=== PATIENT | female | born 1980 | race Caucasian/White ===

== ENCOUNTER 2017-08-18 14:23 | Inpatient (IN) | payer OTHER, MEDICARE ==
[~2017-08-18] VITALS: Ht 170.2 cm; Wt 59.0 kg
[~2017-08-18 14:23] MED LIST: ATEN25TA PO; BROM2.5T3 PO; BUPR300T3 PO; CLON1TAB3 PO; HYDR-2678 PO; LISI-334 PO; OXYC1TAB7 PO; PANT40TA5 PO; PHEN-318 PO
--- NOTE | 2017-08-18 15:09 | PHYS DOC ---
Past Medical History Past Medical History: Abscess, Ovarian Cyst, P.I.D. Additional Past Medical Histor: crohn's Past Surgical History: Oophorectomy Additional Past Surgical Histo: colostomy, left oophorectomy Alcohol Use: Rarely Drug Use: None, Opiates Adult General Chief Complaint Chief Complaint: ABDOMINAL PAIN HPI HPI Patient is a 37 year old female who presents with abdominal pain, nausea vomiting. She states his symptoms started about a month ago and has gotten better but over the last 3 days Has gotten worse. She states whenever she is trying to relate she has to push extremely hard and her stoma comes up and then it comes back again. She states she's been having normal ostomy output. She states her pain is in her suprapubic area. She states she's been having some nausea and vomiting over the last several days. She denies any fevers or chills or chest pain or shortness of breath. She states in November Dr. Holt moves her stoma from the right lower quadrant to the left lower quadrant. She states she feels like the scar tissue from her old stoma is was causing the pain and discomfort. She states her GI doctor is Dr. Richard Loco. Her primary care physician is Dr. Leland Purcell from [facility]. Review of Systems Review of Systems Constitutional: Denies fever or chills [] Eyes: Denies change in visual acuity, redness, or eye pain [] HENT: Denies nasal congestion or sore throat [] Respiratory: Denies cough or shortness of breath [] Cardiovascular: No additional information not addressed in HPI [] GI: Positive for abdominal pain, nausea, vomiting, Deniesbloody stools or diarrhea [] : Denies dysuria or hematuria [] Musculoskeletal: Denies back pain or joint pain [] Integument: Denies rash or skin lesions [] Neurologic: Denies headache, focal weakness or sensory changes [] Endocrine: Denies polyuria or polydipsia [] Current Medications Current Medications Current Medications Medications (Trade) Dose Ordered Sig/Jay Jay Start Time Stop Time Status Last Admin Dose Admin Diphenhydramine HCl (Benadryl) 25 mg 1X ONCE 08/18/17 16:15 08/18/17 16:16 DC 08/18/17 16:07 25 MG Hydromorphone HCl (Dilaudid) 1 mg PRN Q15MIN PRN 08/18/17 16:00 08/19/17 15:59 08/18/17 16:08 1 MG Morphine Sulfate 2 mg PRN Q15MIN PRN 08/18/17 15:30 08/19/17 15:29 08/18/17 15:38 2 MG Ondansetron HCl (Zofran) 4 mg 1X ONCE 08/18/17 16:15 08/18/17 16:16 DC 08/18/17 16:07 4 MG Sodium Chloride 1,000 ml @ 1,000 mls/hr Q1H 08/18/17 15:30 08/18/17 16:29 DC 08/18/17 15:37 1,000 MLS/HR Allergies Allergies Allergies Coded Allergies Type Severity Reaction Last Updated Verified Iodinated Contrast- Oral and IV Dye Allergy Severe Hives 08/20/14 Yes clindamycin Allergy Severe Hives, feeling of thickening of the throat Yes promethazine Allergy Severe ANAPHALAXIS 08/23/14 Yes amoxicillin Allergy Intermediate Cephalosporins OK 10/09/14 No fentanyl Allergy Intermediate 08/04/14 Yes metoclopramide Allergy Intermediate 08/04/14 Yes ondansetron Allergy Intermediate takes zofran odt at home 08/18/17 Yes Physical Exam Physical Exam Constitutional: Well developed, well nourished, no acute distress, non-toxic appearance. [] HENT: Normocephalic, atraumatic, bilateral external ears normal, oropharynx moist, no oral exudates, nose normal. [] Eyes: PERRLA, EOMI, conjunctiva normal, no discharge. [] Neck: Normal range of motion, no tenderness, supple, no stridor. [] Cardiovascular:Heart rate regular rhythm, no murmur [] Lungs & Thorax: Bilateral breath sounds clear to auscultation [] Abdomen: Bowel sounds hypoactive, soft, tender palpation throughout the bilateral lower quadrants, no rebound or guarding, multiple well-healed incisions throughout the abdominal area, no masses, no pulsatile masses. [] Skin: Warm, dry, no erythema, no rash. [] Back: No tenderness, no CVA tenderness. [] Extremities: No tenderness, no cyanosis, no clubbing, ROM intact, no edema. [] Neurologic: Alert and oriented X 3, normal motor function, normal sensory function, no focal deficits noted. [] Psychologic: Affect normal, judgement normal, mood normal. [] Current Patient Data Vital Signs Vital Signs Date Time Temp Pulse Resp B/P (MAP) Pulse Ox O2 Delivery O2 Flow Rate FiO2 08/18/17 16:55 22 Room Air 08/18/17 15:30 103 127/88 (101) 98 08/18/17 14:39 98.0 98.0 Lab Values Laboratory Tests Test 08/18/17 15:25 08/18/17 16:18 08/18/17 16:34 White Blood Count 9.7 x10^3/uL (4.0-11.0) Red Blood Count 4.97 x10^6/uL (3.50-5.40) Hemoglobin 15.2 g/dL (12.0-15.5) Hematocrit 45.7 % (36.0-47.0) Mean Corpuscular Volume 92 fL (79-100) Mean Corpuscular Hemoglobin 31 pg (25-35) Mean Corpuscular Hemoglobin Concent 33 g/dL (31-37) Red Cell Distribution Width 13.0 % (11.5-14.5) Platelet Count 276 x10^3/uL (140-400) Neutrophils (%) (Auto) 63 % (31-73) Lymphocytes (%) (Auto) 27 % (24-48) Monocytes (%) (Auto) 8 % (0-9) Eosinophils (%) (Auto) 1 % (0-3) Basophils (%) (Auto) 1 % (0-3) Neutrophils # (Auto) 6.1 x10^3uL (1.8-7.7) Lymphocytes # (Auto) 2.6 x10^3/uL (1.0-4.8) Monocytes # (Auto) 0.8 x10^3/uL (0.0-1.1) Eosinophils # (Auto) 0.1 x10^3/uL (0.0-0.7) Basophils # (Auto) 0.1 x10^3/uL (0.0-0.2) Sodium Level 137 mmol/L (136-145) Potassium Level 4.4 mmol/L (3.5-5.1) Chloride Level 100 mmol/L (98-107) Carbon Dioxide Level 25 mmol/L (21-32) Anion Gap 12 (6-14) Blood Urea Nitrogen 15 mg/dL (7-20) Creatinine 1.0 mg/dL (0.6-1.0) Estimated GFR (Cockcroft-Gault) 62.4 Glucose Level 103 mg/dL (70-99) H Calcium Level 9.7 mg/dL (8.5-10.1) Total Bilirubin 0.6 mg/dL (0.2-1.0) Direct Bilirubin 0.1 mg/dL (0.0-0.2) Aspartate Amino Transferase (AST) 27 U/L (15-37) Alanine Aminotransferase (ALT) 54 U/L (14-59) Alkaline Phosphatase 106 U/L (46-116) Creatine Kinase 75 U/L (26-192) Creatine Kinase MB (Mass) 0.5 ng/mL (0.0-3.6) Creatine Kinase MB Relative Index 0.7 % (0-4) Total Protein 8.2 g/dL (6.4-8.2) Albumin 4.5 g/dL (3.4-5.0) Lipase 390 U/L (73-393) Prothrombin Time 12.9 SEC (11.7-14.0) Prothrombin Time INR 1.0 (0.8-1.1) PTT 30 SEC (24-38) Urine Collection Type U cath Urine Color Yellow Urine Clarity Clear Urine pH 6.0 Urine Specific [place] 1.025 Urine Protein 100 mg/dL (NEG-TRACE) Urine Glucose (UA) Negative mg/dL (NEG) Urine Ketones (Stick) Negative mg/dL (NEG) Urine Blood Negative (NEG) Urine Nitrite Negative (NEG) Urine Bilirubin Negative (NEG) Urine Urobilinogen Dipstick 0.2 mg/dL (0.2 mg/dL) Urine Leukocyte Esterase Small (NEG) Urine RBC 0 /HPF (0-2) Urine WBC 1-4 /HPF (0-4) Urine Bacteria 0 /HPF (0-FEW) Urine Mucus Mod /LPF Urine Opiates Screen Pos (NEG) Urine Methadone Screen Neg (NEG) Urine Barbiturates Neg (NEG) Urine Phencyclidine Screen Neg (NEG) Urine Amphetamine/Methamphetamine Neg (NEG) Urine Benzodiazepines Screen Pos (NEG) Urine Cocaine Screen Neg (NEG) Urine Cannabinoids Screen Neg (NEG) Urine Ethyl Alcohol Neg (NEG) Laboratory Tests 08/18/17 15:25 Laboratory Tests 08/18/17 15:25 EKG EKG [] Radiology/Procedures Radiology/Procedures [facility] [address] [place], [place] [id number] IMAGING REPORT Signed PATIENT: MATTHEW HOLGUIN ACCOUNT: [id number] : 1980 LOCATION: ER AGE: 37 SEX: F EXAM STATUS: REG ER ORD. PHYSICIAN: VICKIE RIVERA MD REASON: abd pain PROCEDURE: CT ABD PEL W/ORAL CONTRST ONLY CT ABD PEL W/ORAL CONTRST ONLY dated 08/18/2017 5:18 PM Indication: Abdominal pain and cramping Comparison: October 10, 2014 Technique: CT imaging was performed of the[abdomen and pelvis after administration of oral contrast], multiplanar reconstruction images submitted. No intravenous contrast was given due to stated allergy to iodine. One or more of the following individualized dose reduction techniques were utilized for this examination: 1. Automated exposure control 2. Adjustment of the mA and/or kV according to patient size 3. Use of iterative reconstruction technique. Findings: There is no significant abnormality of the limited visualized lung bases. Accurate evaluation of the abdominal visceral organs is limited without intravenous contrast. There is no obvious focal abnormality of the liver, spleen, pancreas. There has been cholecystectomy. There is larger exophytic lesion arising from the superior left kidney up to 1.3 cm versus previously 0.5 cm, density measurements slightly hyperdense compared with adjacent renal parenchyma. There is also more hyperdense lesion of the mid left kidney up to 1.1 cm, density measurements of 99 Hounsfield units versus renal parenchyma 36 Hounsfield units. This is larger as previously 0.8 cm. There is a small hyperdense lesion of the mid to inferior right kidney up to 0.4 cm. There is mild wall thickening of small bowel in the pelvis. There is a left ostomy. There has been colectomy. There is a small quantity of dependent free fluid in the pelvis. No free air is identified. 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 There is lumbar levoscoliosis. IMPRESSION: 1. Wall thickening of small bowel in the pelvis may be due to enteritis. There is a small quantity of nonspecific dependent free fluid in the pelvis. 2. There are foci of abnormal density of the left kidney, one of which is most likely due to a hyperdense hemorrhagic or proteinaceous cyst. Exophytic lesion arising from the superior left kidney is more similar to adjacent renal parenchyma, solid mass not excluded for which nonemergent pre and postcontrast CT or ultrasound advised. Electronically signed by: Marlen Camarillo MD (08/18/2017 5:56 PM) [facility] DICTATED and SIGNED BY: MARLEN CAMARILLO MD DATE: 08/18/17 0643 CC: LELAND PURCELL; VICKIE RIVERA MD ~ Impressions: Abdominal pain Crohn's disease Course & Med Decision Making Course & Med Decision Making Pertinent Labs and Imaging studies reviewed. (See chart for details) She's having severe pain and nausea which she has received Zofran with Benadryl IV fluids. CT with oral contrast and pelvis shows enteritis without any other acute abdomen mildly. Patient is requiring admission for pain control and IV hydration. She is in stable condition this time be admitted to the hospitalist. Her GI doc is Dr. Richard Loco but I do not believe he still is on staff at [place] therefore we will consult GI singer songwriter. Dragon Disclaimer Dragon Disclaimer This electronic medical record was generated, in whole or in part, using a voice recognition dictation system. Departure Departure Impression: Primary Impression: Abdominal pain Disposition: 09 ADMITTED INPATIENT Admitting Physician: Other Condition: STABLE Referrals: LELAND PURCELL (PCP) Problem Qualifiers Primary Impression: Abdominal pain Abdominal location: right lower quadrant Qualified Codes: R10.31 - Right lower quadrant pain VICKIE RIVERA MD Aug 18, 2017 15:09
[2017-08-18] MEDS ORDERED: IV NORMAL SALINE 1000ML BAG 1,000 ML IV SCH (15:30)
[2017-08-18] MEDS ORDERED: MORPHINE SULFATE 2 MG/ML DISP.SYRIN. IV/SQ PRN (15:30)
[2017-08-18] MEDS ORDERED: CLON0.5T3 PO (15:34)
[2017-08-18] MEDS ORDERED: BUSP15TA PO (15:34)
[2017-08-18] MEDS ORDERED: ONDA4TAB10 PO (15:37)
[2017-08-18] MEDS ORDERED: SIME125C65 PO (15:37)
[2017-08-18] MEDS ORDERED: PANT40TA3 PO (15:37)
[2017-08-18] MEDS ORDERED: BIOT10006 PO (15:37)
[2017-08-18 15:39] LABS: BASO # 0.1 x10^3/uL (0.0-0.2); BASO % 1 % (0-3); EOS % 1 % (0-3); HEMATOCRIT 45.7 % (36.0-47.0); HEMOGLOBIN 15.2 g/dL (12.0-15.5); LYMPH # 2.6 x10^3/uL (1.0-4.8); LYMPH % 27 % (24-48); MEAN CORPUSCULAR HEMOGLOBIN 31 pg (25-35); MEAN CORPUSCULAR HGB CONC 33 g/dL (31-37); MEAN CORPUSCULAR VOLUME 92 fL (79-100); MONO % 8 % (0-9); NEUT % 63 % (31-73); PLATELET COUNT 276 x10^3/uL (140-400); RED BLOOD COUNT 4.97 x10^6/uL (3.50-5.40); WHITE BLOOD COUNT 9.7 x10^3/uL (4.0-11.0)
[2017-08-18 16:00] LABS: ALBUMIN 4.5 g/dL (3.4-5.0); CALCIUM 9.7 mg/dL (8.5-10.1); DIRECT BILIRUBIN 0.1 mg/dL (0.0-0.2); GFR 62.4; POTASSIUM 4.4 mmol/L (3.5-5.1); TOTAL BILIRUBIN 0.6 mg/dL (0.2-1.0); TOTAL PROTEIN 8.2 g/dL (6.4-8.2)
[2017-08-18] MEDS ORDERED: HYDROmorphone 2 MG/ML VIAL IV/SQ PRN (16:00)
[2017-08-18 16:07] LABS: CKMB MASS 0.5 ng/mL (0.0-3.6)
[2017-08-18] MEDS ORDERED: ONDANSETRON PF 4 MG/2 ML VIAL. IV ONE ×2 (16:15→18:30)
[2017-08-18] MEDS ORDERED: diphenhydrAMINE 50 MG/ML VIAL IVP ONE ×2 (16:15→18:30)
[2017-08-18 16:36] LABS: PROTHROMBIN TIME PATIENT 12.9 SEC (11.7-14.0)
[2017-08-18 16:43] LABS: BILIRUBIN,URINE NEGATIVE (NEG); GLUCOSE,URINE NEGATIVE (NEG); NITRITE,URINE NEGATIVE (NEG); PROTEIN,URINE 100 mg/dL (NEG-TRACE); UROBILINOGEN,URINE 0.2 mg/dL (0.2 mg/dL)
[2017-08-18 16:51] LABS: BARBITURATES NEG (NEG); BENZODIAZEPINES POS (NEG); CANNABINOIDS NEG (NEG); COCAINE NEG (NEG); METHADONE NEG (NEG); OPIATES POS (NEG); PHENCYCLIDINE NEG (NEG)
[2017-08-18 16:53] LABS: BACTERIA,URINE 0 /HPF (0-FEW); RBC,URINE 0 /HPF (0-2)
--- NOTE | 2017-08-18 17:59 | RAD ---
CT ABD PEL W/ORAL CONTRST ONLY dated 08/18/2017 5:18 PM Indication: Abdominal pain and cramping Comparison: October 10, 2014 Technique: CT imaging was performed of the[abdomen and pelvis after administration of oral contrast], multiplanar reconstruction images submitted. No intravenous contrast was given due to stated allergy to iodine. One or more of the following individualized dose reduction techniques were utilized for this examination: 1. Automated exposure control 2. Adjustment of the mA and/or kV according to patient size 3. Use of iterative reconstruction technique. Findings: There is no significant abnormality of the limited visualized lung bases. Accurate evaluation of the abdominal visceral organs is limited without intravenous contrast. There is no obvious focal abnormality of the liver, spleen, pancreas. There has been cholecystectomy. There is larger exophytic lesion arising from the superior left kidney up to 1.3 cm versus previously 0.5 cm, density measurements slightly hyperdense compared with adjacent renal parenchyma. There is also more hyperdense lesion of the mid left kidney up to 1.1 cm, density measurements of 99 Hounsfield units versus renal parenchyma 36 Hounsfield units. This is larger as previously 0.8 cm. There is a small hyperdense lesion of the mid to inferior right kidney up to 0.4 cm. There is mild wall thickening of small bowel in the pelvis. There is a left ostomy. There has been colectomy. There is a small quantity of dependent free fluid in the pelvis. No free air is identified. 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 There is lumbar levoscoliosis. IMPRESSION: 1. Wall thickening of small bowel in the pelvis may be due to enteritis. There is a small quantity of nonspecific dependent free fluid in the pelvis. 2. There are foci of abnormal density of the left kidney, one of which is most likely due to a hyperdense hemorrhagic or proteinaceous cyst. Exophytic lesion arising from the superior left kidney is more similar to adjacent renal parenchyma, solid mass not excluded for which nonemergent pre and postcontrast CT or ultrasound advised. Electronically signed by: Amilcar Camarillo MD (08/18/2017 5:56 PM) [facility]
[2017-08-18] MEDS ORDERED: HYDROmorphone 2 MG/ML VIAL IV PRN (18:30)
[2017-08-18] MEDS ORDERED: diphenhydrAMINE HCL 25 MG CAPSULE PO PRN (18:30)
[2017-08-18] MEDS ORDERED: hydrALAZINE 20 MG/ML VIAL. IVP PRN (19:00)
[2017-08-18 19:55] VITALS: BP 123/86
[2017-08-18 20:00] VITALS: BP 123/86
[2017-08-18] MEDS ORDERED: DIPH25CA58 PO (20:45)
[2017-08-18 23:00] VITALS: BP 120/86
[2017-08-19] VITALS (12 sets, daily range): BP systolic 113–132; BP diastolic 68–94
[2017-08-19] MEDS: HYDROmorphone 2 MG/ML VIAL IV PRN ×7 (00:15→20:21)
[2017-08-19] MEDS: ONDANSETRON PF 4 MG/2 ML VIAL. IV PRN ×3 (00:29→20:20)
[2017-08-19] MEDS ORDERED: clonazePAM 0.5 MG TABLET PO PRN (00:45)
--- NOTE | 2017-08-19 01:27 | HP ---
ADMIT DATE: 08/18/2017 CHIEF COMPLAINT: Abdominal pain. HISTORY OF PRESENT ILLNESS: The patient is a 37-year-old woman with Crohn disease, status post colectomy with ileostomy as well as revision of ileostomy from right lower quadrant to left about 7 months ago. She presented to the Emergency Room with a 3-day history of severe abdominal pain and distention. Pain actually has been getting worse and worse. She relates that she is having difficulties with urination as well as she cannot relieve herself without pressure. This unfortunately caused pressure on her stoma, which popped out easily causing additional pain. She relates that she actually has a lot of scar tissue from the revision of her previous stoma, which had issues requiring multiple surgeries as well. She has not been able to urinate for at least 24 hours. Her bowel movements, however, remain loose in the ostomy. No blood has been observed. PAST MEDICAL HISTORY: Crohn's with abdominal surgeries as above, ovarian cysts, PID, status post left oophorectomy, status post colectomy with ileostomy secondary to Crohn's. FAMILY HISTORY: Negative for Crohn's. SOCIAL HISTORY: No toxic habits. ALLERGIES: MULTIPLE INCLUDING IODINATED CONTRAST, AMOXICILLIN, CLINDAMYCIN, FENTANYL, METOCLOPRAMIDE, ONDANSETRON AND PROMETHAZINE. MEDICATIONS: MAR reconciled with home meds. REVIEW OF SYSTEMS: Positive as per HPI. Denies any hematochezia, any hematemesis. Denies any shortness of breath or chest pain. Rest of organ system review is negative as well. PHYSICAL EXAMINATION: VITAL SIGNS: From today show a blood pressure of 120/86, heart rate of 95, respiratory rate at 19, she is afebrile. GENERAL: This is a 37-year-old well-nourished woman, awake, in mild distress secondary to abdominal pain. HEENT: Shows no scleral icterus. NECK: Supple. LUNGS: Clear anteriorly. HEART: Regular rate and rhythm. ABDOMEN: Distended, ileostomy in the left lower quadrant with well-healed surgical scar from previous ostomy on the right lower quadrant. She has exquisite tenderness to palpation, especially just above pubic ramus, but in rest of entire abdomen as well. EXTREMITIES: Show no edema. SKIN: Warm, soft and dry. LABORATORY DATA: CBC with a WBC of 9.7, hemoglobin 15.2, platelets of 276. Chemistries with a BUN and creatinine of 15 and 1, normal electrolytes, normal LFTs. Lipase at 390, tox positive for benzos and opiates. UA is negative. IMAGING: Abdomen/pelvis CT shows wall thickening of the small bowel in the pelvis, also foci of abnormal density in the left kidney, which is most likely due to hyperdense hemorrhagic proteinaceous cyst. ASSESSMENT AND PLAN: The patient is a 37-year-old woman who presents with what appears to be Crohn's exacerbation. We will start her on steroids for now. Gastroenterology consult has been requested. For her pain, she states Dilaudid is her preferred medication, but she requests 2 mg. We will get that going for her. She is also nauseous, but allergic to every single antiemetic. She states that she typically takes intravenous Zofran with intravenous Benadryl together to prevent anaphylaxis with throat swelling and hives. Her electrolytes are slightly off. We will replete intravenous for the time being to avoid oral route as much as possible. We will continue all her other home medications as indicated. ASHLEY AMADOR MD DR: JAJA/ismael JOB#: [id number] / [id number] LELAND Waite
[2017-08-19 05:33] LABS: BASO % 1 % (0-3); EOS % 4 % (0-3); HEMATOCRIT 42.1 % (36.0-47.0); LYMPH % 43 % (24-48); MEAN CORPUSCULAR HEMOGLOBIN 30 pg (25-35); MEAN CORPUSCULAR HGB CONC 33 g/dL (31-37); MEAN CORPUSCULAR VOLUME 92 fL (79-100); MONO % 9 % (0-9); NEUT % 44 % (31-73); PLATELET COUNT 222 x10^3/uL (140-400); RED BLOOD COUNT 4.59 x10^6/uL (3.50-5.40)
[2017-08-19 05:56] LABS: CALCIUM 9.2 mg/dL (8.5-10.1); GFR 62.4; POTASSIUM 4.1 mmol/L (3.5-5.1)
[2017-08-19] MEDS ORDERED: diphenhydrAMINE 50 MG/ML VIAL IVP ONE (06:30)
[2017-08-19] MEDS: FAMOTIDINE 20 MG/2 ML VIAL IVP SCH ×3 (06:39→20:21)
[2017-08-19] MEDS ORDERED: PANTOPRAZOLE 40 MG TABLET.DR. PO SCH (07:30)
[2017-08-19] MEDS: busPIRone 5 MG TABLET. PO SCH ×2 (08:58→20:27)
[2017-08-19] MEDS: buPROPion XL 150 MG TAB.ER.24H. PO SCH ×2 (08:59→20:26)
[2017-08-19] MEDS: clonazePAM 1 MG TABLET PO SCH ×3 (08:59→20:26)
[2017-08-19] MEDS: HYDROCORTISONE SOD SUCC/PF 100 MG/2 ML VIAL. IV SCH ×2 (14:07→20:25)
--- NOTE | 2017-08-19 14:20 | PDOC ---
Infectious Disease Note Vital Sign Vital Signs Vital Signs Date Time Temp Pulse Resp B/P (MAP) Pulse Ox O2 Delivery O2 Flow Rate FiO2 08/19/17 11:00 98.5 102 18 121/78 (92) 97 Room Air 98.5 Labs Lab Laboratory Tests Test 08/18/17 15:25 08/18/17 16:18 08/18/17 16:34 08/19/17 05:05 White Blood Count 9.7 x10^3/uL (4.0-11.0) 7.0 x10^3/uL (4.0-11.0) Red Blood Count 4.97 x10^6/uL (3.50-5.40) 4.59 x10^6/uL (3.50-5.40) Hemoglobin 15.2 g/dL (12.0-15.5) 14.0 g/dL (12.0-15.5) Hematocrit 45.7 % (36.0-47.0) 42.1 % (36.0-47.0) Mean Corpuscular Volume 92 fL (79-100) 92 fL (79-100) Mean Corpuscular Hemoglobin 31 pg (25-35) 30 pg (25-35) Mean Corpuscular Hemoglobin Concent 33 g/dL (31-37) 33 g/dL (31-37) Red Cell Distribution Width 13.0 % (11.5-14.5) 13.0 % (11.5-14.5) Platelet Count 276 x10^3/uL (140-400) 222 x10^3/uL (140-400) Neutrophils (%) (Auto) 63 % (31-73) 44 % (31-73) Lymphocytes (%) (Auto) 27 % (24-48) 43 % (24-48) Monocytes (%) (Auto) 8 % (0-9) 9 % (0-9) Eosinophils (%) (Auto) 1 % (0-3) 4 % (0-3) Basophils (%) (Auto) 1 % (0-3) 1 % (0-3) Neutrophils # (Auto) 6.1 x10^3uL (1.8-7.7) 3.1 x10^3uL (1.8-7.7) Lymphocytes # (Auto) 2.6 x10^3/uL (1.0-4.8) 3.0 x10^3/uL (1.0-4.8) Monocytes # (Auto) 0.8 x10^3/uL (0.0-1.1) 0.6 x10^3/uL (0.0-1.1) Eosinophils # (Auto) 0.1 x10^3/uL (0.0-0.7) 0.2 x10^3/uL (0.0-0.7) Basophils # (Auto) 0.1 x10^3/uL (0.0-0.2) 0.0 x10^3/uL (0.0-0.2) Sodium Level 137 mmol/L (136-145) 138 mmol/L (136-145) Potassium Level 4.4 mmol/L (3.5-5.1) 4.1 mmol/L (3.5-5.1) Chloride Level 100 mmol/L (98-107) 102 mmol/L (98-107) Carbon Dioxide Level 25 mmol/L (21-32) 25 mmol/L (21-32) Anion Gap 12 (6-14) 11 (6-14) Blood Urea Nitrogen 15 mg/dL (7-20) 11 mg/dL (7-20) Creatinine 1.0 mg/dL (0.6-1.0) 1.0 mg/dL (0.6-1.0) Estimated GFR (Cockcroft-Gault) 62.4 62.4 Glucose Level 103 mg/dL (70-99) 138 mg/dL (70-99) Calcium Level 9.7 mg/dL (8.5-10.1) 9.2 mg/dL (8.5-10.1) Total Bilirubin 0.6 mg/dL (0.2-1.0) Direct Bilirubin 0.1 mg/dL (0.0-0.2) Aspartate Amino Transf (AST/SGOT) 27 U/L (15-37) Alanine Aminotransferase (ALT/SGPT) 54 U/L (14-59) Alkaline Phosphatase 106 U/L (46-116) Creatine Kinase 75 U/L (26-192) Creatine Kinase MB (Mass) 0.5 ng/mL (0.0-3.6) Creatine Kinase MB Relative Index 0.7 % (0-4) Total Protein 8.2 g/dL (6.4-8.2) Albumin 4.5 g/dL (3.4-5.0) Lipase 390 U/L (73-393) Prothrombin Time 12.9 SEC (11.7-14.0) Prothromb Time International Ratio 1.0 (0.8-1.1) Activated Partial Thromboplast Time 30 SEC (24-38) Urine Collection Type U cath Urine Color Yellow Urine Clarity Clear Urine pH 6.0 Urine Specific [place] 1.025 Urine Protein 100 mg/dL (NEG-TRACE) Urine Glucose (UA) Negative mg/dL (NEG) Urine Ketones (Stick) Negative mg/dL (NEG) Urine Blood Negative (NEG) Urine Nitrite Negative (NEG) Urine Bilirubin Negative (NEG) Urine Urobilinogen Dipstick 0.2 mg/dL (0.2 mg/dL) Urine Leukocyte Esterase Small (NEG) Urine RBC 0 /HPF (0-2) Urine WBC 1-4 /HPF (0-4) Urine Bacteria 0 /HPF (0-FEW) Urine Mucus Mod /LPF Urine Opiates Screen Pos (NEG) Urine Methadone Screen Neg (NEG) Urine Barbiturates Neg (NEG) Urine Phencyclidine Screen Neg (NEG) Urine Amphetamine/Methamphetamine Neg (NEG) Urine Benzodiazepines Screen Pos (NEG) Urine Cocaine Screen Neg (NEG) Urine Cannabinoids Screen Neg (NEG) Urine Ethyl Alcohol Neg (NEG) Objective Assessment Crohn disease Urinary retention s/p Ingram placement w/ 400 ml drained GERD N/V Plan Plan of Care Ok to begin steroids from ID stand point No need for antibiotics Thank you [id number] Attending Co-Sign The patient was seen and interviewed as well as examined at the bedside. The chart was reviewed. The case was discussed. Agree with the plan of care. ? urethral spasm, no evidence for infection ARISTIDES ANGELA APRN Aug 19, 2017 14:20 ALETA CELESTE MD Aug 19, 2017 14:22
[2017-08-19] MEDS ORDERED: ACETAMINOPHEN 325 MG TABLET. PO PRN (14:30)
[2017-08-19] MEDS ORDERED: DOCUSATE SODIUM 100 MG CAPSULE. PO PRN (14:30)
[2017-08-19] MEDS ORDERED: traMADol 50 MG TABLET PO PRN (14:30)
[2017-08-19] MEDS ORDERED: hydrALAZINE 20 MG/ML VIAL. IVP PRN (14:30)
--- NOTE | 2017-08-19 14:35 | PDOC ---
PROGRESS NOTES Chief Complaint Chief Complaint cc: cannot pee urinary retention on matos now possible abnormal urinary tract anatomy with multiple abd sx history multiple abd sx for crohns dz and has ileostomy now h/o ovarian cysts, PID, status post left oophorectomy, status post colectomy with ileostomy secondary to Crohn's known left kidney cyst plan: gi consulted, on steroid now id consult, no abx needed on matos check renal US, told pt may need to transfer to [facility] [place] if no GI intervention done zofran and iv benadryl pain control refused IVF for now clear liquid diet dvt , gi ppx History of Present Illness History of Present Illness ROS: no fever, chills, sob or chest pain c/o lower abd pain, pt has urinary problem for a long time and that is the reason coming here, had a uro appt in Sep. was told to come to [place] or for gi for 2nd opinion, wants to see dr. Burch said ileostomy works ok for her severe nausea, like to take both zofran and benadryl together, saying allergic to zofran ,but ok with benadry together refuse ivf know left kidney cyst only want clear liquid diet for now Vitals Vitals Vital Signs Date Time Temp Pulse Resp B/P (MAP) Pulse Ox O2 Delivery O2 Flow Rate FiO2 08/19/17 11:00 98.5 102 18 121/78 (92) 97 Room Air 98.5 Physical Exam General: Alert, Oriented X3, Cooperative Heart: Regular rate, Normal S1, Normal S2 Lungs: Clear Abdomen: Normal bowel sounds, Soft, Other (lower abd tenderness) Extremities: No clubbing, No cyanosis Skin: No rashes Labs LABS Laboratory Tests Test 08/18/17 15:25 08/18/17 16:18 08/18/17 16:34 08/19/17 05:05 White Blood Count 9.7 x10^3/uL (4.0-11.0) 7.0 x10^3/uL (4.0-11.0) Red Blood Count 4.97 x10^6/uL (3.50-5.40) 4.59 x10^6/uL (3.50-5.40) Hemoglobin 15.2 g/dL (12.0-15.5) 14.0 g/dL (12.0-15.5) Hematocrit 45.7 % (36.0-47.0) 42.1 % (36.0-47.0) Mean Corpuscular Volume 92 fL (79-100) 92 fL (79-100) Mean Corpuscular Hemoglobin 31 pg (25-35) 30 pg (25-35) Mean Corpuscular Hemoglobin Concent 33 g/dL (31-37) 33 g/dL (31-37) Red Cell Distribution Width 13.0 % (11.5-14.5) 13.0 % (11.5-14.5) Platelet Count 276 x10^3/uL (140-400) 222 x10^3/uL (140-400) Neutrophils (%) (Auto) 63 % (31-73) 44 % (31-73) Lymphocytes (%) (Auto) 27 % (24-48) 43 % (24-48) Monocytes (%) (Auto) 8 % (0-9) 9 % (0-9) Eosinophils (%) (Auto) 1 % (0-3) 4 % (0-3) Basophils (%) (Auto) 1 % (0-3) 1 % (0-3) Neutrophils # (Auto) 6.1 x10^3uL (1.8-7.7) 3.1 x10^3uL (1.8-7.7) Lymphocytes # (Auto) 2.6 x10^3/uL (1.0-4.8) 3.0 x10^3/uL (1.0-4.8) Monocytes # (Auto) 0.8 x10^3/uL (0.0-1.1) 0.6 x10^3/uL (0.0-1.1) Eosinophils # (Auto) 0.1 x10^3/uL (0.0-0.7) 0.2 x10^3/uL (0.0-0.7) Basophils # (Auto) 0.1 x10^3/uL (0.0-0.2) 0.0 x10^3/uL (0.0-0.2) Sodium Level 137 mmol/L (136-145) 138 mmol/L (136-145) Potassium Level 4.4 mmol/L (3.5-5.1) 4.1 mmol/L (3.5-5.1) Chloride Level 100 mmol/L (98-107) 102 mmol/L (98-107) Carbon Dioxide Level 25 mmol/L (21-32) 25 mmol/L (21-32) Anion Gap 12 (6-14) 11 (6-14) Blood Urea Nitrogen 15 mg/dL (7-20) 11 mg/dL (7-20) Creatinine 1.0 mg/dL (0.6-1.0) 1.0 mg/dL (0.6-1.0) Estimated GFR (Cockcroft-Gault) 62.4 62.4 Glucose Level 103 mg/dL (70-99) 138 mg/dL (70-99) Calcium Level 9.7 mg/dL (8.5-10.1) 9.2 mg/dL (8.5-10.1) Total Bilirubin 0.6 mg/dL (0.2-1.0) Direct Bilirubin 0.1 mg/dL (0.0-0.2) Aspartate Amino Transf (AST/SGOT) 27 U/L (15-37) Alanine Aminotransferase (ALT/SGPT) 54 U/L (14-59) Alkaline Phosphatase 106 U/L (46-116) Creatine Kinase 75 U/L (26-192) Creatine Kinase MB (Mass) 0.5 ng/mL (0.0-3.6) Creatine Kinase MB Relative Index 0.7 % (0-4) Total Protein 8.2 g/dL (6.4-8.2) Albumin 4.5 g/dL (3.4-5.0) Lipase 390 U/L (73-393) Prothrombin Time 12.9 SEC (11.7-14.0) Prothromb Time International Ratio 1.0 (0.8-1.1) Activated Partial Thromboplast Time 30 SEC (24-38) Urine Collection Type U cath Urine Color Yellow Urine Clarity Clear Urine pH 6.0 Urine Specific Duck 1.025 Urine Protein 100 mg/dL (NEG-TRACE) Urine Glucose (UA) Negative mg/dL (NEG) Urine Ketones (Stick) Negative mg/dL (NEG) Urine Blood Negative (NEG) Urine Nitrite Negative (NEG) Urine Bilirubin Negative (NEG) Urine Urobilinogen Dipstick 0.2 mg/dL (0.2 mg/dL) Urine Leukocyte Esterase Small (NEG) Urine RBC 0 /HPF (0-2) Urine WBC 1-4 /HPF (0-4) Urine Bacteria 0 /HPF (0-FEW) Urine Mucus Mod /LPF Urine Opiates Screen Pos (NEG) Urine Methadone Screen Neg (NEG) Urine Barbiturates Neg (NEG) Urine Phencyclidine Screen Neg (NEG) Urine Amphetamine/Methamphetamine Neg (NEG) Urine Benzodiazepines Screen Pos (NEG) Urine Cocaine Screen Neg (NEG) Urine Cannabinoids Screen Neg (NEG) Urine Ethyl Alcohol Neg (NEG) Assessment and Plan Assessmemt and Plan Problems Medical Problems: (1) Abdominal pain Status: Acute Problems: Comment Review of Relevant I have reviewed the following items kathy (where applicable) has been applied. Labs Laboratory Tests Test 08/18/17 15:25 08/18/17 16:18 08/18/17 16:34 08/19/17 05:05 White Blood Count 9.7 x10^3/uL (4.0-11.0) 7.0 x10^3/uL (4.0-11.0) Red Blood Count 4.97 x10^6/uL (3.50-5.40) 4.59 x10^6/uL (3.50-5.40) Hemoglobin 15.2 g/dL (12.0-15.5) 14.0 g/dL (12.0-15.5) Hematocrit 45.7 % (36.0-47.0) 42.1 % (36.0-47.0) Mean Corpuscular Volume 92 fL (79-100) 92 fL (79-100) Mean Corpuscular Hemoglobin 31 pg (25-35) 30 pg (25-35) Mean Corpuscular Hemoglobin Concent 33 g/dL (31-37) 33 g/dL (31-37) Red Cell Distribution Width 13.0 % (11.5-14.5) 13.0 % (11.5-14.5) Platelet Count 276 x10^3/uL (140-400) 222 x10^3/uL (140-400) Neutrophils (%) (Auto) 63 % (31-73) 44 % (31-73) Lymphocytes (%) (Auto) 27 % (24-48) 43 % (24-48) Monocytes (%) (Auto) 8 % (0-9) 9 % (0-9) Eosinophils (%) (Auto) 1 % (0-3) 4 % (0-3) Basophils (%) (Auto) 1 % (0-3) 1 % (0-3) Neutrophils # (Auto) 6.1 x10^3uL (1.8-7.7) 3.1 x10^3uL (1.8-7.7) Lymphocytes # (Auto) 2.6 x10^3/uL (1.0-4.8) 3.0 x10^3/uL (1.0-4.8) Monocytes # (Auto) 0.8 x10^3/uL (0.0-1.1) 0.6 x10^3/uL (0.0-1.1) Eosinophils # (Auto) 0.1 x10^3/uL (0.0-0.7) 0.2 x10^3/uL (0.0-0.7) Basophils # (Auto) 0.1 x10^3/uL (0.0-0.2) 0.0 x10^3/uL (0.0-0.2) Sodium Level 137 mmol/L (136-145) 138 mmol/L (136-145) Potassium Level 4.4 mmol/L (3.5-5.1) 4.1 mmol/L (3.5-5.1) Chloride Level 100 mmol/L (98-107) 102 mmol/L (98-107) Carbon Dioxide Level 25 mmol/L (21-32) 25 mmol/L (21-32) Anion Gap 12 (6-14) 11 (6-14) Blood Urea Nitrogen 15 mg/dL (7-20) 11 mg/dL (7-20) Creatinine 1.0 mg/dL (0.6-1.0) 1.0 mg/dL (0.6-1.0) Estimated GFR (Cockcroft-Gault) 62.4 62.4 Glucose Level 103 mg/dL (70-99) 138 mg/dL (70-99) Calcium Level 9.7 mg/dL (8.5-10.1) 9.2 mg/dL (8.5-10.1) Total Bilirubin 0.6 mg/dL (0.2-1.0) Direct Bilirubin 0.1 mg/dL (0.0-0.2) Aspartate Amino Transf (AST/SGOT) 27 U/L (15-37) Alanine Aminotransferase (ALT/SGPT) 54 U/L (14-59) Alkaline Phosphatase 106 U/L (46-116) Creatine Kinase 75 U/L (26-192) Creatine Kinase MB (Mass) 0.5 ng/mL (0.0-3.6) Creatine Kinase MB Relative Index 0.7 % (0-4) Total Protein 8.2 g/dL (6.4-8.2) Albumin 4.5 g/dL (3.4-5.0) Lipase 390 U/L (73-393) Prothrombin Time 12.9 SEC (11.7-14.0) Prothromb Time International Ratio 1.0 (0.8-1.1) Activated Partial Thromboplast Time 30 SEC (24-38) Urine Collection Type U cath Urine Color Yellow Urine Clarity Clear Urine pH 6.0 Urine Specific Duck 1.025 Urine Protein 100 mg/dL (NEG-TRACE) Urine Glucose (UA) Negative mg/dL (NEG) Urine Ketones (Stick) Negative mg/dL (NEG) Urine Blood Negative (NEG) Urine Nitrite Negative (NEG) Urine Bilirubin Negative (NEG) Urine Urobilinogen Dipstick 0.2 mg/dL (0.2 mg/dL) Urine Leukocyte Esterase Small (NEG) Urine RBC 0 /HPF (0-2) Urine WBC 1-4 /HPF (0-4) Urine Bacteria 0 /HPF (0-FEW) Urine Mucus Mod /LPF Urine Opiates Screen Pos (NEG) Urine Methadone Screen Neg (NEG) Urine Barbiturates Neg (NEG) Urine Phencyclidine Screen Neg (NEG) Urine Amphetamine/Methamphetamine Neg (NEG) Urine Benzodiazepines Screen Pos (NEG) Urine Cocaine Screen Neg (NEG) Urine Cannabinoids Screen Neg (NEG) Urine Ethyl Alcohol Neg (NEG) Laboratory Tests Test 08/18/17 15:25 08/18/17 16:18 08/18/17 16:34 08/19/17 05:05 White Blood Count 9.7 x10^3/uL (4.0-11.0) 7.0 x10^3/uL (4.0-11.0) Red Blood Count 4.97 x10^6/uL (3.50-5.40) 4.59 x10^6/uL (3.50-5.40) Hemoglobin 15.2 g/dL (12.0-15.5) 14.0 g/dL (12.0-15.5) Hematocrit 45.7 % (36.0-47.0) 42.1 % (36.0-47.0) Mean Corpuscular Volume 92 fL (79-100) 92 fL (79-100) Mean Corpuscular Hemoglobin 31 pg (25-35) 30 pg (25-35) Mean Corpuscular Hemoglobin Concent 33 g/dL (31-37) 33 g/dL (31-37) Red Cell Distribution Width 13.0 % (11.5-14.5) 13.0 % (11.5-14.5) Platelet Count 276 x10^3/uL (140-400) 222 x10^3/uL (140-400) Neutrophils (%) (Auto) 63 % (31-73) 44 % (31-73) Lymphocytes (%) (Auto) 27 % (24-48) 43 % (24-48) Monocytes (%) (Auto) 8 % (0-9) 9 % (0-9) Eosinophils (%) (Auto) 1 % (0-3) 4 % (0-3) Basophils (%) (Auto) 1 % (0-3) 1 % (0-3) Neutrophils # (Auto) 6.1 x10^3uL (1.8-7.7) 3.1 x10^3uL (1.8-7.7) Lymphocytes # (Auto) 2.6 x10^3/uL (1.0-4.8) 3.0 x10^3/uL (1.0-4.8) Monocytes # (Auto) 0.8 x10^3/uL (0.0-1.1) 0.6 x10^3/uL (0.0-1.1) Eosinophils # (Auto) 0.1 x10^3/uL (0.0-0.7) 0.2 x10^3/uL (0.0-0.7) Basophils # (Auto) 0.1 x10^3/uL (0.0-0.2) 0.0 x10^3/uL (0.0-0.2) Sodium Level 137 mmol/L (136-145) 138 mmol/L (136-145) Potassium Level 4.4 mmol/L (3.5-5.1) 4.1 mmol/L (3.5-5.1) Chloride Level 100 mmol/L (98-107) 102 mmol/L (98-107) Carbon Dioxide Level 25 mmol/L (21-32) 25 mmol/L (21-32) Anion Gap 12 (6-14) 11 (6-14) Blood Urea Nitrogen 15 mg/dL (7-20) 11 mg/dL (7-20) Creatinine 1.0 mg/dL (0.6-1.0) 1.0 mg/dL (0.6-1.0) Estimated GFR (Cockcroft-Gault) 62.4 62.4 Glucose Level 103 mg/dL (70-99) 138 mg/dL (70-99) Calcium Level 9.7 mg/dL (8.5-10.1) 9.2 mg/dL (8.5-10.1) Total Bilirubin 0.6 mg/dL (0.2-1.0) Direct Bilirubin 0.1 mg/dL (0.0-0.2) Aspartate Amino Transf (AST/SGOT) 27 U/L (15-37) Alanine Aminotransferase (ALT/SGPT) 54 U/L (14-59) Alkaline Phosphatase 106 U/L (46-116) Creatine Kinase 75 U/L (26-192) Creatine Kinase MB (Mass) 0.5 ng/mL (0.0-3.6) Creatine Kinase MB Relative Index 0.7 % (0-4) Total Protein 8.2 g/dL (6.4-8.2) Albumin 4.5 g/dL (3.4-5.0) Lipase 390 U/L (73-393) Prothrombin Time 12.9 SEC (11.7-14.0) Prothromb Time International Ratio 1.0 (0.8-1.1) Activated Partial Thromboplast Time 30 SEC (24-38) Urine Collection Type U cath Urine Color Yellow Urine Clarity Clear Urine pH 6.0 Urine Specific Duck 1.025 Urine Protein 100 mg/dL (NEG-TRACE) Urine Glucose (UA) Negative mg/dL (NEG) Urine Ketones (Stick) Negative mg/dL (NEG) Urine Blood Negative (NEG) Urine Nitrite Negative (NEG) Urine Bilirubin Negative (NEG) Urine Urobilinogen Dipstick 0.2 mg/dL (0.2 mg/dL) Urine Leukocyte Esterase Small (NEG) Urine RBC 0 /HPF (0-2) Urine WBC 1-4 /HPF (0-4) Urine Bacteria 0 /HPF (0-FEW) Urine Mucus Mod /LPF Urine Opiates Screen Pos (NEG) Urine Methadone Screen Neg (NEG) Urine Barbiturates Neg (NEG) Urine Phencyclidine Screen Neg (NEG) Urine Amphetamine/Methamphetamine Neg (NEG) Urine Benzodiazepines Screen Pos (NEG) Urine Cocaine Screen Neg (NEG) Urine Cannabinoids Screen Neg (NEG) Urine Ethyl Alcohol Neg (NEG) Microbiology 08/18/17 Urine Culture - Preliminary, Resulted 08/18/17 Urine Culture Result 1 (LIONEL) - Preliminary, Resulted Medications Current Medications Morphine Sulfate 2 mg PRN Q15MIN PRN IV/SQ PAIN GREATER THAN 3/10 Last administered on 08/18/17 15:38; Start 08/18/17 at 15:30; Stop 08/19/17 at 00:00 ; Status DC Sodium Chloride 1,000 ml @ 1,000 mls/hr Q1H IV Last administered on 08/18/17 15:37; Start 08/18/17 at 15:30; Stop 08/18/17 at 16:29; Status DC Ondansetron HCl (Zofran) 4 mg 1X ONCE IV Last administered on 08/18/17 16:07 ; Start 08/18/17 at 16:15; Stop 08/18/17 at 16:16; Status DC Diphenhydramine HCl (Benadryl) 25 mg 1X ONCE IVP Last administered on 16:07; Start 08/18/17 at 16:15; Stop 08/18/17 at 16:16; Status DC Hydromorphone HCl (Dilaudid) 1 mg PRN Q15MIN PRN IV/SQ PAIN GREATER THAN 3/10 Last administered on 08/18/17 16:08; Start 08/18/17 at 16:00; Stop 08/19/17 at 00:00; Status DC Diphenhydramine HCl (Benadryl) 25 mg 1X ONCE IVP Last administered on 18:31; Start 08/18/17 at 18:30; Stop 08/18/17 at 18:31; Status DC Ondansetron HCl (Zofran) 4 mg 1X ONCE IV Last administered on 08/18/17 18:31 ; Start 08/18/17 at 18:30; Stop 08/18/17 at 18:31; Status DC Ondansetron HCl (Zofran) 4 mg PRN Q8HRS PRN IV NAUSEA/VOMITING Last administered on 08/19/17 00:29; Start 08/18/17 at 18:30; Stop 08/19/17 at 18:29 Diphenhydramine HCl (Benadryl) 25 mg PRN Q6HRS PRN PO nausea Last administered on 08/19/17 00:49; Start 08/18/17 at 18:30 Hydromorphone HCl (Dilaudid) 0.5 mg PRN Q6HRS PRN IV pain Last administered on 08/18/17 18:34; Start 08/18/17 at 18:30; Stop 08/19/17 at 00:00; Status DC Hydralazine HCl (Apresoline) 10 mg PRN Q4HRS PRN IVP htn; Start 08/18/17 at 19: 00; Status Cancel Hydromorphone HCl (Dilaudid) 2 mg PRN Q3HRS PRN IV PAIN Last administered on 10:14; Start 08/19/17 at 00:00 Clonazepam (KlonoPIN) 0.5 mg PRN BID PRN PO ANXIETY; Start 08/19/17 at 00:45 Clonazepam (KlonoPIN) 1 mg TID PO ; Start 08/19/17 at 09:00 Pantoprazole Sodium (Protonix) 40 mg DAILYAC PO ; Start 08/19/17 at 07:30 Bupropion HCl (Wellbutrin Xl) 300 mg BID PO ; Start 08/19/17 at 09:00 Buspirone HCl (Buspar) 15 mg BID PO ; Start 08/19/17 at 09:00 Famotidine (Pepcid) 20 mg BID IVP Last administered on 08/19/17 06:39; Start 08/19/17 at 06:30 Diphenhydramine HCl (Benadryl) 25 mg 1X ONCE IVP Last administered on 06:39; Start 08/19/17 at 06:30; Stop 08/19/17 at 06:31; Status DC Phenazopyridine HCl (Pyridium) 200 mg PRN TID PRN PO URINARY PAIN; Start at 12:45 Hydrocortisone Sodium Succinate (Solu-CORTEF) 100 mg Q8HRS IV Last administered on 08/19/17 14:07; Start 08/19/17 at 14:00 Diphenhydramine HCl (Benadryl) 25 mg PRN Q6HRS PRN IVP ITCHING; Start 08/19/17 at 14:30; Status UNV Active Scripts Active Reported Benadryl (Diphenhydramine Hcl) 25 Mg Capsule 25 Mg PO PRN Q4-6HRS PRN Zofran Odt (Ondansetron) 4 Mg Tab.rapdis 4 Mg PO BID PRN Biotin 10,000 Mcg Tab.rapdis 10,000 Mcg PO DAILY Simethicone 125 Mg Capsule 125 Mg PO DAILY Protonix (Pantoprazole Sodium) 40 Mg Tablet.dr 40 Mg PO DAILY Clonazepam 0.5 Mg Tablet 1 Tab PO BID PRN Buspirone Hcl 15 Mg Tablet 15 Mg PO BID Pyridium (Phenazopyridine Hcl) 200 Mg Tablet 200 Mg PO TID PRN Pantoprazole Sodium 40 Mg Tablet.dr 40 Mg PO DAILY Wellbutrin Xl (Bupropion Hcl) 300 Mg Tab.er.24h 300 Mg PO BID Clonazepam 1 Mg Tablet 1 Tab PO TID Vitals/I & O Vital Sign - Last 24 Hours 08/18/17 08/18/17 08/18/17 08/18/17 14:39 15:30 15:38 16:00 Temp 98.0 98.0 Pulse 122 103 102 Resp 18 18 22 18 B/P (MAP) 138/93 (108) 127/88 (101) 128/93 (105) Pulse Ox 98 98 97 O2 Delivery Room Air Room Air Room Air Room Air 08/18/17 08/18/17 08/18/17 08/18/17 16:08 16:30 16:55 17:00 Pulse 94 101 Resp 18 18 22 18 B/P (MAP) 153/82 (105) 158/98 (118) Pulse Ox 98 98 O2 Delivery Room Air Room Air Room Air Room Air 08/18/17 08/18/17 08/18/17 08/18/17 17:30 18:00 18:30 18:34 Pulse 98 92 92 Resp 18 18 18 18 B/P (MAP) 126/78 (94) 116/76 (89) 123/79 (94) Pulse Ox 95 95 94 95 O2 Delivery Room Air Room Air Room Air Room Air 08/18/17 08/18/17 08/18/17 08/18/17 19:07 19:55 20:00 20:00 Temp 98.0 98.0 Pulse 80 81 Resp 17 19 B/P (MAP) 117/86 (96) 123/86 (98) Pulse Ox 100 O2 Delivery Room Air Room Air Room Air Room Air 08/18/17 08/18/17 08/19/17 08/19/17 20:00 23:00 00:15 03:00 Temp 98.0 97.9 97.6 98.0 97.9 97.6 Pulse 81 95 79 Resp 19 18 19 B/P (MAP) 123/86 (98) 120/86 (97) 113/79 (90) Pulse Ox 100 98 98 O2 Delivery Room Air Room Air Room Air Room Air 08/19/17 08/19/17 08/19/17 08/19/17 03:17 03:51 06:14 06:51 Resp 18 18 18 Pulse Ox 98 98 98 O2 Delivery Room Air Room Air Room Air 08/19/17 08/19/17 07:00 11:00 Temp 97.9 98.5 97.9 98.5 Pulse 91 102 Resp 16 18 B/P (MAP) 125/94 (104) 121/78 (92) Pulse Ox 96 97 O2 Delivery Room Air Room Air ROMAN QUESADA MD Aug 19, 2017 14:35
[2017-08-19] MEDS: diphenhydrAMINE 50 MG/ML VIAL IVP PRN ×2 (14:58→20:20)
[2017-08-19] MEDS: PHENAZOPYRIDINE 200 MG TABLET. PO PRN (18:09)
[2017-08-19] MEDS ORDERED: FAMOTIDINE 20 MG/2 ML VIAL IVP SCH (21:00)
--- NOTE | 2017-08-19 21:27 | CONS ---
DATE OF CONSULTATION: 08/19/2017 REQUESTING PHYSICIAN: Dr. Keysha Moreno. PRIMARY CARE PHYSICIAN: Dr. Leland Purcell. REASON FOR CONSULTATION: Crohn's. HISTORY OF PRESENT ILLNESS: This is a 37-year-old female with a past medical history significant for Crohn disease status post colectomy and ileostomy. She underwent an ileostomy revision in 11/2016. She reports that since then she has had multiple episodes of what she calls bowel obstruction. These are characterized by episodes of decreased urinary output and lower abdominal pain. Nausea and emesis accompany this. She denies any hematemesis. She was at [facility] weeks ago with similar symptoms. At that time, she was told that she is to be transferred to another hospital. Apparently, her insurance did not cover this so she just went home. She reports that she again has had multiple episodes of bowel obstructions since her ostomy revision in November. These are continuously characterized by episodes of hesitancy and inability to urinate. She then is treated with antibiotics for urinary tract infections and then her symptoms resolve. She had previously been on Humira and apparently Dr. Zeeshan Loco got Entyvio approved for her, but she did not try it due to noncompliance. She states that in general her colorectal surgeon, Dr. Holt and Dr. Zeeshan Loco have asked her to come to the office for followup, but she does not like going to see doctors and she does not follow up. Otherwise, she also has back pain at this time. PAST MEDICAL HISTORY: 1. Crohn disease status post colectomy with ileostomy and ileostomy revision in 11/2016. She has previously been on Humira. She is currently not taking any medications for Crohn's, although Entyvio was approved for her. 2. Oophorectomy. 3. Abscess. 4. Ovarian cyst. 5. Pelvic inflammatory disease. 6. Opiate use. REVIEW OF SYSTEMS: A 13-point review of systems was done. It is positive as per HPI and otherwise negative. ALLERGIES: 1. CONTRAST. 2. CLINDAMYCIN. 3. PROMETHAZINE. 4. AMOXICILLIN. 5. FENTANYL. 6. METOCLOPRAMIDE. 7. ZOFRAN. HOME MEDICATIONS: 1. Biotin. 2. Bupropion. 3. Buspirone. 4. Clonazepam. 5. Benadryl. 6. Zofran. 7. Protonix. 8. Pyridium. 9. Simethicone. FAMILY MEDICAL HISTORY: Significant for cancer. PHYSICAL EXAMINATION: VITAL SIGNS: Temperature is 98.5, blood pressure is 121/78, heart rate 102. GENERAL: She is a well-developed, well-nourished female who is uncomfortable and teary eyed. HEENT: Oropharynx is clear. CARDIOVASCULAR: S1, S2. LUNGS: Clear. ABDOMEN: Has hyperactive bowel sounds. She does have well-healed surgical scars in her lower abdomen. There is an ostomy in her left lower quadrant that has stool in the bag. The stool is green. She is diffusely tender. EXTREMITIES: No edema. NEUROLOGIC: She is awake, alert and oriented x 3. LABORATORY DATA: White blood cell count of 7 with a hemoglobin of 14, MCV of 92, platelets are at 222. Coags are normal. Chemistries are unrevealing with normal liver function tests and a normal BMP. UA shows small leukocyte esterase and negative nitrites. IMAGING STUDIES: CT of the abdomen and pelvis from 08/18/2017 shows some wall thickening of the small bowel in the pelvis that might be secondary to enteritis. There is also some nonspecific ____ fluid in the pelvis. There is an abnormal density of her left kidney with an exophytic lesion arising from the superior left kidney. ASSESSMENT AND PLAN: 1. Crohn disease: She currently is not taking any medication for Crohn disease. Her CT raises a question of some enteritis. At this time, I will check a CRP. I would like to start her on some steroids as this has helped her in the past. I have discussed the case with Infectious Disease and they have agreed to consultation. They have asked me to hold the steroids until they can do their evaluation. I do think that she is going to need long-term management for her Crohn disease. She states that she had seen Dr. Kong at ; however, she left. She has asked me if I can refer her to a Crohn's specialist. I have given her the name of Vibha Armas over at [facility] on the [address]. Her is currently emailing their office now to make an appointment. In-house, I think, that we can certainly give her some steroids and try to alleviate any inflammatory process. 2.: Urinary tract infection: She reports that these are chronic and she has urgency and hesitancy of her urine. Again, per her description, antibiotics have not been working for her. I have asked Infectious Disease to assist in this evaluation. 3. Left kidney lesion on CT: I will go ahead and order a sonogram of her left kidney and see if we can elucidate what this might be. Thank you for allowing me to participate in the care of this patient. SHENG DURHAM MD DR: DALE/ismael JOB#: [id number] / [id number] LELAND Waite Hillary MD PROPECK, SCOTT MD REUSCH, URSULA MD
--- NOTE | 2017-08-19 22:23 | CONS ---
DATE OF CONSULTATION: 08/19/2017 REQUESTING PHYSICIAN: Dr. Banerjee. REASON FOR CONSULTATION: Recurrent urinary tract infection. HISTORY OF PRESENT ILLNESS: This patient is a 37-year-old female who presented with a 3-day duration of worsening abdominal pain and bloating, difficulty urinating associated with nausea and vomiting. She has a history of Crohn disease status post colectomy with ileostomy as well as revision of the ileostomy from right lower quadrant to left in 11/2016. She has had multiple hospitalizations between [facility] and [facility] and has been on Cipro and metronidazole off and on with exacerbation of disease. A Ingram catheter was placed with 400 mL drained. A urinalysis was unremarkable for infection. She complains of quite a bit of lower abdominal pressure with needing to strain to urinate, and as such notices the stoma protruding outward. Denies fevers, chills or body aches. PAST MEDICAL HISTORY: Crohn disease, gastroesophageal reflux disease, pelvic inflammatory disease, depression, anxiety. The patient denies biologic/immunosuppressive therapy. PAST SURGICAL HISTORY: Colectomy with ileostomy as well as revision of ileostomy from right lower quadrant to left 11/2016, appendectomy, cholecystectomy, oophorectomy, salpingectomy. SOCIAL HISTORY: The patient lives at home. FAMILY HISTORY: Positive for diabetes mellitus, cardiovascular disease, pulmonary embolism and cancer. ALLERGIES: LISTED. IODINATED CONTRAST, ORAL AND IV DYE. AMOXICILLIN IS LISTED; HOWEVER, THE PATIENT SAYS SHE WAS TAKING IT ALONG WITH ANOTHER MEDICATION THAT CAUSED HIVES. SHE HAS SINCE TAKEN AMOXICILLIN WITHOUT PROBLEMS. CLINDAMYCIN, FENTANYL, METOCLOPRAMIDE, ONDANSETRON AND PROMETHAZINE. MEDICATIONS: Reviewed on JAN. Currently, not on any antibiotics. REVIEW OF SYSTEMS: As per HPI, otherwise all other review of systems are negative. PHYSICAL EXAMINATION: GENERAL: female, propped up in bed, in no apparent distress. VITAL SIGNS: Afebrile. Stable. HEENT: Pupils equally round and reactive. Normal conjunctivae. Oral mucosa is pink and moist. NECK: Supple. LUNGS: Clear. HEART: Normal S1, S2. ABDOMEN: Distended. Bowel sounds active, soft, nontender to light palpation. GENITOURINARY: Ingram in place. EXTREMITIES: No gross edema or cyanosis. SKIN: Without rash. A few scattered bruises noted. NEUROLOGIC: Alert and oriented x 3. LABORATORY DATA: WBC 7.0, hemoglobin 14.0, platelet count 222,000. Creatinine 1.0, BUN 11, electrolytes are unremarkable. Lipase 390, albumin 4.5. Creatinine kinase 75, total bilirubin 0.6, AST 27, ALT 54. Urine toxicology is positive for opiates and benzodiazepines. Urinalysis per HPI. Urine culture pending. IMAGING STUDIES: Abdominal/pelvic CT revealed wall thickening of small bowel in the pelvis, may be due to enteritis. A small quantity of nonspecific dependent free fluid in the pelvis. Possible hemorrhagic or proteinaceous cyst of left kidney noted. IMPRESSION: 1. Crohn disease. 2. Urinary retention, status post Ingram placement. 3. Gastroesophageal reflux disease. 4. Nausea and vomiting. PLAN: From ID standpoint, steroids may be started. No need for antibiotics. Thank you, Dr. Banerjee for asking us to participate in this patient's care. Should you have further questions or concerns, please call. The patient seen and examined and plan of care implemented by Dr. Tree Celeste. TREE CELESTE MD DR: JUAN PABLO/ismael JOB#: [id number] / [id number]
[2017-08-20] MEDS: HYDROmorphone 2 MG/ML VIAL IV PRN ×7 (00:26→20:42)
[2017-08-20] MEDS: MORPHINE SULFATE 2 MG/ML DISP.SYRIN. IV PRN ×4 (02:29→22:51)
[2017-08-20] MEDS: ONDANSETRON PF 4 MG/2 ML VIAL. IV PRN ×4 (02:29→20:41)
[2017-08-20] MEDS: diphenhydrAMINE 50 MG/ML VIAL IVP PRN ×5 (02:30→20:42)
[2017-08-20 03:41] VITALS: BP 122/80
[2017-08-20] MEDS: HYDROCORTISONE SOD SUCC/PF 100 MG/2 ML VIAL. IV SCH ×3 (05:11→20:42)
[2017-08-20 07:00] VITALS: BP 132/84
--- NOTE | 2017-08-20 08:26 | RAD ---
Renal ultrasound, 08/19/2017: History: UTI urinary tract abnormality, renal mass The right kidney measures 11.9 cm in length while the left kidney measures 11.8 cm. There is no evidence of hydronephrosis. No right renal mass is seen. On the left, there is a 1.7 cm nodule arising from the upper pole of the kidney. It demonstrates low level internal echoes. There is faint posterior acoustic shadowing. This is probably a complicated cyst. A solid mass cannot be entirely excluded. The recent CT study demonstrated a 14 mm nodule in the central aspect of the left kidney. It demonstrated a high internal CT number of approximately 100 Hounsfield units. It is not clearly visualized sonographically. The CT features suggest that this is a hemorrhagic or proteinaceous cyst. The CT study also demonstrated a 13 mm nodule along the lateral margin of the left kidney. There is a clear fat planes this nodule from the kidney. This is probably a small accessory splenule. It was also visible sonographically. Note is also made of a 3.8 cm splenic cyst. The bladder is decompressed by a Ingram catheter and not adequately delineated. IMPRESSION: 1. Probable small complicated renal cysts as described above. CT or MR follow-up is suggested to establish stability.. 2. Splenic cyst.
[2017-08-20] MEDS: buPROPion XL 150 MG TAB.ER.24H. PO SCH ×2 (09:00→20:18)
[2017-08-20] MEDS: busPIRone 5 MG TABLET. PO SCH ×2 (09:00→20:18)
[2017-08-20] MEDS: clonazePAM 1 MG TABLET PO SCH ×3 (09:00→20:18)
[2017-08-20] MEDS: FAMOTIDINE 20 MG/2 ML VIAL IVP SCH ×2 (10:34→20:42)
[2017-08-20 11:00] VITALS: BP 146/98
[2017-08-20 12:33] LABS: BASO # 0.1 x10^3/uL (0.0-0.2); BASO % 1 % (0-3); EOS % 0 % (0-3); HEMATOCRIT 39.6 % (36.0-47.0); HEMOGLOBIN 12.9 g/dL (12.0-15.5); LYMPH # 1.3 x10^3/uL (1.0-4.8); LYMPH % 10 % (24-48); MEAN CORPUSCULAR HEMOGLOBIN 30 pg (25-35); MEAN CORPUSCULAR HGB CONC 33 g/dL (31-37); MEAN CORPUSCULAR VOLUME 92 fL (79-100); MONO % 4 % (0-9); NEUT % 85 % (31-73); PLATELET COUNT 228 x10^3/uL (140-400); RED BLOOD COUNT 4.31 x10^6/uL (3.50-5.40); RED CELL DISTRIBUTION WIDTH 12.6 % (11.5-14.5); WHITE BLOOD COUNT 13.1 x10^3/uL (4.0-11.0)
--- NOTE | 2017-08-20 12:51 | PDOC ---
Subjective: Subjective: still with n/v/abd pain Objective: Vital Signs: Vital Signs Date Time Temp Pulse Resp B/P (MAP) Pulse Ox O2 Delivery O2 Flow Rate FiO2 08/20/17 11:00 98.1 103 18 146/98 (114) 96 Room Air 98.1 Labs: Laboratory Tests Test 08/20/17 12:20 White Blood Count 13.1 x10^3/uL (4.0-11.0) Red Blood Count 4.31 x10^6/uL (3.50-5.40) Hemoglobin 12.9 g/dL (12.0-15.5) Hematocrit 39.6 % (36.0-47.0) Mean Corpuscular Volume 92 fL (79-100) Mean Corpuscular Hemoglobin 30 pg (25-35) Mean Corpuscular Hemoglobin Concent 33 g/dL (31-37) Red Cell Distribution Width 12.6 % (11.5-14.5) Platelet Count 228 x10^3/uL (140-400) Neutrophils (%) (Auto) 85 % (31-73) Lymphocytes (%) (Auto) 10 % (24-48) Monocytes (%) (Auto) 4 % (0-9) Eosinophils (%) (Auto) 0 % (0-3) Basophils (%) (Auto) 1 % (0-3) Neutrophils # (Auto) 11.2 x10^3uL (1.8-7.7) Lymphocytes # (Auto) 1.3 x10^3/uL (1.0-4.8) Monocytes # (Auto) 0.5 x10^3/uL (0.0-1.1) Eosinophils # (Auto) 0.0 x10^3/uL (0.0-0.7) Basophils # (Auto) 0.1 x10^3/uL (0.0-0.2) Physical Exam: Physical Exam: GENERAL: She is a well-developed, well-nourished female who is uncomfortable and teary eyed. HEENT: Oropharynx is clear. CARDIOVASCULAR: S1, S2. LUNGS: Clear. ABDOMEN: Has hyperactive bowel sounds. She does have well-healed surgical scars in her lower abdomen. There is an ostomy in her left lower quadrant that has stool in the bag. The stool is green. She is diffusely tender. EXTREMITIES: No edema. NEUROLOGIC: She is awake, alert and oriented x 3. Assessment & Plan: Assessment : ASSESSMENT AND PLAN: 1. Crohn disease: She currently is not taking any medication for Crohn disease. Her CT raises a question of some enteritis. At this time, I favor check a CRP. On steroids 2.: Urinary tract infection: She reports that these are chronic and she has urgency and hesitancy of her urine. Again, per her description, antibiotics have not been working for her. Per ID, no evidence of UTI 3. Left kidney lesion on CT: Sono with small, complicated renal cyst. Defer to primary for further consult Plan: Cont steroids and prn nausea meds Await other consultants input Problems: SHENG DURHAM MD Aug 20, 2017 12:51
[2017-08-20 14:08] LABS: PLT ESTIMATE ADEQUATE (ADEQUATE); TOXIC GRANULATION SLIGHT
--- NOTE | 2017-08-20 14:56 | PDOC2 ---
CONSULT Date of Consult Date of Consult DATE: 08/20/17 TIME: 14:49 Reason for Consult Reason for Consult: inability to urinate Referring Physician Referring Physician: Tiffanie Identification/Chief Complaint Chief Complaint inability to urinate Problems: Source Source: Chart review, Patient History of Present Illness Reason for Visit: 37 yo F with complicated history related to crohn's. Consult was for feces from vagina, but she does not currently complain of this. Her main c/o is inability to urinate and urination pain. She has been seen by multiple urologists, surgeons, and GI physicians, and is frustrated by a lack of answers. She was recently at [facility] for similar complaints. She is having difficulty drinking. Past Medical History Cardiovascular: No pertinent hx Pulmonary: No pertinent hx CENTRAL NERVOUS SYSTEM: Carpal Tunnel Syndrome GI: Other Heme/Onc: B12 deficiency Psych: No pertinent hx Musculoskeletal: low back pain Past Surgical History Past Surgical History: Appendectomy, Cholecystectomy, Colon Resection Family History Family History: Cancer Social History No Lives: with Family Current Problem List Problem List Problems Medical Problems: (1) Abdominal pain Status: Acute Current Medications Current Medications Current Medications Morphine Sulfate 2 mg PRN Q15MIN PRN IV/SQ PAIN GREATER THAN 3/10 Last administered on 08/18/17 15:38; Start 08/18/17 at 15:30; Stop 08/19/17 at 00:00 ; Status DC Sodium Chloride 1,000 ml @ 1,000 mls/hr Q1H IV Last administered on 08/18/17 15:37; Start 08/18/17 at 15:30; Stop 08/18/17 at 16:29; Status DC Ondansetron HCl (Zofran) 4 mg 1X ONCE IV Last administered on 08/18/17 16:07 ; Start 08/18/17 at 16:15; Stop 08/18/17 at 16:16; Status DC Diphenhydramine HCl (Benadryl) 25 mg 1X ONCE IVP Last administered on 16:07; Start 08/18/17 at 16:15; Stop 08/18/17 at 16:16; Status DC Hydromorphone HCl (Dilaudid) 1 mg PRN Q15MIN PRN IV/SQ PAIN GREATER THAN 3/10 Last administered on 08/18/17 16:08; Start 08/18/17 at 16:00; Stop 08/19/17 at 00:00; Status DC Diphenhydramine HCl (Benadryl) 25 mg 1X ONCE IVP Last administered on 18:31; Start 08/18/17 at 18:30; Stop 08/18/17 at 18:31; Status DC Ondansetron HCl (Zofran) 4 mg 1X ONCE IV Last administered on 08/18/17 18:31 ; Start 08/18/17 at 18:30; Stop 08/18/17 at 18:31; Status DC Ondansetron HCl (Zofran) 4 mg PRN Q8HRS PRN IV NAUSEA/VOMITING Last administered on 08/19/17 14:59; Start 08/18/17 at 18:30; Stop 08/19/17 at 18:29 ; Status DC Diphenhydramine HCl (Benadryl) 25 mg PRN Q6HRS PRN PO nausea Last administered on 08/19/17 00:49; Start 08/18/17 at 18:30 Hydromorphone HCl (Dilaudid) 0.5 mg PRN Q6HRS PRN IV pain Last administered on 08/18/17 18:34; Start 08/18/17 at 18:30; Stop 08/19/17 at 00:00; Status DC Hydralazine HCl (Apresoline) 10 mg PRN Q4HRS PRN IVP htn; Start 08/18/17 at 19: 00; Status Cancel Hydromorphone HCl (Dilaudid) 2 mg PRN Q3HRS PRN IV PAIN Last administered on 13:50; Start 08/19/17 at 00:00 Clonazepam (KlonoPIN) 0.5 mg PRN BID PRN PO ANXIETY; Start 08/19/17 at 00:45 Clonazepam (KlonoPIN) 1 mg TID PO ; Start 08/19/17 at 09:00 Pantoprazole Sodium (Protonix) 40 mg DAILYAC PO ; Start 08/19/17 at 07:30; Stop 08/19/17 at 14:30; Status DC Bupropion HCl (Wellbutrin Xl) 300 mg BID PO ; Start 08/19/17 at 09:00 Buspirone HCl (Buspar) 15 mg BID PO ; Start 08/19/17 at 09:00 Famotidine (Pepcid) 20 mg BID IVP Last administered on 08/20/17 10:34; Start 08/19/17 at 06:30 Diphenhydramine HCl (Benadryl) 25 mg 1X ONCE IVP Last administered on 06:39; Start 08/19/17 at 06:30; Stop 08/19/17 at 06:31; Status DC Phenazopyridine HCl (Pyridium) 200 mg PRN TID PRN PO URINARY PAIN Last administered on 08/19/17 18:09; Start 08/19/17 at 12:45 Hydrocortisone Sodium Succinate (Solu-CORTEF) 100 mg Q8HRS IV Last administered on 08/20/17 13:49; Start 08/19/17 at 14:00 Diphenhydramine HCl (Benadryl) 25 mg PRN Q6HRS PRN IVP ITCHING Last administered on 08/20/17 11:16; Start 08/19/17 at 14:30 Famotidine (Pepcid) 20 mg QHS IVP ; Start 08/19/17 at 21:00; Stop 08/20/17 at 14 :29; Status DC Acetaminophen (Tylenol) 650 mg PRN Q6HRS PRN PO FEVER; Start 08/19/17 at 14:30 Ondansetron HCl (Zofran) 4 mg PRN Q6HRS PRN IV NAUSEA/VOMITING Last administered on 08/20/17 11:17; Start 08/19/17 at 14:30 Morphine Sulfate 2 mg PRN Q2HR PRN IV PAIN Last administered on 08/20/17 11:17 ; Start 08/19/17 at 14:30 Tramadol HCl (Ultram) 50 mg PRN Q6HRS PRN PO PAIN; Start 08/19/17 at 14:30 Hydralazine HCl (Apresoline) 10 mg PRN Q4HRS PRN IVP ELEVATED BP, SEE COMMENTS ; Start 08/19/17 at 14:30 Docusate Sodium (Colace) 100 mg PRN DAILY PRN PO CONSTIPATION; Start 08/19/17 at 14:30 Active Scripts Active Reported Benadryl (Diphenhydramine Hcl) 25 Mg Capsule 25 Mg PO PRN Q4-6HRS PRN Zofran Odt (Ondansetron) 4 Mg Tab.rapdis 4 Mg PO BID PRN Biotin 10,000 Mcg Tab.rapdis 10,000 Mcg PO DAILY Simethicone 125 Mg Capsule 125 Mg PO DAILY Protonix (Pantoprazole Sodium) 40 Mg Tablet.dr 40 Mg PO DAILY Clonazepam 0.5 Mg Tablet 1 Tab PO BID PRN Buspirone Hcl 15 Mg Tablet 15 Mg PO BID Pyridium (Phenazopyridine Hcl) 200 Mg Tablet 200 Mg PO TID PRN Pantoprazole Sodium 40 Mg Tablet.dr 40 Mg PO DAILY Wellbutrin Xl (Bupropion Hcl) 300 Mg Tab.er.24h 300 Mg PO BID Clonazepam 1 Mg Tablet 1 Tab PO TID Allergies Allergies: Coded Allergies: Iodinated Contrast- Oral and IV Dye (Verified Allergy, Severe, Hives, 08/20) clindamycin (Verified Allergy, Severe, Hives, feeling of thickening of the throat, 08/25/14) promethazine (Verified Allergy, Severe, ANAPHALAXIS, 08/23/14) amoxicillin (Unverified Allergy, Intermediate, Cephalosporins OK, 10/09/14 ) fentanyl (Verified Allergy, Intermediate, 08/04/14) metoclopramide (Verified Allergy, Intermediate, 08/04/14) ondansetron (Verified Allergy, Intermediate, takes zofran odt at home, 08/18/17) ROS Gastrointestinal: Yes Nausea, Yes Vomiting, Yes Abdominal Pain Genitourinary: YES Dysuria, YES Pain Physical Exam General: Alert, Oriented X3, Cooperative, mild distress HEENT: Atraumatic, EOMI Lungs: Normal air movement Abdomen: Soft, Other (mild TTP diffusely, multiple surgical scars, ileostomy in LLQ, fxn, matos in place) Psych/Mental Status: Other (teary eyed and frustrated talking about her disease ) Vitals VITALS Vital Signs Date Time Temp Pulse Resp B/P (MAP) Pulse Ox O2 Delivery O2 Flow Rate FiO2 08/20/17 11:00 98.1 103 18 146/98 (114) 96 Room Air 98.1 Labs Labs Laboratory Tests Test 08/18/17 15:25 08/18/17 16:18 08/18/17 16:34 08/19/17 05:05 White Blood Count 9.7 x10^3/uL (4.0-11.0) 7.0 x10^3/uL (4.0-11.0) Red Blood Count 4.97 x10^6/uL (3.50-5.40) 4.59 x10^6/uL (3.50-5.40) Hemoglobin 15.2 g/dL (12.0-15.5) 14.0 g/dL (12.0-15.5) Hematocrit 45.7 % (36.0-47.0) 42.1 % (36.0-47.0) Mean Corpuscular Volume 92 fL (79-100) 92 fL (79-100) Mean Corpuscular Hemoglobin 31 pg (25-35) 30 pg (25-35) Mean Corpuscular Hemoglobin Concent 33 g/dL (31-37) 33 g/dL (31-37) Red Cell Distribution Width 13.0 % (11.5-14.5) 13.0 % (11.5-14.5) Platelet Count 276 x10^3/uL (140-400) 222 x10^3/uL (140-400) Neutrophils (%) (Auto) 63 % (31-73) 44 % (31-73) Lymphocytes (%) (Auto) 27 % (24-48) 43 % (24-48) Monocytes (%) (Auto) 8 % (0-9) 9 % (0-9) Eosinophils (%) (Auto) 1 % (0-3) 4 % (0-3) Basophils (%) (Auto) 1 % (0-3) 1 % (0-3) Neutrophils # (Auto) 6.1 x10^3uL (1.8-7.7) 3.1 x10^3uL (1.8-7.7) Lymphocytes # (Auto) 2.6 x10^3/uL (1.0-4.8) 3.0 x10^3/uL (1.0-4.8) Monocytes # (Auto) 0.8 x10^3/uL (0.0-1.1) 0.6 x10^3/uL (0.0-1.1) Eosinophils # (Auto) 0.1 x10^3/uL (0.0-0.7) 0.2 x10^3/uL (0.0-0.7) Basophils # (Auto) 0.1 x10^3/uL (0.0-0.2) 0.0 x10^3/uL (0.0-0.2) Sodium Level 137 mmol/L (136-145) 138 mmol/L (136-145) Potassium Level 4.4 mmol/L (3.5-5.1) 4.1 mmol/L (3.5-5.1) Chloride Level 100 mmol/L (98-107) 102 mmol/L (98-107) Carbon Dioxide Level 25 mmol/L (21-32) 25 mmol/L (21-32) Anion Gap 12 (6-14) 11 (6-14) Blood Urea Nitrogen 15 mg/dL (7-20) 11 mg/dL (7-20) Creatinine 1.0 mg/dL (0.6-1.0) 1.0 mg/dL (0.6-1.0) Estimated GFR (Cockcroft-Gault) 62.4 62.4 Glucose Level 103 mg/dL (70-99) 138 mg/dL (70-99) Calcium Level 9.7 mg/dL (8.5-10.1) 9.2 mg/dL (8.5-10.1) Total Bilirubin 0.6 mg/dL (0.2-1.0) Direct Bilirubin 0.1 mg/dL (0.0-0.2) Aspartate Amino Transf (AST/SGOT) 27 U/L (15-37) Alanine Aminotransferase (ALT/SGPT) 54 U/L (14-59) Alkaline Phosphatase 106 U/L (46-116) Creatine Kinase 75 U/L (26-192) Creatine Kinase MB (Mass) 0.5 ng/mL (0.0-3.6) Creatine Kinase MB Relative Index 0.7 % (0-4) Total Protein 8.2 g/dL (6.4-8.2) Albumin 4.5 g/dL (3.4-5.0) Lipase 390 U/L (73-393) Prothrombin Time 12.9 SEC (11.7-14.0) Prothromb Time International Ratio 1.0 (0.8-1.1) Activated Partial Thromboplast Time 30 SEC (24-38) Urine Collection Type U cath Urine Color Yellow Urine Clarity Clear Urine pH 6.0 Urine Specific [place] 1.025 Urine Protein 100 mg/dL (NEG-TRACE) Urine Glucose (UA) Negative mg/dL (NEG) Urine Ketones (Stick) Negative mg/dL (NEG) Urine Blood Negative (NEG) Urine Nitrite Negative (NEG) Urine Bilirubin Negative (NEG) Urine Urobilinogen Dipstick 0.2 mg/dL (0.2 mg/dL) Urine Leukocyte Esterase Small (NEG) Urine RBC 0 /HPF (0-2) Urine WBC 1-4 /HPF (0-4) Urine Bacteria 0 /HPF (0-FEW) Urine Mucus Mod /LPF Urine Opiates Screen Pos (NEG) Urine Methadone Screen Neg (NEG) Urine Barbiturates Neg (NEG) Urine Phencyclidine Screen Neg (NEG) Urine Amphetamine/Methamphetamine Neg (NEG) Urine Benzodiazepines Screen Pos (NEG) Urine Cocaine Screen Neg (NEG) Urine Cannabinoids Screen Neg (NEG) Urine Ethyl Alcohol Neg (NEG) Test 08/20/17 12:20 White Blood Count 13.1 x10^3/uL (4.0-11.0) Red Blood Count 4.31 x10^6/uL (3.50-5.40) Hemoglobin 12.9 g/dL (12.0-15.5) Hematocrit 39.6 % (36.0-47.0) Mean Corpuscular Volume 92 fL (79-100) Mean Corpuscular Hemoglobin 30 pg (25-35) Mean Corpuscular Hemoglobin Concent 33 g/dL (31-37) Red Cell Distribution Width 12.6 % (11.5-14.5) Platelet Count 228 x10^3/uL (140-400) Neutrophils (%) (Auto) 85 % (31-73) Lymphocytes (%) (Auto) 10 % (24-48) Monocytes (%) (Auto) 4 % (0-9) Eosinophils (%) (Auto) 0 % (0-3) Basophils (%) (Auto) 1 % (0-3) Neutrophils # (Auto) 11.2 x10^3uL (1.8-7.7) Lymphocytes # (Auto) 1.3 x10^3/uL (1.0-4.8) Monocytes # (Auto) 0.5 x10^3/uL (0.0-1.1) Eosinophils # (Auto) 0.0 x10^3/uL (0.0-0.7) Basophils # (Auto) 0.1 x10^3/uL (0.0-0.2) Segmented Neutrophils % 82 % (35-66) Band Neutrophils % 3 % (0-9) Lymphocytes % 8 % (24-48) Monocytes % 7 % (0-10) Toxic Granulation Slight Platelet Estimate Adequate (ADEQUATE) Laboratory Tests Test 08/20/17 12:20 White Blood Count 13.1 x10^3/uL (4.0-11.0) Red Blood Count 4.31 x10^6/uL (3.50-5.40) Hemoglobin 12.9 g/dL (12.0-15.5) Hematocrit 39.6 % (36.0-47.0) Mean Corpuscular Volume 92 fL (79-100) Mean Corpuscular Hemoglobin 30 pg (25-35) Mean Corpuscular Hemoglobin Concent 33 g/dL (31-37) Red Cell Distribution Width 12.6 % (11.5-14.5) Platelet Count 228 x10^3/uL (140-400) Neutrophils (%) (Auto) 85 % (31-73) Lymphocytes (%) (Auto) 10 % (24-48) Monocytes (%) (Auto) 4 % (0-9) Eosinophils (%) (Auto) 0 % (0-3) Basophils (%) (Auto) 1 % (0-3) Neutrophils # (Auto) 11.2 x10^3uL (1.8-7.7) Lymphocytes # (Auto) 1.3 x10^3/uL (1.0-4.8) Monocytes # (Auto) 0.5 x10^3/uL (0.0-1.1) Eosinophils # (Auto) 0.0 x10^3/uL (0.0-0.7) Basophils # (Auto) 0.1 x10^3/uL (0.0-0.2) Segmented Neutrophils % 82 % (35-66) Band Neutrophils % 3 % (0-9) Lymphocytes % 8 % (24-48) Monocytes % 7 % (0-10) Toxic Granulation Slight Platelet Estimate Adequate (ADEQUATE) Images Images concern for enteritis Assessment/Plan Assessment/Plan enteritis, crohn's, recurrent UTI would recommend care under a team approach, and a urologist would be integral. We discussed this extensively. She would have a hostile abdomen, and a proper plan in place prior to operative intervention would be important. Will d/w GI in AM. No immediate surgical plans. Thanks for consult! LEEANNE OLVERA MD Aug 20, 2017 14:56
[2017-08-20 15:00] VITALS: BP 150/88
--- NOTE | 2017-08-20 15:12 | PDOC ---
PROGRESS NOTES Chief Complaint Chief Complaint cc: cannot pee urinary retention on matos now possible abnormal urinary tract anatomy with multiple abd sx history chronic crhons dz, now with possible enteritis on CT multiple abd sx for crohns dz and has ileostomy now status post colectomy with ileostomy secondary to Crohn's h/o ovarian cysts, PID, status post left oophorectomy, known chronic left kidney cyst no UTI plan: gi consulted, on steroid now id consult, no abx needed on matos check renal US, told pt may need to transfer to [facility] if no GI intervention done zofran and iv benadryl pain control refused IVF for now, clear liquid diet add pyridium, refuse oxybutinin dvt , gi ppx pt said 2 times feces coming from vagina verified by night nurse, worried about fistula, but daytime nurse had no report. pt require sx consult History of Present Illness History of Present Illness ROS: no fever, chills, sob or chest pain cont having severe nausea with some vomiting c/o lower abd pain, pt has urinary problem for a long time and that is the reason coming here, had a uro appt in Sep. was told to come to [place] or for gi for 2nd opinion, wants to see dr. Burch said ileostomy works ok for her severe nausea, like to take both zofran and benadryl together, saying allergic to zofran ,but ok with benadryl together known chronic left kidney cyst only want clear liquid diet for now, refuse IVF Vitals Vitals Vital Signs Date Time Temp Pulse Resp B/P (MAP) Pulse Ox O2 Delivery O2 Flow Rate FiO2 08/20/17 11:00 98.1 103 18 146/98 (114) 96 Room Air 98.1 Physical Exam General: Alert, Oriented X3, Cooperative, mild distress Heart: Regular rate, Normal S1, Normal S2 Lungs: Clear Abdomen: Soft, Other (mild TTP diffusely, multiple surgical scars, ileostomy in LLQ, fxn, matos in place) Extremities: No clubbing, No cyanosis Skin: No rashes Labs LABS Laboratory Tests Test 08/20/17 12:20 White Blood Count 13.1 x10^3/uL (4.0-11.0) Red Blood Count 4.31 x10^6/uL (3.50-5.40) Hemoglobin 12.9 g/dL (12.0-15.5) Hematocrit 39.6 % (36.0-47.0) Mean Corpuscular Volume 92 fL (79-100) Mean Corpuscular Hemoglobin 30 pg (25-35) Mean Corpuscular Hemoglobin Concent 33 g/dL (31-37) Red Cell Distribution Width 12.6 % (11.5-14.5) Platelet Count 228 x10^3/uL (140-400) Neutrophils (%) (Auto) 85 % (31-73) Lymphocytes (%) (Auto) 10 % (24-48) Monocytes (%) (Auto) 4 % (0-9) Eosinophils (%) (Auto) 0 % (0-3) Basophils (%) (Auto) 1 % (0-3) Neutrophils # (Auto) 11.2 x10^3uL (1.8-7.7) Lymphocytes # (Auto) 1.3 x10^3/uL (1.0-4.8) Monocytes # (Auto) 0.5 x10^3/uL (0.0-1.1) Eosinophils # (Auto) 0.0 x10^3/uL (0.0-0.7) Basophils # (Auto) 0.1 x10^3/uL (0.0-0.2) Segmented Neutrophils % 82 % (35-66) Band Neutrophils % 3 % (0-9) Lymphocytes % 8 % (24-48) Monocytes % 7 % (0-10) Toxic Granulation Slight Platelet Estimate Adequate (ADEQUATE) Assessment and Plan Assessmemt and Plan Problems Medical Problems: (1) Abdominal pain Status: Acute Problems: Comment Review of Relevant I have reviewed the following items kathy (where applicable) has been applied. Labs Laboratory Tests Test 08/18/17 15:25 08/18/17 16:18 08/18/17 16:34 08/19/17 05:05 White Blood Count 9.7 x10^3/uL (4.0-11.0) 7.0 x10^3/uL (4.0-11.0) Red Blood Count 4.97 x10^6/uL (3.50-5.40) 4.59 x10^6/uL (3.50-5.40) Hemoglobin 15.2 g/dL (12.0-15.5) 14.0 g/dL (12.0-15.5) Hematocrit 45.7 % (36.0-47.0) 42.1 % (36.0-47.0) Mean Corpuscular Volume 92 fL (79-100) 92 fL (79-100) Mean Corpuscular Hemoglobin 31 pg (25-35) 30 pg (25-35) Mean Corpuscular Hemoglobin Concent 33 g/dL (31-37) 33 g/dL (31-37) Red Cell Distribution Width 13.0 % (11.5-14.5) 13.0 % (11.5-14.5) Platelet Count 276 x10^3/uL (140-400) 222 x10^3/uL (140-400) Neutrophils (%) (Auto) 63 % (31-73) 44 % (31-73) Lymphocytes (%) (Auto) 27 % (24-48) 43 % (24-48) Monocytes (%) (Auto) 8 % (0-9) 9 % (0-9) Eosinophils (%) (Auto) 1 % (0-3) 4 % (0-3) Basophils (%) (Auto) 1 % (0-3) 1 % (0-3) Neutrophils # (Auto) 6.1 x10^3uL (1.8-7.7) 3.1 x10^3uL (1.8-7.7) Lymphocytes # (Auto) 2.6 x10^3/uL (1.0-4.8) 3.0 x10^3/uL (1.0-4.8) Monocytes # (Auto) 0.8 x10^3/uL (0.0-1.1) 0.6 x10^3/uL (0.0-1.1) Eosinophils # (Auto) 0.1 x10^3/uL (0.0-0.7) 0.2 x10^3/uL (0.0-0.7) Basophils # (Auto) 0.1 x10^3/uL (0.0-0.2) 0.0 x10^3/uL (0.0-0.2) Sodium Level 137 mmol/L (136-145) 138 mmol/L (136-145) Potassium Level 4.4 mmol/L (3.5-5.1) 4.1 mmol/L (3.5-5.1) Chloride Level 100 mmol/L (98-107) 102 mmol/L (98-107) Carbon Dioxide Level 25 mmol/L (21-32) 25 mmol/L (21-32) Anion Gap 12 (6-14) 11 (6-14) Blood Urea Nitrogen 15 mg/dL (7-20) 11 mg/dL (7-20) Creatinine 1.0 mg/dL (0.6-1.0) 1.0 mg/dL (0.6-1.0) Estimated GFR (Cockcroft-Gault) 62.4 62.4 Glucose Level 103 mg/dL (70-99) 138 mg/dL (70-99) Calcium Level 9.7 mg/dL (8.5-10.1) 9.2 mg/dL (8.5-10.1) Total Bilirubin 0.6 mg/dL (0.2-1.0) Direct Bilirubin 0.1 mg/dL (0.0-0.2) Aspartate Amino Transf (AST/SGOT) 27 U/L (15-37) Alanine Aminotransferase (ALT/SGPT) 54 U/L (14-59) Alkaline Phosphatase 106 U/L (46-116) Creatine Kinase 75 U/L (26-192) Creatine Kinase MB (Mass) 0.5 ng/mL (0.0-3.6) Creatine Kinase MB Relative Index 0.7 % (0-4) Total Protein 8.2 g/dL (6.4-8.2) Albumin 4.5 g/dL (3.4-5.0) Lipase 390 U/L (73-393) Prothrombin Time 12.9 SEC (11.7-14.0) Prothromb Time International Ratio 1.0 (0.8-1.1) Activated Partial Thromboplast Time 30 SEC (24-38) Urine Collection Type U cath Urine Color Yellow Urine Clarity Clear Urine pH 6.0 Urine Specific [place] 1.025 Urine Protein 100 mg/dL (NEG-TRACE) Urine Glucose (UA) Negative mg/dL (NEG) Urine Ketones (Stick) Negative mg/dL (NEG) Urine Blood Negative (NEG) Urine Nitrite Negative (NEG) Urine Bilirubin Negative (NEG) Urine Urobilinogen Dipstick 0.2 mg/dL (0.2 mg/dL) Urine Leukocyte Esterase Small (NEG) Urine RBC 0 /HPF (0-2) Urine WBC 1-4 /HPF (0-4) Urine Bacteria 0 /HPF (0-FEW) Urine Mucus Mod /LPF Urine Opiates Screen Pos (NEG) Urine Methadone Screen Neg (NEG) Urine Barbiturates Neg (NEG) Urine Phencyclidine Screen Neg (NEG) Urine Amphetamine/Methamphetamine Neg (NEG) Urine Benzodiazepines Screen Pos (NEG) Urine Cocaine Screen Neg (NEG) Urine Cannabinoids Screen Neg (NEG) Urine Ethyl Alcohol Neg (NEG) Test 08/20/17 12:20 White Blood Count 13.1 x10^3/uL (4.0-11.0) Red Blood Count 4.31 x10^6/uL (3.50-5.40) Hemoglobin 12.9 g/dL (12.0-15.5) Hematocrit 39.6 % (36.0-47.0) Mean Corpuscular Volume 92 fL (79-100) Mean Corpuscular Hemoglobin 30 pg (25-35) Mean Corpuscular Hemoglobin Concent 33 g/dL (31-37) Red Cell Distribution Width 12.6 % (11.5-14.5) Platelet Count 228 x10^3/uL (140-400) Neutrophils (%) (Auto) 85 % (31-73) Lymphocytes (%) (Auto) 10 % (24-48) Monocytes (%) (Auto) 4 % (0-9) Eosinophils (%) (Auto) 0 % (0-3) Basophils (%) (Auto) 1 % (0-3) Neutrophils # (Auto) 11.2 x10^3uL (1.8-7.7) Lymphocytes # (Auto) 1.3 x10^3/uL (1.0-4.8) Monocytes # (Auto) 0.5 x10^3/uL (0.0-1.1) Eosinophils # (Auto) 0.0 x10^3/uL (0.0-0.7) Basophils # (Auto) 0.1 x10^3/uL (0.0-0.2) Segmented Neutrophils % 82 % (35-66) Band Neutrophils % 3 % (0-9) Lymphocytes % 8 % (24-48) Monocytes % 7 % (0-10) Toxic Granulation Slight Platelet Estimate Adequate (ADEQUATE) Laboratory Tests Test 08/20/17 12:20 White Blood Count 13.1 x10^3/uL (4.0-11.0) Red Blood Count 4.31 x10^6/uL (3.50-5.40) Hemoglobin 12.9 g/dL (12.0-15.5) Hematocrit 39.6 % (36.0-47.0) Mean Corpuscular Volume 92 fL (79-100) Mean Corpuscular Hemoglobin 30 pg (25-35) Mean Corpuscular Hemoglobin Concent 33 g/dL (31-37) Red Cell Distribution Width 12.6 % (11.5-14.5) Platelet Count 228 x10^3/uL (140-400) Neutrophils (%) (Auto) 85 % (31-73) Lymphocytes (%) (Auto) 10 % (24-48) Monocytes (%) (Auto) 4 % (0-9) Eosinophils (%) (Auto) 0 % (0-3) Basophils (%) (Auto) 1 % (0-3) Neutrophils # (Auto) 11.2 x10^3uL (1.8-7.7) Lymphocytes # (Auto) 1.3 x10^3/uL (1.0-4.8) Monocytes # (Auto) 0.5 x10^3/uL (0.0-1.1) Eosinophils # (Auto) 0.0 x10^3/uL (0.0-0.7) Basophils # (Auto) 0.1 x10^3/uL (0.0-0.2) Segmented Neutrophils % 82 % (35-66) Band Neutrophils % 3 % (0-9) Lymphocytes % 8 % (24-48) Monocytes % 7 % (0-10) Toxic Granulation Slight Platelet Estimate Adequate (ADEQUATE) Microbiology 08/18/17 Urine Culture - Final, Complete 08/18/17 Urine Culture Result 1 (LIONEL) - Final, Complete Medications Current Medications Morphine Sulfate 2 mg PRN Q15MIN PRN IV/SQ PAIN GREATER THAN 3/10 Last administered on 08/18/17t 15:38; Start 08/18/17 at 15:30; Stop 08/19/17 at 00:00 ; Status DC Sodium Chloride 1,000 ml @ 1,000 mls/hr Q1H IV Last administered on 08/18/17 15:37; Start 08/18/17 at 15:30; Stop 08/18/17 at 16:29; Status DC Ondansetron HCl (Zofran) 4 mg 1X ONCE IV Last administered on 08/18/17 16:07 ; Start 08/18/17 at 16:15; Stop 08/18/17 at 16:16; Status DC Diphenhydramine HCl (Benadryl) 25 mg 1X ONCE IVP Last administered on 16:07; Start 08/18/17 at 16:15; Stop 08/18/17 at 16:16; Status DC Hydromorphone HCl (Dilaudid) 1 mg PRN Q15MIN PRN IV/SQ PAIN GREATER THAN 3/10 Last administered on 08/18/17 16:08; Start 08/18/17 at 16:00; Stop 08/19/17 at 00:00; Status DC Diphenhydramine HCl (Benadryl) 25 mg 1X ONCE IVP Last administered on 18:31; Start 08/18/17 at 18:30; Stop 08/18/17 at 18:31; Status DC Ondansetron HCl (Zofran) 4 mg 1X ONCE IV Last administered on 08/18/17 18:31 ; Start 08/18/17 at 18:30; Stop 08/18/17 at 18:31; Status DC Ondansetron HCl (Zofran) 4 mg PRN Q8HRS PRN IV NAUSEA/VOMITING Last administered on 08/19/17 14:59; Start 08/18/17 at 18:30; Stop 08/19/17 at 18:29 ; Status DC Diphenhydramine HCl (Benadryl) 25 mg PRN Q6HRS PRN PO nausea Last administered on 08/19/17 00:49; Start 08/18/17 at 18:30 Hydromorphone HCl (Dilaudid) 0.5 mg PRN Q6HRS PRN IV pain Last administered on 08/18/17 18:34; Start 08/18/17 at 18:30; Stop 08/19/17 at 00:00; Status DC Hydralazine HCl (Apresoline) 10 mg PRN Q4HRS PRN IVP htn; Start 08/18/17 at 19: 00; Status Cancel Hydromorphone HCl (Dilaudid) 2 mg PRN Q3HRS PRN IV PAIN Last administered on 13:50; Start 08/19/17 at 00:00 Clonazepam (KlonoPIN) 0.5 mg PRN BID PRN PO ANXIETY; Start 08/19/17 at 00:45 Clonazepam (KlonoPIN) 1 mg TID PO ; Start 08/19/17 at 09:00 Pantoprazole Sodium (Protonix) 40 mg DAILYAC PO ; Start 08/19/17 at 07:30; Stop 08/19/17 at 14:30; Status DC Bupropion HCl (Wellbutrin Xl) 300 mg BID PO ; Start 08/19/17 at 09:00 Buspirone HCl (Buspar) 15 mg BID PO ; Start 08/19/17 at 09:00 Famotidine (Pepcid) 20 mg BID IVP Last administered on 08/20/17 10:34; Start 08/19/17 at 06:30 Diphenhydramine HCl (Benadryl) 25 mg 1X ONCE IVP Last administered on 06:39; Start 08/19/17 at 06:30; Stop 08/19/17 at 06:31; Status DC Phenazopyridine HCl (Pyridium) 200 mg PRN TID PRN PO URINARY PAIN Last administered on 08/19/17 18:09; Start 08/19/17 at 12:45 Hydrocortisone Sodium Succinate (Solu-CORTEF) 100 mg Q8HRS IV Last administered on 08/20/17 13:49; Start 08/19/17 at 14:00 Diphenhydramine HCl (Benadryl) 25 mg PRN Q6HRS PRN IVP ITCHING Last administered on 08/20/17 11:16; Start 08/19/17 at 14:30 Famotidine (Pepcid) 20 mg QHS IVP ; Start 08/19/17 at 21:00; Stop 08/20/17 at 14 :29; Status DC Acetaminophen (Tylenol) 650 mg PRN Q6HRS PRN PO FEVER; Start 08/19/17 at 14:30 Ondansetron HCl (Zofran) 4 mg PRN Q6HRS PRN IV NAUSEA/VOMITING Last administered on 08/20/17 11:17; Start 08/19/17 at 14:30 Morphine Sulfate 2 mg PRN Q2HR PRN IV PAIN Last administered on 08/20/17 11:17 ; Start 08/19/17 at 14:30 Tramadol HCl (Ultram) 50 mg PRN Q6HRS PRN PO PAIN; Start 08/19/17 at 14:30 Hydralazine HCl (Apresoline) 10 mg PRN Q4HRS PRN IVP ELEVATED BP, SEE COMMENTS ; Start 08/19/17 at 14:30 Docusate Sodium (Colace) 100 mg PRN DAILY PRN PO CONSTIPATION; Start 08/19/17 at 14:30 Active Scripts Active Reported Benadryl (Diphenhydramine Hcl) 25 Mg Capsule 25 Mg PO PRN Q4-6HRS PRN Zofran Odt (Ondansetron) 4 Mg Tab.rapdis 4 Mg PO BID PRN Biotin 10,000 Mcg Tab.rapdis 10,000 Mcg PO DAILY Simethicone 125 Mg Capsule 125 Mg PO DAILY Protonix (Pantoprazole Sodium) 40 Mg Tablet.dr 40 Mg PO DAILY Clonazepam 0.5 Mg Tablet 1 Tab PO BID PRN Buspirone Hcl 15 Mg Tablet 15 Mg PO BID Pyridium (Phenazopyridine Hcl) 200 Mg Tablet 200 Mg PO TID PRN Pantoprazole Sodium 40 Mg Tablet.dr 40 Mg PO DAILY Wellbutrin Xl (Bupropion Hcl) 300 Mg Tab.er.24h 300 Mg PO BID Clonazepam 1 Mg Tablet 1 Tab PO TID Vitals/I & O Vital Sign - Last 24 Hours 08/19/17 08/19/17 08/19/17 08/19/17 18:08 19:35 20:00 20:21 Temp 98.2 98.2 Pulse 99 Resp 20 18 20 B/P (MAP) 128/87 (101) Pulse Ox 98 98 O2 Delivery Room Air Room Air Room Air Room Air 08/19/17 08/20/17 08/20/17 08/20/17 23:59 00:26 02:29 02:59 Temp 97.5 97.5 Pulse 85 Resp 18 20 20 20 B/P (MAP) 131/90 (104) Pulse Ox 100 98 98 98 O2 Delivery Room Air Room Air Room Air Room Air 08/20/17 08/20/17 08/20/17 08/20/17 03:41 04:07 05:11 05:41 Temp 98.2 98.2 Pulse 90 Resp 18 20 20 20 B/P (MAP) 122/80 (94) Pulse Ox 98 98 98 98 O2 Delivery Room Air Room Air Room Air Room Air 08/20/17 08/20/17 07:00 11:00 Temp 97.5 98.1 97.5 98.1 Pulse 90 103 Resp 18 18 B/P (MAP) 132/84 (100) 146/98 (114) Pulse Ox 96 96 O2 Delivery Room Air Room Air Intake and Output 08/20/17 08/20/17 08/21/17 15:00 23:00 07:00 Intake Total 320 ml Balance 320 ml ROMAN QUESADA MD Aug 20, 2017 15:12
[2017-08-20 19:07] VITALS: BP 121/82
[2017-08-20] MEDS: ZOLPIDEM 5 MG TABLET. PO PRN (22:37)
[2017-08-20] MEDS: PHENAZOPYRIDINE 200 MG TABLET. PO PRN (22:50)
[2017-08-21] MEDS: HYDROmorphone 2 MG/ML VIAL IV PRN ×7 (00:25→20:41)
[2017-08-21 03:00] VITALS: BP 133/71
[2017-08-21] MEDS: ONDANSETRON PF 4 MG/2 ML VIAL. IV PRN ×3 (03:26→18:35)
[2017-08-21] MEDS: diphenhydrAMINE 50 MG/ML VIAL IVP PRN ×5 (03:26→23:04)
[2017-08-21] MEDS: HYDROCORTISONE SOD SUCC/PF 100 MG/2 ML VIAL. IV SCH ×3 (06:25→20:41)
[2017-08-21 07:00] VITALS: BP 127/83
[2017-08-21] MEDS: buPROPion XL 150 MG TAB.ER.24H. PO SCH ×2 (09:00→20:39)
[2017-08-21] MEDS: clonazePAM 1 MG TABLET PO SCH ×3 (09:00→20:39)
[2017-08-21] MEDS: busPIRone 5 MG TABLET. PO SCH ×2 (09:00→20:39)
[2017-08-21] MEDS: FAMOTIDINE 20 MG/2 ML VIAL IVP SCH ×2 (09:42→20:43)
[2017-08-21 11:00] VITALS: BP 146/94
--- NOTE | 2017-08-21 11:19 | PDOC ---
SURGICAL PROGRESS NOTE Subjective Pt with c/o abd pain, and stool from vagina. She d/w Dr. Holt at [facility]. Vital Signs Vital Signs Date Time Temp Pulse Resp B/P (MAP) Pulse Ox O2 Delivery O2 Flow Rate FiO2 08/21/17 10:15 16 Room Air 08/21/17 07:00 81 127/83 (98) 96 08/21/17 03:00 97.4 97.4 General: Alert, Oriented X3, Cooperative, mild distress Abdomen: Soft, Other (TTP ) Labs Laboratory Tests Test 08/20/17 12:20 White Blood Count 13.1 x10^3/uL (4.0-11.0) Red Blood Count 4.31 x10^6/uL (3.50-5.40) Hemoglobin 12.9 g/dL (12.0-15.5) Hematocrit 39.6 % (36.0-47.0) Mean Corpuscular Volume 92 fL (79-100) Mean Corpuscular Hemoglobin 30 pg (25-35) Mean Corpuscular Hemoglobin Concent 33 g/dL (31-37) Red Cell Distribution Width 12.6 % (11.5-14.5) Platelet Count 228 x10^3/uL (140-400) Neutrophils (%) (Auto) 85 % (31-73) Lymphocytes (%) (Auto) 10 % (24-48) Monocytes (%) (Auto) 4 % (0-9) Eosinophils (%) (Auto) 0 % (0-3) Basophils (%) (Auto) 1 % (0-3) Neutrophils # (Auto) 11.2 x10^3uL (1.8-7.7) Lymphocytes # (Auto) 1.3 x10^3/uL (1.0-4.8) Monocytes # (Auto) 0.5 x10^3/uL (0.0-1.1) Eosinophils # (Auto) 0.0 x10^3/uL (0.0-0.7) Basophils # (Auto) 0.1 x10^3/uL (0.0-0.2) Segmented Neutrophils % 82 % (35-66) Band Neutrophils % 3 % (0-9) Lymphocytes % 8 % (24-48) Monocytes % 7 % (0-10) Toxic Granulation Slight Platelet Estimate Adequate (ADEQUATE) Laboratory Tests Test 08/20/17 12:20 White Blood Count 13.1 x10^3/uL (4.0-11.0) Red Blood Count 4.31 x10^6/uL (3.50-5.40) Hemoglobin 12.9 g/dL (12.0-15.5) Hematocrit 39.6 % (36.0-47.0) Mean Corpuscular Volume 92 fL (79-100) Mean Corpuscular Hemoglobin 30 pg (25-35) Mean Corpuscular Hemoglobin Concent 33 g/dL (31-37) Red Cell Distribution Width 12.6 % (11.5-14.5) Platelet Count 228 x10^3/uL (140-400) Neutrophils (%) (Auto) 85 % (31-73) Lymphocytes (%) (Auto) 10 % (24-48) Monocytes (%) (Auto) 4 % (0-9) Eosinophils (%) (Auto) 0 % (0-3) Basophils (%) (Auto) 1 % (0-3) Neutrophils # (Auto) 11.2 x10^3uL (1.8-7.7) Lymphocytes # (Auto) 1.3 x10^3/uL (1.0-4.8) Monocytes # (Auto) 0.5 x10^3/uL (0.0-1.1) Eosinophils # (Auto) 0.0 x10^3/uL (0.0-0.7) Basophils # (Auto) 0.1 x10^3/uL (0.0-0.2) Segmented Neutrophils % 82 % (35-66) Band Neutrophils % 3 % (0-9) Lymphocytes % 8 % (24-48) Monocytes % 7 % (0-10) Toxic Granulation Slight Platelet Estimate Adequate (ADEQUATE) Problem List Problems Medical Problems: (1) Abdominal pain Status: Acute Assessment/Plan abd pain, 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
--- NOTE | 2017-08-21 11:38 | PDOC ---
Subjective: Subjective: Has multiple concerns. Ongoing abd pain and emesis. Passing stool vaginally. Objective: Objective: TOWER ERECTOR HELPER asked to see. Vital Signs: Vital Signs Date Time Temp Pulse Resp B/P (MAP) Pulse Ox O2 Delivery O2 Flow Rate FiO2 08/21/17 10:15 16 Room Air 08/21/17 07:00 81 127/83 (98) 96 08/21/17 03:00 97.4 97.4 Labs: Laboratory Tests Test 08/20/17 12:20 White Blood Count 13.1 x10^3/uL Red Blood Count 4.31 x10^6/uL Hemoglobin 12.9 g/dL Hematocrit 39.6 % Mean Corpuscular Volume 92 fL Mean Corpuscular Hemoglobin 30 pg Mean Corpuscular Hemoglobin Concent 33 g/dL Red Cell Distribution Width 12.6 % Platelet Count 228 x10^3/uL Neutrophils (%) (Auto) 85 % Lymphocytes (%) (Auto) 10 % Monocytes (%) (Auto) 4 % Eosinophils (%) (Auto) 0 % Basophils (%) (Auto) 1 % Neutrophils # (Auto) 11.2 x10^3uL Lymphocytes # (Auto) 1.3 x10^3/uL Monocytes # (Auto) 0.5 x10^3/uL Eosinophils # (Auto) 0.0 x10^3/uL Basophils # (Auto) 0.1 x10^3/uL Segmented Neutrophils % 82 % Band Neutrophils % 3 % Lymphocytes % 8 % Monocytes % 7 % Toxic Granulation Slight Platelet Estimate Adequate PE: GEN: NAD LUNGS: CTAB HEART: RRR ABD: LLQ ostomy, tender NEURO/PSYCH: A & O 3 A/P: Crohn's disease -s/p small bowel resections, colectomy, ostomy in place -abd pain, vomiting; on IV steroids and H2 alejandro -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 Marx) -- Await TOWER ERECTOR HELPER opinion, transfer plans, other per Dr. Burch. MARIA EUGENIA MO Aug 21, 2017 11:38 LEIGHTON BURCH MD Aug 21, 2017 11:42
[2017-08-21] MEDS: MORPHINE SULFATE 4 MG/ML DISP.SYRIN. IV PRN ×3 (11:41→23:03)
[2017-08-21 15:00] VITALS: BP 120/74
--- NOTE | 2017-08-21 15:22 | PDOC ---
PROGRESS NOTES Chief Complaint Chief Complaint cc: cannot pee urinary retention on matos now possible abnormal urinary tract anatomy with multiple abd sx history chronic crhons dz, now with possible enteritis on CT multiple abd sx for crohns dz and has ileostomy now status post colectomy with ileostomy secondary to Crohn's h/o ovarian cysts, PID, status post left oophorectomy, known chronic left kidney cyst no UTI plan: gi consulted, on steroid now id consult, no abx needed on matos check renal US, told pt may need to transfer to [facility] if no GI intervention done zofran and iv benadryl pain control refused IVF for now, clear liquid diet add pyridium, refuse oxybutinin dvt , gi ppx pt said 2 times feces coming from vagina verified by night nurse, worried about fistula, but daytime nurse had no report. pt require sx consult History of Present Illness History of Present Illness I talked by phone to [facility], and discussed transfer request with Dr. 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 or for gi for 2nd opinion, wants to see dr. Burch severe nausea, like to take both zofran and benadryl together wants benadryl Q4 only want clear liquid diet for now, has refused IVF Vitals Vitals Vital Signs Date Time Temp Pulse Resp B/P (MAP) Pulse Ox O2 Delivery O2 Flow Rate FiO2 08/21/17 15:00 97.9 88 18 120/74 (89) 95 Room Air 97.9 Physical Exam General: Alert, Oriented X3, Cooperative, mild distress Heart: Regular rate, Normal S1, Normal S2 Lungs: Clear Abdomen: Soft, Other (TTP ) Extremities: No clubbing, No cyanosis Skin: No rashes Review of Systems Review of Systems no n.v.d Assessment and Plan Assessmemt and Plan Problems Medical Problems: (1) Abdominal pain Status: Acute Problems: Comment Review of Relevant I have reviewed the following items kathy (where applicable) has been applied. Labs Laboratory Tests Test 08/20/17 12:20 White Blood Count 13.1 x10^3/uL (4.0-11.0) Red Blood Count 4.31 x10^6/uL (3.50-5.40) Hemoglobin 12.9 g/dL (12.0-15.5) Hematocrit 39.6 % (36.0-47.0) Mean Corpuscular Volume 92 fL (79-100) Mean Corpuscular Hemoglobin 30 pg (25-35) Mean Corpuscular Hemoglobin Concent 33 g/dL (31-37) Red Cell Distribution Width 12.6 % (11.5-14.5) Platelet Count 228 x10^3/uL (140-400) Neutrophils (%) (Auto) 85 % (31-73) Lymphocytes (%) (Auto) 10 % (24-48) Monocytes (%) (Auto) 4 % (0-9) Eosinophils (%) (Auto) 0 % (0-3) Basophils (%) (Auto) 1 % (0-3) Neutrophils # (Auto) 11.2 x10^3uL (1.8-7.7) Lymphocytes # (Auto) 1.3 x10^3/uL (1.0-4.8) Monocytes # (Auto) 0.5 x10^3/uL (0.0-1.1) Eosinophils # (Auto) 0.0 x10^3/uL (0.0-0.7) Basophils # (Auto) 0.1 x10^3/uL (0.0-0.2) Segmented Neutrophils % 82 % (35-66) Band Neutrophils % 3 % (0-9) Lymphocytes % 8 % (24-48) Monocytes % 7 % (0-10) Toxic Granulation Slight Platelet Estimate Adequate (ADEQUATE) Microbiology 08/18/17 Urine Culture - Final, Complete 08/18/17 Urine Culture Result 1 (LIONEL) - Final, Complete Medications Current Medications Morphine Sulfate 2 mg PRN Q15MIN PRN IV/SQ PAIN GREATER THAN 3/10 Last administered on 08/18/17 15:38; Start 08/18/17 at 15:30; Stop 08/19/17 at 00:00 ; Status DC Sodium Chloride 1,000 ml @ 1,000 mls/hr Q1H IV Last administered on 08/18/17 15:37; Start 08/18/17 at 15:30; Stop 08/18/17 at 16:29; Status DC Ondansetron HCl (Zofran) 4 mg 1X ONCE IV Last administered on 08/18/17 16:07 ; Start 08/18/17 at 16:15; Stop 08/18/17 at 16:16; Status DC Diphenhydramine HCl (Benadryl) 25 mg 1X ONCE IVP Last administered on 16:07; Start 08/18/17 at 16:15; Stop 08/18/17 at 16:16; Status DC Hydromorphone HCl (Dilaudid) 1 mg PRN Q15MIN PRN IV/SQ PAIN GREATER THAN 3/10 Last administered on 08/18/17 16:08; Start 08/18/17 at 16:00; Stop 08/19/17 at 00:00; Status DC Diphenhydramine HCl (Benadryl) 25 mg 1X ONCE IVP Last administered on 18:31; Start 08/18/17 at 18:30; Stop 08/18/17 at 18:31; Status DC Ondansetron HCl (Zofran) 4 mg 1X ONCE IV Last administered on 08/18/17 18:31 ; Start 08/18/17 at 18:30; Stop 08/18/17 at 18:31; Status DC Ondansetron HCl (Zofran) 4 mg PRN Q8HRS PRN IV NAUSEA/VOMITING Last administered on 08/19/17 14:59; Start 08/18/17 at 18:30; Stop 08/19/17 at 18:29 ; Status DC Diphenhydramine HCl (Benadryl) 25 mg PRN Q6HRS PRN PO nausea Last administered on 08/19/17 00:49; Start 08/18/17 at 18:30 Hydromorphone HCl (Dilaudid) 0.5 mg PRN Q6HRS PRN IV pain Last administered on 08/18/17 18:34; Start 08/18/17 at 18:30; Stop 08/19/17 at 00:00; Status DC Hydralazine HCl (Apresoline) 10 mg PRN Q4HRS PRN IVP htn; Start 08/18/17 at 19: 00; Status Cancel Hydromorphone HCl (Dilaudid) 2 mg PRN Q3HRS PRN IV PAIN Last administered on 14:00; Start 08/19/17 at 00:00 Clonazepam (KlonoPIN) 0.5 mg PRN BID PRN PO ANXIETY; Start 08/19/17 at 00:45 Clonazepam (KlonoPIN) 1 mg TID PO ; Start 08/19/17 at 09:00 Pantoprazole Sodium (Protonix) 40 mg DAILYAC PO ; Start 08/19/17 at 07:30; Stop 08/19/17 at 14:30; Status DC Bupropion HCl (Wellbutrin Xl) 300 mg BID PO ; Start 08/19/17 at 09:00 Buspirone HCl (Buspar) 15 mg BID PO ; Start 08/19/17 at 09:00 Famotidine (Pepcid) 20 mg BID IVP Last administered on 08/21/17 09:42; Start 08/19/17 at 06:30 Diphenhydramine HCl (Benadryl) 25 mg 1X ONCE IVP Last administered on 06:39; Start 08/19/17 at 06:30; Stop 08/19/17 at 06:31; Status DC Phenazopyridine HCl (Pyridium) 200 mg PRN TID PRN PO URINARY PAIN Last administered on 08/20/17 22:50; Start 08/19/17 at 12:45 Hydrocortisone Sodium Succinate (Solu-CORTEF) 100 mg Q8HRS IV Last administered on 08/21/17 14:00; Start 08/19/17 at 14:00 Diphenhydramine HCl (Benadryl) 25 mg PRN Q6HRS PRN IVP ITCHING Last administered on 08/21/17 09:45; Start 08/19/17 at 14:30; Stop 08/21/17 at 11:33 ; Status DC Famotidine (Pepcid) 20 mg QHS IVP ; Start 08/19/17 at 21:00; Stop 08/20/17 at 14 :29; Status DC Acetaminophen (Tylenol) 650 mg PRN Q6HRS PRN PO FEVER; Start 08/19/17 at 14:30 Ondansetron HCl (Zofran) 4 mg PRN Q6HRS PRN IV NAUSEA/VOMITING Last administered on 08/21/17 09:44; Start 08/19/17 at 14:30 Morphine Sulfate 2 mg PRN Q2HR PRN IV PAIN Last administered on 08/20/17 22:51 ; Start 08/19/17 at 14:30; Stop 08/21/17 at 11:33; Status DC Tramadol HCl (Ultram) 50 mg PRN Q6HRS PRN PO PAIN; Start 08/19/17 at 14:30 Hydralazine HCl (Apresoline) 10 mg PRN Q4HRS PRN IVP ELEVATED BP, SEE COMMENTS ; Start 08/19/17 at 14:30 Docusate Sodium (Colace) 100 mg PRN DAILY PRN PO CONSTIPATION; Start 08/19/17 at 14:30 Zolpidem Tartrate (Ambien) 5 mg PRN QHS PRN PO INSOMNIA Last administered on 22:37; Start 08/20/17 at 21:00 Diphenhydramine HCl (Benadryl) 25 mg PRN Q4HRS PRN IVP ITCHING Last administered on 08/21/17 14:00; Start 08/21/17 at 11:45 Morphine Sulfate 4 mg PRN Q2HR PRN IV PAIN Last administered on 08/21/17 11:41 ; Start 08/21/17 at 11:45 Active Scripts Active Reported Benadryl (Diphenhydramine Hcl) 25 Mg Capsule 25 Mg PO PRN Q4-6HRS PRN Zofran Odt (Ondansetron) 4 Mg Tab.rapdis 4 Mg PO BID PRN Biotin 10,000 Mcg Tab.rapdis 10,000 Mcg PO DAILY Simethicone 125 Mg Capsule 125 Mg PO DAILY Protonix (Pantoprazole Sodium) 40 Mg Tablet.dr 40 Mg PO DAILY Clonazepam 0.5 Mg Tablet 1 Tab PO BID PRN Buspirone Hcl 15 Mg Tablet 15 Mg PO BID Pyridium (Phenazopyridine Hcl) 200 Mg Tablet 200 Mg PO TID PRN Pantoprazole Sodium 40 Mg Tablet.dr 40 Mg PO DAILY Wellbutrin Xl (Bupropion Hcl) 300 Mg Tab.er.24h 300 Mg PO BID Clonazepam 1 Mg Tablet 1 Tab PO TID Vitals/I & O Vital Sign - Last 24 Hours 08/20/17 08/20/17 08/20/17 08/20/17 19:07 20:00 20:42 22:51 Temp 97.7 97.7 Pulse 94 Resp 16 20 20 B/P (MAP) 121/82 (95) Pulse Ox 96 96 96 O2 Delivery Room Air Room Air Room Air Room Air 08/20/17 08/20/17 08/21/17 08/21/17 23:09 23:21 00:25 03:00 Temp 97.4 97.4 Pulse 87 Resp 20 20 20 18 B/P (MAP) 133/71 (91) Pulse Ox 96 96 97 O2 Delivery Room Air Room Air Room Air 08/21/17 08/21/17 08/21/17 08/21/17 03:27 06:25 06:55 07:00 Pulse 81 Resp 20 20 14 B/P (MAP) 127/83 (98) Pulse Ox 97 97 97 96 O2 Delivery Room Air Room Air Room Air 08/21/17 08/21/17 08/21/17 08/21/17 09:45 11:00 11:41 12:11 Temp 100.2 100.2 Pulse 100 Resp 16 14 16 16 B/P (MAP) 146/94 (111) Pulse Ox 96 O2 Delivery Room Air Room Air Room Air Room Air 08/21/17 08/21/17 08/21/17 14:00 14:30 15:00 Temp 97.9 97.9 Pulse 88 Resp 16 16 18 B/P (MAP) 120/74 (89) Pulse Ox 95 O2 Delivery Room Air Room Air Room Air ABI MAHAN MD Aug 21, 2017 15:22
--- NOTE | 2017-08-21 16:45 | RAD ---
Exam performed: Pelvic sonogram History: Fecal material coming out of the vagina, history of Crohn's disease, hysterectomy. Date of service: 08/21/17. Comparison: None available Technique: Transabdominal and transvaginal. Findings: The uterus and ovaries are not seen and is surgically absent as with the given history. No solid or cystic mass lesions or fluid collections seen. Bowel loops are seen in the pelvic region. Impression: Status post hysterectomy. No definite abnormality seen.
[2017-08-21 19:00] VITALS: BP 136/79
[2017-08-21 23:00] VITALS: BP 136/83
[2017-08-21] MEDS: ZOLPIDEM 5 MG TABLET. PO PRN (23:04)
[2017-08-22] MEDS: HYDROmorphone 2 MG/ML VIAL IV PRN ×4 (00:38→11:56)
[2017-08-22] MEDS: PHENAZOPYRIDINE 200 MG TABLET. PO PRN ×2 (02:21→11:55)
[2017-08-22] MEDS: MORPHINE SULFATE 4 MG/ML DISP.SYRIN. IV PRN ×4 (02:22→14:25)
[2017-08-22 03:00] VITALS: BP 133/85
[2017-08-22] MEDS: ONDANSETRON PF 4 MG/2 ML VIAL. IV PRN ×2 (03:52→10:02)
[2017-08-22] MEDS: diphenhydrAMINE 50 MG/ML VIAL IVP PRN ×3 (03:52→11:55)
[2017-08-22 04:12] LABS: BASO # 0.1 x10^3/uL (0.0-0.2); BASO % 1 % (0-3); EOS % 0 % (0-3); HEMATOCRIT 38.7 % (36.0-47.0); HEMOGLOBIN 12.5 g/dL (12.0-15.5); LYMPH # 1.7 x10^3/uL (1.0-4.8); LYMPH % 12 % (24-48); MEAN CORPUSCULAR HEMOGLOBIN 30 pg (25-35); MEAN CORPUSCULAR HGB CONC 32 g/dL (31-37); MEAN CORPUSCULAR VOLUME 93 fL (79-100); MONO % 5 % (0-9); NEUT % 83 % (31-73); PLATELET COUNT 202 x10^3/uL (140-400); RED BLOOD COUNT 4.18 x10^6/uL (3.50-5.40); WHITE BLOOD COUNT 14.8 x10^3/uL (4.0-11.0)
[2017-08-22 05:08] LABS: ALBUMIN 3.6 g/dL (3.4-5.0); ALBUMIN/GLOBULIN RATIO 1.1 (1.0-1.7); CALCIUM 8.9 mg/dL (8.5-10.1); CREATININE 0.9 mg/dL (0.6-1.0); GFR 70.5; POTASSIUM 3.2 mmol/L (3.5-5.1); TOTAL BILIRUBIN 0.2 mg/dL (0.2-1.0); TOTAL PROTEIN 6.8 g/dL (6.4-8.2)
[2017-08-22] MEDS: HYDROCORTISONE SOD SUCC/PF 100 MG/2 ML VIAL. IV SCH ×2 (05:43→14:25)
[2017-08-22 07:00] VITALS: BP 143/89
[2017-08-22] MEDS: FAMOTIDINE 20 MG/2 ML VIAL IVP SCH (08:00)
[2017-08-22] MEDS: busPIRone 5 MG TABLET. PO SCH (08:01)
[2017-08-22] MEDS: buPROPion XL 150 MG TAB.ER.24H. PO SCH (08:02)
[2017-08-22] MEDS: clonazePAM 1 MG TABLET PO SCH ×2 (08:02→14:30)
--- NOTE | 2017-08-22 09:12 | PDOC3 ---
Discharge Summary Visit Information Date of Admission: Aug 18, 2017 Date of Discharge: Aug 22, 2017 Admitting Diagnosis: pelvic pain Final Diagnosis urinary retention w/ acute urinary pain colon, vaginal fistula, thought to be new on admit, but not possible abnormal urinary tract anatomy with multiple abd sx history chronic chrons dz, steroids started for exac multiple abd sx for crohns dz and has ileostomy now status post colectomy with ileostomy secondary to Crohn's h/o ovarian cysts, PID, status post left oophorectomy, known chronic left kidney cyst Problems Medical Problems: (1) Abdominal pain Status: Acute Brief Hospital Course Allergies Allergies Coded Allergies Type Severity Reaction Last Updated Verified Iodinated Contrast- Oral and IV Dye Allergy Severe Hives 08/20/14 Yes clindamycin Allergy Severe Hives, feeling of thickening of the throat Yes promethazine Allergy Severe ANAPHALAXIS 08/23/14 Yes amoxicillin Allergy Intermediate Cephalosporins OK 08/21/17 Yes fentanyl Allergy Intermediate 08/04/14 Yes metoclopramide Allergy Intermediate 08/04/14 Yes ondansetron Allergy Intermediate takes zofran odt at home 08/18/17 Yes Vital Signs Vital Signs Date Time Temp Pulse Resp B/P (MAP) Pulse Ox O2 Delivery O2 Flow Rate FiO2 08/22/17 07:00 98.5 83 18 143/89 (107) 99 Room Air 98.5 Lab Results Laboratory Tests Test 08/20/17 12:20 08/22/17 03:45 White Blood Count 13.1 x10^3/uL (4.0-11.0) 14.8 x10^3/uL (4.0-11.0) Red Blood Count 4.31 x10^6/uL (3.50-5.40) 4.18 x10^6/uL (3.50-5.40) Hemoglobin 12.9 g/dL (12.0-15.5) 12.5 g/dL (12.0-15.5) Hematocrit 39.6 % (36.0-47.0) 38.7 % (36.0-47.0) Mean Corpuscular Volume 92 fL (79-100) 93 fL (79-100) Mean Corpuscular Hemoglobin 30 pg (25-35) 30 pg (25-35) Mean Corpuscular Hemoglobin Concent 33 g/dL (31-37) 32 g/dL (31-37) Red Cell Distribution Width 12.6 % (11.5-14.5) 13.0 % (11.5-14.5) Platelet Count 228 x10^3/uL (140-400) 202 x10^3/uL (140-400) Neutrophils (%) (Auto) 85 % (31-73) 83 % (31-73) Lymphocytes (%) (Auto) 10 % (24-48) 12 % (24-48) Monocytes (%) (Auto) 4 % (0-9) 5 % (0-9) Eosinophils (%) (Auto) 0 % (0-3) 0 % (0-3) Basophils (%) (Auto) 1 % (0-3) 1 % (0-3) Neutrophils # (Auto) 11.2 x10^3uL (1.8-7.7) 12.3 x10^3uL (1.8-7.7) Lymphocytes # (Auto) 1.3 x10^3/uL (1.0-4.8) 1.7 x10^3/uL (1.0-4.8) Monocytes # (Auto) 0.5 x10^3/uL (0.0-1.1) 0.7 x10^3/uL (0.0-1.1) Eosinophils # (Auto) 0.0 x10^3/uL (0.0-0.7) 0.0 x10^3/uL (0.0-0.7) Basophils # (Auto) 0.1 x10^3/uL (0.0-0.2) 0.1 x10^3/uL (0.0-0.2) Segmented Neutrophils % 82 % (35-66) Band Neutrophils % 3 % (0-9) Lymphocytes % 8 % (24-48) Monocytes % 7 % (0-10) Toxic Granulation Slight Platelet Estimate Adequate (ADEQUATE) Sodium Level 141 mmol/L (136-145) Potassium Level 3.2 mmol/L (3.5-5.1) Chloride Level 105 mmol/L (98-107) Carbon Dioxide Level 24 mmol/L (21-32) Anion Gap 12 (6-14) Blood Urea Nitrogen 11 mg/dL (7-20) Creatinine 0.9 mg/dL (0.6-1.0) Estimated GFR (Cockcroft-Gault) 70.5 BUN/Creatinine Ratio 12 (6-20) Glucose Level 145 mg/dL (70-99) Calcium Level 8.9 mg/dL (8.5-10.1) Total Bilirubin 0.2 mg/dL (0.2-1.0) Aspartate Amino Transf (AST/SGOT) 24 U/L (15-37) Alanine Aminotransferase (ALT/SGPT) 65 U/L (14-59) Alkaline Phosphatase 78 U/L (46-116) Total Protein 6.8 g/dL (6.4-8.2) Albumin 3.6 g/dL (3.4-5.0) Albumin/Globulin Ratio 1.1 (1.0-1.7) Laboratory Tests Test 08/22/17 03:45 White Blood Count 14.8 x10^3/uL (4.0-11.0) Red Blood Count 4.18 x10^6/uL (3.50-5.40) Hemoglobin 12.5 g/dL (12.0-15.5) Hematocrit 38.7 % (36.0-47.0) Mean Corpuscular Volume 93 fL (79-100) Mean Corpuscular Hemoglobin 30 pg (25-35) Mean Corpuscular Hemoglobin Concent 32 g/dL (31-37) Red Cell Distribution Width 13.0 % (11.5-14.5) Platelet Count 202 x10^3/uL (140-400) Neutrophils (%) (Auto) 83 % (31-73) Lymphocytes (%) (Auto) 12 % (24-48) Monocytes (%) (Auto) 5 % (0-9) Eosinophils (%) (Auto) 0 % (0-3) Basophils (%) (Auto) 1 % (0-3) Neutrophils # (Auto) 12.3 x10^3uL (1.8-7.7) Lymphocytes # (Auto) 1.7 x10^3/uL (1.0-4.8) Monocytes # (Auto) 0.7 x10^3/uL (0.0-1.1) Eosinophils # (Auto) 0.0 x10^3/uL (0.0-0.7) Basophils # (Auto) 0.1 x10^3/uL (0.0-0.2) Sodium Level 141 mmol/L (136-145) Potassium Level 3.2 mmol/L (3.5-5.1) Chloride Level 105 mmol/L (98-107) Carbon Dioxide Level 24 mmol/L (21-32) Anion Gap 12 (6-14) Blood Urea Nitrogen 11 mg/dL (7-20) Creatinine 0.9 mg/dL (0.6-1.0) Estimated GFR (Cockcroft-Gault) 70.5 BUN/Creatinine Ratio 12 (6-20) Glucose Level 145 mg/dL (70-99) Calcium Level 8.9 mg/dL (8.5-10.1) Total Bilirubin 0.2 mg/dL (0.2-1.0) Aspartate Amino Transf (AST/SGOT) 24 U/L (15-37) Alanine Aminotransferase (ALT/SGPT) 65 U/L (14-59) Alkaline Phosphatase 78 U/L (46-116) Total Protein 6.8 g/dL (6.4-8.2) Albumin 3.6 g/dL (3.4-5.0) Albumin/Globulin Ratio 1.1 (1.0-1.7) Brief Hospital Course Ms. Nicholson is a 37 old female, admit with abd pain, pelvic, pain , chrons disease, treated as exac complain of stool from vagina, we worked up as new problem, then tried to transfer to [facility], they are aware, fistula is known and old problem. Dr. Rickie Doll, surgeon, has seen mult times urinary retention on matos now possible abnormal urinary tract anatomy with multiple abd sx history chronic crhons dz, now with possible enteritis on CT multiple abd sx for crohns dz and has ileostomy now status post colectomy with ileostomy secondary to Crohn's h/o ovarian cysts, PID, status post left oophorectomy, known chronic left kidney cyst no UTI gi consulted - ID consulted, on matos transfer to [facility] and iv benadryl pain control refused IVF for now, clear liquid diet add pyridium, refuse oxybutinin dvt , gi ppx pt said 2 times feces coming from vagina verified by night nurse, worried about fistula, but daytime nurse had no report. pt require sx consult Discharge Information Condition at Discharge: Improved Follow Up: Weeks Disposition/Orders: D/C to Another Facility Scheduled Biotin (Biotin), 10,000 MCG PO DAILY, (Reported) Bupropion Hcl (Wellbutrin Xl), 300 MG PO BID, (Reported) Buspirone Hcl (Buspirone Hcl), 15 MG PO BID, (Reported) Clonazepam (Clonazepam), 1 TAB PO TID, (Reported) Pantoprazole Sodium (Pantoprazole Sodium), 40 MG PO DAILY, (Reported) Pantoprazole Sodium (Protonix), 40 MG PO DAILY, (Reported) Simethicone (Simethicone), 125 MG PO DAILY, (Reported) Scheduled PRN Clonazepam (Clonazepam), 1 TAB PO BID PRN for ANXIETY, (Reported) Diphenhydramine Hcl (Benadryl), 25 MG PO PRN Q4-6HRS PRN for HIVES, (Reported) Ondansetron (Zofran Odt), 4 MG PO BID PRN for NAUSEA/VOMITING, (Reported) Phenazopyridine Hcl (Pyridium), 200 MG PO TID PRN for urinary tract pain, ( Reported) Discontinued Medications Bromocriptine Mesylate (Bromocriptine Mesylate), 2.5 MG PO BID, (Reported) Bromocriptine Mesylate (Bromocriptine Mesylate), 1.25 MG PO HS, (Reported) Lisinopril (Lisinopril), 20 MG PO DAILY, (Reported) Oxycodone Hcl/Acetaminophen (Oxycodone-Acetaminophen 5-325), 1 EACH PO Q4HRS PRN for PAIN, (Reported) Patient Instructions Patient Instructions > 30 min I advised her to continue further care with doctors who are aware of her medical conditions, it made no sense for her to seek care here, as this is a much smaller hospital with limited subspecialist support ABI MAHAN MD Aug 22, 2017 09:12
[2017-08-22 11:00] VITALS: BP 107/78
--- NOTE | 2017-08-22 11:09 | PDOC ---
Subjective: Subjective: Says transferring to [facility] today. Same symptoms - abd pain, passing air/stool vaginally. Now relates previously on Remicade and Humira, both "stopped working." At one point Entyvio was suggested but not pursued because she's "a hard stick." Current symptoms do not feel like a Crohn's flare. 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 Holt, also for urology eval) -- Transfer per primary. MARIA EUGENIA MO Aug 22, 2017 11:09
--- NOTE | 2017-08-22 11:42 | PDOC ---
SURGICAL PROGRESS NOTE Subjective reports continued pain, gas per vagina, etc plans for [facility] tx today Vital Signs Vital Signs Date Time Temp Pulse Resp B/P (MAP) Pulse Ox O2 Delivery O2 Flow Rate FiO2 08/22/17 11:08 99 Room Air 08/22/17 07:00 98.5 83 18 143/89 (107) 98.5 I&O Intake and Output 08/23/17 07:00 Intake Total 210 ml Balance 210 ml Intake Oral 210 ml General: Alert, Oriented X3, Cooperative, No acute distress Abdomen: Soft Labs Laboratory Tests Test 08/20/17 12:20 08/22/17 03:45 White Blood Count 13.1 x10^3/uL (4.0-11.0) 14.8 x10^3/uL (4.0-11.0) Red Blood Count 4.31 x10^6/uL (3.50-5.40) 4.18 x10^6/uL (3.50-5.40) Hemoglobin 12.9 g/dL (12.0-15.5) 12.5 g/dL (12.0-15.5) Hematocrit 39.6 % (36.0-47.0) 38.7 % (36.0-47.0) Mean Corpuscular Volume 92 fL (79-100) 93 fL (79-100) Mean Corpuscular Hemoglobin 30 pg (25-35) 30 pg (25-35) Mean Corpuscular Hemoglobin Concent 33 g/dL (31-37) 32 g/dL (31-37) Red Cell Distribution Width 12.6 % (11.5-14.5) 13.0 % (11.5-14.5) Platelet Count 228 x10^3/uL (140-400) 202 x10^3/uL (140-400) Neutrophils (%) (Auto) 85 % (31-73) 83 % (31-73) Lymphocytes (%) (Auto) 10 % (24-48) 12 % (24-48) Monocytes (%) (Auto) 4 % (0-9) 5 % (0-9) Eosinophils (%) (Auto) 0 % (0-3) 0 % (0-3) Basophils (%) (Auto) 1 % (0-3) 1 % (0-3) Neutrophils # (Auto) 11.2 x10^3uL (1.8-7.7) 12.3 x10^3uL (1.8-7.7) Lymphocytes # (Auto) 1.3 x10^3/uL (1.0-4.8) 1.7 x10^3/uL (1.0-4.8) Monocytes # (Auto) 0.5 x10^3/uL (0.0-1.1) 0.7 x10^3/uL (0.0-1.1) Eosinophils # (Auto) 0.0 x10^3/uL (0.0-0.7) 0.0 x10^3/uL (0.0-0.7) Basophils # (Auto) 0.1 x10^3/uL (0.0-0.2) 0.1 x10^3/uL (0.0-0.2) Segmented Neutrophils % 82 % (35-66) Band Neutrophils % 3 % (0-9) Lymphocytes % 8 % (24-48) Monocytes % 7 % (0-10) Toxic Granulation Slight Platelet Estimate Adequate (ADEQUATE) Sodium Level 141 mmol/L (136-145) Potassium Level 3.2 mmol/L (3.5-5.1) Chloride Level 105 mmol/L (98-107) Carbon Dioxide Level 24 mmol/L (21-32) Anion Gap 12 (6-14) Blood Urea Nitrogen 11 mg/dL (7-20) Creatinine 0.9 mg/dL (0.6-1.0) Estimated GFR (Cockcroft-Gault) 70.5 BUN/Creatinine Ratio 12 (6-20) Glucose Level 145 mg/dL (70-99) Calcium Level 8.9 mg/dL (8.5-10.1) Total Bilirubin 0.2 mg/dL (0.2-1.0) Aspartate Amino Transf (AST/SGOT) 24 U/L (15-37) Alanine Aminotransferase (ALT/SGPT) 65 U/L (14-59) Alkaline Phosphatase 78 U/L (46-116) Total Protein 6.8 g/dL (6.4-8.2) Albumin 3.6 g/dL (3.4-5.0) Albumin/Globulin Ratio 1.1 (1.0-1.7) Laboratory Tests Test 08/22/17 03:45 White Blood Count 14.8 x10^3/uL (4.0-11.0) Red Blood Count 4.18 x10^6/uL (3.50-5.40) Hemoglobin 12.5 g/dL (12.0-15.5) Hematocrit 38.7 % (36.0-47.0) Mean Corpuscular Volume 93 fL (79-100) Mean Corpuscular Hemoglobin 30 pg (25-35) Mean Corpuscular Hemoglobin Concent 32 g/dL (31-37) Red Cell Distribution Width 13.0 % (11.5-14.5) Platelet Count 202 x10^3/uL (140-400) Neutrophils (%) (Auto) 83 % (31-73) Lymphocytes (%) (Auto) 12 % (24-48) Monocytes (%) (Auto) 5 % (0-9) Eosinophils (%) (Auto) 0 % (0-3) Basophils (%) (Auto) 1 % (0-3) Neutrophils # (Auto) 12.3 x10^3uL (1.8-7.7) Lymphocytes # (Auto) 1.7 x10^3/uL (1.0-4.8) Monocytes # (Auto) 0.7 x10^3/uL (0.0-1.1) Eosinophils # (Auto) 0.0 x10^3/uL (0.0-0.7) Basophils # (Auto) 0.1 x10^3/uL (0.0-0.2) Sodium Level 141 mmol/L (136-145) Potassium Level 3.2 mmol/L (3.5-5.1) Chloride Level 105 mmol/L (98-107) Carbon Dioxide Level 24 mmol/L (21-32) Anion Gap 12 (6-14) Blood Urea Nitrogen 11 mg/dL (7-20) Creatinine 0.9 mg/dL (0.6-1.0) Estimated GFR (Cockcroft-Gault) 70.5 BUN/Creatinine Ratio 12 (6-20) Glucose Level 145 mg/dL (70-99) Calcium Level 8.9 mg/dL (8.5-10.1) Total Bilirubin 0.2 mg/dL (0.2-1.0) Aspartate Amino Transf (AST/SGOT) 24 U/L (15-37) Alanine Aminotransferase (ALT/SGPT) 65 U/L (14-59) Alkaline Phosphatase 78 U/L (46-116) Total Protein 6.8 g/dL (6.4-8.2) Albumin 3.6 g/dL (3.4-5.0) Albumin/Globulin Ratio 1.1 (1.0-1.7) Problem List Problems Medical Problems: (1) Abdominal pain Status: Acute Assessment/Plan plans for tx to [facility], urology and colorectal available there Problems: KERRIE VARELA BARBER STYLIST Aug 22, 2017 11:42
--- NOTE | 2017-08-22 13:44 | PDOC2 ---
CONSULT Date of Consult Date of Consult DATE: 08/22/17 TIME: 13:38 Reason for Consult Reason for Consult: difficulty initiating stream and vaginal irritation Referring Physician Referring Physician: Dr. Farris Identification/Chief Complaint Chief Complaint difficulty initiating stream Problems: Source Source: Chart review, Patient History of Present Illness Reason for Visit: 37 y/o with h/o IBD in form of Crohn's dz presented to ED with inability to initiate urine stream. She reports multiple abd surgeries and currently has stoma in place. She had hysterectomy in past. Pt. denies any abnml vaginal discharge. Pt. reports swelling in vaginal area that was relieved with matos cath placement. She is in process of transfer to [facility] for Urology care. Past Medical History Cardiovascular: No pertinent hx Pulmonary: No pertinent hx CENTRAL NERVOUS SYSTEM: Carpal Tunnel Syndrome GI: Other Heme/Onc: B12 deficiency Psych: No pertinent hx Musculoskeletal: low back pain Past Surgical History Past Surgical History: Appendectomy, Cholecystectomy, Hysterectomy, Colon Resection Family History Family History: Cancer Social History No Lives: with Family Current Problem List Problem List Problems Medical Problems: (1) Abdominal pain Status: Acute Current Medications Current Medications Current Medications Morphine Sulfate 2 mg PRN Q15MIN PRN IV/SQ PAIN GREATER THAN 3/10 Last administered on 08/18/17 15:38; Start 08/18/17 at 15:30; Stop 08/19/17 at 00:00 ; Status DC Sodium Chloride 1,000 ml @ 1,000 mls/hr Q1H IV Last administered on 08/18/17 15:37; Start 08/18/17 at 15:30; Stop 08/18/17 at 16:29; Status DC Ondansetron HCl (Zofran) 4 mg 1X ONCE IV Last administered on 08/18/17 16:07 ; Start 08/18/17 at 16:15; Stop 08/18/17 at 16:16; Status DC Diphenhydramine HCl (Benadryl) 25 mg 1X ONCE IVP Last administered on 16:07; Start 08/18/17 at 16:15; Stop 08/18/17 at 16:16; Status DC Hydromorphone HCl (Dilaudid) 1 mg PRN Q15MIN PRN IV/SQ PAIN GREATER THAN 3/10 Last administered on 08/18/17 16:08; Start 08/18/17 at 16:00; Stop 08/19/17 at 00:00; Status DC Diphenhydramine HCl (Benadryl) 25 mg 1X ONCE IVP Last administered on 18:31; Start 08/18/17 at 18:30; Stop 08/18/17 at 18:31; Status DC Ondansetron HCl (Zofran) 4 mg 1X ONCE IV Last administered on 08/18/17 18:31 ; Start 08/18/17 at 18:30; Stop 08/18/17 at 18:31; Status DC Ondansetron HCl (Zofran) 4 mg PRN Q8HRS PRN IV NAUSEA/VOMITING Last administered on 08/19/17 14:59; Start 08/18/17 at 18:30; Stop 08/19/17 at 18:29 ; Status DC Diphenhydramine HCl (Benadryl) 25 mg PRN Q6HRS PRN PO nausea Last administered on 08/19/17 00:49; Start 08/18/17 at 18:30 Hydromorphone HCl (Dilaudid) 0.5 mg PRN Q6HRS PRN IV pain Last administered on 08/18/17 18:34; Start 08/18/17 at 18:30; Stop 08/19/17 at 00:00; Status DC Hydralazine HCl (Apresoline) 10 mg PRN Q4HRS PRN IVP htn; Start 08/18/17 at 19: 00; Status Cancel Hydromorphone HCl (Dilaudid) 2 mg PRN Q3HRS PRN IV PAIN Last administered on 11:56; Start 08/19/17 at 00:00 Clonazepam (KlonoPIN) 0.5 mg PRN BID PRN PO ANXIETY; Start 08/19/17 at 00:45 Clonazepam (KlonoPIN) 1 mg TID PO ; Start 08/19/17 at 09:00 Pantoprazole Sodium (Protonix) 40 mg DAILYAC PO ; Start 08/19/17 at 07:30; Stop 08/19/17 at 14:30; Status DC Bupropion HCl (Wellbutrin Xl) 300 mg BID PO ; Start 08/19/17 at 09:00 Buspirone HCl (Buspar) 15 mg BID PO ; Start 08/19/17 at 09:00 Famotidine (Pepcid) 20 mg BID IVP Last administered on 08/22/17 08:00; Start 08/19/17 at 06:30 Diphenhydramine HCl (Benadryl) 25 mg 1X ONCE IVP Last administered on 06:39; Start 08/19/17 at 06:30; Stop 08/19/17 at 06:31; Status DC Phenazopyridine HCl (Pyridium) 200 mg PRN TID PRN PO URINARY PAIN Last administered on 08/22/17 11:55; Start 08/19/17 at 12:45 Hydrocortisone Sodium Succinate (Solu-CORTEF) 100 mg Q8HRS IV Last administered on 08/22/17 05:43; Start 08/19/17 at 14:00 Diphenhydramine HCl (Benadryl) 25 mg PRN Q6HRS PRN IVP ITCHING Last administered on 08/21/17 09:45; Start 08/19/17 at 14:30; Stop 08/21/17 at 11:33 ; Status DC Famotidine (Pepcid) 20 mg QHS IVP ; Start 08/19/17 at 21:00; Stop 08/20/17 at 14 :29; Status DC Acetaminophen (Tylenol) 650 mg PRN Q6HRS PRN PO FEVER; Start 08/19/17 at 14:30 Ondansetron HCl (Zofran) 4 mg PRN Q6HRS PRN IV NAUSEA/VOMITING Last administered on 08/22/17 10:02; Start 08/19/17 at 14:30 Morphine Sulfate 2 mg PRN Q2HR PRN IV PAIN Last administered on 08/20/17 22:51 ; Start 08/19/17 at 14:30; Stop 08/21/17 at 11:33; Status DC Tramadol HCl (Ultram) 50 mg PRN Q6HRS PRN PO PAIN; Start 08/19/17 at 14:30 Hydralazine HCl (Apresoline) 10 mg PRN Q4HRS PRN IVP ELEVATED BP, SEE COMMENTS ; Start 08/19/17 at 14:30 Docusate Sodium (Colace) 100 mg PRN DAILY PRN PO CONSTIPATION; Start 08/19/17 at 14:30 Zolpidem Tartrate (Ambien) 5 mg PRN QHS PRN PO INSOMNIA Last administered on 23:04; Start 08/20/17 at 21:00 Diphenhydramine HCl (Benadryl) 25 mg PRN Q4HRS PRN IVP ITCHING Last administered on 08/22/17 11:55; Start 08/21/17 at 11:45 Morphine Sulfate 4 mg PRN Q2HR PRN IV PAIN Last administered on 08/22/17 10: 02; Start 08/21/17 at 11:45 Active Scripts Active Reported Benadryl (Diphenhydramine Hcl) 25 Mg Capsule 25 Mg PO PRN Q4-6HRS PRN Zofran Odt (Ondansetron) 4 Mg Tab.rapdis 4 Mg PO BID PRN Biotin 10,000 Mcg Tab.rapdis 10,000 Mcg PO DAILY Simethicone 125 Mg Capsule 125 Mg PO DAILY Protonix (Pantoprazole Sodium) 40 Mg Tablet.dr 40 Mg PO DAILY Clonazepam 0.5 Mg Tablet 1 Tab PO BID PRN Buspirone Hcl 15 Mg Tablet 15 Mg PO BID Pyridium (Phenazopyridine Hcl) 200 Mg Tablet 200 Mg PO TID PRN Pantoprazole Sodium 40 Mg Tablet.dr 40 Mg PO DAILY Wellbutrin Xl (Bupropion Hcl) 300 Mg Tab.er.24h 300 Mg PO BID Clonazepam 1 Mg Tablet 1 Tab PO TID Allergies Allergies: Coded Allergies: Iodinated Contrast- Oral and IV Dye (Verified Allergy, Severe, Hives, 08/20) clindamycin (Verified Allergy, Severe, Hives, feeling of thickening of the throat, 08/25/14) promethazine (Verified Allergy, Severe, ANAPHALAXIS, 08/23/14) amoxicillin (Verified Allergy, Intermediate, Cephalosporins OK, 08/21/17) fentanyl (Verified Allergy, Intermediate, 08/04/14) metoclopramide (Verified Allergy, Intermediate, 08/04/14) ondansetron (Verified Allergy, Intermediate, takes zofran odt at home, 08/18/17) ROS General: YES: Fatigue, Malaise, Appetite, No: Chills, Night Sweats, Other PSYCHOLOGICAL ROS: YES: Anxiety, No: Behavioral Disorder, Concentration difficultie, Decreased libido, Depression, Disorientation, Hallucinations, Hostility, Irritablity, Memory difficulties, Mood Swings, Obsessive thoughts, Physical abuse, Sexual abuse, Sleep disturbances, Suicidal ideation, Other Eyes: No Blurry vision, No Decreased vision, No Double vision, No Dry eyes, No Excessive tearing, No Eye Pain, No Itchy Eyes, No Loss of vision, No Photophobia , No Scotomata, No Uses contacts, No Uses glasses, No Other HEENT: No: Heacaches, Visual Changes, Hearing change, Nasal congestion, Nasal discharge, Oral lesions, Sinus pain, Sore Throat, Epistaxis, Sneezing, Snoring, Tinnitus, Vertigo, Vocal changes, Other ALLERGY AND IMMUNOLOGY: No: Hives, Insect Bite Sensitivity, Itchy/Watery Eyes, Nasal Congestion, Post Nasal Drip, Seasonal Allergies, Other Hematological and Lymphatic: No: Bleeding Problems, Blood Clots, Blood Transfusions, Brusing, Night Sweats, Pallor, Swollen Lymph Nodes, Other ENDOCRINE: No: Breast Changes, Galactorrhea, Hair Pattern Changes, Hot Flashes , Malaise/lethargy, Mood Swings, Palpitations, Polydipsia/polyuria, Skin Changes , Temperature Intolerance, Unexpected Weight Changes, Other Breast: No New/Changing Breast Lumps, No Nipple changes, No Nipple discharge, No Other Respiratory: No: Cough, Hemoptysis, Orthopnea, Pleuritic Pain, Shortness of breath, SOB with excertion, Sputum Changes, Stridor, Tachypnea, Wheezing, Other Cardiovascular: No Chest Pain, No Palpitations, No Orthopnea, No Paroxysmal Noc. Dyspnea, No Edema, No Lt Headedness, No Other Gastrointestinal: Yes Abdominal Pain Genitourinary: YES Retention, YES Flank Pain Physical Exam General: Alert, Oriented X3, Cooperative HEENT: Atraumatic Lungs: Clear to auscultation Heart: Regular rate Abdomen: Normal bowel sounds, Soft, No masses Psych/Mental Status: Mental status NL Vitals VITALS Vital Signs Date Time Temp Pulse Resp B/P (MAP) Pulse Ox O2 Delivery O2 Flow Rate FiO2 08/22/17 12:35 99 Room Air 08/22/17 11:00 98.3 77 18 107/78 (88) 98.3 Labs Labs Laboratory Tests Test 08/22/17 03:45 White Blood Count 14.8 x10^3/uL (4.0-11.0) Red Blood Count 4.18 x10^6/uL (3.50-5.40) Hemoglobin 12.5 g/dL (12.0-15.5) Hematocrit 38.7 % (36.0-47.0) Mean Corpuscular Volume 93 fL (79-100) Mean Corpuscular Hemoglobin 30 pg (25-35) Mean Corpuscular Hemoglobin Concent 32 g/dL (31-37) Red Cell Distribution Width 13.0 % (11.5-14.5) Platelet Count 202 x10^3/uL (140-400) Neutrophils (%) (Auto) 83 % (31-73) Lymphocytes (%) (Auto) 12 % (24-48) Monocytes (%) (Auto) 5 % (0-9) Eosinophils (%) (Auto) 0 % (0-3) Basophils (%) (Auto) 1 % (0-3) Neutrophils # (Auto) 12.3 x10^3uL (1.8-7.7) Lymphocytes # (Auto) 1.7 x10^3/uL (1.0-4.8) Monocytes # (Auto) 0.7 x10^3/uL (0.0-1.1) Eosinophils # (Auto) 0.0 x10^3/uL (0.0-0.7) Basophils # (Auto) 0.1 x10^3/uL (0.0-0.2) Sodium Level 141 mmol/L (136-145) Potassium Level 3.2 mmol/L (3.5-5.1) Chloride Level 105 mmol/L (98-107) Carbon Dioxide Level 24 mmol/L (21-32) Anion Gap 12 (6-14) Blood Urea Nitrogen 11 mg/dL (7-20) Creatinine 0.9 mg/dL (0.6-1.0) Estimated GFR (Cockcroft-Gault) 70.5 BUN/Creatinine Ratio 12 (6-20) Glucose Level 145 mg/dL (70-99) Calcium Level 8.9 mg/dL (8.5-10.1) Total Bilirubin 0.2 mg/dL (0.2-1.0) Aspartate Amino Transf (AST/SGOT) 24 U/L (15-37) Alanine Aminotransferase (ALT/SGPT) 65 U/L (14-59) Alkaline Phosphatase 78 U/L (46-116) Total Protein 6.8 g/dL (6.4-8.2) Albumin 3.6 g/dL (3.4-5.0) Albumin/Globulin Ratio 1.1 (1.0-1.7) Laboratory Tests Test 08/22/17 03:45 White Blood Count 14.8 x10^3/uL (4.0-11.0) Red Blood Count 4.18 x10^6/uL (3.50-5.40) Hemoglobin 12.5 g/dL (12.0-15.5) Hematocrit 38.7 % (36.0-47.0) Mean Corpuscular Volume 93 fL (79-100) Mean Corpuscular Hemoglobin 30 pg (25-35) Mean Corpuscular Hemoglobin Concent 32 g/dL (31-37) Red Cell Distribution Width 13.0 % (11.5-14.5) Platelet Count 202 x10^3/uL (140-400) Neutrophils (%) (Auto) 83 % (31-73) Lymphocytes (%) (Auto) 12 % (24-48) Monocytes (%) (Auto) 5 % (0-9) Eosinophils (%) (Auto) 0 % (0-3) Basophils (%) (Auto) 1 % (0-3) Neutrophils # (Auto) 12.3 x10^3uL (1.8-7.7) Lymphocytes # (Auto) 1.7 x10^3/uL (1.0-4.8) Monocytes # (Auto) 0.7 x10^3/uL (0.0-1.1) Eosinophils # (Auto) 0.0 x10^3/uL (0.0-0.7) Basophils # (Auto) 0.1 x10^3/uL (0.0-0.2) Sodium Level 141 mmol/L (136-145) Potassium Level 3.2 mmol/L (3.5-5.1) Chloride Level 105 mmol/L (98-107) Carbon Dioxide Level 24 mmol/L (21-32) Anion Gap 12 (6-14) Blood Urea Nitrogen 11 mg/dL (7-20) Creatinine 0.9 mg/dL (0.6-1.0) Estimated GFR (Cockcroft-Gault) 70.5 BUN/Creatinine Ratio 12 (6-20) Glucose Level 145 mg/dL (70-99) Calcium Level 8.9 mg/dL (8.5-10.1) Total Bilirubin 0.2 mg/dL (0.2-1.0) Aspartate Amino Transf (AST/SGOT) 24 U/L (15-37) Alanine Aminotransferase (ALT/SGPT) 65 U/L (14-59) Alkaline Phosphatase 78 U/L (46-116) Total Protein 6.8 g/dL (6.4-8.2) Albumin 3.6 g/dL (3.4-5.0) Albumin/Globulin Ratio 1.1 (1.0-1.7) Assessment/Plan Assessment/Plan A: IBD with current flare up Urinary retention P: No apparent [employer] Techn[employer] problem. Agree with transfer to [facility] for Urology care. Thank you for consult. RANDAL DOE Jr, MD Aug 22, 2017 13:43
== END 2017-08-22 15:31 | disposition short-term general hospital (02) | DRG 386 ==
LOC: ER 14:23 → 4 NORTH 18:00 → OBSVTOIN 08-21 11:24
PROVIDERS: ADMIT Internal Medicine Hematology & Oncology; ATTEND Internal Medicine Hematology & Oncology
DX: K50.90 Crohn's disease, unspecified, without complications (principal); N39.0 Urinary tract infection, site not specified; N28.1 Cyst of kidney, acquired; N82.8 Other female genital tract fistulae; N73.9 Female pelvic inflammatory disease, unspecified; F41.9 Anxiety disorder, unspecified; F32.9 Major depressive disorder, single episode, unspecified; K21.9 Gastro-esophageal reflux disease without esophagitis; N89.8 Other specified noninflammatory disorders of vagina; Z76.5 Malingerer [conscious simulation]; Z82.49 Family history of ischemic heart disease and other diseases of the circulatory system; Z83.3 Family history of diabetes mellitus; Z87.440 Personal history of urinary (tract) infections; Z90.49 Acquired absence of other specified parts of digestive tract; Z91.19 Patient's noncompliance with other medical treatment and regimen; Z90.710 Acquired absence of both cervix and uterus; Z93.2 Ileostomy status; Z90.722 Acquired absence of ovaries, bilateral; Z88.8 Allergy status to other drugs, medicaments and biological substances; Z88.1 Allergy status to other antibiotic agents; Z91.041 Radiographic dye allergy status; Z90.89 Acquired absence of other organs; Z84.89 Family history of other specified conditions; Z80.9 Family history of malignant neoplasm, unspecified
CPT/HCPCS: 36415; 74176; 76770; 76857; 80048; 80053; 80076; 80307; 81001; 82553; 83690; 85007; 85025; 85610; 85730; 87086; 96361; 96374; 96375; 96376; G0378; G0379; J1170; J1200; J1720; J2270; J2405; J7030; Q0163; S0028; 99285-25; G0479

== ENCOUNTER 2019-02-21 21:10 | Inpatient (IN) | payer OTHER, MEDICARE ==
[~2019-02-21] VITALS: Ht 170.2 cm; Wt 71.9 kg
[~2019-02-21 21:10] MED LIST changes: +BIOT10006 PO; +BUSP15TA PO; +CLON0.5T11 PO; +CLON1TAB11 PO; -CLON1TAB3 PO; +DIPH25CA58 PO; +ONDA4TAB10 PO; +PANT40TA3 PO; +SIME125C65 PO
--- NOTE | 2019-02-21 22:16 | PHYS DOC ---
Past Medical History Past Medical History: Abscess, Ovarian Cyst, P.I.D., Other Additional Past Medical Histor: Crohn's Past Surgical History: Appendectomy, Cholecystectomy, Hysterectomy, Oophorectomy, Other Additional Past Surgical Histo: Ilelostomy, oophorectomy, breast augmentation, multiple stoma revisions Alcohol Use: None Drug Use: None, Opiates Adult General Chief Complaint Chief Complaint: NAUSEA/VOMITING/DIARRHA HPI HPI Patient is a 39 year old female with a history of Crohn's presents to the ED complaining of nausea and vomiting 2 days ago. Patient states that she has not been able to hold anything down. Patient has a history of complete colon removal and an ostomy in place. States she has had the ostomy since 2007. Complains of diffuse abdominal pain and nausea/vomiting. Patient is currently not taking any medications for her crohns disease. States she follows with Dr. Burch but has not seen him in a year. Denies chest pain, shortness of breath, fever, dizziness, weakness, headache, hemoptysis, blood in stool. Review of Systems Review of Systems Constitutional: Denies fever or chills [] Eyes: Denies change in visual acuity, redness, or eye pain [] HENT: Denies nasal congestion or sore throat [] Respiratory: Denies cough or shortness of breath [] Cardiovascular: No additional information not addressed in HPI [] GI: Complains of abdominal pain, nausea and vomiting. Denies bloody stools or diarrhea [] : Denies dysuria or hematuria [] Musculoskeletal: Denies back pain or joint pain [] Integument: Denies rash or skin lesions [] Neurologic: Denies headache, focal weakness or sensory changes [] All other systems were reviewed and found to be within normal limits, except as documented in this note. Current Medications Current Medications Current Medications Medications (Trade) Dose Ordered Sig/[facility] Start Time Stop Time Status Last Admin Dose Admin Benzocaine (Hurricaine One) 1 spray 1X ONCE 02/22/19 00:30 02/22/19 00:31 Hydromorphone HCl (Dilaudid) 0.5 mg 1X ONCE 02/22/19 00:00 02/22/19 00:01 DC Morphine Sulfate (Morphine Sulfate) 4 mg PRN Q2HR PRN 02/22/19 00:00 02/22/19 23:59 Ondansetron HCl (Zofran) 4 mg PRN Q8HRS PRN 02/22/19 00:00 02/22/19 23:59 Sodium Chloride (NORMAL SALINE FLUSH for STERILE FIELD) 10 ml STK-MED ONCE 02/21/19 22:22 02/21/19 22:23 DC Allergies Allergies Allergies Coded Allergies Type Severity Reaction Last Updated Verified Iodinated Contrast- Oral and IV Dye Allergy Severe Hives 08/20/14 Yes clindamycin Allergy Severe Hives, feeling of thickening of the throat Yes promethazine Allergy Severe ANAPHALAXIS 08/23/14 Yes amoxicillin Allergy Intermediate Cephalosporins OK 08/21/17 Yes fentanyl Allergy Intermediate 08/04/14 Yes metoclopramide Allergy Intermediate 08/04/14 Yes ondansetron Allergy Intermediate takes zofran odt at home 08/18/17 Yes Physical Exam Physical Exam Constitutional: Well developed, well nourished, no acute distress, non-toxic appearance. [] HENT: Normocephalic, atraumatic Eyes: PERRLA, EOMI, conjunctiva normal, no discharge. [] Neck: Normal range of motion, no tenderness, supple, no stridor. [] Cardiovascular:Heart rate regular rhythm, no murmur [] Lungs & Thorax: Bilateral breath sounds clear to auscultation [] Abdomen: Bowel sounds normal, soft, Ostomy in place. diffuse abdominal tenderness. no masses, no pulsatile masses. [] Skin: Warm, dry, no erythema, no rash. [] Back: No tenderness, no CVA tenderness. [] Extremities: No tenderness, no cyanosis, no clubbing, ROM intact, no edema. [] Neurologic: Alert and oriented X 3, normal motor function, normal sensory function, no focal deficits noted. [] Psychologic: Affect normal, judgement normal, mood normal. [] Current Patient Data Vital Signs Vital Signs Date Time Temp Pulse Resp B/P (MAP) Pulse Ox O2 Delivery O2 Flow Rate FiO2 02/21/19 22:47 96 Room Air 02/21/19 22:02 97.8 112 17 140/103 (115) 97.8 Lab Values Laboratory Tests Test 02/21/19 22:40 02/21/19 23:10 White Blood Count 10.9 x10^3/uL (4.0-11.0) Red Blood Count 4.97 x10^6/uL (3.50-5.40) Hemoglobin 15.7 g/dL (12.0-15.5) H Hematocrit 45.8 % (36.0-47.0) Mean Corpuscular Volume 92 fL (79-100) Mean Corpuscular Hemoglobin 32 pg (25-35) Mean Corpuscular Hemoglobin Concent 34 g/dL (31-37) Red Cell Distribution Width 13.2 % (11.5-14.5) Platelet Count 258 x10^3/uL (140-400) Neutrophils (%) (Auto) 74 % (31-73) H Lymphocytes (%) (Auto) 19 % (24-48) L Monocytes (%) (Auto) 6 % (0-9) Eosinophils (%) (Auto) 1 % (0-3) Basophils (%) (Auto) 0 % (0-3) Neutrophils # (Auto) 8.0 x10^3uL (1.8-7.7) H Lymphocytes # (Auto) 2.0 x10^3/uL (1.0-4.8) Monocytes # (Auto) 0.6 x10^3/uL (0.0-1.1) Eosinophils # (Auto) 0.1 x10^3/uL (0.0-0.7) Basophils # (Auto) 0.0 x10^3/uL (0.0-0.2) Sodium Level 137 mmol/L (136-145) Potassium Level 3.5 mmol/L (3.5-5.1) Chloride Level 99 mmol/L (98-107) Carbon Dioxide Level 27 mmol/L (21-32) Anion Gap 11 (6-14) Blood Urea Nitrogen 14 mg/dL (7-20) Creatinine 0.8 mg/dL (0.6-1.0) Estimated GFR (Cockcroft-Gault) 79.9 BUN/Creatinine Ratio 18 (6-20) Glucose Level 103 mg/dL (70-99) H Calcium Level 9.5 mg/dL (8.5-10.1) Total Bilirubin 0.6 mg/dL (0.2-1.0) Aspartate Amino Transferase (AST) 24 U/L (15-37) Alanine Aminotransferase (ALT) 32 U/L (14-59) Alkaline Phosphatase 106 U/L (46-116) Total Protein 7.9 g/dL (6.4-8.2) Albumin 4.1 g/dL (3.4-5.0) Albumin/Globulin Ratio 1.1 (1.0-1.7) Lipase 207 U/L (73-393) Urine Collection Type Void Urine Color Yellow Urine Clarity Cloudy Urine pH 6.0 Urine Specific Ione 1.020 Urine Protein Negative mg/dL (NEG-TRACE) Urine Glucose (UA) Negative mg/dL (NEG) Urine Ketones (Stick) Negative mg/dL (NEG) Urine Blood Large (NEG) Urine Nitrite Negative (NEG) Urine Bilirubin Small (NEG) Urine Urobilinogen Dipstick 0.2 mg/dL (0.2 mg/dL) Urine Leukocyte Esterase Moderate (NEG) Urine RBC Rare /HPF (0-2) Urine WBC 1-4 /HPF (0-4) Urine Squamous Epithelial Cells Many /LPF Urine Bacteria Many /HPF (0-FEW) Urine Hyaline Casts Few /HPF Urine Mucus Marked /LPF Laboratory Tests 02/21/19 22:40 Laboratory Tests 02/21/19 22:40 EKG EKG [] Radiology/Procedures Radiology/Procedures PROCEDURE: CT ABDOMEN PELVIS WO CONTRAST INDICATION: ABD PAIN, VOMITING;HX CROHN'S COMPARISON: August 18, 2017 TECHNIQUE: Axial CT images obtained through the abdomen and pelvis without contrast. Limited assessment of solid organ structures and vasculature secondary to lack of intravenous contrast.. One or more of the following individualized dose reduction techniques were utilized for this examination: 1. Automated exposure control; 2. Adjustment of the mA and/or kV according to patient size; 3. Use of iterative reconstruction technique. FINDINGS: Nodular opacity at left lung base measuring up to 16mm. Abdominal aorta is not aneurysmal. Postcholecystectomy changes. Liver mildly prominent. No peripancreatic fluid collection. Low-density lesion of spleen which appears decreased in size compared to prior currently measures approximately 9 mm. High density exophytic lesion upper pole left kidney measuring approximately 16 mm. No left-sided hydronephrosis. Urinary bladder is partially distended. Left lower quadrant ostomy. No right-sided hydronephrosis. There are a few distended loops of small bowel identified. For example in the right upper pelvis measuring up to about 27 mm. Central possible high density lesion within the left kidney measuring up to 12 mm. Degenerative changes the spine. Multilevel central canal and neural foraminal stenosis. IMPRESSION: 1. Within the pelvis there is loops of small bowel that are mildly dilated. This is a mild finding however causes such as early partial small bowel obstruction would be difficult to exclude given this finding. Another possible cause would include enteritis including from infectious or inflammatory causes. 2. There is a couple of left renal lesions that appear higher than simple attenuation. Could be from proteinaceous cyst but a solid component is not excluded on this examination. 3. Nodular opacity at the left lung base. Could be from nodular atelectasis although an infectious or inflammatory nodules within the differential. Neoplastic causes would be less common in a patient of this age but if the patient has risk factors it may be helpful to obtain a follow-up to ensure that this decreases in size to exclude neoplastic causes.[] Course & Med Decision Making Course & Med Decision Making Pertinent Labs and Imaging studies reviewed. (See chart for details) []Discussed lab and imaging findings with patient. Patient resting comfortably at this time. Early partial small bowel obstruction. Discussed case with hospitalist, Dr. Pang. Agrees to admission and further management of patient. Patient stable for admission. NG tube ordered. Attending, Dr. Lisa to follow placement imaging. General surgery consult placed. Dragon Disclaimer Dragon Disclaimer This electronic medical record was generated, in whole or in part, using a voice recognition dictation system. Departure Departure Impression: Primary Impression: Partial small bowel obstruction Disposition: ADMITTED INPATIENT Admitting Physician: Claudy Miranda Condition: STABLE Referrals: LELAND JOHNSTON (PCP) BINH ECHAVARRIA Feb 21, 2019 22:16
[2019-02-21] MEDS ORDERED: 0.9 % SOD CHL for STERILE FIELD 10 ML DISP.SYRIN. ONE (22:22)
[2019-02-21] MEDS ORDERED: HYDROmorphone 2 MG/ML VIAL IV ONE (22:30)
[2019-02-21] MEDS ORDERED: ONDANSETRON PF 4 MG/2 ML VIAL. IV ONE (22:30)
[2019-02-21 22:47] LABS: BASO % 0 % (0-3); EOS # 0.1 x10^3/uL (0.0-0.7); EOS % 1 % (0-3); HEMATOCRIT 45.8 % (36.0-47.0); HEMOGLOBIN 15.7 g/dL (12.0-15.5); LYMPH % 19 % (24-48); MEAN CORPUSCULAR HEMOGLOBIN 32 pg (25-35); MEAN CORPUSCULAR HGB CONC 34 g/dL (31-37); MEAN CORPUSCULAR VOLUME 92 fL (79-100); MONO # 0.6 x10^3/uL (0.0-1.1); MONO % 6 % (0-9); NEUT % 74 % (31-73); PLATELET COUNT 258 x10^3/uL (140-400); RED BLOOD COUNT 4.97 x10^6/uL (3.50-5.40); RED CELL DISTRIBUTION WIDTH 13.2 % (11.5-14.5); WHITE BLOOD COUNT 10.9 x10^3/uL (4.0-11.0)
[2019-02-21 22:54] LABS: CALCIUM 9.5 mg/dL (8.5-10.1); CREATININE 0.8 mg/dL (0.6-1.0); GFR 79.9; POTASSIUM 3.5 mmol/L (3.5-5.1)
[2019-02-21 23:00] LABS: ALBUMIN 4.1 g/dL (3.4-5.0); ALBUMIN/GLOBULIN RATIO 1.1 (1.0-1.7); TOTAL BILIRUBIN 0.6 mg/dL (0.2-1.0); TOTAL PROTEIN 7.9 g/dL (6.4-8.2)
[2019-02-21 23:17] LABS: BILIRUBIN,URINE SMALL (NEG); CLARITY,URINE CLOUDY; COLOR,URINE YELLOW; NITRITE,URINE NEGATIVE (NEG); PROTEIN,URINE NEGATIVE (NEG-TRACE); UROBILINOGEN,URINE 0.2 mg/dL (0.2 mg/dL)
[2019-02-21 23:28] LABS: BACTERIA,URINE MANY /HPF (0-FEW); HYALINE CASTS, URINE FEW /HPF; RBC,URINE RARE /HPF (0-2); SQUAMOUS EPITHELIAL CELL,UR MANY /LPF
--- NOTE | 2019-02-21 23:43 | RAD ---
INDICATION: ABD PAIN, VOMITING;HX CROHN'S COMPARISON: August 18, 2017 TECHNIQUE: Axial CT images obtained through the abdomen and pelvis without contrast. Limited assessment of solid organ structures and vasculature secondary to lack of intravenous contrast.. One or more of the following individualized dose reduction techniques were utilized for this examination: 1. Automated exposure control; 2. Adjustment of the mA and/or kV according to patient size; 3. Use of iterative reconstruction technique. FINDINGS: Nodular opacity at left lung base measuring up to 16mm. Abdominal aorta is not aneurysmal. Postcholecystectomy changes. Liver mildly prominent. No peripancreatic fluid collection. Low-density lesion of spleen which appears decreased in size compared to prior currently measures approximately 9 mm. High density exophytic lesion upper pole left kidney measuring approximately 16 mm. No left-sided hydronephrosis. Urinary bladder is partially distended. Left lower quadrant ostomy. No right-sided hydronephrosis. There are a few distended loops of small bowel identified. For example in the right upper pelvis measuring up to about 27 mm. Central possible high density lesion within the left kidney measuring up to 12 mm. Degenerative changes the spine. Multilevel central canal and neural foraminal stenosis. IMPRESSION: 1. Within the pelvis there is loops of small bowel that are mildly dilated. This is a mild finding however causes such as early partial small bowel obstruction would be difficult to exclude given this finding. Another possible cause would include enteritis including from infectious or inflammatory causes. 2. There is a couple of left renal lesions that appear higher than simple attenuation. Could be from proteinaceous cyst but a solid component is not excluded on this examination. 3. Nodular opacity at the left lung base. Could be from nodular atelectasis although an infectious or inflammatory nodules within the differential. Neoplastic causes would be less common in a patient of this age but if the patient has risk factors it may be helpful to obtain a follow-up to ensure that this decreases in size to exclude neoplastic causes. Electronically signed by: Dave Duvall MD (02/21/2019 11:40 PM) [facility]
[2019-02-22] VITALS (7 sets, daily range): BP systolic 107–143; BP diastolic 73–95
[2019-02-22] MEDS ORDERED: ONDANSETRON PF 4 MG/2 ML VIAL. IV ONE
[2019-02-22] MEDS ORDERED: ONDANSETRON PF 4 MG/2 ML VIAL. IV PRN
[2019-02-22] MEDS ORDERED: MORPHINE SULFATE 4 MG/ML VIAL. IV PRN
[2019-02-22] MEDS ORDERED: BENZOCAINE ONE 20% MUCOSAL SPRAY. MM (00:30)
--- NOTE | 2019-02-22 01:15 | NUR ---
The patient, MATTHEW HOLGUIN, 39 y/o, F admitted by OPAL FRIEDMAN MD, was given written information regarding hospital policies, unit procedures and contact persons. Patient was transported from ED to room 426 via wheelchair. RN performed a head to toe assessment at that time, VSS, and afebrile. Bed is in lowest locked position and call light is within reach. Valuables were checked and left with the patient in the room. RN will continue to monitor closely.
--- NOTE | 2019-02-22 01:15 | NUR ---
RN paged MD to get pain meds on board because patient has an allergy to morphine that was prescribed, orders were received and implemented at that time.
[2019-02-22] MEDS: HYDROmorphone 2 MG/ML VIAL IV PRN ×5 (01:51→20:28)
--- NOTE | 2019-02-22 05:40 | NUR ---
RN paged MD to request breakthrough pain meds and fluids on board, orders were received and implemented at that time.
[2019-02-22] MEDS ORDERED: IV NORMAL SALINE 1000ML BAG 1,000 ML IV SCH (06:00)
[2019-02-22] MEDS ORDERED: HYDROmorphone 2 MG/ML VIAL IV ONE ×2 (06:00)
--- NOTE | 2019-02-22 07:57 | RAD ---
AP view of the abdomen Clinical indications: NG tube placement. FINDINGS: Tip of an NG tube is seen within the proximal body of the stomach. The proximal port is seen within the gastric cardia. No air-filled dilatation of the stomach or large bowel or small bowel is seen. IMPRESSION: NG tube tip within the proximal body of the stomach. Electronically signed by: Christos Santos MD (02/22/2019 7:54 AM) [facility] [place]
--- NOTE | 2019-02-22 08:05 | NUR ---
RN called in routine consult to Dr. Domingo for partial small bowel obstruction.
--- NOTE | 2019-02-22 08:33 | PDOC2 ---
KERRIE VARELA DIRECTOR INDUSTRIAL NURSING 02/22/19 0833: CONSULT Date of Consult Date of Consult DATE: 02/22/19 TIME: 08:26 Reason for Consult Reason for Consult: SBO Referring Physician Referring Physician: ER Identification/Chief Complaint Chief Complaint abdominal pain Source Source: Chart review, Patient History of Present Illness Reason for Visit: 2 days of worsening abdominal pain, nausea and emesis. She has a longstanding hx of crohns, multiple surgeries, including resection, several ostomy revisions. Reports current stoma prolapses and causes partial obstruction at times. Last couple days with decreased ostomy output. Has not been on any crohns meds x 1 year, reports in remission on last scope Past Medical History Cardiovascular: No pertinent hx Pulmonary: No pertinent hx CENTRAL NERVOUS SYSTEM: Carpal Tunnel Syndrome GI: Other Heme/Onc: B12 deficiency Psych: No pertinent hx Musculoskeletal: low back pain Past Surgical History Past Surgical History: Appendectomy, Cholecystectomy, Hysterectomy, Colon Resection Family History Family History: Cancer Social History Lives: with Family Current Problem List Problem List Problems Medical Problems: (1) Partial small bowel obstruction Status: Acute Current Medications Current Medications Current Medications Hydromorphone HCl (Dilaudid) 0.5 mg 1X ONCE IV Last administered on 02/21/19at 22:47; Start 02/21/19 at 22:30; Stop 02/21/19 at 22:31; Status DC Ondansetron HCl (Zofran) 4 mg 1X ONCE IV Last administered on 02/21/19at 22:46 ; Start 02/21/19 at 22:30; Stop 02/21/19 at 22:31; Status DC Sodium Chloride (NORMAL SALINE FLUSH for STERILE FIELD) 10 ml imbookin (Pogby)-MED ONCE .ROUTE ; Start 02/21/19 at 22:22; Stop 02/21/19 at 22:23; Status DC Hydromorphone HCl (Dilaudid) 0.5 mg 1X ONCE IV Last administered on 02/22/19at 00:12; Start 02/22/19 at 00:00; Stop 02/22/19 at 00:01; Status DC Ondansetron HCl (Zofran) 4 mg 1X ONCE IV Last administered on 02/22/19at 00:12 ; Start 02/22/19 at 00:00; Stop 02/22/19 at 00:01; Status DC Ondansetron HCl (Zofran) 4 mg PRN Q8HRS PRN IV NAUSEA/VOMITING 1ST CHOICE Last administered on 02/22/19at 04:20; Start 02/22/19 at 00:00; Stop 02/22/19 at 23:59 Morphine Sulfate (Morphine Sulfate) 4 mg PRN Q2HR PRN IV SEVERE PAIN; Start 10/31 at 00:00; Stop 02/22/19 at 04:50; Status DC Benzocaine (Hurricaine One) 1 spray 1X ONCE MM Last administered on 02/22/19at 00:12; Start 02/22/19 at 00:30; Stop 02/22/19 at 00:31; Status DC Hydromorphone HCl (Dilaudid) 1.5 mg PRN Q6HRS PRN IV SEVERE PAIN Last administered on 02/22/19at 08:11; Start 02/22/19 at 01:30 Sodium Chloride 1,000 ml @ 125 mls/hr Q8H IV Last administered on 02/22/19at 06 :03; Start 02/22/19 at 06:00 Hydromorphone HCl (Dilaudid) 1 mg 1X ONCE IV Last administered on 02/22/19at 06 :02; Start 02/22/19 at 06:00; Stop 02/22/19 at 06:01; Status DC Active Scripts Active Reported Benadryl (Diphenhydramine Hcl) 25 Mg Capsule 25 Mg PO PRN Q4-6HRS PRN Zofran Odt (Ondansetron) 4 Mg Tab.rapdis 4 Mg PO BID PRN Biotin 10,000 Mcg Tab.rapdis 10,000 Mcg PO DAILY Simethicone 125 Mg Capsule 125 Mg PO DAILY Protonix (Pantoprazole Sodium) 40 Mg Tablet.dr 40 Mg PO DAILY Clonazepam 0.5 Mg Tablet 1 Tab PO BID PRN Buspirone Hcl 15 Mg Tablet 15 Mg PO BID Pyridium (Phenazopyridine Hcl) 200 Mg Tablet 200 Mg PO TID PRN Pantoprazole Sodium 40 Mg Tablet.dr 40 Mg PO DAILY Wellbutrin Xl (Bupropion Hcl) 300 Mg Tab.er.24h 300 Mg PO BID Clonazepam 1 Mg Tablet 1 Tab PO TID Allergies Allergies: Coded Allergies: Iodinated Contrast- Oral and IV Dye (Verified Allergy, Severe, Hives, 08/20) clindamycin (Verified Allergy, Severe, Hives, feeling of thickening of the throat, 08/25/14) morphine (Verified Allergy, Severe, Hives, 02/22/19) TOLERATE HYDROMORPHONE promethazine (Verified Allergy, Severe, ANAPHALAXIS, 08/23/14) amoxicillin (Verified Allergy, Intermediate, Cephalosporins OK, 08/21/17) fentanyl (Verified Allergy, Intermediate, 08/04/14) ketorolac (Verified Allergy, Intermediate, 02/22/19) metoclopramide (Verified Allergy, Intermediate, 08/04/14) ROS General: No: Chills, Other (fevers) PSYCHOLOGICAL ROS: YES: Anxiety; No: Depression Eyes: No Blurry vision, No Double vision HEENT: No: Heacaches, Sore Throat Hematological and Lymphatic: No: Bleeding Problems, Blood Clots Respiratory: No: Cough, Shortness of breath Cardiovascular: No Chest Pain, No Palpitations Gastrointestinal: Yes Other (see hpi) Genitourinary: No Dysuria, No Hematuria Neurological: No Confusion, No Impaired Coord/balance Skin: No Pruritus, No Rash Physical Exam General: Alert, Oriented X3, Cooperative, No acute distress HEENT: PERRLA, Mucous membr. moist/pink, Other (NG clear fluid) Lungs: Clear to auscultation, Normal air movement Heart: Regular rate, Normal S1, Normal S2, No murmurs Abdomen: Soft, Other (ND, TTP lower abdomen, scars present, ostomy ) Extremities: No clubbing, No cyanosis Skin: No rashes, No breakdown Neuro: Normal gait, Normal speech Psych/Mental Status: Mental status NL MUSCULOSKELETAL: No deformity, No swelling Vitals VITALS Vital Signs Date Time Temp Pulse Resp B/P (MAP) Pulse Ox O2 Delivery O2 Flow Rate FiO2 02/22/19 07:00 98.1 104 16 129/80 (96) 100 Room Air 98.1 Labs Labs Laboratory Tests Test 02/21/19 22:40 02/21/19 23:10 White Blood Count 10.9 x10^3/uL (4.0-11.0) Red Blood Count 4.97 x10^6/uL (3.50-5.40) Hemoglobin 15.7 g/dL (12.0-15.5) Hematocrit 45.8 % (36.0-47.0) Mean Corpuscular Volume 92 fL (79-100) Mean Corpuscular Hemoglobin 32 pg (25-35) Mean Corpuscular Hemoglobin Concent 34 g/dL (31-37) Red Cell Distribution Width 13.2 % (11.5-14.5) Platelet Count 258 x10^3/uL (140-400) Neutrophils (%) (Auto) 74 % (31-73) Lymphocytes (%) (Auto) 19 % (24-48) Monocytes (%) (Auto) 6 % (0-9) Eosinophils (%) (Auto) 1 % (0-3) Basophils (%) (Auto) 0 % (0-3) Neutrophils # (Auto) 8.0 x10^3uL (1.8-7.7) Lymphocytes # (Auto) 2.0 x10^3/uL (1.0-4.8) Monocytes # (Auto) 0.6 x10^3/uL (0.0-1.1) Eosinophils # (Auto) 0.1 x10^3/uL (0.0-0.7) Basophils # (Auto) 0.0 x10^3/uL (0.0-0.2) Sodium Level 137 mmol/L (136-145) Potassium Level 3.5 mmol/L (3.5-5.1) Chloride Level 99 mmol/L (98-107) Carbon Dioxide Level 27 mmol/L (21-32) Anion Gap 11 (6-14) Blood Urea Nitrogen 14 mg/dL (7-20) Creatinine 0.8 mg/dL (0.6-1.0) Estimated GFR (Cockcroft-Gault) 79.9 BUN/Creatinine Ratio 18 (6-20) Glucose Level 103 mg/dL (70-99) Calcium Level 9.5 mg/dL (8.5-10.1) Total Bilirubin 0.6 mg/dL (0.2-1.0) Aspartate Amino Transf (AST/SGOT) 24 U/L (15-37) Alanine Aminotransferase (ALT/SGPT) 32 U/L (14-59) Alkaline Phosphatase 106 U/L (46-116) Total Protein 7.9 g/dL (6.4-8.2) Albumin 4.1 g/dL (3.4-5.0) Albumin/Globulin Ratio 1.1 (1.0-1.7) Lipase 207 U/L (73-393) Urine Collection Type Void Urine Color Yellow Urine Clarity Cloudy Urine pH 6.0 Urine Specific [place] 1.020 Urine Protein Negative mg/dL (NEG-TRACE) Urine Glucose (UA) Negative mg/dL (NEG) Urine Ketones (Stick) Negative mg/dL (NEG) Urine Blood Large (NEG) Urine Nitrite Negative (NEG) Urine Bilirubin Small (NEG) Urine Urobilinogen Dipstick 0.2 mg/dL (0.2 mg/dL) Urine Leukocyte Esterase Moderate (NEG) Urine RBC Rare /HPF (0-2) Urine WBC 1-4 /HPF (0-4) Urine Squamous Epithelial Cells Many /LPF Urine Bacteria Many /HPF (0-FEW) Urine Hyaline Casts Few /HPF Urine Mucus Marked /LPF Laboratory Tests Test 02/21/19 22:40 02/21/19 23:10 White Blood Count 10.9 x10^3/uL (4.0-11.0) Red Blood Count 4.97 x10^6/uL (3.50-5.40) Hemoglobin 15.7 g/dL (12.0-15.5) Hematocrit 45.8 % (36.0-47.0) Mean Corpuscular Volume 92 fL (79-100) Mean Corpuscular Hemoglobin 32 pg (25-35) Mean Corpuscular Hemoglobin Concent 34 g/dL (31-37) Red Cell Distribution Width 13.2 % (11.5-14.5) Platelet Count 258 x10^3/uL (140-400) Neutrophils (%) (Auto) 74 % (31-73) Lymphocytes (%) (Auto) 19 % (24-48) Monocytes (%) (Auto) 6 % (0-9) Eosinophils (%) (Auto) 1 % (0-3) Basophils (%) (Auto) 0 % (0-3) Neutrophils # (Auto) 8.0 x10^3uL (1.8-7.7) Lymphocytes # (Auto) 2.0 x10^3/uL (1.0-4.8) Monocytes # (Auto) 0.6 x10^3/uL (0.0-1.1) Eosinophils # (Auto) 0.1 x10^3/uL (0.0-0.7) Basophils # (Auto) 0.0 x10^3/uL (0.0-0.2) Sodium Level 137 mmol/L (136-145) Potassium Level 3.5 mmol/L (3.5-5.1) Chloride Level 99 mmol/L (98-107) Carbon Dioxide Level 27 mmol/L (21-32) Anion Gap 11 (6-14) Blood Urea Nitrogen 14 mg/dL (7-20) Creatinine 0.8 mg/dL (0.6-1.0) Estimated GFR (Cockcroft-Gault) 79.9 BUN/Creatinine Ratio 18 (6-20) Glucose Level 103 mg/dL (70-99) Calcium Level 9.5 mg/dL (8.5-10.1) Total Bilirubin 0.6 mg/dL (0.2-1.0) Aspartate Amino Transf (AST/SGOT) 24 U/L (15-37) Alanine Aminotransferase (ALT/SGPT) 32 U/L (14-59) Alkaline Phosphatase 106 U/L (46-116) Total Protein 7.9 g/dL (6.4-8.2) Albumin 4.1 g/dL (3.4-5.0) Albumin/Globulin Ratio 1.1 (1.0-1.7) Lipase 207 U/L (73-393) Urine Collection Type Void Urine Color Yellow Urine Clarity Cloudy Urine pH 6.0 Urine Specific [place] 1.020 Urine Protein Negative mg/dL (NEG-TRACE) Urine Glucose (UA) Negative mg/dL (NEG) Urine Ketones (Stick) Negative mg/dL (NEG) Urine Blood Large (NEG) Urine Nitrite Negative (NEG) Urine Bilirubin Small (NEG) Urine Urobilinogen Dipstick 0.2 mg/dL (0.2 mg/dL) Urine Leukocyte Esterase Moderate (NEG) Urine RBC Rare /HPF (0-2) Urine WBC 1-4 /HPF (0-4) Urine Squamous Epithelial Cells Many /LPF Urine Bacteria Many /HPF (0-FEW) Urine Hyaline Casts Few /HPF Urine Mucus Marked /LPF Images Images IMPRESSION: 1. Within the pelvis there is loops of small bowel that are mildly dilated. This is a mild finding however causes such as early partial small bowel obstruction would be difficult to exclude given this finding. Another possible cause would include enteritis including from infectious or inflammatory causes. 2. There is a couple of left renal lesions that appear higher than simple attenuation. Could be from proteinaceous cyst but a solid component is not excluded on this examination. 3. Nodular opacity at the left lung base. Could be from nodular atelectasis although an infectious or inflammatory nodules within the differential. Neoplastic causes would be less common in a patient of this age but if the patient has risk factors it may be helpful to obtain a follow-up to ensure that this decreases in size to exclude neoplastic causes. Assessment/Plan Assessment/Plan sbo vs enteritis with hx will consult GI continue NG, bowel rest, hydration very poor surgical candidate with previous surgeries OPAL MAI MD 02/22/19 1105: CONSULT Assessment/Plan Assessment/Plan Patient seen and examined by me fairly uncomfortable. She complains of abdominal pain nausea. Past medical history of Crohn's disease with several abdominal operations multiple ileostomies with revision secondary to hernias. Abdomen is soft nondistended diffusely tender minimal ileostomy output she does have bowel sounds. NG output biliousness and copious. She's had multiple episodes of small bowel obstructions that resolved with conservative management and multiple time she's needed abdominal exploration. Agree with Braswell assessment and plan for conservative therapy at this time with bowel rest IV hydration NG suction. Hostile abdomen would hope to avoid any surgical intervention will follow KERRIE VARELA APRN Feb 22, 2019 08:33 OPAL MAI MD Feb 22, 2019 11:05
[2019-02-22] MEDS ORDERED: diphenhydrAMINE 50 MG/ML VIAL IVP PRN (09:45)
--- NOTE | 2019-02-22 10:29 | PDOC2 ---
GI CONSULT Reason For Consult: Crohn's, SBO HPI: HPI: 39 y/o female w/ complicated GI history including Crohn's and multiple abd surgeries. Ill x 1 week w/ decreased appetite and just not feeling well, then significant bilious emesis, increase in chronic abd pain (says around hernia at site of previous ostomy and around current ostomy), and decreased ostomy output. Thinks has lost 11 pounds during this time. Imaging concerning for possible SBO, now w/ NG. Last saw gastroenterology at ~1 year ago - reports EGD and scope through ileostomy were normal. There was consideration for Entyvio but this was ultimately not pursued because she was told her disease was in remission. Previously used Humira and Remicade - "stopped working," had flares of symptoms. Takes prednisone intermittently - has a supply at home, last used 5 months ago. On Protoni and Dilaudid TID, also B12 inj and PO iron. Mentions issues w/ stoma prolapse recently. PMH: PMH: Crohn's, depression/anxiety, urinary retention, chronic pain colectomy w/ ileostomy, small bowel resections, stoma reversals, cholecystectomy , hysterectomy, appendectomy Social History: Smoke: Quit ALCOHOL: none Drugs: None ROS: GEN: Denies fevers, chills, sweats HEENT: Denies blurred vision, sore throat CV: Denies chest pain RESP: Denies shortness of air, cough GI: Per HPI : Denies hematuria, dysuria ENDO: +weight loss NEURO: Denies confusion, dizziness MSK: Denies weakness, joint pain/swelling SKIN: +bruising Vitals: Vitals: Vital Signs Date Time Temp Pulse Resp B/P (MAP) Pulse Ox O2 Delivery O2 Flow Rate FiO2 02/22/19 08:00 Room Air 02/22/19 07:00 98.1 104 16 129/80 (96) 100 98.1 Labs: Labs: Laboratory Tests Test 02/21/19 22:40 02/21/19 23:10 White Blood Count 10.9 x10^3/uL (4.0-11.0) Red Blood Count 4.97 x10^6/uL (3.50-5.40) Hemoglobin 15.7 g/dL (12.0-15.5) Hematocrit 45.8 % (36.0-47.0) Mean Corpuscular Volume 92 fL (79-100) Mean Corpuscular Hemoglobin 32 pg (25-35) Mean Corpuscular Hemoglobin Concent 34 g/dL (31-37) Red Cell Distribution Width 13.2 % (11.5-14.5) Platelet Count 258 x10^3/uL (140-400) Neutrophils (%) (Auto) 74 % (31-73) Lymphocytes (%) (Auto) 19 % (24-48) Monocytes (%) (Auto) 6 % (0-9) Eosinophils (%) (Auto) 1 % (0-3) Basophils (%) (Auto) 0 % (0-3) Neutrophils # (Auto) 8.0 x10^3uL (1.8-7.7) Lymphocytes # (Auto) 2.0 x10^3/uL (1.0-4.8) Monocytes # (Auto) 0.6 x10^3/uL (0.0-1.1) Eosinophils # (Auto) 0.1 x10^3/uL (0.0-0.7) Basophils # (Auto) 0.0 x10^3/uL (0.0-0.2) Sodium Level 137 mmol/L (136-145) Potassium Level 3.5 mmol/L (3.5-5.1) Chloride Level 99 mmol/L (98-107) Carbon Dioxide Level 27 mmol/L (21-32) Anion Gap 11 (6-14) Blood Urea Nitrogen 14 mg/dL (7-20) Creatinine 0.8 mg/dL (0.6-1.0) Estimated GFR (Cockcroft-Gault) 79.9 BUN/Creatinine Ratio 18 (6-20) Glucose Level 103 mg/dL (70-99) Calcium Level 9.5 mg/dL (8.5-10.1) Total Bilirubin 0.6 mg/dL (0.2-1.0) Aspartate Amino Transf (AST/SGOT) 24 U/L (15-37) Alanine Aminotransferase (ALT/SGPT) 32 U/L (14-59) Alkaline Phosphatase 106 U/L (46-116) Total Protein 7.9 g/dL (6.4-8.2) Albumin 4.1 g/dL (3.4-5.0) Albumin/Globulin Ratio 1.1 (1.0-1.7) Lipase 207 U/L (73-393) Urine Collection Type Void Urine Color Yellow Urine Clarity Cloudy Urine pH 6.0 Urine Specific [place] 1.020 Urine Protein Negative mg/dL (NEG-TRACE) Urine Glucose (UA) Negative mg/dL (NEG) Urine Ketones (Stick) Negative mg/dL (NEG) Urine Blood Large (NEG) Urine Nitrite Negative (NEG) Urine Bilirubin Small (NEG) Urine Urobilinogen Dipstick 0.2 mg/dL (0.2 mg/dL) Urine Leukocyte Esterase Moderate (NEG) Urine RBC Rare /HPF (0-2) Urine WBC 1-4 /HPF (0-4) Urine Squamous Epithelial Cells Many /LPF Urine Bacteria Many /HPF (0-FEW) Urine Hyaline Casts Few /HPF Urine Mucus Marked /LPF Allergies: Coded Allergies: Iodinated Contrast- Oral and IV Dye (Verified Allergy, Severe, Hives, 08/20) clindamycin (Verified Allergy, Severe, Hives, feeling of thickening of the throat, 08/25/14) morphine (Verified Allergy, Severe, Hives, 02/22/19) TOLERATE HYDROMORPHONE promethazine (Verified Allergy, Severe, ANAPHALAXIS, 08/23/14) amoxicillin (Verified Allergy, Intermediate, Cephalosporins [place], 08/21/17) fentanyl (Verified Allergy, Intermediate, 08/04/14) ketorolac (Verified Allergy, Intermediate, 02/22/19) metoclopramide (Verified Allergy, Intermediate, 08/04/14) Medications: Current Medications Medications (Trade) Dose Ordered Sig/Jay Jay Route PRN Reason Start Time Stop Time Status Last Admin Dose Admin Hydromorphone HCl (Dilaudid) 0.5 mg 1X ONCE IV 02/21/19 22:30 02/21/19 22:31 DC 02/21/19 22:47 Ondansetron HCl (Zofran) 4 mg 1X ONCE IV 02/21/19 22:30 02/21/19 22:31 DC 02/21/19 22:46 Hydromorphone HCl (Dilaudid) 0.5 mg 1X ONCE IV 02/22/19 00:00 02/22/19 00:01 DC 02/22/19 00:12 Ondansetron HCl (Zofran) 4 mg 1X ONCE IV 02/22/19 00:00 02/22/19 00:01 DC 02/22/19 00:12 Ondansetron HCl (Zofran) 4 mg PRN Q8HRS PRN IV NAUSEA/VOMITING 1ST CHOICE 02/22/19 00:00 02/22/19 09:33 DC 02/22/19 04:20 Benzocaine (Hurricaine One) 1 spray 1X ONCE MM 02/22/19 00:30 02/22/19 00:31 DC 02/22/19 00:12 Hydromorphone HCl (Dilaudid) 1.5 mg PRN Q6HRS PRN IV SEVERE PAIN 02/22/19 01:30 02/22/19 08:11 Sodium Chloride 1,000 ml @ 125 mls/hr Q8H IV 02/22/19 06:00 02/22/19 09:33 DC 02/22/19 06:03 Hydromorphone HCl (Dilaudid) 1 mg 1X ONCE IV 02/22/19 06:00 02/22/19 06:01 DC 02/22/19 06:02 Imaging: Imaging: CT A/P FINDINGS: Nodular opacity at left lung base measuring up to 16mm. Abdominal aorta is not aneurysmal. Postcholecystectomy changes. Liver mildly prominent. No peripancreatic fluid collection. Low-density lesion of spleen which appears decreased in size compared to prior currently measures approximately 9 mm. High density exophytic lesion upper pole left kidney measuring approximately 16 mm. No left-sided hydronephrosis. Urinary bladder is partially distended. Left lower quadrant ostomy. No right-sided hydronephrosis. There are a few distended loops of small bowel identified. For example in the right upper pelvis measuring up to about 27 mm. Central possible high density lesion within the left kidney measuring up to 12 mm. Degenerative changes the spine. Multilevel central canal and neural foraminal stenosis. IMPRESSION: 1. Within the pelvis there is loops of small bowel that are mildly dilated. This is a mild finding however causes such as early partial small bowel obstruction would be difficult to exclude given this finding. Another possible cause would include enteritis including from infectious or inflammatory causes. 2. There is a couple of left renal lesions that appear higher than simple attenuation. Could be from proteinaceous cyst but a solid component is not excluded on this examination. 3. Nodular opacity at the left lung base. Could be from nodular atelectasis although an infectious or inflammatory nodules within the differential. Neoplastic causes would be less common in a patient of this age but if the patient has risk factors it may be helpful to obtain a follow-up to ensure that this decreases in size to exclude neoplastic causes. KUB IMPRESSION: NG tube tip within the proximal body of the stomach. PE: GEN: NAD HEENT: Atraumatic, PERRL - NG bilious LUNGS: CTAB HEART: RRR ABD: quiet, tender right lower periumbilical - significant around previous ostomy site, ostomy left periumbilical area w/ surrounding tenderness EXTREMITY: No edema SKIN: No rashes, no jaundice NEURO/PSYCH: A & O 3, tearful A/P: A/P: H/o Crohn's, multiple abd surgeries N/v, abd pain, decreased ostomy output, weight loss - concern for SBO/PSBO Chronic pain -- Continue NG, consider small bowel imaging at some point - will review w/ Dr. Burch. MARIA EUGENIA MO Feb 22, 2019 10:29
[2019-02-22] MEDS ORDERED: POTASSIUM CL 40MEQ D5-0.45NACL 1,000 ML IV ONE (10:30)
[2019-02-22] MEDS: ONDANSETRON PF 4 MG/2 ML VIAL. IV PRN ×2 (10:50→17:16)
--- NOTE | 2019-02-22 10:51 | NUR ---
SW following for discharge planning. Discussed with RN, pt is from home alone. Has significant GI hx. RN advised no SW needs at this time. SW will continue to follow.
[2019-02-22] MEDS: PANTOPRAZOLE IV PUSH 40 MG VIAL. IVP SCH (11:01)
--- NOTE | 2019-02-22 12:26 | PDOC1 ---
History and Physical Date of Admission Date of Admission DATE: 02/22/19 TIME: 12:23 Identification/Chief Complaint Chief Complaint abd pain Source Source: Caregiver, Chart review, Patient History of Present Illness History of Present Illness 39 year old female with very hostile abdominal area because of multiple abdominal surgeries, history of Crohn's, history of colostomy takedown ostomy etc. abdominal adhesion lysis, [employer] procedures. Comes in because of abdominal pain. She's very narcotic dependent and narc tolerant. On Dilaudid 1.5 mg every 4 at home. Crying despite 1.5 mg every 6hrs IV Dilaudid. Multiple calls already from RN because of patient complaining of pain CT scan: 1. Within the pelvis there is loops of small bowel that are mildly dilated. This is a mild finding however causes such as early partial small bowel obstruction would be difficult to exclude given this finding. Another possible cause would include enteritis including from infectious or inflammatory causes. 2. There is a couple of left renal lesions that appear higher than simple attenuation. Could be from proteinaceous cyst but a solid component is not excluded on this examination. 3. Nodular opacity at the left lung base. Could be from nodular atelectasis although an infectious or inflammatory nodules within the differential. Neoplastic causes would be less common in a patient of this age but if the patient has risk factors it may be helpful to obtain a follow-up to ensure that this decreases in size to exclude neoplastic causes. Past Medical History Cardiovascular: No pertinent hx Pulmonary: No pertinent hx CENTRAL NERVOUS SYSTEM: Carpal Tunnel Syndrome GI: Other Heme/Onc: B12 deficiency Psych: No pertinent hx Musculoskeletal: low back pain Past Surgical History Past Surgical History: Appendectomy, Cholecystectomy, Hysterectomy, Colon Resection Family History Family History: Cancer Social History Smoke: No ALCOHOL: none Drugs: None Current Problem List Problem List Problems Medical Problems: (1) Partial small bowel obstruction Status: Acute Current Medications Current Medications Current Medications Hydromorphone HCl (Dilaudid) 0.5 mg 1X ONCE IV Last administered on 02/21/19at 22:47; Start 02/21/19 at 22:30; Stop 02/21/19 at 22:31; Status DC Ondansetron HCl (Zofran) 4 mg 1X ONCE IV Last administered on 02/21/19at 22:46 ; Start 02/21/19 at 22:30; Stop 02/21/19 at 22:31; Status DC Sodium Chloride (NORMAL SALINE FLUSH for STERILE FIELD) 10 ml [place]-MED ONCE .ROUTE ; Start 02/21/19 at 22:22; Stop 02/21/19 at 22:23; Status DC Hydromorphone HCl (Dilaudid) 0.5 mg 1X ONCE IV Last administered on 02/22/19at 00:12; Start 02/22/19 at 00:00; Stop 02/22/19 at 00:01; Status DC Ondansetron HCl (Zofran) 4 mg 1X ONCE IV Last administered on 02/22/19at 00:12 ; Start 02/22/19 at 00:00; Stop 02/22/19 at 00:01; Status DC Ondansetron HCl (Zofran) 4 mg PRN Q8HRS PRN IV NAUSEA/VOMITING 1ST CHOICE Last administered on 02/22/19 04:20; Start 02/22/19 at 00:00; Stop 02/22/19 at 09:33 ; Status DC Morphine Sulfate (Morphine Sulfate) 4 mg PRN Q2HR PRN IV SEVERE PAIN; Start 10/31 at 00:00; Stop 02/22/19 at 04:50; Status DC Benzocaine (Hurricaine One) 1 spray 1X ONCE MM Last administered on 02/22/19at 00:12; Start 02/22/19 at 00:30; Stop 02/22/19 at 00:31; Status DC Hydromorphone HCl (Dilaudid) 1.5 mg PRN Q6HRS PRN IV SEVERE PAIN Last administered on 02/22/19at 08:11; Start 02/22/19 at 01:30 Sodium Chloride 1,000 ml @ 125 mls/hr Q8H IV Last administered on 02/22/19 06 :03; Start 02/22/19 at 06:00; Stop 02/22/19 at 09:33; Status DC Hydromorphone HCl (Dilaudid) 1 mg 1X ONCE IV Last administered on 02/22/19at 06 :02; Start 02/22/19 at 06:00; Stop 02/22/19 at 06:01; Status DC Ondansetron HCl (Zofran) 4 mg PRN Q6HRS PRN IV NAUSEA/VOMITING 1ST CHOICE Last administered on 02/22/19at 10:50; Start 02/22/19 at 09:45 Diphenhydramine HCl (Benadryl) 25 mg PRN QHS PRN IVP sleep; Start 02/22/19 at 09:45 Potassium Chloride/Dextrose/ Sod Cl 1,000 ml @ 100 mls/hr 1X ONCE IV Last administered on 02/22/19at 10:51; Start 02/22/19 at 10:30; Stop 02/22/19 at 20:29 Pantoprazole Sodium (PROTONIX VIAL for IV PUSH) 40 mg DAILYAC IVP Last administered on 02/22/19at 11:01; Start 02/22/19 at 11:30 Methylprednisolone Sodium Succinate (SOLU-Medrol 40MG VIAL) 20 mg Q12HR IV ; Start 02/22/19 at 12:00 Active Scripts Active Reported Benadryl (Diphenhydramine Hcl) 25 Mg Capsule 25 Mg PO PRN Q4-6HRS PRN Zofran Odt (Ondansetron) 4 Mg Tab.rapdis 4 Mg PO BID PRN Biotin 10,000 Mcg Tab.rapdis 10,000 Mcg PO DAILY Simethicone 125 Mg Capsule 125 Mg PO DAILY Protonix (Pantoprazole Sodium) 40 Mg Tablet.dr 40 Mg PO DAILY Clonazepam 0.5 Mg Tablet 1 Tab PO BID PRN Buspirone Hcl 15 Mg Tablet 15 Mg PO BID Pyridium (Phenazopyridine Hcl) 200 Mg Tablet 200 Mg PO TID PRN Pantoprazole Sodium 40 Mg Tablet.dr 40 Mg PO DAILY Wellbutrin Xl (Bupropion Hcl) 300 Mg Tab.er.24h 300 Mg PO BID Clonazepam 1 Mg Tablet 1 Tab PO TID Allergies Allergies: Coded Allergies: Iodinated Contrast- Oral and IV Dye (Verified Allergy, Severe, Hives, 08/20) clindamycin (Verified Allergy, Severe, Hives, feeling of thickening of the throat, 08/25/14) morphine (Verified Allergy, Severe, Hives, 02/22/19) TOLERATE HYDROMORPHONE promethazine (Verified Allergy, Severe, ANAPHALAXIS, 08/23/14) amoxicillin (Verified Allergy, Intermediate, Cephalosporins OK, 08/21/17) fentanyl (Verified Allergy, Intermediate, 08/04/14) ketorolac (Verified Allergy, Intermediate, 02/22/19) metoclopramide (Verified Allergy, Intermediate, 08/04/14) ROS Review of System limited as she is crying, focused on her pain medicine Physical Exam General: No acute distress, Other (crying) HEENT: Atraumatic, PERRLA, EOMI, Mucous membr. moist/pink Lungs: Clear to auscultation, Normal air movement Heart: S1S2, RRR, no thrills, no rubs, no gallops, no murmurs Cardiovascular: S1, S2 Breasts: Normal, Rt breast nml w/o mass, Lt breast nml w/o mass, Nipples normal Abdomen: Other (voluntary guarding, soft, element of symptom magnification, hypoactive bowel sounds, non acute abd) Rectal Exam: not examined PELVIC: Nml ext genitalia Extremities: No clubbing, No cyanosis, No edema, Normal pulses, No tenderness/ swelling Skin: No rashes, No breakdown, No significant lesion Neuro: Normal gait, Normal speech, Strength at 5/5 X4 ext, Normal tone, Sensation intact, Cranial nerves 3-12 NL, Reflexes 2+ Psych/Mental Status: Mental status NL, Mood NL Vitals Vitals Vital Signs Date Time Temp Pulse Resp B/P (MAP) Pulse Ox O2 Delivery O2 Flow Rate FiO2 02/22/19 11:00 98.1 110 16 114/83 (93) 95 Room Air 98.1 Labs Labs Laboratory Tests Test 02/21/19 22:40 02/21/19 23:10 White Blood Count 10.9 x10^3/uL (4.0-11.0) Red Blood Count 4.97 x10^6/uL (3.50-5.40) Hemoglobin 15.7 g/dL (12.0-15.5) Hematocrit 45.8 % (36.0-47.0) Mean Corpuscular Volume 92 fL (79-100) Mean Corpuscular Hemoglobin 32 pg (25-35) Mean Corpuscular Hemoglobin Concent 34 g/dL (31-37) Red Cell Distribution Width 13.2 % (11.5-14.5) Platelet Count 258 x10^3/uL (140-400) Neutrophils (%) (Auto) 74 % (31-73) Lymphocytes (%) (Auto) 19 % (24-48) Monocytes (%) (Auto) 6 % (0-9) Eosinophils (%) (Auto) 1 % (0-3) Basophils (%) (Auto) 0 % (0-3) Neutrophils # (Auto) 8.0 x10^3uL (1.8-7.7) Lymphocytes # (Auto) 2.0 x10^3/uL (1.0-4.8) Monocytes # (Auto) 0.6 x10^3/uL (0.0-1.1) Eosinophils # (Auto) 0.1 x10^3/uL (0.0-0.7) Basophils # (Auto) 0.0 x10^3/uL (0.0-0.2) Sodium Level 137 mmol/L (136-145) Potassium Level 3.5 mmol/L (3.5-5.1) Chloride Level 99 mmol/L (98-107) Carbon Dioxide Level 27 mmol/L (21-32) Anion Gap 11 (6-14) Blood Urea Nitrogen 14 mg/dL (7-20) Creatinine 0.8 mg/dL (0.6-1.0) Estimated GFR (Cockcroft-Gault) 79.9 BUN/Creatinine Ratio 18 (6-20) Glucose Level 103 mg/dL (70-99) Calcium Level 9.5 mg/dL (8.5-10.1) Total Bilirubin 0.6 mg/dL (0.2-1.0) Aspartate Amino Transf (AST/SGOT) 24 U/L (15-37) Alanine Aminotransferase (ALT/SGPT) 32 U/L (14-59) Alkaline Phosphatase 106 U/L (46-116) Total Protein 7.9 g/dL (6.4-8.2) Albumin 4.1 g/dL (3.4-5.0) Albumin/Globulin Ratio 1.1 (1.0-1.7) Lipase 207 U/L (73-393) Urine Collection Type Void Urine Color Yellow Urine Clarity Cloudy Urine pH 6.0 Urine Specific [place] 1.020 Urine Protein Negative mg/dL (NEG-TRACE) Urine Glucose (UA) Negative mg/dL (NEG) Urine Ketones (Stick) Negative mg/dL (NEG) Urine Blood Large (NEG) Urine Nitrite Negative (NEG) Urine Bilirubin Small (NEG) Urine Urobilinogen Dipstick 0.2 mg/dL (0.2 mg/dL) Urine Leukocyte Esterase Moderate (NEG) Urine RBC Rare /HPF (0-2) Urine WBC 1-4 /HPF (0-4) Urine Squamous Epithelial Cells Many /LPF Urine Bacteria Many /HPF (0-FEW) Urine Hyaline Casts Few /HPF Urine Mucus Marked /LPF Laboratory Tests Test 02/21/19 22:40 02/21/19 23:10 White Blood Count 10.9 x10^3/uL (4.0-11.0) Red Blood Count 4.97 x10^6/uL (3.50-5.40) Hemoglobin 15.7 g/dL (12.0-15.5) Hematocrit 45.8 % (36.0-47.0) Mean Corpuscular Volume 92 fL (79-100) Mean Corpuscular Hemoglobin 32 pg (25-35) Mean Corpuscular Hemoglobin Concent 34 g/dL (31-37) Red Cell Distribution Width 13.2 % (11.5-14.5) Platelet Count 258 x10^3/uL (140-400) Neutrophils (%) (Auto) 74 % (31-73) Lymphocytes (%) (Auto) 19 % (24-48) Monocytes (%) (Auto) 6 % (0-9) Eosinophils (%) (Auto) 1 % (0-3) Basophils (%) (Auto) 0 % (0-3) Neutrophils # (Auto) 8.0 x10^3uL (1.8-7.7) Lymphocytes # (Auto) 2.0 x10^3/uL (1.0-4.8) Monocytes # (Auto) 0.6 x10^3/uL (0.0-1.1) Eosinophils # (Auto) 0.1 x10^3/uL (0.0-0.7) Basophils # (Auto) 0.0 x10^3/uL (0.0-0.2) Sodium Level 137 mmol/L (136-145) Potassium Level 3.5 mmol/L (3.5-5.1) Chloride Level 99 mmol/L (98-107) Carbon Dioxide Level 27 mmol/L (21-32) Anion Gap 11 (6-14) Blood Urea Nitrogen 14 mg/dL (7-20) Creatinine 0.8 mg/dL (0.6-1.0) Estimated GFR (Cockcroft-Gault) 79.9 BUN/Creatinine Ratio 18 (6-20) Glucose Level 103 mg/dL (70-99) Calcium Level 9.5 mg/dL (8.5-10.1) Total Bilirubin 0.6 mg/dL (0.2-1.0) Aspartate Amino Transf (AST/SGOT) 24 U/L (15-37) Alanine Aminotransferase (ALT/SGPT) 32 U/L (14-59) Alkaline Phosphatase 106 U/L (46-116) Total Protein 7.9 g/dL (6.4-8.2) Albumin 4.1 g/dL (3.4-5.0) Albumin/Globulin Ratio 1.1 (1.0-1.7) Lipase 207 U/L (73-393) Urine Collection Type Void Urine Color Yellow Urine Clarity Cloudy Urine pH 6.0 Urine Specific [place] 1.020 Urine Protein Negative mg/dL (NEG-TRACE) Urine Glucose (UA) Negative mg/dL (NEG) Urine Ketones (Stick) Negative mg/dL (NEG) Urine Blood Large (NEG) Urine Nitrite Negative (NEG) Urine Bilirubin Small (NEG) Urine Urobilinogen Dipstick 0.2 mg/dL (0.2 mg/dL) Urine Leukocyte Esterase Moderate (NEG) Urine RBC Rare /HPF (0-2) Urine WBC 1-4 /HPF (0-4) Urine Squamous Epithelial Cells Many /LPF Urine Bacteria Many /HPF (0-FEW) Urine Hyaline Casts Few /HPF Urine Mucus Marked /LPF VTE Prophylaxis Ordered VTE Prophylaxis Devices: Yes VTE Pharmacological Prophylaxi: Yes Assessment/Plan Assessment/Plan H/o Crohn's, multiple abd surgeries N/v, abd pain, decreased ostomy output, weight loss - concern for SBO/PSBO Chronic pain PLAN: Increase Dilaudid to home dose every 4 hrs 1,5 mgs Multiple allergies including morphine and fentanyl Nothing by mouth NG tube Follow GI and gS BLAYNE Hawkins MD Feb 22, 2019 12:26
[2019-02-22] MEDS: methylPREDNISolone SOD SUCC PF 40 MG/ML VIAL. IV SCH ×2 (12:44→20:29)
[2019-02-22] MEDS: diphenhydrAMINE 50 MG/ML VIAL IVP PRN (18:39)
[2019-02-22] MEDS: IV NORMAL SALINE 1000ML BAG 1,000 ML IV SCH (21:33)
[2019-02-23] MEDS: HYDROmorphone 2 MG/ML VIAL IV PRN ×7 (00:34→23:14)
[2019-02-23] MEDS: diphenhydrAMINE 50 MG/ML VIAL IVP PRN ×4 (00:41→21:13)
[2019-02-23 03:00] VITALS: BP 121/86
[2019-02-23] MEDS: ONDANSETRON PF 4 MG/2 ML VIAL. IV PRN ×3 (04:50→21:09)
[2019-02-23] MEDS: PANTOPRAZOLE IV PUSH 40 MG VIAL. IVP SCH (06:24)
[2019-02-23 07:00] VITALS: BP 121/81
[2019-02-23] MEDS: IV NORMAL SALINE 1000ML BAG 1,000 ML IV SCH ×2 (08:38→18:00)
[2019-02-23] MEDS: methylPREDNISolone SOD SUCC PF 40 MG/ML VIAL. IV SCH ×2 (08:38→21:09)
--- NOTE | 2019-02-23 09:34 | PDOC ---
PROGRESS NOTES Chief Complaint Chief Complaint Assessment/Plan H/o Crohn's, multiple abd surgeries ( at least 20 x ex lap - mid umbilical scar) [place] left sided colostomy N/v, abd pain, decreased ostomy output, weight loss - concern for SBO/PSBO Chronic pain History of Present Illness History of Present Illness PAin better controlled with 1.25 IV Dilaudid every 4 along with Benadryl IV every 6 She's ambulating about NG output greater than 1000 last night and's 600 mL just this AM Plan: keep bowel rest, so far elytes Keep IVF while nothing by mouth PPI IV while NPO Keep current pain regimen-seems to be working May ambulate ad alycia. PLan for ostomy irrigation by GI ? - Monday probably Vitals Vitals Vital Signs Date Time Temp Pulse Resp B/P (MAP) Pulse Ox O2 Delivery O2 Flow Rate FiO2 02/23/19 08:37 Room Air 02/23/19 07:00 98.1 78 18 121/81 (94) 99 98.1 Physical Exam General: No acute distress, Other (crying) Heart: Regular rate, Normal S1, Normal S2, No murmurs Lungs: Clear Abdomen: Other (voluntary guarding, soft, element of symptom magnification, hypoactive bowel sounds, non acute abd) Extremities: No clubbing, No cyanosis, No edema, Normal pulses, No tenderness/ swelling Skin: No rashes, No breakdown, No significant lesion Review of Systems Review of Systems Abdominal pain, nausea but no emesis, no chest pain, no fever, no diarrhea Assessment and Plan Assessmemt and Plan Problems Medical Problems: (1) Partial small bowel obstruction Status: Acute Comment Review of Relevant I have reviewed the following items kathy (where applicable) has been applied. Labs Laboratory Tests Test 02/21/19 22:40 02/21/19 23:10 White Blood Count 10.9 x10^3/uL (4.0-11.0) Red Blood Count 4.97 x10^6/uL (3.50-5.40) Hemoglobin 15.7 g/dL (12.0-15.5) Hematocrit 45.8 % (36.0-47.0) Mean Corpuscular Volume 92 fL (79-100) Mean Corpuscular Hemoglobin 32 pg (25-35) Mean Corpuscular Hemoglobin Concent 34 g/dL (31-37) Red Cell Distribution Width 13.2 % (11.5-14.5) Platelet Count 258 x10^3/uL (140-400) Neutrophils (%) (Auto) 74 % (31-73) Lymphocytes (%) (Auto) 19 % (24-48) Monocytes (%) (Auto) 6 % (0-9) Eosinophils (%) (Auto) 1 % (0-3) Basophils (%) (Auto) 0 % (0-3) Neutrophils # (Auto) 8.0 x10^3uL (1.8-7.7) Lymphocytes # (Auto) 2.0 x10^3/uL (1.0-4.8) Monocytes # (Auto) 0.6 x10^3/uL (0.0-1.1) Eosinophils # (Auto) 0.1 x10^3/uL (0.0-0.7) Basophils # (Auto) 0.0 x10^3/uL (0.0-0.2) Sodium Level 137 mmol/L (136-145) Potassium Level 3.5 mmol/L (3.5-5.1) Chloride Level 99 mmol/L (98-107) Carbon Dioxide Level 27 mmol/L (21-32) Anion Gap 11 (6-14) Blood Urea Nitrogen 14 mg/dL (7-20) Creatinine 0.8 mg/dL (0.6-1.0) Estimated GFR (Cockcroft-Gault) 79.9 BUN/Creatinine Ratio 18 (6-20) Glucose Level 103 mg/dL (70-99) Calcium Level 9.5 mg/dL (8.5-10.1) Total Bilirubin 0.6 mg/dL (0.2-1.0) Aspartate Amino Transf (AST/SGOT) 24 U/L (15-37) Alanine Aminotransferase (ALT/SGPT) 32 U/L (14-59) Alkaline Phosphatase 106 U/L (46-116) Total Protein 7.9 g/dL (6.4-8.2) Albumin 4.1 g/dL (3.4-5.0) Albumin/Globulin Ratio 1.1 (1.0-1.7) Lipase 207 U/L (73-393) Urine Collection Type Void Urine Color Yellow Urine Clarity Cloudy Urine pH 6.0 Urine Specific [place] 1.020 Urine Protein Negative mg/dL (NEG-TRACE) Urine Glucose (UA) Negative mg/dL (NEG) Urine Ketones (Stick) Negative mg/dL (NEG) Urine Blood Large (NEG) Urine Nitrite Negative (NEG) Urine Bilirubin Small (NEG) Urine Urobilinogen Dipstick 0.2 mg/dL (0.2 mg/dL) Urine Leukocyte Esterase Moderate (NEG) Urine RBC Rare /HPF (0-2) Urine WBC 1-4 /HPF (0-4) Urine Squamous Epithelial Cells Many /LPF Urine Bacteria Many /HPF (0-FEW) Urine Hyaline Casts Few /HPF Urine Mucus Marked /LPF Medications Current Medications Hydromorphone HCl (Dilaudid) 0.5 mg 1X ONCE IV Last administered on 02/21/19at 22:47; Start 02/21/19 at 22:30; Stop 02/21/19 at 22:31; Status DC Ondansetron HCl (Zofran) 4 mg 1X ONCE IV Last administered on 02/21/19at 22:46 ; Start 02/21/19 at 22:30; Stop 02/21/19 at 22:31; Status DC Sodium Chloride (NORMAL SALINE FLUSH for STERILE FIELD) 10 ml [place]-MED ONCE .ROUTE ; Start 02/21/19 at 22:22; Stop 02/21/19 at 22:23; Status DC Hydromorphone HCl (Dilaudid) 0.5 mg 1X ONCE IV Last administered on 02/22/19at 00:12; Start 02/22/19 at 00:00; Stop 02/22/19 at 00:01; Status DC Ondansetron HCl (Zofran) 4 mg 1X ONCE IV Last administered on 02/22/19at 00:12 ; Start 02/22/19 at 00:00; Stop 02/22/19 at 00:01; Status DC Ondansetron HCl (Zofran) 4 mg PRN Q8HRS PRN IV NAUSEA/VOMITING 1ST CHOICE Last administered on 02/22/19at 04:20; Start 02/22/19 at 00:00; Stop 02/22/19 at 09:33 ; Status DC Morphine Sulfate (Morphine Sulfate) 4 mg PRN Q2HR PRN IV SEVERE PAIN; Start 10/31 at 00:00; Stop 02/22/19 at 04:50; Status DC Benzocaine (Hurricaine One) 1 spray 1X ONCE MM Last administered on 02/22/19 00:12; Start 02/22/19 at 00:30; Stop 02/22/19 at 00:31; Status DC Hydromorphone HCl (Dilaudid) 1.5 mg PRN Q6HRS PRN IV SEVERE PAIN Last administered on 02/22/19 08:11; Start 02/22/19 at 01:30; Stop 02/22/19 at 12:21 ; Status DC Sodium Chloride 1,000 ml @ 125 mls/hr Q8H IV Last administered on 02/22/19 06 :03; Start 02/22/19 at 06:00; Stop 02/22/19 at 09:33; Status DC Hydromorphone HCl (Dilaudid) 1 mg 1X ONCE IV Last administered on 02/22/19 06 :02; Start 02/22/19 at 06:00; Stop 02/22/19 at 06:01; Status DC Ondansetron HCl (Zofran) 4 mg PRN Q6HRS PRN IV NAUSEA/VOMITING 1ST CHOICE Last administered on 02/23/19 04:50; Start 02/22/19 at 09:45 Diphenhydramine HCl (Benadryl) 25 mg PRN QHS PRN IVP sleep Last administered on 02/22/19 12:45; Start 02/22/19 at 09:45; Stop 02/22/19 at 18:41; Status DC Potassium Chloride/Dextrose/ Sod Cl 1,000 ml @ 100 mls/hr 1X ONCE IV Last administered on 02/22/19at 10:51; Start 02/22/19 at 10:30; Stop 02/22/19 at 20:29 ; Status DC Pantoprazole Sodium (PROTONIX VIAL for IV PUSH) 40 mg DAILYAC IVP Last administered on 02/23/19 06:24; Start 02/22/19 at 11:30 Methylprednisolone Sodium Succinate (SOLU-Medrol 40MG VIAL) 20 mg Q12HR IV Last administered on 02/23/19 08:38; Start 02/22/19 at 12:00 Hydromorphone HCl (Dilaudid) 1.5 mg PRN Q4HRS PRN IV SEVERE PAIN Last administered on 02/23/19at 08:37; Start 02/22/19 at 12:30 Diphenhydramine HCl (Benadryl) 25 mg PRN Q6HRS PRN IVP ITCHING Last administered on 02/23/19at 08:40; Start 02/22/19 at 12:45 Sodium Chloride 1,000 ml @ 100 mls/hr Q10H IV Last administered on 02/23/19at 08:38; Start 02/22/19 at 22:00 Active Scripts Active Reported Benadryl (Diphenhydramine Hcl) 25 Mg Capsule 25 Mg PO PRN Q4-6HRS PRN Zofran Odt (Ondansetron) 4 Mg Tab.rapdis 4 Mg PO BID PRN Biotin 10,000 Mcg Tab.rapdis 10,000 Mcg PO DAILY Simethicone 125 Mg Capsule 125 Mg PO DAILY Protonix (Pantoprazole Sodium) 40 Mg Tablet.dr 40 Mg PO DAILY Clonazepam 0.5 Mg Tablet 1 Tab PO BID PRN Buspirone Hcl 15 Mg Tablet 15 Mg PO BID Pyridium (Phenazopyridine Hcl) 200 Mg Tablet 200 Mg PO TID PRN Pantoprazole Sodium 40 Mg Tablet.dr 40 Mg PO DAILY Wellbutrin Xl (Bupropion Hcl) 300 Mg Tab.er.24h 300 Mg PO BID Clonazepam 1 Mg Tablet 1 Tab PO TID Vitals/I & O Vital Sign - Last 24 Hours 02/22/19 02/22/19 02/22/19 02/22/19 11:00 15:00 19:00 19:53 Temp 98.1 97.7 98.5 98.1 97.7 98.5 Pulse 110 102 94 Resp 16 16 16 B/P (MAP) 114/83 (93) 129/94 (106) 125/86 (99) Pulse Ox 95 97 96 O2 Delivery Room Air Room Air Room Air Room Air 02/22/19 02/22/19 02/23/19 02/23/19 20:28 23:00 00:34 03:00 Temp 97.9 97.5 97.9 97.5 Pulse 77 91 Resp 18 18 B/P (MAP) 107/73 (84) 121/86 (98) Pulse Ox 98 98 O2 Delivery Room Air Room Air Room Air Room Air 02/23/19 02/23/19 02/23/19/13/19 04:47 05:17 07:00 08:37 Temp 98.1 98.1 Pulse 78 Resp 18 B/P (MAP) 121/81 (94) Pulse Ox 99 O2 Delivery Room Air Room Air Room Air Room Air Intake and Output 02/22/19 02/22/19 02/23/19 14:59 22:59 06:59 Intake Total 550 ml 0 ml 0 ml Output Total 800 ml 400 ml 1100 ml Balance -250 ml -400 ml -1100 ml BLAYNE DEY MD Feb 23, 2019 09:34
--- NOTE | 2019-02-23 09:50 | PDOC ---
SURGICAL PROGRESS NOTE Subjective Jose L for Dr Rhodes feels a little better today Vital Signs Vital Signs Date Time Temp Pulse Resp B/P (MAP) Pulse Ox O2 Delivery O2 Flow Rate FiO2 02/23/19 08:37 Room Air 02/23/19 07:00 98.1 78 18 121/81 (94) 99 98.1 I&O Intake and Output 02/23/19 07:00 Intake Total 550 ml Output Total 2300 ml Balance -1750 ml Intake Oral 0 ml IV Total 550 ml Output Gastric Drainage Total 2300 ml # Voids 5 lots of NG return PATIENT HAS A VEGAS: No General: Alert, No acute distress HEENT: Other (NG in place with bilious return) Abdomen: Soft, Other (mildly TTP) Labs Laboratory Tests Test 02/21/19 22:40 02/21/19 23:10 White Blood Count 10.9 x10^3/uL (4.0-11.0) Red Blood Count 4.97 x10^6/uL (3.50-5.40) Hemoglobin 15.7 g/dL (12.0-15.5) Hematocrit 45.8 % (36.0-47.0) Mean Corpuscular Volume 92 fL (79-100) Mean Corpuscular Hemoglobin 32 pg (25-35) Mean Corpuscular Hemoglobin Concent 34 g/dL (31-37) Red Cell Distribution Width 13.2 % (11.5-14.5) Platelet Count 258 x10^3/uL (140-400) Neutrophils (%) (Auto) 74 % (31-73) Lymphocytes (%) (Auto) 19 % (24-48) Monocytes (%) (Auto) 6 % (0-9) Eosinophils (%) (Auto) 1 % (0-3) Basophils (%) (Auto) 0 % (0-3) Neutrophils # (Auto) 8.0 x10^3uL (1.8-7.7) Lymphocytes # (Auto) 2.0 x10^3/uL (1.0-4.8) Monocytes # (Auto) 0.6 x10^3/uL (0.0-1.1) Eosinophils # (Auto) 0.1 x10^3/uL (0.0-0.7) Basophils # (Auto) 0.0 x10^3/uL (0.0-0.2) Sodium Level 137 mmol/L (136-145) Potassium Level 3.5 mmol/L (3.5-5.1) Chloride Level 99 mmol/L (98-107) Carbon Dioxide Level 27 mmol/L (21-32) Anion Gap 11 (6-14) Blood Urea Nitrogen 14 mg/dL (7-20) Creatinine 0.8 mg/dL (0.6-1.0) Estimated GFR (Cockcroft-Gault) 79.9 BUN/Creatinine Ratio 18 (6-20) Glucose Level 103 mg/dL (70-99) Calcium Level 9.5 mg/dL (8.5-10.1) Total Bilirubin 0.6 mg/dL (0.2-1.0) Aspartate Amino Transf (AST/SGOT) 24 U/L (15-37) Alanine Aminotransferase (ALT/SGPT) 32 U/L (14-59) Alkaline Phosphatase 106 U/L (46-116) Total Protein 7.9 g/dL (6.4-8.2) Albumin 4.1 g/dL (3.4-5.0) Albumin/Globulin Ratio 1.1 (1.0-1.7) Lipase 207 U/L (73-393) Urine Collection Type Void Urine Color Yellow Urine Clarity Cloudy Urine pH 6.0 Urine Specific [place] 1.020 Urine Protein Negative mg/dL (NEG-TRACE) Urine Glucose (UA) Negative mg/dL (NEG) Urine Ketones (Stick) Negative mg/dL (NEG) Urine Blood Large (NEG) Urine Nitrite Negative (NEG) Urine Bilirubin Small (NEG) Urine Urobilinogen Dipstick 0.2 mg/dL (0.2 mg/dL) Urine Leukocyte Esterase Moderate (NEG) Urine RBC Rare /HPF (0-2) Urine WBC 1-4 /HPF (0-4) Urine Squamous Epithelial Cells Many /LPF Urine Bacteria Many /HPF (0-FEW) Urine Hyaline Casts Few /HPF Urine Mucus Marked /LPF Problem List Problems Medical Problems: (1) Partial small bowel obstruction Status: Acute Assessment/Plan ileus/pSBO continue gut rest, NG TRINO JI MD Feb 23, 2019 09:50
[2019-02-23 11:00] VITALS: BP 113/82
--- NOTE | 2019-02-23 12:40 | PDOC ---
GI PROGRESS NOTES Date Date/Time DATE: 02/23/19 TIME: 12:36 Subjective Subjective NGT in place with significant output abd pain unchanged- describes 15 episodes of SBO over past 2 years- since stopping therapy- but unclear if any flare of active Crohns since last scope at 1 year ago were reported as negative Objective Vitals Vital Signs Date Time Temp Pulse Resp B/P (MAP) Pulse Ox O2 Delivery O2 Flow Rate FiO2 02/23/19 12:05 99 Room Air 02/23/19 08:37 Room Air 02/23/19 07:00 98.1 78 18 121/81 (94) 99 Room Air 98.1 02/23/19 04:47 Room Air 02/23/19 03:00 97.5 91 18 121/86 (98) 98 Room Air 97.5 02/23/19 00:34 Room Air 02/22/19 23:00 97.9 77 18 107/73 (84) 98 Room Air 97.9 02/22/19 20:28 Room Air 02/22/19 19:53 Room Air 02/22/19 19:00 98.5 94 16 125/86 (99) 96 Room Air 98.5 02/22/19 15:00 97.7 102 16 129/94 (106) 97 Room Air 97.7 Physical Exam Physical Exam alert chest- clear abd- soft but mildly distended- mildly tender few bowel sounds Assessment Assessment REcurrent bowel obstruction- likely adhesions but with complex history of Crohns, the possibility of recurrent active disease should be considered and will change oysterman treatment options Plan Plan NGT now- consider TPN if prolonged image small bowel next week as planned SANJU HENSON MD Feb 23, 2019 12:40
[2019-02-23 15:00] VITALS: BP 123/74
--- NOTE | 2019-02-23 18:04 | RAD ---
Supine abdomen. HISTORY: NG placement Supine view was taken of the abdomen. There is an NG tube in the stomach unchanged in position. Lung bases are clear. Patient's had a cholecystectomy. IMPRESSION: 1. NG tube in the stomach. Electronically signed by: Sin Lee MD (02/23/2019 6:02 PM) [id number]
[2019-02-23 19:00] VITALS: BP 123/84
[2019-02-23 23:00] VITALS: BP 122/80
[2019-02-24] MEDS: HYDROmorphone 2 MG/ML VIAL IV PRN ×7 (02:26→20:52)
[2019-02-24] MEDS: diphenhydrAMINE 50 MG/ML VIAL IVP PRN ×4 (02:33→20:49)
[2019-02-24] MEDS: ONDANSETRON PF 4 MG/2 ML VIAL. IV PRN ×4 (02:33→20:49)
--- NOTE | 2019-02-24 02:35 | NUR ---
Went in to give pt. pain medication and she started dry heaving. Pt. threw up light brown emesis. Pt. stated "it tastes like stool, not like I know what stool tastes like but it tastes like what my ostomy smells like." zofran was given. Emesis smelled like vomit to this nurse. Will continue to monitor for any changes.
[2019-02-24 02:45] VITALS: BP 125/81
--- NOTE | 2019-02-24 05:03 | NUR ---
Pt. refused lab work to be done this morning.
[2019-02-24] MEDS: IV NORMAL SALINE 1000ML BAG 1,000 ML IV SCH ×2 (05:26→14:22)
[2019-02-24] MEDS: PANTOPRAZOLE IV PUSH 40 MG VIAL. IVP SCH (05:26)
[2019-02-24 07:00] VITALS: BP 117/75
[2019-02-24] MEDS: methylPREDNISolone SOD SUCC PF 40 MG/ML VIAL. IV SCH ×2 (08:36→20:48)
[2019-02-24] MEDS ORDERED: PNV1TABL25 PO (09:05)
[2019-02-24] MEDS ORDERED: CHOL500016 PO (09:06)
[2019-02-24] MEDS ORDERED: VITAMIN B (09:06)
[2019-02-24] MEDS ORDERED: ferous sulfate PO (09:11)
[2019-02-24] MEDS ORDERED: DILAUDID PO (09:11)
--- NOTE | 2019-02-24 09:54 | PDOC ---
SURGICAL PROGRESS NOTE Subjective "rough night" Vital Signs Vital Signs Date Time Temp Pulse Resp B/P (MAP) Pulse Ox O2 Delivery O2 Flow Rate FiO2 02/24/19 08:36 20 Room Air 02/24/19 07:00 97.7 100 117/75 (89) 96 97.7 I&O Intake and Output 02/24/19 07:00 Output Total 900 ml Balance -900 ml Output Gastric Drainage Total 900 ml # Voids 6 PATIENT HAS A VEGAS: No General: Alert Heart: Other (NG in place with bile tinged output) Abdomen: Soft I have reviewed the following KUB from yesterday reviewed Problem List Problems Medical Problems: (1) Partial small bowel obstruction Status: Acute Assessment/Plan pSBO, ileus, enteritis continue NG no new surg recs TRINO JI MD Feb 24, 2019 09:54
[2019-02-24] MEDS ORDERED: CYANOCOBALAMIN (VITAMIN B-12) 1,000 MCG/ML VIAL IM STA (10:05)
--- NOTE | 2019-02-24 10:08 | PDOC ---
PROGRESS NOTES Chief Complaint Chief Complaint Assessment/Plan H/o Crohn's, multiple abd surgeries ( at least 20 x ex lap - mid umbilical scar) INdwellig left sided colostomy N/v, abd pain, decreased ostomy output, weight loss - concern for SBO/PSBO Chronic pain History of Present Illness History of Present Illness PAin better controlled with 1.25 IV Dilaudid every 4 along with Benadryl IV every 6 She's ambulating about NG output a lot (500cc already in 3 hrs) GS recommends TPN since nothing by mouth for a long time She is eager to go home She requests her long overdue B-12 IM shot Plan: 1000mcg B-12 IM shot today TPN per pharmacy-to run via her indwelling Port-A-Cath Bowel rest Asks about "special MVI" since she has crohn's etc when she discharges Vitals Vitals Vital Signs Date Time Temp Pulse Resp B/P (MAP) Pulse Ox O2 Delivery O2 Flow Rate FiO2 02/24/19 08:36 20 Room Air 02/24/19 07:00 97.7 100 117/75 (89) 96 97.7 Physical Exam General: Alert Heart: Other (NG in place with bile tinged output) Lungs: Clear Abdomen: Soft Extremities: No clubbing, No cyanosis, No edema, Normal pulses, No tenderness/ swelling Skin: No rashes, No breakdown, No significant lesion Review of Systems Review of Systems abd pain, bloating, nausea, bloated. the rest of ROS 14 point negative Assessment and Plan Assessmemt and Plan Problems Medical Problems: (1) Partial small bowel obstruction Status: Acute Comment Review of Relevant I have reviewed the following items kathy (where applicable) has been applied. Medications Current Medications Hydromorphone HCl (Dilaudid) 0.5 mg 1X ONCE IV Last administered on 02/21/19at 22:47; Start 02/21/19 at 22:30; Stop 02/21/19 at 22:31; Status DC Ondansetron HCl (Zofran) 4 mg 1X ONCE IV Last administered on 02/21/19at 22:46 ; Start 02/21/19 at 22:30; Stop 02/21/19 at 22:31; Status DC Sodium Chloride (NORMAL SALINE FLUSH for STERILE FIELD) 10 ml STK-MED ONCE .ROUTE ; Start 02/21/19 at 22:22; Stop 02/21/19 at 22:23; Status DC Hydromorphone HCl (Dilaudid) 0.5 mg 1X ONCE IV Last administered on 02/22/19at 00:12; Start 02/22/19 at 00:00; Stop 02/22/19 at 00:01; Status DC Ondansetron HCl (Zofran) 4 mg 1X ONCE IV Last administered on 02/22/19at 00:12 ; Start 02/22/19 at 00:00; Stop 02/22/19 at 00:01; Status DC Ondansetron HCl (Zofran) 4 mg PRN Q8HRS PRN IV NAUSEA/VOMITING 1ST CHOICE Last administered on 02/22/19at 04:20; Start 02/22/19 at 00:00; Stop 02/22/19 at 09:33 ; Status DC Morphine Sulfate (Morphine Sulfate) 4 mg PRN Q2HR PRN IV SEVERE PAIN; Start 10/31 at 00:00; Stop 02/22/19 at 04:50; Status DC Benzocaine (Hurricaine One) 1 spray 1X ONCE MM Last administered on 02/22/19at 00:12; Start 02/22/19 at 00:30; Stop 02/22/19 at 00:31; Status DC Hydromorphone HCl (Dilaudid) 1.5 mg PRN Q6HRS PRN IV SEVERE PAIN Last administered on 02/22/19at 08:11; Start 02/22/19 at 01:30; Stop 02/22/19 at 12:21 ; Status DC Sodium Chloride 1,000 ml @ 125 mls/hr Q8H IV Last administered on 02/22/19at 06 :03; Start 02/22/19 at 06:00; Stop 02/22/19 at 09:33; Status DC Hydromorphone HCl (Dilaudid) 1 mg 1X ONCE IV Last administered on 02/22/19at 06 :02; Start 02/22/19 at 06:00; Stop 02/22/19 at 06:01; Status DC Ondansetron HCl (Zofran) 4 mg PRN Q6HRS PRN IV NAUSEA/VOMITING 1ST CHOICE Last administered on 02/24/19at 08:37; Start 02/22/19 at 09:45 Diphenhydramine HCl (Benadryl) 25 mg PRN QHS PRN IVP sleep Last administered on 02/22/19 12:45; Start 02/22/19 at 09:45; Stop 02/22/19 at 18:41; Status DC Potassium Chloride/Dextrose/ Sod Cl 1,000 ml @ 100 mls/hr 1X ONCE IV Last administered on 02/22/19 10:51; Start 02/22/19 at 10:30; Stop 02/22/19 at 20:29 ; Status DC Pantoprazole Sodium (PROTONIX VIAL for IV PUSH) 40 mg DAILYAC IVP Last administered on 02/24/19 05:26; Start 02/22/19 at 11:30 Methylprednisolone Sodium Succinate (SOLU-Medrol 40MG VIAL) 20 mg Q12HR IV Last administered on 02/24/19 08:36; Start 02/22/19 at 12:00 Hydromorphone HCl (Dilaudid) 1.5 mg PRN Q4HRS PRN IV SEVERE PAIN Last administered on 02/23/19 21:12; Start 02/22/19 at 12:30; Stop 02/23/19 at 22:58 ; Status DC Diphenhydramine HCl (Benadryl) 25 mg PRN Q6HRS PRN IVP ITCHING Last administered on 02/24/19 08:37; Start 02/22/19 at 12:45 Sodium Chloride 1,000 ml @ 100 mls/hr Q10H IV Last administered on 02/24/19 05:26; Start 02/22/19 at 22:00 Levofloxacin/ Dextrose 100 ml @ 100 mls/hr Q24H IV Last administered on 21:07; Start 02/23/19 at 21:00 Hydromorphone HCl (Dilaudid) 2 mg PRN Q3HRS PRN IV SEVERE PAIN Last administered on 02/24/19 08:36; Start 02/23/19 at 22:55 Info (Tpn Per Pharmacy) 1 each PRN DAILY PRN MC SEE COMMENTS; Start 02/24/19 at 08:15 Active Scripts Active Reported [dilaudid liquid] 1.5 Mg PO PRN Q8HRS PRN [ferous sulfate] Mg PO DAILY [vitamin B12 inject.] MONTHLY Vitamin D3 (Cholecalciferol (Vitamin D3)) 5,000 Unit Tablet 5,000 Unit PO WEEKLY Tablet (Pnv Cmb#95/Ferrous Fumarate/Fa) 1 Each Tablet 1 Tab PO DAILY Benadryl (Diphenhydramine Hcl) 25 Mg Capsule 25 Mg PO PRN Q4-6HRS PRN Zofran Odt (Ondansetron) 4 Mg Tab.rapdis 4 Mg PO BID PRN Biotin 10,000 Mcg Tab.rapdis 10,000 Mcg PO DAILY Simethicone 125 Mg Capsule 125 Mg PO PRN DAILY PRN Pantoprazole Sodium 40 Mg Tablet.dr 40 Mg PO DAILY Clonazepam 1 Mg Tablet 1 Tab PO PRN BID PRN Vitals/I & O Vital Sign - Last 24 Hours 02/23/19 02/23/19 02/23/19 02/23/19 11:00 13:18 15:00 17:31 Temp 98.3 98.1 98.3 98.1 Pulse 84 89 Resp 18 20 B/P (MAP) 113/82 (92) 123/74 (90) Pulse Ox 100 99 100 100 O2 Delivery Room Air Room Air Room Air Room Air 02/23/19 02/23/19 02/23/19 02/23/19 18:06 19:00 20:00 21:12 Temp 98.4 98.4 Pulse 78 Resp 18 20 B/P (MAP) 123/84 (97) Pulse Ox 100 95 O2 Delivery Room Air Room Air Room Air 02/23/19 02/23/19 02/23/19 02/24/19 21:42 23:00 23:14 02:26 Temp 98.7 98.7 Pulse 81 Resp 18 18 20 22 B/P (MAP) 122/80 (94) Pulse Ox 96 O2 Delivery Room Air Room Air Room Air Room Air 02/24/19 02/24/19 02/24/19 02/24/19 02:45 05:27 05:57 07:00 Temp 97.6 97.7 97.6 97.7 Pulse 105 100 Resp 22 18 20 18 B/P (MAP) 125/81 (96) 117/75 (89) Pulse Ox 98 96 O2 Delivery Room Air Room Air Room Air Room Air 02/24/19 08:36 Resp 20 O2 Delivery Room Air Intake and Output 4/02/23/19 02/24/19 15:00 23:00 07:00 Output Total 500 ml 400 ml Balance -500 ml -400 ml BLAYNE DEY MD Feb 24, 2019 10:08
[2019-02-24 11:00] VITALS: BP 136/86
[2019-02-24 12:18] LABS: CALCIUM 8.2 mg/dL (8.5-10.1); GFR 61.7; POTASSIUM 4.1 mmol/L (3.5-5.1)
--- NOTE | 2019-02-24 12:40 | PDOC ---
GI PROGRESS NOTES Date Date/Time DATE: 02/24/19 TIME: 12:36 Subjective Subjective rough night- with one vomiting episode and increased pain/fullness- felt like NGT had pulled into esophagus- nurse -repositioned this morning and awaiting KUB little ostomy output- she asked about utililty of irrigation of ileostomy Objective Vitals Vital Signs Date Time Temp Pulse Resp B/P (MAP) Pulse Ox O2 Delivery O2 Flow Rate FiO2 02/24/19 12:07 20 Room Air 02/24/19 08:36 20 Room Air 02/24/19 07:00 97.7 100 18 117/75 (89) 96 Room Air 97.7 02/24/19 05:57 20 Room Air 02/24/19 05:27 18 Room Air 02/24/19 02:45 97.6 105 22 125/81 (96) 98 Room Air 97.6 02/24/19 02:26 22 Room Air 02/23/19 23:14 20 Room Air 02/23/19 23:00 98.7 81 18 122/80 (94) 96 Room Air 98.7 02/23/19 21:42 18 Room Air 02/23/19 21:12 20 Room Air 02/23/19 20:00 Room Air 02/23/19 19:00 98.4 78 18 123/84 (97) 95 Room Air 98.4 02/23/19 18:06 100 02/23/19 17:31 100 Room Air 02/23/19 15:00 98.1 89 20 123/74 (90) 100 Room Air 98.1 02/23/19 13:18 99 Room Air Labs Labs Laboratory Tests Test 02/24/19 11:50 Sodium Level 140 mmol/L (136-145) Potassium Level 4.1 mmol/L (3.5-5.1) Chloride Level 102 mmol/L (98-107) Carbon Dioxide Level 27 mmol/L (21-32) Anion Gap 11 (6-14) Blood Urea Nitrogen 11 mg/dL (7-20) Creatinine 1.0 mg/dL (0.6-1.0) Estimated GFR (Cockcroft-Gault) 61.7 Glucose Level 179 mg/dL (70-99) Calcium Level 8.2 mg/dL (8.5-10.1) C-Reactive Protein, Quantitative 0.9 mg/L (0-3.3) Triglycerides Level 47 mg/dL (0-150) Physical Exam Physical Exam alert chest- clear abd- soft but mildly distended- mildly tender few bowel sounds Assessment Assessment REcurrent bowel obstruction- likely adhesions but with complex history of Crohns, the possibility of recurrent active disease should be considered and will change assisted treatment options Plan Plan NGT now repositioned- check xray asked about irrigating ostomy- unlikely to be of help - output down due to obstruction- but not totally unreasonable if done carefully - consider TPN if prolonged image small bowel - either SBFT or enterography depending on clinical situation - next week planned SANJU HENSON MD Feb 24, 2019 12:40
--- NOTE | 2019-02-24 12:56 | RAD ---
Abdomen one view. HISTORY: NG tube placement Single view the abdomen shows an NG tube in the stomach in good position. Lung bases are clear. The patient's had a cholecystectomy. IMPRESSION: 1. NG tube in the stomach in good position. Electronically signed by: Sin Lee MD (02/24/2019 12:53 PM) [facility]
--- NOTE | 2019-02-24 13:10 | NUR ---
NG tube was no longer producing any gastric drainage. Air test sounded like tube was in the esophagus. Tube advanced 6-10 cm and KUB ordered. Tube now shows in correct position. Tube marked with tape since it appears that the clip dempsey can slowly allow tube to slip out of position. Dr Weller present and he resumed NG to low intermittent suction.
[2019-02-24 13:45] LABS: MAGNESIUM 1.7 mg/dL (1.8-2.4); PHOSPHORUS 2.1 mg/dL (2.6-4.7)
[2019-02-24] MEDS: TPN PER PHARMACY MC PRN (14:20)
--- NOTE | 2019-02-24 14:24 | NUR ---
Pharmacy TPN Dosing Note S: MATTHEW HOLGUIN is a 39 year old F Currently receiving Central Continuous TPN started 02/24/19 B:Pertinent PMH: Partial SBO. No oral intake for long period of time. Height: 5 feet, 7 inches Weight: 72.653542 kg Current diet: liquids LABS: Sodium: 140 Potassium: 4.1 Chloride: 102 Calcium: 8.2 Corrected Calcium: 8.12 Magnesium: 1.7 CO2: 27 SCr: 1.0 Glucose: 179 Albumin: 4.1 AST: 24 ALT: 32 TPN FORMULA: TPN TYPE: Central Continuous AMINO ACIDS: 60 gm DEXTROSE: 195 gm LIPIDS: 20 gm SODIUM CHLORIDE: 90 mEq POTASSIUM CHLORIDE: 50 mEq POTASSIUM PHOSPHATE: 16 mmol MAGNESIUM: 10 mEq CALCIUM: 10 mEq MULTIPLE VITAMIN: 10 ml TRACE ELEMENTS: 1ml ml(s) TPN PLAN: Start house formula TPN. Increase potassium phosphate to 16mMol due to low level of phosphate. Will keep an eye on Magnesium to make sure it increases when TPN starte. R: Begin TPN Will monitor electrolytes, glucose, and tolerance to TPN. Torsten Valenzuela, [facility], 02/24/19 [id number]
[2019-02-24 15:00] VITALS: BP 135/81
[2019-02-24 20:00] VITALS: BP 139/91
[2019-02-24] MEDS ORDERED: [UNRECOGNIZED DRUG - OTHER] IV SCH ×10 (22:00)
[2019-02-24] MEDS ORDERED: AMINO ACID IV SCH ×10 (22:00)
[2019-02-24] MEDS ORDERED: TOTAL PARENTERAL NUTRITION IV SCH ×10 (22:00)
[2019-02-24] MEDS ORDERED: DEXTROSE 70% IV SCH ×10 (22:00)
[2019-02-24 23:00] VITALS: BP 127/72
[2019-02-25] MEDS: IV NORMAL SALINE 1000ML BAG 1,000 ML IV SCH
[2019-02-25] MEDS: HYDROmorphone 2 MG/ML VIAL IV PRN ×8 (00:09→21:18)
--- NOTE | 2019-02-25 00:14 | NUR ---
TPN running. Did not see an order to run NS with TPN. Will verify with MD in the morning.
[2019-02-25] MEDS ORDERED: diphenhydrAMINE 50 MG/ML VIAL IVP ONE (02:00)
[2019-02-25 03:00] VITALS: BP 139/87
[2019-02-25] MEDS: ONDANSETRON PF 4 MG/2 ML VIAL. IV PRN ×4 (03:11→21:17)
[2019-02-25 05:58] LABS: BASO % 0 % (0-3); EOS % 0 % (0-3); HEMATOCRIT 35.6 % (36.0-47.0); HEMOGLOBIN 11.9 g/dL (12.0-15.5); LYMPH % 9 % (24-48); MEAN CORPUSCULAR HEMOGLOBIN 32 pg (25-35); MEAN CORPUSCULAR HGB CONC 33 g/dL (31-37); MEAN CORPUSCULAR VOLUME 95 fL (79-100); MONO # 0.5 x10^3/uL (0.0-1.1); MONO % 5 % (0-9); NEUT % 86 % (31-73); PLATELET COUNT 192 x10^3/uL (140-400); RED BLOOD COUNT 3.77 x10^6/uL (3.50-5.40); WHITE BLOOD COUNT 10.6 x10^3/uL (4.0-11.0)
[2019-02-25 06:11] LABS: CALCIUM 8.1 mg/dL (8.5-10.1); CREATININE 0.9 mg/dL (0.6-1.0); GFR 69.7; MAGNESIUM 1.6 mg/dL (1.8-2.4); PHOSPHORUS 3.2 mg/dL (2.6-4.7); POTASSIUM 3.9 mmol/L (3.5-5.1)
[2019-02-25] MEDS: PANTOPRAZOLE IV PUSH 40 MG VIAL. IVP SCH (06:17)
[2019-02-25 07:00] VITALS: BP 137/91
[2019-02-25 07:11] LABS: % LYMPHS 8 % (24-48); % MONOS 4 % (0-10); % SEGS 88 % (35-66); PLT ESTIMATE ADEQUATE (ADEQUATE)
--- NOTE | 2019-02-25 08:43 | PDOC ---
KERRIE VARELA EXTERNAL GRINDER TOOL 02/25/19 0843: SURGICAL PROGRESS NOTE Subjective no improvement still no ileostomy output worried about bruising to legs nausea, emesis, feels that NG is malpositioned Vital Signs Vital Signs Date Time Temp Pulse Resp B/P (MAP) Pulse Ox O2 Delivery O2 Flow Rate FiO2 02/25/19 07:00 97.6 71 16 137/91 (106) 94 Room Air 97.6 I&O Intake and Output 02/25/19 07:00 Intake Total 1100 ml Output Total 100 ml Balance 1000 ml IV Total 1100 ml Output Gastric Drainage Total 100 ml # Voids 6 General: Alert, Oriented X3, Cooperative, No acute distress HEENT: Other (ng in place) Abdomen: Soft, Other (distended, ostomy ) Labs Laboratory Tests Test 02/24/19 11:50 02/25/19 05:35 Erythrocyte Sedimentation Rate 4 (0-25) Sodium Level 140 mmol/L (136-145) 143 mmol/L (136-145) Potassium Level 4.1 mmol/L (3.5-5.1) 3.9 mmol/L (3.5-5.1) Chloride Level 102 mmol/L (98-107) 104 mmol/L (98-107) Carbon Dioxide Level 27 mmol/L (21-32) 31 mmol/L (21-32) Anion Gap 11 (6-14) 8 (6-14) Blood Urea Nitrogen 11 mg/dL (7-20) 9 mg/dL (7-20) Creatinine 1.0 mg/dL (0.6-1.0) 0.9 mg/dL (0.6-1.0) Estimated GFR (Cockcroft-Gault) 61.7 69.7 Glucose Level 179 mg/dL (70-99) 145 mg/dL (70-99) Calcium Level 8.2 mg/dL (8.5-10.1) 8.1 mg/dL (8.5-10.1) Phosphorus Level 2.1 mg/dL (2.6-4.7) 3.2 mg/dL (2.6-4.7) Magnesium Level 1.7 mg/dL (1.8-2.4) 1.6 mg/dL (1.8-2.4) C-Reactive Protein, Quantitative 0.9 mg/L (0-3.3) Triglycerides Level 47 mg/dL (0-150) White Blood Count 10.6 x10^3/uL (4.0-11.0) Red Blood Count 3.77 x10^6/uL (3.50-5.40) Hemoglobin 11.9 g/dL (12.0-15.5) Hematocrit 35.6 % (36.0-47.0) Mean Corpuscular Volume 95 fL (79-100) Mean Corpuscular Hemoglobin 32 pg (25-35) Mean Corpuscular Hemoglobin Concent 33 g/dL (31-37) Red Cell Distribution Width 13.0 % (11.5-14.5) Platelet Count 192 x10^3/uL (140-400) Neutrophils (%) (Auto) 86 % (31-73) Lymphocytes (%) (Auto) 9 % (24-48) Monocytes (%) (Auto) 5 % (0-9) Eosinophils (%) (Auto) 0 % (0-3) Basophils (%) (Auto) 0 % (0-3) Neutrophils # (Auto) 9.0 x10^3uL (1.8-7.7) Lymphocytes # (Auto) 1.0 x10^3/uL (1.0-4.8) Monocytes # (Auto) 0.5 x10^3/uL (0.0-1.1) Eosinophils # (Auto) 0.0 x10^3/uL (0.0-0.7) Basophils # (Auto) 0.0 x10^3/uL (0.0-0.2) Segmented Neutrophils % 88 % (35-66) Lymphocytes % 8 % (24-48) Monocytes % 4 % (0-10) Platelet Estimate Adequate (ADEQUATE) Laboratory Tests Test 02/24/19 11:50 02/25/19 05:35 Erythrocyte Sedimentation Rate 4 (0-25) Sodium Level 140 mmol/L (136-145) 143 mmol/L (136-145) Potassium Level 4.1 mmol/L (3.5-5.1) 3.9 mmol/L (3.5-5.1) Chloride Level 102 mmol/L (98-107) 104 mmol/L (98-107) Carbon Dioxide Level 27 mmol/L (21-32) 31 mmol/L (21-32) Anion Gap 11 (6-14) 8 (6-14) Blood Urea Nitrogen 11 mg/dL (7-20) 9 mg/dL (7-20) Creatinine 1.0 mg/dL (0.6-1.0) 0.9 mg/dL (0.6-1.0) Estimated GFR (Cockcroft-Gault) 61.7 69.7 Glucose Level 179 mg/dL (70-99) 145 mg/dL (70-99) Calcium Level 8.2 mg/dL (8.5-10.1) 8.1 mg/dL (8.5-10.1) Phosphorus Level 2.1 mg/dL (2.6-4.7) 3.2 mg/dL (2.6-4.7) Magnesium Level 1.7 mg/dL (1.8-2.4) 1.6 mg/dL (1.8-2.4) C-Reactive Protein, Quantitative 0.9 mg/L (0-3.3) Triglycerides Level 47 mg/dL (0-150) White Blood Count 10.6 x10^3/uL (4.0-11.0) Red Blood Count 3.77 x10^6/uL (3.50-5.40) Hemoglobin 11.9 g/dL (12.0-15.5) Hematocrit 35.6 % (36.0-47.0) Mean Corpuscular Volume 95 fL (79-100) Mean Corpuscular Hemoglobin 32 pg (25-35) Mean Corpuscular Hemoglobin Concent 33 g/dL (31-37) Red Cell Distribution Width 13.0 % (11.5-14.5) Platelet Count 192 x10^3/uL (140-400) Neutrophils (%) (Auto) 86 % (31-73) Lymphocytes (%) (Auto) 9 % (24-48) Monocytes (%) (Auto) 5 % (0-9) Eosinophils (%) (Auto) 0 % (0-3) Basophils (%) (Auto) 0 % (0-3) Neutrophils # (Auto) 9.0 x10^3uL (1.8-7.7) Lymphocytes # (Auto) 1.0 x10^3/uL (1.0-4.8) Monocytes # (Auto) 0.5 x10^3/uL (0.0-1.1) Eosinophils # (Auto) 0.0 x10^3/uL (0.0-0.7) Basophils # (Auto) 0.0 x10^3/uL (0.0-0.2) Segmented Neutrophils % 88 % (35-66) Lymphocytes % 8 % (24-48) Monocytes % 4 % (0-10) Platelet Estimate Adequate (ADEQUATE) Problem List Problems Medical Problems: (1) Partial small bowel obstruction Status: Acute Assessment/Plan no improvement over weekend reviewed GI notes possible SBFT vs enterography--will defer to GI continue TPN, bowel rest OPAL MAI MD 02/26/19 0826: SURGICAL PROGRESS NOTE Assessment/Plan No improvement. No ileostomy output. Agree with Siddhartha's assessment and plan. KERRIE VARELA EXTERNAL GRINDER TOOL Feb 25, 2019 08:43 OPAL MAI MD Feb 26, 2019 08:26
[2019-02-25] MEDS: methylPREDNISolone SOD SUCC PF 40 MG/ML VIAL. IV SCH ×2 (09:15→20:42)
[2019-02-25] MEDS: diphenhydrAMINE 50 MG/ML VIAL IVP PRN ×3 (09:16→21:18)
[2019-02-25 11:00] VITALS: BP 135/82
--- NOTE | 2019-02-25 11:26 | PDOC ---
PROGRESS NOTES Chief Complaint Chief Complaint Assessment/Plan H/o Crohn's, multiple abd surgeries ( at least 20 x ex lap - mid umbilical scar) Indwelling left sided colostomy N/v, abd pain, decreased ostomy output, weight loss - concern for SBO/PSBO Chronic pain History of Present Illness History of Present Illness PAin controlled and patient ambulating. patient concerned about bruising, labs stable however. She's ambulating about NG came out and replaced GS recommends TPN since nothing by mouth for a long time TPN per pharmacy-to run via her indwelling Port-A-Cath Bowel rest plan for SBFT vs enterography per GI. Vitals Vitals Vital Signs Date Time Temp Pulse Resp B/P (MAP) Pulse Ox O2 Delivery O2 Flow Rate FiO2 02/25/19 09:44 16 Room Air 02/25/19 07:00 97.6 71 137/91 (106) 94 97.6 Physical Exam General: Alert, Oriented X3, Cooperative, No acute distress Heart: Other (NG in place with bile tinged output) Lungs: Clear Abdomen: Soft, Other (distended, ostomy ) Extremities: No clubbing, No cyanosis, No edema, Normal pulses, No tenderness/ swelling Skin: No rashes, No breakdown, No significant lesion Labs LABS Laboratory Tests Test 02/24/19 11:50 02/25/19 05:35 Erythrocyte Sedimentation Rate 4 (0-25) Sodium Level 140 mmol/L (136-145) 143 mmol/L (136-145) Potassium Level 4.1 mmol/L (3.5-5.1) 3.9 mmol/L (3.5-5.1) Chloride Level 102 mmol/L (98-107) 104 mmol/L (98-107) Carbon Dioxide Level 27 mmol/L (21-32) 31 mmol/L (21-32) Anion Gap 11 (6-14) 8 (6-14) Blood Urea Nitrogen 11 mg/dL (7-20) 9 mg/dL (7-20) Creatinine 1.0 mg/dL (0.6-1.0) 0.9 mg/dL (0.6-1.0) Estimated GFR (Cockcroft-Gault) 61.7 69.7 Glucose Level 179 mg/dL (70-99) 145 mg/dL (70-99) Calcium Level 8.2 mg/dL (8.5-10.1) 8.1 mg/dL (8.5-10.1) Phosphorus Level 2.1 mg/dL (2.6-4.7) 3.2 mg/dL (2.6-4.7) Magnesium Level 1.7 mg/dL (1.8-2.4) 1.6 mg/dL (1.8-2.4) C-Reactive Protein, Quantitative 0.9 mg/L (0-3.3) Triglycerides Level 47 mg/dL (0-150) White Blood Count 10.6 x10^3/uL (4.0-11.0) Red Blood Count 3.77 x10^6/uL (3.50-5.40) Hemoglobin 11.9 g/dL (12.0-15.5) Hematocrit 35.6 % (36.0-47.0) Mean Corpuscular Volume 95 fL (79-100) Mean Corpuscular Hemoglobin 32 pg (25-35) Mean Corpuscular Hemoglobin Concent 33 g/dL (31-37) Red Cell Distribution Width 13.0 % (11.5-14.5) Platelet Count 192 x10^3/uL (140-400) Neutrophils (%) (Auto) 86 % (31-73) Lymphocytes (%) (Auto) 9 % (24-48) Monocytes (%) (Auto) 5 % (0-9) Eosinophils (%) (Auto) 0 % (0-3) Basophils (%) (Auto) 0 % (0-3) Neutrophils # (Auto) 9.0 x10^3uL (1.8-7.7) Lymphocytes # (Auto) 1.0 x10^3/uL (1.0-4.8) Monocytes # (Auto) 0.5 x10^3/uL (0.0-1.1) Eosinophils # (Auto) 0.0 x10^3/uL (0.0-0.7) Basophils # (Auto) 0.0 x10^3/uL (0.0-0.2) Segmented Neutrophils % 88 % (35-66) Lymphocytes % 8 % (24-48) Monocytes % 4 % (0-10) Platelet Estimate Adequate (ADEQUATE) Assessment and Plan Assessmemt and Plan Problems Medical Problems: (1) Partial small bowel obstruction Status: Acute Comment Review of Relevant I have reviewed the following items kathy (where applicable) has been applied. Labs Laboratory Tests Test 02/24/19 11:50 02/25/19 05:35 Erythrocyte Sedimentation Rate 4 (0-25) Sodium Level 140 mmol/L (136-145) 143 mmol/L (136-145) Potassium Level 4.1 mmol/L (3.5-5.1) 3.9 mmol/L (3.5-5.1) Chloride Level 102 mmol/L (98-107) 104 mmol/L (98-107) Carbon Dioxide Level 27 mmol/L (21-32) 31 mmol/L (21-32) Anion Gap 11 (6-14) 8 (6-14) Blood Urea Nitrogen 11 mg/dL (7-20) 9 mg/dL (7-20) Creatinine 1.0 mg/dL (0.6-1.0) 0.9 mg/dL (0.6-1.0) Estimated GFR (Cockcroft-Gault) 61.7 69.7 Glucose Level 179 mg/dL (70-99) 145 mg/dL (70-99) Calcium Level 8.2 mg/dL (8.5-10.1) 8.1 mg/dL (8.5-10.1) Phosphorus Level 2.1 mg/dL (2.6-4.7) 3.2 mg/dL (2.6-4.7) Magnesium Level 1.7 mg/dL (1.8-2.4) 1.6 mg/dL (1.8-2.4) C-Reactive Protein, Quantitative 0.9 mg/L (0-3.3) Triglycerides Level 47 mg/dL (0-150) White Blood Count 10.6 x10^3/uL (4.0-11.0) Red Blood Count 3.77 x10^6/uL (3.50-5.40) Hemoglobin 11.9 g/dL (12.0-15.5) Hematocrit 35.6 % (36.0-47.0) Mean Corpuscular Volume 95 fL (79-100) Mean Corpuscular Hemoglobin 32 pg (25-35) Mean Corpuscular Hemoglobin Concent 33 g/dL (31-37) Red Cell Distribution Width 13.0 % (11.5-14.5) Platelet Count 192 x10^3/uL (140-400) Neutrophils (%) (Auto) 86 % (31-73) Lymphocytes (%) (Auto) 9 % (24-48) Monocytes (%) (Auto) 5 % (0-9) Eosinophils (%) (Auto) 0 % (0-3) Basophils (%) (Auto) 0 % (0-3) Neutrophils # (Auto) 9.0 x10^3uL (1.8-7.7) Lymphocytes # (Auto) 1.0 x10^3/uL (1.0-4.8) Monocytes # (Auto) 0.5 x10^3/uL (0.0-1.1) Eosinophils # (Auto) 0.0 x10^3/uL (0.0-0.7) Basophils # (Auto) 0.0 x10^3/uL (0.0-0.2) Segmented Neutrophils % 88 % (35-66) Lymphocytes % 8 % (24-48) Monocytes % 4 % (0-10) Platelet Estimate Adequate (ADEQUATE) Laboratory Tests Test 02/24/19 11:50 02/25/19 05:35 Erythrocyte Sedimentation Rate 4 (0-25) Sodium Level 140 mmol/L (136-145) 143 mmol/L (136-145) Potassium Level 4.1 mmol/L (3.5-5.1) 3.9 mmol/L (3.5-5.1) Chloride Level 102 mmol/L (98-107) 104 mmol/L (98-107) Carbon Dioxide Level 27 mmol/L (21-32) 31 mmol/L (21-32) Anion Gap 11 (6-14) 8 (6-14) Blood Urea Nitrogen 11 mg/dL (7-20) 9 mg/dL (7-20) Creatinine 1.0 mg/dL (0.6-1.0) 0.9 mg/dL (0.6-1.0) Estimated GFR (Cockcroft-Gault) 61.7 69.7 Glucose Level 179 mg/dL (70-99) 145 mg/dL (70-99) Calcium Level 8.2 mg/dL (8.5-10.1) 8.1 mg/dL (8.5-10.1) Phosphorus Level 2.1 mg/dL (2.6-4.7) 3.2 mg/dL (2.6-4.7) Magnesium Level 1.7 mg/dL (1.8-2.4) 1.6 mg/dL (1.8-2.4) C-Reactive Protein, Quantitative 0.9 mg/L (0-3.3) Triglycerides Level 47 mg/dL (0-150) White Blood Count 10.6 x10^3/uL (4.0-11.0) Red Blood Count 3.77 x10^6/uL (3.50-5.40) Hemoglobin 11.9 g/dL (12.0-15.5) Hematocrit 35.6 % (36.0-47.0) Mean Corpuscular Volume 95 fL (79-100) Mean Corpuscular Hemoglobin 32 pg (25-35) Mean Corpuscular Hemoglobin Concent 33 g/dL (31-37) Red Cell Distribution Width 13.0 % (11.5-14.5) Platelet Count 192 x10^3/uL (140-400) Neutrophils (%) (Auto) 86 % (31-73) Lymphocytes (%) (Auto) 9 % (24-48) Monocytes (%) (Auto) 5 % (0-9) Eosinophils (%) (Auto) 0 % (0-3) Basophils (%) (Auto) 0 % (0-3) Neutrophils # (Auto) 9.0 x10^3uL (1.8-7.7) Lymphocytes # (Auto) 1.0 x10^3/uL (1.0-4.8) Monocytes # (Auto) 0.5 x10^3/uL (0.0-1.1) Eosinophils # (Auto) 0.0 x10^3/uL (0.0-0.7) Basophils # (Auto) 0.0 x10^3/uL (0.0-0.2) Segmented Neutrophils % 88 % (35-66) Lymphocytes % 8 % (24-48) Monocytes % 4 % (0-10) Platelet Estimate Adequate (ADEQUATE) Medications Current Medications Hydromorphone HCl (Dilaudid) 0.5 mg 1X ONCE IV Last administered on 02/21/19at 22:47; Start 02/21/19 at 22:30; Stop 02/21/19 at 22:31; Status DC Ondansetron HCl (Zofran) 4 mg 1X ONCE IV Last administered on 02/21/19at 22:46 ; Start 02/21/19 at 22:30; Stop 02/21/19 at 22:31; Status DC Sodium Chloride (NORMAL SALINE FLUSH for STERILE FIELD) 10 ml STK-MED ONCE .ROUTE ; Start 02/21/19 at 22:22; Stop 02/21/19 at 22:23; Status DC Hydromorphone HCl (Dilaudid) 0.5 mg 1X ONCE IV Last administered on 02/22/19at 00:12; Start 02/22/19 at 00:00; Stop 02/22/19 at 00:01; Status DC Ondansetron HCl (Zofran) 4 mg 1X ONCE IV Last administered on 02/22/19at 00:12 ; Start 02/22/19 at 00:00; Stop 02/22/19 at 00:01; Status DC Ondansetron HCl (Zofran) 4 mg PRN Q8HRS PRN IV NAUSEA/VOMITING 1ST CHOICE Last administered on 02/22/19at 04:20; Start 02/22/19 at 00:00; Stop 02/22/19 at 09:33 ; Status DC Morphine Sulfate (Morphine Sulfate) 4 mg PRN Q2HR PRN IV SEVERE PAIN; Start 10/31 at 00:00; Stop 02/22/19 at 04:50; Status DC Benzocaine (Hurricaine One) 1 spray 1X ONCE MM Last administered on 02/22/19at 00:12; Start 02/22/19 at 00:30; Stop 02/22/19 at 00:31; Status DC Hydromorphone HCl (Dilaudid) 1.5 mg PRN Q6HRS PRN IV SEVERE PAIN Last administered on 02/22/19at 08:11; Start 02/22/19 at 01:30; Stop 02/22/19 at 12:21 ; Status DC Sodium Chloride 1,000 ml @ 125 mls/hr Q8H IV Last administered on 02/22/19at 06 :03; Start 02/22/19 at 06:00; Stop 02/22/19 at 09:33; Status DC Hydromorphone HCl (Dilaudid) 1 mg 1X ONCE IV Last administered on 02/22/19 06 :02; Start 02/22/19 at 06:00; Stop 02/22/19 at 06:01; Status DC Ondansetron HCl (Zofran) 4 mg PRN Q6HRS PRN IV NAUSEA/VOMITING 1ST CHOICE Last administered on 02/25/19 09:14; Start 02/22/19 at 09:45 Diphenhydramine HCl (Benadryl) 25 mg PRN QHS PRN IVP sleep Last administered on 02/22/19 12:45; Start 02/22/19 at 09:45; Stop 02/22/19 at 18:41; Status DC Potassium Chloride/Dextrose/ Sod Cl 1,000 ml @ 100 mls/hr 1X ONCE IV Last administered on 02/22/19 10:51; Start 02/22/19 at 10:30; Stop 02/22/19 at 20:29 ; Status DC Pantoprazole Sodium (PROTONIX VIAL for IV PUSH) 40 mg DAILYAC IVP Last administered on 02/25/19 06:17; Start 02/22/19 at 11:30 Methylprednisolone Sodium Succinate (SOLU-Medrol 40MG VIAL) 20 mg Q12HR IV Last administered on 02/25/19 09:15; Start 02/22/19 at 12:00 Hydromorphone HCl (Dilaudid) 1.5 mg PRN Q4HRS PRN IV SEVERE PAIN Last administered on 02/23/19 21:12; Start 02/22/19 at 12:30; Stop 02/23/19 at 22:58 ; Status DC Diphenhydramine HCl (Benadryl) 25 mg PRN Q6HRS PRN IVP ITCHING Last administered on 02/25/19 09:16; Start 02/22/19 at 12:45 Sodium Chloride 1,000 ml @ 100 mls/hr Q10H IV Last administered on 02/24/19 14:22; Start 02/22/19 at 22:00; Stop 02/25/19 at 10:25; Status DC Levofloxacin/ Dextrose 100 ml @ 100 mls/hr Q24H IV Last administered on 20:49; Start 02/23/19 at 21:00 Hydromorphone HCl (Dilaudid) 2 mg PRN Q3HRS PRN IV SEVERE PAIN Last administered on 02/25/19at 09:14; Start 02/23/19 at 22:55 Info (Tpn Per Pharmacy) 1 each PRN DAILY PRN MC SEE COMMENTS Last administered on 02/24/19at 14:20; Start 02/24/19 at 08:15 Cyanocobalamin (Vitamin B-12) 1,000 mcg 1X STAT IM Last administered on at 12:06; Start 02/24/19 at 10:05; Stop 02/24/19 at 10:08; Status DC Sodium Chloride 90 meq/Potassium Chloride 50 meq/ Potassium Phosphate 16 mmol/ Magnesium Sulfate 10 meq/Calcium Gluconate 10 meq/ Multivitamins 10 ml/Chromium / Copper/Manganese/ Seleni/Zn 1 ml/ Total Parenteral Nutrition/Amino Acids/ Dextrose/ Fat Emulsion Intravenous 1,512 ml @ 63 mls/hr TPN CONT IV Last administered on 02/24/19at 22:25; Start 02/24/19 at 22:00; Stop 02/25/19 at 21:59 Diphenhydramine HCl (Benadryl) 50 mg 1X ONCE IVP Last administered on at 02:16; Start 02/25/19 at 02:00; Stop 02/25/19 at 02:01; Status DC Active Scripts Active Reported [dilaudid liquid] 1.5 Mg PO PRN Q8HRS PRN [ferous sulfate] Mg PO DAILY [vitamin B12 inject.] MONTHLY Vitamin D3 (Cholecalciferol (Vitamin D3)) 5,000 Unit Tablet 5,000 Unit PO WEEKLY Tablet (Pnv Cmb#95/Ferrous Fumarate/Fa) 1 Each Tablet 1 Tab PO DAILY Benadryl (Diphenhydramine Hcl) 25 Mg Capsule 25 Mg PO PRN Q4-6HRS PRN Zofran Odt (Ondansetron) 4 Mg Tab.rapdis 4 Mg PO BID PRN Biotin 10,000 Mcg Tab.rapdis 10,000 Mcg PO DAILY Simethicone 125 Mg Capsule 125 Mg PO PRN DAILY PRN Pantoprazole Sodium 40 Mg Tablet.dr 40 Mg PO DAILY Clonazepam 1 Mg Tablet 1 Tab PO PRN BID PRN Vitals/I & O Vital Sign - Last 24 Hours 4/02/24/19 02/24/19 02/24/19 12:07 15:00 15:05 17:49 Temp 98.3 98.3 Pulse 101 Resp 20 18 20 B/P (MAP) 135/81 (99) Pulse Ox 98 O2 Delivery Room Air Room Air Room Air Room Air 02/24/19 02/24/19 02/24/19 02/24/19 20:00 20:00 20:52 23:00 Temp 98.1 97.5 98.1 97.5 Pulse 98 72 Resp 18 20 18 B/P (MAP) 139/91 (107) 127/72 (90) Pulse Ox 96 95 O2 Delivery Room Air Room Air Room Air Room Air 02/25/19 02/25/19 02/25/19 02/25/19 00:09 03:00 03:12 06:18 Temp 97.7 97.7 Pulse 80 Resp 18 18 20 18 B/P (MAP) 139/87 (104) Pulse Ox 93 O2 Delivery Room Air Room Air Room Air Room Air 02/25/19 02/25/19 02/25/19 07:00 09:14 09:44 Temp 97.6 97.6 Pulse 71 Resp 16 16 16 B/P (MAP) 137/91 (106) Pulse Ox 94 O2 Delivery Room Air Room Air Room Air Intake and Output 02/24/19 02/24/19 02/25/19 15:00 23:00 07:00 Intake Total 1100 ml Output Total 100 ml Balance 1000 ml YUKI HANCOCK MD Feb 25, 2019 11:26
--- NOTE | 2019-02-25 11:30 | NUR ---
SW following for discharge planning. Discussed with RN, pt is from home alone, currently has TPN. RN advised no SW needs at this time, SW will continue to follow.
--- NOTE | 2019-02-25 12:31 | PDOC ---
Subjective: Subjective: [place] like there were problems with NG tube this whole time - was retching - today says was removed/replaced and feels like it's working better now. Still feels "really sick" - tearful. Ongoing pain but meds help. No ostomy output, has been walking. Now on TPN. Objective: Vital Signs: Vital Signs Date Time Temp Pulse Resp B/P (MAP) Pulse Ox O2 Delivery O2 Flow Rate FiO2 02/25/19 12:13 16 Room Air 02/25/19 11:00 97.7 74 135/82 (99) 95 97.7 Labs: Laboratory Tests Test 02/25/19 05:35 White Blood Count 10.6 x10^3/uL Red Blood Count 3.77 x10^6/uL Hemoglobin 11.9 g/dL Hematocrit 35.6 % Mean Corpuscular Volume 95 fL Mean Corpuscular Hemoglobin 32 pg Mean Corpuscular Hemoglobin Concent 33 g/dL Red Cell Distribution Width 13.0 % Platelet Count 192 x10^3/uL Neutrophils (%) (Auto) 86 % Lymphocytes (%) (Auto) 9 % Monocytes (%) (Auto) 5 % Eosinophils (%) (Auto) 0 % Basophils (%) (Auto) 0 % Neutrophils # (Auto) 9.0 x10^3uL Lymphocytes # (Auto) 1.0 x10^3/uL Monocytes # (Auto) 0.5 x10^3/uL Eosinophils # (Auto) 0.0 x10^3/uL Basophils # (Auto) 0.0 x10^3/uL Segmented Neutrophils % 88 % Lymphocytes % 8 % Monocytes % 4 % Platelet Estimate Adequate Sodium Level 143 mmol/L Potassium Level 3.9 mmol/L Chloride Level 104 mmol/L Carbon Dioxide Level 31 mmol/L Anion Gap 8 Blood Urea Nitrogen 9 mg/dL Creatinine 0.9 mg/dL Estimated GFR (Cockcroft-Gault) 69.7 Glucose Level 145 mg/dL Calcium Level 8.1 mg/dL Phosphorus Level 3.2 mg/dL Magnesium Level 1.6 mg/dL Imaging: KUB 02/24 IMPRESSION: 1. NG tube in the stomach in good position. PE: GEN: NAD HEENT: NG tube brownish w/ ~125 cc out since this morning after replacement LUNGS: clear HEART: RRR ABD: LLQ ostomy empty, tender BLQ NEURO/PSYCH: A & O 3, depressed A/P: H/o Crohn's, multiple abd surgeries, SBO -- Reviewed w/ Dr. Burch - proceed w/ SBS tomorrow. MARIA EUGENIA MO Feb 25, 2019 12:31
[2019-02-25] MEDS: TPN PER PHARMACY MC PRN (13:31)
--- NOTE | 2019-02-25 13:42 | NUR ---
Pharmacy TPN Dosing Note S: MATTHEW HOLGUIN is a 39 year old F Currently receiving Central Continuous TPN started 02/24/19 B:Pertinent PMH: Partial SBO. No oral intake for long period of time. Height: 5 feet, 7 inches Weight: 72.6 kg Current diet: liquids LABS: Sodium: 143 Potassium: 3.9 Chloride: 104 Calcium: 8.1 Corrected Calcium: 8.02 Magnesium: 1.6 CO2: 31 SCr: 0.9 Glucose: 145 Albumin: 4.1 AST: 24 ALT: 32 TPN FORMULA: TPN TYPE: Central Continuous AMINO ACIDS: 60 gm DEXTROSE: 195 gm LIPIDS: 20 gm SODIUM CHLORIDE: 90 mEq POTASSIUM CHLORIDE: 50 mEq POTASSIUM PHOSPHATE: 16 mmol MAGNESIUM: 15 mEq CALCIUM: 10 mEq MULTIPLE VITAMIN: 10 ml TRACE ELEMENTS: 1ml TPN PLAN: Magnesium increased to 15mEq in tonight's TPN due to continued low level. R: Change TPN per plan and ordered formula. Will monitor electrolytes, glucose, and tolerance to TPN. Calli Sauer [facility], 02/25/19 [id number]
[2019-02-25 15:00] VITALS: BP 132/91
[2019-02-25 19:00] VITALS: BP 135/90
[2019-02-25] MEDS ORDERED: DEXTROSE 70% IV SCH ×10 (22:00)
[2019-02-25] MEDS ORDERED: AMINO ACID IV SCH ×10 (22:00)
[2019-02-25] MEDS ORDERED: TOTAL PARENTERAL NUTRITION IV SCH ×10 (22:00)
[2019-02-25] MEDS ORDERED: [UNRECOGNIZED DRUG - OTHER] IV SCH ×10 (22:00)
[2019-02-25 23:00] VITALS: BP 124/79
[2019-02-26 03:00] VITALS: BP 123/76
[2019-02-26] MEDS: diphenhydrAMINE 50 MG/ML VIAL IVP PRN ×4 (03:41→22:36)
[2019-02-26] MEDS: ONDANSETRON PF 4 MG/2 ML VIAL. IV PRN ×3 (03:42→19:24)
[2019-02-26] MEDS: HYDROmorphone 2 MG/ML VIAL IV PRN ×7 (03:42→22:37)
[2019-02-26 05:01] LABS: CALCIUM 8.1 mg/dL (8.5-10.1); CREATININE 0.8 mg/dL (0.6-1.0); GFR 79.9; PHOSPHORUS 3.5 mg/dL (2.6-4.7); POTASSIUM 3.9 mmol/L (3.5-5.1)
[2019-02-26] MEDS: PANTOPRAZOLE IV PUSH 40 MG VIAL. IVP SCH (06:40)
[2019-02-26 07:00] VITALS: BP 139/86
[2019-02-26] MEDS ORDERED: IOHEXOL 300 MG/ML 100ML VIAL. PO ONE (08:15)
--- NOTE | 2019-02-26 08:32 | NUR ---
SW following for discharge planning. Discussed with RN, pt having a small bowel series today, still on TPN. SW will continue to follow for any discharge planning needs.
--- NOTE | 2019-02-26 08:35 | PDOC ---
SURGICAL PROGRESS NOTE Subjective Denies any ileostomy output. Complains of LE edema and bruising Vital Signs Vital Signs Date Time Temp Pulse Resp B/P (MAP) Pulse Ox O2 Delivery O2 Flow Rate FiO2 02/26/19 07:00 98.6 74 18 139/86 (103) 100 Room Air 98.6 I&O Intake and Output 02/26/19 07:00 Intake Total 808.12 ml Output Total 2175 ml Balance -1366.88 ml IV Total 808.12 ml Output Gastric Drainage Total 2175 ml # Voids 3 PATIENT HAS A VEGAS: No General: Alert, Oriented X3, moderate distress Abdomen: Normal bowel sounds, Soft, Other (diffusely TTP no ileostomy output. NGT in place with bilious output) Labs Laboratory Tests Test 02/24/19 11:50 02/25/19 05:35 02/26/19 04:30 Erythrocyte Sedimentation Rate 4 (0-25) Sodium Level 140 mmol/L (136-145) 143 mmol/L (136-145) 141 mmol/L (136-145) Potassium Level 4.1 mmol/L (3.5-5.1) 3.9 mmol/L (3.5-5.1) 3.9 mmol/L (3.5-5.1) Chloride Level 102 mmol/L (98-107) 104 mmol/L (98-107) 103 mmol/L (98-107) Carbon Dioxide Level 27 mmol/L (21-32) 31 mmol/L (21-32) 35 mmol/L (21-32) Anion Gap 11 (6-14) 8 (6-14) 3 (6-14) Blood Urea Nitrogen 11 mg/dL (7-20) 9 mg/dL (7-20) 12 mg/dL (7-20) Creatinine 1.0 mg/dL (0.6-1.0) 0.9 mg/dL (0.6-1.0) 0.8 mg/dL (0.6-1.0) Estimated GFR (Cockcroft-Gault) 61.7 69.7 79.9 Glucose Level 179 mg/dL (70-99) 145 mg/dL (70-99) 107 mg/dL (70-99) Calcium Level 8.2 mg/dL (8.5-10.1) 8.1 mg/dL (8.5-10.1) 8.1 mg/dL (8.5-10.1) Phosphorus Level 2.1 mg/dL (2.6-4.7) 3.2 mg/dL (2.6-4.7) 3.5 mg/dL (2.6-4.7) Magnesium Level 1.7 mg/dL (1.8-2.4) 1.6 mg/dL (1.8-2.4) 2.0 mg/dL (1.8-2.4) C-Reactive Protein, Quantitative 0.9 mg/L (0-3.3) Triglycerides Level 47 mg/dL (0-150) White Blood Count 10.6 x10^3/uL (4.0-11.0) Red Blood Count 3.77 x10^6/uL (3.50-5.40) Hemoglobin 11.9 g/dL (12.0-15.5) Hematocrit 35.6 % (36.0-47.0) Mean Corpuscular Volume 95 fL (79-100) Mean Corpuscular Hemoglobin 32 pg (25-35) Mean Corpuscular Hemoglobin Concent 33 g/dL (31-37) Red Cell Distribution Width 13.0 % (11.5-14.5) Platelet Count 192 x10^3/uL (140-400) Neutrophils (%) (Auto) 86 % (31-73) Lymphocytes (%) (Auto) 9 % (24-48) Monocytes (%) (Auto) 5 % (0-9) Eosinophils (%) (Auto) 0 % (0-3) Basophils (%) (Auto) 0 % (0-3) Neutrophils # (Auto) 9.0 x10^3uL (1.8-7.7) Lymphocytes # (Auto) 1.0 x10^3/uL (1.0-4.8) Monocytes # (Auto) 0.5 x10^3/uL (0.0-1.1) Eosinophils # (Auto) 0.0 x10^3/uL (0.0-0.7) Basophils # (Auto) 0.0 x10^3/uL (0.0-0.2) Segmented Neutrophils % 88 % (35-66) Lymphocytes % 8 % (24-48) Monocytes % 4 % (0-10) Platelet Estimate Adequate (ADEQUATE) Laboratory Tests Test 02/26/19 04:30 Sodium Level 141 mmol/L (136-145) Potassium Level 3.9 mmol/L (3.5-5.1) Chloride Level 103 mmol/L (98-107) Carbon Dioxide Level 35 mmol/L (21-32) Anion Gap 3 (6-14) Blood Urea Nitrogen 12 mg/dL (7-20) Creatinine 0.8 mg/dL (0.6-1.0) Estimated GFR (Cockcroft-Gault) 79.9 Glucose Level 107 mg/dL (70-99) Calcium Level 8.1 mg/dL (8.5-10.1) Phosphorus Level 3.5 mg/dL (2.6-4.7) Magnesium Level 2.0 mg/dL (1.8-2.4) Problem List Problems Medical Problems: (1) Partial small bowel obstruction Status: Acute Assessment/Plan Crohn's disease with SBO awaiting results of SBFT today OPAL MAI MD Feb 26, 2019 08:34
[2019-02-26] MEDS: methylPREDNISolone SOD SUCC PF 40 MG/ML VIAL. IV SCH (10:10)
[2019-02-26 11:00] VITALS: BP 131/86
[2019-02-26 11:11] LABS: BASO % 0 % (0-3); EOS % 0 % (0-3); LYMPH # 0.7 x10^3/uL (1.0-4.8); LYMPH % 6 % (24-48); MEAN CORPUSCULAR HEMOGLOBIN 32 pg (25-35); MEAN CORPUSCULAR HGB CONC 33 g/dL (31-37); MEAN CORPUSCULAR VOLUME 95 fL (79-100); MONO # 0.6 x10^3/uL (0.0-1.1); MONO % 5 % (0-9); NEUT # 10.3 x10^3uL (1.8-7.7); NEUT % 89 % (31-73); PLATELET COUNT 205 x10^3/uL (140-400); RED BLOOD COUNT 3.78 x10^6/uL (3.50-5.40); RED CELL DISTRIBUTION WIDTH 13.5 % (11.5-14.5); WHITE BLOOD COUNT 11.7 x10^3/uL (4.0-11.0)
--- NOTE | 2019-02-26 12:25 | PDOC ---
Subjective: Subjective: Feels terrible - declined SBS because she didn't think she could handle it. No ostomy output, ongoing abd pain - feels hard. Will become more intense, then ostomy will prolapse. Not sleeping well, feels emotional, concerned w/ swelling and bruising, doesn't like how steroids make her feel. Objective: Vital Signs: Vital Signs Date Time Temp Pulse Resp B/P (MAP) Pulse Ox O2 Delivery O2 Flow Rate FiO2 02/26/19 11:00 97.6 73 18 131/86 (101) 97 Room Air 97.6 Labs: Laboratory Tests Test 02/26/19 04:30 White Blood Count 11.7 x10^3/uL Red Blood Count 3.78 x10^6/uL Hemoglobin 12.0 g/dL Hematocrit 36.0 % Mean Corpuscular Volume 95 fL Mean Corpuscular Hemoglobin 32 pg Mean Corpuscular Hemoglobin Concent 33 g/dL Red Cell Distribution Width 13.5 % Platelet Count 205 x10^3/uL Neutrophils (%) (Auto) 89 % Lymphocytes (%) (Auto) 6 % Monocytes (%) (Auto) 5 % Eosinophils (%) (Auto) 0 % Basophils (%) (Auto) 0 % Neutrophils # (Auto) 10.3 x10^3uL Lymphocytes # (Auto) 0.7 x10^3/uL Monocytes # (Auto) 0.6 x10^3/uL Eosinophils # (Auto) 0.0 x10^3/uL Basophils # (Auto) 0.0 x10^3/uL Sodium Level 141 mmol/L Potassium Level 3.9 mmol/L Chloride Level 103 mmol/L Carbon Dioxide Level 35 mmol/L Anion Gap 3 Blood Urea Nitrogen 12 mg/dL Creatinine 0.8 mg/dL Estimated GFR (Cockcroft-Gault) 79.9 Glucose Level 107 mg/dL Calcium Level 8.1 mg/dL Phosphorus Level 3.5 mg/dL Magnesium Level 2.0 mg/dL PE: GEN: NAD, walking slowly from restroom to bed HEENT: thick brownish output - looks like 150cc since this morning LUNGS: room air HEART: RRR ABD: tender, some firmness around hernia and in upper abdomen - I did hear a couple gurgles EXTREM: BLE pitting edema NEURO/PSYCH: A & O 3, tearful A/P: H/o Crohn's, multiple abd surgeries, SBO BLE edema, bruising -- Plans to try sesame seed oil today but requests re-ordering SBFT for tomorrow if ineffective. She'd like to back off on steroids - will change to QD and review w/ Dr. Burch. MARIA EUGENIA MO Feb 26, 2019 12:25
[2019-02-26] MEDS: TPN PER PHARMACY MC PRN (12:45)
--- NOTE | 2019-02-26 12:50 | NUR ---
Pharmacy TPN Dosing Note S: MATTHEW HOLGUIN is a 39 year old F Currently receiving Central Continuous TPN started 02/24/19 B:Pertinent PMH: Partial SBO. No oral intake for long period of time. Height: 5 feet, 7 inches Weight: 72.6 kg Current diet: liquids LABS: Sodium: 141 Potassium: 3.9 Chloride: 103 Calcium: 8.1 Corrected Calcium: 8.02 Magnesium: 2 CO2: 35 SCr: 0.8 Glucose: 107 Albumin: 4.1 AST: 24 ALT: 32 TPN FORMULA: TPN TYPE: Central Continuous AMINO ACIDS: 70 gm DEXTROSE: 250 gm LIPIDS: 30 gm SODIUM CHLORIDE: 90 mEq POTASSIUM CHLORIDE: 50 mEq POTASSIUM PHOSPHATE: 16 mmol MAGNESIUM: 15 mEq CALCIUM: 10 mEq MULTIPLE VITAMIN: 10 ml TRACE ELEMENTS: 1ml TPN PLAN: Adjust macros per dietary. R: Change TPN macros per sausage meat trimmer recs Will monitor electrolytes, glucose, and tolerance to TPN. Calli Sauer [facility], 02/26/19 [id number]
[2019-02-26 15:00] VITALS: BP 138/84
[2019-02-26] MEDS: FUROSEMIDE 20 MG/2 ML VIAL. IVP SCH (16:31)
--- NOTE | 2019-02-26 17:00 | PDOC ---
PROGRESS NOTES Chief Complaint Chief Complaint Assessment/Plan H/o Crohn's, multiple abd surgeries ( at least 20 x ex lap - mid umbilical scar) Indwelling left sided colostomy N/v, abd pain, decreased ostomy output, weight loss - concern for SBO/PSBO Chronic pain History of Present Illness History of Present Illness Pain not controlled but patient ambulating. patient concerned about bruising, labs stable however. NG in place TPN since nothing by mouth for a long time TPN per pharmacy-to run via her indwelling Port-A-Cath Bowel rest plan for SBFT today Vitals Vitals Vital Signs Date Time Temp Pulse Resp B/P (MAP) Pulse Ox O2 Delivery O2 Flow Rate FiO2 02/26/19 16:31 97 Room Air 02/26/19 15:00 98.2 74 18 138/84 (102) 98.2 Physical Exam General: Alert, Oriented X3, moderate distress Heart: Other (NG in place with bile tinged output) Lungs: Clear Abdomen: Normal bowel sounds, Soft, Other Extremities: No clubbing, No cyanosis, No edema, Normal pulses, No tenderness/ swelling Skin: No rashes, No breakdown, No significant lesion Labs LABS Laboratory Tests Test 02/26/19 04:30 White Blood Count 11.7 x10^3/uL (4.0-11.0) Red Blood Count 3.78 x10^6/uL (3.50-5.40) Hemoglobin 12.0 g/dL (12.0-15.5) Hematocrit 36.0 % (36.0-47.0) Mean Corpuscular Volume 95 fL (79-100) Mean Corpuscular Hemoglobin 32 pg (25-35) Mean Corpuscular Hemoglobin Concent 33 g/dL (31-37) Red Cell Distribution Width 13.5 % (11.5-14.5) Platelet Count 205 x10^3/uL (140-400) Neutrophils (%) (Auto) 89 % (31-73) Lymphocytes (%) (Auto) 6 % (24-48) Monocytes (%) (Auto) 5 % (0-9) Eosinophils (%) (Auto) 0 % (0-3) Basophils (%) (Auto) 0 % (0-3) Neutrophils # (Auto) 10.3 x10^3uL (1.8-7.7) Lymphocytes # (Auto) 0.7 x10^3/uL (1.0-4.8) Monocytes # (Auto) 0.6 x10^3/uL (0.0-1.1) Eosinophils # (Auto) 0.0 x10^3/uL (0.0-0.7) Basophils # (Auto) 0.0 x10^3/uL (0.0-0.2) Sodium Level 141 mmol/L (136-145) Potassium Level 3.9 mmol/L (3.5-5.1) Chloride Level 103 mmol/L (98-107) Carbon Dioxide Level 35 mmol/L (21-32) Anion Gap 3 (6-14) Blood Urea Nitrogen 12 mg/dL (7-20) Creatinine 0.8 mg/dL (0.6-1.0) Estimated GFR (Cockcroft-Gault) 79.9 Glucose Level 107 mg/dL (70-99) Calcium Level 8.1 mg/dL (8.5-10.1) Phosphorus Level 3.5 mg/dL (2.6-4.7) Magnesium Level 2.0 mg/dL (1.8-2.4) Assessment and Plan Assessmemt and Plan Problems Medical Problems: (1) Partial small bowel obstruction Status: Acute Comment Review of Relevant I have reviewed the following items kathy (where applicable) has been applied. Labs Laboratory Tests Test 02/25/19 05:35 02/26/19 04:30 White Blood Count 10.6 x10^3/uL (4.0-11.0) 11.7 x10^3/uL (4.0-11.0) Red Blood Count 3.77 x10^6/uL (3.50-5.40) 3.78 x10^6/uL (3.50-5.40) Hemoglobin 11.9 g/dL (12.0-15.5) 12.0 g/dL (12.0-15.5) Hematocrit 35.6 % (36.0-47.0) 36.0 % (36.0-47.0) Mean Corpuscular Volume 95 fL (79-100) 95 fL (79-100) Mean Corpuscular Hemoglobin 32 pg (25-35) 32 pg (25-35) Mean Corpuscular Hemoglobin Concent 33 g/dL (31-37) 33 g/dL (31-37) Red Cell Distribution Width 13.0 % (11.5-14.5) 13.5 % (11.5-14.5) Platelet Count 192 x10^3/uL (140-400) 205 x10^3/uL (140-400) Neutrophils (%) (Auto) 86 % (31-73) 89 % (31-73) Lymphocytes (%) (Auto) 9 % (24-48) 6 % (24-48) Monocytes (%) (Auto) 5 % (0-9) 5 % (0-9) Eosinophils (%) (Auto) 0 % (0-3) 0 % (0-3) Basophils (%) (Auto) 0 % (0-3) 0 % (0-3) Neutrophils # (Auto) 9.0 x10^3uL (1.8-7.7) 10.3 x10^3uL (1.8-7.7) Lymphocytes # (Auto) 1.0 x10^3/uL (1.0-4.8) 0.7 x10^3/uL (1.0-4.8) Monocytes # (Auto) 0.5 x10^3/uL (0.0-1.1) 0.6 x10^3/uL (0.0-1.1) Eosinophils # (Auto) 0.0 x10^3/uL (0.0-0.7) 0.0 x10^3/uL (0.0-0.7) Basophils # (Auto) 0.0 x10^3/uL (0.0-0.2) 0.0 x10^3/uL (0.0-0.2) Segmented Neutrophils % 88 % (35-66) Lymphocytes % 8 % (24-48) Monocytes % 4 % (0-10) Platelet Estimate Adequate (ADEQUATE) Sodium Level 143 mmol/L (136-145) 141 mmol/L (136-145) Potassium Level 3.9 mmol/L (3.5-5.1) 3.9 mmol/L (3.5-5.1) Chloride Level 104 mmol/L (98-107) 103 mmol/L (98-107) Carbon Dioxide Level 31 mmol/L (21-32) 35 mmol/L (21-32) Anion Gap 8 (6-14) 3 (6-14) Blood Urea Nitrogen 9 mg/dL (7-20) 12 mg/dL (7-20) Creatinine 0.9 mg/dL (0.6-1.0) 0.8 mg/dL (0.6-1.0) Estimated GFR (Cockcroft-Gault) 69.7 79.9 Glucose Level 145 mg/dL (70-99) 107 mg/dL (70-99) Calcium Level 8.1 mg/dL (8.5-10.1) 8.1 mg/dL (8.5-10.1) Phosphorus Level 3.2 mg/dL (2.6-4.7) 3.5 mg/dL (2.6-4.7) Magnesium Level 1.6 mg/dL (1.8-2.4) 2.0 mg/dL (1.8-2.4) Laboratory Tests Test 02/26/19 04:30 White Blood Count 11.7 x10^3/uL (4.0-11.0) Red Blood Count 3.78 x10^6/uL (3.50-5.40) Hemoglobin 12.0 g/dL (12.0-15.5) Hematocrit 36.0 % (36.0-47.0) Mean Corpuscular Volume 95 fL (79-100) Mean Corpuscular Hemoglobin 32 pg (25-35) Mean Corpuscular Hemoglobin Concent 33 g/dL (31-37) Red Cell Distribution Width 13.5 % (11.5-14.5) Platelet Count 205 x10^3/uL (140-400) Neutrophils (%) (Auto) 89 % (31-73) Lymphocytes (%) (Auto) 6 % (24-48) Monocytes (%) (Auto) 5 % (0-9) Eosinophils (%) (Auto) 0 % (0-3) Basophils (%) (Auto) 0 % (0-3) Neutrophils # (Auto) 10.3 x10^3uL (1.8-7.7) Lymphocytes # (Auto) 0.7 x10^3/uL (1.0-4.8) Monocytes # (Auto) 0.6 x10^3/uL (0.0-1.1) Eosinophils # (Auto) 0.0 x10^3/uL (0.0-0.7) Basophils # (Auto) 0.0 x10^3/uL (0.0-0.2) Sodium Level 141 mmol/L (136-145) Potassium Level 3.9 mmol/L (3.5-5.1) Chloride Level 103 mmol/L (98-107) Carbon Dioxide Level 35 mmol/L (21-32) Anion Gap 3 (6-14) Blood Urea Nitrogen 12 mg/dL (7-20) Creatinine 0.8 mg/dL (0.6-1.0) Estimated GFR (Cockcroft-Gault) 79.9 Glucose Level 107 mg/dL (70-99) Calcium Level 8.1 mg/dL (8.5-10.1) Phosphorus Level 3.5 mg/dL (2.6-4.7) Magnesium Level 2.0 mg/dL (1.8-2.4) Medications Current Medications Hydromorphone HCl (Dilaudid) 0.5 mg 1X ONCE IV Last administered on 02/21/19at 22:47; Start 02/21/19 at 22:30; Stop 02/21/19 at 22:31; Status DC Ondansetron HCl (Zofran) 4 mg 1X ONCE IV Last administered on 02/21/19at 22:46 ; Start 02/21/19 at 22:30; Stop 02/21/19 at 22:31; Status DC Sodium Chloride (NORMAL SALINE FLUSH for STERILE FIELD) 10 ml Branchly-MED ONCE .ROUTE ; Start 02/21/19 at 22:22; Stop 02/21/19 at 22:23; Status DC Hydromorphone HCl (Dilaudid) 0.5 mg 1X ONCE IV Last administered on 02/22/19at 00:12; Start 02/22/19 at 00:00; Stop 02/22/19 at 00:01; Status DC Ondansetron HCl (Zofran) 4 mg 1X ONCE IV Last administered on 02/22/19at 00:12 ; Start 02/22/19 at 00:00; Stop 02/22/19 at 00:01; Status DC Ondansetron HCl (Zofran) 4 mg PRN Q8HRS PRN IV NAUSEA/VOMITING 1ST CHOICE Last administered on 02/22/19 04:20; Start 02/22/19 at 00:00; Stop 02/22/19 at 09:33 ; Status DC Morphine Sulfate (Morphine Sulfate) 4 mg PRN Q2HR PRN IV SEVERE PAIN; Start 10/31 at 00:00; Stop 02/22/19 at 04:50; Status DC Benzocaine (Hurricaine One) 1 spray 1X ONCE MM Last administered on 02/22/19at 00:12; Start 02/22/19 at 00:30; Stop 02/22/19 at 00:31; Status DC Hydromorphone HCl (Dilaudid) 1.5 mg PRN Q6HRS PRN IV SEVERE PAIN Last administered on 02/22/19 08:11; Start 02/22/19 at 01:30; Stop 02/22/19 at 12:21 ; Status DC Sodium Chloride 1,000 ml @ 125 mls/hr Q8H IV Last administered on 02/22/19 06 :03; Start 02/22/19 at 06:00; Stop 02/22/19 at 09:33; Status DC Hydromorphone HCl (Dilaudid) 1 mg 1X ONCE IV Last administered on 02/22/19 06 :02; Start 02/22/19 at 06:00; Stop 02/22/19 at 06:01; Status DC Ondansetron HCl (Zofran) 4 mg PRN Q6HRS PRN IV NAUSEA/VOMITING 1ST CHOICE Last administered on 02/26/19 10:07; Start 02/22/19 at 09:45 Diphenhydramine HCl (Benadryl) 25 mg PRN QHS PRN IVP sleep Last administered on 02/22/19 12:45; Start 02/22/19 at 09:45; Stop 02/22/19 at 18:41; Status DC Potassium Chloride/Dextrose/ Sod Cl 1,000 ml @ 100 mls/hr 1X ONCE IV Last administered on 02/22/19 10:51; Start 02/22/19 at 10:30; Stop 02/22/19 at 20:29 ; Status DC Pantoprazole Sodium (PROTONIX VIAL for IV PUSH) 40 mg DAILYAC IVP Last administered on 02/26/19at 06:40; Start 02/22/19 at 11:30 Methylprednisolone Sodium Succinate (SOLU-Medrol 40MG VIAL) 20 mg Q12HR IV Last administered on 02/26/19at 10:10; Start 02/22/19 at 12:00; Stop 02/26/19 at 12:28; Status DC Hydromorphone HCl (Dilaudid) 1.5 mg PRN Q4HRS PRN IV SEVERE PAIN Last administered on 02/23/19 21:12; Start 02/22/19 at 12:30; Stop 02/23/19 at 22:58 ; Status DC Diphenhydramine HCl (Benadryl) 25 mg PRN Q6HRS PRN IVP ITCHING Last administered on 02/26/19 16:31; Start 02/22/19 at 12:45 Sodium Chloride 1,000 ml @ 100 mls/hr Q10H IV Last administered on 02/24/19 14:22; Start 02/22/19 at 22:00; Stop 02/25/19 at 10:25; Status DC Levofloxacin/ Dextrose 100 ml @ 100 mls/hr Q24H IV Last administered on at 20:44; Start 02/23/19 at 21:00 Hydromorphone HCl (Dilaudid) 2 mg PRN Q3HRS PRN IV SEVERE PAIN Last administered on 02/26/19 16:31; Start 02/23/19 at 22:55 Info (Tpn Per Pharmacy) 1 each PRN DAILY PRN MC SEE COMMENTS Last administered on 02/26/19 12:45; Start 02/24/19 at 08:15 Cyanocobalamin (Vitamin B-12) 1,000 mcg 1X STAT IM Last administered on 12:06; Start 02/24/19 at 10:05; Stop 02/24/19 at 10:08; Status DC Sodium Chloride 90 meq/Potassium Chloride 50 meq/ Potassium Phosphate 16 mmol/ Magnesium Sulfate 10 meq/Calcium Gluconate 10 meq/ Multivitamins 10 ml/Chromium / Copper/Manganese/ Seleni/Zn 1 ml/ Total Parenteral Nutrition/Amino Acids/ Dextrose/ Fat Emulsion Intravenous 1,512 ml @ 63 mls/hr TPN CONT IV Last administered on 02/24/19 22:25; Start 02/24/19 at 22:00; Stop 02/26/19 at 00:37 ; Status DC Diphenhydramine HCl (Benadryl) 50 mg 1X ONCE IVP Last administered on at 02:16; Start 02/25/19 at 02:00; Stop 02/25/19 at 02:01; Status DC Sodium Chloride 90 meq/Potassium Chloride 50 meq/ Potassium Phosphate 16 mmol/ Magnesium Sulfate 15 meq/Calcium Gluconate 10 meq/ Multivitamins 10 ml/Chromium / Copper/Manganese/ Seleni/Zn 1 ml/ Total Parenteral Nutrition/Amino Acids/ Dextrose/ Fat Emulsion Intravenous 1,512 ml @ 63 mls/hr TPN CONT IV ; Start at 22:00; Stop 02/26/19 at 21:59 Iohexol (Omnipaque 300 Mg/ml) 400 ml 1X ONCE PO ; Start 02/26/19 at 08:15; Stop 02/26/19 at 08:16; Status UNV Methylprednisolone Sodium Succinate (SOLU-Medrol 40MG VIAL) 20 mg DAILY IV ; Start 02/27/19 at 09:00 Sodium Chloride 90 meq/Potassium Chloride 50 meq/ Potassium Phosphate 16 mmol/ Magnesium Sulfate 15 meq/Calcium Gluconate 10 meq/ Multivitamins 10 ml/Chromium / Copper/Manganese/ Seleni/Zn 1 ml/ Total Parenteral Nutrition/Amino Acids/ Dextrose/ Fat Emulsion Intravenous 1,512 ml @ 63 mls/hr TPN CONT IV ; Start at 22:00; Stop 02/27/19 at 21:59 Furosemide (Lasix) 10 mg DAILY IVP Last administered on 02/26/19at 16:31; Start 02/26/19 at 16:00 Active Scripts Active Reported [dilaudid liquid] 1.5 Mg PO PRN Q8HRS PRN [ferous sulfate] Mg PO DAILY [vitamin B12 inject.] MONTHLY Vitamin D3 (Cholecalciferol (Vitamin D3)) 5,000 Unit Tablet 5,000 Unit PO WEEKLY Tablet (Pnv Cmb#95/Ferrous Fumarate/Fa) 1 Each Tablet 1 Tab PO DAILY Benadryl (Diphenhydramine Hcl) 25 Mg Capsule 25 Mg PO PRN Q4-6HRS PRN Zofran Odt (Ondansetron) 4 Mg Tab.rapdis 4 Mg PO BID PRN Biotin 10,000 Mcg Tab.rapdis 10,000 Mcg PO DAILY Simethicone 125 Mg Capsule 125 Mg PO PRN DAILY PRN Pantoprazole Sodium 40 Mg Tablet.dr 40 Mg PO DAILY Clonazepam 1 Mg Tablet 1 Tab PO PRN BID PRN Vitals/I & O Vital Sign - Last 24 Hours 02/25/19 02/25/19 02/25/19 02/25/19 18:16 19:00 19:24 21:18 Temp 97.7 97.7 Pulse 74 Resp 16 B/P (MAP) 135/90 (105) Pulse Ox 93 96 O2 Delivery Room Air Room Air Room Air Room Air 02/25/19 02/26/19 02/26/19 02/26/19 23:00 03:00 03:42 06:43 Temp 97.4 97.6 97.4 97.6 Pulse 95 77 Resp 16 16 B/P (MAP) 124/79 (94) 123/76 (92) Pulse Ox 94 94 O2 Delivery Room Air Room Air Room Air Room Air 02/26/19 02/26/19 02/26/19 02/26/19 07:00 07:40 10:07 11:00 Temp 98.6 97.6 98.6 97.6 Pulse 74 73 Resp 18 18 B/P (MAP) 139/86 (103) 131/86 (101) Pulse Ox 100 100 97 O2 Delivery Room Air Room Air Room Air Room Air 02/26/19 02/26/19 02/26/19 02/26/19 13:27 14:10 15:00 16:31 Temp 98.2 98.2 Pulse 74 Resp 18 B/P (MAP) 138/84 (102) Pulse Ox 97 97 O2 Delivery Room Air Room Air Room Air Room Air Intake and Output 02/25/19 02/25/19 02/26/19 15:00 23:00 07:00 Intake Total 808.12 ml Output Total 915 ml 1260 ml Balance -106.88 ml -1260 ml YUKI HANCOCK MD Feb 26, 2019 17:00
[2019-02-26 19:00] VITALS: BP 121/80
--- NOTE | 2019-02-26 21:10 | NUR ---
At 1400, 50cc sesame seed oil followed by 30cc regular tap water flush was given via pt's NG tube, NG clamped for 2 hours, then returned to LIS for 6 more hours, procedure to be repeated at 2200, and again 8 hours later. Night nurse aware, pt tolerated first dose very well.
[2019-02-26] MEDS ORDERED: [UNRECOGNIZED DRUG - OTHER] IV SCH ×10 (22:00)
[2019-02-26] MEDS ORDERED: AMINO ACID IV SCH ×10 (22:00)
[2019-02-26] MEDS ORDERED: DEXTROSE 70% IV SCH ×10 (22:00)
[2019-02-26] MEDS ORDERED: TOTAL PARENTERAL NUTRITION IV SCH ×10 (22:00)
--- NOTE | 2019-02-26 22:00 | NUR ---
50 ml sesame seed oil given followed by 30 ml of water to flush via NG tube. Will continue to clamp NG tube for 2 hours. Pt tolerated well. Will continue to monitor.
[2019-02-26 23:00] VITALS: BP 116/77
[2019-02-27] MEDS: HYDROmorphone 2 MG/ML VIAL IV PRN ×8 (01:38→22:49)
[2019-02-27] MEDS: ONDANSETRON PF 4 MG/2 ML VIAL. IV PRN ×4 (01:38→20:01)
[2019-02-27 03:00] VITALS: BP 120/83
[2019-02-27] MEDS: diphenhydrAMINE 50 MG/ML VIAL IVP PRN ×4 (04:39→22:48)
[2019-02-27 06:36] LABS: CALCIUM 8.5 mg/dL (8.5-10.1); CREATININE 0.8 mg/dL (0.6-1.0); GFR 79.9; MAGNESIUM 2.2 mg/dL (1.8-2.4); PHOSPHORUS 4.1 mg/dL (2.6-4.7); POTASSIUM 3.4 mmol/L (3.5-5.1)
[2019-02-27 07:00] VITALS: BP 132/89
[2019-02-27] MEDS: PANTOPRAZOLE IV PUSH 40 MG VIAL. IVP SCH (07:51)
--- NOTE | 2019-02-27 08:17 | PDOC ---
SURGICAL PROGRESS NOTE Subjective Patient somewhat tearful no results after starting Sesame seed oil Vital Signs Vital Signs Date Time Temp Pulse Resp B/P (MAP) Pulse Ox O2 Delivery O2 Flow Rate FiO2 02/27/19 07:51 Room Air 02/27/19 07:00 97.7 94 18 132/89 (103) 100 97.7 I&O Intake and Output 02/27/19 07:00 Intake Total 100 ml Output Total 500 ml Balance -400 ml Intake Oral 0 ml IV Total 100 ml Output Gastric Drainage Total 500 ml # Voids 2 PATIENT HAS A VEGAS: No General: Alert, Oriented X3, Cooperative, mild distress Abdomen: Normal bowel sounds, Soft, Other (diffusely tender to palpation no peritoneal signs mildly distended) Labs Laboratory Tests Test 02/26/19 04:30 02/27/19 05:40 White Blood Count 11.7 x10^3/uL (4.0-11.0) Red Blood Count 3.78 x10^6/uL (3.50-5.40) Hemoglobin 12.0 g/dL (12.0-15.5) Hematocrit 36.0 % (36.0-47.0) Mean Corpuscular Volume 95 fL (79-100) Mean Corpuscular Hemoglobin 32 pg (25-35) Mean Corpuscular Hemoglobin Concent 33 g/dL (31-37) Red Cell Distribution Width 13.5 % (11.5-14.5) Platelet Count 205 x10^3/uL (140-400) Neutrophils (%) (Auto) 89 % (31-73) Lymphocytes (%) (Auto) 6 % (24-48) Monocytes (%) (Auto) 5 % (0-9) Eosinophils (%) (Auto) 0 % (0-3) Basophils (%) (Auto) 0 % (0-3) Neutrophils # (Auto) 10.3 x10^3uL (1.8-7.7) Lymphocytes # (Auto) 0.7 x10^3/uL (1.0-4.8) Monocytes # (Auto) 0.6 x10^3/uL (0.0-1.1) Eosinophils # (Auto) 0.0 x10^3/uL (0.0-0.7) Basophils # (Auto) 0.0 x10^3/uL (0.0-0.2) Sodium Level 141 mmol/L (136-145) 140 mmol/L (136-145) Potassium Level 3.9 mmol/L (3.5-5.1) 3.4 mmol/L (3.5-5.1) Chloride Level 103 mmol/L (98-107) 99 mmol/L (98-107) Carbon Dioxide Level 35 mmol/L (21-32) 37 mmol/L (21-32) Anion Gap 3 (6-14) 4 (6-14) Blood Urea Nitrogen 12 mg/dL (7-20) 15 mg/dL (7-20) Creatinine 0.8 mg/dL (0.6-1.0) 0.8 mg/dL (0.6-1.0) Estimated GFR (Cockcroft-Gault) 79.9 79.9 Glucose Level 107 mg/dL (70-99) 87 mg/dL (70-99) Calcium Level 8.1 mg/dL (8.5-10.1) 8.5 mg/dL (8.5-10.1) Phosphorus Level 3.5 mg/dL (2.6-4.7) 4.1 mg/dL (2.6-4.7) Magnesium Level 2.0 mg/dL (1.8-2.4) 2.2 mg/dL (1.8-2.4) Laboratory Tests Test 02/27/19 05:40 Sodium Level 140 mmol/L (136-145) Potassium Level 3.4 mmol/L (3.5-5.1) Chloride Level 99 mmol/L (98-107) Carbon Dioxide Level 37 mmol/L (21-32) Anion Gap 4 (6-14) Blood Urea Nitrogen 15 mg/dL (7-20) Creatinine 0.8 mg/dL (0.6-1.0) Estimated GFR (Cockcroft-Gault) 79.9 Glucose Level 87 mg/dL (70-99) Calcium Level 8.5 mg/dL (8.5-10.1) Phosphorus Level 4.1 mg/dL (2.6-4.7) Magnesium Level 2.2 mg/dL (1.8-2.4) Problem List Problems Medical Problems: (1) Partial small bowel obstruction Status: Acute Assessment/Plan We'll obtain small bowel follow through today follow up on results OPAL MAI MD Feb 27, 2019 08:17
[2019-02-27] MEDS: methylPREDNISolone SOD SUCC PF 40 MG/ML VIAL. IV SCH (08:36)
[2019-02-27] MEDS: FUROSEMIDE 20 MG/2 ML VIAL. IVP SCH (08:36)
[2019-02-27] MEDS ORDERED: IOHEXOL 300 MG/ML 100ML VIAL. PO ONE (08:45)
--- NOTE | 2019-02-27 09:58 | PDOC ---
PROGRESS NOTES Chief Complaint Chief Complaint Assessment/Plan H/o Crohn's, multiple abd surgeries ( at least 20 x ex lap - mid umbilical scar) Indwelling left sided colostomy N/v, abd pain, decreased ostomy output, weight loss - concern for SBO/PSBO Chronic pain History of Present Illness History of Present Illness Pain about the same. oil did not help yesterday. bruising same, labs stable NG in place TPN since nothing by mouth for a long time TPN per pharmacy-to run via her indwelling Port-A-Cath Bowel rest plan for SBFT today continue levaquin and IV steroids lasix started given lower extremity swelling. watch creatine and K Vitals Vitals Vital Signs Date Time Temp Pulse Resp B/P (MAP) Pulse Ox O2 Delivery O2 Flow Rate FiO2 02/27/19 08:36 Room Air 02/27/19 07:00 97.7 94 18 132/89 (103) 100 97.7 Physical Exam General: Alert, Oriented X3, Cooperative, mild distress Heart: Other (NG in place with bile tinged output) Lungs: Clear Abdomen: Normal bowel sounds, Soft, Other (diffusely tender to palpation no peritoneal signs mildly distended) Extremities: No clubbing, No cyanosis, No edema, Normal pulses, No tenderness/ swelling Skin: No rashes, No breakdown, No significant lesion Labs LABS Laboratory Tests Test 02/27/19 05:40 Sodium Level 140 mmol/L (136-145) Potassium Level 3.4 mmol/L (3.5-5.1) Chloride Level 99 mmol/L (98-107) Carbon Dioxide Level 37 mmol/L (21-32) Anion Gap 4 (6-14) Blood Urea Nitrogen 15 mg/dL (7-20) Creatinine 0.8 mg/dL (0.6-1.0) Estimated GFR (Cockcroft-Gault) 79.9 Glucose Level 87 mg/dL (70-99) Calcium Level 8.5 mg/dL (8.5-10.1) Phosphorus Level 4.1 mg/dL (2.6-4.7) Magnesium Level 2.2 mg/dL (1.8-2.4) Assessment and Plan Assessmemt and Plan Problems Medical Problems: (1) Partial small bowel obstruction Status: Acute Comment Review of Relevant I have reviewed the following items kathy (where applicable) has been applied. Labs Laboratory Tests Test 02/26/19 04:30 02/27/19 05:40 White Blood Count 11.7 x10^3/uL (4.0-11.0) Red Blood Count 3.78 x10^6/uL (3.50-5.40) Hemoglobin 12.0 g/dL (12.0-15.5) Hematocrit 36.0 % (36.0-47.0) Mean Corpuscular Volume 95 fL (79-100) Mean Corpuscular Hemoglobin 32 pg (25-35) Mean Corpuscular Hemoglobin Concent 33 g/dL (31-37) Red Cell Distribution Width 13.5 % (11.5-14.5) Platelet Count 205 x10^3/uL (140-400) Neutrophils (%) (Auto) 89 % (31-73) Lymphocytes (%) (Auto) 6 % (24-48) Monocytes (%) (Auto) 5 % (0-9) Eosinophils (%) (Auto) 0 % (0-3) Basophils (%) (Auto) 0 % (0-3) Neutrophils # (Auto) 10.3 x10^3uL (1.8-7.7) Lymphocytes # (Auto) 0.7 x10^3/uL (1.0-4.8) Monocytes # (Auto) 0.6 x10^3/uL (0.0-1.1) Eosinophils # (Auto) 0.0 x10^3/uL (0.0-0.7) Basophils # (Auto) 0.0 x10^3/uL (0.0-0.2) Sodium Level 141 mmol/L (136-145) 140 mmol/L (136-145) Potassium Level 3.9 mmol/L (3.5-5.1) 3.4 mmol/L (3.5-5.1) Chloride Level 103 mmol/L (98-107) 99 mmol/L (98-107) Carbon Dioxide Level 35 mmol/L (21-32) 37 mmol/L (21-32) Anion Gap 3 (6-14) 4 (6-14) Blood Urea Nitrogen 12 mg/dL (7-20) 15 mg/dL (7-20) Creatinine 0.8 mg/dL (0.6-1.0) 0.8 mg/dL (0.6-1.0) Estimated GFR (Cockcroft-Gault) 79.9 79.9 Glucose Level 107 mg/dL (70-99) 87 mg/dL (70-99) Calcium Level 8.1 mg/dL (8.5-10.1) 8.5 mg/dL (8.5-10.1) Phosphorus Level 3.5 mg/dL (2.6-4.7) 4.1 mg/dL (2.6-4.7) Magnesium Level 2.0 mg/dL (1.8-2.4) 2.2 mg/dL (1.8-2.4) Laboratory Tests Test 02/27/19 05:40 Sodium Level 140 mmol/L (136-145) Potassium Level 3.4 mmol/L (3.5-5.1) Chloride Level 99 mmol/L (98-107) Carbon Dioxide Level 37 mmol/L (21-32) Anion Gap 4 (6-14) Blood Urea Nitrogen 15 mg/dL (7-20) Creatinine 0.8 mg/dL (0.6-1.0) Estimated GFR (Cockcroft-Gault) 79.9 Glucose Level 87 mg/dL (70-99) Calcium Level 8.5 mg/dL (8.5-10.1) Phosphorus Level 4.1 mg/dL (2.6-4.7) Magnesium Level 2.2 mg/dL (1.8-2.4) Medications Current Medications Hydromorphone HCl (Dilaudid) 0.5 mg 1X ONCE IV Last administered on 02/21/19at 22:47; Start 02/21/19 at 22:30; Stop 02/21/19 at 22:31; Status DC Ondansetron HCl (Zofran) 4 mg 1X ONCE IV Last administered on 02/21/19at 22:46 ; Start 02/21/19 at 22:30; Stop 02/21/19 at 22:31; Status DC Sodium Chloride (NORMAL SALINE FLUSH for STERILE FIELD) 10 ml STK-MED ONCE .ROUTE ; Start 02/21/19 at 22:22; Stop 02/21/19 at 22:23; Status DC Hydromorphone HCl (Dilaudid) 0.5 mg 1X ONCE IV Last administered on 02/22/19at 00:12; Start 02/22/19 at 00:00; Stop 02/22/19 at 00:01; Status DC Ondansetron HCl (Zofran) 4 mg 1X ONCE IV Last administered on 02/22/19at 00:12 ; Start 02/22/19 at 00:00; Stop 02/22/19 at 00:01; Status DC Ondansetron HCl (Zofran) 4 mg PRN Q8HRS PRN IV NAUSEA/VOMITING 1ST CHOICE Last administered on 02/22/19at 04:20; Start 02/22/19 at 00:00; Stop 02/22/19 at 09:33 ; Status DC Morphine Sulfate (Morphine Sulfate) 4 mg PRN Q2HR PRN IV SEVERE PAIN; Start 10/31 at 00:00; Stop 02/22/19 at 04:50; Status DC Benzocaine (Hurricaine One) 1 spray 1X ONCE MM Last administered on 02/22/19at 00:12; Start 02/22/19 at 00:30; Stop 02/22/19 at 00:31; Status DC Hydromorphone HCl (Dilaudid) 1.5 mg PRN Q6HRS PRN IV SEVERE PAIN Last administered on 02/22/19at 08:11; Start 02/22/19 at 01:30; Stop 02/22/19 at 12:21 ; Status DC Sodium Chloride 1,000 ml @ 125 mls/hr Q8H IV Last administered on 02/22/19at 06 :03; Start 02/22/19 at 06:00; Stop 02/22/19 at 09:33; Status DC Hydromorphone HCl (Dilaudid) 1 mg 1X ONCE IV Last administered on 02/22/19at 06 :02; Start 02/22/19 at 06:00; Stop 02/22/19 at 06:01; Status DC Ondansetron HCl (Zofran) 4 mg PRN Q6HRS PRN IV NAUSEA/VOMITING 1ST CHOICE Last administered on 02/27/19at 07:51; Start 02/22/19 at 09:45 Diphenhydramine HCl (Benadryl) 25 mg PRN QHS PRN IVP sleep Last administered on 02/22/19at 12:45; Start 02/22/19 at 09:45; Stop 02/22/19 at 18:41; Status DC Potassium Chloride/Dextrose/ Sod Cl 1,000 ml @ 100 mls/hr 1X ONCE IV Last administered on 02/22/19 10:51; Start 02/22/19 at 10:30; Stop 02/22/19 at 20:29 ; Status DC Pantoprazole Sodium (PROTONIX VIAL for IV PUSH) 40 mg DAILYAC IVP Last administered on 02/27/19 07:51; Start 02/22/19 at 11:30 Methylprednisolone Sodium Succinate (SOLU-Medrol 40MG VIAL) 20 mg Q12HR IV Last administered on 02/26/19 10:10; Start 02/22/19 at 12:00; Stop 02/26/19 at 12:28; Status DC Hydromorphone HCl (Dilaudid) 1.5 mg PRN Q4HRS PRN IV SEVERE PAIN Last administered on 02/23/19 21:12; Start 02/22/19 at 12:30; Stop 02/23/19 at 22:58 ; Status DC Diphenhydramine HCl (Benadryl) 25 mg PRN Q6HRS PRN IVP ITCHING Last administered on 02/27/19 04:39; Start 02/22/19 at 12:45 Sodium Chloride 1,000 ml @ 100 mls/hr Q10H IV Last administered on 02/24/19 14:22; Start 02/22/19 at 22:00; Stop 02/25/19 at 10:25; Status DC Levofloxacin/ Dextrose 100 ml @ 100 mls/hr Q24H IV Last administered on 21:44; Start 02/23/19 at 21:00 Hydromorphone HCl (Dilaudid) 2 mg PRN Q3HRS PRN IV SEVERE PAIN Last administered on 02/27/19 07:51; Start 02/23/19 at 22:55 Info (Tpn Per Pharmacy) 1 each PRN DAILY PRN MC SEE COMMENTS Last administered on 02/26/19 12:45; Start 02/24/19 at 08:15 Cyanocobalamin (Vitamin B-12) 1,000 mcg 1X STAT IM Last administered on 12:06; Start 02/24/19 at 10:05; Stop 02/24/19 at 10:08; Status DC Sodium Chloride 90 meq/Potassium Chloride 50 meq/ Potassium Phosphate 16 mmol/ Magnesium Sulfate 10 meq/Calcium Gluconate 10 meq/ Multivitamins 10 ml/Chromium / Copper/Manganese/ Seleni/Zn 1 ml/ Total Parenteral Nutrition/Amino Acids/ Dextrose/ Fat Emulsion Intravenous 1,512 ml @ 63 mls/hr TPN CONT IV Last administered on 02/24/19at 22:25; Start 02/24/19 at 22:00; Stop 02/26/19 at 00:37 ; Status DC Diphenhydramine HCl (Benadryl) 50 mg 1X ONCE IVP Last administered on at 02:16; Start 02/25/19 at 02:00; Stop 02/25/19 at 02:01; Status DC Sodium Chloride 90 meq/Potassium Chloride 50 meq/ Potassium Phosphate 16 mmol/ Magnesium Sulfate 15 meq/Calcium Gluconate 10 meq/ Multivitamins 10 ml/Chromium / Copper/Manganese/ Seleni/Zn 1 ml/ Total Parenteral Nutrition/Amino Acids/ Dextrose/ Fat Emulsion Intravenous 1,512 ml @ 63 mls/hr TPN CONT IV ; Start at 22:00; Stop 02/26/19 at 21:59; Status DC Iohexol (Omnipaque 300 Mg/ml) 400 ml 1X ONCE PO ; Start 02/26/19 at 08:15; Stop 02/26/19 at 08:16; Status UNV Methylprednisolone Sodium Succinate (SOLU-Medrol 40MG VIAL) 20 mg DAILY IV Last administered on 02/27/19at 08:36; Start 02/27/19 at 09:00 Sodium Chloride 90 meq/Potassium Chloride 50 meq/ Potassium Phosphate 16 mmol/ Magnesium Sulfate 15 meq/Calcium Gluconate 10 meq/ Multivitamins 10 ml/Chromium / Copper/Manganese/ Seleni/Zn 1 ml/ Total Parenteral Nutrition/Amino Acids/ Dextrose/ Fat Emulsion Intravenous 1,512 ml @ 63 mls/hr TPN CONT IV Last administered on 02/26/19at 22:38; Start 02/26/19 at 22:00; Stop 02/27/19 at 21:59 Furosemide (Lasix) 10 mg DAILY IVP Last administered on 02/27/19at 08:36; Start 02/26/19 at 16:00 Iohexol (Omnipaque 300 Mg/ml) 400 ml 1X ONCE PO ; Start 02/27/19 at 08:45; Stop 02/27/19 at 09:01; Status DC Active Scripts Active Reported [dilaudid liquid] 1.5 Mg PO PRN Q8HRS PRN [ferous sulfate] Mg PO DAILY [vitamin B12 inject.] MONTHLY Vitamin D3 (Cholecalciferol (Vitamin D3)) 5,000 Unit Tablet 5,000 Unit PO WEEKLY Tablet (Pnv Cmb#95/Ferrous Fumarate/Fa) 1 Each Tablet 1 Tab PO DAILY Benadryl (Diphenhydramine Hcl) 25 Mg Capsule 25 Mg PO PRN Q4-6HRS PRN Zofran Odt (Ondansetron) 4 Mg Tab.rapdis 4 Mg PO BID PRN Biotin 10,000 Mcg Tab.rapdis 10,000 Mcg PO DAILY Simethicone 125 Mg Capsule 125 Mg PO PRN DAILY PRN Pantoprazole Sodium 40 Mg Tablet.dr 40 Mg PO DAILY Clonazepam 1 Mg Tablet 1 Tab PO PRN BID PRN Vitals/I & O Vital Sign - Last 24 Hours 02/26/19 02/26/19 02/26/19 02/26/19 10:07 11:00 13:27 15:00 Temp 97.6 98.2 97.6 98.2 Pulse 73 74 Resp 18 18 B/P (MAP) 131/86 (101) 138/84 (102) Pulse Ox 100 97 97 O2 Delivery Room Air Room Air Room Air Room Air 02/26/19 02/26/19 02/26/19 02/26/19 16:31 19:00 19:05 20:00 Temp 97.3 97.3 Pulse 85 Resp 18 B/P (MAP) 121/80 (94) Pulse Ox 97 95 O2 Delivery Room Air Room Air Room Air Room Air 02/26/19 02/26/19 02/27/19 02/27/19 22:37 23:00 01:38 03:00 Temp 97.5 97.5 97.5 97.5 Pulse 90 78 Resp 18 18 B/P (MAP) 116/77 (90) 120/83 (95) Pulse Ox 92 95 O2 Delivery Room Air Room Air Room Air Room Air 02/27/19 02/27/19 02/27/19 02/27/19 04:39 07:00 07:51 08:36 Temp 97.7 97.7 Pulse 94 Resp 18 B/P (MAP) 132/89 (103) Pulse Ox 100 O2 Delivery Room Air Room Air Room Air Room Air Intake and Output 02/26/19 02/26/19 02/27/19 15:00 23:00 07:00 Intake Total 100 ml 0 ml Output Total 500 ml 1400 ml Balance -400 ml -1400 ml YUKI HANCOCK MD Feb 27, 2019 09:58
--- NOTE | 2019-02-27 10:16 | NUR ---
SW following. Discussed with RN, pt possibly having a small bowel series today. SW will continue to follow.
--- NOTE | 2019-02-27 10:28 | PDOC ---
Subjective: Subjective: Had a little ostomy output w/ sesame oil, has had cramping, feels some movement in right abdomen. Waiting for SBS. Asks if barium will cause cramping. Says swelling isn't better but primary told her to stop Lasix w/ concern for dehydration, says plans for compression stockings. Objective: Objective: D/w RN - pt went down for SBS but then had questions if sesame oil would interfere so was sent back up to floor. Reviewed surgery note. Vital Signs: Vital Signs Date Time Temp Pulse Resp B/P (MAP) Pulse Ox O2 Delivery O2 Flow Rate FiO2 02/27/19 08:36 Room Air 02/27/19 07:00 97.7 94 18 132/89 (103) 100 97.7 PE: GEN: NAD - walking back from restroom LUNGS: CTAB HEART: RRR ABD: occasional quiet gurgle, desizing machine back tender, she shows me a little output from ostomy EXTREMITY: BLE pitting edema NEURO/PSYCH: A & O 3 A/P: H/o Crohn's, multiple abd surgeries, SBO -- Has concerns for Lasix and said she was told to stop. Await SBS. Checked re: SBS progress - looks like rescheduled again for tomorrow. MARIA EUGENIA MO Feb 27, 2019 10:28
[2019-02-27 11:00] VITALS: BP 134/94
[2019-02-27] MEDS: TPN PER PHARMACY MC PRN (13:45)
--- NOTE | 2019-02-27 13:58 | NUR ---
Pharmacy TPN Dosing Note S: MATTHEW HOLGUIN is a 39 year old F Currently receiving Central Continuous TPN started 02/24/19 B:Pertinent PMH: Partial SBO. No oral intake for long period of time. Height: 5 feet, 7 inches Weight: 72.680101 kg Current diet: liquids LABS: Sodium: 140 Potassium: 3.4 Chloride: 99 Calcium: 8.5 Corrected Calcium: 10.02 Magnesium: 2.3 CO2: 34 SCr: 1.0 Glucose: 115 Albumin: 2.1 AST: 24 ALT: 32 TPN FORMULA: TPN TYPE: Central Continuous AMINO ACIDS: 70 gm DEXTROSE: 250 gm LIPIDS: 30 gm SODIUM CHLORIDE: 90 mEq SODIUM ACETATE: mEq SODIUM PHOSPHATE: mmol POTASSIUM CHLORIDE: 50 mEq POTASSIUM ACETATE: mEq POTASSIUM PHOSPHATE: 16 mmol MAGNESIUM: 15 mEq CALCIUM: 10 mEq INSULIN: units MULTIPLE VITAMIN: 10 ml TRACE ELEMENTS: 1ml ml(s) TPN PLAN: no changes in tpn. R: Continue TPN SAME RATE Will monitor electrolytes, glucose, and tolerance to TPN. IWONA HAMM [facility], 02/27/19 [id number]
[2019-02-27 15:00] VITALS: BP 143/91
[2019-02-27 19:00] VITALS: BP 128/91
[2019-02-27] MEDS ORDERED: DEXTROSE 70% IV SCH ×10 (22:00)
[2019-02-27] MEDS ORDERED: [UNRECOGNIZED DRUG - OTHER] IV SCH ×10 (22:00)
[2019-02-27] MEDS ORDERED: AMINO ACID IV SCH ×10 (22:00)
[2019-02-27] MEDS ORDERED: TOTAL PARENTERAL NUTRITION IV SCH ×10 (22:00)
[2019-02-27 23:00] VITALS: BP 128/65
--- NOTE | 2019-02-28 01:11 | NUR ---
Patient lying in bed, unwrapping the NG dempsey and putting it back on nose. "My nostril is so sore." Emptied 600cc brown liquid from NG container.
[2019-02-28] MEDS: HYDROmorphone 2 MG/ML VIAL IV PRN ×8 (01:56→23:26)
--- NOTE | 2019-02-28 01:57 | NUR ---
C/o pressure and sharp shooting pains in LUQ and RLQ and LLQ. Shooting pains from stoma to back. Also c/o continual hernia pain.
[2019-02-28 03:00] VITALS: BP 128/84
[2019-02-28] MEDS: ONDANSETRON PF 4 MG/2 ML VIAL. IV PRN (04:58)
[2019-02-28] MEDS: diphenhydrAMINE 50 MG/ML VIAL IVP PRN ×4 (05:06→23:25)
[2019-02-28 06:52] LABS: CALCIUM 8.7 mg/dL (8.5-10.1); CREATININE 0.8 mg/dL (0.6-1.0); GFR 79.9; POTASSIUM 3.2 mmol/L (3.5-5.1)
[2019-02-28 07:00] VITALS: BP 135/86
[2019-02-28] MEDS: PANTOPRAZOLE IV PUSH 40 MG VIAL. IVP SCH (08:03)
--- NOTE | 2019-02-28 09:29 | PDOC ---
KERRIE VARELA [employer] MACHINE 02/28/19 0929: SURGICAL PROGRESS NOTE Subjective 50cc out of ostomy still significant pain complaints of pain at hernia site Vital Signs Vital Signs Date Time Temp Pulse Resp B/P (MAP) Pulse Ox O2 Delivery O2 Flow Rate FiO2 02/28/19 08:38 16 Room Air 02/28/19 07:00 97.5 88 135/86 (102) 98 97.5 I&O Intake and Output 02/28/19 06:59 Output Total 4000 ml Balance -4000 ml Output Stool Total 100 ml Gastric Drainage Total 3900 ml # Voids 7 General: Alert, Oriented X3, Cooperative, No acute distress HEENT: Other (NG in place) Abdomen: Soft Labs Laboratory Tests Test 02/27/19 05:40 02/28/19 06:30 Sodium Level 140 mmol/L (136-145) 142 mmol/L (136-145) Potassium Level 3.4 mmol/L (3.5-5.1) 3.2 mmol/L (3.5-5.1) Chloride Level 99 mmol/L (98-107) 100 mmol/L (98-107) Carbon Dioxide Level 37 mmol/L (21-32) 37 mmol/L (21-32) Anion Gap 4 (6-14) 5 (6-14) Blood Urea Nitrogen 15 mg/dL (7-20) 16 mg/dL (7-20) Creatinine 0.8 mg/dL (0.6-1.0) 0.8 mg/dL (0.6-1.0) Estimated GFR (Cockcroft-Gault) 79.9 79.9 Glucose Level 87 mg/dL (70-99) 98 mg/dL (70-99) Calcium Level 8.5 mg/dL (8.5-10.1) 8.7 mg/dL (8.5-10.1) Phosphorus Level 4.1 mg/dL (2.6-4.7) Magnesium Level 2.2 mg/dL (1.8-2.4) Laboratory Tests Test 02/28/19 06:30 Sodium Level 142 mmol/L (136-145) Potassium Level 3.2 mmol/L (3.5-5.1) Chloride Level 100 mmol/L (98-107) Carbon Dioxide Level 37 mmol/L (21-32) Anion Gap 5 (6-14) Blood Urea Nitrogen 16 mg/dL (7-20) Creatinine 0.8 mg/dL (0.6-1.0) Estimated GFR (Cockcroft-Gault) 79.9 Glucose Level 98 mg/dL (70-99) Calcium Level 8.7 mg/dL (8.5-10.1) Problem List Problems Medical Problems: (1) Partial small bowel obstruction Status: Acute Assessment/Plan will await SBFT results OPAL MAI MD 02/28/19 1252: SURGICAL PROGRESS NOTE Assessment/Plan Reviewed SBFT showing contrast passing to ileostomy in 20 minutes no obstruction noted. Will D/C NGT in am. Agree with Siddhartha's assessment and plan. KERRIE VARELA APRN Feb 28, 2019 09:29 OPAL MAI MD Feb 28, 2019 12:52
[2019-02-28] MEDS ORDERED: IOHEXOL 300 MG/ML 100ML VIAL. PO ONE (09:45)
--- NOTE | 2019-02-28 10:50 | PDOC ---
Objective: Objective: Reviewed chart - ?some ostomy output, ongoing pain. On IV PPI, steroids, and TPN. Also Levaquin. Vital Signs: Vital Signs Date Time Temp Pulse Resp B/P (MAP) Pulse Ox O2 Delivery O2 Flow Rate FiO2 02/28/19 08:38 16 Room Air 02/28/19 07:00 97.5 88 135/86 (102) 98 97.5 Labs: Laboratory Tests Test 02/28/19 06:30 Sodium Level 142 mmol/L Potassium Level 3.2 mmol/L Chloride Level 100 mmol/L Carbon Dioxide Level 37 mmol/L Anion Gap 5 Blood Urea Nitrogen 16 mg/dL Creatinine 0.8 mg/dL Estimated GFR (Cockcroft-Gault) 79.9 Glucose Level 98 mg/dL Calcium Level 8.7 mg/dL Imaging: SBS 02/28 pending PE: out of room A/P: H/o Crohn's, multiple abd surgeries, SBO -- Await SBFT. ?need for Levaquin MARIA EUGENIA MO Feb 28, 2019 10:50
[2019-02-28] MEDS: methylPREDNISolone SOD SUCC PF 40 MG/ML VIAL. IV SCH (11:26)
--- NOTE | 2019-02-28 11:42 | RAD ---
Small bowel series, 02/28/2019: History: Crohn's disease, obstruction, previous bowel resections The study was performed utilizing nonionic contrast which was injected into the patient's NG tube. 0.8 minutes of fluoroscopy time is utilized. 3 fluoroscopic spot images were recorded. The NG tube tip lies in the body of the stomach. The small bowel loops are of normal caliber with no evidence of thickening of their folds. There was prompt appearance of contrast within the left lower quadrant ileostomy bag at 20 minutes. IMPRESSION: No current evidence of small bowel obstruction.
[2019-02-28] MEDS: POTASSIUM CHLORIDE 10MEQ 100 ML IV SCH ×2 (12:34→14:34)
[2019-02-28] MEDS: TPN PER PHARMACY MC PRN (13:40)
--- NOTE | 2019-02-28 13:47 | NUR ---
Pharmacy TPN Dosing Note S: MATTHEW HOLGUIN is a 39 year old F Currently receiving Central Continuous TPN started 02/24/19 B:Pertinent PMH: Partial SBO. No oral intake for long period of time. Height: 5 feet, 7 inches Weight: 72.266639 kg Current diet: NPO LABS: Sodium: 142 Potassium: 3.2 Chloride: 100 Calcium: 8.7 Corrected Calcium: 8.62 Magnesium: 2.2 (02/27) CO2: 37 SCr: 0.8 Glucose: 98 Albumin: 4.1 AST: 24 (02/21) ALT: 32 (02/21) TPN FORMULA: TPN TYPE: Central Continuous AMINO ACIDS: 70 gm DEXTROSE: 250 gm LIPIDS: 30 gm SODIUM CHLORIDE: 90 mEq SODIUM ACETATE: - mEq SODIUM PHOSPHATE: - mmol POTASSIUM CHLORIDE: 60 mEq POTASSIUM ACETATE: - mEq POTASSIUM PHOSPHATE: 16 mmol MAGNESIUM: 15 mEq CALCIUM: 10 mEq INSULIN: units MULTIPLE VITAMIN: 10 ml TRACE ELEMENTS: 1ml ml(s) TPN PLAN: -Continue same macros per wire preparation worker -Potassium low this AM. Patient given 20 mEq IV outside of TPN. Will increase potassium in TPN. -Confirmed with ELIZABETH Iraheta patient noted to have increased gastric drainage, however per surgery after review of SBFT no obstruction was noted and surgery plans to D/C NGT in AM. -BMP, Mag and Phos ordered for 03/01/19 R: Continue TPN increase in potassium chloride Will monitor electrolytes, glucose, and tolerance to TPN. JEFFREY PRADO, [facility], 02/28/19 0657
--- NOTE | 2019-02-28 14:37 | PDOC ---
PROGRESS NOTES Chief Complaint Chief Complaint Assessment H/o Crohn's, multiple abd surgeries ( at least 20 x ex lap - mid umbilical scar) Indwelling left sided colostomy N/v, abd pain, decreased ostomy output, weight loss Chronic pain LE swelling Hypokalemia History of Present Illness History of Present Illness TPN since nothing by mouth for a long time TPN per pharmacy-to run via her indwelling Port-A-Cath Bowel rest SBFT showing contrast passing to ileostomy in 20 minutes no obstruction noted. plan to dc NG tube samir per sx continue levaquin and IV steroids replace K via IV route Vitals Vitals Vital Signs Date Time Temp Pulse Resp B/P (MAP) Pulse Ox O2 Delivery O2 Flow Rate FiO2 02/28/19 13:03 16 Room Air 02/28/19 07:00 97.5 88 135/86 (102) 98 97.5 Physical Exam General: Alert, Oriented X3, Cooperative, No acute distress Heart: Other (NG in place with bile tinged output) Lungs: Clear Abdomen: Soft Extremities: No clubbing, No cyanosis, No edema, Normal pulses, No tenderness/ swelling Skin: No rashes, No breakdown, No significant lesion Labs LABS Laboratory Tests Test 02/28/19 06:30 Sodium Level 142 mmol/L (136-145) Potassium Level 3.2 mmol/L (3.5-5.1) Chloride Level 100 mmol/L (98-107) Carbon Dioxide Level 37 mmol/L (21-32) Anion Gap 5 (6-14) Blood Urea Nitrogen 16 mg/dL (7-20) Creatinine 0.8 mg/dL (0.6-1.0) Estimated GFR (Cockcroft-Gault) 79.9 Glucose Level 98 mg/dL (70-99) Calcium Level 8.7 mg/dL (8.5-10.1) Assessment and Plan Assessmemt and Plan Problems Medical Problems: (1) Partial small bowel obstruction Status: Acute Comment Review of Relevant I have reviewed the following items kathy (where applicable) has been applied. Labs Laboratory Tests Test 02/27/19 05:40 02/28/19 06:30 Sodium Level 140 mmol/L (136-145) 142 mmol/L (136-145) Potassium Level 3.4 mmol/L (3.5-5.1) 3.2 mmol/L (3.5-5.1) Chloride Level 99 mmol/L (98-107) 100 mmol/L (98-107) Carbon Dioxide Level 37 mmol/L (21-32) 37 mmol/L (21-32) Anion Gap 4 (6-14) 5 (6-14) Blood Urea Nitrogen 15 mg/dL (7-20) 16 mg/dL (7-20) Creatinine 0.8 mg/dL (0.6-1.0) 0.8 mg/dL (0.6-1.0) Estimated GFR (Cockcroft-Gault) 79.9 79.9 Glucose Level 87 mg/dL (70-99) 98 mg/dL (70-99) Calcium Level 8.5 mg/dL (8.5-10.1) 8.7 mg/dL (8.5-10.1) Phosphorus Level 4.1 mg/dL (2.6-4.7) Magnesium Level 2.2 mg/dL (1.8-2.4) Laboratory Tests Test 02/28/19 06:30 Sodium Level 142 mmol/L (136-145) Potassium Level 3.2 mmol/L (3.5-5.1) Chloride Level 100 mmol/L (98-107) Carbon Dioxide Level 37 mmol/L (21-32) Anion Gap 5 (6-14) Blood Urea Nitrogen 16 mg/dL (7-20) Creatinine 0.8 mg/dL (0.6-1.0) Estimated GFR (Cockcroft-Gault) 79.9 Glucose Level 98 mg/dL (70-99) Calcium Level 8.7 mg/dL (8.5-10.1) Medications Current Medications Hydromorphone HCl (Dilaudid) 0.5 mg 1X ONCE IV Last administered on 02/21/19at 22:47; Start 02/21/19 at 22:30; Stop 02/21/19 at 22:31; Status DC Ondansetron HCl (Zofran) 4 mg 1X ONCE IV Last administered on 02/21/19at 22:46 ; Start 02/21/19 at 22:30; Stop 02/21/19 at 22:31; Status DC Sodium Chloride (NORMAL SALINE FLUSH for STERILE FIELD) 10 ml Needium-MED ONCE .ROUTE ; Start 02/21/19 at 22:22; Stop 02/21/19 at 22:23; Status DC Hydromorphone HCl (Dilaudid) 0.5 mg 1X ONCE IV Last administered on 02/22/19at 00:12; Start 02/22/19 at 00:00; Stop 02/22/19 at 00:01; Status DC Ondansetron HCl (Zofran) 4 mg 1X ONCE IV Last administered on 02/22/19at 00:12 ; Start 02/22/19 at 00:00; Stop 02/22/19 at 00:01; Status DC Ondansetron HCl (Zofran) 4 mg PRN Q8HRS PRN IV NAUSEA/VOMITING 1ST CHOICE Last administered on 02/22/19at 04:20; Start 02/22/19 at 00:00; Stop 02/22/19 at 09:33 ; Status DC Morphine Sulfate (Morphine Sulfate) 4 mg PRN Q2HR PRN IV SEVERE PAIN; Start 10/31 at 00:00; Stop 02/22/19 at 04:50; Status DC Benzocaine (Hurricaine One) 1 spray 1X ONCE MM Last administered on 02/22/19at 00:12; Start 02/22/19 at 00:30; Stop 02/22/19 at 00:31; Status DC Hydromorphone HCl (Dilaudid) 1.5 mg PRN Q6HRS PRN IV SEVERE PAIN Last administered on 02/22/19at 08:11; Start 02/22/19 at 01:30; Stop 02/22/19 at 12:21 ; Status DC Sodium Chloride 1,000 ml @ 125 mls/hr Q8H IV Last administered on 02/22/19at 06 :03; Start 02/22/19 at 06:00; Stop 02/22/19 at 09:33; Status DC Hydromorphone HCl (Dilaudid) 1 mg 1X ONCE IV Last administered on 02/22/19at 06 :02; Start 02/22/19 at 06:00; Stop 02/22/19 at 06:01; Status DC Ondansetron HCl (Zofran) 4 mg PRN Q6HRS PRN IV NAUSEA/VOMITING 1ST CHOICE Last administered on 02/28/19at 04:58; Start 02/22/19 at 09:45 Diphenhydramine HCl (Benadryl) 25 mg PRN QHS PRN IVP sleep Last administered on 02/22/19 12:45; Start 02/22/19 at 09:45; Stop 02/22/19 at 18:41; Status DC Potassium Chloride/Dextrose/ Sod Cl 1,000 ml @ 100 mls/hr 1X ONCE IV Last administered on 02/22/19 10:51; Start 02/22/19 at 10:30; Stop 02/22/19 at 20:29 ; Status DC Pantoprazole Sodium (PROTONIX VIAL for IV PUSH) 40 mg DAILYAC IVP Last administered on 02/28/19 08:03; Start 02/22/19 at 11:30 Methylprednisolone Sodium Succinate (SOLU-Medrol 40MG VIAL) 20 mg Q12HR IV Last administered on 02/26/19 10:10; Start 02/22/19 at 12:00; Stop 02/26/19 at 12:28; Status DC Hydromorphone HCl (Dilaudid) 1.5 mg PRN Q4HRS PRN IV SEVERE PAIN Last administered on 02/23/19at 21:12; Start 02/22/19 at 12:30; Stop 02/23/19 at 22:58 ; Status DC Diphenhydramine HCl (Benadryl) 25 mg PRN Q6HRS PRN IVP ITCHING Last administered on 02/28/19 11:14; Start 02/22/19 at 12:45 Sodium Chloride 1,000 ml @ 100 mls/hr Q10H IV Last administered on 02/24/19at 14:22; Start 02/22/19 at 22:00; Stop 02/25/19 at 10:25; Status DC Levofloxacin/ Dextrose 100 ml @ 100 mls/hr Q24H IV Last administered on 21:03; Start 02/23/19 at 21:00 Hydromorphone HCl (Dilaudid) 2 mg PRN Q3HRS PRN IV SEVERE PAIN Last administered on 02/28/19 11:14; Start 02/23/19 at 22:55 Info (Tpn Per Pharmacy) 1 each PRN DAILY PRN MC SEE COMMENTS Last administered on 02/28/19at 13:40; Start 02/24/19 at 08:15 Cyanocobalamin (Vitamin B-12) 1,000 mcg 1X STAT IM Last administered on at 12:06; Start 02/24/19 at 10:05; Stop 02/24/19 at 10:08; Status DC Sodium Chloride 90 meq/Potassium Chloride 50 meq/ Potassium Phosphate 16 mmol/ Magnesium Sulfate 10 meq/Calcium Gluconate 10 meq/ Multivitamins 10 ml/Chromium / Copper/Manganese/ Seleni/Zn 1 ml/ Total Parenteral Nutrition/Amino Acids/ Dextrose/ Fat Emulsion Intravenous 1,512 ml @ 63 mls/hr TPN CONT IV Last administered on 02/24/19at 22:25; Start 02/24/19 at 22:00; Stop 02/26/19 at 00:37 ; Status DC Diphenhydramine HCl (Benadryl) 50 mg 1X ONCE IVP Last administered on at 02:16; Start 02/25/19 at 02:00; Stop 02/25/19 at 02:01; Status DC Sodium Chloride 90 meq/Potassium Chloride 50 meq/ Potassium Phosphate 16 mmol/ Magnesium Sulfate 15 meq/Calcium Gluconate 10 meq/ Multivitamins 10 ml/Chromium / Copper/Manganese/ Seleni/Zn 1 ml/ Total Parenteral Nutrition/Amino Acids/ Dextrose/ Fat Emulsion Intravenous 1,512 ml @ 63 mls/hr TPN CONT IV ; Start at 22:00; Stop 02/26/19 at 21:59; Status DC Iohexol (Omnipaque 300 Mg/ml) 400 ml 1X ONCE PO ; Start 02/26/19 at 08:15; Stop 02/26/19 at 08:16; Status UNV Methylprednisolone Sodium Succinate (SOLU-Medrol 40MG VIAL) 20 mg DAILY IV Last administered on 02/28/19at 11:26; Start 02/27/19 at 09:00 Sodium Chloride 90 meq/Potassium Chloride 50 meq/ Potassium Phosphate 16 mmol/ Magnesium Sulfate 15 meq/Calcium Gluconate 10 meq/ Multivitamins 10 ml/Chromium / Copper/Manganese/ Seleni/Zn 1 ml/ Total Parenteral Nutrition/Amino Acids/ Dextrose/ Fat Emulsion Intravenous 1,512 ml @ 63 mls/hr TPN CONT IV Last administered on 02/26/19at 22:38; Start 02/26/19 at 22:00; Stop 02/27/19 at 21:59 ; Status DC Furosemide (Lasix) 10 mg DAILY IVP Last administered on 02/27/19at 08:36; Start 02/26/19 at 16:00; Stop 02/27/19 at 10:26; Status DC Iohexol (Omnipaque 300 Mg/ml) 400 ml 1X ONCE PO Last administered on at 10:00; Start 02/27/19 at 08:45; Stop 02/27/19 at 09:01; Status DC Sodium Chloride 90 meq/Potassium Chloride 50 meq/ Potassium Phosphate 16 mmol/ Magnesium Sulfate 15 meq/Calcium Gluconate 10 meq/ Multivitamins 10 ml/Chromium / Copper/Manganese/ Seleni/Zn 1 ml/ Total Parenteral Nutrition/Amino Acids/ Dextrose/ Fat Emulsion Intravenous 1,512 ml @ 63 mls/hr TPN CONT IV Last administered on 02/27/19at 22:59; Start 02/27/19 at 22:00; Stop 02/28/19 at 21:59 Iohexol (Omnipaque 300 Mg/ml) 400 ml 1X ONCE PO Last administered on at 09:45; Start 02/28/19 at 09:45; Stop 02/28/19 at 09:46; Status DC Potassium Chloride/Water 100 ml @ 100 mls/hr Q1H IV Last administered on at 12:34; Start 02/28/19 at 11:00; Stop 02/28/19 at 12:59; Status DC Sodium Chloride 90 meq/Potassium Chloride 60 meq/ Potassium Phosphate 16 mmol/ Magnesium Sulfate 15 meq/Calcium Gluconate 10 meq/ Multivitamins 10 ml/Chromium / Copper/Manganese/ Seleni/Zn 1 ml/ Total Parenteral Nutrition/Amino Acids/ Dextrose/ Fat Emulsion Intravenous 1,512 ml @ 63 mls/hr TPN CONT IV ; Start at 22:00; Stop 03/01/19 at 21:59 Active Scripts Active Reported [dilaudid liquid] 1.5 Mg PO PRN Q8HRS PRN [ferous sulfate] Mg PO DAILY [vitamin B12 inject.] MONTHLY Vitamin D3 (Cholecalciferol (Vitamin D3)) 5,000 Unit Tablet 5,000 Unit PO WEEKLY Tablet (Pnv Cmb#95/Ferrous Fumarate/Fa) 1 Each Tablet 1 Tab PO DAILY Benadryl (Diphenhydramine Hcl) 25 Mg Capsule 25 Mg PO PRN Q4-6HRS PRN Zofran Odt (Ondansetron) 4 Mg Tab.rapdis 4 Mg PO BID PRN Biotin 10,000 Mcg Tab.rapdis 10,000 Mcg PO DAILY Simethicone 125 Mg Capsule 125 Mg PO PRN DAILY PRN Pantoprazole Sodium 40 Mg Tablet.dr 40 Mg PO DAILY Clonazepam 1 Mg Tablet 1 Tab PO PRN BID PRN Vitals/I & O Vital Sign - Last 24 Hours 02/27/19 02/27/19 02/27/19 02/27/19 15:00 16:40 19:00 19:47 Temp 98.2 97.5 98.2 97.5 Pulse 100 85 Resp 18 18 24 B/P (MAP) 143/91 (108) 128/91 (103) Pulse Ox 95 94 O2 Delivery Room Air Room Air Room Air Room Air 02/27/19 02/27/19 02/28/19 02/28/19 22:49 23:00 01:56 03:00 Temp 97.5 97.5 97.5 97.5 Pulse 87 76 Resp 20 18 20 18 B/P (MAP) 128/65 (86) 128/84 (99) Pulse Ox 97 96 O2 Delivery Room Air Room Air Room Air Room Air 02/28/19 02/28/19 02/28/19 02/28/19 04:56 07:00 08:00 08:03 Temp 97.5 97.5 Pulse 88 Resp 24 18 16 B/P (MAP) 135/86 (102) Pulse Ox 98 O2 Delivery Room Air Room Air Room Air Room Air 02/28/19 02/28/19 11:14 13:03 Resp 16 16 O2 Delivery Room Air Room Air Intake and Output 02/27/19 02/27/19 02/28/19 15:00 23:00 07:00 Output Total 850 ml 1750 ml Balance -850 ml -1750 ml YUKI HANCOCK MD Feb 28, 2019 14:37
[2019-02-28 15:00] VITALS: BP 137/98
[2019-02-28] MEDS ORDERED: FUROSEMIDE 20 MG/2 ML VIAL. IVP PRN (15:15)
[2019-02-28] MEDS ORDERED: FUROSEMIDE 20 MG/2 ML VIAL. IVP ONE (15:15)
--- NOTE | 2019-02-28 16:38 | NUR ---
Tap water enema preformed, were able to get 140mL in. Patient tolerated procedure with minimal pain.
--- NOTE | 2019-02-28 18:15 | NUR ---
RN witnessed patient taking juice's out of refrigerator. Patient re-educated that she is NPO and can not drink anything. Patients output for this whole day shift was 1200mL.
[2019-02-28 19:00] VITALS: BP 150/99
[2019-02-28] MEDS ORDERED: DEXTROSE 70% IV SCH ×10 (22:00)
[2019-02-28] MEDS ORDERED: AMINO ACID IV SCH ×10 (22:00)
[2019-02-28] MEDS ORDERED: TOTAL PARENTERAL NUTRITION IV SCH ×10 (22:00)
[2019-02-28] MEDS ORDERED: [UNRECOGNIZED DRUG - OTHER] IV SCH ×10 (22:00)
[2019-02-28 23:00] VITALS: BP 120/79
[2019-03-01] MEDS: HYDROmorphone 2 MG/ML VIAL IV PRN ×7 (02:32→21:14)
[2019-03-01] MEDS: ONDANSETRON PF 4 MG/2 ML VIAL. IV PRN ×4 (02:46→21:14)
[2019-03-01 03:00] VITALS: BP 141/99
--- NOTE | 2019-03-01 05:30 | NUR ---
Patient 's output thru NG tube for overnight cashier was 1900cc. Patient was seen getting into refrigerator and removing juice. Reinforced prior education that she is NPO and she should not drink and fluids. Patient became upset with this nurse and starting crying. Patient voiced concern about the nursing staff being judgemental,condescending to her and not believing what she reports to nursing staff. Will inform Doctors of patient behavior and her refusal to remain NPO as ordered.
[2019-03-01] MEDS: diphenhydrAMINE 50 MG/ML VIAL IVP PRN ×3 (05:37→17:42)
[2019-03-01 06:05] LABS: CALCIUM 8.6 mg/dL (8.5-10.1); CREATININE 0.8 mg/dL (0.6-1.0); GFR 79.9; MAGNESIUM 2.2 mg/dL (1.8-2.4); PHOSPHORUS 3.6 mg/dL (2.6-4.7); POTASSIUM 3.5 mmol/L (3.5-5.1)
[2019-03-01 07:00] VITALS: BP 133/93
[2019-03-01] MEDS: PANTOPRAZOLE IV PUSH 40 MG VIAL. IVP SCH (07:57)
[2019-03-01] MEDS: methylPREDNISolone SOD SUCC PF 40 MG/ML VIAL. IV SCH (08:42)
--- NOTE | 2019-03-01 09:01 | PDOC ---
Subjective: Subjective: Ongoing pain. Says ~100cc of water from ostomy after enema yesterday. Thinks never passed contrast. NG is clamped - pain is worse around ostomy now. Ankles still swollen. Worried about being dehydrated. Objective: Objective: Reviewed chart and d/w RNs - pt was drinking Sprite, juice, and Ensure yesterday. Vital Signs: Vital Signs Date Time Temp Pulse Resp B/P (MAP) Pulse Ox O2 Delivery O2 Flow Rate FiO2 03/01/19 08:43 Room Air 03/01/19 07:00 97.7 93 16 133/93 (106) 96 97.7 Labs: Laboratory Tests Test 03/01/19 05:30 Sodium Level 141 mmol/L Potassium Level 3.5 mmol/L Chloride Level 102 mmol/L Carbon Dioxide Level 36 mmol/L Anion Gap 3 Blood Urea Nitrogen 16 mg/dL Creatinine 0.8 mg/dL Estimated GFR (Cockcroft-Gault) 79.9 Glucose Level 132 mg/dL Calcium Level 8.6 mg/dL Phosphorus Level 3.6 mg/dL Magnesium Level 2.2 mg/dL PE: GEN: NAD LUNGS: CTAB HEART: RRR ABD: hyperactive BS to left, less so to right around ostomy, measuring machine tender throughout EXTREM: bilateral pitting edema NEURO/PSYCH: A & O 3, tearful A/P: H/o Crohn's, multiple abd surgeries, chronic pain, pSBO (no obstruction on SBFT) Bilateral pedal edema -- Non-compliant w/ NPO. NG now clamped, await response. Ongoing complaints including concern for LE swelling (so re-started Lasix yesterday), but now concern for dehydration (similar complaints earlier this week which is why Lasix was stopped). Has low dose IV Lasix PRN, BMP ok as above. Reviewed w/ Dr. Burch - check MARY. MARIA EUGENIA MO Mar 01, 2019 09:01
--- NOTE | 2019-03-01 09:05 | PDOC ---
SURGICAL PROGRESS NOTE Subjective Patient complains of lower abdominal pain mostly on the right side where previous stoma had been placed. She's had a little bit more out of her ileostomy Vital Signs Vital Signs Date Time Temp Pulse Resp B/P (MAP) Pulse Ox O2 Delivery O2 Flow Rate FiO2 03/01/19 08:43 Room Air 03/01/19 07:00 97.7 93 16 133/93 (106) 96 97.7 I&O Intake and Output 03/01/19 06:59 Intake Total 1953 ml Output Total 2755 ml Balance -802 ml IV Total 756 ml Other 1197 ml Output Stool Total 155 ml Gastric Drainage Total 2600 ml # Voids 5 PATIENT HAS A VEGAS: No General: Alert, Oriented X3, Cooperative, mild distress Abdomen: Normal bowel sounds, Soft, Other (diffusely tender no peritoneal signs about 100 mL of bilious output and her ileostomy.) Labs Laboratory Tests Test 02/28/19 06:30 03/01/19 05:30 Sodium Level 142 mmol/L (136-145) 141 mmol/L (136-145) Potassium Level 3.2 mmol/L (3.5-5.1) 3.5 mmol/L (3.5-5.1) Chloride Level 100 mmol/L (98-107) 102 mmol/L (98-107) Carbon Dioxide Level 37 mmol/L (21-32) 36 mmol/L (21-32) Anion Gap 5 (6-14) 3 (6-14) Blood Urea Nitrogen 16 mg/dL (7-20) 16 mg/dL (7-20) Creatinine 0.8 mg/dL (0.6-1.0) 0.8 mg/dL (0.6-1.0) Estimated GFR (Cockcroft-Gault) 79.9 79.9 Glucose Level 98 mg/dL (70-99) 132 mg/dL (70-99) Calcium Level 8.7 mg/dL (8.5-10.1) 8.6 mg/dL (8.5-10.1) Phosphorus Level 3.6 mg/dL (2.6-4.7) Magnesium Level 2.2 mg/dL (1.8-2.4) Laboratory Tests Test 03/01/19 05:30 Sodium Level 141 mmol/L (136-145) Potassium Level 3.5 mmol/L (3.5-5.1) Chloride Level 102 mmol/L (98-107) Carbon Dioxide Level 36 mmol/L (21-32) Anion Gap 3 (6-14) Blood Urea Nitrogen 16 mg/dL (7-20) Creatinine 0.8 mg/dL (0.6-1.0) Estimated GFR (Cockcroft-Gault) 79.9 Glucose Level 132 mg/dL (70-99) Calcium Level 8.6 mg/dL (8.5-10.1) Phosphorus Level 3.6 mg/dL (2.6-4.7) Magnesium Level 2.2 mg/dL (1.8-2.4) I have reviewed the following Small bowel follow-through does not show obstruction transversed her small bowel to the ileostomy without difficulty and about 20 minutes Problem List Problems Medical Problems: (1) Partial small bowel obstruction Status: Acute Assessment/Plan Crohn's disease with multiple abdominal surgeries small bowel follow-through transverse to ileostomy. We'll clamp NG tube today if tolerated DC in the a.m. No surgical plans at this time OPAL MAI MD Mar 01, 2019 09:05
[2019-03-01 11:00] VITALS: BP 126/85
--- NOTE | 2019-03-01 11:30 | RAD ---
MARY, 03/01/2019: HISTORY: Follow-up small bowel series An NG tube remains in place extending into the body of the stomach. No dilated gas-filled bowel is evident. There is no significant residual contrast material in the GI tract from yesterday's small bowel series. There is no evidence organomegaly. IMPRESSION: 1. The NG tube is in satisfactory position. 2. No evidence of significant small bowel obstruction. Electronically signed by: Jim Zuñiga MD (03/01/2019 11:28 AM) [facility]
--- NOTE | 2019-03-01 12:30 | PDOC ---
PROGRESS NOTES Chief Complaint Chief Complaint Abdominal pain History of Present Illness History of Present Illness Patient was resting comfortably in bed today. 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 She still complains of nausea, vomiting, and abdominal pain. She states she is having limited output from her colostomy site. She has an NG tube in place but it is clamped at this time. She still has symptoms of a small bowel obstruction. SBFT was performed on 02/28 which showed no obstruction. She is doing NG suctioning PRN. Vitals Vitals Vital Signs Date Time Temp Pulse Resp B/P (MAP) Pulse Ox O2 Delivery O2 Flow Rate FiO2 03/01/19 11:51 Room Air 03/01/19 11:00 98.4 101 16 126/85 (99) 92 98.4 Physical Exam General: Alert, Oriented X3, Cooperative, mild distress Heart: Regular rate, Normal S1, Normal S2, No murmurs, Other (NG in place with bile tinged output) Lungs: Clear (No wheezes, rales, or rhonchi) Abdomen: Normal bowel sounds, Soft, Other (diffusely tender, hernia at old right ostomy site) Extremities: No edema, Normal pulses, No tenderness/swelling Skin: No rashes, No breakdown, No significant lesion Labs LABS Laboratory Tests Test 03/01/19 05:30 Sodium Level 141 mmol/L (136-145) Potassium Level 3.5 mmol/L (3.5-5.1) Chloride Level 102 mmol/L (98-107) Carbon Dioxide Level 36 mmol/L (21-32) Anion Gap 3 (6-14) Blood Urea Nitrogen 16 mg/dL (7-20) Creatinine 0.8 mg/dL (0.6-1.0) Estimated GFR (Cockcroft-Gault) 79.9 Glucose Level 132 mg/dL (70-99) Calcium Level 8.6 mg/dL (8.5-10.1) Phosphorus Level 3.6 mg/dL (2.6-4.7) Magnesium Level 2.2 mg/dL (1.8-2.4) Review of Systems Review of Systems Patient complains of N/V and abdominal pain. She denies fevers, chills, CP, and SOB. Assessment and Plan Assessmemt and Plan Problems Medical Problems: (1) Partial small bowel obstruction Status: Acute Assessment: H/o Crohn's, multiple abd surgeries ( at least 20 x ex lap - mid umbilical scar) Indwelling left sided colostomy N/v, abd pain, decreased ostomy output, weight loss Chronic pain LE swelling Hypokalemia Plan: NG suctioning PRN TPN Dilaudid for pain management Levofloxacin F/u labs Continue home meds PT/OT Ambulation for DVT prophylaxis Comment Review of Relevant I have reviewed the following items kathy (where applicable) has been applied. Labs Laboratory Tests Test 02/28/19 06:30 03/01/19 05:30 Sodium Level 142 mmol/L (136-145) 141 mmol/L (136-145) Potassium Level 3.2 mmol/L (3.5-5.1) 3.5 mmol/L (3.5-5.1) Chloride Level 100 mmol/L (98-107) 102 mmol/L (98-107) Carbon Dioxide Level 37 mmol/L (21-32) 36 mmol/L (21-32) Anion Gap 5 (6-14) 3 (6-14) Blood Urea Nitrogen 16 mg/dL (7-20) 16 mg/dL (7-20) Creatinine 0.8 mg/dL (0.6-1.0) 0.8 mg/dL (0.6-1.0) Estimated GFR (Cockcroft-Gault) 79.9 79.9 Glucose Level 98 mg/dL (70-99) 132 mg/dL (70-99) Calcium Level 8.7 mg/dL (8.5-10.1) 8.6 mg/dL (8.5-10.1) Phosphorus Level 3.6 mg/dL (2.6-4.7) Magnesium Level 2.2 mg/dL (1.8-2.4) Laboratory Tests Test 03/01/19 05:30 Sodium Level 141 mmol/L (136-145) Potassium Level 3.5 mmol/L (3.5-5.1) Chloride Level 102 mmol/L (98-107) Carbon Dioxide Level 36 mmol/L (21-32) Anion Gap 3 (6-14) Blood Urea Nitrogen 16 mg/dL (7-20) Creatinine 0.8 mg/dL (0.6-1.0) Estimated GFR (Cockcroft-Gault) 79.9 Glucose Level 132 mg/dL (70-99) Calcium Level 8.6 mg/dL (8.5-10.1) Phosphorus Level 3.6 mg/dL (2.6-4.7) Magnesium Level 2.2 mg/dL (1.8-2.4) Medications Current Medications Hydromorphone HCl (Dilaudid) 0.5 mg 1X ONCE IV Last administered on 02/21/19at 22:47; Start 02/21/19 at 22:30; Stop 02/21/19 at 22:31; Status DC Ondansetron HCl (Zofran) 4 mg 1X ONCE IV Last administered on 02/21/19at 22:46 ; Start 02/21/19 at 22:30; Stop 02/21/19 at 22:31; Status DC Sodium Chloride (NORMAL SALINE FLUSH for STERILE FIELD) 10 ml hdl therapeuticsK-MED ONCE .ROUTE ; Start 02/21/19 at 22:22; Stop 02/21/19 at 22:23; Status DC Hydromorphone HCl (Dilaudid) 0.5 mg 1X ONCE IV Last administered on 02/22/19at 00:12; Start 02/22/19 at 00:00; Stop 02/22/19 at 00:01; Status DC Ondansetron HCl (Zofran) 4 mg 1X ONCE IV Last administered on 02/22/19at 00:12 ; Start 02/22/19 at 00:00; Stop 02/22/19 at 00:01; Status DC Ondansetron HCl (Zofran) 4 mg PRN Q8HRS PRN IV NAUSEA/VOMITING 1ST CHOICE Last administered on 02/22/19at 04:20; Start 02/22/19 at 00:00; Stop 02/22/19 at 09:33 ; Status DC Morphine Sulfate (Morphine Sulfate) 4 mg PRN Q2HR PRN IV SEVERE PAIN; Start 10/31 at 00:00; Stop 02/22/19 at 04:50; Status DC Benzocaine (Hurricaine One) 1 spray 1X ONCE MM Last administered on 02/22/19at 00:12; Start 02/22/19 at 00:30; Stop 02/22/19 at 00:31; Status DC Hydromorphone HCl (Dilaudid) 1.5 mg PRN Q6HRS PRN IV SEVERE PAIN Last administered on 02/22/19 08:11; Start 02/22/19 at 01:30; Stop 02/22/19 at 12:21 ; Status DC Sodium Chloride 1,000 ml @ 125 mls/hr Q8H IV Last administered on 02/22/19 06 :03; Start 02/22/19 at 06:00; Stop 02/22/19 at 09:33; Status DC Hydromorphone HCl (Dilaudid) 1 mg 1X ONCE IV Last administered on 02/22/19 06 :02; Start 02/22/19 at 06:00; Stop 02/22/19 at 06:01; Status DC Ondansetron HCl (Zofran) 4 mg PRN Q6HRS PRN IV NAUSEA/VOMITING 1ST CHOICE Last administered on 03/01/19 08:44; Start 02/22/19 at 09:45 Diphenhydramine HCl (Benadryl) 25 mg PRN QHS PRN IVP sleep Last administered on 02/22/19 12:45; Start 02/22/19 at 09:45; Stop 02/22/19 at 18:41; Status DC Potassium Chloride/Dextrose/ Sod Cl 1,000 ml @ 100 mls/hr 1X ONCE IV Last administered on 02/22/19 10:51; Start 02/22/19 at 10:30; Stop 02/22/19 at 20:29 ; Status DC Pantoprazole Sodium (PROTONIX VIAL for IV PUSH) 40 mg DAILYAC IVP Last administered on 03/01/19 07:57; Start 02/22/19 at 11:30 Methylprednisolone Sodium Succinate (SOLU-Medrol 40MG VIAL) 20 mg Q12HR IV Last administered on 02/26/19 10:10; Start 02/22/19 at 12:00; Stop 02/26/19 at 12:28; Status DC Hydromorphone HCl (Dilaudid) 1.5 mg PRN Q4HRS PRN IV SEVERE PAIN Last administered on 02/23/19at 21:12; Start 02/22/19 at 12:30; Stop 02/23/19 at 22:58 ; Status DC Diphenhydramine HCl (Benadryl) 25 mg PRN Q6HRS PRN IVP ITCHING Last administered on 03/01/19 11:51; Start 02/22/19 at 12:45 Sodium Chloride 1,000 ml @ 100 mls/hr Q10H IV Last administered on 02/24/19 14:22; Start 02/22/19 at 22:00; Stop 02/25/19 at 10:25; Status DC Levofloxacin/ Dextrose 100 ml @ 100 mls/hr Q24H IV Last administered on 21:21; Start 02/23/19 at 21:00 Hydromorphone HCl (Dilaudid) 2 mg PRN Q3HRS PRN IV SEVERE PAIN Last administered on 03/01/19 11:51; Start 02/23/19 at 22:55 Info (Tpn Per Pharmacy) 1 each PRN DAILY PRN MC SEE COMMENTS Last administered on 02/28/19 13:40; Start 02/24/19 at 08:15 Cyanocobalamin (Vitamin B-12) 1,000 mcg 1X STAT IM Last administered on 12:06; Start 02/24/19 at 10:05; Stop 02/24/19 at 10:08; Status DC Sodium Chloride 90 meq/Potassium Chloride 50 meq/ Potassium Phosphate 16 mmol/ Magnesium Sulfate 10 meq/Calcium Gluconate 10 meq/ Multivitamins 10 ml/Chromium / Copper/Manganese/ Seleni/Zn 1 ml/ Total Parenteral Nutrition/Amino Acids/ Dextrose/ Fat Emulsion Intravenous 1,512 ml @ 63 mls/hr TPN CONT IV Last administered on 02/24/19at 22:25; Start 02/24/19 at 22:00; Stop 02/26/19 at 00:37 ; Status DC Diphenhydramine HCl (Benadryl) 50 mg 1X ONCE IVP Last administered on 02:16; Start 02/25/19 at 02:00; Stop 02/25/19 at 02:01; Status DC Sodium Chloride 90 meq/Potassium Chloride 50 meq/ Potassium Phosphate 16 mmol/ Magnesium Sulfate 15 meq/Calcium Gluconate 10 meq/ Multivitamins 10 ml/Chromium / Copper/Manganese/ Seleni/Zn 1 ml/ Total Parenteral Nutrition/Amino Acids/ Dextrose/ Fat Emulsion Intravenous 1,512 ml @ 63 mls/hr TPN CONT IV ; Start at 22:00; Stop 02/26/19 at 21:59; Status DC Iohexol (Omnipaque 300 Mg/ml) 400 ml 1X ONCE PO ; Start 02/26/19 at 08:15; Stop 02/26/19 at 08:16; Status UNV Methylprednisolone Sodium Succinate (SOLU-Medrol 40MG VIAL) 20 mg DAILY IV Last administered on 03/01/19at 08:42; Start 02/27/19 at 09:00 Sodium Chloride 90 meq/Potassium Chloride 50 meq/ Potassium Phosphate 16 mmol/ Magnesium Sulfate 15 meq/Calcium Gluconate 10 meq/ Multivitamins 10 ml/Chromium / Copper/Manganese/ Seleni/Zn 1 ml/ Total Parenteral Nutrition/Amino Acids/ Dextrose/ Fat Emulsion Intravenous 1,512 ml @ 63 mls/hr TPN CONT IV Last administered on 02/26/19at 22:38; Start 02/26/19 at 22:00; Stop 02/27/19 at 21:59 ; Status DC Furosemide (Lasix) 10 mg DAILY IVP Last administered on 02/27/19at 08:36; Start 02/26/19 at 16:00; Stop 02/27/19 at 10:26; Status DC Iohexol (Omnipaque 300 Mg/ml) 400 ml 1X ONCE PO Last administered on at 10:00; Start 02/27/19 at 08:45; Stop 02/27/19 at 09:01; Status DC Sodium Chloride 90 meq/Potassium Chloride 50 meq/ Potassium Phosphate 16 mmol/ Magnesium Sulfate 15 meq/Calcium Gluconate 10 meq/ Multivitamins 10 ml/Chromium / Copper/Manganese/ Seleni/Zn 1 ml/ Total Parenteral Nutrition/Amino Acids/ Dextrose/ Fat Emulsion Intravenous 1,512 ml @ 63 mls/hr TPN CONT IV Last administered on 02/27/19at 22:59; Start 02/27/19 at 22:00; Stop 02/28/19 at 21:59 ; Status DC Iohexol (Omnipaque 300 Mg/ml) 400 ml 1X ONCE PO Last administered on at 09:45; Start 02/28/19 at 09:45; Stop 02/28/19 at 09:46; Status DC Potassium Chloride/Water 100 ml @ 100 mls/hr Q1H IV Last administered on at 14:34; Start 02/28/19 at 11:00; Stop 02/28/19 at 12:59; Status DC Sodium Chloride 90 meq/Potassium Chloride 60 meq/ Potassium Phosphate 16 mmol/ Magnesium Sulfate 15 meq/Calcium Gluconate 10 meq/ Multivitamins 10 ml/Chromium / Copper/Manganese/ Seleni/Zn 1 ml/ Total Parenteral Nutrition/Amino Acids/ Dextrose/ Fat Emulsion Intravenous 1,512 ml @ 63 mls/hr TPN CONT IV Last administered on 02/28/19at 22:10; Start 02/28/19 at 22:00; Stop 03/01/19 at 21:59 Furosemide (Lasix) 10 mg 1X ONCE IVP Last administered on 02/28/19at 15:15; Start 02/28/19 at 15:15; Stop 02/28/19 at 15:16; Status DC Furosemide (Lasix) 20 mg PRN DAILY PRN IVP lower extremity edema; Start at 15:15; Stop 02/28/19 at 15:15; Status DC Furosemide (Lasix) 10 mg PRN DAILY PRN IVP lower extremity edema; Start at 15:15 Sodium Chloride 90 meq/Potassium Chloride 60 meq/ Potassium Phosphate 16 mmol/ Magnesium Sulfate 15 meq/Calcium Gluconate 10 meq/ Multivitamins 10 ml/Chromium / Copper/Manganese/ Seleni/Zn 1 ml/ Total Parenteral Nutrition/Amino Acids/ Dextrose/ Fat Emulsion Intravenous 1,512 ml @ 63 mls/hr TPN CONT IV ; Start at 22:00; Stop 03/02/19 at 21:59 Active Scripts Active Reported [dilaudid liquid] 1.5 Mg PO PRN Q8HRS PRN [ferous sulfate] Mg PO DAILY [vitamin B12 inject.] MONTHLY Vitamin D3 (Cholecalciferol (Vitamin D3)) 5,000 Unit Tablet 5,000 Unit PO WEEKLY Tablet (Pnv Cmb#95/Ferrous Fumarate/Fa) 1 Each Tablet 1 Tab PO DAILY Benadryl (Diphenhydramine Hcl) 25 Mg Capsule 25 Mg PO PRN Q4-6HRS PRN Zofran Odt (Ondansetron) 4 Mg Tab.rapdis 4 Mg PO BID PRN Biotin 10,000 Mcg Tab.rapdis 10,000 Mcg PO DAILY Simethicone 125 Mg Capsule 125 Mg PO PRN DAILY PRN Pantoprazole Sodium 40 Mg Tablet. 40 Mg PO DAILY Clonazepam 1 Mg Tablet 1 Tab PO PRN BID PRN Vitals/I & O Vital Sign - Last 24 Hours 02/28/19 02/28/19 02/28/19 02/28/19 14:37 15:00 17:19 19:00 Temp 97.9 97.9 97.9 97.9 Pulse 62 95 Resp 16 18 20 18 B/P (MAP) 137/98 (111) 150/99 (116) Pulse Ox 100 93 O2 Delivery Room Air Room Air Room Air Room Air 02/28/19 02/28/19 02/28/19 02/28/19 19:40 20:24 23:00 23:26 Temp 97.6 97.6 Pulse 76 Resp 20 18 20 B/P (MAP) 120/79 (93) Pulse Ox 90 O2 Delivery Room Air Room Air Room Air Room Air 03/01/19 03/01/19 03/01/19 03/01/19 02:32 03:00 05:38 06:08 Temp 97.6 97.6 Pulse 87 Resp 20 18 20 20 B/P (MAP) 141/99 (113) Pulse Ox 96 O2 Delivery Room Air Room Air Room Air 03/01/19 03/01/19 03/01/19 03/01/19 07:00 08:00 08:43 09:15 Temp 97.7 97.7 Pulse 93 Resp 16 B/P (MAP) 133/93 (106) Pulse Ox 96 O2 Delivery Room Air Room Air Room Air Room Air 03/01/19 03/01/19 11:00 11:51 Temp 98.4 98.4 Pulse 101 Resp 16 B/P (MAP) 126/85 (99) Pulse Ox 92 O2 Delivery Room Air Room Air Intake and Output 02/28/19 02/28/19 03/01/19 15:00 23:00 07:00 Intake Total 1953 ml Output Total 730 ml 850 ml 1175 ml Balance -730 ml -850 ml 778 ml ALEJANDRO PRINCE III DO Mar 01, 2019 12:29
[2019-03-01 13:58] LABS: PROTHROMBIN TIME PATIENT 13.3 SEC (11.7-14.0)
[2019-03-01 15:00] VITALS: BP 127/73
[2019-03-01] MEDS: TPN PER PHARMACY MC PRN (15:07)
--- NOTE | 2019-03-01 15:07 | NUR ---
Pharmacy TPN Dosing Note S: MATTHEW HOLGUIN is a 39 year old F Currently receiving Central Continuous TPN started 02/24/19 B:Pertinent PMH: Partial SBO. No oral intake for long period of time. Height: 5 feet, 7 inches Weight: 72.6 kg Current diet: NPO LABS: Sodium: 141 Potassium: 3.5 Chloride: 102 Calcium: 8.6 Corrected Calcium: 8.52 Magnesium: 2.2 CO2: 36 SCr: 0.8 Glucose: 132 Albumin: 4.1 AST: 24 (02/21) ALT: 32 (02/21) TPN FORMULA: TPN TYPE: Central Continuous AMINO ACIDS: 70 gm DEXTROSE: 250 gm LIPIDS: 30 gm SODIUM CHLORIDE: 90 mEq POTASSIUM CHLORIDE: 60 mEq POTASSIUM PHOSPHATE: 16 mmol MAGNESIUM: 15 mEq CALCIUM: 10 mEq MULTIPLE VITAMIN: 10 ml TRACE ELEMENTS: 1 ml TPN PLAN: -Electrolytes appear WNL and stable. No changes in TPN. -Lower extremity swelling present, but notes also mentioning dehydration. Will continue same rate for TPN for now. -BMP tomorrow per primary. R: Continue TPN @ current rate and above formula. Will monitor electrolytes, glucose, and tolerance to TPN. KATERINA RESENDIZ, [facility], 03/01/19 1716
--- NOTE | 2019-03-01 18:00 | NUR ---
Orders received this morning from Dr Rhodes to clamp NG. As soon as Dr Rhodes left room, Pt stated "I am going to get sick real soon, I just know it's going to be a real bad day. Every time my NG gets clamped, I have to connect myself back to suction." This nurse mentioned to Pt that if Pt started to feel bad to call RN and suction could be resumed. Throughout the day, Pt has been connecting her NG to suction intermittently. Total output recorded for this shift is 1100 of white-yellowish fluid with gritty brown residue noted at bottom of canister.
[2019-03-01 19:00] VITALS: BP 139/95
--- NOTE | 2019-03-01 20:50 | NUR ---
While putting on new securing device on pt.'s nose this evening, this nurse saw a can of lemon-table mountain soda in trash can. This nurse asked pt. why there was a can in the trash can and pt. became defensive. She stated she had family in her room earlier and they had been drinking soda and to ask day shift nurse about it. This nurse understood and believed pt. Pt. kept getting defensive as to why I asked about it and this nurse stated it was just a question any other nurse would ask if their pt. were supposed to be "NPO." Then this nurse explained what NPO meant and the importance of not eating or drinking anything during the circumstances. Pt. later apologized for overreacting and started crying.
[2019-03-01] MEDS ORDERED: DEXTROSE 70% IV SCH ×10 (22:00)
[2019-03-01] MEDS ORDERED: AMINO ACID IV SCH ×10 (22:00)
[2019-03-01] MEDS ORDERED: [UNRECOGNIZED DRUG - OTHER] IV SCH ×10 (22:00)
[2019-03-01] MEDS ORDERED: TOTAL PARENTERAL NUTRITION IV SCH ×10 (22:00)
--- NOTE | 2019-03-01 22:10 | NUR ---
Pt refused KUB this evening, pt stated her NGT is fine and nothing is wrong with it. Addendum: 03/01/19 at 2314 by YASIR GUERRA RN Pt.'s NG tube had come out a little and she had taken tape off of her nose. This nurse put new securing device on pt.'s nose then ordered a stat KUB to check for placement. Per concepción Mariscal. refused KUB Addendum: 03/01/19 at 2315 by YASIR GUERRA RN ELIZABETH Mariscal*
[2019-03-01 23:00] VITALS: BP 128/92
[2019-03-02] MEDS: HYDROmorphone 2 MG/ML VIAL IV PRN ×8 (00:11→21:14)
[2019-03-02] MEDS: diphenhydrAMINE 50 MG/ML VIAL IVP PRN ×4 (00:11→21:15)
[2019-03-02 03:00] VITALS: BP 135/84
[2019-03-02] MEDS: ONDANSETRON PF 4 MG/2 ML VIAL. IV PRN ×4 (03:23→21:14)
[2019-03-02] MEDS: PANTOPRAZOLE IV PUSH 40 MG VIAL. IVP SCH (06:07)
[2019-03-02 06:48] LABS: BASO % 0 % (0-3); EOS # 0.1 x10^3/uL (0.0-0.7); EOS % 1 % (0-3); HEMOGLOBIN 12.8 g/dL (12.0-15.5); LYMPH # 2.7 x10^3/uL (1.0-4.8); LYMPH % 25 % (24-48); MEAN CORPUSCULAR HEMOGLOBIN 31 pg (25-35); MEAN CORPUSCULAR HGB CONC 33 g/dL (31-37); MEAN CORPUSCULAR VOLUME 95 fL (79-100); MONO % 10 % (0-9); NEUT # 6.8 x10^3uL (1.8-7.7); NEUT % 64 % (31-73); PLATELET COUNT 254 x10^3/uL (140-400); RED BLOOD COUNT 4.12 x10^6/uL (3.50-5.40); RED CELL DISTRIBUTION WIDTH 13.1 % (11.5-14.5); WHITE BLOOD COUNT 10.7 x10^3/uL (4.0-11.0)
[2019-03-02 06:57] LABS: CALCIUM 8.8 mg/dL (8.5-10.1); CREATININE 0.8 mg/dL (0.6-1.0); GFR 79.9; POTASSIUM 3.8 mmol/L (3.5-5.1)
[2019-03-02 07:00] VITALS: BP 140/79
[2019-03-02] MEDS: methylPREDNISolone SOD SUCC PF 40 MG/ML VIAL. IV SCH (08:49)
[2019-03-02 11:00] VITALS: BP 139/89
[2019-03-02] MEDS: TPN PER PHARMACY MC PRN (11:23)
--- NOTE | 2019-03-02 11:26 | NUR ---
Pharmacy TPN Dosing Note S: MATTHEW HOLGUIN is a 39 year old F Currently receiving Central Continuous TPN started 02/24/19 B:Pertinent PMH: Partial SBO. No oral intake for long period of time. Height: 5 feet, 7 inches Weight: 72.990455 kg Current diet: NPO LABS: Sodium: 137 Potassium: 3.8 Chloride: 100 Calcium: 8.8 Corrected Calcium: 8.72 Magnesium: 2.2 CO2: 32 SCr: 0.8 Glucose: 85 Albumin: 4.1 AST: 24 (02/21) ALT: 32 (02/21) TPN FORMULA: TPN TYPE: Central Continuous AMINO ACIDS: 70 gm DEXTROSE: 250 gm LIPIDS: 30 gm SODIUM CHLORIDE: 110 mEq SODIUM ACETATE: - mEq SODIUM PHOSPHATE: - mmol POTASSIUM CHLORIDE: 60 mEq POTASSIUM ACETATE: - mEq POTASSIUM PHOSPHATE: 16 mmol MAGNESIUM: 15 mEq CALCIUM: 10 mEq INSULIN: units MULTIPLE VITAMIN: 10 ml TRACE ELEMENTS: 1ml ml(s) TPN PLAN: Na, Cl trending down, increase in tpn. R: Continue TPN as ordered Will monitor electrolytes, glucose, and tolerance to TPN. JILL OROZCO, [facility], 03/02/19 1126
--- NOTE | 2019-03-02 11:55 | PDOC ---
PROGRESS NOTES Subjective Subjective some frustration due to continued nausea, put the NG back on suction at times with 700 cc out; minimal out ileostomy Objective Objective Vital Signs Date Time Temp Pulse Resp B/P (MAP) Pulse Ox O2 Delivery O2 Flow Rate FiO2 03/02/19 11:00 98.0 94 18 139/89 (106) 96 Room Air 98.0 Intake and Output 03/02/19 07:00 Output Total 1950 ml Balance -1950 ml Output Stool Total 50 ml Gastric Drainage Total 1900 ml # Voids 4 Physical Exam Abdomen: Soft (mildly distended, no ileostomy output) Heart: Regular rate Extremities: No clubbing, No cyanosis General: Alert, Oriented X3 HEENT: Other (NG intact) Lungs: Clear to auscultation Neuro: Normal speech Psych/Mental Status: Mental status NL Assessment Assessment Problems Medical Problems: (1) Partial small bowel obstruction Status: Acute Plan Plan of Care Continue supportive care, NG suction as needed Comment Review of Relevant I have reviewed the following items kathy (where applicable) has been applied. Labs Laboratory Tests Test 03/01/19 05:30 03/01/19 13:15 03/02/19 06:25 Sodium Level 141 mmol/L (136-145) 137 mmol/L (136-145) Potassium Level 3.5 mmol/L (3.5-5.1) 3.8 mmol/L (3.5-5.1) Chloride Level 102 mmol/L (98-107) 100 mmol/L (98-107) Carbon Dioxide Level 36 mmol/L (21-32) 32 mmol/L (21-32) Anion Gap 3 (6-14) 5 (6-14) Blood Urea Nitrogen 16 mg/dL (7-20) 13 mg/dL (7-20) Creatinine 0.8 mg/dL (0.6-1.0) 0.8 mg/dL (0.6-1.0) Estimated GFR (Cockcroft-Gault) 79.9 79.9 Glucose Level 132 mg/dL (70-99) 85 mg/dL (70-99) Calcium Level 8.6 mg/dL (8.5-10.1) 8.8 mg/dL (8.5-10.1) Phosphorus Level 3.6 mg/dL (2.6-4.7) Magnesium Level 2.2 mg/dL (1.8-2.4) Prothrombin Time 13.3 SEC (11.7-14.0) Prothromb Time International Ratio 1.0 (0.8-1.1) White Blood Count 10.7 x10^3/uL (4.0-11.0) Red Blood Count 4.12 x10^6/uL (3.50-5.40) Hemoglobin 12.8 g/dL (12.0-15.5) Hematocrit 39.0 % (36.0-47.0) Mean Corpuscular Volume 95 fL (79-100) Mean Corpuscular Hemoglobin 31 pg (25-35) Mean Corpuscular Hemoglobin Concent 33 g/dL (31-37) Red Cell Distribution Width 13.1 % (11.5-14.5) Platelet Count 254 x10^3/uL (140-400) Neutrophils (%) (Auto) 64 % (31-73) Lymphocytes (%) (Auto) 25 % (24-48) Monocytes (%) (Auto) 10 % (0-9) Eosinophils (%) (Auto) 1 % (0-3) Basophils (%) (Auto) 0 % (0-3) Neutrophils # (Auto) 6.8 x10^3uL (1.8-7.7) Lymphocytes # (Auto) 2.7 x10^3/uL (1.0-4.8) Monocytes # (Auto) 1.0 x10^3/uL (0.0-1.1) Eosinophils # (Auto) 0.1 x10^3/uL (0.0-0.7) Basophils # (Auto) 0.0 x10^3/uL (0.0-0.2) Laboratory Tests Test 03/01/19 13:15 03/02/19 06:25 Prothrombin Time 13.3 SEC (11.7-14.0) Prothromb Time International Ratio 1.0 (0.8-1.1) White Blood Count 10.7 x10^3/uL (4.0-11.0) Red Blood Count 4.12 x10^6/uL (3.50-5.40) Hemoglobin 12.8 g/dL (12.0-15.5) Hematocrit 39.0 % (36.0-47.0) Mean Corpuscular Volume 95 fL (79-100) Mean Corpuscular Hemoglobin 31 pg (25-35) Mean Corpuscular Hemoglobin Concent 33 g/dL (31-37) Red Cell Distribution Width 13.1 % (11.5-14.5) Platelet Count 254 x10^3/uL (140-400) Neutrophils (%) (Auto) 64 % (31-73) Lymphocytes (%) (Auto) 25 % (24-48) Monocytes (%) (Auto) 10 % (0-9) Eosinophils (%) (Auto) 1 % (0-3) Basophils (%) (Auto) 0 % (0-3) Neutrophils # (Auto) 6.8 x10^3uL (1.8-7.7) Lymphocytes # (Auto) 2.7 x10^3/uL (1.0-4.8) Monocytes # (Auto) 1.0 x10^3/uL (0.0-1.1) Eosinophils # (Auto) 0.1 x10^3/uL (0.0-0.7) Basophils # (Auto) 0.0 x10^3/uL (0.0-0.2) Sodium Level 137 mmol/L (136-145) Potassium Level 3.8 mmol/L (3.5-5.1) Chloride Level 100 mmol/L (98-107) Carbon Dioxide Level 32 mmol/L (21-32) Anion Gap 5 (6-14) Blood Urea Nitrogen 13 mg/dL (7-20) Creatinine 0.8 mg/dL (0.6-1.0) Estimated GFR (Cockcroft-Gault) 79.9 Glucose Level 85 mg/dL (70-99) Calcium Level 8.8 mg/dL (8.5-10.1) Medications Current Medications Hydromorphone HCl (Dilaudid) 0.5 mg 1X ONCE IV Last administered on 02/21/19at 22:47; Start 02/21/19 at 22:30; Stop 02/21/19 at 22:31; Status DC Ondansetron HCl (Zofran) 4 mg 1X ONCE IV Last administered on 02/21/19at 22:46 ; Start 02/21/19 at 22:30; Stop 02/21/19 at 22:31; Status DC Sodium Chloride (NORMAL SALINE FLUSH for STERILE FIELD) 10 ml STK-Dresser [place] ONCE .ROUTE ; Start 02/21/19 at 22:22; Stop 02/21/19 at 22:23; Status DC Hydromorphone HCl (Dilaudid) 0.5 mg 1X ONCE IV Last administered on 02/22/19at 00:12; Start 02/22/19 at 00:00; Stop 02/22/19 at 00:01; Status DC Ondansetron HCl (Zofran) 4 mg 1X ONCE IV Last administered on 02/22/19at 00:12 ; Start 02/22/19 at 00:00; Stop 02/22/19 at 00:01; Status DC Ondansetron HCl (Zofran) 4 mg PRN Q8HRS PRN IV NAUSEA/VOMITING 1ST CHOICE Last administered on 02/22/19at 04:20; Start 02/22/19 at 00:00; Stop 02/22/19 at 09:33 ; Status DC Morphine Sulfate (Morphine Sulfate) 4 mg PRN Q2HR PRN IV SEVERE PAIN; Start 10/31 at 00:00; Stop 02/22/19 at 04:50; Status DC Benzocaine (Hurricaine One) 1 spray 1X ONCE MM Last administered on 02/22/19at 00:12; Start 02/22/19 at 00:30; Stop 02/22/19 at 00:31; Status DC Hydromorphone HCl (Dilaudid) 1.5 mg PRN Q6HRS PRN IV SEVERE PAIN Last administered on 02/22/19at 08:11; Start 02/22/19 at 01:30; Stop 02/22/19 at 12:21 ; Status DC Sodium Chloride 1,000 ml @ 125 mls/hr Q8H IV Last administered on 02/22/19at 06 :03; Start 02/22/19 at 06:00; Stop 02/22/19 at 09:33; Status DC Hydromorphone HCl (Dilaudid) 1 mg 1X ONCE IV Last administered on 02/22/19at 06 :02; Start 02/22/19 at 06:00; Stop 02/22/19 at 06:01; Status DC Ondansetron HCl (Zofran) 4 mg PRN Q6HRS PRN IV NAUSEA/VOMITING 1ST CHOICE Last administered on 03/02/19 08:51; Start 02/22/19 at 09:45 Diphenhydramine HCl (Benadryl) 25 mg PRN QHS PRN IVP sleep Last administered on 02/22/19 12:45; Start 02/22/19 at 09:45; Stop 02/22/19 at 18:41; Status DC Potassium Chloride/Dextrose/ Sod Cl 1,000 ml @ 100 mls/hr 1X ONCE IV Last administered on 02/22/19 10:51; Start 02/22/19 at 10:30; Stop 02/22/19 at 20:29 ; Status DC Pantoprazole Sodium (PROTONIX VIAL for IV PUSH) 40 mg DAILYAC IVP Last administered on 03/02/19 06:07; Start 02/22/19 at 11:30 Methylprednisolone Sodium Succinate (SOLU-Medrol 40MG VIAL) 20 mg Q12HR IV Last administered on 02/26/19 10:10; Start 02/22/19 at 12:00; Stop 02/26/19 at 12:28; Status DC Hydromorphone HCl (Dilaudid) 1.5 mg PRN Q4HRS PRN IV SEVERE PAIN Last administered on 02/23/19 21:12; Start 02/22/19 at 12:30; Stop 02/23/19 at 22:58 ; Status DC Diphenhydramine HCl (Benadryl) 25 mg PRN Q6HRS PRN IVP ITCHING Last administered on 03/02/19 08:49; Start 02/22/19 at 12:45 Sodium Chloride 1,000 ml @ 100 mls/hr Q10H IV Last administered on 02/24/19 14:22; Start 02/22/19 at 22:00; Stop 02/25/19 at 10:25; Status DC Levofloxacin/ Dextrose 100 ml @ 100 mls/hr Q24H IV Last administered on 21:15; Start 02/23/19 at 21:00 Hydromorphone HCl (Dilaudid) 2 mg PRN Q3HRS PRN IV SEVERE PAIN Last administered on 03/02/19 08:50; Start 02/23/19 at 22:55 Info (Tpn Per Pharmacy) 1 each PRN DAILY PRN MC SEE COMMENTS Last administered on 03/02/19at 11:23; Start 02/24/19 at 08:15 Cyanocobalamin (Vitamin B-12) 1,000 mcg 1X STAT IM Last administered on at 12:06; Start 02/24/19 at 10:05; Stop 02/24/19 at 10:08; Status DC Sodium Chloride 90 meq/Potassium Chloride 50 meq/ Potassium Phosphate 16 mmol/ Magnesium Sulfate 10 meq/Calcium Gluconate 10 meq/ Multivitamins 10 ml/Chromium / Copper/Manganese/ Seleni/Zn 1 ml/ Total Parenteral Nutrition/Amino Acids/ Dextrose/ Fat Emulsion Intravenous 1,512 ml @ 63 mls/hr TPN CONT IV Last administered on 02/24/19at 22:25; Start 02/24/19 at 22:00; Stop 02/26/19 at 00:37 ; Status DC Diphenhydramine HCl (Benadryl) 50 mg 1X ONCE IVP Last administered on at 02:16; Start 02/25/19 at 02:00; Stop 02/25/19 at 02:01; Status DC Sodium Chloride 90 meq/Potassium Chloride 50 meq/ Potassium Phosphate 16 mmol/ Magnesium Sulfate 15 meq/Calcium Gluconate 10 meq/ Multivitamins 10 ml/Chromium / Copper/Manganese/ Seleni/Zn 1 ml/ Total Parenteral Nutrition/Amino Acids/ Dextrose/ Fat Emulsion Intravenous 1,512 ml @ 63 mls/hr TPN CONT IV ; Start at 22:00; Stop 02/26/19 at 21:59; Status DC Iohexol (Omnipaque 300 Mg/ml) 400 ml 1X ONCE PO ; Start 02/26/19 at 08:15; Stop 02/26/19 at 08:16; Status UNV Methylprednisolone Sodium Succinate (SOLU-Medrol 40MG VIAL) 20 mg DAILY IV Last administered on 03/02/19at 08:49; Start 02/27/19 at 09:00 Sodium Chloride 90 meq/Potassium Chloride 50 meq/ Potassium Phosphate 16 mmol/ Magnesium Sulfate 15 meq/Calcium Gluconate 10 meq/ Multivitamins 10 ml/Chromium / Copper/Manganese/ Seleni/Zn 1 ml/ Total Parenteral Nutrition/Amino Acids/ Dextrose/ Fat Emulsion Intravenous 1,512 ml @ 63 mls/hr TPN CONT IV Last administered on 02/26/19at 22:38; Start 02/26/19 at 22:00; Stop 02/27/19 at 21:59 ; Status DC Furosemide (Lasix) 10 mg DAILY IVP Last administered on 02/27/19at 08:36; Start 02/26/19 at 16:00; Stop 02/27/19 at 10:26; Status DC Iohexol (Omnipaque 300 Mg/ml) 400 ml 1X ONCE PO Last administered on at 10:00; Start 02/27/19 at 08:45; Stop 02/27/19 at 09:01; Status DC Sodium Chloride 90 meq/Potassium Chloride 50 meq/ Potassium Phosphate 16 mmol/ Magnesium Sulfate 15 meq/Calcium Gluconate 10 meq/ Multivitamins 10 ml/Chromium / Copper/Manganese/ Seleni/Zn 1 ml/ Total Parenteral Nutrition/Amino Acids/ Dextrose/ Fat Emulsion Intravenous 1,512 ml @ 63 mls/hr TPN CONT IV Last administered on 02/27/19at 22:59; Start 02/27/19 at 22:00; Stop 02/28/19 at 21:59 ; Status DC Iohexol (Omnipaque 300 Mg/ml) 400 ml 1X ONCE PO Last administered on at 09:45; Start 02/28/19 at 09:45; Stop 02/28/19 at 09:46; Status DC Potassium Chloride/Water 100 ml @ 100 mls/hr Q1H IV Last administered on at 14:34; Start 02/28/19 at 11:00; Stop 02/28/19 at 12:59; Status DC Sodium Chloride 90 meq/Potassium Chloride 60 meq/ Potassium Phosphate 16 mmol/ Magnesium Sulfate 15 meq/Calcium Gluconate 10 meq/ Multivitamins 10 ml/Chromium / Copper/Manganese/ Seleni/Zn 1 ml/ Total Parenteral Nutrition/Amino Acids/ Dextrose/ Fat Emulsion Intravenous 1,512 ml @ 63 mls/hr TPN CONT IV Last administered on 02/28/19at 22:10; Start 02/28/19 at 22:00; Stop 03/01/19 at 21:59 ; Status DC Furosemide (Lasix) 10 mg 1X ONCE IVP Last administered on 02/28/19at 15:15; Start 02/28/19 at 15:15; Stop 02/28/19 at 15:16; Status DC Furosemide (Lasix) 20 mg PRN DAILY PRN IVP lower extremity edema; Start at 15:15; Stop 02/28/19 at 15:15; Status DC Furosemide (Lasix) 10 mg PRN DAILY PRN IVP lower extremity edema; Start at 15:15 Sodium Chloride 90 meq/Potassium Chloride 60 meq/ Potassium Phosphate 16 mmol/ Magnesium Sulfate 15 meq/Calcium Gluconate 10 meq/ Multivitamins 10 ml/Chromium / Copper/Manganese/ Seleni/Zn 1 ml/ Total Parenteral Nutrition/Amino Acids/ Dextrose/ Fat Emulsion Intravenous 1,512 ml @ 63 mls/hr TPN CONT IV Last administered on 03/01/19at 22:28; Start 03/01/19 at 22:00; Stop 03/02/19 at 21:59 Sodium Chloride 110 meq/Potassium Chloride 60 meq/ Potassium Phosphate 16 mmol/ Magnesium Sulfate 15 meq/Calcium Gluconate 10 meq/ Multivitamins 10 ml/Chromium / Copper/Manganese/ Seleni/Zn 1 ml/ Total Parenteral Nutrition/Amino Acids/ Dextrose/ Fat Emulsion Intravenous 1,512 ml @ 63 mls/hr TPN CONT IV ; Start at 22:00; Stop 03/03/19 at 21:59 Active Scripts Active Reported [dilaudid liquid] 1.5 Mg PO PRN Q8HRS PRN [ferous sulfate] Mg PO DAILY [vitamin B12 inject.] MONTHLY Vitamin D3 (Cholecalciferol (Vitamin D3)) 5,000 Unit Tablet 5,000 Unit PO WEEKLY Tablet (Pnv Cmb#95/Ferrous Fumarate/Fa) 1 Each Tablet 1 Tab PO DAILY Benadryl (Diphenhydramine Hcl) 25 Mg Capsule 25 Mg PO PRN Q4-6HRS PRN Zofran Odt (Ondansetron) 4 Mg Tab.rapdis 4 Mg PO BID PRN Biotin 10,000 Mcg Tab.rapdis 10,000 Mcg PO DAILY Simethicone 125 Mg Capsule 125 Mg PO PRN DAILY PRN Pantoprazole Sodium 40 Mg Tablet.dr 40 Mg PO DAILY Clonazepam 1 Mg Tablet 1 Tab PO PRN BID PRN Vitals/I & O Vital Sign - Last 24 Hours 03/01/19 03/01/19 03/01/19 03/01/19 14:43 15:00 17:41 19:00 Temp 98.1 97.9 98.1 97.9 Pulse 74 88 Resp 16 18 B/P (MAP) 127/73 (91) 139/95 (110) Pulse Ox 95 97 O2 Delivery Room Air Room Air Room Air Room Air 03/01/19 03/01/19 03/01/19 03/02/19 20:00 21:14 23:00 00:11 Temp 97.5 97.5 Pulse 72 Resp 18 18 B/P (MAP) 128/92 (104) Pulse Ox 95 O2 Delivery Room Air Room Air Room Air Room Air 03/02/19 03/02/19 03/02/19 03/02/19 03:00 03:28 06:08 07:00 Temp 98.1 98.2 98.1 98.2 Pulse 83 89 Resp 18 20 18 B/P (MAP) 135/84 (101) 140/79 (99) Pulse Ox 96 98 O2 Delivery Room Air Room Air Room Air Room Air 03/02/19 03/02/19 03/02/19 03/02/19 08:00 08:50 09:20 11:00 Temp 98.0 98.0 Pulse 94 Resp 20 20 18 B/P (MAP) 139/89 (106) Pulse Ox 96 O2 Delivery Room Air Room Air Room Air Room Air Intake and Output 03/01/19 03/01/19 03/02/19 15:00 23:00 07:00 Output Total 800 ml 1100 ml 50 ml Balance -800 ml -1100 ml -50 ml LEIGHTON ALMAZAN MD Mar 02, 2019 11:55
--- NOTE | 2019-03-02 12:06 | PDOC ---
PROGRESS NOTES Chief Complaint Chief Complaint Abdominal pain History of Present Illness History of Present Illness Patient was resting in bed today. She has mild abdominal discomfort. She still complains of nausea, vomiting, and abdominal pain. She states she is still having limited output from her colostomy site. She has an NG tube in place. At this time she has been suctioning her NG tube due to nausea. She will try to keep it clamped. She states it was last clamped last night. She would like for the NG tube to be removed. Vitals Vitals Vital Signs Date Time Temp Pulse Resp B/P (MAP) Pulse Ox O2 Delivery O2 Flow Rate FiO2 03/02/19 11:00 98.0 94 18 139/89 (106) 96 Room Air 98.0 Physical Exam General: Alert, Oriented X3, Cooperative, mild distress Heart: Regular rate, Normal S1, Normal S2, No murmurs Lungs: Clear (No wheezes, rales, or rhonchi) Abdomen: Soft (mildly distended, no ileostomy output), No masses Extremities: Normal pulses, Other (Mild edema in bilateral lower extremities) Skin: No rashes, No breakdown, No significant lesion Labs LABS Laboratory Tests Test 03/01/19 13:15 03/02/19 06:25 Prothrombin Time 13.3 SEC (11.7-14.0) Prothromb Time International Ratio 1.0 (0.8-1.1) White Blood Count 10.7 x10^3/uL (4.0-11.0) Red Blood Count 4.12 x10^6/uL (3.50-5.40) Hemoglobin 12.8 g/dL (12.0-15.5) Hematocrit 39.0 % (36.0-47.0) Mean Corpuscular Volume 95 fL (79-100) Mean Corpuscular Hemoglobin 31 pg (25-35) Mean Corpuscular Hemoglobin Concent 33 g/dL (31-37) Red Cell Distribution Width 13.1 % (11.5-14.5) Platelet Count 254 x10^3/uL (140-400) Neutrophils (%) (Auto) 64 % (31-73) Lymphocytes (%) (Auto) 25 % (24-48) Monocytes (%) (Auto) 10 % (0-9) Eosinophils (%) (Auto) 1 % (0-3) Basophils (%) (Auto) 0 % (0-3) Neutrophils # (Auto) 6.8 x10^3uL (1.8-7.7) Lymphocytes # (Auto) 2.7 x10^3/uL (1.0-4.8) Monocytes # (Auto) 1.0 x10^3/uL (0.0-1.1) Eosinophils # (Auto) 0.1 x10^3/uL (0.0-0.7) Basophils # (Auto) 0.0 x10^3/uL (0.0-0.2) Sodium Level 137 mmol/L (136-145) Potassium Level 3.8 mmol/L (3.5-5.1) Chloride Level 100 mmol/L (98-107) Carbon Dioxide Level 32 mmol/L (21-32) Anion Gap 5 (6-14) Blood Urea Nitrogen 13 mg/dL (7-20) Creatinine 0.8 mg/dL (0.6-1.0) Estimated GFR (Cockcroft-Gault) 79.9 Glucose Level 85 mg/dL (70-99) Calcium Level 8.8 mg/dL (8.5-10.1) Review of Systems Review of Systems Patient complains of abdominal pain and nausea. She has not had any vomiting. She denies fevers, chills, CP, SOB. Assessment and Plan Assessmemt and Plan Problems Medical Problems: (1) Partial small bowel obstruction Status: Acute Assessment: H/o Crohn's, multiple abd surgeries ( at least 20 x ex lap - mid umbilical scar) Indwelling left sided colostomy N/v, abd pain, decreased ostomy output, weight loss Chronic pain LE swelling Hypokalemia Plan: NG suctioning PRN, hopefully removed soon TPN NPO Dilaudid for pain management Levofloxacin Solu-medrol F/u labs Continue home meds PT/OT Ambulation for DVT prophylaxis Comment Review of Relevant I have reviewed the following items kathy (where applicable) has been applied. Labs Laboratory Tests Test 03/01/19 05:30 03/01/19 13:15 03/02/19 06:25 Sodium Level 141 mmol/L (136-145) 137 mmol/L (136-145) Potassium Level 3.5 mmol/L (3.5-5.1) 3.8 mmol/L (3.5-5.1) Chloride Level 102 mmol/L (98-107) 100 mmol/L (98-107) Carbon Dioxide Level 36 mmol/L (21-32) 32 mmol/L (21-32) Anion Gap 3 (6-14) 5 (6-14) Blood Urea Nitrogen 16 mg/dL (7-20) 13 mg/dL (7-20) Creatinine 0.8 mg/dL (0.6-1.0) 0.8 mg/dL (0.6-1.0) Estimated GFR (Cockcroft-Gault) 79.9 79.9 Glucose Level 132 mg/dL (70-99) 85 mg/dL (70-99) Calcium Level 8.6 mg/dL (8.5-10.1) 8.8 mg/dL (8.5-10.1) Phosphorus Level 3.6 mg/dL (2.6-4.7) Magnesium Level 2.2 mg/dL (1.8-2.4) Prothrombin Time 13.3 SEC (11.7-14.0) Prothromb Time International Ratio 1.0 (0.8-1.1) White Blood Count 10.7 x10^3/uL (4.0-11.0) Red Blood Count 4.12 x10^6/uL (3.50-5.40) Hemoglobin 12.8 g/dL (12.0-15.5) Hematocrit 39.0 % (36.0-47.0) Mean Corpuscular Volume 95 fL (79-100) Mean Corpuscular Hemoglobin 31 pg (25-35) Mean Corpuscular Hemoglobin Concent 33 g/dL (31-37) Red Cell Distribution Width 13.1 % (11.5-14.5) Platelet Count 254 x10^3/uL (140-400) Neutrophils (%) (Auto) 64 % (31-73) Lymphocytes (%) (Auto) 25 % (24-48) Monocytes (%) (Auto) 10 % (0-9) Eosinophils (%) (Auto) 1 % (0-3) Basophils (%) (Auto) 0 % (0-3) Neutrophils # (Auto) 6.8 x10^3uL (1.8-7.7) Lymphocytes # (Auto) 2.7 x10^3/uL (1.0-4.8) Monocytes # (Auto) 1.0 x10^3/uL (0.0-1.1) Eosinophils # (Auto) 0.1 x10^3/uL (0.0-0.7) Basophils # (Auto) 0.0 x10^3/uL (0.0-0.2) Laboratory Tests Test 03/01/19 13:15 03/02/19 06:25 Prothrombin Time 13.3 SEC (11.7-14.0) Prothromb Time International Ratio 1.0 (0.8-1.1) White Blood Count 10.7 x10^3/uL (4.0-11.0) Red Blood Count 4.12 x10^6/uL (3.50-5.40) Hemoglobin 12.8 g/dL (12.0-15.5) Hematocrit 39.0 % (36.0-47.0) Mean Corpuscular Volume 95 fL (79-100) Mean Corpuscular Hemoglobin 31 pg (25-35) Mean Corpuscular Hemoglobin Concent 33 g/dL (31-37) Red Cell Distribution Width 13.1 % (11.5-14.5) Platelet Count 254 x10^3/uL (140-400) Neutrophils (%) (Auto) 64 % (31-73) Lymphocytes (%) (Auto) 25 % (24-48) Monocytes (%) (Auto) 10 % (0-9) Eosinophils (%) (Auto) 1 % (0-3) Basophils (%) (Auto) 0 % (0-3) Neutrophils # (Auto) 6.8 x10^3uL (1.8-7.7) Lymphocytes # (Auto) 2.7 x10^3/uL (1.0-4.8) Monocytes # (Auto) 1.0 x10^3/uL (0.0-1.1) Eosinophils # (Auto) 0.1 x10^3/uL (0.0-0.7) Basophils # (Auto) 0.0 x10^3/uL (0.0-0.2) Sodium Level 137 mmol/L (136-145) Potassium Level 3.8 mmol/L (3.5-5.1) Chloride Level 100 mmol/L (98-107) Carbon Dioxide Level 32 mmol/L (21-32) Anion Gap 5 (6-14) Blood Urea Nitrogen 13 mg/dL (7-20) Creatinine 0.8 mg/dL (0.6-1.0) Estimated GFR (Cockcroft-Gault) 79.9 Glucose Level 85 mg/dL (70-99) Calcium Level 8.8 mg/dL (8.5-10.1) Medications Current Medications Hydromorphone HCl (Dilaudid) 0.5 mg 1X ONCE IV Last administered on 02/21/19at 22:47; Start 02/21/19 at 22:30; Stop 02/21/19 at 22:31; Status DC Ondansetron HCl (Zofran) 4 mg 1X ONCE IV Last administered on 02/21/19at 22:46 ; Start 02/21/19 at 22:30; Stop 02/21/19 at 22:31; Status DC Sodium Chloride (NORMAL SALINE FLUSH for STERILE FIELD) 10 ml Measurabl-Veronica ONCE .ROUTE ; Start 02/21/19 at 22:22; Stop 02/21/19 at 22:23; Status DC Hydromorphone HCl (Dilaudid) 0.5 mg 1X ONCE IV Last administered on 02/22/19at 00:12; Start 02/22/19 at 00:00; Stop 02/22/19 at 00:01; Status DC Ondansetron HCl (Zofran) 4 mg 1X ONCE IV Last administered on 02/22/19at 00:12 ; Start 02/22/19 at 00:00; Stop 02/22/19 at 00:01; Status DC Ondansetron HCl (Zofran) 4 mg PRN Q8HRS PRN IV NAUSEA/VOMITING 1ST CHOICE Last administered on 02/22/19at 04:20; Start 02/22/19 at 00:00; Stop 02/22/19 at 09:33 ; Status DC Morphine Sulfate (Morphine Sulfate) 4 mg PRN Q2HR PRN IV SEVERE PAIN; Start 10/31 at 00:00; Stop 02/22/19 at 04:50; Status DC Benzocaine (Hurricaine One) 1 spray 1X ONCE MM Last administered on 02/22/19at 00:12; Start 02/22/19 at 00:30; Stop 02/22/19 at 00:31; Status DC Hydromorphone HCl (Dilaudid) 1.5 mg PRN Q6HRS PRN IV SEVERE PAIN Last administered on 02/22/19 08:11; Start 02/22/19 at 01:30; Stop 02/22/19 at 12:21 ; Status DC Sodium Chloride 1,000 ml @ 125 mls/hr Q8H IV Last administered on 02/22/19 06 :03; Start 02/22/19 at 06:00; Stop 02/22/19 at 09:33; Status DC Hydromorphone HCl (Dilaudid) 1 mg 1X ONCE IV Last administered on 02/22/19at 06 :02; Start 02/22/19 at 06:00; Stop 02/22/19 at 06:01; Status DC Ondansetron HCl (Zofran) 4 mg PRN Q6HRS PRN IV NAUSEA/VOMITING 1ST CHOICE Last administered on 03/02/19 08:51; Start 02/22/19 at 09:45 Diphenhydramine HCl (Benadryl) 25 mg PRN QHS PRN IVP sleep Last administered on 02/22/19 12:45; Start 02/22/19 at 09:45; Stop 02/22/19 at 18:41; Status DC Potassium Chloride/Dextrose/ Sod Cl 1,000 ml @ 100 mls/hr 1X ONCE IV Last administered on 02/22/19 10:51; Start 02/22/19 at 10:30; Stop 02/22/19 at 20:29 ; Status DC Pantoprazole Sodium (PROTONIX VIAL for IV PUSH) 40 mg DAILYAC IVP Last administered on 03/02/19 06:07; Start 02/22/19 at 11:30 Methylprednisolone Sodium Succinate (SOLU-Medrol 40MG VIAL) 20 mg Q12HR IV Last administered on 02/26/19at 10:10; Start 02/22/19 at 12:00; Stop 02/26/19 at 12:28; Status DC Hydromorphone HCl (Dilaudid) 1.5 mg PRN Q4HRS PRN IV SEVERE PAIN Last administered on 02/23/19at 21:12; Start 02/22/19 at 12:30; Stop 02/23/19 at 22:58 ; Status DC Diphenhydramine HCl (Benadryl) 25 mg PRN Q6HRS PRN IVP ITCHING Last administered on 03/02/19at 08:49; Start 02/22/19 at 12:45 Sodium Chloride 1,000 ml @ 100 mls/hr Q10H IV Last administered on 02/24/19at 14:22; Start 02/22/19 at 22:00; Stop 02/25/19 at 10:25; Status DC Levofloxacin/ Dextrose 100 ml @ 100 mls/hr Q24H IV Last administered on at 21:15; Start 02/23/19 at 21:00 Hydromorphone HCl (Dilaudid) 2 mg PRN Q3HRS PRN IV SEVERE PAIN Last administered on 03/02/19at 08:50; Start 02/23/19 at 22:55 Info (Tpn Per Pharmacy) 1 each PRN DAILY PRN MC SEE COMMENTS Last administered on 03/02/19at 11:23; Start 02/24/19 at 08:15 Cyanocobalamin (Vitamin B-12) 1,000 mcg 1X STAT IM Last administered on at 12:06; Start 02/24/19 at 10:05; Stop 02/24/19 at 10:08; Status DC Sodium Chloride 90 meq/Potassium Chloride 50 meq/ Potassium Phosphate 16 mmol/ Magnesium Sulfate 10 meq/Calcium Gluconate 10 meq/ Multivitamins 10 ml/Chromium / Copper/Manganese/ Seleni/Zn 1 ml/ Total Parenteral Nutrition/Amino Acids/ Dextrose/ Fat Emulsion Intravenous 1,512 ml @ 63 mls/hr TPN CONT IV Last administered on 02/24/19at 22:25; Start 02/24/19 at 22:00; Stop 02/26/19 at 00:37 ; Status DC Diphenhydramine HCl (Benadryl) 50 mg 1X ONCE IVP Last administered on at 02:16; Start 02/25/19 at 02:00; Stop 02/25/19 at 02:01; Status DC Sodium Chloride 90 meq/Potassium Chloride 50 meq/ Potassium Phosphate 16 mmol/ Magnesium Sulfate 15 meq/Calcium Gluconate 10 meq/ Multivitamins 10 ml/Chromium / Copper/Manganese/ Seleni/Zn 1 ml/ Total Parenteral Nutrition/Amino Acids/ Dextrose/ Fat Emulsion Intravenous 1,512 ml @ 63 mls/hr TPN CONT IV ; Start at 22:00; Stop 02/26/19 at 21:59; Status DC Iohexol (Omnipaque 300 Mg/ml) 400 ml 1X ONCE PO ; Start 02/26/19 at 08:15; Stop 02/26/19 at 08:16; Status UNV Methylprednisolone Sodium Succinate (SOLU-Medrol 40MG VIAL) 20 mg DAILY IV Last administered on 03/02/19at 08:49; Start 02/27/19 at 09:00 Sodium Chloride 90 meq/Potassium Chloride 50 meq/ Potassium Phosphate 16 mmol/ Magnesium Sulfate 15 meq/Calcium Gluconate 10 meq/ Multivitamins 10 ml/Chromium / Copper/Manganese/ Seleni/Zn 1 ml/ Total Parenteral Nutrition/Amino Acids/ Dextrose/ Fat Emulsion Intravenous 1,512 ml @ 63 mls/hr TPN CONT IV Last administered on 02/26/19at 22:38; Start 02/26/19 at 22:00; Stop 02/27/19 at 21:59 ; Status DC Furosemide (Lasix) 10 mg DAILY IVP Last administered on 02/27/19at 08:36; Start 02/26/19 at 16:00; Stop 02/27/19 at 10:26; Status DC Iohexol (Omnipaque 300 Mg/ml) 400 ml 1X ONCE PO Last administered on at 10:00; Start 02/27/19 at 08:45; Stop 02/27/19 at 09:01; Status DC Sodium Chloride 90 meq/Potassium Chloride 50 meq/ Potassium Phosphate 16 mmol/ Magnesium Sulfate 15 meq/Calcium Gluconate 10 meq/ Multivitamins 10 ml/Chromium / Copper/Manganese/ Seleni/Zn 1 ml/ Total Parenteral Nutrition/Amino Acids/ Dextrose/ Fat Emulsion Intravenous 1,512 ml @ 63 mls/hr TPN CONT IV Last administered on 02/27/19at 22:59; Start 02/27/19 at 22:00; Stop 02/28/19 at 21:59 ; Status DC Iohexol (Omnipaque 300 Mg/ml) 400 ml 1X ONCE PO Last administered on at 09:45; Start 02/28/19 at 09:45; Stop 02/28/19 at 09:46; Status DC Potassium Chloride/Water 100 ml @ 100 mls/hr Q1H IV Last administered on at 14:34; Start 02/28/19 at 11:00; Stop 02/28/19 at 12:59; Status DC Sodium Chloride 90 meq/Potassium Chloride 60 meq/ Potassium Phosphate 16 mmol/ Magnesium Sulfate 15 meq/Calcium Gluconate 10 meq/ Multivitamins 10 ml/Chromium / Copper/Manganese/ Seleni/Zn 1 ml/ Total Parenteral Nutrition/Amino Acids/ Dextrose/ Fat Emulsion Intravenous 1,512 ml @ 63 mls/hr TPN CONT IV Last administered on 02/28/19at 22:10; Start 02/28/19 at 22:00; Stop 03/01/19 at 21:59 ; Status DC Furosemide (Lasix) 10 mg 1X ONCE IVP Last administered on 02/28/19at 15:15; Start 02/28/19 at 15:15; Stop 02/28/19 at 15:16; Status DC Furosemide (Lasix) 20 mg PRN DAILY PRN IVP lower extremity edema; Start at 15:15; Stop 02/28/19 at 15:15; Status DC Furosemide (Lasix) 10 mg PRN DAILY PRN IVP lower extremity edema; Start at 15:15 Sodium Chloride 90 meq/Potassium Chloride 60 meq/ Potassium Phosphate 16 mmol/ Magnesium Sulfate 15 meq/Calcium Gluconate 10 meq/ Multivitamins 10 ml/Chromium / Copper/Manganese/ Seleni/Zn 1 ml/ Total Parenteral Nutrition/Amino Acids/ Dextrose/ Fat Emulsion Intravenous 1,512 ml @ 63 mls/hr TPN CONT IV Last administered on 03/01/19at 22:28; Start 03/01/19 at 22:00; Stop 03/02/19 at 21:59 Sodium Chloride 110 meq/Potassium Chloride 60 meq/ Potassium Phosphate 16 mmol/ Magnesium Sulfate 15 meq/Calcium Gluconate 10 meq/ Multivitamins 10 ml/Chromium / Copper/Manganese/ Seleni/Zn 1 ml/ Total Parenteral Nutrition/Amino Acids/ Dextrose/ Fat Emulsion Intravenous 1,512 ml @ 63 mls/hr TPN CONT IV ; Start at 22:00; Stop 03/03/19 at 21:59 Active Scripts Active Reported [dilaudid liquid] 1.5 Mg PO PRN Q8HRS PRN [ferous sulfate] Mg PO DAILY [vitamin B12 inject.] MONTHLY Vitamin D3 (Cholecalciferol (Vitamin D3)) 5,000 Unit Tablet 5,000 Unit PO WEEKLY Tablet (Pnv Cmb#95/Ferrous Fumarate/Fa) 1 Each Tablet 1 Tab PO DAILY Benadryl (Diphenhydramine Hcl) 25 Mg Capsule 25 Mg PO PRN Q4-6HRS PRN Zofran Odt (Ondansetron) 4 Mg Tab.rapdis 4 Mg PO BID PRN Biotin 10,000 Mcg Tab.rapdis 10,000 Mcg PO DAILY Simethicone 125 Mg Capsule 125 Mg PO PRN DAILY PRN Pantoprazole Sodium 40 Mg Tablet.dr 40 Mg PO DAILY Clonazepam 1 Mg Tablet 1 Tab PO PRN BID PRN Vitals/I & O Vital Sign - Last 24 Hours 03/01/19 03/01/19 03/01/19 03/01/19 14:43 15:00 17:41 19:00 Temp 98.1 97.9 98.1 97.9 Pulse 74 88 Resp 16 18 B/P (MAP) 127/73 (91) 139/95 (110) Pulse Ox 95 97 O2 Delivery Room Air Room Air Room Air Room Air 03/01/19 03/01/19 03/01/19 03/02/19 20:00 21:14 23:00 00:11 Temp 97.5 97.5 Pulse 72 Resp 18 18 B/P (MAP) 128/92 (104) Pulse Ox 95 O2 Delivery Room Air Room Air Room Air Room Air 03/02/19 03/02/19 03/02/19 03/02/19 03:00 03:28 06:08 07:00 Temp 98.1 98.2 98.1 98.2 Pulse 83 89 Resp 18 20 18 B/P (MAP) 135/84 (101) 140/79 (99) Pulse Ox 96 98 O2 Delivery Room Air Room Air Room Air Room Air 03/02/19 03/02/19 03/02/19 03/02/19 08:00 08:50 09:20 11:00 Temp 98.0 98.0 Pulse 94 Resp 20 20 18 B/P (MAP) 139/89 (106) Pulse Ox 96 O2 Delivery Room Air Room Air Room Air Room Air Intake and Output 03/01/19 03/01/19 03/02/19 15:00 23:00 07:00 Output Total 800 ml 1100 ml 50 ml Balance -800 ml -1100 ml -50 ml ALEJANDRO PRINCE III DO Mar 02, 2019 12:06
[2019-03-02 15:00] VITALS: BP 128/86
--- NOTE | 2019-03-02 16:57 | NUR ---
The benadryl, dilaludid and zofran scanned at 1630 were actually given at 1500 (computer scanner not working correctly).
[2019-03-02 19:00] VITALS: BP 126/82
[2019-03-02] MEDS ORDERED: TOTAL PARENTERAL NUTRITION IV SCH ×10 (22:00)
[2019-03-02] MEDS ORDERED: DEXTROSE 70% IV SCH ×10 (22:00)
[2019-03-02] MEDS ORDERED: AMINO ACID IV SCH ×10 (22:00)
[2019-03-02] MEDS ORDERED: [UNRECOGNIZED DRUG - OTHER] IV SCH ×10 (22:00)
[2019-03-02 23:00] VITALS: BP 127/87
[2019-03-03] MEDS: HYDROmorphone 2 MG/ML VIAL IV PRN ×8 (00:16→21:39)
[2019-03-03 03:00] VITALS: BP 135/74
[2019-03-03] MEDS: ONDANSETRON PF 4 MG/2 ML VIAL. IV PRN ×4 (03:20→21:38)
[2019-03-03] MEDS: diphenhydrAMINE 50 MG/ML VIAL IVP PRN ×4 (03:20→21:39)
[2019-03-03 07:08] VITALS: BP 143/87
[2019-03-03] MEDS: PANTOPRAZOLE IV PUSH 40 MG VIAL. IVP SCH (07:11)
[2019-03-03 07:39] LABS: BASO % 0 % (0-3); EOS # 0.1 x10^3/uL (0.0-0.7); EOS % 1 % (0-3); HEMATOCRIT 36.4 % (36.0-47.0); LYMPH # 2.3 x10^3/uL (1.0-4.8); LYMPH % 25 % (24-48); MEAN CORPUSCULAR HEMOGLOBIN 32 pg (25-35); MEAN CORPUSCULAR HGB CONC 33 g/dL (31-37); MEAN CORPUSCULAR VOLUME 95 fL (79-100); MONO # 0.8 x10^3/uL (0.0-1.1); MONO % 9 % (0-9); NEUT % 65 % (31-73); PLATELET COUNT 234 x10^3/uL (140-400); RED BLOOD COUNT 3.83 x10^6/uL (3.50-5.40); RED CELL DISTRIBUTION WIDTH 13.1 % (11.5-14.5); WHITE BLOOD COUNT 9.3 x10^3/uL (4.0-11.0)
[2019-03-03 07:57] LABS: CALCIUM 8.1 mg/dL (8.5-10.1); CREATININE 0.8 mg/dL (0.6-1.0); GFR 79.9; POTASSIUM 3.3 mmol/L (3.5-5.1)
[2019-03-03] MEDS: methylPREDNISolone SOD SUCC PF 40 MG/ML VIAL. IV SCH (09:26)
[2019-03-03] MEDS: FUROSEMIDE 20 MG/2 ML VIAL. IVP PRN (09:39)
--- NOTE | 2019-03-03 09:41 | PDOC ---
PROGRESS NOTES Subjective Subjective remains frustrated, no ileostomy output; wants to try sesame oil again Objective Objective Vital Signs Date Time Temp Pulse Resp B/P (MAP) Pulse Ox O2 Delivery O2 Flow Rate FiO2 03/03/19 07:41 20 Room Air 03/03/19 07:08 97.8 73 143/87 (105) 99 97.8 Intake and Output 03/03/19 07:00 Intake Total 0 ml Output Total 0 ml Balance 0 ml Intake Oral 0 ml Gastric Drainage Total 0 ml # Voids 1 Physical Exam Abdomen: Soft (no ostomy output) Heart: Regular rate Extremities: No clubbing, No cyanosis General: Alert, Oriented X3, Cooperative Lungs: Clear to auscultation Neuro: Normal speech Assessment Assessment Problems Medical Problems: (1) Partial small bowel obstruction Status: Acute Plan Plan of Care will check abdominal films, try sesame oil Comment Review of Relevant I have reviewed the following items kathy (where applicable) has been applied. Labs Laboratory Tests Test 03/01/19 13:15 03/02/19 06:25 03/03/19 07:00 Prothrombin Time 13.3 SEC (11.7-14.0) Prothromb Time International Ratio 1.0 (0.8-1.1) White Blood Count 10.7 x10^3/uL (4.0-11.0) 9.3 x10^3/uL (4.0-11.0) Red Blood Count 4.12 x10^6/uL (3.50-5.40) 3.83 x10^6/uL (3.50-5.40) Hemoglobin 12.8 g/dL (12.0-15.5) 12.0 g/dL (12.0-15.5) Hematocrit 39.0 % (36.0-47.0) 36.4 % (36.0-47.0) Mean Corpuscular Volume 95 fL (79-100) 95 fL (79-100) Mean Corpuscular Hemoglobin 31 pg (25-35) 32 pg (25-35) Mean Corpuscular Hemoglobin Concent 33 g/dL (31-37) 33 g/dL (31-37) Red Cell Distribution Width 13.1 % (11.5-14.5) 13.1 % (11.5-14.5) Platelet Count 254 x10^3/uL (140-400) 234 x10^3/uL (140-400) Neutrophils (%) (Auto) 64 % (31-73) 65 % (31-73) Lymphocytes (%) (Auto) 25 % (24-48) 25 % (24-48) Monocytes (%) (Auto) 10 % (0-9) 9 % (0-9) Eosinophils (%) (Auto) 1 % (0-3) 1 % (0-3) Basophils (%) (Auto) 0 % (0-3) 0 % (0-3) Neutrophils # (Auto) 6.8 x10^3uL (1.8-7.7) 6.0 x10^3uL (1.8-7.7) Lymphocytes # (Auto) 2.7 x10^3/uL (1.0-4.8) 2.3 x10^3/uL (1.0-4.8) Monocytes # (Auto) 1.0 x10^3/uL (0.0-1.1) 0.8 x10^3/uL (0.0-1.1) Eosinophils # (Auto) 0.1 x10^3/uL (0.0-0.7) 0.1 x10^3/uL (0.0-0.7) Basophils # (Auto) 0.0 x10^3/uL (0.0-0.2) 0.0 x10^3/uL (0.0-0.2) Sodium Level 137 mmol/L (136-145) 141 mmol/L (136-145) Potassium Level 3.8 mmol/L (3.5-5.1) 3.3 mmol/L (3.5-5.1) Chloride Level 100 mmol/L (98-107) 102 mmol/L (98-107) Carbon Dioxide Level 32 mmol/L (21-32) 33 mmol/L (21-32) Anion Gap 5 (6-14) 6 (6-14) Blood Urea Nitrogen 13 mg/dL (7-20) 13 mg/dL (7-20) Creatinine 0.8 mg/dL (0.6-1.0) 0.8 mg/dL (0.6-1.0) Estimated GFR (Cockcroft-Gault) 79.9 79.9 Glucose Level 85 mg/dL (70-99) 89 mg/dL (70-99) Calcium Level 8.8 mg/dL (8.5-10.1) 8.1 mg/dL (8.5-10.1) Laboratory Tests Test 03/03/19 07:00 White Blood Count 9.3 x10^3/uL (4.0-11.0) Red Blood Count 3.83 x10^6/uL (3.50-5.40) Hemoglobin 12.0 g/dL (12.0-15.5) Hematocrit 36.4 % (36.0-47.0) Mean Corpuscular Volume 95 fL (79-100) Mean Corpuscular Hemoglobin 32 pg (25-35) Mean Corpuscular Hemoglobin Concent 33 g/dL (31-37) Red Cell Distribution Width 13.1 % (11.5-14.5) Platelet Count 234 x10^3/uL (140-400) Neutrophils (%) (Auto) 65 % (31-73) Lymphocytes (%) (Auto) 25 % (24-48) Monocytes (%) (Auto) 9 % (0-9) Eosinophils (%) (Auto) 1 % (0-3) Basophils (%) (Auto) 0 % (0-3) Neutrophils # (Auto) 6.0 x10^3uL (1.8-7.7) Lymphocytes # (Auto) 2.3 x10^3/uL (1.0-4.8) Monocytes # (Auto) 0.8 x10^3/uL (0.0-1.1) Eosinophils # (Auto) 0.1 x10^3/uL (0.0-0.7) Basophils # (Auto) 0.0 x10^3/uL (0.0-0.2) Sodium Level 141 mmol/L (136-145) Potassium Level 3.3 mmol/L (3.5-5.1) Chloride Level 102 mmol/L (98-107) Carbon Dioxide Level 33 mmol/L (21-32) Anion Gap 6 (6-14) Blood Urea Nitrogen 13 mg/dL (7-20) Creatinine 0.8 mg/dL (0.6-1.0) Estimated GFR (Cockcroft-Gault) 79.9 Glucose Level 89 mg/dL (70-99) Calcium Level 8.1 mg/dL (8.5-10.1) Medications Current Medications Hydromorphone HCl (Dilaudid) 0.5 mg 1X ONCE IV Last administered on 02/21/19at 22:47; Start 02/21/19 at 22:30; Stop 02/21/19 at 22:31; Status DC Ondansetron HCl (Zofran) 4 mg 1X ONCE IV Last administered on 02/21/19at 22:46 ; Start 02/21/19 at 22:30; Stop 02/21/19 at 22:31; Status DC Sodium Chloride (NORMAL SALINE FLUSH for STERILE FIELD) 10 ml Zipmark-Electronifie ONCE .ROUTE ; Start 02/21/19 at 22:22; Stop 02/21/19 at 22:23; Status DC Hydromorphone HCl (Dilaudid) 0.5 mg 1X ONCE IV Last administered on 02/22/19at 00:12; Start 02/22/19 at 00:00; Stop 02/22/19 at 00:01; Status DC Ondansetron HCl (Zofran) 4 mg 1X ONCE IV Last administered on 02/22/19at 00:12 ; Start 02/22/19 at 00:00; Stop 02/22/19 at 00:01; Status DC Ondansetron HCl (Zofran) 4 mg PRN Q8HRS PRN IV NAUSEA/VOMITING 1ST CHOICE Last administered on 02/22/19at 04:20; Start 02/22/19 at 00:00; Stop 02/22/19 at 09:33 ; Status DC Morphine Sulfate (Morphine Sulfate) 4 mg PRN Q2HR PRN IV SEVERE PAIN; Start 10/31 at 00:00; Stop 02/22/19 at 04:50; Status DC Benzocaine (Hurricaine One) 1 spray 1X ONCE MM Last administered on 02/22/19at 00:12; Start 02/22/19 at 00:30; Stop 02/22/19 at 00:31; Status DC Hydromorphone HCl (Dilaudid) 1.5 mg PRN Q6HRS PRN IV SEVERE PAIN Last administered on 02/22/19at 08:11; Start 02/22/19 at 01:30; Stop 02/22/19 at 12:21 ; Status DC Sodium Chloride 1,000 ml @ 125 mls/hr Q8H IV Last administered on 02/22/19at 06 :03; Start 02/22/19 at 06:00; Stop 02/22/19 at 09:33; Status DC Hydromorphone HCl (Dilaudid) 1 mg 1X ONCE IV Last administered on 02/22/19at 06 :02; Start 02/22/19 at 06:00; Stop 02/22/19 at 06:01; Status DC Ondansetron HCl (Zofran) 4 mg PRN Q6HRS PRN IV NAUSEA/VOMITING 1ST CHOICE Last administered on 03/03/19at 03:20; Start 02/22/19 at 09:45 Diphenhydramine HCl (Benadryl) 25 mg PRN QHS PRN IVP sleep Last administered on 02/22/19at 12:45; Start 02/22/19 at 09:45; Stop 02/22/19 at 18:41; Status DC Potassium Chloride/Dextrose/ Sod Cl 1,000 ml @ 100 mls/hr 1X ONCE IV Last administered on 02/22/19at 10:51; Start 02/22/19 at 10:30; Stop 02/22/19 at 20:29 ; Status DC Pantoprazole Sodium (PROTONIX VIAL for IV PUSH) 40 mg DAILYAC IVP Last administered on 03/03/19at 07:11; Start 02/22/19 at 11:30 Methylprednisolone Sodium Succinate (SOLU-Medrol 40MG VIAL) 20 mg Q12HR IV Last administered on 02/26/19at 10:10; Start 02/22/19 at 12:00; Stop 02/26/19 at 12:28; Status DC Hydromorphone HCl (Dilaudid) 1.5 mg PRN Q4HRS PRN IV SEVERE PAIN Last administered on 02/23/19at 21:12; Start 02/22/19 at 12:30; Stop 02/23/19 at 22:58 ; Status DC Diphenhydramine HCl (Benadryl) 25 mg PRN Q6HRS PRN IVP ITCHING Last administered on 03/03/19at 03:20; Start 02/22/19 at 12:45 Sodium Chloride 1,000 ml @ 100 mls/hr Q10H IV Last administered on 02/24/19at 14:22; Start 02/22/19 at 22:00; Stop 02/25/19 at 10:25; Status DC Levofloxacin/ Dextrose 100 ml @ 100 mls/hr Q24H IV Last administered on at 21:15; Start 02/23/19 at 21:00 Hydromorphone HCl (Dilaudid) 2 mg PRN Q3HRS PRN IV SEVERE PAIN Last administered on 03/03/19at 07:11; Start 02/23/19 at 22:55 Info (Tpn Per Pharmacy) 1 each PRN DAILY PRN MC SEE COMMENTS Last administered on 03/02/19at 11:23; Start 02/24/19 at 08:15 Cyanocobalamin (Vitamin B-12) 1,000 mcg 1X STAT IM Last administered on at 12:06; Start 02/24/19 at 10:05; Stop 02/24/19 at 10:08; Status DC Sodium Chloride 90 meq/Potassium Chloride 50 meq/ Potassium Phosphate 16 mmol/ Magnesium Sulfate 10 meq/Calcium Gluconate 10 meq/ Multivitamins 10 ml/Chromium / Copper/Manganese/ Seleni/Zn 1 ml/ Total Parenteral Nutrition/Amino Acids/ Dextrose/ Fat Emulsion Intravenous 1,512 ml @ 63 mls/hr TPN CONT IV Last administered on 02/24/19at 22:25; Start 02/24/19 at 22:00; Stop 02/26/19 at 00:37 ; Status DC Diphenhydramine HCl (Benadryl) 50 mg 1X ONCE IVP Last administered on at 02:16; Start 02/25/19 at 02:00; Stop 02/25/19 at 02:01; Status DC Sodium Chloride 90 meq/Potassium Chloride 50 meq/ Potassium Phosphate 16 mmol/ Magnesium Sulfate 15 meq/Calcium Gluconate 10 meq/ Multivitamins 10 ml/Chromium / Copper/Manganese/ Seleni/Zn 1 ml/ Total Parenteral Nutrition/Amino Acids/ Dextrose/ Fat Emulsion Intravenous 1,512 ml @ 63 mls/hr TPN CONT IV ; Start at 22:00; Stop 02/26/19 at 21:59; Status DC Iohexol (Omnipaque 300 Mg/ml) 400 ml 1X ONCE PO ; Start 02/26/19 at 08:15; Stop 02/26/19 at 08:16; Status UNV Methylprednisolone Sodium Succinate (SOLU-Medrol 40MG VIAL) 20 mg DAILY IV Last administered on 03/02/19at 08:49; Start 02/27/19 at 09:00 Sodium Chloride 90 meq/Potassium Chloride 50 meq/ Potassium Phosphate 16 mmol/ Magnesium Sulfate 15 meq/Calcium Gluconate 10 meq/ Multivitamins 10 ml/Chromium / Copper/Manganese/ Seleni/Zn 1 ml/ Total Parenteral Nutrition/Amino Acids/ Dextrose/ Fat Emulsion Intravenous 1,512 ml @ 63 mls/hr TPN CONT IV Last administered on 02/26/19at 22:38; Start 02/26/19 at 22:00; Stop 02/27/19 at 21:59 ; Status DC Furosemide (Lasix) 10 mg DAILY IVP Last administered on 02/27/19at 08:36; Start 02/26/19 at 16:00; Stop 02/27/19 at 10:26; Status DC Iohexol (Omnipaque 300 Mg/ml) 400 ml 1X ONCE PO Last administered on at 10:00; Start 02/27/19 at 08:45; Stop 02/27/19 at 09:01; Status DC Sodium Chloride 90 meq/Potassium Chloride 50 meq/ Potassium Phosphate 16 mmol/ Magnesium Sulfate 15 meq/Calcium Gluconate 10 meq/ Multivitamins 10 ml/Chromium / Copper/Manganese/ Seleni/Zn 1 ml/ Total Parenteral Nutrition/Amino Acids/ Dextrose/ Fat Emulsion Intravenous 1,512 ml @ 63 mls/hr TPN CONT IV Last administered on 02/27/19at 22:59; Start 02/27/19 at 22:00; Stop 02/28/19 at 21:59 ; Status DC Iohexol (Omnipaque 300 Mg/ml) 400 ml 1X ONCE PO Last administered on at 09:45; Start 02/28/19 at 09:45; Stop 02/28/19 at 09:46; Status DC Potassium Chloride/Water 100 ml @ 100 mls/hr Q1H IV Last administered on at 14:34; Start 02/28/19 at 11:00; Stop 02/28/19 at 12:59; Status DC Sodium Chloride 90 meq/Potassium Chloride 60 meq/ Potassium Phosphate 16 mmol/ Magnesium Sulfate 15 meq/Calcium Gluconate 10 meq/ Multivitamins 10 ml/Chromium / Copper/Manganese/ Seleni/Zn 1 ml/ Total Parenteral Nutrition/Amino Acids/ Dextrose/ Fat Emulsion Intravenous 1,512 ml @ 63 mls/hr TPN CONT IV Last administered on 02/28/19at 22:10; Start 02/28/19 at 22:00; Stop 03/01/19 at 21:59 ; Status DC Furosemide (Lasix) 10 mg 1X ONCE IVP Last administered on 02/28/19at 15:15; Start 02/28/19 at 15:15; Stop 02/28/19 at 15:16; Status DC Furosemide (Lasix) 20 mg PRN DAILY PRN IVP lower extremity edema; Start at 15:15; Stop 02/28/19 at 15:15; Status DC Furosemide (Lasix) 10 mg PRN DAILY PRN IVP lower extremity edema; Start at 15:15 Sodium Chloride 90 meq/Potassium Chloride 60 meq/ Potassium Phosphate 16 mmol/ Magnesium Sulfate 15 meq/Calcium Gluconate 10 meq/ Multivitamins 10 ml/Chromium / Copper/Manganese/ Seleni/Zn 1 ml/ Total Parenteral Nutrition/Amino Acids/ Dextrose/ Fat Emulsion Intravenous 1,512 ml @ 63 mls/hr TPN CONT IV Last administered on 03/01/19at 22:28; Start 03/01/19 at 22:00; Stop 03/02/19 at 21:59 ; Status DC Sodium Chloride 110 meq/Potassium Chloride 60 meq/ Potassium Phosphate 16 mmol/ Magnesium Sulfate 15 meq/Calcium Gluconate 10 meq/ Multivitamins 10 ml/Chromium / Copper/Manganese/ Seleni/Zn 1 ml/ Total Parenteral Nutrition/Amino Acids/ Dextrose/ Fat Emulsion Intravenous 1,512 ml @ 63 mls/hr TPN CONT IV Last administered on 03/02/19at 22:39; Start 03/02/19 at 22:00; Stop 03/03/19 at 21:59 Active Scripts Active Reported [dilaudid liquid] 1.5 Mg PO PRN Q8HRS PRN [ferous sulfate] Mg PO DAILY [vitamin B12 inject.] MONTHLY Vitamin D3 (Cholecalciferol (Vitamin D3)) 5,000 Unit Tablet 5,000 Unit PO WEEKLY Tablet (Pnv Cmb#95/Ferrous Fumarate/Fa) 1 Each Tablet 1 Tab PO DAILY Benadryl (Diphenhydramine Hcl) 25 Mg Capsule 25 Mg PO PRN Q4-6HRS PRN Zofran Odt (Ondansetron) 4 Mg Tab.rapdis 4 Mg PO BID PRN Biotin 10,000 Mcg Tab.rapdis 10,000 Mcg PO DAILY Simethicone 125 Mg Capsule 125 Mg PO PRN DAILY PRN Pantoprazole Sodium 40 Mg Tablet.dr 40 Mg PO DAILY Clonazepam 1 Mg Tablet 1 Tab PO PRN BID PRN Vitals/I & O Vital Sign - Last 24 Hours 03/02/19 03/02/19 03/02/19 03/02/19 11:00 12:04 15:00 16:26 Temp 98.0 98.4 98.0 98.4 Pulse 94 92 Resp 18 20 18 20 B/P (MAP) 139/89 (106) 128/86 (100) Pulse Ox 96 95 O2 Delivery Room Air Room Air Room Air Room Air 03/02/19 03/02/19 03/02/19 03/02/19 18:04 19:00 20:00 23:00 Temp 97.8 97.7 97.8 97.7 Pulse 79 76 Resp 20 18 18 B/P (MAP) 126/82 (97) 127/87 (100) Pulse Ox 96 96 O2 Delivery Room Air Room Air Room Air Room Air 03/03/19 03/03/19 03/03/19 03/03/19 03:00 07:08 07:11 07:41 Temp 97.5 97.8 97.5 97.8 Pulse 76 73 Resp 18 18 20 20 B/P (MAP) 135/74 (94) 143/87 (105) Pulse Ox 100 99 O2 Delivery Room Air Room Air Room Air Room Air Intake and Output 03/02/19 03/02/19 03/03/19 15:00 23:00 07:00 Intake Total 0 ml 0 ml Output Total 0 ml Balance 0 ml 0 ml LEIGHTON ALMAZAN MD Mar 03, 2019 09:41
[2019-03-03 11:00] VITALS: BP 142/84
--- NOTE | 2019-03-03 11:26 | RAD ---
Acute Abdominal Series: Technique: PA view of the chest and supine and upright views of the abdomen were obtained. History: Pain. Comparison: None. Findings: There is an NG tube with its tip at the stomach. There is right-sided Port-A-Cath. There is air within a few loops of small bowel in the pelvis. 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 Impression: Mildly dilated air-filled loops of small bowel suggests a possible partial small bowel obstruction however this can be confusing in a patient whose has had prior colectomy. Electronically signed by: Rafael Chow III, MD (03/03/2019 11:23 AM) [id number]
--- NOTE | 2019-03-03 11:50 | NUR ---
50cc sesame oil given per NG with 30cc water flush. Plan to allow to dwell for 2 hours, than suction. May repeat Q 8 hrs for a total of three doses
[2019-03-03] MEDS: TPN PER PHARMACY MC PRN (12:36)
--- NOTE | 2019-03-03 13:11 | PDOC ---
PROGRESS NOTES Chief Complaint Chief Complaint Abdominal pain History of Present Illness History of Present Illness Patient was resting in bed today. Her entire family was present in the room today. She has mild abdominal discomfort and fatigue. She still complains of abdominal pain. She states she is still having limited output from her colostomy site. She was given 50cc of sesame oil treatment today. She has an NG tube in place. At this time she has been suctioning her NG tube due to nausea. . Vitals Vitals Vital Signs Date Time Temp Pulse Resp B/P (MAP) Pulse Ox O2 Delivery O2 Flow Rate FiO2 03/03/19 12:33 20 Room Air 03/03/19 07:08 97.8 73 143/87 (105) 99 97.8 Physical Exam General: Alert, Oriented X3, Cooperative, mild distress Heart: Regular rate, Normal S1, Normal S2, No murmurs Lungs: Clear (No wheezes, rales, or rhonchi) Abdomen: Soft (no ostomy output), No tenderness, No masses Extremities: No edema, Normal pulses, No tenderness/swelling Skin: No rashes, No breakdown, No significant lesion Labs LABS Laboratory Tests Test 03/03/19 07:00 White Blood Count 9.3 x10^3/uL (4.0-11.0) Red Blood Count 3.83 x10^6/uL (3.50-5.40) Hemoglobin 12.0 g/dL (12.0-15.5) Hematocrit 36.4 % (36.0-47.0) Mean Corpuscular Volume 95 fL (79-100) Mean Corpuscular Hemoglobin 32 pg (25-35) Mean Corpuscular Hemoglobin Concent 33 g/dL (31-37) Red Cell Distribution Width 13.1 % (11.5-14.5) Platelet Count 234 x10^3/uL (140-400) Neutrophils (%) (Auto) 65 % (31-73) Lymphocytes (%) (Auto) 25 % (24-48) Monocytes (%) (Auto) 9 % (0-9) Eosinophils (%) (Auto) 1 % (0-3) Basophils (%) (Auto) 0 % (0-3) Neutrophils # (Auto) 6.0 x10^3uL (1.8-7.7) Lymphocytes # (Auto) 2.3 x10^3/uL (1.0-4.8) Monocytes # (Auto) 0.8 x10^3/uL (0.0-1.1) Eosinophils # (Auto) 0.1 x10^3/uL (0.0-0.7) Basophils # (Auto) 0.0 x10^3/uL (0.0-0.2) Sodium Level 141 mmol/L (136-145) Potassium Level 3.3 mmol/L (3.5-5.1) Chloride Level 102 mmol/L (98-107) Carbon Dioxide Level 33 mmol/L (21-32) Anion Gap 6 (6-14) Blood Urea Nitrogen 13 mg/dL (7-20) Creatinine 0.8 mg/dL (0.6-1.0) Estimated GFR (Cockcroft-Gault) 79.9 Glucose Level 89 mg/dL (70-99) Calcium Level 8.1 mg/dL (8.5-10.1) Review of Systems Review of Systems Patient complains of abdominal pain, nausea, and vomiting. Patient denies fevers , chills, CP, SOB. Assessment and Plan Assessmemt and Plan Problems Medical Problems: (1) Partial small bowel obstruction Status: Acute Assessment: H/o Crohn's, multiple abd surgeries ( at least 20 x ex lap - mid umbilical scar) Indwelling left sided colostomy N/v, abd pain, decreased ostomy output, weight loss Chronic pain LE swelling Hypokalemia Plan: NG suctioning PRN TPN NPO Dilaudid for pain management Levofloxacin Solu-medrol and benadryl Sesame oil treatment 50cc today 40 meq KCl IV (3.3 03/03) F/u labs Continue home meds PT/OT Ambulation for DVT prophylaxis Comment Review of Relevant I have reviewed the following items kathy (where applicable) has been applied. Labs Laboratory Tests Test 03/01/19 13:15 03/02/19 06:25 03/03/19 07:00 Prothrombin Time 13.3 SEC (11.7-14.0) Prothromb Time International Ratio 1.0 (0.8-1.1) White Blood Count 10.7 x10^3/uL (4.0-11.0) 9.3 x10^3/uL (4.0-11.0) Red Blood Count 4.12 x10^6/uL (3.50-5.40) 3.83 x10^6/uL (3.50-5.40) Hemoglobin 12.8 g/dL (12.0-15.5) 12.0 g/dL (12.0-15.5) Hematocrit 39.0 % (36.0-47.0) 36.4 % (36.0-47.0) Mean Corpuscular Volume 95 fL (79-100) 95 fL (79-100) Mean Corpuscular Hemoglobin 31 pg (25-35) 32 pg (25-35) Mean Corpuscular Hemoglobin Concent 33 g/dL (31-37) 33 g/dL (31-37) Red Cell Distribution Width 13.1 % (11.5-14.5) 13.1 % (11.5-14.5) Platelet Count 254 x10^3/uL (140-400) 234 x10^3/uL (140-400) Neutrophils (%) (Auto) 64 % (31-73) 65 % (31-73) Lymphocytes (%) (Auto) 25 % (24-48) 25 % (24-48) Monocytes (%) (Auto) 10 % (0-9) 9 % (0-9) Eosinophils (%) (Auto) 1 % (0-3) 1 % (0-3) Basophils (%) (Auto) 0 % (0-3) 0 % (0-3) Neutrophils # (Auto) 6.8 x10^3uL (1.8-7.7) 6.0 x10^3uL (1.8-7.7) Lymphocytes # (Auto) 2.7 x10^3/uL (1.0-4.8) 2.3 x10^3/uL (1.0-4.8) Monocytes # (Auto) 1.0 x10^3/uL (0.0-1.1) 0.8 x10^3/uL (0.0-1.1) Eosinophils # (Auto) 0.1 x10^3/uL (0.0-0.7) 0.1 x10^3/uL (0.0-0.7) Basophils # (Auto) 0.0 x10^3/uL (0.0-0.2) 0.0 x10^3/uL (0.0-0.2) Sodium Level 137 mmol/L (136-145) 141 mmol/L (136-145) Potassium Level 3.8 mmol/L (3.5-5.1) 3.3 mmol/L (3.5-5.1) Chloride Level 100 mmol/L (98-107) 102 mmol/L (98-107) Carbon Dioxide Level 32 mmol/L (21-32) 33 mmol/L (21-32) Anion Gap 5 (6-14) 6 (6-14) Blood Urea Nitrogen 13 mg/dL (7-20) 13 mg/dL (7-20) Creatinine 0.8 mg/dL (0.6-1.0) 0.8 mg/dL (0.6-1.0) Estimated GFR (Cockcroft-Gault) 79.9 79.9 Glucose Level 85 mg/dL (70-99) 89 mg/dL (70-99) Calcium Level 8.8 mg/dL (8.5-10.1) 8.1 mg/dL (8.5-10.1) Laboratory Tests Test 03/03/19 07:00 White Blood Count 9.3 x10^3/uL (4.0-11.0) Red Blood Count 3.83 x10^6/uL (3.50-5.40) Hemoglobin 12.0 g/dL (12.0-15.5) Hematocrit 36.4 % (36.0-47.0) Mean Corpuscular Volume 95 fL (79-100) Mean Corpuscular Hemoglobin 32 pg (25-35) Mean Corpuscular Hemoglobin Concent 33 g/dL (31-37) Red Cell Distribution Width 13.1 % (11.5-14.5) Platelet Count 234 x10^3/uL (140-400) Neutrophils (%) (Auto) 65 % (31-73) Lymphocytes (%) (Auto) 25 % (24-48) Monocytes (%) (Auto) 9 % (0-9) Eosinophils (%) (Auto) 1 % (0-3) Basophils (%) (Auto) 0 % (0-3) Neutrophils # (Auto) 6.0 x10^3uL (1.8-7.7) Lymphocytes # (Auto) 2.3 x10^3/uL (1.0-4.8) Monocytes # (Auto) 0.8 x10^3/uL (0.0-1.1) Eosinophils # (Auto) 0.1 x10^3/uL (0.0-0.7) Basophils # (Auto) 0.0 x10^3/uL (0.0-0.2) Sodium Level 141 mmol/L (136-145) Potassium Level 3.3 mmol/L (3.5-5.1) Chloride Level 102 mmol/L (98-107) Carbon Dioxide Level 33 mmol/L (21-32) Anion Gap 6 (6-14) Blood Urea Nitrogen 13 mg/dL (7-20) Creatinine 0.8 mg/dL (0.6-1.0) Estimated GFR (Cockcroft-Gault) 79.9 Glucose Level 89 mg/dL (70-99) Calcium Level 8.1 mg/dL (8.5-10.1) Medications Current Medications Hydromorphone HCl (Dilaudid) 0.5 mg 1X ONCE IV Last administered on 02/21/19at 22:47; Start 02/21/19 at 22:30; Stop 02/21/19 at 22:31; Status DC Ondansetron HCl (Zofran) 4 mg 1X ONCE IV Last administered on 02/21/19at 22:46 ; Start 02/21/19 at 22:30; Stop 02/21/19 at 22:31; Status DC Sodium Chloride (NORMAL SALINE FLUSH for STERILE FIELD) 10 ml [facility] ONCE .ROUTE ; Start 02/21/19 at 22:22; Stop 02/21/19 at 22:23; Status DC Hydromorphone HCl (Dilaudid) 0.5 mg 1X ONCE IV Last administered on 02/22/19at 00:12; Start 02/22/19 at 00:00; Stop 02/22/19 at 00:01; Status DC Ondansetron HCl (Zofran) 4 mg 1X ONCE IV Last administered on 02/22/19at 00:12 ; Start 02/22/19 at 00:00; Stop 02/22/19 at 00:01; Status DC Ondansetron HCl (Zofran) 4 mg PRN Q8HRS PRN IV NAUSEA/VOMITING 1ST CHOICE Last administered on 02/22/19 04:20; Start 02/22/19 at 00:00; Stop 02/22/19 at 09:33 ; Status DC Morphine Sulfate (Morphine Sulfate) 4 mg PRN Q2HR PRN IV SEVERE PAIN; Start 10/31 at 00:00; Stop 02/22/19 at 04:50; Status DC Benzocaine (Hurricaine One) 1 spray 1X ONCE MM Last administered on 02/22/19at 00:12; Start 02/22/19 at 00:30; Stop 02/22/19 at 00:31; Status DC Hydromorphone HCl (Dilaudid) 1.5 mg PRN Q6HRS PRN IV SEVERE PAIN Last administered on 02/22/19 08:11; Start 02/22/19 at 01:30; Stop 02/22/19 at 12:21 ; Status DC Sodium Chloride 1,000 ml @ 125 mls/hr Q8H IV Last administered on 02/22/19 06 :03; Start 02/22/19 at 06:00; Stop 02/22/19 at 09:33; Status DC Hydromorphone HCl (Dilaudid) 1 mg 1X ONCE IV Last administered on 02/22/19 06 :02; Start 02/22/19 at 06:00; Stop 02/22/19 at 06:01; Status DC Ondansetron HCl (Zofran) 4 mg PRN Q6HRS PRN IV NAUSEA/VOMITING 1ST CHOICE Last administered on 03/03/19at 09:36; Start 02/22/19 at 09:45 Diphenhydramine HCl (Benadryl) 25 mg PRN QHS PRN IVP sleep Last administered on 02/22/19 12:45; Start 02/22/19 at 09:45; Stop 02/22/19 at 18:41; Status DC Potassium Chloride/Dextrose/ Sod Cl 1,000 ml @ 100 mls/hr 1X ONCE IV Last administered on 02/22/19 10:51; Start 02/22/19 at 10:30; Stop 02/22/19 at 20:29 ; Status DC Pantoprazole Sodium (PROTONIX VIAL for IV PUSH) 40 mg DAILYAC IVP Last administered on 03/03/19 07:11; Start 02/22/19 at 11:30 Methylprednisolone Sodium Succinate (SOLU-Medrol 40MG VIAL) 20 mg Q12HR IV Last administered on 02/26/19 10:10; Start 02/22/19 at 12:00; Stop 02/26/19 at 12:28; Status DC Hydromorphone HCl (Dilaudid) 1.5 mg PRN Q4HRS PRN IV SEVERE PAIN Last administered on 02/23/19 21:12; Start 02/22/19 at 12:30; Stop 02/23/19 at 22:58 ; Status DC Diphenhydramine HCl (Benadryl) 25 mg PRN Q6HRS PRN IVP ITCHING Last administered on 03/03/19 09:31; Start 02/22/19 at 12:45 Sodium Chloride 1,000 ml @ 100 mls/hr Q10H IV Last administered on 02/24/19 14:22; Start 02/22/19 at 22:00; Stop 02/25/19 at 10:25; Status DC Levofloxacin/ Dextrose 100 ml @ 100 mls/hr Q24H IV Last administered on 21:15; Start 02/23/19 at 21:00 Hydromorphone HCl (Dilaudid) 2 mg PRN Q3HRS PRN IV SEVERE PAIN Last administered on 03/03/19 12:33; Start 02/23/19 at 22:55 Info (Tpn Per Pharmacy) 1 each PRN DAILY PRN MC SEE COMMENTS Last administered on 03/03/19 12:36; Start 02/24/19 at 08:15 Cyanocobalamin (Vitamin B-12) 1,000 mcg 1X STAT IM Last administered on 12:06; Start 02/24/19 at 10:05; Stop 02/24/19 at 10:08; Status DC Sodium Chloride 90 meq/Potassium Chloride 50 meq/ Potassium Phosphate 16 mmol/ Magnesium Sulfate 10 meq/Calcium Gluconate 10 meq/ Multivitamins 10 ml/Chromium / Copper/Manganese/ Seleni/Zn 1 ml/ Total Parenteral Nutrition/Amino Acids/ Dextrose/ Fat Emulsion Intravenous 1,512 ml @ 63 mls/hr TPN CONT IV Last administered on 4/14/19at 22:25; Start 02/24/19 at 22:00; Stop 02/26/19 at 00:37 ; Status DC Diphenhydramine HCl (Benadryl) 50 mg 1X ONCE IVP Last administered on at 02:16; Start 02/25/19 at 02:00; Stop 02/25/19 at 02:01; Status DC Sodium Chloride 90 meq/Potassium Chloride 50 meq/ Potassium Phosphate 16 mmol/ Magnesium Sulfate 15 meq/Calcium Gluconate 10 meq/ Multivitamins 10 ml/Chromium / Copper/Manganese/ Seleni/Zn 1 ml/ Total Parenteral Nutrition/Amino Acids/ Dextrose/ Fat Emulsion Intravenous 1,512 ml @ 63 mls/hr TPN CONT IV ; Start at 22:00; Stop 02/26/19 at 21:59; Status DC Iohexol (Omnipaque 300 Mg/ml) 400 ml 1X ONCE PO ; Start 02/26/19 at 08:15; Stop 02/26/19 at 08:16; Status UNV Methylprednisolone Sodium Succinate (SOLU-Medrol 40MG VIAL) 20 mg DAILY IV Last administered on 03/03/19at 09:26; Start 02/27/19 at 09:00 Sodium Chloride 90 meq/Potassium Chloride 50 meq/ Potassium Phosphate 16 mmol/ Magnesium Sulfate 15 meq/Calcium Gluconate 10 meq/ Multivitamins 10 ml/Chromium / Copper/Manganese/ Seleni/Zn 1 ml/ Total Parenteral Nutrition/Amino Acids/ Dextrose/ Fat Emulsion Intravenous 1,512 ml @ 63 mls/hr TPN CONT IV Last administered on 02/26/19at 22:38; Start 02/26/19 at 22:00; Stop 02/27/19 at 21:59 ; Status DC Furosemide (Lasix) 10 mg DAILY IVP Last administered on 02/27/19at 08:36; Start 02/26/19 at 16:00; Stop 02/27/19 at 10:26; Status DC Iohexol (Omnipaque 300 Mg/ml) 400 ml 1X ONCE PO Last administered on at 10:00; Start 02/27/19 at 08:45; Stop 02/27/19 at 09:01; Status DC Sodium Chloride 90 meq/Potassium Chloride 50 meq/ Potassium Phosphate 16 mmol/ Magnesium Sulfate 15 meq/Calcium Gluconate 10 meq/ Multivitamins 10 ml/Chromium / Copper/Manganese/ Seleni/Zn 1 ml/ Total Parenteral Nutrition/Amino Acids/ Dextrose/ Fat Emulsion Intravenous 1,512 ml @ 63 mls/hr TPN CONT IV Last administered on 02/27/19at 22:59; Start 02/27/19 at 22:00; Stop 02/28/19 at 21:59 ; Status DC Iohexol (Omnipaque 300 Mg/ml) 400 ml 1X ONCE PO Last administered on at 09:45; Start 02/28/19 at 09:45; Stop 02/28/19 at 09:46; Status DC Potassium Chloride/Water 100 ml @ 100 mls/hr Q1H IV Last administered on at 14:34; Start 02/28/19 at 11:00; Stop 02/28/19 at 12:59; Status DC Sodium Chloride 90 meq/Potassium Chloride 60 meq/ Potassium Phosphate 16 mmol/ Magnesium Sulfate 15 meq/Calcium Gluconate 10 meq/ Multivitamins 10 ml/Chromium / Copper/Manganese/ Seleni/Zn 1 ml/ Total Parenteral Nutrition/Amino Acids/ Dextrose/ Fat Emulsion Intravenous 1,512 ml @ 63 mls/hr TPN CONT IV Last administered on 02/28/19at 22:10; Start 02/28/19 at 22:00; Stop 03/01/19 at 21:59 ; Status DC Furosemide (Lasix) 10 mg 1X ONCE IVP Last administered on 02/28/19at 15:15; Start 02/28/19 at 15:15; Stop 02/28/19 at 15:16; Status DC Furosemide (Lasix) 20 mg PRN DAILY PRN IVP lower extremity edema; Start at 15:15; Stop 02/28/19 at 15:15; Status DC Furosemide (Lasix) 10 mg PRN DAILY PRN IVP lower extremity edema Last administered on 03/03/19at 09:39; Start 02/28/19 at 15:15 Sodium Chloride 90 meq/Potassium Chloride 60 meq/ Potassium Phosphate 16 mmol/ Magnesium Sulfate 15 meq/Calcium Gluconate 10 meq/ Multivitamins 10 ml/Chromium / Copper/Manganese/ Seleni/Zn 1 ml/ Total Parenteral Nutrition/Amino Acids/ Dextrose/ Fat Emulsion Intravenous 1,512 ml @ 63 mls/hr TPN CONT IV Last administered on 03/01/19at 22:28; Start 03/01/19 at 22:00; Stop 03/02/19 at 21:59 ; Status DC Sodium Chloride 110 meq/Potassium Chloride 60 meq/ Potassium Phosphate 16 mmol/ Magnesium Sulfate 15 meq/Calcium Gluconate 10 meq/ Multivitamins 10 ml/Chromium / Copper/Manganese/ Seleni/Zn 1 ml/ Total Parenteral Nutrition/Amino Acids/ Dextrose/ Fat Emulsion Intravenous 1,512 ml @ 63 mls/hr TPN CONT IV Last administered on 03/02/19at 22:39; Start 03/02/19 at 22:00; Stop 03/03/19 at 21:59 Sodium Chloride 100 meq/Potassium Chloride 80 meq/ Potassium Phosphate 16 mmol/ Magnesium Sulfate 15 meq/Calcium Gluconate 12 meq/ Multivitamins 10 ml/Chromium / Copper/Manganese/ Seleni/Zn 1 ml/ Total Parenteral Nutrition/Amino Acids/ Dextrose/ Fat Emulsion Intravenous 1,512 ml @ 63 mls/hr TPN CONT IV ; Start at 22:00; Stop 03/04/19 at 21:59 Active Scripts Active Reported [dilaudid liquid] 1.5 Mg PO PRN Q8HRS PRN [ferous sulfate] Mg PO DAILY [vitamin B12 inject.] MONTHLY Vitamin D3 (Cholecalciferol (Vitamin D3)) 5,000 Unit Tablet 5,000 Unit PO WEEKLY Tablet (Pnv Cmb#95/Ferrous Fumarate/Fa) 1 Each Tablet 1 Tab PO DAILY Benadryl (Diphenhydramine Hcl) 25 Mg Capsule 25 Mg PO PRN Q4-6HRS PRN Zofran Odt (Ondansetron) 4 Mg Tab.rapdis 4 Mg PO BID PRN Biotin 10,000 Mcg Tab.rapdis 10,000 Mcg PO DAILY Simethicone 125 Mg Capsule 125 Mg PO PRN DAILY PRN Pantoprazole Sodium 40 Mg Tablet.dr 40 Mg PO DAILY Clonazepam 1 Mg Tablet 1 Tab PO PRN BID PRN Vitals/I & O Vital Sign - Last 24 Hours 03/02/19 03/02/19 03/02/19 03/02/19 15:00 16:26 18:04 19:00 Temp 98.4 97.8 98.4 97.8 Pulse 92 79 Resp 18 20 20 18 B/P (MAP) 128/86 (100) 126/82 (97) Pulse Ox 95 96 O2 Delivery Room Air Room Air Room Air Room Air 03/02/19 03/02/19 03/03/19 03/03/19 20:00 23:00 03:00 07:08 Temp 97.7 97.5 97.8 97.7 97.5 97.8 Pulse 76 76 73 Resp 18 18 18 B/P (MAP) 127/87 (100) 135/74 (94) 143/87 (105) Pulse Ox 96 100 99 O2 Delivery Room Air Room Air Room Air Room Air 03/03/19 03/03/19 03/03/19 03/03/19 07:11 09:34 10:04 12:33 Resp 20 20 20 20 O2 Delivery Room Air Room Air Room Air Room Air Intake and Output 03/02/19 03/02/19 03/03/19 15:00 23:00 07:00 Intake Total 0 ml 0 ml Output Total 0 ml Balance 0 ml 0 ml ALEJANDRO PRINCE III DO Mar 03, 2019 13:11
[2019-03-03] MEDS: POTASSIUM CHL 20MEQ PREMIX 50 ML IV SCH ×2 (14:13→17:00)
[2019-03-03 15:00] VITALS: BP 136/76
--- NOTE | 2019-03-03 17:25 | NUR ---
Patient states today was a "miserable day" for her. No results in ostomy bag to the first sesame oil treatment. Xray showed NG tube just at the tip of the stomach. Advice was to advance tube 5 cm. This was done with immediate output of 200cc noted in suction canister, followed by another 400cc. Patient very distraught that there has been no results in her ostomy bag today.
[2019-03-03 19:00] VITALS: BP 122/76
[2019-03-03] MEDS ORDERED: [UNRECOGNIZED DRUG - OTHER] IV SCH ×10 (22:00)
[2019-03-03] MEDS ORDERED: TOTAL PARENTERAL NUTRITION IV SCH ×10 (22:00)
[2019-03-03] MEDS ORDERED: DEXTROSE 70% IV SCH ×10 (22:00)
[2019-03-03] MEDS ORDERED: AMINO ACID IV SCH ×10 (22:00)
[2019-03-03 23:00] VITALS: BP 110/69
[2019-03-04] MEDS: HYDROmorphone 2 MG/ML VIAL IV PRN ×8 (00:08→22:18)
--- NOTE | 2019-03-04 00:45 | NUR ---
At 2200, 50 cc sesame oil and 30 cc water was placed in NG tube to dwell. After 2 hrs pt was hooked up to suction and over 45 min resulted 400 cc's of light brown liquid. Patient states she feels bloated. Checking patients ostomy at 0330 pt reports no output. Will repeat sesame oil treatment at 0600 for 3rd time.
[2019-03-04 03:19] VITALS: BP 124/67
[2019-03-04] MEDS: ONDANSETRON PF 4 MG/2 ML VIAL. IV PRN ×4 (03:38→22:17)
[2019-03-04] MEDS: diphenhydrAMINE 50 MG/ML VIAL IVP PRN ×4 (03:38→22:18)
[2019-03-04 07:00] VITALS: BP 128/81
[2019-03-04 07:00] LABS: BASO % 0 % (0-3); EOS # 0.1 x10^3/uL (0.0-0.7); EOS % 1 % (0-3); HEMATOCRIT 35.3 % (36.0-47.0); HEMOGLOBIN 11.5 g/dL (12.0-15.5); LYMPH # 2.1 x10^3/uL (1.0-4.8); LYMPH % 22 % (24-48); MEAN CORPUSCULAR HEMOGLOBIN 31 pg (25-35); MEAN CORPUSCULAR HGB CONC 33 g/dL (31-37); MEAN CORPUSCULAR VOLUME 96 fL (79-100); MONO # 0.9 x10^3/uL (0.0-1.1); MONO % 10 % (0-9); NEUT # 6.5 x10^3uL (1.8-7.7); NEUT % 67 % (31-73); PLATELET COUNT 226 x10^3/uL (140-400); RED BLOOD COUNT 3.69 x10^6/uL (3.50-5.40); RED CELL DISTRIBUTION WIDTH 13.3 % (11.5-14.5); WHITE BLOOD COUNT 9.6 x10^3/uL (4.0-11.0)
[2019-03-04 07:16] LABS: CALCIUM 8.3 mg/dL (8.5-10.1); CREATININE 0.8 mg/dL (0.6-1.0); GFR 79.9; POTASSIUM 3.9 mmol/L (3.5-5.1)
[2019-03-04 07:17] LABS: MAGNESIUM 2.1 mg/dL (1.8-2.4); PHOSPHORUS 3.3 mg/dL (2.6-4.7)
--- NOTE | 2019-03-04 09:02 | PDOC ---
KERRIE VARELA KIER BOILER 03/04/19 0902: SURGICAL PROGRESS NOTE Subjective continued issues with bloating, minimal ileostomy output, pain tried sesame seed oil again Vital Signs Vital Signs Date Time Temp Pulse Resp B/P (MAP) Pulse Ox O2 Delivery O2 Flow Rate FiO2 03/04/19 07:00 97.6 100 16 128/81 (97) 96 Room Air 97.6 I&O Intake and Output 03/04/19 07:00 Intake Total 330 ml Output Total 475 ml Balance -145 ml Intake Oral 250 ml Other 80 ml Output Stool Total 75 ml Drainage Total 400 ml # Voids 2 General: Alert, Oriented X3, Cooperative, No acute distress HEENT: Other (NG present ) Abdomen: Soft, Other (tender lower abdomen ) Labs Laboratory Tests Test 03/03/19 07:00 03/04/19 06:30 White Blood Count 9.3 x10^3/uL (4.0-11.0) 9.6 x10^3/uL (4.0-11.0) Red Blood Count 3.83 x10^6/uL (3.50-5.40) 3.69 x10^6/uL (3.50-5.40) Hemoglobin 12.0 g/dL (12.0-15.5) 11.5 g/dL (12.0-15.5) Hematocrit 36.4 % (36.0-47.0) 35.3 % (36.0-47.0) Mean Corpuscular Volume 95 fL (79-100) 96 fL (79-100) Mean Corpuscular Hemoglobin 32 pg (25-35) 31 pg (25-35) Mean Corpuscular Hemoglobin Concent 33 g/dL (31-37) 33 g/dL (31-37) Red Cell Distribution Width 13.1 % (11.5-14.5) 13.3 % (11.5-14.5) Platelet Count 234 x10^3/uL (140-400) 226 x10^3/uL (140-400) Neutrophils (%) (Auto) 65 % (31-73) 67 % (31-73) Lymphocytes (%) (Auto) 25 % (24-48) 22 % (24-48) Monocytes (%) (Auto) 9 % (0-9) 10 % (0-9) Eosinophils (%) (Auto) 1 % (0-3) 1 % (0-3) Basophils (%) (Auto) 0 % (0-3) 0 % (0-3) Neutrophils # (Auto) 6.0 x10^3uL (1.8-7.7) 6.5 x10^3uL (1.8-7.7) Lymphocytes # (Auto) 2.3 x10^3/uL (1.0-4.8) 2.1 x10^3/uL (1.0-4.8) Monocytes # (Auto) 0.8 x10^3/uL (0.0-1.1) 0.9 x10^3/uL (0.0-1.1) Eosinophils # (Auto) 0.1 x10^3/uL (0.0-0.7) 0.1 x10^3/uL (0.0-0.7) Basophils # (Auto) 0.0 x10^3/uL (0.0-0.2) 0.0 x10^3/uL (0.0-0.2) Sodium Level 141 mmol/L (136-145) 140 mmol/L (136-145) Potassium Level 3.3 mmol/L (3.5-5.1) 3.9 mmol/L (3.5-5.1) Chloride Level 102 mmol/L (98-107) 103 mmol/L (98-107) Carbon Dioxide Level 33 mmol/L (21-32) 32 mmol/L (21-32) Anion Gap 6 (6-14) 5 (6-14) Blood Urea Nitrogen 13 mg/dL (7-20) 13 mg/dL (7-20) Creatinine 0.8 mg/dL (0.6-1.0) 0.8 mg/dL (0.6-1.0) Estimated GFR (Cockcroft-Gault) 79.9 79.9 Glucose Level 89 mg/dL (70-99) 93 mg/dL (70-99) Calcium Level 8.1 mg/dL (8.5-10.1) 8.3 mg/dL (8.5-10.1) Phosphorus Level 3.3 mg/dL (2.6-4.7) Magnesium Level 2.1 mg/dL (1.8-2.4) Laboratory Tests Test 03/04/19 06:30 White Blood Count 9.6 x10^3/uL (4.0-11.0) Red Blood Count 3.69 x10^6/uL (3.50-5.40) Hemoglobin 11.5 g/dL (12.0-15.5) Hematocrit 35.3 % (36.0-47.0) Mean Corpuscular Volume 96 fL (79-100) Mean Corpuscular Hemoglobin 31 pg (25-35) Mean Corpuscular Hemoglobin Concent 33 g/dL (31-37) Red Cell Distribution Width 13.3 % (11.5-14.5) Platelet Count 226 x10^3/uL (140-400) Neutrophils (%) (Auto) 67 % (31-73) Lymphocytes (%) (Auto) 22 % (24-48) Monocytes (%) (Auto) 10 % (0-9) Eosinophils (%) (Auto) 1 % (0-3) Basophils (%) (Auto) 0 % (0-3) Neutrophils # (Auto) 6.5 x10^3uL (1.8-7.7) Lymphocytes # (Auto) 2.1 x10^3/uL (1.0-4.8) Monocytes # (Auto) 0.9 x10^3/uL (0.0-1.1) Eosinophils # (Auto) 0.1 x10^3/uL (0.0-0.7) Basophils # (Auto) 0.0 x10^3/uL (0.0-0.2) Sodium Level 140 mmol/L (136-145) Potassium Level 3.9 mmol/L (3.5-5.1) Chloride Level 103 mmol/L (98-107) Carbon Dioxide Level 32 mmol/L (21-32) Anion Gap 5 (6-14) Blood Urea Nitrogen 13 mg/dL (7-20) Creatinine 0.8 mg/dL (0.6-1.0) Estimated GFR (Cockcroft-Gault) 79.9 Glucose Level 93 mg/dL (70-99) Calcium Level 8.3 mg/dL (8.5-10.1) Phosphorus Level 3.3 mg/dL (2.6-4.7) Magnesium Level 2.1 mg/dL (1.8-2.4) Problem List Problems Medical Problems: (1) Partial small bowel obstruction Status: Acute Assessment/Plan will review with Dr Mai ongoing pain, obstructive symptoms OPAL MAI MD 03/05/19 0859: SURGICAL PROGRESS NOTE Assessment/Plan SBFT gastrografin passed to ileostomy bag in 20 minutes, no evidence of obstruction. No surgical indications. Would defer to GI for further treatment recommendations KERRIE VARELA APRN Mar 04, 2019 09:02 OPAL MAI MD Mar 05, 2019 08:59
[2019-03-04] MEDS: methylPREDNISolone SOD SUCC PF 40 MG/ML VIAL. IV SCH (09:10)
[2019-03-04] MEDS: PANTOPRAZOLE IV PUSH 40 MG VIAL. IVP SCH (09:11)
[2019-03-04 11:00] VITALS: BP 140/91
--- NOTE | 2019-03-04 11:00 | PDOC ---
Subjective: Subjective: Frustrated. Keeps notes - had 125cc ostomy output on Fri, 80 Sat, 130 Sun, and 150 overnight. Ongoing pain. Requires NG suction intermittently. Tried sesame oil again. Doesn't want surgery. Scared to try eating. Objective: Objective: Remains on IV steroids QD, using Lasix PRN. Vital Signs: Vital Signs Date Time Temp Pulse Resp B/P (MAP) Pulse Ox O2 Delivery O2 Flow Rate FiO2 03/04/19 09:13 Room Air 03/04/19 07:00 97.6 100 16 128/81 (97) 96 97.6 Labs: Laboratory Tests Test 03/04/19 06:30 White Blood Count 9.6 x10^3/uL Red Blood Count 3.69 x10^6/uL Hemoglobin 11.5 g/dL Hematocrit 35.3 % Mean Corpuscular Volume 96 fL Mean Corpuscular Hemoglobin 31 pg Mean Corpuscular Hemoglobin Concent 33 g/dL Red Cell Distribution Width 13.3 % Platelet Count 226 x10^3/uL Neutrophils (%) (Auto) 67 % Lymphocytes (%) (Auto) 22 % Monocytes (%) (Auto) 10 % Eosinophils (%) (Auto) 1 % Basophils (%) (Auto) 0 % Neutrophils # (Auto) 6.5 x10^3uL Lymphocytes # (Auto) 2.1 x10^3/uL Monocytes # (Auto) 0.9 x10^3/uL Eosinophils # (Auto) 0.1 x10^3/uL Basophils # (Auto) 0.0 x10^3/uL Sodium Level 140 mmol/L Potassium Level 3.9 mmol/L Chloride Level 103 mmol/L Carbon Dioxide Level 32 mmol/L Anion Gap 5 Blood Urea Nitrogen 13 mg/dL Creatinine 0.8 mg/dL Estimated GFR (Cockcroft-Gault) 79.9 Glucose Level 93 mg/dL Calcium Level 8.3 mg/dL Phosphorus Level 3.3 mg/dL Magnesium Level 2.1 mg/dL Imaging: [facility] 03/03 Impression: Mildly dilated air-filled loops of small bowel suggests a possible partial small bowel obstruction however this can be confusing in a patient whose has had prior colectomy. PE: GEN: NAD HEENT: NG clamped LUNGS: CTAB HEART: RRR ABD: tender diffusely - worst in area of hernia, hyperactive BS RLQ, less so left abd around ostomy NEURO/PSYCH: A & O 3, tearful A/P: H/o Crohn's, multiple abd surgeries, chronic pain, pSBO -- Ongoing symptoms, will review w/ Dr. Burch. MARIA EUGENIA MO Mar 04, 2019 11:00
--- NOTE | 2019-03-04 11:42 | PDOC ---
PROGRESS NOTES Chief Complaint Chief Complaint Abdominal pain History of Present Illness History of Present Illness Patient was resting in bed today. She has mild abdominal discomfort and fatigue. She states she is still having limited output from her colostomy site. She states she got an output of 75cc from her ostomy this morning and 80cc yesterday. She was given 50cc of sesame oil treatment yesterday with little results. She has an NG tube in place. Currently it is clamped, but she has been doing intermittent suctioning. She denies any vomiting. She states her hernia is painful. Her stoma was examined and it was healthy but with some prolapse. Her acute abdominal series on 03/03 showed dilated air filled loops of the small bowel- cannot rule out obstruction. Vitals Vitals Vital Signs Date Time Temp Pulse Resp B/P (MAP) Pulse Ox O2 Delivery O2 Flow Rate FiO2 03/04/19 11:00 98.3 88 16 140/91 (107) 97 Room Air 98.3 Physical Exam General: Alert, Oriented X3, Cooperative, No acute distress Heart: Regular rate, Normal S1, Normal S2, No murmurs Lungs: Clear (No wheezes, rales, or rhonchi) Abdomen: Soft, Other (tender lower abdomen at hernia site, stoma is healthy but prolapse present.) Extremities: No edema, Normal pulses, No tenderness/swelling Skin: No rashes, No breakdown, No significant lesion Labs LABS Laboratory Tests Test 03/04/19 06:30 White Blood Count 9.6 x10^3/uL (4.0-11.0) Red Blood Count 3.69 x10^6/uL (3.50-5.40) Hemoglobin 11.5 g/dL (12.0-15.5) Hematocrit 35.3 % (36.0-47.0) Mean Corpuscular Volume 96 fL (79-100) Mean Corpuscular Hemoglobin 31 pg (25-35) Mean Corpuscular Hemoglobin Concent 33 g/dL (31-37) Red Cell Distribution Width 13.3 % (11.5-14.5) Platelet Count 226 x10^3/uL (140-400) Neutrophils (%) (Auto) 67 % (31-73) Lymphocytes (%) (Auto) 22 % (24-48) Monocytes (%) (Auto) 10 % (0-9) Eosinophils (%) (Auto) 1 % (0-3) Basophils (%) (Auto) 0 % (0-3) Neutrophils # (Auto) 6.5 x10^3uL (1.8-7.7) Lymphocytes # (Auto) 2.1 x10^3/uL (1.0-4.8) Monocytes # (Auto) 0.9 x10^3/uL (0.0-1.1) Eosinophils # (Auto) 0.1 x10^3/uL (0.0-0.7) Basophils # (Auto) 0.0 x10^3/uL (0.0-0.2) Sodium Level 140 mmol/L (136-145) Potassium Level 3.9 mmol/L (3.5-5.1) Chloride Level 103 mmol/L (98-107) Carbon Dioxide Level 32 mmol/L (21-32) Anion Gap 5 (6-14) Blood Urea Nitrogen 13 mg/dL (7-20) Creatinine 0.8 mg/dL (0.6-1.0) Estimated GFR (Cockcroft-Gault) 79.9 Glucose Level 93 mg/dL (70-99) Calcium Level 8.3 mg/dL (8.5-10.1) Phosphorus Level 3.3 mg/dL (2.6-4.7) Magnesium Level 2.1 mg/dL (1.8-2.4) Review of Systems Review of Systems Patient complains of abdominal pain and nausea. She denies fevers, chills, vomiting, CP, SOB. Little ostomy output. Assessment and Plan Assessmemt and Plan Problems Medical Problems: (1) Partial small bowel obstruction Status: Acute Assessment: H/o Crohn's, multiple abd surgeries ( at least 20 x ex lap - mid umbilical scar) Indwelling left sided colostomy N/v, abd pain, decreased ostomy output, weight loss Chronic pain LE swelling Hypokalemia Plan: NG suctioning PRN TPN NPO Dilaudid for pain management Levofloxacin Solu-medrol and benadryl GI consult General surgery consult F/u labs Continue home meds PT/OT Ambulation for DVT prophylaxis Comment Review of Relevant I have reviewed the following items kathy (where applicable) has been applied. Labs Laboratory Tests Test 03/03/19 07:00 4/22/19 06:30 White Blood Count 9.3 x10^3/uL (4.0-11.0) 9.6 x10^3/uL (4.0-11.0) Red Blood Count 3.83 x10^6/uL (3.50-5.40) 3.69 x10^6/uL (3.50-5.40) Hemoglobin 12.0 g/dL (12.0-15.5) 11.5 g/dL (12.0-15.5) Hematocrit 36.4 % (36.0-47.0) 35.3 % (36.0-47.0) Mean Corpuscular Volume 95 fL (79-100) 96 fL (79-100) Mean Corpuscular Hemoglobin 32 pg (25-35) 31 pg (25-35) Mean Corpuscular Hemoglobin Concent 33 g/dL (31-37) 33 g/dL (31-37) Red Cell Distribution Width 13.1 % (11.5-14.5) 13.3 % (11.5-14.5) Platelet Count 234 x10^3/uL (140-400) 226 x10^3/uL (140-400) Neutrophils (%) (Auto) 65 % (31-73) 67 % (31-73) Lymphocytes (%) (Auto) 25 % (24-48) 22 % (24-48) Monocytes (%) (Auto) 9 % (0-9) 10 % (0-9) Eosinophils (%) (Auto) 1 % (0-3) 1 % (0-3) Basophils (%) (Auto) 0 % (0-3) 0 % (0-3) Neutrophils # (Auto) 6.0 x10^3uL (1.8-7.7) 6.5 x10^3uL (1.8-7.7) Lymphocytes # (Auto) 2.3 x10^3/uL (1.0-4.8) 2.1 x10^3/uL (1.0-4.8) Monocytes # (Auto) 0.8 x10^3/uL (0.0-1.1) 0.9 x10^3/uL (0.0-1.1) Eosinophils # (Auto) 0.1 x10^3/uL (0.0-0.7) 0.1 x10^3/uL (0.0-0.7) Basophils # (Auto) 0.0 x10^3/uL (0.0-0.2) 0.0 x10^3/uL (0.0-0.2) Sodium Level 141 mmol/L (136-145) 140 mmol/L (136-145) Potassium Level 3.3 mmol/L (3.5-5.1) 3.9 mmol/L (3.5-5.1) Chloride Level 102 mmol/L (98-107) 103 mmol/L (98-107) Carbon Dioxide Level 33 mmol/L (21-32) 32 mmol/L (21-32) Anion Gap 6 (6-14) 5 (6-14) Blood Urea Nitrogen 13 mg/dL (7-20) 13 mg/dL (7-20) Creatinine 0.8 mg/dL (0.6-1.0) 0.8 mg/dL (0.6-1.0) Estimated GFR (Cockcroft-Gault) 79.9 79.9 Glucose Level 89 mg/dL (70-99) 93 mg/dL (70-99) Calcium Level 8.1 mg/dL (8.5-10.1) 8.3 mg/dL (8.5-10.1) Phosphorus Level 3.3 mg/dL (2.6-4.7) Magnesium Level 2.1 mg/dL (1.8-2.4) Laboratory Tests Test 03/04/19 06:30 White Blood Count 9.6 x10^3/uL (4.0-11.0) Red Blood Count 3.69 x10^6/uL (3.50-5.40) Hemoglobin 11.5 g/dL (12.0-15.5) Hematocrit 35.3 % (36.0-47.0) Mean Corpuscular Volume 96 fL (79-100) Mean Corpuscular Hemoglobin 31 pg (25-35) Mean Corpuscular Hemoglobin Concent 33 g/dL (31-37) Red Cell Distribution Width 13.3 % (11.5-14.5) Platelet Count 226 x10^3/uL (140-400) Neutrophils (%) (Auto) 67 % (31-73) Lymphocytes (%) (Auto) 22 % (24-48) Monocytes (%) (Auto) 10 % (0-9) Eosinophils (%) (Auto) 1 % (0-3) Basophils (%) (Auto) 0 % (0-3) Neutrophils # (Auto) 6.5 x10^3uL (1.8-7.7) Lymphocytes # (Auto) 2.1 x10^3/uL (1.0-4.8) Monocytes # (Auto) 0.9 x10^3/uL (0.0-1.1) Eosinophils # (Auto) 0.1 x10^3/uL (0.0-0.7) Basophils # (Auto) 0.0 x10^3/uL (0.0-0.2) Sodium Level 140 mmol/L (136-145) Potassium Level 3.9 mmol/L (3.5-5.1) Chloride Level 103 mmol/L (98-107) Carbon Dioxide Level 32 mmol/L (21-32) Anion Gap 5 (6-14) Blood Urea Nitrogen 13 mg/dL (7-20) Creatinine 0.8 mg/dL (0.6-1.0) Estimated GFR (Cockcroft-Gault) 79.9 Glucose Level 93 mg/dL (70-99) Calcium Level 8.3 mg/dL (8.5-10.1) Phosphorus Level 3.3 mg/dL (2.6-4.7) Magnesium Level 2.1 mg/dL (1.8-2.4) Medications Current Medications Hydromorphone HCl (Dilaudid) 0.5 mg 1X ONCE IV Last administered on 02/21/19at 22:47; Start 02/21/19 at 22:30; Stop 02/21/19 at 22:31; Status DC Ondansetron HCl (Zofran) 4 mg 1X ONCE IV Last administered on 02/21/19at 22:46; Start 02/21/19 at 22:30; Stop 02/21/19 at 22:31; Status DC Sodium Chloride (NORMAL SALINE FLUSH for STERILE FIELD) 10 ml STK-MED ONCE .ROUTE ; Start 02/21/19 at 22:22; Stop 02/21/19 at 22:23; Status DC Hydromorphone HCl (Dilaudid) 0.5 mg 1X ONCE IV Last administered on 02/22/19 00:12; Start 02/22/19 at 00:00; Stop 02/22/19 at 00:01; Status DC Ondansetron HCl (Zofran) 4 mg 1X ONCE IV Last administered on 02/22/19at 00:12; Start 02/22/19 at 00:00; Stop 02/22/19 at 00:01; Status DC Ondansetron HCl (Zofran) 4 mg PRN Q8HRS PRN IV NAUSEA/VOMITING 1ST CHOICE Last administered on 02/22/19 04:20; Start 02/22/19 at 00:00; Stop 02/22/19 at 09:33; Status DC Morphine Sulfate (Morphine Sulfate) 4 mg PRN Q2HR PRN IV SEVERE PAIN; Start 02/22/19 at 00:00; Stop 02/22/19 at 04:50; Status DC Benzocaine (Hurricaine One) 1 spray 1X ONCE MM Last administered on 02/22/19 00:12; Start 02/22/19 at 00:30; Stop 02/22/19 at 00:31; Status DC Hydromorphone HCl (Dilaudid) 1.5 mg PRN Q6HRS PRN IV SEVERE PAIN Last administered on 02/22/19 08:11; Start 02/22/19 at 01:30; Stop 02/22/19 at 12:21; Status DC Sodium Chloride 1,000 ml @ 125 mls/hr Q8H IV Last administered on 02/22/19 06:03; Start 02/22/19 at 06:00; Stop 02/22/19 at 09:33; Status DC Hydromorphone HCl (Dilaudid) 1 mg 1X ONCE IV Last administered on 02/22/19 06:02; Start 02/22/19 at 06:00; Stop 02/22/19 at 06:01; Status DC Ondansetron HCl (Zofran) 4 mg PRN Q6HRS PRN IV NAUSEA/VOMITING 1ST CHOICE Last administered on 03/04/19at 09:47; Start 02/22/19 at 09:45 Diphenhydramine HCl (Benadryl) 25 mg PRN QHS PRN IVP sleep Last administered on 02/22/19 12:45; Start 02/22/19 at 09:45; Stop 02/22/19 at 18:41; Status DC Potassium Chloride/Dextrose/ Sod Cl 1,000 ml @ 100 mls/hr 1X ONCE IV Last administered on 02/22/19 10:51; Start 02/22/19 at 10:30; Stop 02/22/19 at 20:29; Status DC Pantoprazole Sodium (PROTONIX VIAL for IV PUSH) 40 mg DAILYAC IVP Last administered on 03/04/19 09:11; Start 02/22/19 at 11:30 Methylprednisolone Sodium Succinate (SOLU-Medrol 40MG VIAL) 20 mg Q12HR IV Last administered on 02/26/19 10:10; Start 02/22/19 at 12:00; Stop 02/26/19 at 12:28; Status DC Hydromorphone HCl (Dilaudid) 1.5 mg PRN Q4HRS PRN IV SEVERE PAIN Last administered on 02/23/19 21:12; Start 02/22/19 at 12:30; Stop 02/23/19 at 22:58; Status DC Diphenhydramine HCl (Benadryl) 25 mg PRN Q6HRS PRN IVP ITCHING Last administered on 03/04/19 09:47; Start 02/22/19 at 12:45 Sodium Chloride 1,000 ml @ 100 mls/hr Q10H IV Last administered on 02/24/19 14:22; Start 02/22/19 at 22:00; Stop 02/25/19 at 10:25; Status DC Levofloxacin/ Dextrose 100 ml @ 100 mls/hr Q24H IV Last administered on 03/03/19 21:40; Start 02/23/19 at 21:00 Hydromorphone HCl (Dilaudid) 2 mg PRN Q3HRS PRN IV SEVERE PAIN Last administered on 03/04/19 09:13; Start 02/23/19 at 22:55 Info (Tpn Per Pharmacy) 1 each PRN DAILY PRN MC SEE COMMENTS Last administered on 03/03/19 12:36; Start 02/24/19 at 08:15 Cyanocobalamin (Vitamin B-12) 1,000 mcg 1X STAT IM Last administered on 4/14/19at 12:06; Start 02/24/19 at 10:05; Stop 02/24/19 at 10:08; Status DC Sodium Chloride 90 meq/Potassium Chloride 50 meq/ Potassium Phosphate 16 mmol/ Magnesium Sulfate 10 meq/Calcium Gluconate 10 meq/ Multivitamins 10 ml/Chromium/ Copper/Manganese/ Seleni/Zn 1 ml/ Total Parenteral Nutrition/Amino Acids/Dextrose/ Fat Emulsion Intravenous 1,512 ml @ 63 mls/hr TPN CONT IV Last administered on 02/24/19at 22:25; Start 02/24/19 at 22:00; Stop 02/26/19 at 00:37; Status DC Diphenhydramine HCl (Benadryl) 50 mg 1X ONCE IVP Last administered on 02/25/19at 02:16; Start 02/25/19 at 02:00; Stop 02/25/19 at 02:01; Status DC Sodium Chloride 90 meq/Potassium Chloride 50 meq/ Potassium Phosphate 16 mmol/ Magnesium Sulfate 15 meq/Calcium Gluconate 10 meq/ Multivitamins 10 ml/Chromium/ Copper/Manganese/ Seleni/Zn 1 ml/ Total Parenteral Nutrition/Amino Acids/Dextrose/ Fat Emulsion Intravenous 1,512 ml @ 63 mls/hr TPN CONT IV ; Start 02/25/19 at 22:00; Stop 02/26/19 at 21:59; Status DC Iohexol (Omnipaque 300 Mg/ml) 400 ml 1X ONCE PO ; Start 02/26/19 at 08:15; Stop 02/26/19 at 08:16; Status UNV Methylprednisolone Sodium Succinate (SOLU-Medrol 40MG VIAL) 20 mg DAILY IV Last administered on 03/04/19at 09:10; Start 02/27/19 at 09:00 Sodium Chloride 90 meq/Potassium Chloride 50 meq/ Potassium Phosphate 16 mmol/ Magnesium Sulfate 15 meq/Calcium Gluconate 10 meq/ Multivitamins 10 ml/Chromium/ Copper/Manganese/ Seleni/Zn 1 ml/ Total Parenteral Nutrition/Amino Acids/Dextrose/ Fat Emulsion Intravenous 1,512 ml @ 63 mls/hr TPN CONT IV Last administered on 02/26/19at 22:38; Start 02/26/19 at 22:00; Stop 02/27/19 at 21:59; Status DC Furosemide (Lasix) 10 mg DAILY IVP Last administered on 02/27/19at 08:36; Start 02/26/19 at 16:00; Stop 02/27/19 at 10:26; Status DC Iohexol (Omnipaque 300 Mg/ml) 400 ml 1X ONCE PO Last administered on 02/27/19at 10:00; Start 02/27/19 at 08:45; Stop 02/27/19 at 09:01; Status DC Sodium Chloride 90 meq/Potassium Chloride 50 meq/ Potassium Phosphate 16 mmol/ Magnesium Sulfate 15 meq/Calcium Gluconate 10 meq/ Multivitamins 10 ml/Chromium/ Copper/Manganese/ Seleni/Zn 1 ml/ Total Parenteral Nutrition/Amino Acids/De xtrose/ Fat Emulsion Intravenous 1,512 ml @ 63 mls/hr TPN CONT IV Last administered on 02/27/19at 22:59; Start 02/27/19 at 22:00; Stop 02/28/19 at 21:59; Status DC Iohexol (Omnipaque 300 Mg/ml) 400 ml 1X ONCE PO Last administered on 02/28/19at 09:45; Start 02/28/19 at 09:45; Stop 02/28/19 at 09:46; Status DC Potassium Chloride/Water 100 ml @ 100 mls/hr Q1H IV Last administered on 02/28/19at 14:34; Start 02/28/19 at 11:00; Stop 02/28/19 at 12:59; Status DC Sodium Chloride 90 meq/Potassium Chloride 60 meq/ Potassium Phosphate 16 mmol/ Magnesium Sulfate 15 meq/Calcium Gluconate 10 meq/ Multivitamins 10 ml/Chromium/ Copper/Manganese/ Seleni/Zn 1 ml/ Total Parenteral Nutrition/Amino Acids/Dextrose/ Fat Emulsion Intravenous 1,512 ml @ 63 mls/hr TPN CONT IV Last administered on 02/28/19at 22:10; Start 02/28/19 at 22:00; Stop 03/01/19 at 21:59; Status DC Furosemide (Lasix) 10 mg 1X ONCE IVP Last administered on 02/28/19at 15:15; Start 02/28/19 at 15:15; Stop 02/28/19 at 15:16; Status DC Furosemide (Lasix) 20 mg PRN DAILY PRN IVP lower extremity edema; Start 02/28/19 at 15:15; Stop 02/28/19 at 15:15; Status DC Furosemide (Lasix) 10 mg PRN DAILY PRN IVP lower extremity edema Last administered on 03/03/19at 09:39; Start 02/28/19 at 15:15 Sodium Chloride 90 meq/Potassium Chloride 60 meq/ Potassium Phosphate 16 mmol/ Magnesium Sulfate 15 meq/Calcium Gluconate 10 meq/ Multivitamins 10 ml/Chromium/ Copper/Manganese/ Seleni/Zn 1 ml/ Total Parenteral Nutrition/Amino Acids/Dextrose/ Fat Emulsion Intravenous 1,512 ml @ 63 mls/hr TPN CONT IV Last administered on 03/01/19at 22:28; Start 03/01/19 at 22:00; Stop 03/02/19 at 21:59; Status DC Sodium Chloride 110 meq/Potassium Chloride 60 meq/ Potassium Phosphate 16 mmol/ Magnesium Sulfate 15 meq/Calcium Gluconate 10 meq/ Multivitamins 10 ml/Chromium/ Copper/Manganese/ Seleni/Zn 1 ml/ Total Parenteral Nutrition/Amino Acids/Dextrose/ Fat Emulsion Intravenous 1,512 ml @ 63 mls/hr TPN CONT IV Last administered on 03/02/19at 22:39; Start 03/02/19 at 22:00; Stop 03/03/19 at 21:59; Status DC Sodium Chloride 100 meq/Potassium Chloride 80 meq/ Potassium Phosphate 16 mmol/ Magnesium Sulfate 15 meq/Calcium Gluconate 12 meq/ Multivitamins 10 ml/Chromium/ Copper/Manganese/ Seleni/Zn 1 ml/ Total Parenteral Nutrition/Amino Acids/Dext michelle/ Fat Emulsion Intravenous 1,512 ml @ 63 mls/hr TPN CONT IV Last administered on 03/03/19at 23:28; Start 03/03/19 at 22:00; Stop 03/04/19 at 21:59 Potassium Chloride/Water 50 ml @ 50 mls/hr Q1H IV Last administered on 03/03/19at 17:00; Start 03/03/19 at 13:30; Stop 03/03/19 at 15:29; Status DC Active Scripts Active Reported [dilaudid liquid] 1.5 Mg PO PRN Q8HRS PRN [ferous sulfate] Mg PO DAILY [vitamin B12 inject.] MONTHLY Vitamin D3 (Cholecalciferol (Vitamin D3)) 5,000 Unit Tablet 5,000 Unit PO WEEKLY Tablet (Pnv Cmb#95/Ferrous Fumarate/Fa) 1 Each Tablet 1 Tab PO DAILY Benadryl (Diphenhydramine Hcl) 25 Mg Capsule 25 Mg PO PRN Q4-6HRS PRN Zofran Odt (Ondansetron) 4 Mg Tab.rapdis 4 Mg PO BID PRN Biotin 10,000 Mcg Tab.rapdis 10,000 Mcg PO DAILY Simethicone 125 Mg Capsule 125 Mg PO PRN DAILY PRN Pantoprazole Sodium 40 Mg Tablet.dr 40 Mg PO DAILY Clonazepam 1 Mg Tablet 1 Tab PO PRN BID PRN Vitals/I & O Vital Sign - Last 24 Hours 03/03/19 03/03/19 03/03/19 03/03/19 12:33 15:00 15:18 18:25 Temp 98.3 98.3 Pulse 101 Resp 20 18 20 20 B/P (MAP) 136/76 (96) Pulse Ox 94 O2 Delivery Room Air Room Air Room Air Room Air 03/03/19 03/03/19 03/03/19 03/03/19 18:55 19:00 20:00 23:00 Temp 98.3 97.6 98.3 97.6 Pulse 75 78 Resp 20 18 18 B/P (MAP) 122/76 (91) 110/69 (83) Pulse Ox 94 94 O2 Delivery Room Air Room Air Room Air 03/04/19 03/04/19 03/04/19 03/04/19 03:19 07:00 08:00 09:11 Temp 98.6 97.6 98.6 97.6 Pulse 75 100 Resp 16 16 B/P (MAP) 124/67 (86) 128/81 (97) Pulse Ox 98 96 O2 Delivery Room Air Room Air Room Air Room Air 03/04/19 03/04/19 09:13 11:00 Temp 98.3 98.3 Pulse 88 Resp 16 B/P (MAP) 140/91 (107) Pulse Ox 97 O2 Delivery Room Air Room Air Intake and Output 03/03/19 03/03/19 03/04/19 14:59 22:59 06:59 Intake Total 250 ml 80 ml Output Total 0 ml 475 ml Balance 0 ml 250 ml -395 ml ALEJANDRO PRINCE III DO Mar 04, 2019 11:42
[2019-03-04] MEDS: TPN PER PHARMACY MC PRN (13:42)
--- NOTE | 2019-03-04 13:43 | NUR ---
Pharmacy TPN Dosing Note S: MATTHEW HOLGUIN is a 39 year old F Currently receiving Central Continuous TPN started 02/24/19 B:Pertinent PMH: Partial SBO. No oral intake for long period of time. Height: 5 feet, 7 inches Weight: 71.242374 kg Current diet: NPO LABS: Sodium: 140 Potassium: 3.9 Chloride: 103 Calcium: 8.3 Corrected Calcium: 8.22 Magnesium: 2.1 CO2: 32 SCr: 0.8 Glucose: 93 Albumin: 4.1 AST: 24 (02/21) ALT: 32 (02/21) TPN FORMULA: TPN TYPE: Central Continuous AMINO ACIDS: 70 gm DEXTROSE: 250 gm LIPIDS: 30 gm SODIUM CHLORIDE: 100 mEq SODIUM ACETATE: - mEq SODIUM PHOSPHATE: - mmol POTASSIUM CHLORIDE: 80 mEq POTASSIUM ACETATE: - mEq POTASSIUM PHOSPHATE: 16 mmol MAGNESIUM: 15 mEq CALCIUM: 12 mEq INSULIN: units MULTIPLE VITAMIN: 10 ml TRACE ELEMENTS: 1ml ml(s) TPN PLAN: no change in tpn R: Continue TPN AT 63ML/HR Will monitor electrolytes, glucose, and tolerance to TPN. IWONA HAMM [facility], 03/04/19 [id number]
[2019-03-04 15:00] VITALS: BP 134/81
[2019-03-04 19:00] VITALS: BP 133/79
[2019-03-04] MEDS ORDERED: AMINO ACID IV SCH ×10 (22:00)
[2019-03-04] MEDS ORDERED: TOTAL PARENTERAL NUTRITION IV SCH ×10 (22:00)
[2019-03-04] MEDS ORDERED: DEXTROSE 70% IV SCH ×10 (22:00)
[2019-03-04] MEDS ORDERED: [UNRECOGNIZED DRUG - OTHER] IV SCH ×10 (22:00)
[2019-03-04 23:00] VITALS: BP 155/88
[2019-03-05] MEDS: HYDROmorphone 2 MG/ML VIAL IV PRN ×8 (01:18→23:29)
[2019-03-05 03:00] VITALS: BP 125/55
[2019-03-05] MEDS: diphenhydrAMINE 50 MG/ML VIAL IVP PRN ×4 (04:24→23:27)
[2019-03-05] MEDS: ONDANSETRON PF 4 MG/2 ML VIAL. IV PRN ×2 (04:24→13:57)
[2019-03-05] MEDS: PANTOPRAZOLE IV PUSH 40 MG VIAL. IVP SCH (05:32)
[2019-03-05 06:09] LABS: BASO % 0 % (0-3); EOS # 0.1 x10^3/uL (0.0-0.7); EOS % 1 % (0-3); HEMATOCRIT 34.8 % (36.0-47.0); HEMOGLOBIN 11.6 g/dL (12.0-15.5); LYMPH # 2.2 x10^3/uL (1.0-4.8); LYMPH % 23 % (24-48); MEAN CORPUSCULAR HEMOGLOBIN 32 pg (25-35); MEAN CORPUSCULAR HGB CONC 33 g/dL (31-37); MEAN CORPUSCULAR VOLUME 96 fL (79-100); MONO # 0.9 x10^3/uL (0.0-1.1); MONO % 9 % (0-9); NEUT # 6.6 x10^3uL (1.8-7.7); NEUT % 67 % (31-73); PLATELET COUNT 209 x10^3/uL (140-400); RED BLOOD COUNT 3.64 x10^6/uL (3.50-5.40); RED CELL DISTRIBUTION WIDTH 13.4 % (11.5-14.5); WHITE BLOOD COUNT 9.9 x10^3/uL (4.0-11.0)
[2019-03-05 06:13] LABS: CALCIUM 8.1 mg/dL (8.5-10.1); CREATININE 0.8 mg/dL (0.6-1.0); GFR 79.9; POTASSIUM 3.9 mmol/L (3.5-5.1)
[2019-03-05 07:00] VITALS: BP 132/87
[2019-03-05] MEDS: methylPREDNISolone SOD SUCC PF 40 MG/ML VIAL. IV SCH (08:11)
[2019-03-05] MEDS: FUROSEMIDE 20 MG/2 ML VIAL. IVP PRN (08:11)
--- NOTE | 2019-03-05 09:14 | NUR ---
SW following for discharge planning. Discussed with RN, pt is from home, still has NG tube and TPN. RN advised pt not ready to discharge home today. SW will continue to follow.
--- NOTE | 2019-03-05 09:42 | PDOC ---
KERRIE VARELA PER DIEM NURSE 03/05/19 0942: SURGICAL PROGRESS NOTE Subjective still not much ileostomy output has left NG clamped since yesterday Vital Signs Vital Signs Date Time Temp Pulse Resp B/P (MAP) Pulse Ox O2 Delivery O2 Flow Rate FiO2 03/05/19 08:11 Room Air 03/05/19 07:00 97.8 79 18 132/87 (102) 99 97.8 I&O Intake and Output 03/05/19 07:00 Output Total 100 ml Balance -100 ml Gastric Drainage Total 100 ml # Voids 4 General: Alert, Oriented X3, Cooperative, No acute distress HEENT: Other (ng clamped ) Abdomen: Soft Labs Laboratory Tests Test 03/04/19 06:30 03/05/19 05:55 White Blood Count 9.6 x10^3/uL (4.0-11.0) 9.9 x10^3/uL (4.0-11.0) Red Blood Count 3.69 x10^6/uL (3.50-5.40) 3.64 x10^6/uL (3.50-5.40) Hemoglobin 11.5 g/dL (12.0-15.5) 11.6 g/dL (12.0-15.5) Hematocrit 35.3 % (36.0-47.0) 34.8 % (36.0-47.0) Mean Corpuscular Volume 96 fL (79-100) 96 fL (79-100) Mean Corpuscular Hemoglobin 31 pg (25-35) 32 pg (25-35) Mean Corpuscular Hemoglobin Concent 33 g/dL (31-37) 33 g/dL (31-37) Red Cell Distribution Width 13.3 % (11.5-14.5) 13.4 % (11.5-14.5) Platelet Count 226 x10^3/uL (140-400) 209 x10^3/uL (140-400) Neutrophils (%) (Auto) 67 % (31-73) 67 % (31-73) Lymphocytes (%) (Auto) 22 % (24-48) 23 % (24-48) Monocytes (%) (Auto) 10 % (0-9) 9 % (0-9) Eosinophils (%) (Auto) 1 % (0-3) 1 % (0-3) Basophils (%) (Auto) 0 % (0-3) 0 % (0-3) Neutrophils # (Auto) 6.5 x10^3uL (1.8-7.7) 6.6 x10^3uL (1.8-7.7) Lymphocytes # (Auto) 2.1 x10^3/uL (1.0-4.8) 2.2 x10^3/uL (1.0-4.8) Monocytes # (Auto) 0.9 x10^3/uL (0.0-1.1) 0.9 x10^3/uL (0.0-1.1) Eosinophils # (Auto) 0.1 x10^3/uL (0.0-0.7) 0.1 x10^3/uL (0.0-0.7) Basophils # (Auto) 0.0 x10^3/uL (0.0-0.2) 0.0 x10^3/uL (0.0-0.2) Sodium Level 140 mmol/L (136-145) 141 mmol/L (136-145) Potassium Level 3.9 mmol/L (3.5-5.1) 3.9 mmol/L (3.5-5.1) Chloride Level 103 mmol/L (98-107) 106 mmol/L (98-107) Carbon Dioxide Level 32 mmol/L (21-32) 32 mmol/L (21-32) Anion Gap 5 (6-14) 3 (6-14) Blood Urea Nitrogen 13 mg/dL (7-20) 12 mg/dL (7-20) Creatinine 0.8 mg/dL (0.6-1.0) 0.8 mg/dL (0.6-1.0) Estimated GFR (Cockcroft-Gault) 79.9 79.9 Glucose Level 93 mg/dL (70-99) 82 mg/dL (70-99) Calcium Level 8.3 mg/dL (8.5-10.1) 8.1 mg/dL (8.5-10.1) Phosphorus Level 3.3 mg/dL (2.6-4.7) Magnesium Level 2.1 mg/dL (1.8-2.4) Laboratory Tests Test 4/23/19 05:55 White Blood Count 9.9 x10^3/uL (4.0-11.0) Red Blood Count 3.64 x10^6/uL (3.50-5.40) Hemoglobin 11.6 g/dL (12.0-15.5) Hematocrit 34.8 % (36.0-47.0) Mean Corpuscular Volume 96 fL (79-100) Mean Corpuscular Hemoglobin 32 pg (25-35) Mean Corpuscular Hemoglobin Concent 33 g/dL (31-37) Red Cell Distribution Width 13.4 % (11.5-14.5) Platelet Count 209 x10^3/uL (140-400) Neutrophils (%) (Auto) 67 % (31-73) Lymphocytes (%) (Auto) 23 % (24-48) Monocytes (%) (Auto) 9 % (0-9) Eosinophils (%) (Auto) 1 % (0-3) Basophils (%) (Auto) 0 % (0-3) Neutrophils # (Auto) 6.6 x10^3uL (1.8-7.7) Lymphocytes # (Auto) 2.2 x10^3/uL (1.0-4.8) Monocytes # (Auto) 0.9 x10^3/uL (0.0-1.1) Eosinophils # (Auto) 0.1 x10^3/uL (0.0-0.7) Basophils # (Auto) 0.0 x10^3/uL (0.0-0.2) Sodium Level 141 mmol/L (136-145) Potassium Level 3.9 mmol/L (3.5-5.1) Chloride Level 106 mmol/L (98-107) Carbon Dioxide Level 32 mmol/L (21-32) Anion Gap 3 (6-14) Blood Urea Nitrogen 12 mg/dL (7-20) Creatinine 0.8 mg/dL (0.6-1.0) Estimated GFR (Cockcroft-Gault) 79.9 Glucose Level 82 mg/dL (70-99) Calcium Level 8.1 mg/dL (8.5-10.1) Problem List Problems Medical Problems: (1) Partial small bowel obstruction Status: Acute Assessment/Plan no surgical plans Defer NG removal and diet advancement to GI available as needed OPAL MAI MD 03/05/19 1123: SURGICAL PROGRESS NOTE Assessment/Plan Patient appears to be more comfortable. Has had NGT clamped since yesterday without vomiting. She states she has had little out the ostomy, there is bilious stool at the ostomy. No surgical plans at this time. Agree with Siddhartha's assessment and plan. KERRIE VARELA APRN Mar 05, 2019 09:42 OPAL MAI MD Mar 05, 2019 11:23
[2019-03-05 11:00] VITALS: BP 149/96
--- NOTE | 2019-03-05 11:45 | PDOC ---
PROGRESS NOTES Chief Complaint Chief Complaint Abdominal pain History of Present Illness History of Present Illness Patient was resting in bed today. She states she is not passing gas and still has limited output from her ostomy (50-100cc per day). She did not suction her NG tube yesterday but she did have some dry heaving. She complains of abdominal distension. She states she misses her family. She still has some edema in her LE and some bruising on the backs of her LEs. Vitals Vitals Vital Signs Date Time Temp Pulse Resp B/P (MAP) Pulse Ox O2 Delivery O2 Flow Rate FiO2 03/05/19 11:07 Room Air 03/05/19 07:00 97.8 79 18 132/87 (102) 99 97.8 Physical Exam General: Alert, Oriented X3, Cooperative, No acute distress Heart: Regular rate, Normal S1, Normal S2, No murmurs Lungs: Clear (No wheezes, rales, or rhonchi) Abdomen: Soft, No masses, Other (Mild tenderness) Extremities: Normal pulses, No tenderness/swelling, Other (Mild edema and bruising in her LEs) Skin: No rashes, No breakdown, No significant lesion Labs LABS Laboratory Tests Test 03/05/19 05:55 White Blood Count 9.9 x10^3/uL (4.0-11.0) Red Blood Count 3.64 x10^6/uL (3.50-5.40) Hemoglobin 11.6 g/dL (12.0-15.5) Hematocrit 34.8 % (36.0-47.0) Mean Corpuscular Volume 96 fL (79-100) Mean Corpuscular Hemoglobin 32 pg (25-35) Mean Corpuscular Hemoglobin Concent 33 g/dL (31-37) Red Cell Distribution Width 13.4 % (11.5-14.5) Platelet Count 209 x10^3/uL (140-400) Neutrophils (%) (Auto) 67 % (31-73) Lymphocytes (%) (Auto) 23 % (24-48) Monocytes (%) (Auto) 9 % (0-9) Eosinophils (%) (Auto) 1 % (0-3) Basophils (%) (Auto) 0 % (0-3) Neutrophils # (Auto) 6.6 x10^3uL (1.8-7.7) Lymphocytes # (Auto) 2.2 x10^3/uL (1.0-4.8) Monocytes # (Auto) 0.9 x10^3/uL (0.0-1.1) Eosinophils # (Auto) 0.1 x10^3/uL (0.0-0.7) Basophils # (Auto) 0.0 x10^3/uL (0.0-0.2) Sodium Level 141 mmol/L (136-145) Potassium Level 3.9 mmol/L (3.5-5.1) Chloride Level 106 mmol/L (98-107) Carbon Dioxide Level 32 mmol/L (21-32) Anion Gap 3 (6-14) Blood Urea Nitrogen 12 mg/dL (7-20) Creatinine 0.8 mg/dL (0.6-1.0) Estimated GFR (Cockcroft-Gault) 79.9 Glucose Level 82 mg/dL (70-99) Calcium Level 8.1 mg/dL (8.5-10.1) Review of Systems Review of Systems Patient complains of nausea and dry heaving. Edema and bruising of her lower extremities. She denies fevers, chills, vomiting, CP, SOB. Assessment and Plan Assessmemt and Plan Problems Medical Problems: (1) Partial small bowel obstruction Status: Acute Assessment: H/o Crohn's, multiple abd surgeries ( at least 20 x ex lap - mid umbilical scar) Indwelling left sided colostomy N/v, abd pain, decreased ostomy output, weight loss Chronic pain LE swelling Hypokalemia Plan: NG suctioning PRN, hope to remove NG tube soon TPN Try PO meds per GI Dilaudid for pain management Levofloxacin Solu-medrol and benadryl Lasix GI consult General surgery consult F/u labs Continue home meds PT/OT Ambulation for DVT prophylaxis Comment Review of Relevant I have reviewed the following items kathy (where applicable) has been applied. Labs Laboratory Tests Test 03/04/19 06:30 03/05/19 05:55 White Blood Count 9.6 x10^3/uL (4.0-11.0) 9.9 x10^3/uL (4.0-11.0) Red Blood Count 3.69 x10^6/uL (3.50-5.40) 3.64 x10^6/uL (3.50-5.40) Hemoglobin 11.5 g/dL (12.0-15.5) 11.6 g/dL (12.0-15.5) Hematocrit 35.3 % (36.0-47.0) 34.8 % (36.0-47.0) Mean Corpuscular Volume 96 fL (79-100) 96 fL (79-100) Mean Corpuscular Hemoglobin 31 pg (25-35) 32 pg (25-35) Mean Corpuscular Hemoglobin Concent 33 g/dL (31-37) 33 g/dL (31-37) Red Cell Distribution Width 13.3 % (11.5-14.5) 13.4 % (11.5-14.5) Platelet Count 226 x10^3/uL (140-400) 209 x10^3/uL (140-400) Neutrophils (%) (Auto) 67 % (31-73) 67 % (31-73) Lymphocytes (%) (Auto) 22 % (24-48) 23 % (24-48) Monocytes (%) (Auto) 10 % (0-9) 9 % (0-9) Eosinophils (%) (Auto) 1 % (0-3) 1 % (0-3) Basophils (%) (Auto) 0 % (0-3) 0 % (0-3) Neutrophils # (Auto) 6.5 x10^3uL (1.8-7.7) 6.6 x10^3uL (1.8-7.7) Lymphocytes # (Auto) 2.1 x10^3/uL (1.0-4.8) 2.2 x10^3/uL (1.0-4.8) Monocytes # (Auto) 0.9 x10^3/uL (0.0-1.1) 0.9 x10^3/uL (0.0-1.1) Eosinophils # (Auto) 0.1 x10^3/uL (0.0-0.7) 0.1 x10^3/uL (0.0-0.7) Basophils # (Auto) 0.0 x10^3/uL (0.0-0.2) 0.0 x10^3/uL (0.0-0.2) Sodium Level 140 mmol/L (136-145) 141 mmol/L (136-145) Potassium Level 3.9 mmol/L (3.5-5.1) 3.9 mmol/L (3.5-5.1) Chloride Level 103 mmol/L (98-107) 106 mmol/L (98-107) Carbon Dioxide Level 32 mmol/L (21-32) 32 mmol/L (21-32) Anion Gap 5 (6-14) 3 (6-14) Blood Urea Nitrogen 13 mg/dL (7-20) 12 mg/dL (7-20) Creatinine 0.8 mg/dL (0.6-1.0) 0.8 mg/dL (0.6-1.0) Estimated GFR (Cockcroft-Gault) 79.9 79.9 Glucose Level 93 mg/dL (70-99) 82 mg/dL (70-99) Calcium Level 8.3 mg/dL (8.5-10.1) 8.1 mg/dL (8.5-10.1) Phosphorus Level 3.3 mg/dL (2.6-4.7) Magnesium Level 2.1 mg/dL (1.8-2.4) Laboratory Tests Test 03/05/19 05:55 White Blood Count 9.9 x10^3/uL (4.0-11.0) Red Blood Count 3.64 x10^6/uL (3.50-5.40) Hemoglobin 11.6 g/dL (12.0-15.5) Hematocrit 34.8 % (36.0-47.0) Mean Corpuscular Volume 96 fL (79-100) Mean Corpuscular Hemoglobin 32 pg (25-35) Mean Corpuscular Hemoglobin Concent 33 g/dL (31-37) Red Cell Distribution Width 13.4 % (11.5-14.5) Platelet Count 209 x10^3/uL (140-400) Neutrophils (%) (Auto) 67 % (31-73) Lymphocytes (%) (Auto) 23 % (24-48) Monocytes (%) (Auto) 9 % (0-9) Eosinophils (%) (Auto) 1 % (0-3) Basophils (%) (Auto) 0 % (0-3) Neutrophils # (Auto) 6.6 x10^3uL (1.8-7.7) Lymphocytes # (Auto) 2.2 x10^3/uL (1.0-4.8) Monocytes # (Auto) 0.9 x10^3/uL (0.0-1.1) Eosinophils # (Auto) 0.1 x10^3/uL (0.0-0.7) Basophils # (Auto) 0.0 x10^3/uL (0.0-0.2) Sodium Level 141 mmol/L (136-145) Potassium Level 3.9 mmol/L (3.5-5.1) Chloride Level 106 mmol/L (98-107) Carbon Dioxide Level 32 mmol/L (21-32) Anion Gap 3 (6-14) Blood Urea Nitrogen 12 mg/dL (7-20) Creatinine 0.8 mg/dL (0.6-1.0) Estimated GFR (Cockcroft-Gault) 79.9 Glucose Level 82 mg/dL (70-99) Calcium Level 8.1 mg/dL (8.5-10.1) Medications Current Medications Hydromorphone HCl (Dilaudid) 0.5 mg 1X ONCE IV Last administered on 02/21/19at 22:47; Start 02/21/19 at 22:30; Stop 02/21/19 at 22:31; Status DC Ondansetron HCl (Zofran) 4 mg 1X ONCE IV Last administered on 02/21/19at 22:46; Start 02/21/19 at 22:30; Stop 02/21/19 at 22:31; Status DC Sodium Chloride (NORMAL SALINE FLUSH for STERILE FIELD) 10 ml KROGNI ONCE .ROUTE ; Start 02/21/19 at 22:22; Stop 02/21/19 at 22:23; Status DC Hydromorphone HCl (Dilaudid) 0.5 mg 1X ONCE IV Last administered on 02/22/19at 00:12; Start 02/22/19 at 00:00; Stop 02/22/19 at 00:01; Status DC Ondansetron HCl (Zofran) 4 mg 1X ONCE IV Last administered on 02/22/19at 00:12; Start 02/22/19 at 00:00; Stop 02/22/19 at 00:01; Status DC Ondansetron HCl (Zofran) 4 mg PRN Q8HRS PRN IV NAUSEA/VOMITING 1ST CHOICE Last administered on 02/22/19at 04:20; Start 02/22/19 at 00:00; Stop 02/22/19 at 09:33; Status DC Morphine Sulfate (Morphine Sulfate) 4 mg PRN Q2HR PRN IV SEVERE PAIN; Start 02/22/19 at 00:00; Stop 02/22/19 at 04:50; Status DC Benzocaine (Hurricaine One) 1 spray 1X ONCE MM Last administered on 02/22/19at 00:12; Start 02/22/19 at 00:30; Stop 02/22/19 at 00:31; Status DC Hydromorphone HCl (Dilaudid) 1.5 mg PRN Q6HRS PRN IV SEVERE PAIN Last administered on 02/22/19at 08:11; Start 02/22/19 at 01:30; Stop 02/22/19 at 12:21 ; Status DC Sodium Chloride 1,000 ml @ 125 mls/hr Q8H IV Last administered on 02/22/19at 06:03; Start 02/22/19 at 06:00; Stop 02/22/19 at 09:33; Status DC Hydromorphone HCl (Dilaudid) 1 mg 1X ONCE IV Last administered on 02/22/19at 06:02; Start 02/22/19 at 06:00; Stop 02/22/19 at 06:01; Status DC Ondansetron HCl (Zofran) 4 mg PRN Q6HRS PRN IV NAUSEA/VOMITING 1ST CHOICE Last administered on 03/05/19at 04:24; Start 02/22/19 at 09:45 Diphenhydramine HCl (Benadryl) 25 mg PRN QHS PRN IVP sleep Last administered on 02/22/19at 12:45; Start 02/22/19 at 09:45; Stop 02/22/19 at 18:41; Status DC Potassium Chloride/Dextrose/ Sod Cl 1,000 ml @ 100 mls/hr 1X ONCE IV Last administered on 02/22/19at 10:51; Start 02/22/19 at 10:30; Stop 02/22/19 at 20:29; Status DC Pantoprazole Sodium (PROTONIX VIAL for IV PUSH) 40 mg DAILYAC IVP Last administered on 03/05/19 05:32; Start 02/22/19 at 11:30 Methylprednisolone Sodium Succinate (SOLU-Medrol 40MG VIAL) 20 mg Q12HR IV Last administered on 02/26/19 10:10; Start 02/22/19 at 12:00; Stop 02/26/19 at 12:28; Status DC Hydromorphone HCl (Dilaudid) 1.5 mg PRN Q4HRS PRN IV SEVERE PAIN Last administered on 02/23/19 21:12; Start 02/22/19 at 12:30; Stop 02/23/19 at 22:58; Status DC Diphenhydramine HCl (Benadryl) 25 mg PRN Q6HRS PRN IVP ITCHING Last administered on 03/05/19 11:08; Start 02/22/19 at 12:45 Sodium Chloride 1,000 ml @ 100 mls/hr Q10H IV Last administered on 02/24/19 14:22; Start 02/22/19 at 22:00; Stop 02/25/19 at 10:25; Status DC Levofloxacin/ Dextrose 100 ml @ 100 mls/hr Q24H IV Last administered on 03/04/19 21:19; Start 02/23/19 at 21:00 Hydromorphone HCl (Dilaudid) 2 mg PRN Q3HRS PRN IV SEVERE PAIN Last administered on 03/05/19 11:07; Start 02/23/19 at 22:55 Info (Tpn Per Pharmacy) 1 each PRN DAILY PRN MC SEE COMMENTS Last administered on 03/04/19at 13:42; Start 02/24/19 at 08:15 Cyanocobalamin (Vitamin B-12) 1,000 mcg 1X STAT IM Last administered on 02/24/19 12:06; Start 02/24/19 at 10:05; Stop 02/24/19 at 10:08; Status DC Sodium Chloride 90 meq/Potassium Chloride 50 meq/ Potassium Phosphate 16 mmol/ Magnesium Sulfate 10 meq/Calcium Gluconate 10 meq/ Multivitamins 10 ml/Chromium/ Copper/Manganese/ Seleni/Zn 1 ml/ Total Parenteral Nutrition/Amino Acids/Dextrose/ Fat Emulsion Intravenous 1,512 ml @ 63 mls/hr TPN CONT IV Last administered on 02/24/19at 22:25; Start 02/24/19 at 22:00; Stop 02/26/19 at 00:37; Status DC Diphenhydramine HCl (Benadryl) 50 mg 1X ONCE IVP Last administered on 02/25/19at 02:16; Start 02/25/19 at 02:00; Stop 02/25/19 at 02:01; Status DC Sodium Chloride 90 meq/Potassium Chloride 50 meq/ Potassium Phosphate 16 mmol/ Magnesium Sulfate 15 meq/Calcium Gluconate 10 meq/ Multivitamins 10 ml/Chromium/ Copper/Manganese/ Seleni/Zn 1 ml/ Total Parenteral Nutrition/Amino Acids/Dextrose/ Fat Emulsion Intravenous 1,512 ml @ 63 mls/hr TPN CONT IV ; Start 02/25/19 at 22:00; Stop 02/26/19 at 21:59; Status DC Iohexol (Omnipaque 300 Mg/ml) 400 ml 1X ONCE PO ; Start 02/26/19 at 08:15; Stop 02/26/19 at 08:16; Status UNV Methylprednisolone Sodium Succinate (SOLU-Medrol 40MG VIAL) 20 mg DAILY IV Last administered on 03/05/19at 08:11; Start 02/27/19 at 09:00 Sodium Chloride 90 meq/Potassium Chloride 50 meq/ Potassium Phosphate 16 mmol/ Magnesium Sulfate 15 meq/Calcium Gluconate 10 meq/ Multivitamins 10 ml/Chromium/ Copper/Manganese/ Seleni/Zn 1 ml/ Total Parenteral Nutrition/Amino Acids/Dextrose/ Fat Emulsion Intravenous 1,512 ml @ 63 mls/hr TPN CONT IV Last administered on 02/26/19at 22:38; Start 02/26/19 at 22:00; Stop 02/27/19 at 21:59; Status DC Furosemide (Lasix) 10 mg DAILY IVP Last administered on 02/27/19at 08:36; Start 02/26/19 at 16:00; Stop 02/27/19 at 10:26; Status DC Iohexol (Omnipaque 300 Mg/ml) 400 ml 1X ONCE PO Last administered on 02/27/19at 10:00; Start 02/27/19 at 08:45; Stop 02/27/19 at 09:01; Status DC Sodium Chloride 90 meq/Potassium Chloride 50 meq/ Potassium Phosphate 16 mmol/ Magnesium Sulfate 15 meq/Calcium Gluconate 10 meq/ Multivitamins 10 ml/Chromium/ Copper/Manganese/ Seleni/Zn 1 ml/ Total Parenteral Nutrition/Amino Acids/Dextrose/ Fat Emulsion Intravenous 1,512 ml @ 63 mls/hr TPN CONT IV Last administered on 02/27/19at 22:59; Start 02/27/19 at 22:00; Stop 02/28/19 at 21:59; Status DC Iohexol (Omnipaque 300 Mg/ml) 400 ml 1X ONCE PO Last administered on 02/28/19at 09:45; Start 02/28/19 at 09:45; Stop 02/28/19 at 09:46; Status DC Potassium Chloride/Water 100 ml @ 100 mls/hr Q1H IV Last administered on 02/28/19at 14:34; Start 02/28/19 at 11:00; Stop 02/28/19 at 12:59; Status DC Sodium Chloride 90 meq/Potassium Chloride 60 meq/ Potassium Phosphate 16 mmol/ Magnesium Sulfate 15 meq/Calcium Gluconate 10 meq/ Multivitamins 10 ml/Chromium/ Copper/Manganese/ Seleni/Zn 1 ml/ Total Parenteral Nutrition/Amino Acids/Dextrose/ Fat Emulsion Intravenous 1,512 ml @ 63 mls/hr TPN CONT IV Last administered on 02/28/19at 22:10; Start 02/28/19 at 22:00; Stop 03/01/19 at 21:59; Status DC Furosemide (Lasix) 10 mg 1X ONCE IVP Last administered on 02/28/19at 15:15; Start 02/28/19 at 15:15; Stop 02/28/19 at 15:16; Status DC Furosemide (Lasix) 20 mg PRN DAILY PRN IVP lower extremity edema; Start 02/28/19 at 15:15; Stop 02/28/19 at 15:15; Status DC Furosemide (Lasix) 10 mg PRN DAILY PRN IVP lower extremity edema Last administered on 03/05/19at 08:11; Start 02/28/19 at 15:15 Sodium Chloride 90 meq/Potassium Chloride 60 meq/ Potassium Phosphate 16 mmol/ Magnesium Sulfate 15 meq/Calcium Gluconate 10 meq/ Multivitamins 10 ml/Chromium/ Copper/Manganese/ Seleni/Zn 1 ml/ Total Parenteral Nutrition/Amino Acids/Dextrose/ Fat Emulsion Intravenous 1,512 ml @ 63 mls/hr TPN CONT IV Last administered on 03/01/19at 22:28; Start 03/01/19 at 22:00; Stop 03/02/19 at 21:59; Status DC Sodium Chloride 110 meq/Potassium Chloride 60 meq/ Potassium Phosphate 16 mmol/ Magnesium Sulfate 15 meq/Calcium Gluconate 10 meq/ Multivitamins 10 ml/Chromium/ Copper/Manganese/ Seleni/Zn 1 ml/ Total Parenteral Nutrition/Amino Acids/Dextrose/ Fat Emulsion Intravenous 1,512 ml @ 63 mls/hr TPN CONT IV Last administered on 03/02/19at 22:39; Start 03/02/19 at 22:00; Stop 03/03/19 at 21:59; Status DC Sodium Chloride 100 meq/Potassium Chloride 80 meq/ Potassium Phosphate 16 mmol/ Magnesium Sulfate 15 meq/Calcium Gluconate 12 meq/ Multivitamins 10 ml/Chromium/ Copper/Manganese/ Seleni/Zn 1 ml/ Total Parenteral Nutrition/Amino Acids/Dextrose/ Fat Emulsion Intravenous 1,512 ml @ 63 mls/hr TPN CONT IV Last administered on 03/03/19at 23:28; Start 03/03/19 at 22:00; Stop 03/04/19 at 21:59; Status DC Potassium Chloride/Water 50 ml @ 50 mls/hr Q1H IV Last administered on 03/03/19 at 17:00; Start 03/03/19 at 13:30; Stop 03/03/19 at 15:29; Status DC Sodium Chloride 100 meq/Potassium Chloride 80 meq/ Potassium Phosphate 16 mmol/ Magnesium Sulfate 15 meq/Calcium Gluconate 12 meq/ Multivitamins 10 ml/Chromium/ Copper/Manganese/ Seleni/Zn 1 ml/ Total Parenteral Nutrition/Amino Acids/Dextrose/ Fat Emulsion Intravenous 1,512 ml @ 63 mls/hr TPN CONT IV Last administered on 03/04/19at 22:19; Start 03/04/19 at 22:00; Stop 03/05/19 at 21:59 Active Scripts Active Reported [dilaudid liquid] 1.5 Mg PO PRN Q8HRS PRN [ferous sulfate] Mg PO DAILY [vitamin B12 inject.] MONTHLY Vitamin D3 (Cholecalciferol (Vitamin D3)) 5,000 Unit Tablet 5,000 Unit PO WEEKLY Tablet (Pnv Cmb#95/Ferrous Fumarate/Fa) 1 Each Tablet 1 Tab PO DAILY Benadryl (Diphenhydramine Hcl) 25 Mg Capsule 25 Mg PO PRN Q4-6HRS PRN Zofran Odt (Ondansetron) 4 Mg Tab.rapdis 4 Mg PO BID PRN Biotin 10,000 Mcg Tab.rapdis 10,000 Mcg PO DAILY Simethicone 125 Mg Capsule 125 Mg PO PRN DAILY PRN Pantoprazole Sodium 40 Mg Tablet.dr 40 Mg PO DAILY Clonazepam 1 Mg Tablet 1 Tab PO PRN BID PRN Vitals/I & O Vital Sign - Last 24 Hours 03/04/19 03/04/19 03/04/19 03/04/19 12:42 15:00 15:43 18:54 Temp 98.0 98.0 Pulse 91 Resp 16 B/P (MAP) 134/81 (98) Pulse Ox 98 98 O2 Delivery Room Air Room Air Room Air Room Air 03/04/19 03/04/19 03/04/19 03/04/19 19:00 20:00 22:18 23:00 Temp 97.5 98.9 97.5 98.9 Pulse 86 95 Resp 16 18 B/P (MAP) 133/79 (97) 155/88 (110) Pulse Ox 95 95 96 O2 Delivery Room Air Room Air Room Air Room Air 03/05/19 03/05/19 03/05/19 03/05/19 01:18 03:00 04:23 04:53 Temp 97.8 97.8 Pulse 76 Resp 16 B/P (MAP) 125/55 (78) Pulse Ox 96 97 97 97 O2 Delivery Room Air Room Air Room Air 03/05/19 03/05/19 03/05/19 03/05/19 07:00 07:55 08:11 09:00 Temp 97.8 97.8 Pulse 79 Resp 18 B/P (MAP) 132/87 (102) Pulse Ox 99 O2 Delivery Room Air Room Air Room Air Room Air 03/05/19 11:07 O2 Delivery Room Air Intake and Output 03/04/19 03/04/19 03/05/19 15:00 23:00 07:00 Output Total 100 ml Balance -100 ml ALEJANDRO PRINCE III DO Mar 05, 2019 11:45
--- NOTE | 2019-03-05 11:49 | PDOC ---
Subjective: Subjective: Tearful, not any better "and I know it isn't going to get better." Minimal ostomy output. Wants off steroids. Didn't use NG yesterday and had some retching and "it didn't feel great." Discussed removing NG. She says she knows her body and doesn't think that's a good idea but also "doesn't want to upset the doctors." Has questions about hernia - will it get bigger, are these symptoms that she'll deal with forever, doesn't want surgery, etc. Objective: Vital Signs: Vital Signs Date Time Temp Pulse Resp B/P (MAP) Pulse Ox O2 Delivery O2 Flow Rate FiO2 03/05/19 11:07 Room Air 03/05/19 11:00 98.5 102 18 149/96 (113) 97 98.5 Labs: Laboratory Tests Test 03/05/19 05:55 White Blood Count 9.9 x10^3/uL Red Blood Count 3.64 x10^6/uL Hemoglobin 11.6 g/dL Hematocrit 34.8 % Mean Corpuscular Volume 96 fL Mean Corpuscular Hemoglobin 32 pg Mean Corpuscular Hemoglobin Concent 33 g/dL Red Cell Distribution Width 13.4 % Platelet Count 209 x10^3/uL Neutrophils (%) (Auto) 67 % Lymphocytes (%) (Auto) 23 % Monocytes (%) (Auto) 9 % Eosinophils (%) (Auto) 1 % Basophils (%) (Auto) 0 % Neutrophils # (Auto) 6.6 x10^3uL Lymphocytes # (Auto) 2.2 x10^3/uL Monocytes # (Auto) 0.9 x10^3/uL Eosinophils # (Auto) 0.1 x10^3/uL Basophils # (Auto) 0.0 x10^3/uL Sodium Level 141 mmol/L Potassium Level 3.9 mmol/L Chloride Level 106 mmol/L Carbon Dioxide Level 32 mmol/L Anion Gap 3 Blood Urea Nitrogen 12 mg/dL Creatinine 0.8 mg/dL Estimated GFR (Cockcroft-Gault) 79.9 Glucose Level 82 mg/dL Calcium Level 8.1 mg/dL PE: GEN: NAD LUNGS: CTAB HEART: RRR ABD: minimal ostomy output, tender, BS+ NEURO/PSYCH: A & O 3, tearful A/P: H/o Crohn's, multiple abd surgeries, chronic pain w/ intermittent obstructive symptoms -- Will change to PO meds and cautiously try some clears - she prefers to leave NGT in place for now but will consider removal tomorrow pending trial of liquids. Remains on Levaquin - not sure why - defer to primary. MARIA EUGENIA MO Mar 05, 2019 11:49
[2019-03-05] MEDS: TPN PER PHARMACY MC PRN (13:35)
--- NOTE | 2019-03-05 13:36 | NUR ---
Pharmacy TPN Dosing Note S: MATTHEW HOLGUIN is a 39 year old F Currently receiving Central Continuous TPN started 02/24/19 B:Pertinent PMH: Partial SBO. No oral intake for long period of time. Height: 5 feet, 7 inches Weight: 71.315890 kg Current diet: NPO LABS: Sodium: 141 Potassium: 3.9 Chloride: 106 Calcium: 8.1 Corrected Calcium: 8.02 Magnesium: 2.1 CO2: 32 SCr: 0.8 Glucose: 82 Albumin: 4.1 AST: 24 (02/21) ALT: 32 (02/21) TPN FORMULA: TPN TYPE: Central Continuous AMINO ACIDS: 70 gm DEXTROSE: 250 gm LIPIDS: 30 gm SODIUM CHLORIDE: 100 mEq SODIUM ACETATE: - mEq SODIUM PHOSPHATE: - mmol POTASSIUM CHLORIDE: 80 mEq POTASSIUM ACETATE: - mEq POTASSIUM PHOSPHATE: 16 mmol MAGNESIUM: 15 mEq CALCIUM: 12 mEq INSULIN: units MULTIPLE VITAMIN: 10 ml TRACE ELEMENTS: 1ml ml(s) TPN PLAN: no change in tpn R: Continue TPN as written above. Will monitor electrolytes, glucose, and tolerance to TPN. CALI RAMACHANDRAN [facility], 03/05/19 [id number]
[2019-03-05 15:00] VITALS: BP 146/93
[2019-03-05 19:15] VITALS: BP 125/83
[2019-03-05] MEDS ORDERED: TOTAL PARENTERAL NUTRITION IV SCH ×10 (22:00)
[2019-03-05] MEDS ORDERED: [UNRECOGNIZED DRUG - OTHER] IV SCH ×10 (22:00)
[2019-03-05] MEDS ORDERED: DEXTROSE 70% IV SCH ×10 (22:00)
[2019-03-05] MEDS ORDERED: AMINO ACID IV SCH ×10 (22:00)
[2019-03-05 23:05] VITALS: BP 133/85
[2019-03-06] MEDS: ONDANSETRON PF 4 MG/2 ML VIAL. IV PRN ×4 (02:44→18:10)
[2019-03-06] MEDS: HYDROmorphone 2 MG/ML VIAL IV PRN ×7 (02:48→21:17)
[2019-03-06 03:15] VITALS: BP 139/87
[2019-03-06] MEDS: diphenhydrAMINE 50 MG/ML VIAL IVP PRN ×3 (06:11→18:11)
[2019-03-06 06:59] LABS: CALCIUM 8.2 mg/dL (8.5-10.1); CREATININE 0.8 mg/dL (0.6-1.0); GFR 79.9; POTASSIUM 3.6 mmol/L (3.5-5.1)
[2019-03-06 07:00] VITALS: BP 139/89
[2019-03-06 07:25] LABS: BASO % 0 % (0-3); EOS # 0.1 x10^3/uL (0.0-0.7); EOS % 1 % (0-3); HEMATOCRIT 35.9 % (36.0-47.0); HEMOGLOBIN 11.9 g/dL (12.0-15.5); LYMPH # 2.6 x10^3/uL (1.0-4.8); LYMPH % 24 % (24-48); MEAN CORPUSCULAR HEMOGLOBIN 32 pg (25-35); MEAN CORPUSCULAR HGB CONC 33 g/dL (31-37); MEAN CORPUSCULAR VOLUME 95 fL (79-100); MONO # 0.9 x10^3/uL (0.0-1.1); MONO % 8 % (0-9); NEUT # 7.5 x10^3uL (1.8-7.7); NEUT % 67 % (31-73); PLATELET COUNT 188 x10^3/uL (140-400); RED BLOOD COUNT 3.78 x10^6/uL (3.50-5.40); RED CELL DISTRIBUTION WIDTH 13.5 % (11.5-14.5); WHITE BLOOD COUNT 11.1 x10^3/uL (4.0-11.0)
[2019-03-06] MEDS: PANTOPRAZOLE 40 MG TABLET.DR. PO SCH (08:33)
[2019-03-06] MEDS: predniSONE 20 MG TABLET PO SCH (08:33)
[2019-03-06 11:00] VITALS: BP 122/77
--- NOTE | 2019-03-06 12:36 | PDOC ---
PROGRESS NOTES Chief Complaint Chief Complaint Abdominal pain History of Present Illness History of Present Illness Patient was resting in bed today. She was tearful today about her possibility of no improvement and her limited bowel she has left. She tried her prednisone PO today with sprite and she said it made her nauseous but no vomiting. She is open to the possibility of going to a SNU but would rather go home. Vitals Vitals Vital Signs Date Time Temp Pulse Resp B/P (MAP) Pulse Ox O2 Delivery O2 Flow Rate FiO2 03/06/19 11:00 98.1 93 16 122/77 (92) 99 Room Air 98.1 Physical Exam General: Alert, Oriented X3, Cooperative, No acute distress Heart: Regular rate, Normal S1, Normal S2, No murmurs Lungs: Clear (No wheezes, rales, or rhonchi) Abdomen: Soft, No masses, Other (Mild tenderness) Extremities: Normal pulses, No tenderness/swelling, Other (Mild edema and bruis ing in her LEs) Skin: No rashes, No breakdown, No significant lesion Labs LABS Laboratory Tests Test 03/06/19 06:35 White Blood Count 11.1 x10^3/uL (4.0-11.0) Red Blood Count 3.78 x10^6/uL (3.50-5.40) Hemoglobin 11.9 g/dL (12.0-15.5) Hematocrit 35.9 % (36.0-47.0) Mean Corpuscular Volume 95 fL (79-100) Mean Corpuscular Hemoglobin 32 pg (25-35) Mean Corpuscular Hemoglobin Concent 33 g/dL (31-37) Red Cell Distribution Width 13.5 % (11.5-14.5) Platelet Count 188 x10^3/uL (140-400) Neutrophils (%) (Auto) 67 % (31-73) Lymphocytes (%) (Auto) 24 % (24-48) Monocytes (%) (Auto) 8 % (0-9) Eosinophils (%) (Auto) 1 % (0-3) Basophils (%) (Auto) 0 % (0-3) Neutrophils # (Auto) 7.5 x10^3uL (1.8-7.7) Lymphocytes # (Auto) 2.6 x10^3/uL (1.0-4.8) Monocytes # (Auto) 0.9 x10^3/uL (0.0-1.1) Eosinophils # (Auto) 0.1 x10^3/uL (0.0-0.7) Basophils # (Auto) 0.0 x10^3/uL (0.0-0.2) Sodium Level 141 mmol/L (136-145) Potassium Level 3.6 mmol/L (3.5-5.1) Chloride Level 105 mmol/L (98-107) Carbon Dioxide Level 31 mmol/L (21-32) Anion Gap 5 (6-14) Blood Urea Nitrogen 12 mg/dL (7-20) Creatinine 0.8 mg/dL (0.6-1.0) Estimated GFR (Cockcroft-Gault) 79.9 Glucose Level 98 mg/dL (70-99) Calcium Level 8.2 mg/dL (8.5-10.1) Review of Systems Review of Systems Patient still has nausea. She denies fevers, chills, vomiting, CP, SOB. Assessment and Plan Assessmemt and Plan Problems Medical Problems: (1) Partial small bowel obstruction Status: Acute Assessment: H/o Crohn's, multiple abd surgeries ( at least 20 x ex lap - mid umbilical scar) Indwelling left sided colostomy N/v, abd pain, decreased ostomy output, weight loss Chronic pain LE swelling Hypokalemia Plan: NG suctioning PRN, hope to remove NG tube today TPN Try PO meds per GI Try clear liquids today Dilaudid for pain management Levofloxacin for UTI- completed Solu-medrol and benadryl Lasix GI consult General surgery consult F/u labs Continue home meds PT/OT Ambulation for DVT 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 Comment Review of Relevant I have reviewed the following items kathy (where applicable) has been applied. Labs Laboratory Tests Test 03/05/19 05:55 03/06/19 06:35 White Blood Count 9.9 x10^3/uL (4.0-11.0) 11.1 x10^3/uL (4.0-11.0) Red Blood Count 3.64 x10^6/uL (3.50-5.40) 3.78 x10^6/uL (3.50-5.40) Hemoglobin 11.6 g/dL (12.0-15.5) 11.9 g/dL (12.0-15.5) Hematocrit 34.8 % (36.0-47.0) 35.9 % (36.0-47.0) Mean Corpuscular Volume 96 fL (79-100) 95 fL (79-100) Mean Corpuscular Hemoglobin 32 pg (25-35) 32 pg (25-35) Mean Corpuscular Hemoglobin Concent 33 g/dL (31-37) 33 g/dL (31-37) Red Cell Distribution Width 13.4 % (11.5-14.5) 13.5 % (11.5-14.5) Platelet Count 209 x10^3/uL (140-400) 188 x10^3/uL (140-400) Neutrophils (%) (Auto) 67 % (31-73) 67 % (31-73) Lymphocytes (%) (Auto) 23 % (24-48) 24 % (24-48) Monocytes (%) (Auto) 9 % (0-9) 8 % (0-9) Eosinophils (%) (Auto) 1 % (0-3) 1 % (0-3) Basophils (%) (Auto) 0 % (0-3) 0 % (0-3) Neutrophils # (Auto) 6.6 x10^3uL (1.8-7.7) 7.5 x10^3uL (1.8-7.7) Lymphocytes # (Auto) 2.2 x10^3/uL (1.0-4.8) 2.6 x10^3/uL (1.0-4.8) Monocytes # (Auto) 0.9 x10^3/uL (0.0-1.1) 0.9 x10^3/uL (0.0-1.1) Eosinophils # (Auto) 0.1 x10^3/uL (0.0-0.7) 0.1 x10^3/uL (0.0-0.7) Basophils # (Auto) 0.0 x10^3/uL (0.0-0.2) 0.0 x10^3/uL (0.0-0.2) Sodium Level 141 mmol/L (136-145) 141 mmol/L (136-145) Potassium Level 3.9 mmol/L (3.5-5.1) 3.6 mmol/L (3.5-5.1) Chloride Level 106 mmol/L (98-107) 105 mmol/L (98-107) Carbon Dioxide Level 32 mmol/L (21-32) 31 mmol/L (21-32) Anion Gap 3 (6-14) 5 (6-14) Blood Urea Nitrogen 12 mg/dL (7-20) 12 mg/dL (7-20) Creatinine 0.8 mg/dL (0.6-1.0) 0.8 mg/dL (0.6-1.0) Estimated GFR (Cockcroft-Gault) 79.9 79.9 Glucose Level 82 mg/dL (70-99) 98 mg/dL (70-99) Calcium Level 8.1 mg/dL (8.5-10.1) 8.2 mg/dL (8.5-10.1) Laboratory Tests Test 03/06/19 06:35 White Blood Count 11.1 x10^3/uL (4.0-11.0) Red Blood Count 3.78 x10^6/uL (3.50-5.40) Hemoglobin 11.9 g/dL (12.0-15.5) Hematocrit 35.9 % (36.0-47.0) Mean Corpuscular Volume 95 fL (79-100) Mean Corpuscular Hemoglobin 32 pg (25-35) Mean Corpuscular Hemoglobin Concent 33 g/dL (31-37) Red Cell Distribution Width 13.5 % (11.5-14.5) Platelet Count 188 x10^3/uL (140-400) Neutrophils (%) (Auto) 67 % (31-73) Lymphocytes (%) (Auto) 24 % (24-48) Monocytes (%) (Auto) 8 % (0-9) Eosinophils (%) (Auto) 1 % (0-3) Basophils (%) (Auto) 0 % (0-3) Neutrophils # (Auto) 7.5 x10^3uL (1.8-7.7) Lymphocytes # (Auto) 2.6 x10^3/uL (1.0-4.8) Monocytes # (Auto) 0.9 x10^3/uL (0.0-1.1) Eosinophils # (Auto) 0.1 x10^3/uL (0.0-0.7) Basophils # (Auto) 0.0 x10^3/uL (0.0-0.2) Sodium Level 141 mmol/L (136-145) Potassium Level 3.6 mmol/L (3.5-5.1) Chloride Level 105 mmol/L (98-107) Carbon Dioxide Level 31 mmol/L (21-32) Anion Gap 5 (6-14) Blood Urea Nitrogen 12 mg/dL (7-20) Creatinine 0.8 mg/dL (0.6-1.0) Estimated GFR (Cockcroft-Gault) 79.9 Glucose Level 98 mg/dL (70-99) Calcium Level 8.2 mg/dL (8.5-10.1) Medications Current Medications Hydromorphone HCl (Dilaudid) 0.5 mg 1X ONCE IV Last administered on 02/21/19at 22:47; Start 02/21/19 at 22:30; Stop 02/21/19 at 22:31; Status DC Ondansetron HCl (Zofran) 4 mg 1X ONCE IV Last administered on 02/21/19at 22:46; Start 02/21/19 at 22:30; Stop 02/21/19 at 22:31; Status DC Sodium Chloride (NORMAL SALINE FLUSH for STERILE FIELD) 10 ml STK-MED ONCE .ROUTE ; Start 02/21/19 at 22:22; Stop 02/21/19 at 22:23; Status DC Hydromorphone HCl (Dilaudid) 0.5 mg 1X ONCE IV Last administered on 02/22/19at 00:12; Start 02/22/19 at 00:00; Stop 02/22/19 at 00:01; Status DC Ondansetron HCl (Zofran) 4 mg 1X ONCE IV Last administered on 02/22/19at 00:12; Start 02/22/19 at 00:00; Stop 02/22/19 at 00:01; Status DC Ondansetron HCl (Zofran) 4 mg PRN Q8HRS PRN IV NAUSEA/VOMITING 1ST CHOICE Last administered on 02/22/19at 04:20; Start 02/22/19 at 00:00; Stop 02/22/19 at 09:33; Status DC Morphine Sulfate (Morphine Sulfate) 4 mg PRN Q2HR PRN IV SEVERE PAIN; Start 02/22/19 at 00:00; Stop 02/22/19 at 04:50; Status DC Benzocaine (Hurricaine One) 1 spray 1X ONCE MM Last administered on 02/22/19at 00:12; Start 02/22/19 at 00:30; Stop 02/22/19 at 00:31; Status DC Hydromorphone HCl (Dilaudid) 1.5 mg PRN Q6HRS PRN IV SEVERE PAIN Last administered on 02/22/19at 08:11; Start 02/22/19 at 01:30; Stop 02/22/19 at 12:21; Status DC Sodium Chloride 1,000 ml @ 125 mls/hr Q8H IV Last administered on 02/22/19 06:03; Start 02/22/19 at 06:00; Stop 02/22/19 at 09:33; Status DC Hydromorphone HCl (Dilaudid) 1 mg 1X ONCE IV Last administered on 02/22/19at 06:02; Start 02/22/19 at 06:00; Stop 02/22/19 at 06:01; Status DC Ondansetron HCl (Zofran) 4 mg PRN Q6HRS PRN IV NAUSEA/VOMITING 1ST CHOICE Last administered on 03/06/19at 12:21; Start 02/22/19 at 09:45 Diphenhydramine HCl (Benadryl) 25 mg PRN QHS PRN IVP sleep Last administered on 02/22/19at 12:45; Start 02/22/19 at 09:45; Stop 02/22/19 at 18:41; Status DC Potassium Chloride/Dextrose/ Sod Cl 1,000 ml @ 100 mls/hr 1X ONCE IV Last administered on 02/22/19at 10:51; Start 02/22/19 at 10:30; Stop 02/22/19 at 20:29; Status DC Pantoprazole Sodium (PROTONIX VIAL for IV PUSH) 40 mg DAILYAC IVP Last administered on 03/05/19at 05:32; Start 02/22/19 at 11:30; Stop 03/05/19 at 13:12; Status DC Methylprednisolone Sodium Succinate (SOLU-Medrol 40MG VIAL) 20 mg Q12HR IV Last administered on 02/26/19at 10:10; Start 02/22/19 at 12:00; Stop 02/26/19 at 12:28; Status DC Hydromorphone HCl (Dilaudid) 1.5 mg PRN Q4HRS PRN IV SEVERE PAIN Last administered on 02/23/19at 21:12; Start 02/22/19 at 12:30; Stop 02/23/19 at 22:58; Status DC Diphenhydramine HCl (Benadryl) 25 mg PRN Q6HRS PRN IVP ITCHING Last administered on 03/06/19at 12:21; Start 02/22/19 at 12:45 Sodium Chloride 1,000 ml @ 100 mls/hr Q10H IV Last administered on 02/24/19at 14:22; Start 02/22/19 at 22:00; Stop 02/25/19 at 10:25; Status DC Levofloxacin/ Dextrose 100 ml @ 100 mls/hr Q24H IV Last administered on 03/05/19at 21:37; Start 02/23/19 at 21:00; Stop 03/06/19 at 09:57; Status DC Hydromorphone HCl (Dilaudid) 2 mg PRN Q3HRS PRN IV SEVERE PAIN Last administered on 03/06/19at 09:18; Start 02/23/19 at 22:55 Info (Tpn Per Pharmacy) 1 each PRN DAILY PRN MC SEE COMMENTS Last administered on 03/05/19at 13:35; Start 02/24/19 at 08:15 Cyanocobalamin (Vitamin B-12) 1,000 mcg 1X STAT IM Last administered on 02/24/19at 12:06; Start 02/24/19 at 10:05; Stop 02/24/19 at 10:08; Status DC Sodium Chloride 90 meq/Potassium Chloride 50 meq/ Potassium Phosphate 16 mmol/ Magnesium Sulfate 10 meq/Calcium Gluconate 10 meq/ Multivitamins 10 ml/Chromium/ Copper/Manganese/ Seleni/Zn 1 ml/ Total Parenteral Nutrition/Amino Acids/Dextrose/ Fat Emulsion Intravenous 1,512 ml @ 63 mls/hr TPN CONT IV Last administered on 02/24/19at 22:25; Start 02/24/19 at 22:00; Stop 02/26/19 at 00:37; Status DC Diphenhydramine HCl (Benadryl) 50 mg 1X ONCE IVP Last administered on 02/25/19at 02:16; Start 02/25/19 at 02:00; Stop 02/25/19 at 02:01; Status DC Sodium Chloride 90 meq/Potassium Chloride 50 meq/ Potassium Phosphate 16 mmol/ Magnesium Sulfate 15 meq/Calcium Gluconate 10 meq/ Multivitamins 10 ml/Chromium/ Copper/Manganese/ Seleni/Zn 1 ml/ Total Parenteral Nutrition/Amino Acids/Dextrose/ Fat Emulsion Intravenous 1,512 ml @ 63 mls/hr TPN CONT IV ; Start 02/25/19 at 22:00; Stop 02/26/19 at 21:59; Status DC Iohexol (Omnipaque 300 Mg/ml) 400 ml 1X ONCE PO ; Start 02/26/19 at 08:15; Stop 02/26/19 at 08:16; Status UNV Methylprednisolone Sodium Succinate (SOLU-Medrol 40MG VIAL) 20 mg DAILY IV Last administered on 03/05/19at 08:11; Start 02/27/19 at 09:00; Stop 03/05/19 at 13:12; Status DC Sodium Chloride 90 meq/Potassium Chloride 50 meq/ Potassium Phosphate 16 mmol/ Magnesium Sulfate 15 meq/Calcium Gluconate 10 meq/ Multivitamins 10 ml/Chromium/ Copper/Manganese/ Seleni/Zn 1 ml/ Total Parenteral Nutrition/Amino Acids/Dextrose/ Fat Emulsion Intravenous 1,512 ml @ 63 mls/hr TPN CONT IV Last administered on 02/26/19at 22:38; Start 02/26/19 at 22:00; Stop 02/27/19 at 21:59; Status DC Furosemide (Lasix) 10 mg DAILY IVP Last administered on 02/27/19at 08:36; Start 02/26/19 at 16:00; Stop 02/27/19 at 10:26; Status DC Iohexol (Omnipaque 300 Mg/ml) 400 ml 1X ONCE PO Last administered on 02/27/19at 10:00; Start 02/27/19 at 08:45; Stop 02/27/19 at 09:01; Status DC Sodium Chloride 90 meq/Potassium Chloride 50 meq/ Potassium Phosphate 16 mmol/ Magnesium Sulfate 15 meq/Calcium Gluconate 10 meq/ Multivitamins 10 ml/Chromium/ Copper/Manganese/ Seleni/Zn 1 ml/ Total Parenteral Nutrition/Amino Acids/Dext michelle/ Fat Emulsion Intravenous 1,512 ml @ 63 mls/hr TPN CONT IV Last administered on 02/27/19at 22:59; Start 02/27/19 at 22:00; Stop 02/28/19 at 21:59; Status DC Iohexol (Omnipaque 300 Mg/ml) 400 ml 1X ONCE PO Last administered on 02/28/19at 09:45; Start 02/28/19 at 09:45; Stop 02/28/19 at 09:46; Status DC Potassium Chloride/Water 100 ml @ 100 mls/hr Q1H IV Last administered on 02/28/19at 14:34; Start 02/28/19 at 11:00; Stop 02/28/19 at 12:59; Status DC Sodium Chloride 90 meq/Potassium Chloride 60 meq/ Potassium Phosphate 16 mmol/ Magnesium Sulfate 15 meq/Calcium Gluconate 10 meq/ Multivitamins 10 ml/Chromium/ Copper/Manganese/ Seleni/Zn 1 ml/ Total Parenteral Nutrition/Amino Acids/Dextrose/ Fat Emulsion Intravenous 1,512 ml @ 63 mls/hr TPN CONT IV Last administered on 02/28/19at 22:10; Start 02/28/19 at 22:00; Stop 03/01/19 at 21:59; Status DC Furosemide (Lasix) 10 mg 1X ONCE IVP Last administered on 02/28/19at 15:15; Start 02/28/19 at 15:15; Stop 02/28/19 at 15:16; Status DC Furosemide (Lasix) 20 mg PRN DAILY PRN IVP lower extremity edema; Start 02/28/19 at 15:15; Stop 02/28/19 at 15:15; Status DC Furosemide (Lasix) 10 mg PRN DAILY PRN IVP lower extremity edema Last administered on 03/05/19at 08:11; Start 02/28/19 at 15:15; Stop 03/05/19 at 13: 12; Status DC Sodium Chloride 90 meq/Potassium Chloride 60 meq/ Potassium Phosphate 16 mmol/ Magnesium Sulfate 15 meq/Calcium Gluconate 10 meq/ Multivitamins 10 ml/Chromium/ Copper/Manganese/ Seleni/Zn 1 ml/ Total Parenteral Nutrition/Amino Acids/Dextrose/ Fat Emulsion Intravenous 1,512 ml @ 63 mls/hr TPN CONT IV Last administered on 03/01/19at 22:28; Start 03/01/19 at 22:00; Stop 03/02/19 at 21:59; Status DC Sodium Chloride 110 meq/Potassium Chloride 60 meq/ Potassium Phosphate 16 mmol/ Magnesium Sulfate 15 meq/Calcium Gluconate 10 meq/ Multivitamins 10 ml/Chromium/ Copper/Manganese/ Seleni/Zn 1 ml/ Total Parenteral Nutrition/Amino Acids/Dextrose/ Fat Emulsion Intravenous 1,512 ml @ 63 mls/hr TPN CONT IV Last administered on 03/02/19at 22:39; Start 03/02/19 at 22:00; Stop 03/03/19 at 21:59; Status DC Sodium Chloride 100 meq/Potassium Chloride 80 meq/ Potassium Phosphate 16 mmol/ Magnesium Sulfate 15 meq/Calcium Gluconate 12 meq/ Multivitamins 10 ml/Chromium/ Copper/Manganese/ Seleni/Zn 1 ml/ Total Parenteral Nutrition/Amino Acids/Dextrose/ Fat Emulsion Intravenous 1,512 ml @ 63 mls/hr TPN CONT IV Last administered on 03/03/19at 23:28; Start 03/03/19 at 22:00; Stop 03/04/19 at 21:59; Status DC Potassium Chloride/Water 50 ml @ 50 mls/hr Q1H IV Last administered on 03/03/19at 17:00; Start 03/03/19 at 13:30; Stop 03/03/19 at 15:29; Status DC Sodium Chloride 100 meq/Potassium Chloride 80 meq/ Potassium Phosphate 16 mmol/ Magnesium Sulfate 15 meq/Calcium Gluconate 12 meq/ Multivitamins 10 ml/Chromium/ Copper/Manganese/ Seleni/Zn 1 ml/ Total Parenteral Nutrition/Amino Acids/Dextrose/ Fat Emulsion Intravenous 1,512 ml @ 63 mls/hr TPN CONT IV Last administered on 03/04/19at 22:19; Start 03/04/19 at 22:00; Stop 03/05/19 at 21:59; Status DC Pantoprazole Sodium (Protonix) 40 mg DAILYAC PO Last administered on 03/06/19at 08:33; Start 03/06/19 at 07:30 Prednisone (Prednisone) 20 mg DAILY PO Last administered on 03/06/19at 08:33; Start 03/06/19 at 09:00 Furosemide (Lasix) 10 mg PRN DAILY PRN PO LE swelling; Start 03/05/19 at 13:15 Sodium Chloride 100 meq/Potassium Chloride 80 meq/ Potassium Phosphate 16 mmol/ Magnesium Sulfate 15 meq/Calcium Gluconate 12 meq/ Multivitamins 10 ml/Chromium/ Copper/Manganese/ Seleni/Zn 1 ml/ Total Parenteral Nutrition/Amino Acids/De xtrose/ Fat Emulsion Intravenous 1,512 ml @ 63 mls/hr TPN CONT IV Last administered on 03/05/19at 22:25; Start 03/05/19 at 22:00; Stop 03/06/19 at 21:59 Active Scripts Active Reported [dilaudid liquid] 1.5 Mg PO PRN Q8HRS PRN [ferous sulfate] Mg PO DAILY [vitamin B12 inject.] MONTHLY Vitamin D3 (Cholecalciferol (Vitamin D3)) 5,000 Unit Tablet 5,000 Unit PO WEEKLY Tablet (Pnv Cmb#95/Ferrous Fumarate/Fa) 1 Each Tablet 1 Tab PO DAILY Benadryl (Diphenhydramine Hcl) 25 Mg Capsule 25 Mg PO PRN Q4-6HRS PRN Zofran Odt (Ondansetron) 4 Mg Tab.rapdis 4 Mg PO BID PRN Biotin 10,000 Mcg Tab.rapdis 10,000 Mcg PO DAILY Simethicone 125 Mg Capsule 125 Mg PO PRN DAILY PRN Pantoprazole Sodium 40 Mg Tablet.dr 40 Mg PO DAILY Clonazepam 1 Mg Tablet 1 Tab PO PRN BID PRN Vitals/I & O Vital Sign - Last 24 Hours 03/05/19 03/05/19 03/05/19 03/05/19 13:58 15:00 17:12 19:15 Temp 98.0 98.0 98.0 98.0 Pulse 95 84 Resp 18 18 B/P (MAP) 146/93 (110) 125/83 (97) Pulse Ox 98 98 O2 Delivery Room Air Room Air Room Air Room Air 03/05/19 03/05/19 03/05/19 03/05/19 20:15 20:20 23:05 23:29 Temp 97.6 97.6 Pulse 89 Resp 20 18 20 B/P (MAP) 133/85 (101) Pulse Ox 97 O2 Delivery Room Air Room Air Room Air 03/06/19 03/06/19 03/06/19 03/06/19 02:48 03:15 03:18 06:10 Temp 97.6 97.6 Pulse 84 Resp 20 18 20 20 B/P (MAP) 139/87 (104) Pulse Ox 100 O2 Delivery Room Air Room Air Room Air 03/06/19 03/06/19 03/06/19 03/06/19 07:00 07:51 08:00 09:18 Temp 97.8 97.8 Pulse 102 Resp 16 B/P (MAP) 139/89 (106) Pulse Ox 99 100 O2 Delivery Room Air Room Air Room Air 03/06/19 03/06/19 09:49 11:00 Temp 98.1 98.1 Pulse 93 Resp 16 B/P (MAP) 122/77 (92) Pulse Ox 99 O2 Delivery Room Air Room Air Intake and Output 03/05/19 03/05/19 03/06/19 15:00 23:00 07:00 Intake Total 100 ml 1872 ml Output Total 200 ml 200 ml Balance -100 ml 1672 ml ALEJANDRO PRINCE III, DO Mar 06, 2019 12:35
[2019-03-06] MEDS: TPN PER PHARMACY MC PRN (13:01)
--- NOTE | 2019-03-06 13:03 | NUR ---
Pharmacy TPN Dosing Note S: MATTHEW HOLGUIN is a 39 year old F Currently receiving Central Continuous TPN started 02/24/19 B:Pertinent PMH: Partial SBO. No oral intake for long period of time. Height: 5 feet, 7 inches Weight: 71.756612 kg Current diet: CLEARS LABS: Sodium: 141 Potassium: 3.6 Chloride: 105 Calcium: 8.2 Corrected Calcium: 8.12 Magnesium: 2.1 CO2: 31 SCr: 0.8 Glucose: 98 Albumin: 4.1 AST: 24 (02/21) ALT: 32 (02/21) TPN FORMULA: TPN TYPE: Central Continuous AMINO ACIDS: 70 gm DEXTROSE: 250 gm LIPIDS: 30 gm SODIUM CHLORIDE: 100 mEq SODIUM ACETATE: - mEq SODIUM PHOSPHATE: - mmol POTASSIUM CHLORIDE: 80 mEq POTASSIUM ACETATE: - mEq POTASSIUM PHOSPHATE: 16 mmol MAGNESIUM: 15 mEq CALCIUM: 12 mEq INSULIN: units MULTIPLE VITAMIN: 10 ml TRACE ELEMENTS: 1ml ml(s) TPN PLAN: no change in tpn; mag and phos tomorrow per protocol R: Continue TPN as written above. Will monitor electrolytes, glucose, and tolerance to TPN. CALI RAMACHANDRAN [facility], 03/06/19 [id number]
--- NOTE | 2019-03-06 14:03 | PDOC ---
Subjective: Subjective: I asked how she was feeling and she said "it doesn't matter because my insurance wants me out, right?" Tried drinking - says can't tolerate and uses NG to suction. Says not passing gas and it's painful. Wants to know why she can't have hernia repair. Objective: Vital Signs: Vital Signs Date Time Temp Pulse Resp B/P (MAP) Pulse Ox O2 Delivery O2 Flow Rate FiO2 03/06/19 13:13 Room Air 03/06/19 11:00 98.1 93 16 122/77 (92) 99 98.1 PE: GEN: NAD LUNGS: CTAB HEART: RRR ABD: BS active BLQ NEURO/PSYCH: A & O 3, tearful A/P: H/o Crohn's and multiple abd surgeries and chronic pain w/ obstructive symptoms -- She is frustrated. Remove NG. MARIA EUGENIA MO Mar 06, 2019 14:03
[2019-03-06 15:00] VITALS: BP 138/85
[2019-03-06] MEDS: FUROSEMIDE 20 MG TABLET PO PRN (18:10)
[2019-03-06 19:00] VITALS: BP 120/77
[2019-03-06] MEDS ORDERED: AMINO ACID IV SCH ×10 (22:00)
[2019-03-06] MEDS ORDERED: [UNRECOGNIZED DRUG - OTHER] IV SCH ×10 (22:00)
[2019-03-06] MEDS ORDERED: DEXTROSE 70% IV SCH ×10 (22:00)
[2019-03-06] MEDS ORDERED: TOTAL PARENTERAL NUTRITION IV SCH ×10 (22:00)
[2019-03-06 23:00] VITALS: BP 119/75
[2019-03-07] MEDS: ONDANSETRON PF 4 MG/2 ML VIAL. IV PRN ×4 (00:25→20:02)
[2019-03-07] MEDS: diphenhydrAMINE 50 MG/ML VIAL IVP PRN ×4 (00:26→20:02)
[2019-03-07] MEDS: HYDROmorphone 2 MG/ML VIAL IV PRN ×9 (00:26→23:49)
[2019-03-07 03:00] VITALS: BP 125/79
[2019-03-07 06:56] LABS: BASO % 0 % (0-3); EOS # 0.1 x10^3/uL (0.0-0.7); EOS % 0 % (0-3); HEMATOCRIT 35.6 % (36.0-47.0); HEMOGLOBIN 11.8 g/dL (12.0-15.5); LYMPH # 2.5 x10^3/uL (1.0-4.8); LYMPH % 19 % (24-48); MEAN CORPUSCULAR HEMOGLOBIN 32 pg (25-35); MEAN CORPUSCULAR HGB CONC 33 g/dL (31-37); MEAN CORPUSCULAR VOLUME 95 fL (79-100); MONO # 0.9 x10^3/uL (0.0-1.1); MONO % 7 % (0-9); NEUT % 74 % (31-73); PLATELET COUNT 227 x10^3/uL (140-400); RED BLOOD COUNT 3.76 x10^6/uL (3.50-5.40); RED CELL DISTRIBUTION WIDTH 13.3 % (11.5-14.5); WHITE BLOOD COUNT 13.5 x10^3/uL (4.0-11.0)
[2019-03-07 07:00] VITALS: BP 140/87
[2019-03-07 07:09] LABS: CALCIUM 8.2 mg/dL (8.5-10.1); CREATININE 0.8 mg/dL (0.6-1.0); GFR 79.9; MAGNESIUM 1.8 mg/dL (1.8-2.4); PHOSPHORUS 3.6 mg/dL (2.6-4.7); POTASSIUM 3.5 mmol/L (3.5-5.1)
[2019-03-07] MEDS: predniSONE 20 MG TABLET PO SCH (08:02)
[2019-03-07] MEDS: PANTOPRAZOLE 40 MG TABLET.DR. PO SCH (08:02)
[2019-03-07] MEDS: FUROSEMIDE 20 MG TABLET PO PRN (08:51)
--- NOTE | 2019-03-07 09:43 | PDOC ---
PROGRESS NOTES Chief Complaint Chief Complaint Abdominal pain History of Present Illness History of Present Illness Patient was resting in bed today. Her NG tube was removed. She has tried some clear liquids. She is able to keep down a tablespoon at a time, but more causes nausea. She took one dose of lasix last night. She is ok going home soon. If she still needs TPN, she may be able to go home on that. Vitals Vitals Vital Signs Date Time Temp Pulse Resp B/P (MAP) Pulse Ox O2 Delivery O2 Flow Rate FiO2 03/07/19 09:12 Room Air 03/07/19 07:00 97.9 90 18 140/87 (104) 98 97.9 Physical Exam General: Alert, Oriented X3, Cooperative, No acute distress Heart: Regular rate, Normal S1, Normal S2, No murmurs Lungs: Clear (No wheezes, rales, or rhonchi) Abdomen: Soft, No masses, Other (Mild tenderness) Extremities: Normal pulses, No tenderness/swelling, Other (Mild edema and bruising in her LEs) Skin: No rashes, No breakdown, No significant lesion Labs LABS Laboratory Tests Test 03/07/19 06:40 White Blood Count 13.5 x10^3/uL (4.0-11.0) Red Blood Count 3.76 x10^6/uL (3.50-5.40) Hemoglobin 11.8 g/dL (12.0-15.5) Hematocrit 35.6 % (36.0-47.0) Mean Corpuscular Volume 95 fL (79-100) Mean Corpuscular Hemoglobin 32 pg (25-35) Mean Corpuscular Hemoglobin Concent 33 g/dL (31-37) Red Cell Distribution Width 13.3 % (11.5-14.5) Platelet Count 227 x10^3/uL (140-400) Neutrophils (%) (Auto) 74 % (31-73) Lymphocytes (%) (Auto) 19 % (24-48) Monocytes (%) (Auto) 7 % (0-9) Eosinophils (%) (Auto) 0 % (0-3) Basophils (%) (Auto) 0 % (0-3) Neutrophils # (Auto) 10.0 x10^3uL (1.8-7.7) Lymphocytes # (Auto) 2.5 x10^3/uL (1.0-4.8) Monocytes # (Auto) 0.9 x10^3/uL (0.0-1.1) Eosinophils # (Auto) 0.1 x10^3/uL (0.0-0.7) Basophils # (Auto) 0.0 x10^3/uL (0.0-0.2) Sodium Level 138 mmol/L (136-145) Potassium Level 3.5 mmol/L (3.5-5.1) Chloride Level 102 mmol/L (98-107) Carbon Dioxide Level 33 mmol/L (21-32) Anion Gap 3 (6-14) Blood Urea Nitrogen 11 mg/dL (7-20) Creatinine 0.8 mg/dL (0.6-1.0) Estimated GFR (Cockcroft-Gault) 79.9 Glucose Level 116 mg/dL (70-99) Calcium Level 8.2 mg/dL (8.5-10.1) Phosphorus Level 3.6 mg/dL (2.6-4.7) Magnesium Level 1.8 mg/dL (1.8-2.4) Review of Systems Review of Systems Patient is having nausea but no vomiting. She denies fevers, chills, CP, SOB. Assessment and Plan Assessmemt and Plan Problems Medical Problems: (1) Partial small bowel obstruction Status: Acute Assessment: H/o Crohn's, multiple abd surgeries ( at least 20 x ex lap - mid umbilical scar) Indwelling left sided colostomy N/v, abd pain, decreased ostomy output, weight loss Chronic pain LE swelling Hypokalemia Plan: NG tube removed TPN Try PO meds Encourage clear liquid diet Dilaudid for pain management Solu-medrol and benadryl Lasix GI consult General surgery consult F/u labs Continue home meds PT/OT Ambulation for DVT prophylaxis Comment Review of Relevant I have reviewed the following items kathy (where applicable) has been applied. Labs Laboratory Tests Test 03/06/19 06:35 03/07/19 06:40 White Blood Count 11.1 x10^3/uL (4.0-11.0) 13.5 x10^3/uL (4.0-11.0) Red Blood Count 3.78 x10^6/uL (3.50-5.40) 3.76 x10^6/uL (3.50-5.40) Hemoglobin 11.9 g/dL (12.0-15.5) 11.8 g/dL (12.0-15.5) Hematocrit 35.9 % (36.0-47.0) 35.6 % (36.0-47.0) Mean Corpuscular Volume 95 fL (79-100) 95 fL (79-100) Mean Corpuscular Hemoglobin 32 pg (25-35) 32 pg (25-35) Mean Corpuscular Hemoglobin Concent 33 g/dL (31-37) 33 g/dL (31-37) Red Cell Distribution Width 13.5 % (11.5-14.5) 13.3 % (11.5-14.5) Platelet Count 188 x10^3/uL (140-400) 227 x10^3/uL (140-400) Neutrophils (%) (Auto) 67 % (31-73) 74 % (31-73) Lymphocytes (%) (Auto) 24 % (24-48) 19 % (24-48) Monocytes (%) (Auto) 8 % (0-9) 7 % (0-9) Eosinophils (%) (Auto) 1 % (0-3) 0 % (0-3) Basophils (%) (Auto) 0 % (0-3) 0 % (0-3) Neutrophils # (Auto) 7.5 x10^3uL (1.8-7.7) 10.0 x10^3uL (1.8-7.7) Lymphocytes # (Auto) 2.6 x10^3/uL (1.0-4.8) 2.5 x10^3/uL (1.0-4.8) Monocytes # (Auto) 0.9 x10^3/uL (0.0-1.1) 0.9 x10^3/uL (0.0-1.1) Eosinophils # (Auto) 0.1 x10^3/uL (0.0-0.7) 0.1 x10^3/uL (0.0-0.7) Basophils # (Auto) 0.0 x10^3/uL (0.0-0.2) 0.0 x10^3/uL (0.0-0.2) Sodium Level 141 mmol/L (136-145) 138 mmol/L (136-145) Potassium Level 3.6 mmol/L (3.5-5.1) 3.5 mmol/L (3.5-5.1) Chloride Level 105 mmol/L (98-107) 102 mmol/L (98-107) Carbon Dioxide Level 31 mmol/L (21-32) 33 mmol/L (21-32) Anion Gap 5 (6-14) 3 (6-14) Blood Urea Nitrogen 12 mg/dL (7-20) 11 mg/dL (7-20) Creatinine 0.8 mg/dL (0.6-1.0) 0.8 mg/dL (0.6-1.0) Estimated GFR (Cockcroft-Gault) 79.9 79.9 Glucose Level 98 mg/dL (70-99) 116 mg/dL (70-99) Calcium Level 8.2 mg/dL (8.5-10.1) 8.2 mg/dL (8.5-10.1) Phosphorus Level 3.6 mg/dL (2.6-4.7) Magnesium Level 1.8 mg/dL (1.8-2.4) Laboratory Tests Test 03/07/19 06:40 White Blood Count 13.5 x10^3/uL (4.0-11.0) Red Blood Count 3.76 x10^6/uL (3.50-5.40) Hemoglobin 11.8 g/dL (12.0-15.5) Hematocrit 35.6 % (36.0-47.0) Mean Corpuscular Volume 95 fL (79-100) Mean Corpuscular Hemoglobin 32 pg (25-35) Mean Corpuscular Hemoglobin Concent 33 g/dL (31-37) Red Cell Distribution Width 13.3 % (11.5-14.5) Platelet Count 227 x10^3/uL (140-400) Neutrophils (%) (Auto) 74 % (31-73) Lymphocytes (%) (Auto) 19 % (24-48) Monocytes (%) (Auto) 7 % (0-9) Eosinophils (%) (Auto) 0 % (0-3) Basophils (%) (Auto) 0 % (0-3) Neutrophils # (Auto) 10.0 x10^3uL (1.8-7.7) Lymphocytes # (Auto) 2.5 x10^3/uL (1.0-4.8) Monocytes # (Auto) 0.9 x10^3/uL (0.0-1.1) Eosinophils # (Auto) 0.1 x10^3/uL (0.0-0.7) Basophils # (Auto) 0.0 x10^3/uL (0.0-0.2) Sodium Level 138 mmol/L (136-145) Potassium Level 3.5 mmol/L (3.5-5.1) Chloride Level 102 mmol/L (98-107) Carbon Dioxide Level 33 mmol/L (21-32) Anion Gap 3 (6-14) Blood Urea Nitrogen 11 mg/dL (7-20) Creatinine 0.8 mg/dL (0.6-1.0) Estimated GFR (Cockcroft-Gault) 79.9 Glucose Level 116 mg/dL (70-99) Calcium Level 8.2 mg/dL (8.5-10.1) Phosphorus Level 3.6 mg/dL (2.6-4.7) Magnesium Level 1.8 mg/dL (1.8-2.4) Medications Current Medications Hydromorphone HCl (Dilaudid) 0.5 mg 1X ONCE IV Last administered on 02/21/19at 22:47; Start 02/21/19 at 22:30; Stop 02/21/19 at 22:31; Status DC Ondansetron HCl (Zofran) 4 mg 1X ONCE IV Last administered on 02/21/19at 22:46; Start 02/21/19 at 22:30; Stop 02/21/19 at 22:31; Status DC Sodium Chloride (NORMAL SALINE FLUSH for STERILE FIELD) 10 ml Xention-MED ONCE .ROUTE ; Start 02/21/19 at 22:22; Stop 02/21/19 at 22:23; Status DC Hydromorphone HCl (Dilaudid) 0.5 mg 1X ONCE IV Last administered on 02/22/19at 00:12; Start 02/22/19 at 00:00; Stop 02/22/19 at 00:01; Status DC Ondansetron HCl (Zofran) 4 mg 1X ONCE IV Last administered on 02/22/19at 00:12; Start 02/22/19 at 00:00; Stop 02/22/19 at 00:01; Status DC Ondansetron HCl (Zofran) 4 mg PRN Q8HRS PRN IV NAUSEA/VOMITING 1ST CHOICE Last administered on 02/22/19at 04:20; Start 02/22/19 at 00:00; Stop 02/22/19 at 09:33; Status DC Morphine Sulfate (Morphine Sulfate) 4 mg PRN Q2HR PRN IV SEVERE PAIN; Start 02/22/19 at 00:00; Stop 02/22/19 at 04:50; Status DC Benzocaine (Hurricaine One) 1 spray 1X ONCE MM Last administered on 02/22/19at 00:12; Start 02/22/19 at 00:30; Stop 02/22/19 at 00:31; Status DC Hydromorphone HCl (Dilaudid) 1.5 mg PRN Q6HRS PRN IV SEVERE PAIN Last administered on 02/22/19 08:11; Start 02/22/19 at 01:30; Stop 02/22/19 at 12:21; Status DC Sodium Chloride 1,000 ml @ 125 mls/hr Q8H IV Last administered on 02/22/19 06:03; Start 02/22/19 at 06:00; Stop 02/22/19 at 09:33; Status DC Hydromorphone HCl (Dilaudid) 1 mg 1X ONCE IV Last administered on 02/22/19 06:02; Start 02/22/19 at 06:00; Stop 02/22/19 at 06:01; Status DC Ondansetron HCl (Zofran) 4 mg PRN Q6HRS PRN IV NAUSEA/VOMITING 1ST CHOICE Last administered on 03/07/19 06:42; Start 02/22/19 at 09:45 Diphenhydramine HCl (Benadryl) 25 mg PRN QHS PRN IVP sleep Last administered on 02/22/19at 12:45; Start 02/22/19 at 09:45; Stop 02/22/19 at 18:41; Status DC Potassium Chloride/Dextrose/ Sod Cl 1,000 ml @ 100 mls/hr 1X ONCE IV Last administered on 02/22/19at 10:51; Start 02/22/19 at 10:30; Stop 02/22/19 at 20 :29; Status DC Pantoprazole Sodium (PROTONIX VIAL for IV PUSH) 40 mg DAILYAC IVP Last administered on 03/05/19at 05:32; Start 02/22/19 at 11:30; Stop 03/05/19 at 13:12; Status DC Methylprednisolone Sodium Succinate (SOLU-Medrol 40MG VIAL) 20 mg Q12HR IV Last administered on 02/26/19at 10:10; Start 02/22/19 at 12:00; Stop 02/26/19 at 12:28; Status DC Hydromorphone HCl (Dilaudid) 1.5 mg PRN Q4HRS PRN IV SEVERE PAIN Last administered on 02/23/19at 21:12; Start 02/22/19 at 12:30; Stop 02/23/19 at 22:58; Status DC Diphenhydramine HCl (Benadryl) 25 mg PRN Q6HRS PRN IVP ITCHING Last administered on 03/07/19at 06:43; Start 02/22/19 at 12:45 Sodium Chloride 1,000 ml @ 100 mls/hr Q10H IV Last administered on 02/24/19 14:22; Start 02/22/19 at 22:00; Stop 02/25/19 at 10:25; Status DC Levofloxacin/ Dextrose 100 ml @ 100 mls/hr Q24H IV Last administered on 03/05/19 21:37; Start 02/23/19 at 21:00; Stop 03/06/19 at 09:57; Status DC Hydromorphone HCl (Dilaudid) 2 mg PRN Q3HRS PRN IV SEVERE PAIN Last administered on 03/07/19 08:51; Start 02/23/19 at 22:55 Info (Tpn Per Pharmacy) 1 each PRN DAILY PRN MC SEE COMMENTS Last administered on 03/06/19at 13:01; Start 02/24/19 at 08:15 Cyanocobalamin (Vitamin B-12) 1,000 mcg 1X STAT IM Last administered on 02/24/19at 12:06; Start 02/24/19 at 10:05; Stop 02/24/19 at 10:08; Status DC Sodium Chloride 90 meq/Potassium Chloride 50 meq/ Potassium Phosphate 16 mmol/ Magnesium Sulfate 10 meq/Calcium Gluconate 10 meq/ Multivitamins 10 ml/Chromium/ Copper/Manganese/ Seleni/Zn 1 ml/ Total Parenteral Nutrition/Amino Acids/Dextrose/ Fat Emulsion Intravenous 1,512 ml @ 63 mls/hr TPN CONT IV Last administered on 02/24/19at 22:25; Start 02/24/19 at 22:00; Stop 02/26/19 at 00:37; Status DC Diphenhydramine HCl (Benadryl) 50 mg 1X ONCE IVP Last administered on 02/25/19at 02:16; Start 02/25/19 at 02:00; Stop 02/25/19 at 02:01; Status DC Sodium Chloride 90 meq/Potassium Chloride 50 meq/ Potassium Phosphate 16 mmol/ Magnesium Sulfate 15 meq/Calcium Gluconate 10 meq/ Multivitamins 10 ml/Chromium/ Copper/Manganese/ Seleni/Zn 1 ml/ Total Parenteral Nutrition/Amino Acids/Dextrose/ Fat Emulsion Intravenous 1,512 ml @ 63 mls/hr TPN CONT IV ; Start 02/25/19 at 22:00; Stop 02/26/19 at 21:59; Status DC Iohexol (Omnipaque 300 Mg/ml) 400 ml 1X ONCE PO ; Start 02/26/19 at 08:15; Stop 02/26/19 at 08:16; Status UNV Methylprednisolone Sodium Succinate (SOLU-Medrol 40MG VIAL) 20 mg DAILY IV Last administered on 03/05/19at 08:11; Start 02/27/19 at 09:00; Stop 03/05/19 at 13:12; Status DC Sodium Chloride 90 meq/Potassium Chloride 50 meq/ Potassium Phosphate 16 mmol/ Magnesium Sulfate 15 meq/Calcium Gluconate 10 meq/ Multivitamins 10 ml/Chromium/ Copper/Manganese/ Seleni/Zn 1 ml/ Total Parenteral Nutrition/Amino Acids/Dextrose/ Fat Emulsion Intravenous 1,512 ml @ 63 mls/hr TPN CONT IV Last administered on 02/26/19at 22:38; Start 02/26/19 at 22:00; Stop 02/27/19 at 21:59; Status DC Furosemide (Lasix) 10 mg DAILY IVP Last administered on 02/27/19at 08:36; Start 02/26/19 at 16:00; Stop 02/27/19 at 10:26; Status DC Iohexol (Omnipaque 300 Mg/ml) 400 ml 1X ONCE PO Last administered on 02/27/19at 10:00; Start 02/27/19 at 08:45; Stop 02/27/19 at 09:01; Status DC Sodium Chloride 90 meq/Potassium Chloride 50 meq/ Potassium Phosphate 16 mmol/ Magnesium Sulfate 15 meq/Calcium Gluconate 10 meq/ Multivitamins 10 ml/Chromium/ Copper/Manganese/ Seleni/Zn 1 ml/ Total Parenteral Nutrition/Amino Acids/Dextrose/ Fat Emulsion Intravenous 1,512 ml @ 63 mls/hr TPN CONT IV Last administered on 02/27/19at 22:59; Start 02/27/19 at 22:00; Stop 02/28/19 at 21:59; Status DC Iohexol (Omnipaque 300 Mg/ml) 400 ml 1X ONCE PO Last administered on 02/28/19at 09:45; Start 02/28/19 at 09:45; Stop 02/28/19 at 09:46; Status DC Potassium Chloride/Water 100 ml @ 100 mls/hr Q1H IV Last administered on 02/28/19at 14:34; Start 02/28/19 at 11:00; Stop 02/28/19 at 12:59; Status DC Sodium Chloride 90 meq/Potassium Chloride 60 meq/ Potassium Phosphate 16 mmol/ Magnesium Sulfate 15 meq/Calcium Gluconate 10 meq/ Multivitamins 10 ml/Chromium/ Copper/Manganese/ Seleni/Zn 1 ml/ Total Parenteral Nutrition/Amino Acids/Dextrose/ Fat Emulsion Intravenous 1,512 ml @ 63 mls/hr TPN CONT IV Last administered on 02/28/19at 22:10; Start 02/28/19 at 22:00; Stop 03/01/19 at 21:59; Status DC Furosemide (Lasix) 10 mg 1X ONCE IVP Last administered on 02/28/19at 15:15; Start 02/28/19 at 15:15; Stop 02/28/19 at 15:16; Status DC Furosemide (Lasix) 20 mg PRN DAILY PRN IVP lower extremity edema; Start 02/28/19 at 15:15; Stop 02/28/19 at 15:15; Status DC Furosemide (Lasix) 10 mg PRN DAILY PRN IVP lower extremity edema Last administered on 03/05/19at 08:11; Start 02/28/19 at 15:15; Stop 03/05/19 at 13:12; Status DC Sodium Chloride 90 meq/Potassium Chloride 60 meq/ Potassium Phosphate 16 mmol/ Magnesium Sulfate 15 meq/Calcium Gluconate 10 meq/ Multivitamins 10 ml/Chromium/ Copper/Manganese/ Seleni/Zn 1 ml/ Total Parenteral Nutrition/Amino Acid s/Dextrose/ Fat Emulsion Intravenous 1,512 ml @ 63 mls/hr TPN CONT IV Last administered on 03/01/19at 22:28; Start 03/01/19 at 22:00; Stop 03/02/19 at 21:59; Status DC Sodium Chloride 110 meq/Potassium Chloride 60 meq/ Potassium Phosphate 16 mmol/ Magnesium Sulfate 15 meq/Calcium Gluconate 10 meq/ Multivitamins 10 ml/Chromium/ Copper/Manganese/ Seleni/Zn 1 ml/ Total Parenteral Nutrition/Amino Acids/Dextrose/ Fat Emulsion Intravenous 1,512 ml @ 63 mls/hr TPN CONT IV Last administered on 03/02/19at 22:39; Start 03/02/19 at 22:00; Stop 03/03/19 at 21:59; Status DC Sodium Chloride 100 meq/Potassium Chloride 80 meq/ Potassium Phosphate 16 mmol/ Magnesium Sulfate 15 meq/Calcium Gluconate 12 meq/ Multivitamins 10 ml/Chromium/ Copper/Manganese/ Seleni/Zn 1 ml/ Total Parenteral Nutrition/Amino Acids/Dextrose/ Fat Emulsion Intravenous 1,512 ml @ 63 mls/hr TPN CONT IV Last administered on 03/03/19at 23:28; Start 03/03/19 at 22:00; Stop 03/04/19 at 21:59; Status DC Potassium Chloride/Water 50 ml @ 50 mls/hr Q1H IV Last administered on 03/03/19at 17:00; Start 03/03/19 at 13:30; Stop 03/03/19 at 15:29; Status DC Sodium Chloride 100 meq/Potassium Chloride 80 meq/ Potassium Phosphate 16 mmol/ Magnesium Sulfate 15 meq/Calcium Gluconate 12 meq/ Multivitamins 10 ml/Chromium/ Copper/Manganese/ Seleni/Zn 1 ml/ Total Parenteral Nutrition/Amino Acids/Dextrose/ Fat Emulsion Intravenous 1,512 ml @ 63 mls/hr TPN CONT IV Last administered on 03/04/19at 22:19; Start 03/04/19 at 22:00; Stop 03/05/19 at 21:59; Status DC Pantoprazole Sodium (Protonix) 40 mg DAILYAC PO Last administered on 03/07/19at 08:02; Start 03/06/19 at 07:30 Prednisone (Prednisone) 20 mg DAILY PO Last administered on 03/07/19at 08:02; Start 03/06/19 at 09:00 Furosemide (Lasix) 10 mg PRN DAILY PRN PO LE swelling Last administered on 03/07/19at 08:51; Start 03/05/19 at 13:15 Sodium Chloride 100 meq/Potassium Chloride 80 meq/ Potassium Phosphate 16 mmol/ Magnesium Sulfate 15 meq/Calcium Gluconate 12 meq/ Multivitamins 10 ml/Chromium/ Copper/Manganese/ Seleni/Zn 1 ml/ Total Parenteral Nutrition/Amino Acids/Dextrose/ Fat Emulsion Intravenous 1,512 ml @ 63 mls/hr TPN CONT IV Last administered on 03/05/19at 22:25; Start 03/05/19 at 22:00; Stop 03/06/19 at 22:00; Status DC Sodium Chloride 100 meq/Potassium Chloride 80 meq/ Potassium Phosphate 16 mmol/ Magnesium Sulfate 15 meq/Calcium Gluconate 12 meq/ Multivitamins 10 ml/Chromium/ Copper/Manganese/ Seleni/Zn 1 ml/ Total Parenteral Nutrition/Amino Acids/Dextrose/ Fat Emulsion Intravenous 1,512 ml @ 63 mls/hr TPN CONT IV Last administered on 03/06/19at 23:35; Start 03/06/19 at 22:00; Stop 03/07/19 at 21:59 Active Scripts Active Reported [dilaudid liquid] 1.5 Mg PO PRN Q8HRS PRN [ferous sulfate] Mg PO DAILY [vitamin B12 inject.] MONTHLY Vitamin D3 (Cholecalciferol (Vitamin D3)) 5,000 Unit Tablet 5,000 Unit PO WEEKLY Tablet (Pnv Cmb#95/Ferrous Fumarate/Fa) 1 Each Tablet 1 Tab PO DAILY Benadryl (Diphenhydramine Hcl) 25 Mg Capsule 25 Mg PO PRN Q4-6HRS PRN Zofran Odt (Ondansetron) 4 Mg Tab.rapdis 4 Mg PO BID PRN Biotin 10,000 Mcg Tab.rapdis 10,000 Mcg PO DAILY Simethicone 125 Mg Capsule 125 Mg PO PRN DAILY PRN Pantoprazole Sodium 40 Mg Tablet.dr 40 Mg PO DAILY Clonazepam 1 Mg Tablet 1 Tab PO PRN BID PRN Vitals/I & O Vital Sign - Last 24 Hours 03/06/19 03/06/19 03/06/19 03/06/19 11:00 12:29 15:00 15:29 Temp 98.1 98.2 98.1 98.2 Pulse 93 94 Resp 16 16 B/P (MAP) 122/77 (92) 138/85 (102) Pulse Ox 99 97 O2 Delivery Room Air Room Air Room Air Room Air 03/06/19 03/06/19 03/06/19 03/06/19 18:11 19:00 19:50 21:17 Temp 97.8 97.8 Pulse 87 Resp 18 20 B/P (MAP) 120/77 (91) Pulse Ox 94 O2 Delivery Room Air Room Air Room Air Room Air 03/06/19 03/07/19 03/07/19 03/07/19 23:00 00:26 03:00 03:31 Temp 97.4 97.5 97.4 97.5 Pulse 78 79 Resp 18 20 18 20 B/P (MAP) 119/75 (90) 125/79 (94) Pulse Ox 95 98 O2 Delivery Room Air Room Air Room Air Room Air 03/07/19 03/07/19 03/07/19 03/07/19 04:01 06:43 07:00 08:00 Temp 97.9 97.9 Pulse 90 Resp 20 20 18 B/P (MAP) 140/87 (104) Pulse Ox 98 O2 Delivery Room Air Room Air Room Air 03/07/19 03/07/19 08:51 09:12 O2 Delivery Room Air Room Air Intake and Output 03/06/19 03/06/19 03/07/19 15:00 23:00 07:00 Intake Total 1612 ml Balance 1612 ml ALEJANDRO PRINCE III DO Mar 07, 2019 09:43
[2019-03-07 11:00] VITALS: BP 140/96
--- NOTE | 2019-03-07 11:17 | PDOC ---
Subjective: Subjective: Keeping small amounts of liquids down, very little ostomy output, would like to go home - her has the day off and could pick her up. Objective: Objective: D/w RN - pt wants to go home and not to rehab, primary wants to know what to do about TPN. Vital Signs: Vital Signs Date Time Temp Pulse Resp B/P (MAP) Pulse Ox O2 Delivery O2 Flow Rate FiO2 03/07/19 09:12 Room Air 03/07/19 07:00 97.9 90 18 140/87 (104) 98 97.9 Labs: Laboratory Tests Test 03/07/19 06:40 White Blood Count 13.5 x10^3/uL Red Blood Count 3.76 x10^6/uL Hemoglobin 11.8 g/dL Hematocrit 35.6 % Mean Corpuscular Volume 95 fL Mean Corpuscular Hemoglobin 32 pg Mean Corpuscular Hemoglobin Concent 33 g/dL Red Cell Distribution Width 13.3 % Platelet Count 227 x10^3/uL Neutrophils (%) (Auto) 74 % Lymphocytes (%) (Auto) 19 % Monocytes (%) (Auto) 7 % Eosinophils (%) (Auto) 0 % Basophils (%) (Auto) 0 % Neutrophils # (Auto) 10.0 x10^3uL Lymphocytes # (Auto) 2.5 x10^3/uL Monocytes # (Auto) 0.9 x10^3/uL Eosinophils # (Auto) 0.1 x10^3/uL Basophils # (Auto) 0.0 x10^3/uL Sodium Level 138 mmol/L Potassium Level 3.5 mmol/L Chloride Level 102 mmol/L Carbon Dioxide Level 33 mmol/L Anion Gap 3 Blood Urea Nitrogen 11 mg/dL Creatinine 0.8 mg/dL Estimated GFR (Cockcroft-Gault) 79.9 Glucose Level 116 mg/dL Calcium Level 8.2 mg/dL Phosphorus Level 3.6 mg/dL Magnesium Level 1.8 mg/dL PE: GEN: NAD - walking the barkley, NG out NEURO/PSYCH: A & O 3 A/P: Chronic abd pain, intermittent obstructive symptoms H/o Crohn's, multiple surgeries -- Tolerating small amounts of liquids w/o NG. Stop TPN, DC per primary - can send on prednisone and Protonix. She had questions about hernia repair yesterday - would recommend another opinion re: her chronic issues - if unable to stay hydrated as an outpt, could go to [facility] ER. MARIA EUGENIA MO Mar 07, 2019 11:17
--- NOTE | 2019-03-07 11:47 | NUR ---
SW following. Discussed with RNANGELA okay to DC TPN today. Pt to discharge home after trying no TPN, likely tomorrow (03/08/19). SW will continue to follow for any discharge planning needs.
[2019-03-07 15:00] VITALS: BP 137/90
[2019-03-07 19:15] VITALS: BP 128/80
[2019-03-07 23:05] VITALS: BP 122/71
[2019-03-08] MEDS: ONDANSETRON PF 4 MG/2 ML VIAL. IV PRN ×2 (02:57→09:58)
[2019-03-08] MEDS: HYDROmorphone 2 MG/ML VIAL IV PRN ×3 (02:57→09:14)
[2019-03-08] MEDS: diphenhydrAMINE 50 MG/ML VIAL IVP PRN ×2 (02:57→09:58)
[2019-03-08 03:01] VITALS: BP 123/76
[2019-03-08] MEDS: PANTOPRAZOLE 40 MG TABLET.DR. PO SCH (06:14)
[2019-03-08 06:42] LABS: CALCIUM 8.3 mg/dL (8.5-10.1); GFR 61.7; POTASSIUM 3.3 mmol/L (3.5-5.1)
[2019-03-08 07:00] VITALS: BP 131/80
[2019-03-08 07:20] LABS: BASO % 0 % (0-3); EOS # 0.1 x10^3/uL (0.0-0.7); EOS % 1 % (0-3); HEMATOCRIT 35.8 % (36.0-47.0); HEMOGLOBIN 12.1 g/dL (12.0-15.5); LYMPH # 2.4 x10^3/uL (1.0-4.8); LYMPH % 24 % (24-48); MEAN CORPUSCULAR HEMOGLOBIN 32 pg (25-35); MEAN CORPUSCULAR HGB CONC 34 g/dL (31-37); MEAN CORPUSCULAR VOLUME 95 fL (79-100); MONO # 0.8 x10^3/uL (0.0-1.1); MONO % 7 % (0-9); NEUT % 68 % (31-73); PLATELET COUNT 206 x10^3/uL (140-400); RED BLOOD COUNT 3.77 x10^6/uL (3.50-5.40); RED CELL DISTRIBUTION WIDTH 13.3 % (11.5-14.5); WHITE BLOOD COUNT 10.3 x10^3/uL (4.0-11.0)
[2019-03-08] MEDS ORDERED: POTASSIUM CHLORIDE 20 MEQ TABLET.ER. PO ONE (08:00)
[2019-03-08] MEDS: predniSONE 20 MG TABLET PO SCH (08:23)
--- NOTE | 2019-03-08 09:31 | PDOC ---
Subjective: Subjective: Already feels weak off of TPN, taking just a little liquids, not much ostomy output. Wants to go home, says "this just takes time." Objective: Vital Signs: Vital Signs Date Time Temp Pulse Resp B/P (MAP) Pulse Ox O2 Delivery O2 Flow Rate FiO2 03/08/19 09:14 99 Room Air 03/08/19 07:00 98.4 100 18 131/80 (97) 98.4 Labs: Laboratory Tests Test 03/08/19 06:20 White Blood Count 10.3 x10^3/uL Red Blood Count 3.77 x10^6/uL Hemoglobin 12.1 g/dL Hematocrit 35.8 % Mean Corpuscular Volume 95 fL Mean Corpuscular Hemoglobin 32 pg Mean Corpuscular Hemoglobin Concent 34 g/dL Red Cell Distribution Width 13.3 % Platelet Count 206 x10^3/uL Neutrophils (%) (Auto) 68 % Lymphocytes (%) (Auto) 24 % Monocytes (%) (Auto) 7 % Eosinophils (%) (Auto) 1 % Basophils (%) (Auto) 0 % Neutrophils # (Auto) 7.0 x10^3uL Lymphocytes # (Auto) 2.4 x10^3/uL Monocytes # (Auto) 0.8 x10^3/uL Eosinophils # (Auto) 0.1 x10^3/uL Basophils # (Auto) 0.0 x10^3/uL Sodium Level 140 mmol/L Potassium Level 3.3 mmol/L Chloride Level 103 mmol/L Carbon Dioxide Level 33 mmol/L Anion Gap 4 Blood Urea Nitrogen 11 mg/dL Creatinine 1.0 mg/dL Estimated GFR (Cockcroft-Gault) 61.7 Glucose Level 85 mg/dL Calcium Level 8.3 mg/dL PE: GEN: NAD LUNGS: CTAB HEART: RRR ABD: quieter BS today NEURO/PSYCH: A & O 3, calm A/P: Crohn's disease, chronic pain -- DC per primary, recommend following-up w/ [facility]. MARIA EUGENIA MO Mar 08, 2019 09:31
[2019-03-08] MEDS ORDERED: HEPARIN PF 500 UNIT/5 ML DISP.SYRIN. IV ONE (10:45)
--- NOTE | 2019-03-08 10:57 | NUR ---
Discharge Note: MATTHEW HOLGUIN Discharge instructions and discharge home medications reviewed with Patient and a copy given. All questions have been answered and understanding verbalized. The following instructions and handouts were given: information about small bowel obstruction, follow up. Discontinued lines and drains: injected port with heparin and then de-accessed port-a-cath, gauze and band-aid applied. Patient discharged to home with self care with spouse, patient ambulated to discharge vehicle.
--- NOTE | 2019-03-08 11:09 | PDOC ---
PROGRESS NOTES Chief Complaint Chief Complaint Abdominal pain History of Present Illness History of Present Illness Patient was resting in bed today. Her was present in the room. Her NG tube has been removed. She is ready to go home today. Vitals Vitals Vital Signs Date Time Temp Pulse Resp B/P (MAP) Pulse Ox O2 Delivery O2 Flow Rate FiO2 03/08/19 09:51 99 Room Air 03/08/19 07:00 98.4 100 18 131/80 (97) 98.4 Physical Exam General: Alert, Oriented X3, Cooperative, No acute distress Heart: Regular rate, Normal S1, Normal S2, No murmurs Lungs: Clear (No wheezes, rales, or rhonchi) Abdomen: Soft, No masses, Other (Mild tenderness) Extremities: Normal pulses, No tenderness/swelling, Other (Mild edema and bruising in her LEs) Skin: No rashes, No breakdown, No significant lesion Labs LABS Laboratory Tests Test 03/08/19 06:20 White Blood Count 10.3 x10^3/uL (4.0-11.0) Red Blood Count 3.77 x10^6/uL (3.50-5.40) Hemoglobin 12.1 g/dL (12.0-15.5) Hematocrit 35.8 % (36.0-47.0) Mean Corpuscular Volume 95 fL (79-100) Mean Corpuscular Hemoglobin 32 pg (25-35) Mean Corpuscular Hemoglobin Concent 34 g/dL (31-37) Red Cell Distribution Width 13.3 % (11.5-14.5) Platelet Count 206 x10^3/uL (140-400) Neutrophils (%) (Auto) 68 % (31-73) Lymphocytes (%) (Auto) 24 % (24-48) Monocytes (%) (Auto) 7 % (0-9) Eosinophils (%) (Auto) 1 % (0-3) Basophils (%) (Auto) 0 % (0-3) Neutrophils # (Auto) 7.0 x10^3uL (1.8-7.7) Lymphocytes # (Auto) 2.4 x10^3/uL (1.0-4.8) Monocytes # (Auto) 0.8 x10^3/uL (0.0-1.1) Eosinophils # (Auto) 0.1 x10^3/uL (0.0-0.7) Basophils # (Auto) 0.0 x10^3/uL (0.0-0.2) Sodium Level 140 mmol/L (136-145) Potassium Level 3.3 mmol/L (3.5-5.1) Chloride Level 103 mmol/L (98-107) Carbon Dioxide Level 33 mmol/L (21-32) Anion Gap 4 (6-14) Blood Urea Nitrogen 11 mg/dL (7-20) Creatinine 1.0 mg/dL (0.6-1.0) Estimated GFR (Cockcroft-Gault) 61.7 Glucose Level 85 mg/dL (70-99) Calcium Level 8.3 mg/dL (8.5-10.1) Review of Systems Review of Systems Patient denies fevers, chills, N/V, CP, SOB Assessment and Plan Assessmemt and Plan Problems Medical Problems: (1) Partial small bowel obstruction Status: Acute Assessment: H/o Crohn's, multiple abd surgeries ( at least 20 x ex lap - mid umbilical scar) Indwelling left sided colostomy N/v, abd pain, decreased ostomy output, weight loss Chronic pain LE swelling Hypokalemia Plan: NG tube removed Off TPN PO meds Encourage advancing diet 40 meq KCl PO (3.3) F/u labs Continue home meds PT/OT Ambulation for DVT prophylaxis DC today to home Comment Review of Relevant I have reviewed the following items kathy (where applicable) has been applied. Labs Laboratory Tests Test 03/07/19 06:40 03/08/19 06:20 White Blood Count 13.5 x10^3/uL (4.0-11.0) 10.3 x10^3/uL (4.0-11.0) Red Blood Count 3.76 x10^6/uL (3.50-5.40) 3.77 x10^6/uL (3.50-5.40) Hemoglobin 11.8 g/dL (12.0-15.5) 12.1 g/dL (12.0-15.5) Hematocrit 35.6 % (36.0-47.0) 35.8 % (36.0-47.0) Mean Corpuscular Volume 95 fL (79-100) 95 fL (79-100) Mean Corpuscular Hemoglobin 32 pg (25-35) 32 pg (25-35) Mean Corpuscular Hemoglobin Concent 33 g/dL (31-37) 34 g/dL (31-37) Red Cell Distribution Width 13.3 % (11.5-14.5) 13.3 % (11.5-14.5) Platelet Count 227 x10^3/uL (140-400) 206 x10^3/uL (140-400) Neutrophils (%) (Auto) 74 % (31-73) 68 % (31-73) Lymphocytes (%) (Auto) 19 % (24-48) 24 % (24-48) Monocytes (%) (Auto) 7 % (0-9) 7 % (0-9) Eosinophils (%) (Auto) 0 % (0-3) 1 % (0-3) Basophils (%) (Auto) 0 % (0-3) 0 % (0-3) Neutrophils # (Auto) 10.0 x10^3uL (1.8-7.7) 7.0 x10^3uL (1.8-7.7) Lymphocytes # (Auto) 2.5 x10^3/uL (1.0-4.8) 2.4 x10^3/uL (1.0-4.8) Monocytes # (Auto) 0.9 x10^3/uL (0.0-1.1) 0.8 x10^3/uL (0.0-1.1) Eosinophils # (Auto) 0.1 x10^3/uL (0.0-0.7) 0.1 x10^3/uL (0.0-0.7) Basophils # (Auto) 0.0 x10^3/uL (0.0-0.2) 0.0 x10^3/uL (0.0-0.2) Sodium Level 138 mmol/L (136-145) 140 mmol/L (136-145) Potassium Level 3.5 mmol/L (3.5-5.1) 3.3 mmol/L (3.5-5.1) Chloride Level 102 mmol/L (98-107) 103 mmol/L (98-107) Carbon Dioxide Level 33 mmol/L (21-32) 33 mmol/L (21-32) Anion Gap 3 (6-14) 4 (6-14) Blood Urea Nitrogen 11 mg/dL (7-20) 11 mg/dL (7-20) Creatinine 0.8 mg/dL (0.6-1.0) 1.0 mg/dL (0.6-1.0) Estimated GFR (Cockcroft-Gault) 79.9 61.7 Glucose Level 116 mg/dL (70-99) 85 mg/dL (70-99) Calcium Level 8.2 mg/dL (8.5-10.1) 8.3 mg/dL (8.5-10.1) Phosphorus Level 3.6 mg/dL (2.6-4.7) Magnesium Level 1.8 mg/dL (1.8-2.4) Laboratory Tests Test 03/08/19 06:20 White Blood Count 10.3 x10^3/uL (4.0-11.0) Red Blood Count 3.77 x10^6/uL (3.50-5.40) Hemoglobin 12.1 g/dL (12.0-15.5) Hematocrit 35.8 % (36.0-47.0) Mean Corpuscular Volume 95 fL (79-100) Mean Corpuscular Hemoglobin 32 pg (25-35) Mean Corpuscular Hemoglobin Concent 34 g/dL (31-37) Red Cell Distribution Width 13.3 % (11.5-14.5) Platelet Count 206 x10^3/uL (140-400) Neutrophils (%) (Auto) 68 % (31-73) Lymphocytes (%) (Auto) 24 % (24-48) Monocytes (%) (Auto) 7 % (0-9) Eosinophils (%) (Auto) 1 % (0-3) Basophils (%) (Auto) 0 % (0-3) Neutrophils # (Auto) 7.0 x10^3uL (1.8-7.7) Lymphocytes # (Auto) 2.4 x10^3/uL (1.0-4.8) Monocytes # (Auto) 0.8 x10^3/uL (0.0-1.1) Eosinophils # (Auto) 0.1 x10^3/uL (0.0-0.7) Basophils # (Auto) 0.0 x10^3/uL (0.0-0.2) Sodium Level 140 mmol/L (136-145) Potassium Level 3.3 mmol/L (3.5-5.1) Chloride Level 103 mmol/L (98-107) Carbon Dioxide Level 33 mmol/L (21-32) Anion Gap 4 (6-14) Blood Urea Nitrogen 11 mg/dL (7-20) Creatinine 1.0 mg/dL (0.6-1.0) Estimated GFR (Cockcroft-Gault) 61.7 Glucose Level 85 mg/dL (70-99) Calcium Level 8.3 mg/dL (8.5-10.1) Medications Current Medications Hydromorphone HCl (Dilaudid) 0.5 mg 1X ONCE IV Last administered on 02/21/19at 22:47; Start 02/21/19 at 22:30; Stop 02/21/19 at 22:31; Status DC Ondansetron HCl (Zofran) 4 mg 1X ONCE IV Last administered on 02/21/19at 22:46; Start 02/21/19 at 22:30; Stop 02/21/19 at 22:31; Status DC Sodium Chloride (NORMAL SALINE FLUSH for STERILE FIELD) 10 ml Cartela AB-zulily ONCE .ROUTE ; Start 02/21/19 at 22:22; Stop 02/21/19 at 22:23; Status DC Hydromorphone HCl (Dilaudid) 0.5 mg 1X ONCE IV Last administered on 02/22/19at 00:12; Start 02/22/19 at 00:00; Stop 02/22/19 at 00:01; Status DC Ondansetron HCl (Zofran) 4 mg 1X ONCE IV Last administered on 02/22/19at 00:12; Start 02/22/19 at 00:00; Stop 02/22/19 at 00:01; Status DC Ondansetron HCl (Zofran) 4 mg PRN Q8HRS PRN IV NAUSEA/VOMITING 1ST CHOICE Last administered on 02/22/19at 04:20; Start 02/22/19 at 00:00; Stop 02/22/19 at 09:33; Status DC Morphine Sulfate (Morphine Sulfate) 4 mg PRN Q2HR PRN IV SEVERE PAIN; Start 02/22/19 at 00:00; Stop 02/22/19 at 04:50; Status DC Benzocaine (Hurricaine One) 1 spray 1X ONCE MM Last administered on 02/22/19at 00:12; Start 02/22/19 at 00:30; Stop 02/22/19 at 00:31; Status DC Hydromorphone HCl (Dilaudid) 1.5 mg PRN Q6HRS PRN IV SEVERE PAIN Last administered on 02/22/19at 08:11; Start 02/22/19 at 01:30; Stop 02/22/19 at 12:21; Status DC Sodium Chloride 1,000 ml @ 125 mls/hr Q8H IV Last administered on 02/22/19at 06:03; Start 02/22/19 at 06:00; Stop 02/22/19 at 09:33; Status DC Hydromorphone HCl (Dilaudid) 1 mg 1X ONCE IV Last administered on 02/22/19at 06:02; Start 02/22/19 at 06:00; Stop 02/22/19 at 06:01; Status DC Ondansetron HCl (Zofran) 4 mg PRN Q6HRS PRN IV NAUSEA/VOMITING 1ST CHOICE Last administered on 03/08/19at 09:58; Start 02/22/19 at 09:45; Stop 03/08/19 at 10:59; Status DC Diphenhydramine HCl (Benadryl) 25 mg PRN QHS PRN IVP sleep Last administered on 02/22/19at 12:45; Start 02/22/19 at 09:45; Stop 02/22/19 at 18:41; Status DC Potassium Chloride/Dextrose/ Sod Cl 1,000 ml @ 100 mls/hr 1X ONCE IV Last administered on 02/22/19at 10:51; Start 02/22/19 at 10:30; Stop 02/22/19 at 20:29; Status DC Pantoprazole Sodium (PROTONIX VIAL for IV PUSH) 40 mg DAILYAC IVP Last administered on 03/05/19at 05:32; Start 02/22/19 at 11:30; Stop 03/05/19 at 13:12; Status DC Methylprednisolone Sodium Succinate (SOLU-Medrol 40MG VIAL) 20 mg Q12HR IV Last administered on 02/26/19at 10:10; Start 02/22/19 at 12:00; Stop 02/26/19 at 12:28; Status DC Hydromorphone HCl (Dilaudid) 1.5 mg PRN Q4HRS PRN IV SEVERE PAIN Last administered on 02/23/19 21:12; Start 02/22/19 at 12:30; Stop 02/23/19 at 22:58; Status DC Diphenhydramine HCl (Benadryl) 25 mg PRN Q6HRS PRN IVP ITCHING Last administered on 03/08/19at 09:58; Start 02/22/19 at 12:45; Stop 03/08/19 at 10:59; Status DC Sodium Chloride 1,000 ml @ 100 mls/hr Q10H IV Last administered on 02/24/19 14:22; Start 02/22/19 at 22:00; Stop 02/25/19 at 10:25; Status DC Levofloxacin/ Dextrose 100 ml @ 100 mls/hr Q24H IV Last administered on 03/05/19at 21:37; Start 02/23/19 at 21:00; Stop 03/06/19 at 09:57; Status DC Hydromorphone HCl (Dilaudid) 2 mg PRN Q3HRS PRN IV SEVERE PAIN Last administered on 03/08/19 09:14; Start 02/23/19 at 22:55; Stop 03/08/19 at 10:59; Status DC Info (Tpn Per Pharmacy) 1 each PRN DAILY PRN MC SEE COMMENTS Last administered on 03/06/19 13:01; Start 02/24/19 at 08:15; Stop 03/07/19 at 11:40; Status DC Cyanocobalamin (Vitamin B-12) 1,000 mcg 1X STAT IM Last administered on 02/24/19 12:06; Start 02/24/19 at 10:05; Stop 02/24/19 at 10:08; Status DC Sodium Chloride 90 meq/Potassium Chloride 50 meq/ Potassium Phosphate 16 mmol/ Magnesium Sulfate 10 meq/Calcium Gluconate 10 meq/ Multivitamins 10 ml/Chromium/ Copper/Manganese/ Seleni/Zn 1 ml/ Total Parenteral Nutrition/Amino Acids/Dextrose/ Fat Emulsion Intravenous 1,512 ml @ 63 mls/hr TPN CONT IV Last administered on 02/24/19at 22:25; Start 02/24/19 at 22:00; Stop 02/26/19 at 00:37; Status DC Diphenhydramine HCl (Benadryl) 50 mg 1X ONCE IVP Last administered on 02/25/19at 02:16; Start 02/25/19 at 02:00; Stop 02/25/19 at 02:01; Status DC Sodium Chloride 90 meq/Potassium Chloride 50 meq/ Potassium Phosphate 16 mmol/ Magnesium Sulfate 15 meq/Calcium Gluconate 10 meq/ Multivitamins 10 ml/Chromium/ Copper/Manganese/ Seleni/Zn 1 ml/ Total Parenteral Nutrition/Amino Acids/Dextrose/ Fat Emulsion Intravenous 1,512 ml @ 63 mls/hr TPN CONT IV ; Start 02/25/19 at 22:00; Stop 02/26/19 at 21:59; Status DC Iohexol (Omnipaque 300 Mg/ml) 400 ml 1X ONCE PO ; Start 02/26/19 at 08:15; Stop 02/26/19 at 08:16; Status UNV Methylprednisolone Sodium Succinate (SOLU-Medrol 40MG VIAL) 20 mg DAILY IV Last administered on 03/05/19at 08:11; Start 02/27/19 at 09:00; Stop 03/05/19 at 13:12; Status DC Sodium Chloride 90 meq/Potassium Chloride 50 meq/ Potassium Phosphate 16 mmol/ Magnesium Sulfate 15 meq/Calcium Gluconate 10 meq/ Multivitamins 10 ml/Chromium/ Copper/Manganese/ Seleni/Zn 1 ml/ Total Parenteral Nutrition/Amino Acids/Dextrose/ Fat Emulsion Intravenous 1,512 ml @ 63 mls/hr TPN CONT IV Last administered on 02/26/19at 22:38; Start 02/26/19 at 22:00; Stop 02/27/19 at 21:59; Status DC Furosemide (Lasix) 10 mg DAILY IVP Last administered on 02/27/19at 08:36; Start 02/26/19 at 16:00; Stop 02/27/19 at 10:26; Status DC Iohexol (Omnipaque 300 Mg/ml) 400 ml 1X ONCE PO Last administered on 02/27/19at 10:00; Start 02/27/19 at 08:45; Stop 02/27/19 at 09:01; Status DC Sodium Chloride 90 meq/Potassium Chloride 50 meq/ Potassium Phosphate 16 mmol/ Magnesium Sulfate 15 meq/Calcium Gluconate 10 meq/ Multivitamins 10 ml/Chromium/ Copper/Manganese/ Seleni/Zn 1 ml/ Total Parenteral Nutrition/Amino Acids/Dextrose/ Fat Emulsion Intravenous 1,512 ml @ 63 mls/hr TPN CONT IV Last administered on 02/27/19at 22:59; Start 02/27/19 at 22:00; Stop 02/28/19 at 21:59; Status DC Iohexol (Omnipaque 300 Mg/ml) 400 ml 1X ONCE PO Last administered on 02/28/19at 09:45; Start 02/28/19 at 09:45; Stop 02/28/19 at 09:46; Status DC Potassium Chloride/Water 100 ml @ 100 mls/hr Q1H IV Last administered on 02/28at 14:34; Start 02/28/19 at 11:00; Stop 02/28/19 at 12:59; Status DC Sodium Chloride 90 meq/Potassium Chloride 60 meq/ Potassium Phosphate 16 mmol/ Magnesium Sulfate 15 meq/Calcium Gluconate 10 meq/ Multivitamins 10 ml/Chromium/ Copper/Manganese/ Seleni/Zn 1 ml/ Total Parenteral Nutrition/Amino Acids/Dextrose/ Fat Emulsion Intravenous 1,512 ml @ 63 mls/hr TPN CONT IV Last administered on 02/28/19at 22:10; Start 02/28/19 at 22:00; Stop 03/01/19 at 21:59; Status DC Furosemide (Lasix) 10 mg 1X ONCE IVP Last administered on 02/28/19at 15:15; Start 02/28/19 at 15:15; Stop 02/28/19 at 15:16; Status DC Furosemide (Lasix) 20 mg PRN DAILY PRN IVP lower extremity edema; Start 02/28/19 at 15:15; Stop 02/28/19 at 15:15; Status DC Furosemide (Lasix) 10 mg PRN DAILY PRN IVP lower extremity edema Last administered on 03/05/19at 08:11; Start 02/28/19 at 15:15; Stop 03/05/19 at 13:12; Status DC Sodium Chloride 90 meq/Potassium Chloride 60 meq/ Potassium Phosphate 16 mmol/ Magnesium Sulfate 15 meq/Calcium Gluconate 10 meq/ Multivitamins 10 ml/Chromium/ Copper/Manganese/ Seleni/Zn 1 ml/ Total Parenteral Nutrition/Amino Acids/Dextrose/ Fat Emulsion Intravenous 1,512 ml @ 63 mls/hr TPN CONT IV Last administered on 03/01/19at 22:28; Start 03/01/19 at 22:00; Stop 03/02/19 at 21:59; Status DC Sodium Chloride 110 meq/Potassium Chloride 60 meq/ Potassium Phosphate 16 mmol/ Magnesium Sulfate 15 meq/Calcium Gluconate 10 meq/ Multivitamins 10 ml/Chromium/ Copper/Manganese/ Seleni/Zn 1 ml/ Total Parenteral Nutrition/Amino Aci ds/Dextrose/ Fat Emulsion Intravenous 1,512 ml @ 63 mls/hr TPN CONT IV Last administered on 03/02/19at 22:39; Start 03/02/19 at 22:00; Stop 03/03/19 at 21:59; Status DC Sodium Chloride 100 meq/Potassium Chloride 80 meq/ Potassium Phosphate 16 mmol/ Magnesium Sulfate 15 meq/Calcium Gluconate 12 meq/ Multivitamins 10 ml/Chromium/ Copper/Manganese/ Seleni/Zn 1 ml/ Total Parenteral Nutrition/Amino Acids/Dextrose/ Fat Emulsion Intravenous 1,512 ml @ 63 mls/hr TPN CONT IV Last administered on 03/03/19at 23:28; Start 03/03/19 at 22:00; Stop 03/04/19 at 21:59; Status DC Potassium Chloride/Water 50 ml @ 50 mls/hr Q1H IV Last administered on 03/03/19at 17:00; Start 03/03/19 at 13:30; Stop 03/03/19 at 15:29; Status DC Sodium Chloride 100 meq/Potassium Chloride 80 meq/ Potassium Phosphate 16 mmol/ Magnesium Sulfate 15 meq/Calcium Gluconate 12 meq/ Multivitamins 10 ml/Chromium/ Copper/Manganese/ Seleni/Zn 1 ml/ Total Parenteral Nutrition/Amino Acids/Dextrose/ Fat Emulsion Intravenous 1,512 ml @ 63 mls/hr TPN CONT IV Last administered on 03/04/19at 22:19; Start 03/04/19 at 22:00; Stop 03/05/19 at 21:59; Status DC Pantoprazole Sodium (Protonix) 40 mg DAILYAC PO Last administered on 03/08/19at 06:14; Start 03/06/19 at 07:30; Stop 03/08/19 at 10:59; Status DC Prednisone (Prednisone) 20 mg DAILY PO Last administered on 03/08/19at 08:23; Start 03/06/19 at 09:00; Stop 03/08/19 at 10:59; Status DC Furosemide (Lasix) 10 mg PRN DAILY PRN PO LE swelling Last administered on 03/07/19at 08:51; Start 03/05/19 at 13:15; Stop 03/08/19 at 10:59; Status DC Sodium Chloride 100 meq/Potassium Chloride 80 meq/ Potassium Phosphate 16 mmol/ Magnesium Sulfate 15 meq/Calcium Gluconate 12 meq/ Multivitamins 10 ml/Chromium/ Copper/Manganese/ Seleni/Zn 1 ml/ Total Parenteral Nutrition/Amino Acids/Dextrose/ Fat Emulsion Intravenous 1,512 ml @ 63 mls/hr TPN CONT IV Last administered on 03/05/19at 22:25; Start 03/05/19 at 22:00; Stop 03/06/19 at 22:00; Status DC Sodium Chloride 100 meq/Potassium Chloride 80 meq/ Potassium Phosphate 16 mmol/ Magnesium Sulfate 15 meq/Calcium Gluconate 12 meq/ Multivitamins 10 ml/Chromium/ Copper/Manganese/ Seleni/Zn 1 ml/ Total Parenteral Nutrition/Amino Acids/Dextrose/ Fat Emulsion Intravenous 1,512 ml @ 63 mls/hr TPN CONT IV Last administered on 03/06/19at 23:35; Start 03/06/19 at 22:00; Stop 03/07/19 at 11:40; Status DC Potassium Chloride (Klor-Con) 40 meq 1X ONCE PO Last administered on 03/08/19at 08:23; Start 03/08/19 at 08:00; Stop 03/08/19 at 08:01; Status DC Heparin Sodium (Porcine) (Hep Lock Adult) 500 unit 1X ONCE IV Last administered on 03/08/19at 10:53; Start 03/08/19 at 10:45; Stop 03/08/19 at 10:46; Status DC Active Scripts Active Reported [dilaudid liquid] 1.5 Mg PO PRN Q8HRS PRN [ferous sulfate] Mg PO DAILY [vitamin B12 inject.] MONTHLY Vitamin D3 (Cholecalciferol (Vitamin D3)) 5,000 Unit Tablet 5,000 Unit PO WEEKLY Tablet (Pnv Cmb#95/Ferrous Fumarate/Fa) 1 Each Tablet 1 Tab PO DAILY Benadryl (Diphenhydramine Hcl) 25 Mg Capsule 25 Mg PO PRN Q4-6HRS PRN Zofran Odt (Ondansetron) 4 Mg Tab.rapdis 4 Mg PO BID PRN Biotin 10,000 Mcg Tab.rapdis 10,000 Mcg PO DAILY Simethicone 125 Mg Capsule 125 Mg PO PRN DAILY PRN Pantoprazole Sodium 40 Mg Tablet.dr 40 Mg PO DAILY Clonazepam 1 Mg Tablet 1 Tab PO PRN BID PRN Vitals/I & O Vital Sign - Last 24 Hours 03/07/19 03/07/19 03/07/19 03/07/19 11:48 14:54 15:00 18:00 Temp 97.7 97.7 Pulse 97 Resp 18 B/P (MAP) 137/90 (106) Pulse Ox 98 97 O2 Delivery Room Air Room Air Room Air Room Air 03/07/19 03/07/19 03/07/19 03/07/19 19:15 20:00 20:03 23:05 Temp 98.2 97.7 98.2 97.7 Pulse 81 84 Resp 18 16 B/P (MAP) 128/80 (96) 122/71 (88) Pulse Ox 97 97 96 O2 Delivery Room Air Room Air Room Air Room Air 03/07/19 03/08/19 03/08/19 03/08/19 23:49 02:57 03:01 06:14 Temp 97.8 97.8 Pulse 79 Resp 18 B/P (MAP) 123/76 (92) Pulse Ox 96 96 93 93 O2 Delivery Room Air Room Air Room Air Room Air 03/08/19 03/08/19 03/08/19 03/08/19 07:00 07:33 09:14 09:51 Temp 98.4 98.4 Pulse 100 Resp 18 B/P (MAP) 131/80 (97) Pulse Ox 99 99 99 O2 Delivery Room Air Room Air Room Air Room Air Intake and Output 03/07/19 03/07/19 03/08/19 15:00 23:00 07:00 Intake Total 180 ml 60 ml 240 ml Balance 180 ml 60 ml 240 ml ALEJANDRO PRINCE III DO Mar 08, 2019 11:09
--- NOTE | 2019-03-08 20:36 | DS ---
DATE OF DISCHARGE: 03/08/2019 ADMISSION DIAGNOSES: 1. Partial small-bowel obstruction. 2. History of Crohn's. DISCHARGE DIAGNOSES: 1. Resolving small-bowel obstruction. 2. History of Crohn's. CONSULTS: General Surgery and GI. PROCEDURES: None. HOSPITAL COURSE: The patient is a pleasant 39-year-old female who has had multiple surgeries for her Crohn's disease. Once again, she presented with a small-bowel obstruction. She has an ostomy as well. She was admitted. We had to place an, for over 10 days. We gave her p.r.n. Zofran and IV TPN. We were finally able to get the NG out yesterday. This morning, I saw and examined her, she was doing well. Her heart tones were normal. Her lungs were clear. Her abdomen was soft. The ostomy is functioning. We plan to discharge to home. DISPOSITION: Home. ACTIVITY: As tolerated. DIET: Low sodium. MEDICATIONS: Please see the MRAD. TOTAL TIME: 33 minutes. ALEJANDRO PRINCE DO DR: TY/ismael JOB#: [id number] / [id number]
== END 2019-03-08 10:57 | disposition home or self-care (01) | DRG 372 ==
LOC: ER 21:10 → 4 NORTH 23:52 → OBSVTOIN 23:53
PROVIDERS: ADMIT Family Medicine; ATTEND Family Medicine
PROC: 0D9670Z Drainage of Stomach with Drainage Device, Via Natural or Artificial Opening (ICD-10-PCS; principal; 2019-02-22)
DX: A04.9 Bacterial intestinal infection, unspecified (principal); K50.012 Crohn's disease of small intestine with intestinal obstruction; F11.20 Opioid dependence, uncomplicated; K56.7 Ileus, unspecified; G56.00 Carpal tunnel syndrome, unspecified upper limb; G89.29 Other chronic pain; F41.9 Anxiety disorder, unspecified; F32.9 Major depressive disorder, single episode, unspecified; E87.6 Hypokalemia; K66.0 Peritoneal adhesions (postprocedural) (postinfection); E86.0 Dehydration; Z93.3 Colostomy status; Z90.710 Acquired absence of both cervix and uterus; Z90.49 Acquired absence of other specified parts of digestive tract; Z91.19 Patient's noncompliance with other medical treatment and regimen; Z93.2 Ileostomy status
CPT/HCPCS: 36415; 74018; 74022; 74176; 74250; 80048; 80053; 81001; 83690; 83735; 84100; 84478; 85007; 85025; 85610; 85651; 86140; 96374; 96376; C9113; G0379; J0610; J1170; J1200; J1940; J1956; J2405; J2920; J3420; J3475; J3480; J7030; J7042; J7512; Q9967; 99285-25

== ENCOUNTER 2019-03-14 15:30 | Inpatient (IN) | payer OTHER, MEDICARE ==
[~2019-03-14] VITALS: Ht 170.2 cm; Wt 71.2 kg
[~2019-03-14 15:30] MED LIST changes: +CHOL500016 PO; +DILAUDID PO; +PNV1TABL25 PO; +VITAMIN B; +ferous sulfate PO
[2019-03-14] MEDS ORDERED: HYDROmorphone 2 MG/ML VIAL IV ONE ×3 (16:15→19:30)
--- NOTE | 2019-03-14 16:19 | PHYS DOC ---
Past Medical History Past Medical History: Abscess, Ovarian Cyst, P.I.D., Other Additional Past Medical Histor: Crohn's (ELINA WILSON MD) Past Surgical History: Appendectomy, Cholecystectomy, Hysterectomy, Oophorectomy, Other Additional Past Surgical Histo: Ilelostomy, oophorectomy, breast augmentation, multiple stoma revisions (ELINA WILSON MD) Alcohol Use: None Drug Use: None, Opiates (ELINA WILSON MD) Adult General Chief Complaint Chief Complaint: ABDOMINAL PAIN HPI HPI Patient is a 39-year-old female, with a past history of Crohn's disease, with an ileostomy, recently hospitalized here with a bowel obstruction, scheduled for surgery as an outpatient on 03/27 due to 2 hernia and scar tissue requiring revisions, who presents to the emergency department for evaluation. She states that she was discharged from this hospital this past Monday, and since she left, she has had persistent episodes of vomiting, with decreasing ostomy output. She does admit to a small amount of blood in her stool intermittently, but no significant or large amounts of blood have been present. She states that her main problem is been an inability to tolerate oral fluids, including her oral liquid Dilaudid, which she takes several times per day. She states that she has had increasing abdominal discomfort diffusely. She feels similar to when she was admitted to the hospital. She has not had any fevers or chills, denies any shortness of breath. There are no alleviating or exacerbating factors to her symptoms. (ELINA WILSON MD) Review of Systems Review of Systems Constitutional: Denies fever or chills [] Eyes: Denies change in visual acuity, redness, or eye pain [] HENT: Denies nasal congestion or sore throat [] Respiratory: Denies cough or shortness of breath [] Cardiovascular: The patient denies any shortness of breath, chest pain, palpitations, or orthopnea [] GI: No additional information not addressed in HPI [] : Denies dysuria or hematuria [] Musculoskeletal: Denies back pain or joint pain [] Integument: Denies rash or skin lesions [] Neurologic: Denies headache, focal weakness or sensory changes [] Endocrine: Denies polyuria or polydipsia [] All other systems were reviewed and found to be within normal limits, except as documented in this note. (ELINA WILSON MD) Current Medications Current Medications Current Medications Medications (Trade) Dose Ordered Sig/Jay Jay Start Time Stop Time Status Last Admin Dose Admin Hydromorphone HCl (Dilaudid) 1 mg 1X ONCE 03/14/19 17:15 03/14/19 17:16 DC 03/14/19 17:17 1 MG Ondansetron HCl (Zofran) 4 mg 1X ONCE 03/14/19 16:45 03/14/19 16:46 DC 03/14/19 16:25 4 MG Sodium Chloride 1,000 ml @ 1,000 mls/hr 1X ONCE 03/14/19 16:45 03/14/19 17:44 DC 03/14/19 16:49 1,000 MLS/HR (GOLLAPALLI,CARLITO E DO) Allergies Allergies Allergies Coded Allergies Type Severity Reaction Last Updated Verified Iodinated Contrast- Oral and IV Dye Allergy Severe Hives 08/20/14 Yes clindamycin Allergy Severe Hives, feeling of thickening of the throat 08/25/14 Yes morphine Allergy Severe Hives 02/22/19 Yes promethazine Allergy Severe ANAPHALAXIS 08/23/14 Yes amoxicillin Allergy Intermediate Cephalosporins OK 08/21/17 Yes fentanyl Allergy Intermediate 08/04/14 Yes ketorolac Allergy Intermediate 02/22/19 Yes metoclopramide Allergy Intermediate 08/04/14 Yes (GOLLAPALLI,CARLITO E DO) Physical Exam Physical Exam PHYSICAL EXAM: CONSTITUTIONAL: Well developed, well nourished HEAD: normocephalic, atraumatic EENT: PERRL, EOMI. Conjunctivae normal color, sclerae non-icteric; moist mucous membranes. NECK: Supple, non-tender; no meningismus. LUNGS: Lungs CTA, breathing even and unlabored. Normal air movement. HEART: Regular rate and rhythm, no murmur CHEST: No deformity; non-tender ABDOMEN: The abdomen is soft, bowel sounds are present, there is an ostomy in the left lower quadrant, there is mild diffuse tenderness to palpation of the abdomen, without focal tenderness, rebound, or guarding. EXTREM: Normal ROM; no deformity, no calf tenderness. Normal pulses palpable in all extremities. There is no pedal edema. SKIN: No rash; no diaphoresis NEURO: Alert; normal speech and cognition; CN's grossly intact; strength grossly intact without focal deficit. BACK: No CVA TTP. (ELINA WILSON MD) Current Patient Data Vital Signs Vital Signs Date Time Temp Pulse Resp B/P (MAP) Pulse Ox O2 Delivery O2 Flow Rate FiO2 03/14/19 18:43 131 119/84 (96) 99 Room Air 03/14/19 16:48 18 03/14/19 15:59 99.1 99.1 (GOLLAPALLI,CARLITO E DO) Lab Values Laboratory Tests Test 03/14/19 16:00 03/14/19 18:10 White Blood Count 9.8 x10^3/uL (4.0-11.0) Red Blood Count 4.82 x10^6/uL (3.50-5.40) Hemoglobin 15.0 g/dL (12.0-15.5) Hematocrit 45.1 % (36.0-47.0) Mean Corpuscular Volume 94 fL (79-100) Mean Corpuscular Hemoglobin 31 pg (25-35) Mean Corpuscular Hemoglobin Concent 33 g/dL (31-37) Red Cell Distribution Width 13.3 % (11.5-14.5) Platelet Count 280 x10^3/uL (140-400) Neutrophils (%) (Auto) 68 % (31-73) Lymphocytes (%) (Auto) 23 % (24-48) L Monocytes (%) (Auto) 7 % (0-9) Eosinophils (%) (Auto) 1 % (0-3) Basophils (%) (Auto) 1 % (0-3) Neutrophils # (Auto) 6.7 x10^3uL (1.8-7.7) Lymphocytes # (Auto) 2.2 x10^3/uL (1.0-4.8) Monocytes # (Auto) 0.7 x10^3/uL (0.0-1.1) Eosinophils # (Auto) 0.1 x10^3/uL (0.0-0.7) Basophils # (Auto) 0.1 x10^3/uL (0.0-0.2) Sodium Level 139 mmol/L (136-145) Potassium Level 3.5 mmol/L (3.5-5.1) Chloride Level 97 mmol/L (98-107) L Carbon Dioxide Level 27 mmol/L (21-32) Anion Gap 15 (6-14) H Blood Urea Nitrogen 11 mg/dL (7-20) Creatinine 1.3 mg/dL (0.6-1.0) H Estimated GFR (Cockcroft-Gault) 45.6 BUN/Creatinine Ratio 8 (6-20) Glucose Level 106 mg/dL (70-99) H Lactic Acid Level 2.8 mmol/L (0.4-2.0) H Calcium Level 9.5 mg/dL (8.5-10.1) Total Bilirubin 0.7 mg/dL (0.2-1.0) Aspartate Amino Transferase (AST) 32 U/L (15-37) Alanine Aminotransferase (ALT) 51 U/L (14-59) Alkaline Phosphatase 96 U/L (46-116) Total Protein 7.5 g/dL (6.4-8.2) Albumin 4.1 g/dL (3.4-5.0) Albumin/Globulin Ratio 1.2 (1.0-1.7) Lipase 258 U/L (73-393) Urine Collection Type Unknown Urine Color Yellow Urine Clarity Cloudy Urine pH 6.0 Urine Specific [place] 1.025 Urine Protein 100 mg/dL (NEG-TRACE) Urine Glucose (UA) Negative mg/dL (NEG) Urine Ketones (Stick) Trace mg/dL (NEG) Urine Blood Negative (NEG) Urine Nitrite Negative (NEG) Urine Bilirubin Negative (NEG) Urine Urobilinogen Dipstick 0.2 mg/dL (0.2 mg/dL) Urine Leukocyte Esterase Small (NEG) Urine RBC 0 /HPF (0-2) Urine WBC 5-10 /HPF (0-4) Urine Squamous Epithelial Cells Many /LPF Urine Amorphous Sediment Present /HPF Urine Bacteria Few /HPF (0-FEW) Urine Mucus Marked /LPF Laboratory Tests 03/14/19 16:00 Laboratory Tests 03/14/19 16:00 (CARLITO VIRGEN E ) Lab Values Laboratory Tests Test 03/14/19 16:00 White Blood Count 9.8 x10^3/uL (4.0-11.0) Red Blood Count 4.82 x10^6/uL (3.50-5.40) Hemoglobin 15.0 g/dL (12.0-15.5) Hematocrit 45.1 % (36.0-47.0) Mean Corpuscular Volume 94 fL (79-100) Mean Corpuscular Hemoglobin 31 pg (25-35) Mean Corpuscular Hemoglobin Concent 33 g/dL (31-37) Red Cell Distribution Width 13.3 % (11.5-14.5) Platelet Count 280 x10^3/uL (140-400) Neutrophils (%) (Auto) 68 % (31-73) Lymphocytes (%) (Auto) 23 % (24-48) L Monocytes (%) (Auto) 7 % (0-9) Eosinophils (%) (Auto) 1 % (0-3) Basophils (%) (Auto) 1 % (0-3) Neutrophils # (Auto) 6.7 x10^3uL (1.8-7.7) Lymphocytes # (Auto) 2.2 x10^3/uL (1.0-4.8) Monocytes # (Auto) 0.7 x10^3/uL (0.0-1.1) Eosinophils # (Auto) 0.1 x10^3/uL (0.0-0.7) Basophils # (Auto) 0.1 x10^3/uL (0.0-0.2) Sodium Level 139 mmol/L (136-145) Potassium Level 3.5 mmol/L (3.5-5.1) Chloride Level 97 mmol/L (98-107) L Carbon Dioxide Level 27 mmol/L (21-32) Anion Gap 15 (6-14) H Blood Urea Nitrogen 11 mg/dL (7-20) Creatinine 1.3 mg/dL (0.6-1.0) H Estimated GFR (Cockcroft-Gault) 45.6 BUN/Creatinine Ratio 8 (6-20) Glucose Level 106 mg/dL (70-99) H Calcium Level 9.5 mg/dL (8.5-10.1) Total Bilirubin Pending Aspartate Amino Transferase (AST) Pending Alanine Aminotransferase (ALT) Pending Alkaline Phosphatase Pending Total Protein Pending Albumin Pending Albumin/Globulin Ratio Pending Lipase Pending Laboratory Tests 03/14/19 16:00 Laboratory Tests 03/14/19 16:00 (ELINA WILSON MD) EKG EKG [Normal sinus rhythm at a rate of 126 beats for minute, normal axis, normal intervals, nonspecific ST/T changes.] (ELINA WILSON MD) Radiology/Procedures Radiology/Procedures [] (ELINA WILSON MD) Impressions: PROCEDURE: CT ABD PEL W/ORAL CONTRST ONLY CT ABD PEL W/ORAL CONTRST ONLY Indication: ABD PAIN H//O CHRON'S PT DRANK 1 BOTTLE OF VOLUMEN COLON RESECTION PREV SENT Exposure: One or more of the following individualized dose reduction techniques were utilized for this examination: 1. Automated exposure control 2. Adjustment of the mA and/or kV according to patient size 3. Use of iterative reconstruction technique. Comparison: February 21, 2019 Technique: No intravenous contrast given. No oral contrast per request. Findings: Evaluation of solid viscera, bowel and vasculature is compromised by the noncontrast technique. Pleural-based nodular opacity in the left lung base posteriorly and inferiorly is again identified. Definite abnormality of the liver. Spleen is not enlarged. Small low-density splenic lesion is stable. Pancreas demonstrates no adjacent inflammatory change or fluid. No evidence of adrenal mass. There is a nodule in the soft tissues below the spleen may represent accessory splenule, unchanged since prior study. Mass arising from the upper pole of the left kidney appears stable, measures greater than simple fluid density. There is some density within the left renal parenchyma which is unchanged. No evidence of hydronephrosis or obstructive calculus. Gallbladder surgically absent. No significant aortic aneurysm. No significant lymph node enlargement. Mild distention of small bowel loops this is less prominent than what what was seen on the previous study. Difficult to evaluate for small bowel wall thickening/inflammation due to the lack of oral contrast but there is no evidence of visible fatty stranding. Percutaneous gastrostomy tube is identified. No evidence of ascites. No evidence of free intraperitoneal gas. No destructive bone lesion. Partially seen breast implants are identified. IMPRESSION: 1. Mild distention of small bowel loops, possibly an ileus. Difficult to rule out small bowel wall thickening or inflammation without oral contrast, but there is no evidence of adjacent fatty stranding. 2. Hypodensity left renal lesions appear similar to the previous exam. Outpatient ultrasound could further evaluate if not already performed. 3. Pleural-based lung nodule in the inferior posterior left lower lobe appears stable. Recommendations as per prior study. Electronically signed by: Lorenzo Broussard MD (03/14/2019 6:11 PM) [facility] (CARLITO VIRGEN DO) Course & Med Decision Making Course & Med Decision Making 5:00PM: Pt care turned over to Dr Vee at shift change, pending some labs, imaging, and final disposition. Report given. Pertinent Labs and Imaging studies reviewed. (See chart for details) [] (ELINA WILSON MD) Course & Med Decision Making Care transferred from Dr. Wilson at shift change. waiting for CT results. Patient was recently admitted to the hospital on February 22, 2019. She was discharged on March 08, 2019. She has history of Crohn's, multiple abdominal surgeries. Patient states that since her discharge from the hospital she has not been able to hold anything down. Patient states that she cannot even hold her oral Dilaudid. Initial presentation shows a patient's heart rate was tachycardic. She is received 2 L of fluids already. She is on her third liter of fluid. Multiple pain medications IV given. Discussed case with Dr. Herrera who accepts admission. Discussed results of nonicteric patient. (CARLITO VIRGEN DO) Dragon Disclaimer Dragon Disclaimer This electronic medical record was generated, in whole or in part, using a voice recognition dictation system. (ELINA WILSON MD) Departure Departure Referrals: LELAND JOHNSTON (PCP) ELINA WILSON MD March 14, 2019 16:19 CARLITO VIRGEN DO March 14, 2019 18:26
[2019-03-14 16:33] LABS: BASO # 0.1 x10^3/uL (0.0-0.2); BASO % 1 % (0-3); EOS # 0.1 x10^3/uL (0.0-0.7); EOS % 1 % (0-3); HEMATOCRIT 45.1 % (36.0-47.0); LYMPH # 2.2 x10^3/uL (1.0-4.8); LYMPH % 23 % (24-48); MEAN CORPUSCULAR HEMOGLOBIN 31 pg (25-35); MEAN CORPUSCULAR HGB CONC 33 g/dL (31-37); MEAN CORPUSCULAR VOLUME 94 fL (79-100); MONO # 0.7 x10^3/uL (0.0-1.1); MONO % 7 % (0-9); NEUT # 6.7 x10^3uL (1.8-7.7); NEUT % 68 % (31-73); PLATELET COUNT 280 x10^3/uL (140-400); RED BLOOD COUNT 4.82 x10^6/uL (3.50-5.40); RED CELL DISTRIBUTION WIDTH 13.3 % (11.5-14.5); WHITE BLOOD COUNT 9.8 x10^3/uL (4.0-11.0)
[2019-03-14 16:42] LABS: CALCIUM 9.5 mg/dL (8.5-10.1); CREATININE 1.3 mg/dL (0.6-1.0); GFR 45.6; POTASSIUM 3.5 mmol/L (3.5-5.1)
[2019-03-14] MEDS ORDERED: IV NORMAL SALINE 1000ML BAG 1,000 ML IV ONE ×2 (16:45→19:00)
[2019-03-14] MEDS ORDERED: ONDANSETRON PF 4 MG/2 ML VIAL. IV ONE ×2 (16:45→19:45)
[2019-03-14] MEDS ORDERED: IV NORMAL SALINE 1000ML BAG 1,000 ML IV SCH (16:45)
[2019-03-14 16:48] LABS: ALBUMIN 4.1 g/dL (3.4-5.0); ALBUMIN/GLOBULIN RATIO 1.2 (1.0-1.7); TOTAL BILIRUBIN 0.7 mg/dL (0.2-1.0); TOTAL PROTEIN 7.5 g/dL (6.4-8.2)
--- NOTE | 2019-03-14 18:14 | RAD ---
CT ABD PEL W/ORAL CONTRST ONLY Indication: ABD PAIN H//O CHRON'S PT DRANK 1 BOTTLE OF VOLUMEN COLON RESECTION PREV SENT Exposure: One or more of the following individualized dose reduction techniques were utilized for this examination: 1. Automated exposure control 2. Adjustment of the mA and/or kV according to patient size 3. Use of iterative reconstruction technique. Comparison: February 21, 2019 Technique: No intravenous contrast given. No oral contrast per request. Findings: Evaluation of solid viscera, bowel and vasculature is compromised by the noncontrast technique. Pleural-based nodular opacity in the left lung base posteriorly and inferiorly is again identified. Definite abnormality of the liver. Spleen is not enlarged. Small low-density splenic lesion is stable. Pancreas demonstrates no adjacent inflammatory change or fluid. No evidence of adrenal mass. There is a nodule in the soft tissues below the spleen may represent accessory splenule, unchanged since prior study. Mass arising from the upper pole of the left kidney appears stable, measures greater than simple fluid density. There is some density within the left renal parenchyma which is unchanged. No evidence of hydronephrosis or obstructive calculus. Gallbladder surgically absent. No significant aortic aneurysm. No significant lymph node enlargement. Mild distention of small bowel loops this is less prominent than what what was seen on the previous study. Difficult to evaluate for small bowel wall thickening/inflammation due to the lack of oral contrast but there is no evidence of visible fatty stranding. Percutaneous gastrostomy tube is identified. No evidence of ascites. No evidence of free intraperitoneal gas. No destructive bone lesion. Partially seen breast implants are identified. IMPRESSION: 1. Mild distention of small bowel loops, possibly an ileus. Difficult to rule out small bowel wall thickening or inflammation without oral contrast, but there is no evidence of adjacent fatty stranding. 2. Hypodensity left renal lesions appear similar to the previous exam. Outpatient ultrasound could further evaluate if not already performed. 3. Pleural-based lung nodule in the inferior posterior left lower lobe appears stable. Recommendations as per prior study. Electronically signed by: Lorenzo Broussard MD (03/14/2019 6:11 PM) [facility]
[2019-03-14 18:17] LABS: BILIRUBIN,URINE NEGATIVE (NEG); CLARITY,URINE CLOUDY; COLOR,URINE YELLOW; NITRITE,URINE NEGATIVE (NEG); PROTEIN,URINE 100 mg/dL (NEG-TRACE); UROBILINOGEN,URINE 0.2 mg/dL (0.2 mg/dL)
[2019-03-14 18:24] LABS: BACTERIA,URINE FEW /HPF (0-FEW); RBC,URINE 0 /HPF (0-2); SQUAMOUS EPITHELIAL CELL,UR MANY /LPF
[2019-03-14 18:25] LABS: AMORPHOUS SEDIMENT,UR PRESENT /HPF
[2019-03-14] MEDS ORDERED: AMINO AC 3%/ELECTROLYTE/GLYCER 1,000 ML IV SCH (19:45)
--- NOTE | 2019-03-14 19:50 | PDOC1 ---
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 She has severe Crohn's disease and in fact has had most of her small bowel resected We just had her in last week with a Crohn's flare was severe small bowel obstr uction At that time we used an NG tube to suction her get for probably 10 days We were barely able to get the NG out and she was feeling somewhat better A Will get her home She called me today and explained her symptoms are returning she wanted me to set up home TPN I agreed to do that She states that she was scheduled to have surgery on the of this month at the [facility] [place] Between the time I spoke with her and now she decided clot into the emergency room because her symptoms are worsening She has nausea vomiting and severe bowel pain Rates her symptoms at 10 out of 10 she has associated anxiety She tried taking some home meds that didn't seem to help she simply vomits up everything she takes I discussed the case with ER physician wanted with patient and consult GI and general surgery and put her on PPN Past Medical/Surgical History: PMH/PSH: Past Medical History: Abscess, Ovarian Cyst, P.I.D., Other Additional Past Medical Histor: Crohn's Past Surgical History: Appendectomy, Cholecystectomy, Hysterectomy, Oophorec michelle, Other Additional Past Surgical Histo: Ilelostomy, oophorectomy, breast augmentation, multiple stoma revisions Allergies: Allergies: Coded Allergies: Iodinated Contrast- Oral and IV Dye (Verified Allergy, Severe, Hives, 08/20/14) clindamycin (Verified Allergy, Severe, Hives, feeling of thickening of the throat, 08/25/14) morphine (Verified Allergy, Severe, Hives, 02/22/19) TOLERATE HYDROMORPHONE promethazine (Verified Allergy, Severe, ANAPHALAXIS, 08/23/14) amoxicillin (Verified Allergy, Intermediate, Cephalosporins OK, 08/21/17) fentanyl (Verified Allergy, Intermediate, 08/04/14) ketorolac (Verified Allergy, Intermediate, 02/22/19) metoclopramide (Verified Allergy, Intermediate, 08/04/14) Family History: Family History: Diabetes Social History: Social Hisoty: She is on RN She does not drink smoke or take drugs Current Medications: Current Medications Current Medications Sodium Chloride 1,000 ml @ 1,000 mls/hr Q1H IV Last administered on 03/14/19at 16:22; Start 03/14/19 at 16:45; Stop 03/14/19 at 17:44; Status DC Hydromorphone HCl (Dilaudid) 2 mg 1X ONCE IV Last administered on 03/14/19at 16:26; Start 03/14/19 at 16:15; Stop 03/14/19 at 16:19; Status DC Ondansetron HCl (Zofran) 4 mg 1X ONCE IV Last administered on 03/14/19at 16:25; Start 03/14/19 at 16:45; Stop 03/14/19 at 16:46; Status DC Sodium Chloride 1,000 ml @ 1,000 mls/hr 1X ONCE IV Last administered on 03/14/19 16:49; Start 03/14/19 at 16:45; Stop 03/14/19 at 17:44; Status DC Hydromorphone HCl (Dilaudid) 1 mg 1X ONCE IV Last administered on 03/14/19 17:17; Start 03/14/19 at 17:15; Stop 03/14/19 at 17:16; Status DC Sodium Chloride 1,000 ml @ 1,000 mls/hr 1X ONCE IV Last administered on at 19:06; Start 03/14/19 at 19:00; Stop 03/14/19 at 19:59 Hydromorphone HCl (Dilaudid) 1 mg 1X ONCE IV Last administered on 03/14/19at 19:06; Start 03/14/19 at 19:30; Stop 03/14/19 at 19:31; Status DC Ondansetron HCl (Zofran) 4 mg 1X ONCE IV Last administered on 03/14/19 19:09; Start 03/14/19 at 19:45; Stop 03/14/19 at 19:46 Active Scripts Active Reported [dilaudid liquid] 1.5 Mg PO PRN Q8HRS PRN [ferous sulfate] Mg PO DAILY [vitamin B12 inject.] MONTHLY Vitamin D3 (Cholecalciferol (Vitamin D3)) 5,000 Unit Tablet 5,000 Unit PO WEEKLY Tablet (Pnv Cmb#95/Ferrous Fumarate/Fa) 1 Each Tablet 1 Tab PO DAILY Benadryl (Diphenhydramine Hcl) 25 Mg Capsule 25 Mg PO PRN Q4-6HRS PRN Zofran Odt (Ondansetron) 4 Mg Tab.rapdis 4 Mg PO BID PRN Biotin 10,000 Mcg Tab.rapdis 10,000 Mcg PO DAILY Simethicone 125 Mg Capsule 125 Mg PO PRN DAILY PRN Pantoprazole Sodium 40 Mg Tablet.dr 40 Mg PO DAILY Clonazepam 1 Mg Tablet 1 Tab PO PRN BID PRN ROS: Review of Systems Review of System REVIEW OF SYSTEMS: GENERAL: Denies weakness SKIN: No bruising, hair changes or rashes. EYES: No blurred, double or loss of vision. NOSE AND THROAT: No history of nosebleeds, hoarseness or sore throat. HEART: No history of palpitations, chest pain or shortness of breath on exertion. LUNGS: Denies cough, hemoptysis, wheezing or shortness of breath. GASTROINTESTINAL: She combines of severe abdominal pain distention nausea and vomiting GENITOURINARY: She combines a dysuria NEUROLOGIC: Denies history of numbness, tingling, tremor or weakness. PSYCHIATRIC: No history of panic, anxiety or depression. ENDOCRINE: No history of heat or cold intolerance, polyuria or polydipsia. EXTREMITIES: Denies muscle weakness, joint pain, pain on walking or stiffness. Physical Exam: Vital Signs: Vital Signs Date Time Temp Pulse Resp B/P (MAP) Pulse Ox O2 Delivery O2 Flow Rate FiO2 03/14/19 16:48 128 18 123/88 (100) 98 Room Air 03/14/19 15:59 99.1 99.1 Physcial Exam: GEN.: No apparent distress. Alert and oriented. HEENT: Head is normocephalic, atraumatic NECK: Supple, no JVD LUNGS: Clear to auscultation without rhonchi or wheezing HEART: RRR, S1, S2 present. Peripheral pulses intact ABDOMEN: Very tender distended her ostomy is in the left lower quadrant minimal output EXTREMITIES: Without any cyanosis, clubbing, or edema. Pedal pulses intact NEUROLOGIC: Normal speech, normal tone. A&O x 3 PSYCHIATRIC: Normal affect, normal mood. Stable SKIN: No ulcerations or rashes VASCULAR: Good capillary refill Labs: Labs: Laboratory Tests Test 03/14/19 16:00 03/14/19 18:10 White Blood Count 9.8 x10^3/uL (4.0-11.0) Red Blood Count 4.82 x10^6/uL (3.50-5.40) Hemoglobin 15.0 g/dL (12.0-15.5) Hematocrit 45.1 % (36.0-47.0) Mean Corpuscular Volume 94 fL (79-100) Mean Corpuscular Hemoglobin 31 pg (25-35) Mean Corpuscular Hemoglobin Concent 33 g/dL (31-37) Red Cell Distribution Width 13.3 % (11.5-14.5) Platelet Count 280 x10^3/uL (140-400) Neutrophils (%) (Auto) 68 % (31-73) Lymphocytes (%) (Auto) 23 % (24-48) Monocytes (%) (Auto) 7 % (0-9) Eosinophils (%) (Auto) 1 % (0-3) Basophils (%) (Auto) 1 % (0-3) Neutrophils # (Auto) 6.7 x10^3uL (1.8-7.7) Lymphocytes # (Auto) 2.2 x10^3/uL (1.0-4.8) Monocytes # (Auto) 0.7 x10^3/uL (0.0-1.1) Eosinophils # (Auto) 0.1 x10^3/uL (0.0-0.7) Basophils # (Auto) 0.1 x10^3/uL (0.0-0.2) Sodium Level 139 mmol/L (136-145) Potassium Level 3.5 mmol/L (3.5-5.1) Chloride Level 97 mmol/L (98-107) Carbon Dioxide Level 27 mmol/L (21-32) Anion Gap 15 (6-14) Blood Urea Nitrogen 11 mg/dL (7-20) Creatinine 1.3 mg/dL (0.6-1.0) Estimated GFR (Cockcroft-Gault) 45.6 BUN/Creatinine Ratio 8 (6-20) Glucose Level 106 mg/dL (70-99) Lactic Acid Level 2.8 mmol/L (0.4-2.0) Calcium Level 9.5 mg/dL (8.5-10.1) Total Bilirubin 0.7 mg/dL (0.2-1.0) Aspartate Amino Transf (AST/SGOT) 32 U/L (15-37) Alanine Aminotransferase (ALT/SGPT) 51 U/L (14-59) Alkaline Phosphatase 96 U/L (46-116) Total Protein 7.5 g/dL (6.4-8.2) Albumin 4.1 g/dL (3.4-5.0) Albumin/Globulin Ratio 1.2 (1.0-1.7) Lipase 258 U/L (73-393) Urine Collection Type Unknown Urine Color Yellow Urine Clarity Cloudy Urine pH 6.0 Urine Specific [place] 1.025 Urine Protein 100 mg/dL (NEG-TRACE) Urine Glucose (UA) Negative mg/dL (NEG) Urine Ketones (Stick) Trace mg/dL (NEG) Urine Blood Negative (NEG) Urine Nitrite Negative (NEG) Urine Bilirubin Negative (NEG) Urine Urobilinogen Dipstick 0.2 mg/dL (0.2 mg/dL) Urine Leukocyte Esterase Small (NEG) Urine RBC 0 /HPF (0-2) Urine WBC 5-10 /HPF (0-4) Urine Squamous Epithelial Cells Many /LPF Urine Amorphous Sediment Present /HPF Urine Bacteria Few /HPF (0-FEW) Urine Mucus Marked /LPF Laboratory Tests Test 03/14/19 16:00 03/14/19 18:10 White Blood Count 9.8 x10^3/uL (4.0-11.0) Red Blood Count 4.82 x10^6/uL (3.50-5.40) Hemoglobin 15.0 g/dL (12.0-15.5) Hematocrit 45.1 % (36.0-47.0) Mean Corpuscular Volume 94 fL (79-100) Mean Corpuscular Hemoglobin 31 pg (25-35) Mean Corpuscular Hemoglobin Concent 33 g/dL (31-37) Red Cell Distribution Width 13.3 % (11.5-14.5) Platelet Count 280 x10^3/uL (140-400) Neutrophils (%) (Auto) 68 % (31-73) Lymphocytes (%) (Auto) 23 % (24-48) Monocytes (%) (Auto) 7 % (0-9) Eosinophils (%) (Auto) 1 % (0-3) Basophils (%) (Auto) 1 % (0-3) Neutrophils # (Auto) 6.7 x10^3uL (1.8-7.7) Lymphocytes # (Auto) 2.2 x10^3/uL (1.0-4.8) Monocytes # (Auto) 0.7 x10^3/uL (0.0-1.1) Eosinophils # (Auto) 0.1 x10^3/uL (0.0-0.7) Basophils # (Auto) 0.1 x10^3/uL (0.0-0.2) Sodium Level 139 mmol/L (136-145) Potassium Level 3.5 mmol/L (3.5-5.1) Chloride Level 97 mmol/L (98-107) Carbon Dioxide Level 27 mmol/L (21-32) Anion Gap 15 (6-14) Blood Urea Nitrogen 11 mg/dL (7-20) Creatinine 1.3 mg/dL (0.6-1.0) Estimated GFR (Cockcroft-Gault) 45.6 BUN/Creatinine Ratio 8 (6-20) Glucose Level 106 mg/dL (70-99) Lactic Acid Level 2.8 mmol/L (0.4-2.0) Calcium Level 9.5 mg/dL (8.5-10.1) Total Bilirubin 0.7 mg/dL (0.2-1.0) Aspartate Amino Transf (AST/SGOT) 32 U/L (15-37) Alanine Aminotransferase (ALT/SGPT) 51 U/L (14-59) Alkaline Phosphatase 96 U/L (46-116) Total Protein 7.5 g/dL (6.4-8.2) Albumin 4.1 g/dL (3.4-5.0) Albumin/Globulin Ratio 1.2 (1.0-1.7) Lipase 258 U/L (73-393) Urine Collection Type Unknown Urine Color Yellow Urine Clarity Cloudy Urine pH 6.0 Urine Specific [place] 1.025 Urine Protein 100 mg/dL (NEG-TRACE) Urine Glucose (UA) Negative mg/dL (NEG) Urine Ketones (Stick) Trace mg/dL (NEG) Urine Blood Negative (NEG) Urine Nitrite Negative (NEG) Urine Bilirubin Negative (NEG) Urine Urobilinogen Dipstick 0.2 mg/dL (0.2 mg/dL) Urine Leukocyte Esterase Small (NEG) Urine RBC 0 /HPF (0-2) Urine WBC 5-10 /HPF (0-4) Urine Squamous Epithelial Cells Many /LPF Urine Amorphous Sediment Present /HPF Urine Bacteria Few /HPF (0-FEW) Urine Mucus Marked /LPF Images: Images 1. Mild distention of small bowel loops, possibly an ileus. Difficult to rule out small bowel wall thickening or inflammation without oral contrast, but there is no evidence of adjacent fatty stranding. 2. Hypodensity left renal lesions appear similar to the previous exam. Outpatient ultrasound could further evaluate if not already performed. 3. Pleural-based lung nodule in the inferior posterior left lower lobe appears stable. Recommendations as per prior study. Assessment/Plan Assessment/Plan Probable acute on chronic small bowel obstruction secondary to Crohn's Plan Full admit Consult GI and general surgery IV ProcalAmine Home meds if possible Frequent labs DVT prophylaxis Full code When necessary Zofran She may need an NG tube to suction Prognosis ALEJANDRO Burton III DO March 14, 2019 19:50
[2019-03-14 20:10] VITALS: BP 109/79
[2019-03-14] MEDS: diphenhydrAMINE 50 MG/ML VIAL IVP PRN (21:19)
[2019-03-14] MEDS: HYDROmorphone 2 MG/ML VIAL IV PRN (21:20)
[2019-03-14 23:00] VITALS: BP 109/79
[2019-03-15] MEDS: HYDROmorphone 2 MG/ML VIAL IV PRN ×10 (00:19→23:41)
[2019-03-15 03:00] VITALS: BP 112/81
[2019-03-15] MEDS: diphenhydrAMINE 50 MG/ML VIAL IVP PRN ×4 (03:24→21:26)
[2019-03-15] MEDS: ONDANSETRON PF 4 MG/2 ML VIAL. IV PRN ×2 (06:27→16:02)
--- NOTE | 2019-03-15 07:02 | EKG ---
[facility] [address] [place] [address] Test Date: 2019-03-14 Test Time: 16:47:43 Pat Name: MATTHEW HOLGUIN Department: Room: 3 1 Gender: F Director Machine: : 1980 Requested By: ELINA WHALEN Order Number: [id number] Reading MD: Ander Santoyo Measurements Intervals [place] Rate: 126 P: 79 NV: 132 QRS: 49 QRSD: 80 T: 48 QT: 302 QTc: 438 Interpretive Statements SINUS TACHYCARDIA NONSPECIFIC ST-T WAVE CHANGES. Electronically Signed On 03-15-2019 10:13:18 CDT by Ander Santoyo
[2019-03-15 07:10] VITALS: BP 126/89
--- NOTE | 2019-03-15 08:49 | PDOC2 ---
KERRIE CARL [employer]CHNICIAN 03/15/19 0849: CONSULT Date of Consult Date of Consult DATE: 03/15/19 TIME: 08:43 Reason for Consult Reason for Consult: SBO vs ileus Referring Physician Referring Physician: Dr Herrera Identification/Chief Complaint Chief Complaint vomiting, pain Source Source: Chart review, Patient History of Present Illness Reason for Visit: Patient known from previous admissions. Just discharged last Monday. SBO, ileus--Crohns disease, multiple surgeries, frequent admissions with obstructive symptoms Reports seen Dr Holt and plans for surgery 03/27-however she has not been able to keep anything down and pain has been significant Interested in starting TPN and getting home until her scheduled surgery Past Medical History Cardiovascular: No pertinent hx Pulmonary: No pertinent hx CENTRAL NERVOUS SYSTEM: Carpal Tunnel Syndrome GI: Other Heme/Onc: B12 deficiency Psych: No pertinent hx Musculoskeletal: low back pain Past Surgical History Past Surgical History: Appendectomy, Cholecystectomy, Hysterectomy, Colon Resection Family History Family History: Cancer Social History No ALCOHOL: none Lives: with Family Current Medications Current Medications Current Medications Sodium Chloride 1,000 ml @ 1,000 mls/hr Q1H IV Last administered on 03/14/19at 16:22; Start 03/14/19 at 16:45; Stop 03/14/19 at 17:44; Status DC Hydromorphone HCl (Dilaudid) 2 mg 1X ONCE IV Last administered on 03/14/19at 16:26; Start 03/14/19 at 16:15; Stop 03/14/19 at 16:19; Status DC Ondansetron HCl (Zofran) 4 mg 1X ONCE IV Last administered on 03/14/19at 16:25; Start 03/14/19 at 16:45; Stop 03/14/19 at 16:46; Status DC Sodium Chloride 1,000 ml @ 1,000 mls/hr 1X ONCE IV Last administered on 03/14/19at 16:49; Start 03/14/19 at 16:45; Stop 03/14/19 at 17:44; Status DC Hydromorphone HCl (Dilaudid) 1 mg 1X ONCE IV Last administered on 03/14/19at 17:17; Start 03/14/19 at 17:15; Stop 03/14/19 at 17:16; Status DC Sodium Chloride 1,000 ml @ 1,000 mls/hr 1X ONCE IV Last administered on 19:06; Start 03/14/19 at 19:00; Stop 03/14/19 at 19:59; Status DC Hydromorphone HCl (Dilaudid) 1 mg 1X ONCE IV Last administered on 03/14/19 19:06; Start 03/14/19 at 19:30; Stop 03/14/19 at 19:31; Status DC Ondansetron HCl (Zofran) 4 mg 1X ONCE IV Last administered on 03/14/19at 19:09; Start 03/14/19 at 19:45; Stop 03/14/19 at 19:46; Status DC Amino Acids/ Glycerin/ Electrolytes 1,000 ml @ 75 mls/hr [id number] IV Last administered on 03/14/19at 21:32; Start 03/14/19 at 19:45 Ondansetron HCl (Zofran) 4 mg PRN Q8HRS PRN IV NAUSEA/VOMITING Last administered on 03/15/19 06:27; Start 03/14/19 at 20:00; Stop 03/15/19 at 19:59 Hydromorphone HCl (Dilaudid) 1 mg PRN Q2HRS PRN IV pain Last administered on 03/15/19 06:27; Start 03/14/19 at 20:00 Diphenhydramine HCl (Benadryl) 50 mg PRN Q6HRS PRN IVP ITCHING Last administered on 03/15/19at 03:24; Start 03/14/19 at 21:15 Active Scripts Active Reported [dilaudid liquid] 1.5 Mg PO PRN Q8HRS PRN [ferous sulfate] Mg PO DAILY [vitamin B12 inject.] MONTHLY Vitamin D3 (Cholecalciferol (Vitamin D3)) 5,000 Unit Tablet 5,000 Unit PO WEEKLY Tablet (Pnv Cmb#95/Ferrous Fumarate/Fa) 1 Each Tablet 1 Tab PO DAILY Benadryl (Diphenhydramine Hcl) 25 Mg Capsule 25 Mg PO PRN Q4-6HRS PRN Zofran Odt (Ondansetron) 4 Mg Tab.rapdis 4 Mg PO BID PRN Biotin 10,000 Mcg Tab.rapdis 10,000 Mcg PO DAILY Simethicone 125 Mg Capsule 125 Mg PO PRN DAILY PRN Pantoprazole Sodium 40 Mg Tablet.dr 40 Mg PO DAILY Clonazepam 1 Mg Tablet 1 Tab PO PRN BID PRN Allergies Allergies: Coded Allergies: Iodinated Contrast- Oral and IV Dye (Verified Allergy, Severe, Hives, 08/20/14) clindamycin (Verified Allergy, Severe, Hives, feeling of thickening of the throat, 08/25/14) morphine (Verified Allergy, Severe, Hives, 02/22/19) TOLERATE HYDROMORPHONE promethazine (Verified Allergy, Severe, ANAPHALAXIS, 08/23/14) amoxicillin (Verified Allergy, Intermediate, Cephalosporins OK, 08/21/17) fentanyl (Verified Allergy, Intermediate, 08/04/14) ketorolac (Verified Allergy, Intermediate, 02/22/19) metoclopramide (Verified Allergy, Intermediate, 08/04/14) ROS General: No: Chills, Other (fevers) PSYCHOLOGICAL ROS: No: Anxiety, Depression Eyes: No Blurry vision, No Double vision HEENT: No: Heacaches, Sore Throat Hematological and Lymphatic: YES: Brusing; No: Bleeding Problems, Blood Clots Respiratory: No: Cough, Shortness of breath Cardiovascular: No Chest Pain, No Palpitations Gastrointestinal: Yes Other (see hpi) Genitourinary: YES Discharge (vaginal discharge at times ); No Dysuria, No Hematuria Musculoskeletal: No Joint Pain, No Muscle Pain Neurological: No Confusion, No Impaired Coord/balance Skin: No Pruritus, No Rash Physical Exam General: Alert, Oriented X3, Cooperative, No acute distress HEENT: PERRLA, Mucous membr. moist/pink Lungs: Clear to auscultation, Normal air movement Heart: Regular rate, Normal S1, Normal S2, No murmurs Abdomen: Soft, Other (tender lower abdomen, ostomy in place) Extremities: No clubbing, No cyanosis Skin: No rashes, No breakdown Neuro: Normal gait, Normal speech Psych/Mental Status: Mental status NL, Mood NL MUSCULOSKELETAL: No joint tenderness, No deformity Vitals VITALS Vital Signs Date Time Temp Pulse Resp B/P (MAP) Pulse Ox O2 Delivery O2 Flow Rate FiO2 03/15/19 07:10 98.2 100 18 126/89 (101) 98 Room Air 98.2 Labs Labs Laboratory Tests Test 03/14/19 16:00 03/14/19 18:10 White Blood Count 9.8 x10^3/uL (4.0-11.0) Red Blood Count 4.82 x10^6/uL (3.50-5.40) Hemoglobin 15.0 g/dL (12.0-15.5) Hematocrit 45.1 % (36.0-47.0) Mean Corpuscular Volume 94 fL (79-100) Mean Corpuscular Hemoglobin 31 pg (25-35) Mean Corpuscular Hemoglobin Concent 33 g/dL (31-37) Red Cell Distribution Width 13.3 % (11.5-14.5) Platelet Count 280 x10^3/uL (140-400) Neutrophils (%) (Auto) 68 % (31-73) Lymphocytes (%) (Auto) 23 % (24-48) Monocytes (%) (Auto) 7 % (0-9) Eosinophils (%) (Auto) 1 % (0-3) Basophils (%) (Auto) 1 % (0-3) Neutrophils # (Auto) 6.7 x10^3uL (1.8-7.7) Lymphocytes # (Auto) 2.2 x10^3/uL (1.0-4.8) Monocytes # (Auto) 0.7 x10^3/uL (0.0-1.1) Eosinophils # (Auto) 0.1 x10^3/uL (0.0-0.7) Basophils # (Auto) 0.1 x10^3/uL (0.0-0.2) Sodium Level 139 mmol/L (136-145) Potassium Level 3.5 mmol/L (3.5-5.1) Chloride Level 97 mmol/L (98-107) Carbon Dioxide Level 27 mmol/L (21-32) Anion Gap 15 (6-14) Blood Urea Nitrogen 11 mg/dL (7-20) Creatinine 1.3 mg/dL (0.6-1.0) Estimated GFR (Cockcroft-Gault) 45.6 BUN/Creatinine Ratio 8 (6-20) Glucose Level 106 mg/dL (70-99) Lactic Acid Level 2.8 mmol/L (0.4-2.0) Calcium Level 9.5 mg/dL (8.5-10.1) Total Bilirubin 0.7 mg/dL (0.2-1.0) Aspartate Amino Transf (AST/SGOT) 32 U/L (15-37) Alanine Aminotransferase (ALT/SGPT) 51 U/L (14-59) Alkaline Phosphatase 96 U/L (46-116) Total Protein 7.5 g/dL (6.4-8.2) Albumin 4.1 g/dL (3.4-5.0) Albumin/Globulin Ratio 1.2 (1.0-1.7) Lipase 258 U/L (73-393) Urine Collection Type Unknown Urine Color Yellow Urine Clarity Cloudy Urine pH 6.0 Urine Specific Power 1.025 Urine Protein 100 mg/dL (NEG-TRACE) Urine Glucose (UA) Negative mg/dL (NEG) Urine Ketones (Stick) Trace mg/dL (NEG) Urine Blood Negative (NEG) Urine Nitrite Negative (NEG) Urine Bilirubin Negative (NEG) Urine Urobilinogen Dipstick 0.2 mg/dL (0.2 mg/dL) Urine Leukocyte Esterase Small (NEG) Urine RBC 0 /HPF (0-2) Urine WBC 5-10 /HPF (0-4) Urine Squamous Epithelial Cells Many /LPF Urine Amorphous Sediment Present /HPF Urine Bacteria Few /HPF (0-FEW) Urine Mucus Marked /LPF Laboratory Tests Test 03/14/19 16:00 03/14/19 18:10 White Blood Count 9.8 x10^3/uL (4.0-11.0) Red Blood Count 4.82 x10^6/uL (3.50-5.40) Hemoglobin 15.0 g/dL (12.0-15.5) Hematocrit 45.1 % (36.0-47.0) Mean Corpuscular Volume 94 fL (79-100) Mean Corpuscular Hemoglobin 31 pg (25-35) Mean Corpuscular Hemoglobin Concent 33 g/dL (31-37) Red Cell Distribution Width 13.3 % (11.5-14.5) Platelet Count 280 x10^3/uL (140-400) Neutrophils (%) (Auto) 68 % (31-73) Lymphocytes (%) (Auto) 23 % (24-48) Monocytes (%) (Auto) 7 % (0-9) Eosinophils (%) (Auto) 1 % (0-3) Basophils (%) (Auto) 1 % (0-3) Neutrophils # (Auto) 6.7 x10^3uL (1.8-7.7) Lymphocytes # (Auto) 2.2 x10^3/uL (1.0-4.8) Monocytes # (Auto) 0.7 x10^3/uL (0.0-1.1) Eosinophils # (Auto) 0.1 x10^3/uL (0.0-0.7) Basophils # (Auto) 0.1 x10^3/uL (0.0-0.2) Sodium Level 139 mmol/L (136-145) Potassium Level 3.5 mmol/L (3.5-5.1) Chloride Level 97 mmol/L (98-107) Carbon Dioxide Level 27 mmol/L (21-32) Anion Gap 15 (6-14) Blood Urea Nitrogen 11 mg/dL (7-20) Creatinine 1.3 mg/dL (0.6-1.0) Estimated GFR (Cockcroft-Gault) 45.6 BUN/Creatinine Ratio 8 (6-20) Glucose Level 106 mg/dL (70-99) Lactic Acid Level 2.8 mmol/L (0.4-2.0) Calcium Level 9.5 mg/dL (8.5-10.1) Total Bilirubin 0.7 mg/dL (0.2-1.0) Aspartate Amino Transf (AST/SGOT) 32 U/L (15-37) Alanine Aminotransferase (ALT/SGPT) 51 U/L (14-59) Alkaline Phosphatase 96 U/L (46-116) Total Protein 7.5 g/dL (6.4-8.2) Albumin 4.1 g/dL (3.4-5.0) Albumin/Globulin Ratio 1.2 (1.0-1.7) Lipase 258 U/L (73-393) Urine Collection Type Unknown Urine Color Yellow Urine Clarity Cloudy Urine pH 6.0 Urine Specific Power 1.025 Urine Protein 100 mg/dL (NEG-TRACE) Urine Glucose (UA) Negative mg/dL (NEG) Urine Ketones (Stick) Trace mg/dL (NEG) Urine Blood Negative (NEG) Urine Nitrite Negative (NEG) Urine Bilirubin Negative (NEG) Urine Urobilinogen Dipstick 0.2 mg/dL (0.2 mg/dL) Urine Leukocyte Esterase Small (NEG) Urine RBC 0 /HPF (0-2) Urine WBC 5-10 /HPF (0-4) Urine Squamous Epithelial Cells Many /LPF Urine Amorphous Sediment Present /HPF Urine Bacteria Few /HPF (0-FEW) Urine Mucus Marked /LPF Assessment/Plan Assessment/Plan crohns agree with improving nutritional status would work toward DC home and FU as scheduled for her upcoming surgery no surgical plans here available as needed LEEANNE OLVERA MD 03/15/19 1222: CONSULT Assessment/Plan Assessment/Plan Pt seen and examined. Agree with Ms. Carl's note Pt with c/o nausea and fatigue, poor eating abd soft, ostomy in place agree with plan for TPN and surgery with Dr. Holt 03/27 Thanks for consult! KERRIE [employer]L [employer]CH[employer]ICIAN March 15, 2019 08:49 LEEANNE OLVERA MD March 15, 2019 12:22
[2019-03-15 10:56] VITALS: BP 113/78
[2019-03-15 11:25] LABS: CALCIUM 8.2 mg/dL (8.5-10.1); GFR 61.7; MAGNESIUM 1.6 mg/dL (1.8-2.4); PHOSPHORUS 3.4 mg/dL (2.6-4.7)
--- NOTE | 2019-03-15 11:37 | PDOC ---
PROGRESS NOTES Chief Complaint Chief Complaint Probable acute on chronic small bowel obstruction secondary to Crohn's B12 deficiency Hx of Carpal tunnel syndrome History of Present Illness History of Present Illness Patient seen and examined. Discussed with Nurse Ostomy site and prior surgical sites checked, clean with no inflammation Patient desires to have home TPN Vitals Vitals Vital Signs Date Time Temp Pulse Resp B/P (MAP) Pulse Ox O2 Delivery O2 Flow Rate FiO2 03/15/19 10:56 98.2 90 17 113/78 (90) 100 Room Air 98.2 Physical Exam General: Alert, Oriented X3, Cooperative, No acute distress Heart: Regular rate, Normal S1, Normal S2, No murmurs Lungs: Clear Abdomen: Soft, Other (tender lower abdomen, ostomy in place) Extremities: No clubbing, No cyanosis Skin: No rashes, No breakdown Labs LABS Laboratory Tests Test 03/14/19 16:00 03/14/19 18:10 White Blood Count 9.8 x10^3/uL (4.0-11.0) Red Blood Count 4.82 x10^6/uL (3.50-5.40) Hemoglobin 15.0 g/dL (12.0-15.5) Hematocrit 45.1 % (36.0-47.0) Mean Corpuscular Volume 94 fL (79-100) Mean Corpuscular Hemoglobin 31 pg (25-35) Mean Corpuscular Hemoglobin Concent 33 g/dL (31-37) Red Cell Distribution Width 13.3 % (11.5-14.5) Platelet Count 280 x10^3/uL (140-400) Neutrophils (%) (Auto) 68 % (31-73) Lymphocytes (%) (Auto) 23 % (24-48) Monocytes (%) (Auto) 7 % (0-9) Eosinophils (%) (Auto) 1 % (0-3) Basophils (%) (Auto) 1 % (0-3) Neutrophils # (Auto) 6.7 x10^3uL (1.8-7.7) Lymphocytes # (Auto) 2.2 x10^3/uL (1.0-4.8) Monocytes # (Auto) 0.7 x10^3/uL (0.0-1.1) Eosinophils # (Auto) 0.1 x10^3/uL (0.0-0.7) Basophils # (Auto) 0.1 x10^3/uL (0.0-0.2) Sodium Level 139 mmol/L (136-145) Potassium Level 3.5 mmol/L (3.5-5.1) Chloride Level 97 mmol/L (98-107) Carbon Dioxide Level 27 mmol/L (21-32) Anion Gap 15 (6-14) Blood Urea Nitrogen 11 mg/dL (7-20) Creatinine 1.3 mg/dL (0.6-1.0) Estimated GFR (Cockcroft-Gault) 45.6 BUN/Creatinine Ratio 8 (6-20) Glucose Level 106 mg/dL (70-99) Lactic Acid Level 2.8 mmol/L (0.4-2.0) Calcium Level 9.5 mg/dL (8.5-10.1) Total Bilirubin 0.7 mg/dL (0.2-1.0) Aspartate Amino Transf (AST/SGOT) 32 U/L (15-37) Alanine Aminotransferase (ALT/SGPT) 51 U/L (14-59) Alkaline Phosphatase 96 U/L (46-116) Total Protein 7.5 g/dL (6.4-8.2) Albumin 4.1 g/dL (3.4-5.0) Albumin/Globulin Ratio 1.2 (1.0-1.7) Lipase 258 U/L (73-393) Urine Collection Type Unknown Urine Color Yellow Urine Clarity Cloudy Urine pH 6.0 Urine Specific [place] 1.025 Urine Protein 100 mg/dL (NEG-TRACE) Urine Glucose (UA) Negative mg/dL (NEG) Urine Ketones (Stick) Trace mg/dL (NEG) Urine Blood Negative (NEG) Urine Nitrite Negative (NEG) Urine Bilirubin Negative (NEG) Urine Urobilinogen Dipstick 0.2 mg/dL (0.2 mg/dL) Urine Leukocyte Esterase Small (NEG) Urine RBC 0 /HPF (0-2) Urine WBC 5-10 /HPF (0-4) Urine Squamous Epithelial Cells Many /LPF Urine Amorphous Sediment Present /HPF Urine Bacteria Few /HPF (0-FEW) Urine Mucus Marked /LPF Review of Systems Review of Systems Patient denies HAYES Patient denies leg swelling Assessment and Plan Assessmemt and Plan Assessment: Probable acute on chronic small bowel obstruction secondary to Crohn's B12 deficiency Hx of Carpal tunnel syndrome Plan: Levaquin 500 mg IV Q24 TPN Labs w/ Lactic Acid DVT PPx Full code GI and Surg consulted Comment Review of Relevant I have reviewed the following items kathy (where applicable) has been applied. Labs Laboratory Tests Test 03/14/19 16:00 03/14/19 18:10 White Blood Count 9.8 x10^3/uL (4.0-11.0) Red Blood Count 4.82 x10^6/uL (3.50-5.40) Hemoglobin 15.0 g/dL (12.0-15.5) Hematocrit 45.1 % (36.0-47.0) Mean Corpuscular Volume 94 fL (79-100) Mean Corpuscular Hemoglobin 31 pg (25-35) Mean Corpuscular Hemoglobin Concent 33 g/dL (31-37) Red Cell Distribution Width 13.3 % (11.5-14.5) Platelet Count 280 x10^3/uL (140-400) Neutrophils (%) (Auto) 68 % (31-73) Lymphocytes (%) (Auto) 23 % (24-48) Monocytes (%) (Auto) 7 % (0-9) Eosinophils (%) (Auto) 1 % (0-3) Basophils (%) (Auto) 1 % (0-3) Neutrophils # (Auto) 6.7 x10^3uL (1.8-7.7) Lymphocytes # (Auto) 2.2 x10^3/uL (1.0-4.8) Monocytes # (Auto) 0.7 x10^3/uL (0.0-1.1) Eosinophils # (Auto) 0.1 x10^3/uL (0.0-0.7) Basophils # (Auto) 0.1 x10^3/uL (0.0-0.2) Sodium Level 139 mmol/L (136-145) Potassium Level 3.5 mmol/L (3.5-5.1) Chloride Level 97 mmol/L (98-107) Carbon Dioxide Level 27 mmol/L (21-32) Anion Gap 15 (6-14) Blood Urea Nitrogen 11 mg/dL (7-20) Creatinine 1.3 mg/dL (0.6-1.0) Estimated GFR (Cockcroft-Gault) 45.6 BUN/Creatinine Ratio 8 (6-20) Glucose Level 106 mg/dL (70-99) Lactic Acid Level 2.8 mmol/L (0.4-2.0) Calcium Level 9.5 mg/dL (8.5-10.1) Total Bilirubin 0.7 mg/dL (0.2-1.0) Aspartate Amino Transf (AST/SGOT) 32 U/L (15-37) Alanine Aminotransferase (ALT/SGPT) 51 U/L (14-59) Alkaline Phosphatase 96 U/L (46-116) Total Protein 7.5 g/dL (6.4-8.2) Albumin 4.1 g/dL (3.4-5.0) Albumin/Globulin Ratio 1.2 (1.0-1.7) Lipase 258 U/L (73-393) Urine Collection Type Unknown Urine Color Yellow Urine Clarity Cloudy Urine pH 6.0 Urine Specific [place] 1.025 Urine Protein 100 mg/dL (NEG-TRACE) Urine Glucose (UA) Negative mg/dL (NEG) Urine Ketones (Stick) Trace mg/dL (NEG) Urine Blood Negative (NEG) Urine Nitrite Negative (NEG) Urine Bilirubin Negative (NEG) Urine Urobilinogen Dipstick 0.2 mg/dL (0.2 mg/dL) Urine Leukocyte Esterase Small (NEG) Urine RBC 0 /HPF (0-2) Urine WBC 5-10 /HPF (0-4) Urine Squamous Epithelial Cells Many /LPF Urine Amorphous Sediment Present /HPF Urine Bacteria Few /HPF (0-FEW) Urine Mucus Marked /LPF Laboratory Tests Test 03/14/19 16:00 03/14/19 18:10 White Blood Count 9.8 x10^3/uL (4.0-11.0) Red Blood Count 4.82 x10^6/uL (3.50-5.40) Hemoglobin 15.0 g/dL (12.0-15.5) Hematocrit 45.1 % (36.0-47.0) Mean Corpuscular Volume 94 fL (79-100) Mean Corpuscular Hemoglobin 31 pg (25-35) Mean Corpuscular Hemoglobin Concent 33 g/dL (31-37) Red Cell Distribution Width 13.3 % (11.5-14.5) Platelet Count 280 x10^3/uL (140-400) Neutrophils (%) (Auto) 68 % (31-73) Lymphocytes (%) (Auto) 23 % (24-48) Monocytes (%) (Auto) 7 % (0-9) Eosinophils (%) (Auto) 1 % (0-3) Basophils (%) (Auto) 1 % (0-3) Neutrophils # (Auto) 6.7 x10^3uL (1.8-7.7) Lymphocytes # (Auto) 2.2 x10^3/uL (1.0-4.8) Monocytes # (Auto) 0.7 x10^3/uL (0.0-1.1) Eosinophils # (Auto) 0.1 x10^3/uL (0.0-0.7) Basophils # (Auto) 0.1 x10^3/uL (0.0-0.2) Sodium Level 139 mmol/L (136-145) Potassium Level 3.5 mmol/L (3.5-5.1) Chloride Level 97 mmol/L (98-107) Carbon Dioxide Level 27 mmol/L (21-32) Anion Gap 15 (6-14) Blood Urea Nitrogen 11 mg/dL (7-20) Creatinine 1.3 mg/dL (0.6-1.0) Estimated GFR (Cockcroft-Gault) 45.6 BUN/Creatinine Ratio 8 (6-20) Glucose Level 106 mg/dL (70-99) Lactic Acid Level 2.8 mmol/L (0.4-2.0) Calcium Level 9.5 mg/dL (8.5-10.1) Total Bilirubin 0.7 mg/dL (0.2-1.0) Aspartate Amino Transf (AST/SGOT) 32 U/L (15-37) Alanine Aminotransferase (ALT/SGPT) 51 U/L (14-59) Alkaline Phosphatase 96 U/L (46-116) Total Protein 7.5 g/dL (6.4-8.2) Albumin 4.1 g/dL (3.4-5.0) Albumin/Globulin Ratio 1.2 (1.0-1.7) Lipase 258 U/L (73-393) Urine Collection Type Unknown Urine Color Yellow Urine Clarity Cloudy Urine pH 6.0 Urine Specific [place] 1.025 Urine Protein 100 mg/dL (NEG-TRACE) Urine Glucose (UA) Negative mg/dL (NEG) Urine Ketones (Stick) Trace mg/dL (NEG) Urine Blood Negative (NEG) Urine Nitrite Negative (NEG) Urine Bilirubin Negative (NEG) Urine Urobilinogen Dipstick 0.2 mg/dL (0.2 mg/dL) Urine Leukocyte Esterase Small (NEG) Urine RBC 0 /HPF (0-2) Urine WBC 5-10 /HPF (0-4) Urine Squamous Epithelial Cells Many /LPF Urine Amorphous Sediment Present /HPF Urine Bacteria Few /HPF (0-FEW) Urine Mucus Marked /LPF Medications Current Medications Sodium Chloride 1,000 ml @ 1,000 mls/hr Q1H IV Last administered on 03/14/19 16:22; Start 03/14/19 at 16:45; Stop 03/14/19 at 17:44; Status DC Hydromorphone HCl (Dilaudid) 2 mg 1X ONCE IV Last administered on 03/14/19 16:26; Start 03/14/19 at 16:15; Stop 03/14/19 at 16:19; Status DC Ondansetron HCl (Zofran) 4 mg 1X ONCE IV Last administered on 03/14/19 16:25; Start 03/14/19 at 16:45; Stop 03/14/19 at 16:46; Status DC Sodium Chloride 1,000 ml @ 1,000 mls/hr 1X ONCE IV Last administered on 03/14/19 16:49; Start 03/14/19 at 16:45; Stop 03/14/19 at 17:44; Status DC Hydromorphone HCl (Dilaudid) 1 mg 1X ONCE IV Last administered on 03/14/19at 17:17; Start 03/14/19 at 17:15; Stop 03/14/19 at 17:16; Status DC Sodium Chloride 1,000 ml @ 1,000 mls/hr 1X ONCE IV Last administered on 03/14/19 19:06; Start 03/14/19 at 19:00; Stop 03/14/19 at 19:59; Status DC Hydromorphone HCl (Dilaudid) 1 mg 1X ONCE IV Last administered on 03/14/19at 19:06; Start 03/14/19 at 19:30; Stop 03/14/19 at 19:31; Status DC Ondansetron HCl (Zofran) 4 mg 1X ONCE IV Last administered on 03/14/19at 19:09; Start 03/14/19 at 19:45; Stop 03/14/19 at 19:46; Status DC Amino Acids/ Glycerin/ Electrolytes 1,000 ml @ 75 mls/hr [id number] IV Last administered on 03/14/19at 21:32; Start 03/14/19 at 19:45; Stop 03/15/19 at 09:47; Status DC Ondansetron HCl (Zofran) 4 mg PRN Q8HRS PRN IV NAUSEA/VOMITING Last administer ed on 03/15/19at 06:27; Start 03/14/19 at 20:00; Stop 03/15/19 at 19:59 Hydromorphone HCl (Dilaudid) 1 mg PRN Q2HRS PRN IV pain Last administered on 03/15/19at 09:07; Start 03/14/19 at 20:00 Diphenhydramine HCl (Benadryl) 50 mg PRN Q6HRS PRN IVP ITCHING Last ad ministered on 03/15/19at 09:06; Start 03/14/19 at 21:15 Info (Tpn Per Pharmacy) 1 each PRN DAILY PRN MC SEE COMMENTS; Start 03/15/19 at 09:45 Active Scripts Active Reported [dilaudid liquid] 1.5 Mg PO PRN Q8HRS PRN [ferous sulfate] Mg PO DAILY [vitamin B12 inject.] MONTHLY Vitamin D3 (Cholecalciferol (Vitamin D3)) 5,000 Unit Tablet 5,000 Unit PO WEEKLY Tablet (Pnv Cmb#95/Ferrous Fumarate/Fa) 1 Each Tablet 1 Tab PO DAILY Benadryl (Diphenhydramine Hcl) 25 Mg Capsule 25 Mg PO PRN Q4-6HRS PRN Zofran Odt (Ondansetron) 4 Mg Tab.rapdis 4 Mg PO BID PRN Biotin 10,000 Mcg Tab.rapdis 10,000 Mcg PO DAILY Simethicone 125 Mg Capsule 125 Mg PO PRN DAILY PRN Pantoprazole Sodium 40 Mg Tablet.dr 40 Mg PO DAILY Clonazepam 1 Mg Tablet 1 Tab PO PRN BID PRN Vitals/I & O Vital Sign - Last 24 Hours 03/14/19 03/14/19 03/14/19 03/14/19 15:59 16:48 17:08 17:28 Temp 99.1 99.1 Pulse 156 128 117 130 Resp 22 18 B/P (MAP) 146/105 (119) 123/88 (100) 134/91 (105) 122/77 (92) Pulse Ox 99 98 100 96 O2 Delivery Room Air Room Air Room Air Room Air 03/14/19 03/14/19 03/14/19 03/14/19 18:13 18:43 19:13 20:00 Pulse 137 131 122 B/P (MAP) 126/90 (102) 119/84 (96) 118/76 (90) Pulse Ox 99 97 O2 Delivery Room Air Room Air Room Air Room Air 03/14/19 03/14/19 03/14/19 03/15/19 20:10 21:20 23:00 00:19 Temp 97.8 97.7 97.8 97.7 Pulse 114 100 Resp 20 20 20 20 B/P (MAP) 109/79 (89) 109/79 (89) Pulse Ox 99 96 96 O2 Delivery Room Air Room Air Room Air Room Air 03/15/19 03/15/19 03/15/19 03/15/19 03:00 03:24 03:54 06:27 Temp 97.6 97.6 Pulse 90 Resp 20 20 B/P (MAP) 112/81 (91) Pulse Ox 96 96 98 O2 Delivery Room Air Room Air Room Air 03/15/19 03/15/19 03/15/19 03/15/19 07:00 07:10 07:30 09:07 Temp 98.2 98.2 Pulse 100 Resp 16 18 16 B/P (MAP) 126/89 (101) Pulse Ox 98 O2 Delivery Room Air Room Air Room Air Room Air 03/15/19 10:56 Temp 98.2 98.2 Pulse 90 Resp 17 B/P (MAP) 113/78 (90) Pulse Ox 100 O2 Delivery Room Air Intake and Output 03/14/19 03/14/19 03/15/19 15:00 23:00 07:00 Intake Total 1750 ml 500 ml Output Total 200 ml 650 ml Balance 1550 ml -150 ml ALKA PRINCEL K III DO March 15, 2019 11:37
--- NOTE | 2019-03-15 13:13 | NUR ---
MELISA notified by RN, pt will need home TPN. Discussed with pt at bedside who reported she had used TPN before but does not remember provider. MELISA faxed pt's face sheet to [facility] to assess benefits. Will continue to follow.
[2019-03-15] MEDS: TPN PER PHARMACY MC PRN (13:14)
--- NOTE | 2019-03-15 13:17 | NUR ---
Pharmacy TPN Dosing Note S: MATTHEW HOLGUIN is a 39 year old F Currently receiving Central Continuous TPN started 03/15/19 B:Pertinent PMH: Crohn's disease; bowel obstruction Height: 5 feet, 7 inches Weight: 71.2 kg Current diet: NPO LABS: Sodium: 138 Potassium: 4 Chloride: 102 Calcium: 8.3 Corrected Calcium: 8.22 Magnesium: 1.6 CO2: 27 SCr: 1 Glucose: 85 Albumin: 4.1 AST: 32 ALT: 51 TPN FORMULA: TPN TYPE: Central Continuous AMINO ACIDS: 70 gm DEXTROSE: 250 gm LIPIDS: 30 gm SODIUM CHLORIDE: 100 mEq POTASSIUM CHLORIDE: 80 mEq POTASSIUM PHOSPHATE: 16 mmol MAGNESIUM: 15 mEq CALCIUM: 12 mEq MULTIPLE VITAMIN: 10 ml TRACE ELEMENTS: 1 ml(s) TPN PLAN: Initiate TPN per most recent formula/prior hospitalization (03/06/19) R: Begin TPN Will monitor electrolytes, glucose, and tolerance to TPN. Calli Sauer Dov, 03/15/19 [id number]
[2019-03-15 14:37] VITALS: BP 107/72
--- NOTE | 2019-03-15 14:44 | PDOC ---
G I PROGRESS NOTE Reason for Follow-up N/V/Crohns Subjective Unable to maintain hydration Physical Exam Lungs decreased BS CV S1 S2 ABD distended, hypoactive BS Review of Relevant I have reviewed the following items kathy (where applicable) has been applied. Labs Laboratory Tests Test 03/14/19 16:00 03/14/19 18:10 03/15/19 10:58 White Blood Count 9.8 x10^3/uL (4.0-11.0) Red Blood Count 4.82 x10^6/uL (3.50-5.40) Hemoglobin 15.0 g/dL (12.0-15.5) Hematocrit 45.1 % (36.0-47.0) Mean Corpuscular Volume 94 fL (79-100) Mean Corpuscular Hemoglobin 31 pg (25-35) Mean Corpuscular Hemoglobin Concent 33 g/dL (31-37) Red Cell Distribution Width 13.3 % (11.5-14.5) Platelet Count 280 x10^3/uL (140-400) Neutrophils (%) (Auto) 68 % (31-73) Lymphocytes (%) (Auto) 23 % (24-48) Monocytes (%) (Auto) 7 % (0-9) Eosinophils (%) (Auto) 1 % (0-3) Basophils (%) (Auto) 1 % (0-3) Neutrophils # (Auto) 6.7 x10^3uL (1.8-7.7) Lymphocytes # (Auto) 2.2 x10^3/uL (1.0-4.8) Monocytes # (Auto) 0.7 x10^3/uL (0.0-1.1) Eosinophils # (Auto) 0.1 x10^3/uL (0.0-0.7) Basophils # (Auto) 0.1 x10^3/uL (0.0-0.2) Sodium Level 139 mmol/L (136-145) 138 mmol/L (136-145) Potassium Level 3.5 mmol/L (3.5-5.1) 4.0 mmol/L (3.5-5.1) Chloride Level 97 mmol/L (98-107) 102 mmol/L (98-107) Carbon Dioxide Level 27 mmol/L (21-32) 27 mmol/L (21-32) Anion Gap 15 (6-14) 9 (6-14) Blood Urea Nitrogen 11 mg/dL (7-20) 14 mg/dL (7-20) Creatinine 1.3 mg/dL (0.6-1.0) 1.0 mg/dL (0.6-1.0) Estimated GFR (Cockcroft-Gault) 45.6 61.7 BUN/Creatinine Ratio 8 (6-20) Glucose Level 106 mg/dL (70-99) 85 mg/dL (70-99) Lactic Acid Level 2.8 mmol/L (0.4-2.0) 0.6 mmol/L (0.4-2.0) Calcium Level 9.5 mg/dL (8.5-10.1) 8.2 mg/dL (8.5-10.1) Total Bilirubin 0.7 mg/dL (0.2-1.0) Aspartate Amino Transf (AST/SGOT) 32 U/L (15-37) Alanine Aminotransferase (ALT/SGPT) 51 U/L (14-59) Alkaline Phosphatase 96 U/L (46-116) Total Protein 7.5 g/dL (6.4-8.2) Albumin 4.1 g/dL (3.4-5.0) Albumin/Globulin Ratio 1.2 (1.0-1.7) Lipase 258 U/L (73-393) Urine Collection Type Unknown Urine Color Yellow Urine Clarity Cloudy Urine pH 6.0 Urine Specific [place] 1.025 Urine Protein 100 mg/dL (NEG-TRACE) Urine Glucose (UA) Negative mg/dL (NEG) Urine Ketones (Stick) Trace mg/dL (NEG) Urine Blood Negative (NEG) Urine Nitrite Negative (NEG) Urine Bilirubin Negative (NEG) Urine Urobilinogen Dipstick 0.2 mg/dL (0.2 mg/dL) Urine Leukocyte Esterase Small (NEG) Urine RBC 0 /HPF (0-2) Urine WBC 5-10 /HPF (0-4) Urine Squamous Epithelial Cells Many /LPF Urine Amorphous Sediment Present /HPF Urine Bacteria Few /HPF (0-FEW) Urine Mucus Marked /LPF Phosphorus Level 3.4 mg/dL (2.6-4.7) Magnesium Level 1.6 mg/dL (1.8-2.4) Laboratory Tests Test 03/14/19 16:00 03/14/19 18:10 03/15/19 10:58 White Blood Count 9.8 x10^3/uL (4.0-11.0) Red Blood Count 4.82 x10^6/uL (3.50-5.40) Hemoglobin 15.0 g/dL (12.0-15.5) Hematocrit 45.1 % (36.0-47.0) Mean Corpuscular Volume 94 fL (79-100) Mean Corpuscular Hemoglobin 31 pg (25-35) Mean Corpuscular Hemoglobin Concent 33 g/dL (31-37) Red Cell Distribution Width 13.3 % (11.5-14.5) Platelet Count 280 x10^3/uL (140-400) Neutrophils (%) (Auto) 68 % (31-73) Lymphocytes (%) (Auto) 23 % (24-48) Monocytes (%) (Auto) 7 % (0-9) Eosinophils (%) (Auto) 1 % (0-3) Basophils (%) (Auto) 1 % (0-3) Neutrophils # (Auto) 6.7 x10^3uL (1.8-7.7) Lymphocytes # (Auto) 2.2 x10^3/uL (1.0-4.8) Monocytes # (Auto) 0.7 x10^3/uL (0.0-1.1) Eosinophils # (Auto) 0.1 x10^3/uL (0.0-0.7) Basophils # (Auto) 0.1 x10^3/uL (0.0-0.2) Sodium Level 139 mmol/L (136-145) 138 mmol/L (136-145) Potassium Level 3.5 mmol/L (3.5-5.1) 4.0 mmol/L (3.5-5.1) Chloride Level 97 mmol/L (98-107) 102 mmol/L (98-107) Carbon Dioxide Level 27 mmol/L (21-32) 27 mmol/L (21-32) Anion Gap 15 (6-14) 9 (6-14) Blood Urea Nitrogen 11 mg/dL (7-20) 14 mg/dL (7-20) Creatinine 1.3 mg/dL (0.6-1.0) 1.0 mg/dL (0.6-1.0) Estimated GFR (Cockcroft-Gault) 45.6 61.7 BUN/Creatinine Ratio 8 (6-20) Glucose Level 106 mg/dL (70-99) 85 mg/dL (70-99) Lactic Acid Level 2.8 mmol/L (0.4-2.0) 0.6 mmol/L (0.4-2.0) Calcium Level 9.5 mg/dL (8.5-10.1) 8.2 mg/dL (8.5-10.1) Total Bilirubin 0.7 mg/dL (0.2-1.0) Aspartate Amino Transf (AST/SGOT) 32 U/L (15-37) Alanine Aminotransferase (ALT/SGPT) 51 U/L (14-59) Alkaline Phosphatase 96 U/L (46-116) Total Protein 7.5 g/dL (6.4-8.2) Albumin 4.1 g/dL (3.4-5.0) Albumin/Globulin Ratio 1.2 (1.0-1.7) Lipase 258 U/L (73-393) Urine Collection Type Unknown Urine Color Yellow Urine Clarity Cloudy Urine pH 6.0 Urine Specific [place] 1.025 Urine Protein 100 mg/dL (NEG-TRACE) Urine Glucose (UA) Negative mg/dL (NEG) Urine Ketones (Stick) Trace mg/dL (NEG) Urine Blood Negative (NEG) Urine Nitrite Negative (NEG) Urine Bilirubin Negative (NEG) Urine Urobilinogen Dipstick 0.2 mg/dL (0.2 mg/dL) Urine Leukocyte Esterase Small (NEG) Urine RBC 0 /HPF (0-2) Urine WBC 5-10 /HPF (0-4) Urine Squamous Epithelial Cells Many /LPF Urine Amorphous Sediment Present /HPF Urine Bacteria Few /HPF (0-FEW) Urine Mucus Marked /LPF Phosphorus Level 3.4 mg/dL (2.6-4.7) Magnesium Level 1.6 mg/dL (1.8-2.4) Medications Current Medications Sodium Chloride 1,000 ml @ 1,000 mls/hr Q1H IV Last administered on 03/14/19at 16:22; Start 03/14/19 at 16:45; Stop 03/14/19 at 17:44; Status DC Hydromorphone HCl (Dilaudid) 2 mg 1X ONCE IV Last administered on 03/14/19 16:26; Start 03/14/19 at 16:15; Stop 03/14/19 at 16:19; Status DC Ondansetron HCl (Zofran) 4 mg 1X ONCE IV Last administered on 03/14/19at 16:25; Start 03/14/19 at 16:45; Stop 03/14/19 at 16:46; Status DC Sodium Chloride 1,000 ml @ 1,000 mls/hr 1X ONCE IV Last administered on 03/14at 16:49; Start 03/14/19 at 16:45; Stop 03/14/19 at 17:44; Status DC Hydromorphone HCl (Dilaudid) 1 mg 1X ONCE IV Last administered on 03/14/19at 17:17; Start 03/14/19 at 17:15; Stop 03/14/19 at 17:16; Status DC Sodium Chloride 1,000 ml @ 1,000 mls/hr 1X ONCE IV Last administered on 03/14/19at 19:06; Start 03/14/19 at 19:00; Stop 03/14/19 at 19:59; Status DC Hydromorphone HCl (Dilaudid) 1 mg 1X ONCE IV Last administered on 03/14/19 19:06; Start 03/14/19 at 19:30; Stop 03/14/19 at 19:31; Status DC Ondansetron HCl (Zofran) 4 mg 1X ONCE IV Last administered on 03/14/19at 19:09; Start 03/14/19 at 19:45; Stop 03/14/19 at 19:46; Status DC Amino Acids/ Glycerin/ Electrolytes 1,000 ml @ 75 mls/hr [id number] IV Last administered on 03/14/19at 21:32; Start 03/14/19 at 19:45; Stop 03/15/19 at 09:47; Status DC Ondansetron HCl (Zofran) 4 mg PRN Q8HRS PRN IV NAUSEA/VOMITING Last administered on 03/15/19 06:27; Start 03/14/19 at 20:00; Stop 03/15/19 at 19:59 Hydromorphone HCl (Dilaudid) 1 mg PRN Q2HRS PRN IV pain Last administered on 03/15/19at 13:43; Start 03/14/19 at 20:00 Diphenhydramine HCl (Benadryl) 50 mg PRN Q6HRS PRN IVP ITCHING Last administered on 03/15/19at 09:06; Start 03/14/19 at 21:15 Info (Tpn Per Pharmacy) 1 each PRN DAILY PRN MC SEE COMMENTS Last administered on 03/15/19at 13:14; Start 03/15/19 at 09:45 Levofloxacin/ Dextrose 100 ml @ 100 mls/hr Q24H IV Last administered on 03/15/19at 13:44; Start 03/15/19 at 13:00 Sodium Chloride 100 meq/Potassium Chloride 80 meq/ Potassium Phosphate 16 mmol/ Magnesium Sulfate 15 meq/Calcium Gluconate 12 meq/ Multivitamins 10 ml/Chromium/ Copper/Manganese/ Seleni/Zn 1 ml/ Total Parenteral Nutrition/Amino Acids/ Dextrose/ Fat Emulsion Intravenous 1,512 ml @ 63 mls/hr TPN CONT IV ; Start 03/15/19 at 22:00; Stop 03/16/19 at 21:59 Active Scripts Active Reported [dilaudid liquid] 1.5 Mg PO PRN Q8HRS PRN [ferous sulfate] Mg PO DAILY [vitamin B12 inject.] MONTHLY Vitamin D3 (Cholecalciferol (Vitamin D3)) 5,000 Unit Tablet 5,000 Unit PO WEEKLY Tablet (Pnv Cmb#95/Ferrous Fumarate/Fa) 1 Each Tablet 1 Tab PO DAILY Benadryl (Diphenhydramine Hcl) 25 Mg Capsule 25 Mg PO PRN Q4-6HRS PRN Zofran Odt (Ondansetron) 4 Mg Tab.rapdis 4 Mg PO BID PRN Biotin 10,000 Mcg Tab.rapdis 10,000 Mcg PO DAILY Simethicone 125 Mg Capsule 125 Mg PO PRN DAILY PRN Pantoprazole Sodium 40 Mg Tablet.dr 40 Mg PO DAILY Clonazepam 1 Mg Tablet 1 Tab PO PRN BID PRN Vitals/I & O Vital Sign - Last 24 Hours 03/14/19 03/14/19 03/14/19 03/14/19 15:59 16:48 17:08 17:28 Temp 99.1 99.1 Pulse 156 128 117 130 Resp 22 18 B/P (MAP) 146/105 (119) 123/88 (100) 134/91 (105) 122/77 (92) Pulse Ox 99 98 100 96 O2 Delivery Room Air Room Air Room Air Room Air 03/14/19 03/14/19 03/14/19 03/14/19 18:13 18:43 19:13 20:00 Pulse 137 131 122 B/P (MAP) 126/90 (102) 119/84 (96) 118/76 (90) Pulse Ox 99 97 O2 Delivery Room Air Room Air Room Air Room Air 03/14/19 03/14/19 03/14/19 03/15/19 20:10 21:20 23:00 00:19 Temp 97.8 97.7 97.8 97.7 Pulse 114 100 Resp 20 20 20 20 B/P (MAP) 109/79 (89) 109/79 (89) Pulse Ox 99 96 96 O2 Delivery Room Air Room Air Room Air Room Air 03/15/19 03/15/19 03/15/19 03/15/19 03:00 03:24 03:54 06:27 Temp 97.6 97.6 Pulse 90 Resp 20 20 B/P (MAP) 112/81 (91) Pulse Ox 96 96 98 O2 Delivery Room Air Room Air Room Air 03/15/19 03/15/19 03/15/19 03/15/19 07:10 07:30 09:07 10:56 Temp 98.2 98.2 98.2 98.2 Pulse 100 90 Resp 18 16 17 B/P (MAP) 126/89 (101) 113/78 (90) Pulse Ox 98 100 O2 Delivery Room Air Room Air Room Air Room Air 03/15/19 03/15/19 03/15/19 03/15/19 11:26 11:56 13:43 14:37 Temp 97.6 97.6 Pulse 88 Resp 16 16 16 16 B/P (MAP) 107/72 (84) Pulse Ox 99 O2 Delivery Room Air Room Air Room Air Room Air Intake and Output 03/14/19 03/14/19 03/15/19 15:00 23:00 07:00 Intake Total 1750 ml 500 ml Output Total 200 ml 650 ml Balance 1550 ml -150 ml Problem List Crohns with recurrent partiasl obstruction, admitted for hydration, surgery planned with Dr Holt 03/27. TPN if unable to advance diet LEIGHTON MARY MD March 15, 2019 14:44
[2019-03-15 19:00] VITALS: BP 118/79
[2019-03-15] MEDS ORDERED: AMINO ACID IV SCH ×10 (22:00)
[2019-03-15] MEDS ORDERED: DEXTROSE 70% IV SCH ×10 (22:00)
[2019-03-15] MEDS ORDERED: TOTAL PARENTERAL NUTRITION IV SCH ×10 (22:00)
[2019-03-15] MEDS ORDERED: [UNRECOGNIZED DRUG - OTHER] IV SCH ×10 (22:00)
[2019-03-15 23:00] VITALS: BP 108/64
[2019-03-16] MEDS: HYDROmorphone 2 MG/ML VIAL IV PRN ×8 (01:52→21:45)
[2019-03-16 03:00] VITALS: BP 116/75
[2019-03-16] MEDS: diphenhydrAMINE 50 MG/ML VIAL IVP PRN ×4 (03:32→21:46)
[2019-03-16 05:56] LABS: BASO % 1 % (0-3); EOS # 0.2 x10^3/uL (0.0-0.7); EOS % 5 % (0-3); HEMATOCRIT 34.1 % (36.0-47.0); HEMOGLOBIN 11.3 g/dL (12.0-15.5); LYMPH # 1.2 x10^3/uL (1.0-4.8); LYMPH % 24 % (24-48); MEAN CORPUSCULAR HEMOGLOBIN 31 pg (25-35); MEAN CORPUSCULAR HGB CONC 33 g/dL (31-37); MEAN CORPUSCULAR VOLUME 94 fL (79-100); MONO # 0.5 x10^3/uL (0.0-1.1); MONO % 10 % (0-9); NEUT % 61 % (31-73); PLATELET COUNT 156 x10^3/uL (140-400); RED BLOOD COUNT 3.62 x10^6/uL (3.50-5.40); RED CELL DISTRIBUTION WIDTH 12.9 % (11.5-14.5); WHITE BLOOD COUNT 4.9 x10^3/uL (4.0-11.0)
[2019-03-16 06:11] LABS: CALCIUM 8.6 mg/dL (8.5-10.1); CREATININE 0.9 mg/dL (0.6-1.0); GFR 69.7; POTASSIUM 3.9 mmol/L (3.5-5.1)
[2019-03-16 06:17] LABS: MAGNESIUM 1.8 mg/dL (1.8-2.4)
[2019-03-16 07:00] VITALS: BP 121/83
--- NOTE | 2019-03-16 09:23 | PDOC ---
PROGRESS NOTES Chief Complaint Chief Complaint acute on chronic small bowel obstruction secondary to Crohn's B12 deficiency Hx of Carpal tunnel syndrome nausea and vomiting insomnia History of Present Illness History of Present Illness Patient seen and examined. Discussed with Nurse Ostomy site and prior surgical sites checked, clean with no inflammation Patient desires to have home TPN Vitals Vitals Vital Signs Date Time Temp Pulse Resp B/P (MAP) Pulse Ox O2 Delivery O2 Flow Rate FiO2 03/16/19 08:30 18 Room Air 03/16/19 07:00 97.9 97 121/83 (96) 96 97.9 Physical Exam General: Alert, Oriented X3, Cooperative, mild distress Heart: Regular rate, Normal S1, Normal S2, No murmurs Lungs: Clear Abdomen: Soft, Other (tender lower abdomen, ostomy in place) Extremities: No clubbing, No cyanosis Skin: No rashes, No breakdown Labs LABS Laboratory Tests Test 03/15/19 10:58 03/16/19 05:40 Sodium Level 138 mmol/L (136-145) 143 mmol/L (136-145) Potassium Level 4.0 mmol/L (3.5-5.1) 3.9 mmol/L (3.5-5.1) Chloride Level 102 mmol/L (98-107) 108 mmol/L (98-107) Carbon Dioxide Level 27 mmol/L (21-32) 28 mmol/L (21-32) Anion Gap 9 (6-14) 7 (6-14) Blood Urea Nitrogen 14 mg/dL (7-20) 11 mg/dL (7-20) Creatinine 1.0 mg/dL (0.6-1.0) 0.9 mg/dL (0.6-1.0) Estimated GFR (Cockcroft-Gault) 61.7 69.7 Glucose Level 85 mg/dL (70-99) 116 mg/dL (70-99) Lactic Acid Level 0.6 mmol/L (0.4-2.0) Calcium Level 8.2 mg/dL (8.5-10.1) 8.6 mg/dL (8.5-10.1) Phosphorus Level 3.4 mg/dL (2.6-4.7) 4.0 mg/dL (2.6-4.7) Magnesium Level 1.6 mg/dL (1.8-2.4) 1.8 mg/dL (1.8-2.4) White Blood Count 4.9 x10^3/uL (4.0-11.0) Red Blood Count 3.62 x10^6/uL (3.50-5.40) Hemoglobin 11.3 g/dL (12.0-15.5) Hematocrit 34.1 % (36.0-47.0) Mean Corpuscular Volume 94 fL (79-100) Mean Corpuscular Hemoglobin 31 pg (25-35) Mean Corpuscular Hemoglobin Concent 33 g/dL (31-37) Red Cell Distribution Width 12.9 % (11.5-14.5) Platelet Count 156 x10^3/uL (140-400) Neutrophils (%) (Auto) 61 % (31-73) Lymphocytes (%) (Auto) 24 % (24-48) Monocytes (%) (Auto) 10 % (0-9) Eosinophils (%) (Auto) 5 % (0-3) Basophils (%) (Auto) 1 % (0-3) Neutrophils # (Auto) 3.0 x10^3uL (1.8-7.7) Lymphocytes # (Auto) 1.2 x10^3/uL (1.0-4.8) Monocytes # (Auto) 0.5 x10^3/uL (0.0-1.1) Eosinophils # (Auto) 0.2 x10^3/uL (0.0-0.7) Basophils # (Auto) 0.0 x10^3/uL (0.0-0.2) Triglycerides Level 114 mg/dL (0-150) Review of Systems Review of Systems tearful, nausea, abd pain, Comment Review of Relevant I have reviewed the following items kathy (where applicable) has been applied. Labs Laboratory Tests Test 03/14/19 16:00 03/14/19 18:10 03/15/19 10:58 03/16/19 05:40 White Blood Count 9.8 x10^3/uL (4.0-11.0) 4.9 x10^3/uL (4.0-11.0) Red Blood Count 4.82 x10^6/uL (3.50-5.40) 3.62 x10^6/uL (3.50-5.40) Hemoglobin 15.0 g/dL (12.0-15.5) 11.3 g/dL (12.0-15.5) Hematocrit 45.1 % (36.0-47.0) 34.1 % (36.0-47.0) Mean Corpuscular Volume 94 fL (79-100) 94 fL (79-100) Mean Corpuscular Hemoglobin 31 pg (25-35) 31 pg (25-35) Mean Corpuscular Hemoglobin Concent 33 g/dL (31-37) 33 g/dL (31-37) Red Cell Distribution Width 13.3 % (11.5-14.5) 12.9 % (11.5-14.5) Platelet Count 280 x10^3/uL (140-400) 156 x10^3/uL (140-400) Neutrophils (%) (Auto) 68 % (31-73) 61 % (31-73) Lymphocytes (%) (Auto) 23 % (24-48) 24 % (24-48) Monocytes (%) (Auto) 7 % (0-9) 10 % (0-9) Eosinophils (%) (Auto) 1 % (0-3) 5 % (0-3) Basophils (%) (Auto) 1 % (0-3) 1 % (0-3) Neutrophils # (Auto) 6.7 x10^3uL (1.8-7.7) 3.0 x10^3uL (1.8-7.7) Lymphocytes # (Auto) 2.2 x10^3/uL (1.0-4.8) 1.2 x10^3/uL (1.0-4.8) Monocytes # (Auto) 0.7 x10^3/uL (0.0-1.1) 0.5 x10^3/uL (0.0-1.1) Eosinophils # (Auto) 0.1 x10^3/uL (0.0-0.7) 0.2 x10^3/uL (0.0-0.7) Basophils # (Auto) 0.1 x10^3/uL (0.0-0.2) 0.0 x10^3/uL (0.0-0.2) Sodium Level 139 mmol/L (136-145) 138 mmol/L (136-145) 143 mmol/L (136-145) Potassium Level 3.5 mmol/L (3.5-5.1) 4.0 mmol/L (3.5-5.1) 3.9 mmol/L (3.5-5.1) Chloride Level 97 mmol/L (98-107) 102 mmol/L (98-107) 108 mmol/L (98-107) Carbon Dioxide Level 27 mmol/L (21-32) 27 mmol/L (21-32) 28 mmol/L (21-32) Anion Gap 15 (6-14) 9 (6-14) 7 (6-14) Blood Urea Nitrogen 11 mg/dL (7-20) 14 mg/dL (7-20) 11 mg/dL (7-20) Creatinine 1.3 mg/dL (0.6-1.0) 1.0 mg/dL (0.6-1.0) 0.9 mg/dL (0.6-1.0) Estimated GFR (Cockcroft-Gault) 45.6 61.7 69.7 BUN/Creatinine Ratio 8 (6-20) Glucose Level 106 mg/dL (70-99) 85 mg/dL (70-99) 116 mg/dL (70-99) Lactic Acid Level 2.8 mmol/L (0.4-2.0) 0.6 mmol/L (0.4-2.0) Calcium Level 9.5 mg/dL (8.5-10.1) 8.2 mg/dL (8.5-10.1) 8.6 mg/dL (8.5-10.1) Total Bilirubin 0.7 mg/dL (0.2-1.0) Aspartate Amino Transf (AST/SGOT) 32 U/L (15-37) Alanine Aminotransferase (ALT/SGPT) 51 U/L (14-59) Alkaline Phosphatase 96 U/L (46-116) Total Protein 7.5 g/dL (6.4-8.2) Albumin 4.1 g/dL (3.4-5.0) Albumin/Globulin Ratio 1.2 (1.0-1.7) Lipase 258 U/L (73-393) Urine Collection Type Unknown Urine Color Yellow Urine Clarity Cloudy Urine pH 6.0 Urine Specific Delia 1.025 Urine Protein 100 mg/dL (NEG-TRACE) Urine Glucose (UA) Negative mg/dL (NEG) Urine Ketones (Stick) Trace mg/dL (NEG) Urine Blood Negative (NEG) Urine Nitrite Negative (NEG) Urine Bilirubin Negative (NEG) Urine Urobilinogen Dipstick 0.2 mg/dL (0.2 mg/dL) Urine Leukocyte Esterase Small (NEG) Urine RBC 0 /HPF (0-2) Urine WBC 5-10 /HPF (0-4) Urine Squamous Epithelial Cells Many /LPF Urine Amorphous Sediment Present /HPF Urine Bacteria Few /HPF (0-FEW) Urine Mucus Marked /LPF Phosphorus Level 3.4 mg/dL (2.6-4.7) 4.0 mg/dL (2.6-4.7) Magnesium Level 1.6 mg/dL (1.8-2.4) 1.8 mg/dL (1.8-2.4) Triglycerides Level 114 mg/dL (0-150) Laboratory Tests Test 03/15/19 10:58 03/16/19 05:40 Sodium Level 138 mmol/L (136-145) 143 mmol/L (136-145) Potassium Level 4.0 mmol/L (3.5-5.1) 3.9 mmol/L (3.5-5.1) Chloride Level 102 mmol/L (98-107) 108 mmol/L (98-107) Carbon Dioxide Level 27 mmol/L (21-32) 28 mmol/L (21-32) Anion Gap 9 (6-14) 7 (6-14) Blood Urea Nitrogen 14 mg/dL (7-20) 11 mg/dL (7-20) Creatinine 1.0 mg/dL (0.6-1.0) 0.9 mg/dL (0.6-1.0) Estimated GFR (Cockcroft-Gault) 61.7 69.7 Glucose Level 85 mg/dL (70-99) 116 mg/dL (70-99) Lactic Acid Level 0.6 mmol/L (0.4-2.0) Calcium Level 8.2 mg/dL (8.5-10.1) 8.6 mg/dL (8.5-10.1) Phosphorus Level 3.4 mg/dL (2.6-4.7) 4.0 mg/dL (2.6-4.7) Magnesium Level 1.6 mg/dL (1.8-2.4) 1.8 mg/dL (1.8-2.4) White Blood Count 4.9 x10^3/uL (4.0-11.0) Red Blood Count 3.62 x10^6/uL (3.50-5.40) Hemoglobin 11.3 g/dL (12.0-15.5) Hematocrit 34.1 % (36.0-47.0) Mean Corpuscular Volume 94 fL (79-100) Mean Corpuscular Hemoglobin 31 pg (25-35) Mean Corpuscular Hemoglobin Concent 33 g/dL (31-37) Red Cell Distribution Width 12.9 % (11.5-14.5) Platelet Count 156 x10^3/uL (140-400) Neutrophils (%) (Auto) 61 % (31-73) Lymphocytes (%) (Auto) 24 % (24-48) Monocytes (%) (Auto) 10 % (0-9) Eosinophils (%) (Auto) 5 % (0-3) Basophils (%) (Auto) 1 % (0-3) Neutrophils # (Auto) 3.0 x10^3uL (1.8-7.7) Lymphocytes # (Auto) 1.2 x10^3/uL (1.0-4.8) Monocytes # (Auto) 0.5 x10^3/uL (0.0-1.1) Eosinophils # (Auto) 0.2 x10^3/uL (0.0-0.7) Basophils # (Auto) 0.0 x10^3/uL (0.0-0.2) Triglycerides Level 114 mg/dL (0-150) Medications Current Medications Sodium Chloride 1,000 ml @ 1,000 mls/hr Q1H IV Last administered on 03/14/19at 16:22; Start 03/14/19 at 16:45; Stop 03/14/19 at 17:44; Status DC Hydromorphone HCl (Dilaudid) 2 mg 1X ONCE IV Last administered on 03/14/19at 16:26; Start 03/14/19 at 16:15; Stop 03/14/19 at 16:19; Status DC Ondansetron HCl (Zofran) 4 mg 1X ONCE IV Last administered on 03/14/19 16:25; Start 03/14/19 at 16:45; Stop 03/14/19 at 16:46; Status DC Sodium Chloride 1,000 ml @ 1,000 mls/hr 1X ONCE IV Last administered on 03/14/19 16:49; Start 03/14/19 at 16:45; Stop 03/14/19 at 17:44; Status DC Hydromorphone HCl (Dilaudid) 1 mg 1X ONCE IV Last administered on 03/14/19at 17:17; Start 03/14/19 at 17:15; Stop 03/14/19 at 17:16; Status DC Sodium Chloride 1,000 ml @ 1,000 mls/hr 1X ONCE IV Last administered on 03/14/19 19:06; Start 03/14/19 at 19:00; Stop 03/14/19 at 19:59; Status DC Hydromorphone HCl (Dilaudid) 1 mg 1X ONCE IV Last administered on 03/14/19 19:06; Start 03/14/19 at 19:30; Stop 03/14/19 at 19:31; Status DC Ondansetron HCl (Zofran) 4 mg 1X ONCE IV Last administered on 03/14/19 19:09; Start 03/14/19 at 19:45; Stop 03/14/19 at 19:46; Status DC Amino Acids/ Glycerin/ Electrolytes 1,000 ml @ 75 mls/hr [id number] IV Last administered on 03/14/19at 21:32; Start 03/14/19 at 19:45; Stop 03/15/19 at 09:47; Status DC Ondansetron HCl (Zofran) 4 mg PRN Q8HRS PRN IV NAUSEA/VOMITING Last administered on 03/15/19 16:02; Start 03/14/19 at 20:00; Stop 03/15/19 at 19:59; Status DC Hydromorphone HCl (Dilaudid) 1 mg PRN Q2HRS PRN IV pain Last administered on 03/16/19 08:30; Start 03/14/19 at 20:00 Diphenhydramine HCl (Benadryl) 50 mg PRN Q6HRS PRN IVP ITCHING Last administered on 03/16/19 08:29; Start 03/14/19 at 21:15 Info (Tpn Per Pharmacy) 1 each PRN DAILY PRN MC SEE COMMENTS Last administered on 03/15/19at 13:14; Start 03/15/19 at 09:45 Levofloxacin/ Dextrose 100 ml @ 100 mls/hr Q24H IV Last administered on 03/15/19at 13:44; Start 03/15/19 at 13:00 Sodium Chloride 100 meq/Potassium Chloride 80 meq/ Potassium Phosphate 16 mmol/ Magnesium Sulfate 15 meq/Calcium Gluconate 12 meq/ Multivitamins 10 ml/Chromium/ Copper/Manganese/ Seleni/Zn 1 ml/ Total Parenteral Nutrition/Amino Acids/Dextrose/ Fat Emulsion Intravenous 1,512 ml @ 63 mls/hr TPN CONT IV Last administered on 03/15/19at 21:28; Start 03/15/19 at 22:00; Stop 03/16/19 at 21:59 Active Scripts Active Reported [dilaudid liquid] 1.5 Mg PO PRN Q8HRS PRN [ferous sulfate] Mg PO DAILY [vitamin B12 inject.] MONTHLY Vitamin D3 (Cholecalciferol (Vitamin D3)) 5,000 Unit Tablet 5,000 Unit PO WEEKLY Tablet (Pnv Cmb#95/Ferrous Fumarate/Fa) 1 Each Tablet 1 Tab PO DAILY Benadryl (Diphenhydramine Hcl) 25 Mg Capsule 25 Mg PO PRN Q4-6HRS PRN Zofran Odt (Ondansetron) 4 Mg Tab.rapdis 4 Mg PO BID PRN Biotin 10,000 Mcg Tab.rapdis 10,000 Mcg PO DAILY Simethicone 125 Mg Capsule 125 Mg PO PRN DAILY PRN Pantoprazole Sodium 40 Mg Tablet.dr 40 Mg PO DAILY Clonazepam 1 Mg Tablet 1 Tab PO PRN BID PRN Vitals/I & O Vital Sign - Last 24 Hours 03/15/19 03/15/19 03/15/19 03/15/19 10:56 11:26 13:43 14:37 Temp 98.2 97.6 98.2 97.6 Pulse 90 88 Resp 17 16 16 16 B/P (MAP) 113/78 (90) 107/72 (84) Pulse Ox 100 99 O2 Delivery Room Air Room Air Room Air Room Air 03/15/19 03/15/19 03/15/19 03/15/19 16:03 19:00 19:08 20:05 Temp 98.1 98.1 Pulse 85 Resp 16 20 16 B/P (MAP) 118/79 (92) Pulse Ox 97 O2 Delivery Room Air Room Air Room Air 03/15/19 03/15/19 03/15/19 03/16/19 21:28 23:00 23:41 01:52 Temp 97.7 97.7 Pulse 83 Resp 16 18 18 B/P (MAP) 108/64 (79) Pulse Ox 99 O2 Delivery Room Air Room Air Room Air 03/16/19 03/16/19 03/16/19 03/16/19 03:00 05:45 06:15 07:00 Temp 97.6 97.9 97.6 97.9 Pulse 87 97 Resp 18 20 18 18 B/P (MAP) 116/75 (89) 121/83 (96) Pulse Ox 100 96 O2 Delivery Room Air Room Air Room Air 03/16/19 08:30 Resp 18 O2 Delivery Room Air Intake and Output 03/15/19 03/15/19 03/16/19 14:59 22:59 06:59 Intake Total 0 ml 0 ml 523 ml Output Total 1 ml Balance 0 ml 0 ml 522 ml ABI MAHAN MD March 16, 2019 09:23
[2019-03-16] MEDS ORDERED: clonazePAM 1 MG TABLET PO PRN (09:30)
[2019-03-16] MEDS ORDERED: SIMETHICONE 80 MG TAB.CHEW PO PRN (09:45)
--- NOTE | 2019-03-16 10:27 | NUR ---
Nursing Pain Note Pt was asking for change in pain medication dosage this morning, specifically requesting 2mg hydromorphone q 3hrs stating it helps better for pain. This rn mentioned i would bring it up with her doctors and she then backtracked and said she did not want me to mention it to the doctor and would rather have the 1 mg q2hrs. she then requested something to sleep at night, states she takes clonazepam at home and that she didnt want ativan because it was not strong enough. patient also requesting benadryl with with hydromorhone doses because she gets itching around her port a cath site from the tegaderm. pt is requesting iv hydromorphone every two hours when it is ordered for, she keeps times of when the meds were given last.
--- NOTE | 2019-03-16 10:34 | NUR ---
NURSING NOTE PATIENT WAS REQUESTING TO LEAVE AMA BECAUSE SHE DID NOT FEEL LIKE HER DOCTOR WAS LISTENING TO HER. I DISCUSSED THIS WITH DR. MAHAN WHO SAID SHE WAS FREE TO SEE A DIFFERENT DOCTOR TOMORROW OR GO HOME SHE WAS ASKING. I SPOKE WITH PATIENT WHO THEN FELT SHE WAS NOT WELL ENOUGH TO GO HOME AND THAT SHE DID NOT WANT A NEW DOCTOR BECAUSE SHE DIDNT WANT TO HAVE TO EXPLAIN EVERYTHING AGAIN TO A NEW DOCTOR. SHE STATED "IF I KNOW DR. SAN IS GOING TO BE BACK TOMORROW THAN I WILL BE FINE, ILL JUST BE BETTER PREPARED MENTALLY TO DEAL WITH HIM AND WILL SAY LITTLE POSSIBLE TO HIM." PT WAS MADE AWARE BY THIS RN THAT SHE HAD EVERY RIGHT TO LEAVE AMA IF SHE WISHED OR THAT SHE COULD CHOOSE TO SEE A DIFFERENT DOCTOR WHILE A PATIENT IN THIS HOSPITAL TO WHICH SHE DECLINED BOTH.
[2019-03-16 11:00] VITALS: BP 117/82
[2019-03-16] MEDS: TPN PER PHARMACY MC PRN (12:50)
--- NOTE | 2019-03-16 12:51 | NUR ---
Pharmacy TPN Dosing Note S: MATTHEW HOLGUIN is a 39 year old F Currently receiving Central Continuous TPN started 03/15/19 B:Pertinent PMH: Crohn's disease; bowel obstruction Height: 5 feet, 7 inches Weight: 71.496642 kg Current diet: NPO LABS: Sodium: 143 Potassium: 3.9 Chloride: 108 Calcium: 8.6 Corrected Calcium: 8.52 Magnesium: 1.8 CO2: 28 SCr: 0.9 Glucose: 116 Albumin: 4.1 AST: 32 ALT: 51 TPN FORMULA: TPN TYPE: Central Continuous AMINO ACIDS: 70 gm DEXTROSE: 250 gm LIPIDS: 30 gm SODIUM CHLORIDE: 100 mEq SODIUM ACETATE: mEq SODIUM PHOSPHATE: mmol POTASSIUM CHLORIDE: 80 mEq POTASSIUM ACETATE: mEq POTASSIUM PHOSPHATE: 16 mmol MAGNESIUM: 15 mEq CALCIUM: 12 mEq INSULIN: units MULTIPLE VITAMIN: 10 ml TRACE ELEMENTS: 1 ml(s) TPN PLAN: No changes to TPN today, lytes and BG stable. R: Continue TPN ABOVE. Will monitor electrolytes, glucose, and tolerance to TPN. AVRIL BOATENG [facility], 03/16/19 [id number]
--- NOTE | 2019-03-16 14:13 | PDOC ---
Subjective: Subjective: Patient reports she had poor sleep last night with abdominal pain. Her abdomen also remained distended. She has nausea and dry heaves. She passed only 100 cc of liquid stool. She reports she typically has more than 2000cc of liquid stool. Objective: Vital Signs: Vital Signs Date Time Temp Pulse Resp B/P (MAP) Pulse Ox O2 Delivery O2 Flow Rate FiO2 03/16/19 13:26 18 97 Room Air 03/16/19 11:00 97.8 89 117/82 (94) 97.8 Imaging: [facility] [address] [place] [address] IMAGING REPORT Signed PATIENT: MATTHEW HOLGUIN ACCOUNT: [id number] : 1980 LOCATION: ER AGE: 39 SEX: F EXAM STATUS: REG ER ORD. PHYSICIAN: ELINA WHALEN MD REASON: Abd pain, Hx Crohn's disease, Hx SBO PROCEDURE: CT ABD PEL W/ORAL CONTRST ONLY CT ABD PEL W/ORAL CONTRST ONLY Indication: ABD PAIN H//O CHRON'S PT DRANK 1 BOTTLE OF VOLUMEN COLON RESECTION PREV SENT Exposure: One or more of the following individualized dose reduction techniques were utilized for this examination: 1. Automated exposure control 2. Adjustment of the mA and/or kV according to patient size 3. Use of iterative reconstruction technique. Comparison: February 21, 2019 Technique: No intravenous contrast given. No oral contrast per request. Findings: Evaluation of solid viscera, bowel and vasculature is compromised by the noncontrast technique. Pleural-based nodular opacity in the left lung base posteriorly and inferiorly is again identified. Definite abnormality of the liver. Spleen is not enlarged. Small low-density splenic lesion is stable. Pancreas demonstrates no adjacent inflammatory change or fluid. No evidence of adrenal mass. There is a nodule in the soft tissues below the spleen may represent accessory splenule, unchanged since prior study. Mass arising from the upper pole of the left kidney appears stable, measures greater than simple fluid density. There is some density within the left renal parenchyma which is unchanged. No evidence of hydronephrosis or obstructive calculus. Gallbladder surgically absent. No significant aortic aneurysm. No significant lymph node enlargement. Mild distention of small bowel loops this is less prominent than what what was seen on the previous study. Difficult to evaluate for small bowel wall thickening/inflammation due to the lack of oral contrast but there is no evidence of visible fatty stranding. Percutaneous gastrostomy tube is identified. No evidence of ascites. No evidence of free intraperitoneal gas. No destructive bone lesion. Partially seen breast implants are identified. IMPRESSION: 1. Mild distention of small bowel loops, possibly an ileus. Difficult to rule out small bowel wall thickening or inflammation without oral contrast, but there is no evidence of adjacent fatty stranding. 2. Hypodensity left renal lesions appear similar to the previous exam. Outpatient ultrasound could further evaluate if not already performed. 3. Pleural-based lung nodule in the inferior posterior left lower lobe appears stable. Recommendations as per prior study. Electronically signed by: Lorenzo Broussard MD (03/14/2019 6:11 PM) [facility] DICTATED and SIGNED BY: LORENZO BROUSSARD MD DATE: 03/14/191810 PE: GEN: NAD HEENT: Atraumatic, PERRLA LUNGS: CTAB HEART: RRR, no murmurs ABD: Moderately distended abdomen with old well healed surgical scar. Ostomy in place. No rebound tenderness. EXTREMITY: No edema SKIN: No rashes, no jaundice NEURO/PSYCH: A & O 3 A/P: A 39 years old female patient with past reported medical history of ileocolonic Crohn's disease that was initially diagnosed in 2007. Patient reports she was initially managed with 5-ASA derivatives and burst of steroids. She was later switched to Humira and then Remicade but has been off any biologic agents for couple of years. She had been followed by Dr.Paresh Loco at [facility]. She was also seen at ( ? ). Patient reports her first surgical intervention was in 2010 with partial colectomy that was complicated by adhesion with bowel obstruction prompting another surgery with total colectomy and small bowel resection with ileostomy. She had also history of large tubo-ovarian abscess with extensive adhesions in the pelvic structures s/p laparoscopic guided surgical interventions in 2013. Patient nowfollows with Dr Holt with plan for surgery on 03/27. Patient now admitted with concern of small bowel obstruction with worsening of abdominal pain and distension along with decreased out put from ostomy. Recommendations - keep patient NPO at this time. - Continue with supportive cares including IVFs and TPN. - Monitor lytes and replace as needed. - DVT prophylaxis with increased risk of coagulopathy in setting of IBD. - Follow up with surgery. - Follow up with . Thank you for involving us in the care of this interesting patient. VANIA MEDINA MD March 16, 2019 14:13
[2019-03-16 15:00] VITALS: BP 119/93
[2019-03-16] MEDS ORDERED: ENOXAPARIN 40 MG/0.4 ML SYRINGE. SQ ONE (17:00)
[2019-03-16 19:30] VITALS: BP 108/77
[2019-03-16] MEDS: ONDANSETRON PF 4 MG/2 ML VIAL. IV PRN (19:34)
[2019-03-16] MEDS ORDERED: [UNRECOGNIZED DRUG - OTHER] IV SCH ×10 (22:00)
[2019-03-16] MEDS ORDERED: TOTAL PARENTERAL NUTRITION IV SCH ×10 (22:00)
[2019-03-16] MEDS ORDERED: AMINO ACID IV SCH ×10 (22:00)
[2019-03-16] MEDS ORDERED: DEXTROSE 70% IV SCH ×10 (22:00)
--- NOTE | 2019-03-16 23:07 | NUR ---
Rn in room for assessment - pt reporting that the "fucking idiot "wouldn't let me talk or ask questions. Expressed discontent at having to deal with Dr Farris. Pt asked RN if knew dr - Rn reported did not. Pt stated hoped he would not be here the next day (03/17). Pt voiced multiple concerns and complaints. Rn attempted to reassure.Pt stated happy that this RN was RN for niht. Will continue to monitor.
[2019-03-16 23:55] VITALS: BP 110/71
[2019-03-17] MEDS: HYDROmorphone 2 MG/ML VIAL IV PRN ×10 (00:11→21:49)
[2019-03-17 03:45] VITALS: BP 110/69
[2019-03-17] MEDS: diphenhydrAMINE 50 MG/ML VIAL IVP PRN ×4 (04:01→22:14)
[2019-03-17 05:19] LABS: BASO % 1 % (0-3); EOS # 0.3 x10^3/uL (0.0-0.7); EOS % 6 % (0-3); HEMATOCRIT 32.8 % (36.0-47.0); HEMOGLOBIN 10.9 g/dL (12.0-15.5); LYMPH # 1.2 x10^3/uL (1.0-4.8); LYMPH % 26 % (24-48); MEAN CORPUSCULAR HEMOGLOBIN 32 pg (25-35); MEAN CORPUSCULAR HGB CONC 33 g/dL (31-37); MEAN CORPUSCULAR VOLUME 95 fL (79-100); MONO # 0.5 x10^3/uL (0.0-1.1); MONO % 10 % (0-9); NEUT # 2.5 x10^3uL (1.8-7.7); NEUT % 57 % (31-73); PLATELET COUNT 135 x10^3/uL (140-400); RED BLOOD COUNT 3.47 x10^6/uL (3.50-5.40); RED CELL DISTRIBUTION WIDTH 12.7 % (11.5-14.5); WHITE BLOOD COUNT 4.5 x10^3/uL (4.0-11.0)
[2019-03-17 05:59] LABS: ALBUMIN 3.1 g/dL (3.4-5.0); ALBUMIN/GLOBULIN RATIO 1.2 (1.0-1.7); CALCIUM 8.4 mg/dL (8.5-10.1); CREATININE 0.8 mg/dL (0.6-1.0); GFR 79.9; POTASSIUM 4.3 mmol/L (3.5-5.1); TOTAL BILIRUBIN 0.3 mg/dL (0.2-1.0); TOTAL PROTEIN 5.6 g/dL (6.4-8.2)
[2019-03-17 06:01] LABS: MAGNESIUM 1.8 mg/dL (1.8-2.4); PHOSPHORUS 3.1 mg/dL (2.6-4.7)
[2019-03-17 07:00] VITALS: BP 107/74
[2019-03-17] MEDS: ONDANSETRON PF 4 MG/2 ML VIAL. IV PRN (08:06)
[2019-03-17 11:00] VITALS: BP 112/68
[2019-03-17] MEDS: TPN PER PHARMACY MC PRN (12:39)
--- NOTE | 2019-03-17 12:44 | NUR ---
Pharmacy TPN Dosing Note S: MATTHEW HOLGUIN is a 39 year old F Currently receiving Central Continuous TPN started 03/15/19 B:Pertinent PMH: Crohn's disease; bowel obstruction Height: 5 feet, 7 inches Weight: 71.818275 kg Current diet: NPO LABS: Sodium: 141 Potassium: 4.3 Chloride: 107 Calcium: 8.4 Corrected Calcium: 9.12 Magnesium: 1.8 CO2: 26 SCr: 0.8 Glucose: 109 Albumin: 3.1 AST: 32 ALT: 51 TPN FORMULA: TPN TYPE: Central Continuous AMINO ACIDS: 70 gm DEXTROSE: 250 gm LIPIDS: 30 gm SODIUM CHLORIDE: 100 mEq SODIUM ACETATE: mEq SODIUM PHOSPHATE: mmol POTASSIUM CHLORIDE: 80 mEq POTASSIUM ACETATE: mEq POTASSIUM PHOSPHATE: 16 mmol MAGNESIUM: 15 mEq CALCIUM: 12 mEq INSULIN: units MULTIPLE VITAMIN: 10 ml TRACE ELEMENTS: 1 ml(s) TPN PLAN: No changes to TPN today, lytes and BG stable. BMP, phos, mag in am. R: Continue TPN ABOVE. Will monitor electrolytes, glucose, and tolerance to TPN. AVRIL BOATENG [facility], 03/17/19 [id number]
--- NOTE | 2019-03-17 13:34 | PDOC ---
PROGRESS NOTES Chief Complaint Chief Complaint Acute on chronic small bowel obstruction secondary to Crohn's B12 deficiency Hx of Carpal tunnel syndrome Nausea and vomiting Insomnia Crohn's - multiple complications, not in flare currently. GI following History of Present Illness History of Present Illness 39 F w/ PMHx crohns multiple complications, surgeries, ostomy who p/w SBO. Patient seen and examined. Discussed with Nurse Overnight did not sleep well. She wishes to continue her current dilaudid IV pain regimen, states she has a rash with toradol and would not like to receive it. 100cc ostomy output today as well as yesterday. Normally she has 3500cc ostomy output Ostomy site and prior surgical sites checked, clean with no inflammation. Abdomen is firm. Patient wants home TPN, I have let her know that we need an accepting physician for home TPN, either her PCP or surgeon Vitals Vitals Vital Signs Date Time Temp Pulse Resp B/P (MAP) Pulse Ox O2 Delivery O2 Flow Rate FiO2 03/17/19 12:30 Room Air 03/17/19 11:00 98.0 87 18 112/68 (83) 100 98.0 Physical Exam General: Alert, Oriented X3, Cooperative, mild distress Heart: Regular rate, Normal S1, Normal S2, No murmurs Lungs: Clear Abdomen: Soft, Other (tender lower abdomen, ostomy in place) Extremities: No clubbing, No cyanosis Skin: No rashes, No breakdown Labs LABS Laboratory Tests Test 03/17/19 05:00 White Blood Count 4.5 x10^3/uL (4.0-11.0) Red Blood Count 3.47 x10^6/uL (3.50-5.40) Hemoglobin 10.9 g/dL (12.0-15.5) Hematocrit 32.8 % (36.0-47.0) Mean Corpuscular Volume 95 fL (79-100) Mean Corpuscular Hemoglobin 32 pg (25-35) Mean Corpuscular Hemoglobin Concent 33 g/dL (31-37) Red Cell Distribution Width 12.7 % (11.5-14.5) Platelet Count 135 x10^3/uL (140-400) Neutrophils (%) (Auto) 57 % (31-73) Lymphocytes (%) (Auto) 26 % (24-48) Monocytes (%) (Auto) 10 % (0-9) Eosinophils (%) (Auto) 6 % (0-3) Basophils (%) (Auto) 1 % (0-3) Neutrophils # (Auto) 2.5 x10^3uL (1.8-7.7) Lymphocytes # (Auto) 1.2 x10^3/uL (1.0-4.8) Monocytes # (Auto) 0.5 x10^3/uL (0.0-1.1) Eosinophils # (Auto) 0.3 x10^3/uL (0.0-0.7) Basophils # (Auto) 0.0 x10^3/uL (0.0-0.2) Sodium Level 141 mmol/L (136-145) Potassium Level 4.3 mmol/L (3.5-5.1) Chloride Level 107 mmol/L (98-107) Carbon Dioxide Level 26 mmol/L (21-32) Anion Gap 8 (6-14) Blood Urea Nitrogen 9 mg/dL (7-20) Creatinine 0.8 mg/dL (0.6-1.0) Estimated GFR (Cockcroft-Gault) 79.9 BUN/Creatinine Ratio 11 (6-20) Glucose Level 109 mg/dL (70-99) Calcium Level 8.4 mg/dL (8.5-10.1) Phosphorus Level 3.1 mg/dL (2.6-4.7) Magnesium Level 1.8 mg/dL (1.8-2.4) Total Bilirubin 0.3 mg/dL (0.2-1.0) Aspartate Amino Transf (AST/SGOT) 33 U/L (15-37) Alanine Aminotransferase (ALT/SGPT) 55 U/L (14-59) Alkaline Phosphatase 68 U/L (46-116) Total Protein 5.6 g/dL (6.4-8.2) Albumin 3.1 g/dL (3.4-5.0) Albumin/Globulin Ratio 1.2 (1.0-1.7) Prealbumin 24.9 mg/dL (16.0-42.0) Comment Review of Relevant I have reviewed the following items kathy (where applicable) has been applied. Labs Laboratory Tests Test 03/16/19 05:40 03/17/19 05:00 White Blood Count 4.9 x10^3/uL (4.0-11.0) 4.5 x10^3/uL (4.0-11.0) Red Blood Count 3.62 x10^6/uL (3.50-5.40) 3.47 x10^6/uL (3.50-5.40) Hemoglobin 11.3 g/dL (12.0-15.5) 10.9 g/dL (12.0-15.5) Hematocrit 34.1 % (36.0-47.0) 32.8 % (36.0-47.0) Mean Corpuscular Volume 94 fL (79-100) 95 fL (79-100) Mean Corpuscular Hemoglobin 31 pg (25-35) 32 pg (25-35) Mean Corpuscular Hemoglobin Concent 33 g/dL (31-37) 33 g/dL (31-37) Red Cell Distribution Width 12.9 % (11.5-14.5) 12.7 % (11.5-14.5) Platelet Count 156 x10^3/uL (140-400) 135 x10^3/uL (140-400) Neutrophils (%) (Auto) 61 % (31-73) 57 % (31-73) Lymphocytes (%) (Auto) 24 % (24-48) 26 % (24-48) Monocytes (%) (Auto) 10 % (0-9) 10 % (0-9) Eosinophils (%) (Auto) 5 % (0-3) 6 % (0-3) Basophils (%) (Auto) 1 % (0-3) 1 % (0-3) Neutrophils # (Auto) 3.0 x10^3uL (1.8-7.7) 2.5 x10^3uL (1.8-7.7) Lymphocytes # (Auto) 1.2 x10^3/uL (1.0-4.8) 1.2 x10^3/uL (1.0-4.8) Monocytes # (Auto) 0.5 x10^3/uL (0.0-1.1) 0.5 x10^3/uL (0.0-1.1) Eosinophils # (Auto) 0.2 x10^3/uL (0.0-0.7) 0.3 x10^3/uL (0.0-0.7) Basophils # (Auto) 0.0 x10^3/uL (0.0-0.2) 0.0 x10^3/uL (0.0-0.2) Sodium Level 143 mmol/L (136-145) 141 mmol/L (136-145) Potassium Level 3.9 mmol/L (3.5-5.1) 4.3 mmol/L (3.5-5.1) Chloride Level 108 mmol/L (98-107) 107 mmol/L (98-107) Carbon Dioxide Level 28 mmol/L (21-32) 26 mmol/L (21-32) Anion Gap 7 (6-14) 8 (6-14) Blood Urea Nitrogen 11 mg/dL (7-20) 9 mg/dL (7-20) Creatinine 0.9 mg/dL (0.6-1.0) 0.8 mg/dL (0.6-1.0) Estimated GFR (Cockcroft-Gault) 69.7 79.9 Glucose Level 116 mg/dL (70-99) 109 mg/dL (70-99) Calcium Level 8.6 mg/dL (8.5-10.1) 8.4 mg/dL (8.5-10.1) Phosphorus Level 4.0 mg/dL (2.6-4.7) 3.1 mg/dL (2.6-4.7) Magnesium Level 1.8 mg/dL (1.8-2.4) 1.8 mg/dL (1.8-2.4) Triglycerides Level 114 mg/dL (0-150) BUN/Creatinine Ratio 11 (6-20) Total Bilirubin 0.3 mg/dL (0.2-1.0) Aspartate Amino Transf (AST/SGOT) 33 U/L (15-37) Alanine Aminotransferase (ALT/SGPT) 55 U/L (14-59) Alkaline Phosphatase 68 U/L (46-116) Total Protein 5.6 g/dL (6.4-8.2) Albumin 3.1 g/dL (3.4-5.0) Albumin/Globulin Ratio 1.2 (1.0-1.7) Prealbumin 24.9 mg/dL (16.0-42.0) Laboratory Tests Test 03/17/19 05:00 White Blood Count 4.5 x10^3/uL (4.0-11.0) Red Blood Count 3.47 x10^6/uL (3.50-5.40) Hemoglobin 10.9 g/dL (12.0-15.5) Hematocrit 32.8 % (36.0-47.0) Mean Corpuscular Volume 95 fL (79-100) Mean Corpuscular Hemoglobin 32 pg (25-35) Mean Corpuscular Hemoglobin Concent 33 g/dL (31-37) Red Cell Distribution Width 12.7 % (11.5-14.5) Platelet Count 135 x10^3/uL (140-400) Neutrophils (%) (Auto) 57 % (31-73) Lymphocytes (%) (Auto) 26 % (24-48) Monocytes (%) (Auto) 10 % (0-9) Eosinophils (%) (Auto) 6 % (0-3) Basophils (%) (Auto) 1 % (0-3) Neutrophils # (Auto) 2.5 x10^3uL (1.8-7.7) Lymphocytes # (Auto) 1.2 x10^3/uL (1.0-4.8) Monocytes # (Auto) 0.5 x10^3/uL (0.0-1.1) Eosinophils # (Auto) 0.3 x10^3/uL (0.0-0.7) Basophils # (Auto) 0.0 x10^3/uL (0.0-0.2) Sodium Level 141 mmol/L (136-145) Potassium Level 4.3 mmol/L (3.5-5.1) Chloride Level 107 mmol/L (98-107) Carbon Dioxide Level 26 mmol/L (21-32) Anion Gap 8 (6-14) Blood Urea Nitrogen 9 mg/dL (7-20) Creatinine 0.8 mg/dL (0.6-1.0) Estimated GFR (Cockcroft-Gault) 79.9 BUN/Creatinine Ratio 11 (6-20) Glucose Level 109 mg/dL (70-99) Calcium Level 8.4 mg/dL (8.5-10.1) Phosphorus Level 3.1 mg/dL (2.6-4.7) Magnesium Level 1.8 mg/dL (1.8-2.4) Total Bilirubin 0.3 mg/dL (0.2-1.0) Aspartate Amino Transf (AST/SGOT) 33 U/L (15-37) Alanine Aminotransferase (ALT/SGPT) 55 U/L (14-59) Alkaline Phosphatase 68 U/L (46-116) Total Protein 5.6 g/dL (6.4-8.2) Albumin 3.1 g/dL (3.4-5.0) Albumin/Globulin Ratio 1.2 (1.0-1.7) Prealbumin 24.9 mg/dL (16.0-42.0) Microbiology 03/14/19 Urine Culture - Final, Complete 03/14/19 Urine Culture Result 1 (LIONEL) - Final, Complete Medications Current Medications Sodium Chloride 1,000 ml @ 1,000 mls/hr Q1H IV Last administered on 03/14/19 16:22; Start 03/14/19 at 16:45; Stop 03/14/19 at 17:44; Status DC Hydromorphone HCl (Dilaudid) 2 mg 1X ONCE IV Last administered on 03/14/19at 16:26; Start 03/14/19 at 16:15; Stop 03/14/19 at 16:19; Status DC Ondansetron HCl (Zofran) 4 mg 1X ONCE IV Last administered on 03/14/19at 16:25; Start 03/14/19 at 16:45; Stop 03/14/19 at 16:46; Status DC Sodium Chloride 1,000 ml @ 1,000 mls/hr 1X ONCE IV Last administered on 03/14/19at 16:49; Start 03/14/19 at 16:45; Stop 03/14/19 at 17:44; Status DC Hydromorphone HCl (Dilaudid) 1 mg 1X ONCE IV Last administered on 03/14/19at 17:17; Start 03/14/19 at 17:15; Stop 03/14/19 at 17:16; Status DC Sodium Chloride 1,000 ml @ 1,000 mls/hr 1X ONCE IV Last administered on 03/14/19at 19:06; Start 03/14/19 at 19:00; Stop 03/14/19 at 19:59; Status DC Hydromorphone HCl (Dilaudid) 1 mg 1X ONCE IV Last administered on 03/14/19 19:06; Start 03/14/19 at 19:30; Stop 03/14/19 at 19:31; Status DC Ondansetron HCl (Zofran) 4 mg 1X ONCE IV Last administered on 03/14/19 19:09; Start 03/14/19 at 19:45; Stop 03/14/19 at 19:46; Status DC Amino Acids/ Glycerin/ Electrolytes 1,000 ml @ 75 mls/hr [id number] IV Last administered on 03/14/19 21:32; Start 03/14/19 at 19:45; Stop 03/15/19 at 09:47; Status DC Ondansetron HCl (Zofran) 4 mg PRN Q8HRS PRN IV NAUSEA/VOMITING Last administered on 03/15/19 16:02; Start 03/14/19 at 20:00; Stop 03/15/19 at 19:59; Status DC Hydromorphone HCl (Dilaudid) 1 mg PRN Q2HRS PRN IV pain Last administered on 03/17/19 12:30; Start 03/14/19 at 20:00 Diphenhydramine HCl (Benadryl) 50 mg PRN Q6HRS PRN IVP ITCHING Last administered on 03/17/19 10:34; Start 03/14/19 at 21:15 Info (Tpn Per Pharmacy) 1 each PRN DAILY PRN MC SEE COMMENTS Last administered on 03/17/19 12:39; Start 03/15/19 at 09:45 Levofloxacin/ Dextrose 100 ml @ 100 mls/hr Q24H IV Last administered on 03/16/19 12:56; Start 03/15/19 at 13:00 Sodium Chloride 100 meq/Potassium Chloride 80 meq/ Potassium Phosphate 16 mmol/ Magnesium Sulfate 15 meq/Calcium Gluconate 12 meq/ Multivitamins 10 ml/Chromium/ Copper/Manganese/ Seleni/Zn 1 ml/ Total Parenteral Nutrition/Amino Acids/Dextrose/ Fat Emulsion Intravenous 1,512 ml @ 63 mls/hr TPN CONT IV Last administered on 03/15/19 21:28; Start 03/15/19 at 22:00; Stop 03/16/19 at 21:59; Status DC Ondansetron HCl (Zofran) 8 mg PRN Q8HRS PRN IV NAUSEA/VOMITING Last administered on 03/17/19at 08:06; Start 03/16/19 at 09:30 Clonazepam (KlonoPIN) 1 mg PRN BID PRN PO ANXIETY / AGITATION Last administered on 03/16/19at 10:44; Start 03/16/19 at 09:30 Simethicone (Gas-X) 120 mg PRN DAILY PRN PO REFLUX Last administered on 03/16/19at 13:02; Start 03/16/19 at 09:45 Sodium Chloride 100 meq/Potassium Chloride 80 meq/ Potassium Phosphate 16 mmol/ Magnesium Sulfate 15 meq/Calcium Gluconate 12 meq/ Multivitamins 10 ml/Chromium/ Copper/Manganese/ Seleni/Zn 1 ml/ Total Parenteral Nutrition/Amino Acids/Dextrose/ Fat Emulsion Intravenous 1,512 ml @ 63 mls/hr TPN CONT IV Last administered on 03/16/19at 21:45; Start 03/16/19 at 22:00; Stop 03/17/19 at 21:59 Enoxaparin Sodium (Lovenox 40mg Syringe) 40 mg 1X ONCE SQ Last administered on 03/16/19at 17:17; Start 03/16/19 at 17:00; Stop 03/16/19 at 17:01; Status DC Sodium Chloride 100 meq/Potassium Chloride 80 meq/ Potassium Phosphate 16 mmol/ Magnesium Sulfate 15 meq/Calcium Gluconate 12 meq/ Multivitamins 10 ml/Chromium/ Copper/Manganese/ Seleni/Zn 1 ml/ Total Parenteral Nutrition/Amino Acids/Dextros e/ Fat Emulsion Intravenous 1,512 ml @ 63 mls/hr TPN CONT IV ; Start 03/17/19 at 22:00; Stop 03/18/19 at 21:59 Active Scripts Active Reported [dilaudid liquid] 1.5 Mg PO PRN Q8HRS PRN [ferous sulfate] Mg PO DAILY [vitamin B12 inject.] MONTHLY Vitamin D3 (Cholecalciferol (Vitamin D3)) 5,000 Unit Tablet 5,000 Unit PO WEEKLY Tablet (Pnv Cmb#95/Ferrous Fumarate/Fa) 1 Each Tablet 1 Tab PO DAILY Benadryl (Diphenhydramine Hcl) 25 Mg Capsule 25 Mg PO PRN Q4-6HRS PRN Zofran Odt (Ondansetron) 4 Mg Tab.rapdis 4 Mg PO BID PRN Biotin 10,000 Mcg Tab.rapdis 10,000 Mcg PO DAILY Simethicone 125 Mg Capsule 125 Mg PO PRN DAILY PRN Pantoprazole Sodium 40 Mg Tablet.dr 40 Mg PO DAILY Clonazepam 1 Mg Tablet 1 Tab PO PRN BID PRN Vitals/I & O Vital Sign - Last 24 Hours 03/16/19 03/16/19 03/16/19 03/16/19 15:00 15:09 15:39 19:30 Temp 97.7 98.2 97.7 98.2 Pulse 98 92 Resp 17 18 20 B/P (MAP) 119/93 (102) 108/77 (87) Pulse Ox 100 98 95 100 O2 Delivery Room Air Room Air Room Air 03/16/19 03/16/19 03/16/19 03/17/19 19:38 21:45 23:55 00:35 Temp 97.7 97.7 Pulse 89 Resp 18 18 20 16 B/P (MAP) 110/71 (84) Pulse Ox 99 O2 Delivery Room Air Room Air Room Air 03/17/19 03/17/19 03/17/19 03/17/19 02:27 03:45 07:00 08:07 Temp 97.9 98.0 97.9 98.0 Pulse 82 77 Resp 18 20 18 B/P (MAP) 110/69 (83) 107/74 (85) Pulse Ox 99 100 O2 Delivery Nasal Cannula Room Air Room Air Room Air 03/17/19 03/17/19 03/17/19 03/17/19 10:36 11:00 11:06 12:30 Temp 98.0 98.0 Pulse 87 Resp 18 B/P (MAP) 112/68 (83) Pulse Ox 100 O2 Delivery Room Air Room Air Room Air Room Air Intake and Output 03/16/19 03/16/19 03/17/19 15:00 23:00 07:00 Intake Total 835 ml 0 ml Output Total 650 ml 200 ml Balance 185 ml -200 ml MEL AREVALO MD March 17, 2019 13:34
[2019-03-17 15:00] VITALS: BP 110/64
[2019-03-17 19:53] VITALS: BP 99/65
[2019-03-17] MEDS ORDERED: [UNRECOGNIZED DRUG - OTHER] IV SCH ×10 (22:00)
[2019-03-17] MEDS ORDERED: TOTAL PARENTERAL NUTRITION IV SCH ×10 (22:00)
[2019-03-17] MEDS ORDERED: AMINO ACID IV SCH ×10 (22:00)
[2019-03-17] MEDS ORDERED: DEXTROSE 70% IV SCH ×10 (22:00)
--- NOTE | 2019-03-17 22:10 | NUR ---
Port deaccessed and reaccessed without difficulty - sterile technique maintained - good blood return noted - flushed without difficulty. Pt tolerated well.
[2019-03-17 23:50] VITALS: BP 116/73
[2019-03-18] MEDS: HYDROmorphone 2 MG/ML VIAL IV PRN ×11 (00:20→22:02)
[2019-03-18 03:45] VITALS: BP 111/68
[2019-03-18] MEDS: diphenhydrAMINE 50 MG/ML VIAL IVP PRN ×3 (04:44→17:46)
[2019-03-18 05:39] LABS: BASO % 0 % (0-3); EOS # 0.3 x10^3/uL (0.0-0.7); EOS % 6 % (0-3); HEMOGLOBIN 10.8 g/dL (12.0-15.5); LYMPH # 1.2 x10^3/uL (1.0-4.8); LYMPH % 24 % (24-48); MEAN CORPUSCULAR HEMOGLOBIN 33 pg (25-35); MEAN CORPUSCULAR HGB CONC 34 g/dL (31-37); MEAN CORPUSCULAR VOLUME 97 fL (79-100); MONO # 0.5 x10^3/uL (0.0-1.1); MONO % 10 % (0-9); NEUT # 3.1 x10^3uL (1.8-7.7); NEUT % 61 % (31-73); PLATELET COUNT 133 x10^3/uL (140-400); RED BLOOD COUNT 3.31 x10^6/uL (3.50-5.40); WHITE BLOOD COUNT 5.1 x10^3/uL (4.0-11.0)
[2019-03-18 07:00] VITALS: BP 106/64
[2019-03-18 07:10] LABS: CALCIUM 8.3 mg/dL (8.5-10.1); CREATININE 0.8 mg/dL (0.6-1.0); GFR 79.9; MAGNESIUM 1.8 mg/dL (1.8-2.4); PHOSPHORUS 3.4 mg/dL (2.6-4.7); POTASSIUM 4.1 mmol/L (3.5-5.1)
[2019-03-18] MEDS: ONDANSETRON PF 4 MG/2 ML VIAL. IV PRN (08:09)
[2019-03-18] MEDS: PANTOPRAZOLE IV PUSH 40 MG VIAL. IVP SCH (08:55)
[2019-03-18 11:00] VITALS: BP 124/77
[2019-03-18] MEDS: TPN PER PHARMACY MC PRN (11:02)
--- NOTE | 2019-03-18 11:04 | NUR ---
Pharmacy TPN Dosing Note S: MATTHEW HOLGUIN is a 39 year old F Currently receiving Central Continuous TPN started 03/15/19 B:Pertinent PMH: Crohn's disease; bowel obstruction Height: 5 feet, 7 inches Weight: 71.2 kg Current diet: NPO LABS: Sodium: 139 Potassium: 4.1 Chloride: 105 Calcium: 8.3 Corrected Calcium: 9.02 Magnesium: 1.8 CO2: 28 SCr: 0.8 Glucose: 94 Albumin: 3.1 AST: 33 ALT: 55 TPN FORMULA: TPN TYPE: Central Continuous AMINO ACIDS: 70 gm DEXTROSE: 250 gm LIPIDS: 30 gm SODIUM CHLORIDE: 100 mEq POTASSIUM CHLORIDE: 80 mEq POTASSIUM PHOSPHATE: 16 mmol MAGNESIUM: 15 mEq CALCIUM: 12 mEq MULTIPLE VITAMIN: 10 ml TRACE ELEMENTS: 1 ml TPN PLAN: -Electrolytes appear WNL and stable, continue same TPN. -BMP tomorrow per primary. R: Continue TPN @ current rate and above formula. Will monitor electrolytes, glucose, and tolerance to TPN. KATERINA RESENDIZ [facility], 03/18/19 [id number]
--- NOTE | 2019-03-18 11:46 | PDOC ---
PROGRESS NOTES Chief Complaint Chief Complaint Acute on chronic small bowel obstruction secondary to Crohn's B12 deficiency Hx of Carpal tunnel syndrome Nausea and vomiting Insomnia Crohn's - multiple complications, not in flare currently. GI following History of Present Illness History of Present Illness Has been nothing by mouth and TPN running via right Port-A-Cath Apparently was promised by a colleague that he will talk to the surgeons to move the surgery scheduled by her outside surgeon March 27 to sometime sooner-I told her that we do not do that She understands Labs okay She is walking about. I provided a copy of her CAT scan done 4 days ago which shows ileus Plan Keep nothing by mouth and TPN for now Check acute abdominal series She'll follow-up with her outpatient surgeon as scheduled. Our surgeons will not do anything surgical to this patient here for varied of reasons and I have discussed all those with her and she understands She'll try to irrigate the ostomy/stoma Low output than usual Vitals Vitals Vital Signs Date Time Temp Pulse Resp B/P (MAP) Pulse Ox O2 Delivery O2 Flow Rate FiO2 03/18/19 11:12 18 98 Room Air 03/18/19 11:00 98.0 87 124/77 (93) 98.0 Physical Exam General: Alert, Oriented X3, Cooperative, mild distress Heart: Regular rate, Normal S1, Normal S2, No murmurs Lungs: Clear Abdomen: Soft, Other (tender lower abdomen, ostomy in place) Extremities: No clubbing, No cyanosis Skin: No rashes, No breakdown Labs LABS Laboratory Tests Test 03/18/19 05:00 03/18/19 06:40 White Blood Count 5.1 x10^3/uL (4.0-11.0) Red Blood Count 3.31 x10^6/uL (3.50-5.40) Hemoglobin 10.8 g/dL (12.0-15.5) Hematocrit 32.0 % (36.0-47.0) Mean Corpuscular Volume 97 fL (79-100) Mean Corpuscular Hemoglobin 33 pg (25-35) Mean Corpuscular Hemoglobin Concent 34 g/dL (31-37) Red Cell Distribution Width 13.0 % (11.5-14.5) Platelet Count 133 x10^3/uL (140-400) Neutrophils (%) (Auto) 61 % (31-73) Lymphocytes (%) (Auto) 24 % (24-48) Monocytes (%) (Auto) 10 % (0-9) Eosinophils (%) (Auto) 6 % (0-3) Basophils (%) (Auto) 0 % (0-3) Neutrophils # (Auto) 3.1 x10^3uL (1.8-7.7) Lymphocytes # (Auto) 1.2 x10^3/uL (1.0-4.8) Monocytes # (Auto) 0.5 x10^3/uL (0.0-1.1) Eosinophils # (Auto) 0.3 x10^3/uL (0.0-0.7) Basophils # (Auto) 0.0 x10^3/uL (0.0-0.2) Sodium Level 139 mmol/L (136-145) Potassium Level 4.1 mmol/L (3.5-5.1) Chloride Level 105 mmol/L (98-107) Carbon Dioxide Level 28 mmol/L (21-32) Anion Gap 6 (6-14) Blood Urea Nitrogen 11 mg/dL (7-20) Creatinine 0.8 mg/dL (0.6-1.0) Estimated GFR (Cockcroft-Gault) 79.9 Glucose Level 94 mg/dL (70-99) Calcium Level 8.3 mg/dL (8.5-10.1) Phosphorus Level 3.4 mg/dL (2.6-4.7) Magnesium Level 1.8 mg/dL (1.8-2.4) Review of Systems Review of Systems abd discomfort, nausea, feeling full easy, the rest of ROS negative Comment Review of Relevant I have reviewed the following items kathy (where applicable) has been applied. Labs Laboratory Tests Test 03/17/19 05:00 03/18/19 05:00 03/18/19 06:40 White Blood Count 4.5 x10^3/uL (4.0-11.0) 5.1 x10^3/uL (4.0-11.0) Red Blood Count 3.47 x10^6/uL (3.50-5.40) 3.31 x10^6/uL (3.50-5.40) Hemoglobin 10.9 g/dL (12.0-15.5) 10.8 g/dL (12.0-15.5) Hematocrit 32.8 % (36.0-47.0) 32.0 % (36.0-47.0) Mean Corpuscular Volume 95 fL (79-100) 97 fL (79-100) Mean Corpuscular Hemoglobin 32 pg (25-35) 33 pg (25-35) Mean Corpuscular Hemoglobin Concent 33 g/dL (31-37) 34 g/dL (31-37) Red Cell Distribution Width 12.7 % (11.5-14.5) 13.0 % (11.5-14.5) Platelet Count 135 x10^3/uL (140-400) 133 x10^3/uL (140-400) Neutrophils (%) (Auto) 57 % (31-73) 61 % (31-73) Lymphocytes (%) (Auto) 26 % (24-48) 24 % (24-48) Monocytes (%) (Auto) 10 % (0-9) 10 % (0-9) Eosinophils (%) (Auto) 6 % (0-3) 6 % (0-3) Basophils (%) (Auto) 1 % (0-3) 0 % (0-3) Neutrophils # (Auto) 2.5 x10^3uL (1.8-7.7) 3.1 x10^3uL (1.8-7.7) Lymphocytes # (Auto) 1.2 x10^3/uL (1.0-4.8) 1.2 x10^3/uL (1.0-4.8) Monocytes # (Auto) 0.5 x10^3/uL (0.0-1.1) 0.5 x10^3/uL (0.0-1.1) Eosinophils # (Auto) 0.3 x10^3/uL (0.0-0.7) 0.3 x10^3/uL (0.0-0.7) Basophils # (Auto) 0.0 x10^3/uL (0.0-0.2) 0.0 x10^3/uL (0.0-0.2) Sodium Level 141 mmol/L (136-145) 139 mmol/L (136-145) Potassium Level 4.3 mmol/L (3.5-5.1) 4.1 mmol/L (3.5-5.1) Chloride Level 107 mmol/L (98-107) 105 mmol/L (98-107) Carbon Dioxide Level 26 mmol/L (21-32) 28 mmol/L (21-32) Anion Gap 8 (6-14) 6 (6-14) Blood Urea Nitrogen 9 mg/dL (7-20) 11 mg/dL (7-20) Creatinine 0.8 mg/dL (0.6-1.0) 0.8 mg/dL (0.6-1.0) Estimated GFR (Cockcroft-Gault) 79.9 79.9 BUN/Creatinine Ratio 11 (6-20) Glucose Level 109 mg/dL (70-99) 94 mg/dL (70-99) Calcium Level 8.4 mg/dL (8.5-10.1) 8.3 mg/dL (8.5-10.1) Phosphorus Level 3.1 mg/dL (2.6-4.7) 3.4 mg/dL (2.6-4.7) Magnesium Level 1.8 mg/dL (1.8-2.4) 1.8 mg/dL (1.8-2.4) Total Bilirubin 0.3 mg/dL (0.2-1.0) Aspartate Amino Transf (AST/SGOT) 33 U/L (15-37) Alanine Aminotransferase (ALT/SGPT) 55 U/L (14-59) Alkaline Phosphatase 68 U/L (46-116) Total Protein 5.6 g/dL (6.4-8.2) Albumin 3.1 g/dL (3.4-5.0) Albumin/Globulin Ratio 1.2 (1.0-1.7) Prealbumin 24.9 mg/dL (16.0-42.0) Laboratory Tests Test 03/18/19 05:00 03/18/19 06:40 White Blood Count 5.1 x10^3/uL (4.0-11.0) Red Blood Count 3.31 x10^6/uL (3.50-5.40) Hemoglobin 10.8 g/dL (12.0-15.5) Hematocrit 32.0 % (36.0-47.0) Mean Corpuscular Volume 97 fL (79-100) Mean Corpuscular Hemoglobin 33 pg (25-35) Mean Corpuscular Hemoglobin Concent 34 g/dL (31-37) Red Cell Distribution Width 13.0 % (11.5-14.5) Platelet Count 133 x10^3/uL (140-400) Neutrophils (%) (Auto) 61 % (31-73) Lymphocytes (%) (Auto) 24 % (24-48) Monocytes (%) (Auto) 10 % (0-9) Eosinophils (%) (Auto) 6 % (0-3) Basophils (%) (Auto) 0 % (0-3) Neutrophils # (Auto) 3.1 x10^3uL (1.8-7.7) Lymphocytes # (Auto) 1.2 x10^3/uL (1.0-4.8) Monocytes # (Auto) 0.5 x10^3/uL (0.0-1.1) Eosinophils # (Auto) 0.3 x10^3/uL (0.0-0.7) Basophils # (Auto) 0.0 x10^3/uL (0.0-0.2) Sodium Level 139 mmol/L (136-145) Potassium Level 4.1 mmol/L (3.5-5.1) Chloride Level 105 mmol/L (98-107) Carbon Dioxide Level 28 mmol/L (21-32) Anion Gap 6 (6-14) Blood Urea Nitrogen 11 mg/dL (7-20) Creatinine 0.8 mg/dL (0.6-1.0) Estimated GFR (Cockcroft-Gault) 79.9 Glucose Level 94 mg/dL (70-99) Calcium Level 8.3 mg/dL (8.5-10.1) Phosphorus Level 3.4 mg/dL (2.6-4.7) Magnesium Level 1.8 mg/dL (1.8-2.4) Microbiology 03/14/19 Urine Culture - Final, Complete 03/14/19 Urine Culture Result 1 (LIONEL) - Final, Complete Medications Current Medications Sodium Chloride 1,000 ml @ 1,000 mls/hr Q1H IV Last administered on 03/14/19at 16:22; Start 03/14/19 at 16:45; Stop 03/14/19 at 17:44; Status DC Hydromorphone HCl (Dilaudid) 2 mg 1X ONCE IV Last administered on 03/14/19at 16:26; Start 03/14/19 at 16:15; Stop 03/14/19 at 16:19; Status DC Ondansetron HCl (Zofran) 4 mg 1X ONCE IV Last administered on 03/14/19at 16:25; Start 03/14/19 at 16:45; Stop 03/14/19 at 16:46; Status DC Sodium Chloride 1,000 ml @ 1,000 mls/hr 1X ONCE IV Last administered on 03/14/19at 16:49; Start 03/14/19 at 16:45; Stop 03/14/19 at 17:44; Status DC Hydromorphone HCl (Dilaudid) 1 mg 1X ONCE IV Last administered on 03/14/19at 17:17; Start 03/14/19 at 17:15; Stop 03/14/19 at 17:16; Status DC Sodium Chloride 1,000 ml @ 1,000 mls/hr 1X ONCE IV Last administered on 03/14/19 19:06; Start 03/14/19 at 19:00; Stop 03/14/19 at 19:59; Status DC Hydromorphone HCl (Dilaudid) 1 mg 1X ONCE IV Last administered on 03/14/19 19:06; Start 03/14/19 at 19:30; Stop 03/14/19 at 19:31; Status DC Ondansetron HCl (Zofran) 4 mg 1X ONCE IV Last administered on 03/14/19at 19:09; Start 03/14/19 at 19:45; Stop 03/14/19 at 19:46; Status DC Amino Acids/ Glycerin/ Electrolytes 1,000 ml @ 75 mls/hr [id number] IV Last administered on 03/14/19at 21:32; Start 03/14/19 at 19:45; Stop 03/15/19 at 09:47; Status DC Ondansetron HCl (Zofran) 4 mg PRN Q8HRS PRN IV NAUSEA/VOMITING Last administered on 03/15/19at 16:02; Start 03/14/19 at 20:00; Stop 03/15/19 at 19:59; Status DC Hydromorphone HCl (Dilaudid) 1 mg PRN Q2HRS PRN IV pain Last administered on 03/18/19 11:12; Start 03/14/19 at 20:00 Diphenhydramine HCl (Benadryl) 50 mg PRN Q6HRS PRN IVP ITCHING Last administered on 03/18/19 11:19; Start 03/14/19 at 21:15 Info (Tpn Per Pharmacy) 1 each PRN DAILY PRN MC SEE COMMENTS Last administered on 03/18/19 11:02; Start 03/15/19 at 09:45 Levofloxacin/ Dextrose 100 ml @ 100 mls/hr Q24H IV Last administered on 03/17/19 14:42; Start 03/15/19 at 13:00 Sodium Chloride 100 meq/Potassium Chloride 80 meq/ Potassium Phosphate 16 mmol/ Magnesium Sulfate 15 meq/Calcium Gluconate 12 meq/ Multivitamins 10 ml/Chromium/ Copper/Manganese/ Seleni/Zn 1 ml/ Total Parenteral Nutrition/Amino Acids/Dextrose/ Fat Emulsion Intravenous 1,512 ml @ 63 mls/hr TPN CONT IV Last administered on 03/15/19 21:28; Start 03/15/19 at 22:00; Stop 03/16/19 at 21:59; Status DC Ondansetron HCl (Zofran) 8 mg PRN Q8HRS PRN IV NAUSEA/VOMITING Last adm inistered on 03/18/19 08:09; Start 03/16/19 at 09:30 Clonazepam (KlonoPIN) 1 mg PRN BID PRN PO ANXIETY / AGITATION Last administered on 03/16/19 10:44; Start 03/16/19 at 09:30 Simethicone (Gas-X) 120 mg PRN DAILY PRN PO REFLUX Last administered on 03/16/19 13:02; Start 03/16/19 at 09:45 Sodium Chloride 100 meq/Potassium Chloride 80 meq/ Potassium Phosphate 16 mmol/ Magnesium Sulfate 15 meq/Calcium Gluconate 12 meq/ Multivitamins 10 ml/Chromium/ Copper/Manganese/ Seleni/Zn 1 ml/ Total Parenteral Nutrition/Amino Acids/Dextrose/ Fat Emulsion Intravenous 1,512 ml @ 63 mls/hr TPN CONT IV Last administered on 03/16/19 21:45; Start 03/16/19 at 22:00; Stop 03/17/19 at 21:59; Status DC Enoxaparin Sodium (Lovenox 40mg Syringe) 40 mg 1X ONCE SQ Last administered on 03/16/19at 17:17; Start 03/16/19 at 17:00; Stop 03/16/19 at 17:01; Status DC Sodium Chloride 100 meq/Potassium Chloride 80 meq/ Potassium Phosphate 16 mmol/ Magnesium Sulfate 15 meq/Calcium Gluconate 12 meq/ Multivitamins 10 ml/Chromium/ Copper/Manganese/ Seleni/Zn 1 ml/ Total Parenteral Nutrition/Amino Acids/Dextrose/ Fat Emulsion Intravenous 1,512 ml @ 63 mls/hr TPN CONT IV Last administered on 03/17/19at 21:47; Start 03/17/19 at 22:00; Stop 03/18/19 at 21:59 Pantoprazole Sodium (PROTONIX VIAL for IV PUSH) 40 mg DAILYAC IVP Last administered on 03/18/19at 08:55; Start 03/18/19 at 09:00 Sodium Chloride 100 meq/Potassium Chloride 80 meq/ Potassium Phosphate 16 mmol/ Magnesium Sulfate 15 meq/Calcium Gluconate 12 meq/ Multivitamins 10 ml/Chromium/ Copper/Manganese/ Seleni/Zn 1 ml/ Total Parenteral Nutrition/Amino Acids/Dextrose/ Fat Emulsion Intravenous 1,512 ml @ 63 mls/hr TPN CONT IV ; Start 03/18/19 at 22:00; Stop 03/19/19 at 21:59 Active Scripts Active Reported [dilaudid liquid] 1.5 Mg PO PRN Q8HRS PRN [ferous sulfate] Mg PO DAILY [vitamin B12 inject.] MONTHLY Vitamin D3 (Cholecalciferol (Vitamin D3)) 5,000 Unit Tablet 5,000 Unit PO WEEKLY Tablet (Pnv Cmb#95/Ferrous Fumarate/Fa) 1 Each Tablet 1 Tab PO DAILY Benadryl (Diphenhydramine Hcl) 25 Mg Capsule 25 Mg PO PRN Q4-6HRS PRN Zofran Odt (Ondansetron) 4 Mg Tab.rapdis 4 Mg PO BID PRN Biotin 10,000 Mcg Tab.rapdis 10,000 Mcg PO DAILY Simethicone 125 Mg Capsule 125 Mg PO PRN DAILY PRN Pantoprazole Sodium 40 Mg Tablet.dr 40 Mg PO DAILY Clonazepam 1 Mg Tablet 1 Tab PO PRN BID PRN Vitals/I & O Vital Sign - Last 24 Hours 03/17/19 03/17/19 03/17/19 03/17/19 12:30 14:48 15:00 16:59 Temp 98.1 98.1 Pulse 89 Resp 20 B/P (MAP) 110/64 (79) Pulse Ox 100 O2 Delivery Room Air Room Air Room Air Room Air 03/17/19 03/17/19 03/17/19 03/17/19 19:13 19:41 19:53 21:49 Temp 98.3 98.3 Pulse 84 Resp 20 B/P (MAP) 99/65 (76) Pulse Ox 94 O2 Delivery Room Air Room Air Room Air Room Air 03/17/19 03/18/19 03/18/19 03/18/19 23:50 03:45 07:00 08:49 Temp 98.1 97.9 98.3 98.1 97.9 98.3 Pulse 77 84 90 Resp 20 20 18 18 B/P (MAP) 116/73 (87) 111/68 (82) 106/64 (78) Pulse Ox 96 95 99 99 O2 Delivery Room Air Room Air Room Air Room Air 03/18/19 03/18/19 11:00 11:12 Temp 98.0 98.0 Pulse 87 Resp 18 18 B/P (MAP) 124/77 (93) Pulse Ox 98 98 O2 Delivery Room Air Room Air Intake and Output 03/17/19 03/17/19 03/18/19 15:00 23:00 07:00 Intake Total 0 ml 1174 ml 0 ml Output Total 525 ml Balance -525 ml 1174 ml 0 ml BLAYNE DEY MD March 18, 2019 11:46
--- NOTE | 2019-03-18 12:23 | PDOC ---
[facility] [employer] 03/18/19 1223: SURGICAL PROGRESS NOTE Subjective she is asking about irrigating ostomy, sometimes that helps continued nausea, dry heaves working toward home tpn Vital Signs Vital Signs Date Time Temp Pulse Resp B/P (MAP) Pulse Ox O2 Delivery O2 Flow Rate FiO2 03/18/19 11:12 18 98 Room Air 03/18/19 11:00 98.0 87 124/77 (93) 98.0 I&O Intake and Output 03/18/19 06:59 Intake Total 1174 ml Output Total 525 ml Balance 649 ml Intake Oral 0 ml IV Total 1174 ml Output Urine Total 500 ml Stool Total 25 ml General: Alert, Oriented X3, Cooperative, No acute distress Abdomen: Soft Labs Laboratory Tests Test 03/17/19 05:00 03/18/19 05:00 03/18/19 06:40 White Blood Count 4.5 x10^3/uL (4.0-11.0) 5.1 x10^3/uL (4.0-11.0) Red Blood Count 3.47 x10^6/uL (3.50-5.40) 3.31 x10^6/uL (3.50-5.40) Hemoglobin 10.9 g/dL (12.0-15.5) 10.8 g/dL (12.0-15.5) Hematocrit 32.8 % (36.0-47.0) 32.0 % (36.0-47.0) Mean Corpuscular Volume 95 fL (79-100) 97 fL (79-100) Mean Corpuscular Hemoglobin 32 pg (25-35) 33 pg (25-35) Mean Corpuscular Hemoglobin Concent 33 g/dL (31-37) 34 g/dL (31-37) Red Cell Distribution Width 12.7 % (11.5-14.5) 13.0 % (11.5-14.5) Platelet Count 135 x10^3/uL (140-400) 133 x10^3/uL (140-400) Neutrophils (%) (Auto) 57 % (31-73) 61 % (31-73) Lymphocytes (%) (Auto) 26 % (24-48) 24 % (24-48) Monocytes (%) (Auto) 10 % (0-9) 10 % (0-9) Eosinophils (%) (Auto) 6 % (0-3) 6 % (0-3) Basophils (%) (Auto) 1 % (0-3) 0 % (0-3) Neutrophils # (Auto) 2.5 x10^3uL (1.8-7.7) 3.1 x10^3uL (1.8-7.7) Lymphocytes # (Auto) 1.2 x10^3/uL (1.0-4.8) 1.2 x10^3/uL (1.0-4.8) Monocytes # (Auto) 0.5 x10^3/uL (0.0-1.1) 0.5 x10^3/uL (0.0-1.1) Eosinophils # (Auto) 0.3 x10^3/uL (0.0-0.7) 0.3 x10^3/uL (0.0-0.7) Basophils # (Auto) 0.0 x10^3/uL (0.0-0.2) 0.0 x10^3/uL (0.0-0.2) Sodium Level 141 mmol/L (136-145) 139 mmol/L (136-145) Potassium Level 4.3 mmol/L (3.5-5.1) 4.1 mmol/L (3.5-5.1) Chloride Level 107 mmol/L (98-107) 105 mmol/L (98-107) Carbon Dioxide Level 26 mmol/L (21-32) 28 mmol/L (21-32) Anion Gap 8 (6-14) 6 (6-14) Blood Urea Nitrogen 9 mg/dL (7-20) 11 mg/dL (7-20) Creatinine 0.8 mg/dL (0.6-1.0) 0.8 mg/dL (0.6-1.0) Estimated GFR (Cockcroft-Gault) 79.9 79.9 BUN/Creatinine Ratio 11 (6-20) Glucose Level 109 mg/dL (70-99) 94 mg/dL (70-99) Calcium Level 8.4 mg/dL (8.5-10.1) 8.3 mg/dL (8.5-10.1) Phosphorus Level 3.1 mg/dL (2.6-4.7) 3.4 mg/dL (2.6-4.7) Magnesium Level 1.8 mg/dL (1.8-2.4) 1.8 mg/dL (1.8-2.4) Total Bilirubin 0.3 mg/dL (0.2-1.0) Aspartate Amino Transf (AST/SGOT) 33 U/L (15-37) Alanine Aminotransferase (ALT/SGPT) 55 U/L (14-59) Alkaline Phosphatase 68 U/L (46-116) Total Protein 5.6 g/dL (6.4-8.2) Albumin 3.1 g/dL (3.4-5.0) Albumin/Globulin Ratio 1.2 (1.0-1.7) Prealbumin 24.9 mg/dL (16.0-42.0) Laboratory Tests Test 03/18/19 05:00 03/18/19 06:40 White Blood Count 5.1 x10^3/uL (4.0-11.0) Red Blood Count 3.31 x10^6/uL (3.50-5.40) Hemoglobin 10.8 g/dL (12.0-15.5) Hematocrit 32.0 % (36.0-47.0) Mean Corpuscular Volume 97 fL (79-100) Mean Corpuscular Hemoglobin 33 pg (25-35) Mean Corpuscular Hemoglobin Concent 34 g/dL (31-37) Red Cell Distribution Width 13.0 % (11.5-14.5) Platelet Count 133 x10^3/uL (140-400) Neutrophils (%) (Auto) 61 % (31-73) Lymphocytes (%) (Auto) 24 % (24-48) Monocytes (%) (Auto) 10 % (0-9) Eosinophils (%) (Auto) 6 % (0-3) Basophils (%) (Auto) 0 % (0-3) Neutrophils # (Auto) 3.1 x10^3uL (1.8-7.7) Lymphocytes # (Auto) 1.2 x10^3/uL (1.0-4.8) Monocytes # (Auto) 0.5 x10^3/uL (0.0-1.1) Eosinophils # (Auto) 0.3 x10^3/uL (0.0-0.7) Basophils # (Auto) 0.0 x10^3/uL (0.0-0.2) Sodium Level 139 mmol/L (136-145) Potassium Level 4.1 mmol/L (3.5-5.1) Chloride Level 105 mmol/L (98-107) Carbon Dioxide Level 28 mmol/L (21-32) Anion Gap 6 (6-14) Blood Urea Nitrogen 11 mg/dL (7-20) Creatinine 0.8 mg/dL (0.6-1.0) Estimated GFR (Cockcroft-Gault) 79.9 Glucose Level 94 mg/dL (70-99) Calcium Level 8.3 mg/dL (8.5-10.1) Phosphorus Level 3.4 mg/dL (2.6-4.7) Magnesium Level 1.8 mg/dL (1.8-2.4) Assessment/Plan work toward dc and FU as scheduled for surgery with LEEANNE Colvin MD 03/18/19 1612: SURGICAL PROGRESS NOTE Assessment/Plan Pt seen and examined. Agree with Ms. Carl's note Pt with c/o cont n/v, abd pain, min ostomy output would not favor ostomy flushing, given risk of perforation cont TPN and supportive care surgical plans per [facility]E [facility]ral [employer] March 18, 2019 12:23 LEEANNE OLVERA MD March 18, 2019 16:12
--- NOTE | 2019-03-18 13:35 | NUR ---
MELISA following pt. MELISA phoned and faxed clinicals to [facility]. They reported pt's primary insurance will only cover home TPN if Pt's condition is hereditary. MELISA faxed pt's medicare cards so they can assess more benefits. Will continue to follow.
--- NOTE | 2019-03-18 14:36 | PDOC ---
Objective: Objective: Reviewed chart, d/w RN earlier - questions about ostomy irrigation. Vital Signs: Vital Signs Date Time Temp Pulse Resp B/P (MAP) Pulse Ox O2 Delivery O2 Flow Rate FiO2 03/18/19 13:30 18 98 Room Air 03/18/19 11:00 98.0 87 124/77 (93) 98.0 Labs: Laboratory Tests Test 03/18/19 05:00 03/18/19 06:40 White Blood Count 5.1 x10^3/uL Red Blood Count 3.31 x10^6/uL Hemoglobin 10.8 g/dL Hematocrit 32.0 % Mean Corpuscular Volume 97 fL Mean Corpuscular Hemoglobin 33 pg Mean Corpuscular Hemoglobin Concent 34 g/dL Red Cell Distribution Width 13.0 % Platelet Count 133 x10^3/uL Neutrophils (%) (Auto) 61 % Lymphocytes (%) (Auto) 24 % Monocytes (%) (Auto) 10 % Eosinophils (%) (Auto) 6 % Basophils (%) (Auto) 0 % Neutrophils # (Auto) 3.1 x10^3uL Lymphocytes # (Auto) 1.2 x10^3/uL Monocytes # (Auto) 0.5 x10^3/uL Eosinophils # (Auto) 0.3 x10^3/uL Basophils # (Auto) 0.0 x10^3/uL Sodium Level 139 mmol/L Potassium Level 4.1 mmol/L Chloride Level 105 mmol/L Carbon Dioxide Level 28 mmol/L Anion Gap 6 Blood Urea Nitrogen 11 mg/dL Creatinine 0.8 mg/dL Estimated GFR (Cockcroft-Gault) 79.9 Glucose Level 94 mg/dL Calcium Level 8.3 mg/dL Phosphorus Level 3.4 mg/dL Magnesium Level 1.8 mg/dL Imaging: CT A/P 03/14 IMPRESSION: 1. Mild distention of small bowel loops, possibly an ileus. Difficult to rule out small bowel wall thickening or inflammation without oral contrast, but there is no evidence of adjacent fatty stranding. 2. Hypodensity left renal lesions appear similar to the previous exam. Outpatient ultrasound could further evaluate if not already performed. 3. Pleural-based lung nodule in the inferior posterior left lower lobe appears stable. Recommendations as per prior study. AAS 03/18 pending PE: no exam - x-ray in process A/P: Crohn's, recurrent obstructive symptoms -- Surgery planned w/ Dr. Holt. Will review her questions re: ostomy irrigation w/ Dr. Burch. Continue TPN. MARIA EUGENIA MO March 18, 2019 14:36
[2019-03-18 15:00] VITALS: BP 119/76
--- NOTE | 2019-03-18 15:15 | NUR ---
ostomy care patient seen for assistance with irrigation of her ileostomy. spoke with patient and notified her that it is not recommended to irrigate an ileostomy per Haroon. notified ANGIE Peacock regarding this POC. notified ELIZABETH Castañeda about the POC and ostomy team will sign off at this time.
--- NOTE | 2019-03-18 15:20 | RAD ---
Portable acute abdomen series with chest, 03/18/2019: HISTORY: Ileus, follow-up The abdominal gas pattern is unremarkable. No free air seen in the abdomen. The liver appears enlarged. There are surgical clips in the right upper quadrant compatible with a previous cholecystectomy. A right Port-A-Cath extends into the superior vena cava. The heart size is normal. The lungs are clear. There is no evidence of pleural fluid. IMPRESSION: No acute abdominal abnormality is detected. Electronically signed by: Jim Zuñiga MD (03/18/2019 3:17 PM) [facility]
[2019-03-18 19:53] VITALS: BP 115/72
[2019-03-18] MEDS ORDERED: [UNRECOGNIZED DRUG - OTHER] IV SCH ×10 (22:00)
[2019-03-18] MEDS ORDERED: DEXTROSE 70% IV SCH ×10 (22:00)
[2019-03-18] MEDS ORDERED: TOTAL PARENTERAL NUTRITION IV SCH ×10 (22:00)
[2019-03-18] MEDS ORDERED: AMINO ACID IV SCH ×10 (22:00)
[2019-03-18 23:28] VITALS: BP 108/70
[2019-03-19] MEDS: diphenhydrAMINE 50 MG/ML VIAL IVP PRN ×4 (00:07→18:07)
[2019-03-19] MEDS: HYDROmorphone 2 MG/ML VIAL IV PRN ×10 (00:07→20:45)
[2019-03-19 03:27] VITALS: BP 105/62
[2019-03-19 03:41] LABS: BASO % 1 % (0-3); EOS # 0.3 x10^3/uL (0.0-0.7); EOS % 5 % (0-3); HEMATOCRIT 30.6 % (36.0-47.0); HEMOGLOBIN 10.2 g/dL (12.0-15.5); LYMPH # 1.3 x10^3/uL (1.0-4.8); LYMPH % 24 % (24-48); MEAN CORPUSCULAR HEMOGLOBIN 31 pg (25-35); MEAN CORPUSCULAR HGB CONC 33 g/dL (31-37); MEAN CORPUSCULAR VOLUME 94 fL (79-100); MONO # 0.5 x10^3/uL (0.0-1.1); MONO % 9 % (0-9); NEUT # 3.3 x10^3uL (1.8-7.7); NEUT % 61 % (31-73); PLATELET COUNT 131 x10^3/uL (140-400); RED BLOOD COUNT 3.26 x10^6/uL (3.50-5.40); RED CELL DISTRIBUTION WIDTH 12.6 % (11.5-14.5); WHITE BLOOD COUNT 5.4 x10^3/uL (4.0-11.0)
[2019-03-19 03:57] LABS: CALCIUM 7.8 mg/dL (8.5-10.1); CREATININE 0.8 mg/dL (0.6-1.0); GFR 79.9; POTASSIUM 3.6 mmol/L (3.5-5.1)
[2019-03-19 07:15] VITALS: BP 104/63
[2019-03-19] MEDS: PANTOPRAZOLE IV PUSH 40 MG VIAL. IVP SCH (08:45)
[2019-03-19] MEDS: ONDANSETRON PF 4 MG/2 ML VIAL. IV PRN (08:45)
--- NOTE | 2019-03-19 09:51 | PDOC ---
Objective: Objective: Social work has questions about need for home TPN/need for TPN after surgery. Vital Signs: Vital Signs Date Time Temp Pulse Resp B/P (MAP) Pulse Ox O2 Delivery O2 Flow Rate FiO2 03/19/19 08:46 14 100 Room Air 03/19/19 07:15 98.3 84 104/63 (77) 98.3 Labs: Laboratory Tests Test 03/19/19 03:25 White Blood Count 5.4 x10^3/uL Red Blood Count 3.26 x10^6/uL Hemoglobin 10.2 g/dL Hematocrit 30.6 % Mean Corpuscular Volume 94 fL Mean Corpuscular Hemoglobin 31 pg Mean Corpuscular Hemoglobin Concent 33 g/dL Red Cell Distribution Width 12.6 % Platelet Count 131 x10^3/uL Neutrophils (%) (Auto) 61 % Lymphocytes (%) (Auto) 24 % Monocytes (%) (Auto) 9 % Eosinophils (%) (Auto) 5 % Basophils (%) (Auto) 1 % Neutrophils # (Auto) 3.3 x10^3uL Lymphocytes # (Auto) 1.3 x10^3/uL Monocytes # (Auto) 0.5 x10^3/uL Eosinophils # (Auto) 0.3 x10^3/uL Basophils # (Auto) 0.0 x10^3/uL Sodium Level 140 mmol/L Potassium Level 3.6 mmol/L Chloride Level 107 mmol/L Carbon Dioxide Level 28 mmol/L Anion Gap 5 Blood Urea Nitrogen 9 mg/dL Creatinine 0.8 mg/dL Estimated GFR (Cockcroft-Gault) 79.9 Glucose Level 120 mg/dL Calcium Level 7.8 mg/dL Imaging: AAS 03/18 IMPRESSION: No acute abdominal abnormality is detected. PE: no exam, has tray of clear in room A/P: Crohn's, recurrent obstructive symptoms - unremarkable x-ray yesterday as above -- In the restroom, will follow-up later. Ideally would defer questions re: TPN to Dr. Holt. MARIA EUGENIA MO March 19, 2019 09:51
--- NOTE | 2019-03-19 10:02 | PDOC ---
PROGRESS NOTES Chief Complaint Chief Complaint Acute on chronic small bowel obstruction secondary to Crohn's B12 deficiency Hx of Carpal tunnel syndrome Nausea and vomiting Insomnia Crohn's - multiple complications, not in flare currently. GI following History of Present Illness History of Present Illness Acute Abdominal series shows normal gas pattern TPN running via Port-A-Cath She still claims bloated-but I provided her a copy of the acute abdominal series GS does not recommend irrigating that ileostomy for fear of bowel rupture-given multiple abdominal surgeries Plan start liquid diet Once tolerates liquid diet then home-I did tell her latest discharge is tomorrow She understands Vitals Vitals Vital Signs Date Time Temp Pulse Resp B/P (MAP) Pulse Ox O2 Delivery O2 Flow Rate FiO2 03/19/19 08:46 14 100 Room Air 03/19/19 07:15 98.3 84 104/63 (77) 98.3 Physical Exam General: Alert, Oriented X3, Cooperative, No acute distress Heart: Regular rate, Normal S1, Normal S2, No murmurs Lungs: Clear Abdomen: Soft Extremities: No clubbing, No cyanosis Skin: No rashes, No breakdown Labs LABS Laboratory Tests Test 03/19/19 03:25 White Blood Count 5.4 x10^3/uL (4.0-11.0) Red Blood Count 3.26 x10^6/uL (3.50-5.40) Hemoglobin 10.2 g/dL (12.0-15.5) Hematocrit 30.6 % (36.0-47.0) Mean Corpuscular Volume 94 fL (79-100) Mean Corpuscular Hemoglobin 31 pg (25-35) Mean Corpuscular Hemoglobin Concent 33 g/dL (31-37) Red Cell Distribution Width 12.6 % (11.5-14.5) Platelet Count 131 x10^3/uL (140-400) Neutrophils (%) (Auto) 61 % (31-73) Lymphocytes (%) (Auto) 24 % (24-48) Monocytes (%) (Auto) 9 % (0-9) Eosinophils (%) (Auto) 5 % (0-3) Basophils (%) (Auto) 1 % (0-3) Neutrophils # (Auto) 3.3 x10^3uL (1.8-7.7) Lymphocytes # (Auto) 1.3 x10^3/uL (1.0-4.8) Monocytes # (Auto) 0.5 x10^3/uL (0.0-1.1) Eosinophils # (Auto) 0.3 x10^3/uL (0.0-0.7) Basophils # (Auto) 0.0 x10^3/uL (0.0-0.2) Sodium Level 140 mmol/L (136-145) Potassium Level 3.6 mmol/L (3.5-5.1) Chloride Level 107 mmol/L (98-107) Carbon Dioxide Level 28 mmol/L (21-32) Anion Gap 5 (6-14) Blood Urea Nitrogen 9 mg/dL (7-20) Creatinine 0.8 mg/dL (0.6-1.0) Estimated GFR (Cockcroft-Gault) 79.9 Glucose Level 120 mg/dL (70-99) Calcium Level 7.8 mg/dL (8.5-10.1) Review of Systems Review of Systems bloatedness, abdominal pain, the rest of ROS 14 point negative Comment Review of Relevant I have reviewed the following items kathy (where applicable) has been applied. Labs Laboratory Tests Test 03/18/19 05:00 03/18/19 06:40 03/19/19 03:25 White Blood Count 5.1 x10^3/uL (4.0-11.0) 5.4 x10^3/uL (4.0-11.0) Red Blood Count 3.31 x10^6/uL (3.50-5.40) 3.26 x10^6/uL (3.50-5.40) Hemoglobin 10.8 g/dL (12.0-15.5) 10.2 g/dL (12.0-15.5) Hematocrit 32.0 % (36.0-47.0) 30.6 % (36.0-47.0) Mean Corpuscular Volume 97 fL (79-100) 94 fL (79-100) Mean Corpuscular Hemoglobin 33 pg (25-35) 31 pg (25-35) Mean Corpuscular Hemoglobin Concent 34 g/dL (31-37) 33 g/dL (31-37) Red Cell Distribution Width 13.0 % (11.5-14.5) 12.6 % (11.5-14.5) Platelet Count 133 x10^3/uL (140-400) 131 x10^3/uL (140-400) Neutrophils (%) (Auto) 61 % (31-73) 61 % (31-73) Lymphocytes (%) (Auto) 24 % (24-48) 24 % (24-48) Monocytes (%) (Auto) 10 % (0-9) 9 % (0-9) Eosinophils (%) (Auto) 6 % (0-3) 5 % (0-3) Basophils (%) (Auto) 0 % (0-3) 1 % (0-3) Neutrophils # (Auto) 3.1 x10^3uL (1.8-7.7) 3.3 x10^3uL (1.8-7.7) Lymphocytes # (Auto) 1.2 x10^3/uL (1.0-4.8) 1.3 x10^3/uL (1.0-4.8) Monocytes # (Auto) 0.5 x10^3/uL (0.0-1.1) 0.5 x10^3/uL (0.0-1.1) Eosinophils # (Auto) 0.3 x10^3/uL (0.0-0.7) 0.3 x10^3/uL (0.0-0.7) Basophils # (Auto) 0.0 x10^3/uL (0.0-0.2) 0.0 x10^3/uL (0.0-0.2) Sodium Level 139 mmol/L (136-145) 140 mmol/L (136-145) Potassium Level 4.1 mmol/L (3.5-5.1) 3.6 mmol/L (3.5-5.1) Chloride Level 105 mmol/L (98-107) 107 mmol/L (98-107) Carbon Dioxide Level 28 mmol/L (21-32) 28 mmol/L (21-32) Anion Gap 6 (6-14) 5 (6-14) Blood Urea Nitrogen 11 mg/dL (7-20) 9 mg/dL (7-20) Creatinine 0.8 mg/dL (0.6-1.0) 0.8 mg/dL (0.6-1.0) Estimated GFR (Cockcroft-Gault) 79.9 79.9 Glucose Level 94 mg/dL (70-99) 120 mg/dL (70-99) Calcium Level 8.3 mg/dL (8.5-10.1) 7.8 mg/dL (8.5-10.1) Phosphorus Level 3.4 mg/dL (2.6-4.7) Magnesium Level 1.8 mg/dL (1.8-2.4) Laboratory Tests Test 03/19/19 03:25 White Blood Count 5.4 x10^3/uL (4.0-11.0) Red Blood Count 3.26 x10^6/uL (3.50-5.40) Hemoglobin 10.2 g/dL (12.0-15.5) Hematocrit 30.6 % (36.0-47.0) Mean Corpuscular Volume 94 fL (79-100) Mean Corpuscular Hemoglobin 31 pg (25-35) Mean Corpuscular Hemoglobin Concent 33 g/dL (31-37) Red Cell Distribution Width 12.6 % (11.5-14.5) Platelet Count 131 x10^3/uL (140-400) Neutrophils (%) (Auto) 61 % (31-73) Lymphocytes (%) (Auto) 24 % (24-48) Monocytes (%) (Auto) 9 % (0-9) Eosinophils (%) (Auto) 5 % (0-3) Basophils (%) (Auto) 1 % (0-3) Neutrophils # (Auto) 3.3 x10^3uL (1.8-7.7) Lymphocytes # (Auto) 1.3 x10^3/uL (1.0-4.8) Monocytes # (Auto) 0.5 x10^3/uL (0.0-1.1) Eosinophils # (Auto) 0.3 x10^3/uL (0.0-0.7) Basophils # (Auto) 0.0 x10^3/uL (0.0-0.2) Sodium Level 140 mmol/L (136-145) Potassium Level 3.6 mmol/L (3.5-5.1) Chloride Level 107 mmol/L (98-107) Carbon Dioxide Level 28 mmol/L (21-32) Anion Gap 5 (6-14) Blood Urea Nitrogen 9 mg/dL (7-20) Creatinine 0.8 mg/dL (0.6-1.0) Estimated GFR (Cockcroft-Gault) 79.9 Glucose Level 120 mg/dL (70-99) Calcium Level 7.8 mg/dL (8.5-10.1) Microbiology 03/14/19 Urine Culture - Final, Complete 03/14/19 Urine Culture Result 1 (LIONEL) - Final, Complete Medications Current Medications Sodium Chloride 1,000 ml @ 1,000 mls/hr Q1H IV Last administered on 03/14/19 16:22; Start 03/14/19 at 16:45; Stop 03/14/19 at 17:44; Status DC Hydromorphone HCl (Dilaudid) 2 mg 1X ONCE IV Last administered on 03/14/19at 16:26; Start 03/14/19 at 16:15; Stop 03/14/19 at 16:19; Status DC Ondansetron HCl (Zofran) 4 mg 1X ONCE IV Last administered on 03/14/19at 16:25; Start 03/14/19 at 16:45; Stop 03/14/19 at 16:46; Status DC Sodium Chloride 1,000 ml @ 1,000 mls/hr 1X ONCE IV Last administered on 03/14/19at 16:49; Start 03/14/19 at 16:45; Stop 03/14/19 at 17:44; Status DC Hydromorphone HCl (Dilaudid) 1 mg 1X ONCE IV Last administered on 03/14/19at 17:17; Start 03/14/19 at 17:15; Stop 03/14/19 at 17:16; Status DC Sodium Chloride 1,000 ml @ 1,000 mls/hr 1X ONCE IV Last administered on 03/14/19at 19:06; Start 03/14/19 at 19:00; Stop 03/14/19 at 19:59; Status DC Hydromorphone HCl (Dilaudid) 1 mg 1X ONCE IV Last administered on 03/14/19at 19:06; Start 03/14/19 at 19:30; Stop 03/14/19 at 19:31; Status DC Ondansetron HCl (Zofran) 4 mg 1X ONCE IV Last administered on 03/14/19at 19:09; Start 03/14/19 at 19:45; Stop 03/14/19 at 19:46; Status DC Amino Acids/ Glycerin/ Electrolytes 1,000 ml @ 75 mls/hr [id number] IV Last administered on 03/14/19 21:32; Start 03/14/19 at 19:45; Stop 03/15/19 at 09:47; Status DC Ondansetron HCl (Zofran) 4 mg PRN Q8HRS PRN IV NAUSEA/VOMITING Last administered on 03/15/19 16:02; Start 03/14/19 at 20:00; Stop 03/15/19 at 19:59; Status DC Hydromorphone HCl (Dilaudid) 1 mg PRN Q2HRS PRN IV pain Last administered on 03/19/19 08:46; Start 03/14/19 at 20:00 Diphenhydramine HCl (Benadryl) 50 mg PRN Q6HRS PRN IVP ITCHING Last administered on 03/19/19 06:19; Start 03/14/19 at 21:15 Info (Tpn Per Pharmacy) 1 each PRN DAILY PRN MC SEE COMMENTS Last administered on 03/18/19 11:02; Start 03/15/19 at 09:45 Levofloxacin/ Dextrose 100 ml @ 100 mls/hr Q24H IV Last administered on 03/18/19 13:29; Start 03/15/19 at 13:00; Stop 03/18/19 at 14:05; Status DC Sodium Chloride 100 meq/Potassium Chloride 80 meq/ Potassium Phosphate 16 mmol/ Magnesium Sulfate 15 meq/Calcium Gluconate 12 meq/ Multivitamins 10 ml/Chromium/ Copper/Manganese/ Seleni/Zn 1 ml/ Total Parenteral Nutrition/Amino Acids/Dextrose/ Fat Emulsion Intravenous 1,512 ml @ 63 mls/hr TPN CONT IV Last administered on 03/15/19 21:28; Start 03/15/19 at 22:00; Stop 03/16/19 at 21:59; Status DC Ondansetron HCl (Zofran) 8 mg PRN Q8HRS PRN IV NAUSEA/VOMITING Last administered on 03/19/19 08:45; Start 03/16/19 at 09:30 Clonazepam (KlonoPIN) 1 mg PRN BID PRN PO ANXIETY / AGITATION Last administered on 03/16/19at 10:44; Start 03/16/19 at 09:30 Simethicone (Gas-X) 120 mg PRN DAILY PRN PO REFLUX Last administered on 03/16/19at 13:02; Start 03/16/19 at 09:45 Sodium Chloride 100 meq/Potassium Chloride 80 meq/ Potassium Phosphate 16 mmol/ Magnesium Sulfate 15 meq/Calcium Gluconate 12 meq/ Multivitamins 10 ml/Chromium/ Copper/Manganese/ Seleni/Zn 1 ml/ Total Parenteral Nutrition/Amino Acids/Dextrose/ Fat Emulsion Intravenous 1,512 ml @ 63 mls/hr TPN CONT IV Last administered on 03/16/19at 21:45; Start 03/16/19 at 22:00; Stop 03/17/19 at 21:59; Status DC Enoxaparin Sodium (Lovenox 40mg Syringe) 40 mg 1X ONCE SQ Last administered on 03/16/19at 17:17; Start 03/16/19 at 17:00; Stop 03/16/19 at 17:01; Status DC Sodium Chloride 100 meq/Potassium Chloride 80 meq/ Potassium Phosphate 16 mmol/ Magnesium Sulfate 15 meq/Calcium Gluconate 12 meq/ Multivitamins 10 ml/Chromium/ Copper/Manganese/ Seleni/Zn 1 ml/ Total Parenteral Nutrition/Amino Acids/Dextrose/ Fat Emulsion Intravenous 1,512 ml @ 63 mls/hr TPN CONT IV Last administered on 03/17/19at 21:47; Start 03/17/19 at 22:00; Stop 03/18/19 at 21:59; Status DC Pantoprazole Sodium (PROTONIX VIAL for IV PUSH) 40 mg DAILYAC IVP Last administered on 03/19/19at 08:45; Start 03/18/19 at 09:00 Sodium Chloride 100 meq/Potassium Chloride 80 meq/ Potassium Phosphate 16 mmol/ Magnesium Sulfate 15 meq/Calcium Gluconate 12 meq/ Multivitamins 10 ml/Chromium/ Copper/Manganese/ Seleni/Zn 1 ml/ Total Parenteral Nutrition/Amino Acids/Dextrose/ Fat Emulsion Intravenous 1,512 ml @ 63 mls/hr TPN CONT IV Last administered on 03/18/19at 22:10; Start 03/18/19 at 22:00; Stop 03/19/19 at 21:59 Active Scripts Active Reported [dilaudid liquid] 1.5 Mg PO PRN Q8HRS PRN [ferous sulfate] Mg PO DAILY [vitamin B12 inject.] MONTHLY Vitamin D3 (Cholecalciferol (Vitamin D3)) 5,000 Unit Tablet 5,000 Unit PO WEEKLY Tablet (Pnv Cmb#95/Ferrous Fumarate/Fa) 1 Each Tablet 1 Tab PO DAILY Benadryl (Diphenhydramine Hcl) 25 Mg Capsule 25 Mg PO PRN Q4-6HRS PRN Zofran Odt (Ondansetron) 4 Mg Tab.rapdis 4 Mg PO BID PRN Biotin 10,000 Mcg Tab.rapdis 10,000 Mcg PO DAILY Simethicone 125 Mg Capsule 125 Mg PO PRN DAILY PRN Pantoprazole Sodium 40 Mg Tablet.dr 40 Mg PO DAILY Clonazepam 1 Mg Tablet 1 Tab PO PRN BID PRN Vitals/I & O Vital Sign - Last 24 Hours 03/18/19 03/18/19 03/18/19 03/18/19 11:00 11:12 13:30 15:00 Temp 98.0 98.4 98.0 98.4 Pulse 87 92 Resp 18 18 18 18 B/P (MAP) 124/77 (93) 119/76 (90) Pulse Ox 98 98 98 99 O2 Delivery Room Air Room Air Room Air Room Air 03/18/19 03/18/19 03/18/19 03/18/19 15:37 17:45 18:15 19:53 Temp 98.8 98.8 Pulse 82 Resp 18 18 18 20 B/P (MAP) 115/72 (86) Pulse Ox 99 99 99 O2 Delivery Room Air Room Air Room Air 03/18/19 03/18/19 03/18/19 03/18/19 20:00 20:40 22:02 23:28 Temp 99.0 99.0 Pulse 87 Resp 20 B/P (MAP) 108/70 (83) Pulse Ox 99 98 O2 Delivery Room Air Room Air Room Air 03/19/19 03/19/19 03/19/19 03/19/19 03:27 04:34 05:08 06:20 Temp 98.3 98.3 Pulse 86 Resp 20 B/P (MAP) 105/62 (76) Pulse Ox 100 100 O2 Delivery Room Air Room Air Room Air Room Air 03/19/19 03/19/19 07:15 08:46 Temp 98.3 98.3 Pulse 84 Resp 18 14 B/P (MAP) 104/63 (77) Pulse Ox 100 100 O2 Delivery Room Air Room Air Intake and Output 03/18/19 03/18/19 03/19/19 15:00 23:00 07:00 Intake Total 0 ml 0 ml 100 ml Output Total 700 ml 150 ml Balance 0 ml -700 ml -50 ml BLAYNE DEY MD March 19, 2019 10:02
[2019-03-19 11:10] VITALS: BP 116/87
--- NOTE | 2019-03-19 12:56 | NUR ---
MELISA following Pt. Spoke with Mimi from [facility] and pt's insurance will not cover home TPN as Sx is scheduled on 02/25 and it is unknown if pt will need TPN after Sx. Pt states she will not need TPN after her Sx but is currently not able to hold things down. She states she will only need TPN for the next 8 days so 'she is not dehydrated prior sx'. Mimi explained to Pt she might have to pay $110/day for TPN (that's the lowest contreras they can offer) and they will have a payment plan for her. Pt upset insurance is not covering TPN at home but reported she will discuss with her regarding paying out of pocket. Mimi also to call pt's insurance to see if they can do appeal in the mean time. MELISA provided pt with a phone number to call once she discussed her options with her . Pt aware she is ready to dc today pending home TPN. Discussed with RN.
[2019-03-19] MEDS: TPN PER PHARMACY MC PRN (14:16)
--- NOTE | 2019-03-19 14:17 | NUR ---
Pharmacy TPN Dosing Note S: MATTHEW HOLGUIN is a 39 year old F Currently receiving Central Continuous TPN started 03/15/19 B:Pertinent PMH: Crohn's disease; bowel obstruction Height: 5 feet, 7 inches Weight: 71.2 kg Current diet: NPO LABS: Sodium: 140 Potassium: 3.6 Chloride: 107 Calcium: 7.8 Corrected Calcium: 8.52 Magnesium: 1.8 CO2: 28 SCr: 0.8 Glucose: 120 Albumin: 3.1 AST: 33 ALT: 55 TPN FORMULA: TPN TYPE: Central Continuous AMINO ACIDS: 70 gm DEXTROSE: 250 gm LIPIDS: 30 gm SODIUM CHLORIDE: 100 mEq POTASSIUM CHLORIDE: 90 mEq POTASSIUM PHOSPHATE: 16 mmol MAGNESIUM: 15 mEq CALCIUM: 15 mEq MULTIPLE VITAMIN: 10 ml TRACE ELEMENTS: 1 ml TPN PLAN: -Serum potassium trending down, increase KCl to 90 mEq/day. -Corrected calcium low, increase calcium gluconate to 15 mEq/day. -BMP tomorrow per primary. R: Continue TPN @ current rate and above formula. Will monitor electrolytes, glucose, and tolerance to TPN. KATERINA RESENDIZ [facility], 03/19/19 [id number]
--- NOTE | 2019-03-19 14:50 | NUR ---
PATIENT ARRIVED ON THE UNIT PER W/C, DENIES PAIN/DISCOMFORT AT THIS TIME, FLAT AFFECT, TPN INFUSING AT 63CC/HR. WILL MONITOR.
[2019-03-19 15:00] VITALS: BP 118/78
--- NOTE | 2019-03-19 15:28 | NUR ---
SW following Pt. Insurance has approved to provide TPN after an appeal. [facility] will provide TPN and HH RN starting tomorrow. Discussed with Pt and RN.
[2019-03-19 19:00] VITALS: BP 108/70
[2019-03-19] MEDS ORDERED: DEXTROSE 70% IV SCH ×10 (22:00)
[2019-03-19] MEDS ORDERED: TOTAL PARENTERAL NUTRITION IV SCH ×10 (22:00)
[2019-03-19] MEDS ORDERED: AMINO ACID IV SCH ×10 (22:00)
[2019-03-19] MEDS ORDERED: [UNRECOGNIZED DRUG - OTHER] IV SCH ×10 (22:00)
[2019-03-19 23:00] VITALS: BP 102/64
[2019-03-20] MEDS: HYDROmorphone 2 MG/ML VIAL IV PRN ×7 (00:12→15:40)
[2019-03-20] MEDS: diphenhydrAMINE 50 MG/ML VIAL IVP PRN ×3 (00:12→15:40)
[2019-03-20 03:00] VITALS: BP 97/64
[2019-03-20 07:00] VITALS: BP 99/75
[2019-03-20 07:25] LABS: CREATININE 0.8 mg/dL (0.6-1.0); GFR 79.9; POTASSIUM 3.6 mmol/L (3.5-5.1)
[2019-03-20 07:34] LABS: BASO % 1 % (0-3); EOS # 0.3 x10^3/uL (0.0-0.7); EOS % 6 % (0-3); HEMATOCRIT 30.9 % (36.0-47.0); HEMOGLOBIN 10.3 g/dL (12.0-15.5); LYMPH # 1.1 x10^3/uL (1.0-4.8); LYMPH % 24 % (24-48); MEAN CORPUSCULAR HEMOGLOBIN 31 pg (25-35); MEAN CORPUSCULAR HGB CONC 33 g/dL (31-37); MEAN CORPUSCULAR VOLUME 94 fL (79-100); MONO # 0.4 x10^3/uL (0.0-1.1); MONO % 9 % (0-9); NEUT # 2.8 x10^3uL (1.8-7.7); NEUT % 60 % (31-73); PLATELET COUNT 132 x10^3/uL (140-400); RED BLOOD COUNT 3.29 x10^6/uL (3.50-5.40); RED CELL DISTRIBUTION WIDTH 12.6 % (11.5-14.5); WHITE BLOOD COUNT 4.7 x10^3/uL (4.0-11.0)
[2019-03-20] MEDS: PANTOPRAZOLE IV PUSH 40 MG VIAL. IVP SCH (08:01)
[2019-03-20] MEDS ORDERED: ONDA4TAB7 PO (08:51)
[2019-03-20] MEDS ORDERED: OXYC1TAB22 PO (08:51)
--- NOTE | 2019-03-20 08:52 | SNU/HH DC ---
DISCHARGE WITH HOME HEALTH DISCHARGE INFORMATION: Discharge Date: March 20, 2019 Condition on Discharge: Stable CODE STATUS: Code Status: Full HOME HEALTH: Face to Face: I certify this patient is under my care and that I, or a nurse practitioner or physician's medical assistant ob gyn working with me, had a face to face encounter that meets the physician face to face encounter requirements with this patient on []. Medical Complications: Other (tpn via port a cath) RN For Eval/Treatment: Yes Pt Meets Homebound Status: Other: (tpn port a cath) POST DISCHARGE ORDERS: Activity Instructions for Disc: Activity as tolerated Weight Bearing Status after Di: As tolerated Wound/Incision Care: Change dressing CHECKS AFTER DISCHARGE: Checks after discharge: Check your Temp as needed FOLLOW-UP: PCP to follow Home Health: DR Lavon galvan March 27 TREATMENT/EQUIPMENT ORDERS: Adaptive Equipment Issued: None CERTIFICATION STATEMENT: Certification Statement: Certification Statement: Based on the above finding, I certify that this patient is confined to the home and needs intermittent senior care care, physical therapy and/or speech therapy, or continues to need occupational therapy.~ This patient is under my care, and I have initiated the establishment of the plan of care.~ This patient will be followed by myself or a community physician who will periodically review the plan of care. Home Meds Active Scripts Ondansetron Hcl (ZOFRAN) 4 Mg Tablet, 1 TAB PO Q6HRS for emesis, #30 TAB Prov:BLAYNE DEY MD 03/20/19 Oxycodone/Apap 10-325 (PERCOCET 10-325 MG TABLET ) 1 Each Tablet, 1 TAB PO PRN Q6HRS PRN for PAIN, #20 TAB 0 Refills Prov:BLAYNE DEY MD 03/20/19 Reported Medications [dilaudid liquid] No Conflict Check, 1.5 MG PO PRN Q8HRS PRN for PAIN 02/24/19 [ferous sulfate] No Conflict Check, MG PO DAILY for supplement 02/24/19 [vitamin B12 inject.] No Conflict Check, monthly for supplement 02/24/19 Cholecalciferol (Vitamin D3) (VITAMIN D3) 5,000 Unit Tablet, 5000 UNIT PO WEEKLY for supplement, TAB 02/24/19 Pnv Cmb#95/Ferrous Fumarate/Fa ( TABLET) 1 Each Tablet, 1 TAB PO DAILY for supplement, #90 TAB 3 Refills 02/24/19 Diphenhydramine Hcl (BENADRYL) 25 Mg Capsule, 25 MG PO PRN Q4-6HRS PRN for HI VES, CAP 08/18/17 Ondansetron (ZOFRAN ODT) 4 Mg Tab.rapdis, 4 MG PO BID PRN for NAUSEA/VOMITING, TAB 08/18/17 Biotin (Biotin) 10,000 Mcg Tab.rapdis, 79255 MCG PO DAILY, TAB 08/18/17 Simethicone (Simethicone) 125 Mg Capsule, 125 MG PO PRN DAILY PRN for reflux, CAP 08/18/17 Pantoprazole Sodium (PANTOPRAZOLE SODIUM) 40 Mg Tablet.dr, 40 MG PO DAILY, TAB 08/05/14 Clonazepam (CLONAZEPAM) 1 Mg Tablet, 1 TAB PO PRN BID PRN for ANXIETY / AGITATION, TAB 08/05/14 BLAYNE DEY MD March 20, 2019 08:52
--- NOTE | 2019-03-20 10:16 | NUR ---
MELISA following pt. MELISA phoned and faxed TPN[facility]. Flor will be contacting Pt and will come to [facility] to start TPN as pt gets it continuously. Pt aware of plans and agreeable. Discussed with RN. Addendum: 03/20/19 at 1415 by ROULA VINCENT Pt provided a teaching by Low from [facility] and TPN will be delivered to pt's home around 1800. An RN from [facility] will also meet pt at home to night. RN aware.
--- NOTE | 2019-03-20 10:36 | PDOC3 ---
Discharge Summary Visit Information Date of Admission: March 14, 2019 Date of Discharge: March 20, 2019 Admitting Diagnosis Comment: Acute on chronic small bowel obstruction secondary to Crohn's B12 deficiency Hx of Carpal tunnel syndrome Nausea and vomiting Insomnia Crohn's - multiple complications, not in flare currently. GI following Vag dc Brief Hospital Course Allergies Allergies Coded Allergies Type Severity Reaction Last Updated Verified Iodinated Contrast- Oral and IV Dye Allergy Severe Hives 08/20/14 Yes clindamycin Allergy Severe Hives, feeling of thickening of the throat 08/25/14 Yes morphine Allergy Severe Hives 02/22/19 Yes promethazine Allergy Severe ANAPHALAXIS 08/23/14 Yes amoxicillin Allergy Intermediate Cephalosporins OK 08/21/17 Yes fentanyl Allergy Intermediate 08/04/14 Yes ketorolac Allergy Intermediate 02/22/19 Yes metoclopramide Allergy Intermediate 08/04/14 Yes Vital Signs Vital Signs Date Time Temp Pulse Resp B/P (MAP) Pulse Ox O2 Delivery O2 Flow Rate FiO2 03/20/19 09:46 19 94 Room Air 03/20/19 07:00 98.2 84 99/75 (83) 98.2 Lab Results Laboratory Tests Test 03/19/19 03:25 03/20/19 04:50 White Blood Count 5.4 x10^3/uL (4.0-11.0) 4.7 x10^3/uL (4.0-11.0) Red Blood Count 3.26 x10^6/uL (3.50-5.40) 3.29 x10^6/uL (3.50-5.40) Hemoglobin 10.2 g/dL (12.0-15.5) 10.3 g/dL (12.0-15.5) Hematocrit 30.6 % (36.0-47.0) 30.9 % (36.0-47.0) Mean Corpuscular Volume 94 fL (79-100) 94 fL (79-100) Mean Corpuscular Hemoglobin 31 pg (25-35) 31 pg (25-35) Mean Corpuscular Hemoglobin Concent 33 g/dL (31-37) 33 g/dL (31-37) Red Cell Distribution Width 12.6 % (11.5-14.5) 12.6 % (11.5-14.5) Platelet Count 131 x10^3/uL (140-400) 132 x10^3/uL (140-400) Neutrophils (%) (Auto) 61 % (31-73) 60 % (31-73) Lymphocytes (%) (Auto) 24 % (24-48) 24 % (24-48) Monocytes (%) (Auto) 9 % (0-9) 9 % (0-9) Eosinophils (%) (Auto) 5 % (0-3) 6 % (0-3) Basophils (%) (Auto) 1 % (0-3) 1 % (0-3) Neutrophils # (Auto) 3.3 x10^3uL (1.8-7.7) 2.8 x10^3uL (1.8-7.7) Lymphocytes # (Auto) 1.3 x10^3/uL (1.0-4.8) 1.1 x10^3/uL (1.0-4.8) Monocytes # (Auto) 0.5 x10^3/uL (0.0-1.1) 0.4 x10^3/uL (0.0-1.1) Eosinophils # (Auto) 0.3 x10^3/uL (0.0-0.7) 0.3 x10^3/uL (0.0-0.7) Basophils # (Auto) 0.0 x10^3/uL (0.0-0.2) 0.0 x10^3/uL (0.0-0.2) Sodium Level 140 mmol/L (136-145) 137 mmol/L (136-145) Potassium Level 3.6 mmol/L (3.5-5.1) 3.6 mmol/L (3.5-5.1) Chloride Level 107 mmol/L (98-107) 103 mmol/L (98-107) Carbon Dioxide Level 28 mmol/L (21-32) 27 mmol/L (21-32) Anion Gap 5 (6-14) 7 (6-14) Blood Urea Nitrogen 9 mg/dL (7-20) 10 mg/dL (7-20) Creatinine 0.8 mg/dL (0.6-1.0) 0.8 mg/dL (0.6-1.0) Estimated GFR (Cockcroft-Gault) 79.9 79.9 Glucose Level 120 mg/dL (70-99) 166 mg/dL (70-99) Calcium Level 7.8 mg/dL (8.5-10.1) 8.0 mg/dL (8.5-10.1) Laboratory Tests Test 03/20/19 04:50 White Blood Count 4.7 x10^3/uL (4.0-11.0) Red Blood Count 3.29 x10^6/uL (3.50-5.40) Hemoglobin 10.3 g/dL (12.0-15.5) Hematocrit 30.9 % (36.0-47.0) Mean Corpuscular Volume 94 fL (79-100) Mean Corpuscular Hemoglobin 31 pg (25-35) Mean Corpuscular Hemoglobin Concent 33 g/dL (31-37) Red Cell Distribution Width 12.6 % (11.5-14.5) Platelet Count 132 x10^3/uL (140-400) Neutrophils (%) (Auto) 60 % (31-73) Lymphocytes (%) (Auto) 24 % (24-48) Monocytes (%) (Auto) 9 % (0-9) Eosinophils (%) (Auto) 6 % (0-3) Basophils (%) (Auto) 1 % (0-3) Neutrophils # (Auto) 2.8 x10^3uL (1.8-7.7) Lymphocytes # (Auto) 1.1 x10^3/uL (1.0-4.8) Monocytes # (Auto) 0.4 x10^3/uL (0.0-1.1) Eosinophils # (Auto) 0.3 x10^3/uL (0.0-0.7) Basophils # (Auto) 0.0 x10^3/uL (0.0-0.2) Sodium Level 137 mmol/L (136-145) Potassium Level 3.6 mmol/L (3.5-5.1) Chloride Level 103 mmol/L (98-107) Carbon Dioxide Level 27 mmol/L (21-32) Anion Gap 7 (6-14) Blood Urea Nitrogen 10 mg/dL (7-20) Creatinine 0.8 mg/dL (0.6-1.0) Estimated GFR (Cockcroft-Gault) 79.9 Glucose Level 166 mg/dL (70-99) Calcium Level 8.0 mg/dL (8.5-10.1) Brief Hospital Course Ms. Nicholson is a 39 old freq flier for chronic abdominal pain, nausea, emesis. Has a right Port-A-Cath because hard stick. Always needing some TPN in house. She stayed for maybe 5 days with us. Acute abdominal series shows no obstruction. But she remains poor by mouth because of fear of emesis, nausea, bloatedness. She already has a scheduled surgery Dr. Doll March 27 for adhesiolysis. She has an indwelling colostomy which she thinks is low output or 2 L from normal 6 L. GS does not recommend irrigating for fear of bowel perforation given multiple bowel issues, adhesions, etc. and history Crohn's. On the day of discharge she tells me she has vaginal discharge We're checking wet prep. Will be out sometime today. I will order antibiotics pending wet prep results She will go home with TPN and home health has been arranged for that Significant time doing dose discharge arrangements counseling. Quite a difficult discharge on the day of discharge Requested some pain medicines all on chart Discharge instruction is follow up with Dr. Doll for scheduled surgery March 27 dc 34 mins Discharge Information Condition at Discharge: Improved, Stable Follow Up: Weeks (DR Doll March 27 sx) Disposition/Orders: D/C to Home Scheduled Biotin (Biotin) 10,000 Mcg Tab.rapdis, 10,000 MCG PO DAILY, (Reported) Entered as Reported by: LILLIAN JEREZ on 08/18/17 1537 Last Action: HELD on 03/16/19923 by ABI MAHAN Cholecalciferol (Vitamin D3) (Vitamin D3) 5,000 Unit Tablet, 5,000 UNIT PO WEEKLY for supplement, (Reported) Entered as Reported by: Jody Soto on 02/24/19 0906 Last Action: HELD on 03/16/19923 by ABI MAHAN Ondansetron Hcl (Zofran) 4 Mg Tablet, 1 TAB PO Q6HRS for emesis, #30 Prescribed by: BLAYNE DEY on 03/20/19 0851 Pantoprazole Sodium (Pantoprazole Sodium) 40 Mg Tablet., 40 MG PO DAILY, (Reported) Entered as Reported by: JENNIFER SWANSON on 9/23/14 0212 Last Action: HELD on 03/16/19923 by ABI MAHAN Pnv Cmb#95/Ferrous Fumarate/Fa ( Tablet) 1 Each Tablet, 1 TAB PO DAILY for supplement, #90 Ref 3 (Reported) Entered as Reported by: Jody Soto on 02/24/19904 Last Action: HELD on 03/16/19923 by ABI MAHAN [ferous sulfate] , MG PO DAILY for supplement, (Reported) Entered as Reported by: Jody Soto on 02/24/19910 Last Action: HELD on 03/16/19923 by ABI MAHAN [vitamin B12 inject.] , monthly for supplement, (Reported) Entered as Reported by: Jody Soto on 02/24/19905 Last Action: HELD on 03/16/19923 by ABI MAHAN Scheduled PRN Clonazepam (Clonazepam) 1 Mg Tablet, 1 TAB PO PRN BID PRN for ANXIETY / AGITATION, (Reported) Entered as Reported by: JENNIFER SWANSON on 08/05/14209 Last Action: Continued on 03/16/19923 by ABI MAHAN Diphenhydramine Hcl (Benadryl) 25 Mg Capsule, 25 MG PO PRN Q4-6HRS PRN for HIVES, (Reported) Entered as Reported by: MIREYA MCDERMOTT on 08/18/172044 Last Action: Reviewed on 03/14/192311 by Stephanie Cavanaugh Ondansetron (Zofran Odt) 4 Mg Tab.rapdis, 4 MG PO BID PRN for NAUSEA/VOMITING, (Reported) Entered as Reported by: LILLIAN JEREZ on 08/18/171536 Last Action: HELD on 03/16/19923 by ABI MAHAN Oxycodone/Apap 10-325 (Percocet 10-325 Mg Tablet ) 1 Each Tablet, 1 TAB PO PRN Q6HRS PRN for PAIN, #20 Ref 0 Prescribed by: BLAYNE DEY on 03/20/19850 Simethicone (Simethicone) 125 Mg Capsule, 125 MG PO PRN DAILY PRN for reflux, (Reported) Entered as Reported by: LILLIAN JEREZ on 08/18/171536 Last Action: Converted on 03/16/19923 by ABI MAHAN [dilaudid liquid] , 1.5 MG PO PRN Q8HRS PRN for PAIN, (Reported) Entered as Reported by: Jody Soto on 02/24/19910 Last Action: HELD on 03/16/19923 by BLAYNE GONSALEZ MD March 20, 2019 10:36
[2019-03-20 11:00] VITALS: BP 125/89
[2019-03-20] MEDS ORDERED: FUROSEMIDE 20 MG/2 ML VIAL. IVP ONE (11:00)
--- NOTE | 2019-03-20 13:34 | PDOC ---
Subjective: Subjective: Doesn't feel well enough to go home but "I guess I'm going to" on TPN. Not much ostomy output, not eating much. 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 She came here because she likes it and "we know everything already." Objective: Vital Signs: Vital Signs Date Time Temp Pulse Resp B/P (MAP) Pulse Ox O2 Delivery O2 Flow Rate FiO2 03/20/19 12:44 19 93 Room Air 03/20/19 11:00 97.7 89 125/89 (101) 97.7 Labs: Laboratory Tests Test 03/20/19 04:50 White Blood Count 4.7 x10^3/uL Red Blood Count 3.29 x10^6/uL Hemoglobin 10.3 g/dL Hematocrit 30.9 % Mean Corpuscular Volume 94 fL Mean Corpuscular Hemoglobin 31 pg Mean Corpuscular Hemoglobin Concent 33 g/dL Red Cell Distribution Width 12.6 % Platelet Count 132 x10^3/uL Neutrophils (%) (Auto) 60 % Lymphocytes (%) (Auto) 24 % Monocytes (%) (Auto) 9 % Eosinophils (%) (Auto) 6 % Basophils (%) (Auto) 1 % Neutrophils # (Auto) 2.8 x10^3uL Lymphocytes # (Auto) 1.1 x10^3/uL Monocytes # (Auto) 0.4 x10^3/uL Eosinophils # (Auto) 0.3 x10^3/uL Basophils # (Auto) 0.0 x10^3/uL Sodium Level 137 mmol/L Potassium Level 3.6 mmol/L Chloride Level 103 mmol/L Carbon Dioxide Level 27 mmol/L Anion Gap 7 Blood Urea Nitrogen 10 mg/dL Creatinine 0.8 mg/dL Estimated GFR (Cockcroft-Gault) 79.9 Glucose Level 166 mg/dL Calcium Level 8.0 mg/dL PE: GEN: NAD, lunch tray untouched LUNGS: room air ABD: heating pad NEURO/PSYCH: A & O 3, tearful, frustrated A/P: Crohn's, recurrent obstructive symptoms -- Plans to DC on TPN. Encouraged follow-up at facility where her surgeon can see her. MARIA EUGENIA MO March 20, 2019 13:34
[2019-03-20 15:00] VITALS: BP 117/71
--- NOTE | 2019-03-20 18:12 | NUR ---
Patient leaves the unit per w/c accompanied by her spouse and this marketing underwriter, emotional support given, f/u appointments encouraged.
== END 2019-03-20 18:12 | disposition home health service (06) | DRG 385 ==
LOC: ER 15:30 → 6 SOUTH 18:55 → 5 NORTH 03-19 13:58
PROVIDERS: ADMIT Internal Medicine; ATTEND Internal Medicine
DX: K50.012 Crohn's disease of small intestine with intestinal obstruction (principal); N17.0 Acute kidney failure with tubular necrosis; K56.7 Ileus, unspecified; E53.8 Deficiency of other specified B group vitamins; F41.9 Anxiety disorder, unspecified; N89.8 Other specified noninflammatory disorders of vagina; Z83.3 Family history of diabetes mellitus; Z90.49 Acquired absence of other specified parts of digestive tract; Z93.3 Colostomy status; Z90.710 Acquired absence of both cervix and uterus; G89.29 Other chronic pain; Z88.8 Allergy status to other drugs, medicaments and biological substances; Z79.899 Other long term (current) drug therapy
CPT/HCPCS: 36415; 74022; 74176; 80048; 80053; 81001; 83605; 83690; 83735; 84100; 84134; 84478; 85025; 87086; 93005; 96361; 96374; 96375; 96376; C9113; J0610; J1170; J1200; J1650; J1940; J1956; J2405; J3475; J3480; J7030; Q0111; 99285-25

== ENCOUNTER 2019-04-10 21:41 | Inpatient (IN) | payer MEDICARE, OTHER ==
[~2019-04-10] VITALS: Ht 170.2 cm; Wt 71.2 kg
[~2019-04-10 21:41] MED LIST changes: +ONDA4TAB7 PO; +OXYC1TAB22 PO
[2019-04-10 22:58] LABS: BASO # 0.1 x10^3/uL (0.0-0.2); BASO % 0 % (0-3); EOS # 0.2 x10^3/uL (0.0-0.7); EOS % 1 % (0-3); HEMATOCRIT 34.2 % (36.0-47.0); HEMOGLOBIN 11.2 g/dL (12.0-15.5); LYMPH # 2.2 x10^3/uL (1.0-4.8); LYMPH % 17 % (24-48); MEAN CORPUSCULAR HEMOGLOBIN 29 pg (25-35); MEAN CORPUSCULAR HGB CONC 33 g/dL (31-37); MEAN CORPUSCULAR VOLUME 89 fL (79-100); MONO % 8 % (0-9); NEUT # 9.6 x10^3uL (1.8-7.7); NEUT % 74 % (31-73); PLATELET COUNT 323 x10^3/uL (140-400); RED BLOOD COUNT 3.82 x10^6/uL (3.50-5.40); RED CELL DISTRIBUTION WIDTH 13.3 % (11.5-14.5)
[2019-04-10 22:59] LABS: CLARITY,URINE CLOUDY
[2019-04-10] MEDS ORDERED: ONDANSETRON PF 4 MG/2 ML VIAL. IV ONE (23:00)
[2019-04-10] MEDS ORDERED: IV NORMAL SALINE 1000ML BAG 1,000 ML IV SCH (23:00)
[2019-04-10] MEDS ORDERED: HYDROmorphone 2 MG/ML VIAL IV ONE (23:00)
[2019-04-10 23:05] LABS: COLOR,URINE ORANGE
[2019-04-10 23:06] LABS: RBC,URINE 0 /HPF (0-2); SQUAMOUS EPITHELIAL CELL,UR FEW /LPF
[2019-04-10 23:07] LABS: AMORPHOUS SEDIMENT,UR PRESENT /HPF; BACTERIA,URINE 0 /HPF (0-FEW)
[2019-04-10 23:08] LABS: PROTHROMBIN TIME PATIENT 14.1 SEC (11.7-14.0)
[2019-04-10 23:08] LABS: YEAST,URINE PRESENT /HPF
[2019-04-10 23:10] LABS: CREATININE 1.1 mg/dL (0.6-1.0); GFR 55.3
[2019-04-10 23:11] LABS: BARBITURATES NEG (NEG); BENZODIAZEPINES POS (NEG); CANNABINOIDS NEG (NEG); COCAINE NEG (NEG); METHADONE NEG (NEG); OPIATES POS (NEG); PHENCYCLIDINE NEG (NEG)
[2019-04-10 23:12] LABS: AMPHETAMINE/METHAMPHETAMINE NEG (NEG)
[2019-04-10 23:23] LABS: ALBUMIN 3.2 g/dL (3.4-5.0); ALBUMIN/GLOBULIN RATIO 0.9 (1.0-1.7); TOTAL BILIRUBIN 0.3 mg/dL (0.2-1.0); TOTAL PROTEIN 6.8 g/dL (6.4-8.2)
[2019-04-10] MEDS ORDERED: PROCHLORPERAZINE 10 MG/2 ML VIAL. IV ONE (23:45)
[2019-04-10] MEDS ORDERED: diphenhydrAMINE 50 MG/ML VIAL IVP ONE (23:55)
--- NOTE | 2019-04-10 23:56 | RAD ---
CT scan of the abdomen and pelvis without contrast 04/10/2019 CLINICAL HISTORY: Abdominal pain. Crohn's disease. TECHNIQUE: Unenhanced, contiguous, 2 mm axial sections were obtained through the abdomen and pelvis. One or more of the following individualized dose reduction techniques were utilized for this study: 1. Automated exposure control. 2. Adjustment of the mA and/or kV according to patient size. 3. Use of iterative reconstruction technique. FINDINGS: Comparison study is dated 03/14/2019. The absence of oral and intravenous contrast limits the study for the detection of solid organ and bowel pathology. Images through the lung bases demonstrate areas of subsegmental atelectasis involving both lower lobes. The liver, spleen, pancreas, adrenal glands and right kidney are within normal limits. A rounded area of increased attenuation is seen involving the midpole of the left kidney which may represent a hemorrhagic cyst. This measures 1 cm in size. It is unchanged. The abdominal aorta tapers normally. Surgical clips are seen within the gallbladder fossa consistent with a cholecystectomy. An ileostomy is seen within the left lower quadrant of the abdomen. Mildly dilated small bowel loops are seen throughout the abdomen and pelvis which have slightly thickened wall. Findings are nonspecific but could be seen with Crohn's disease. There is no definite evidence of bowel obstruction. No abnormal fluid collection is seen suggest evidence of an abscess. Images through the pelvis demonstrate the urinary bladder distended with urine. A small amount of free fluid is seen within the pelvis. Calcifications are seen within the pelvis consistent with phleboliths. The osseous structures are unchanged. IMPRESSION: Mildly dilated small bowel loops are seen throughout the abdomen and pelvis which have a thickened wall. These findings would be consistent with the patient's history of Crohn's disease. No obstruction is seen. No abscess is visualized. Electronically signed by: Raphael Helms MD (04/10/2019 11:53 PM) [facility]
--- NOTE | 2019-04-11 00:12 | PHYS DOC ---
Past Medical History Past Medical History: Abscess, Ovarian Cyst, P.I.D., Other Additional Past Medical Histor: Crohn's Past Surgical History: Appendectomy, Cholecystectomy, Hysterectomy, Oophorectomy, Other Additional Past Surgical Histo: Ilelostomy, oophorectomy, breast augmentation, multiple stoma revisions Alcohol Use: None Drug Use: None, Opiates Adult General Chief Complaint Chief Complaint: ABDOMINAL PAIN HPI HPI Patient is a 39 year old female who presents with complaining of abdominal pain and nausea and vomiting. Patient states she had history of Crohn's disease with ileostomy placement and had blood sugar. Patient complaining of constant generalized abdominal pain for the last 3 days with episodes of nausea and vomiting and unable to take anything by mouth. Patient states she had use of output ileostomy and generalized weakness. Patient states she took home Dilaudid without improvement of her pain and rated her pain 10 over 10. Review of Systems Review of Systems Constitutional: Denies fever or chills [] Eyes: Denies change in visual acuity, redness, or eye pain [] HENT: Denies nasal congestion or sore throat [] Respiratory: Denies cough or shortness of breath [] Cardiovascular: No additional information not addressed in HPI [] GI: Reports abdominal pain, nausea, vomiting, diarrhea [] : Denies dysuria or hematuria [] Musculoskeletal: Denies back pain or joint pain [] Integument: Denies rash or skin lesions [] Neurologic: Denies headache, focal weakness or sensory changes [] Endocrine: Denies polyuria or polydipsia [] All other systems were reviewed and found to be within normal limits, except as documented in this note. Current Medications Current Medications Current Medications Medications (Trade) Dose Ordered Sig/Jay Jay Start Time Stop Time Status Last Admin Dose Admin Diphenhydramine HCl (Benadryl) 50 mg 1X ONCE 04/10/19 23:55 04/10/19 23:56 DC 04/11/19 00:02 50 MG Hydromorphone HCl (Dilaudid) 1 mg 1X ONCE 04/10/19 23:00 04/10/19 23:01 DC 04/10/19 23:07 1 MG Ondansetron HCl (Zofran) 4 mg 1X ONCE 04/10/19 23:00 04/10/19 23:01 DC 04/10/19 23:07 4 MG Prochlorperazine Edisylate (Compazine) 10 mg 1X ONCE 04/10/19 23:45 04/10/19 23:46 DC Sodium Chloride 1,000 ml @ 1,000 mls/hr Q1H 04/10/19 23:00 04/10/19 23:59 DC 04/10/19 23:07 1,000 MLS/HR Allergies Allergies Allergies Coded Allergies Type Severity Reaction Last Updated Verified Iodinated Contrast- Oral and IV Dye Allergy Severe Hives 08/20/14 Yes clindamycin Allergy Severe Hives, feeling of thickening of the throat 08/25/14 Yes morphine Allergy Severe Hives 02/22/19 Yes promethazine Allergy Severe ANAPHALAXIS 08/23/14 Yes amoxicillin Allergy Intermediate Cephalosporins OK 08/21/17 Yes fentanyl Allergy Intermediate 08/04/14 Yes ketorolac Allergy Intermediate 02/22/19 Yes metoclopramide Allergy Intermediate 08/04/14 Yes Physical Exam Physical Exam Constitutional: Well developed, well nourished, moderate distress, non-toxic appearance. [] HENT: Normocephalic, atraumatic, oropharynx dry, no oral exudates, nose normal. [] Eyes: PERRLA, EOMI, conjunctiva normal, no discharge. [] Neck: Normal range of motion, no tenderness, supple, no stridor. [] Cardiovascular:Heart rate regular rhythm, no murmur [] Lungs & Thorax: Bilateral breath sounds clear to auscultation [] Abdomen: Bowel sounds normal, soft, ileostomy in left side of abdomen, no tenderness, no masses, no pulsatile masses. [] Skin: Warm, dry, no erythema, no rash. [] Back: No tenderness, no CVA tenderness. [] Extremities: No tenderness, no cyanosis, no clubbing, ROM intact, no edema. [] Neurologic: Alert and oriented X 3, normal motor function, normal sensory f unction, no focal deficits noted. [] Psychologic: Affect anxious, judgement normal, mood normal. [] Current Patient Data Vital Signs Vital Signs Date Time Temp Pulse Resp B/P (MAP) Pulse Ox O2 Delivery O2 Flow Rate FiO2 04/10/19 23:07 Room Air 04/10/19 22:47 98.2 129 138/85 (102) 97 98.2 Lab Values Laboratory Tests Test 04/10/19 22:05 5/29/19 22:35 Urine Collection Type Unknown Urine Color [place] Urine Clarity Cloudy Urine pH Urine Specific [place] 1.025 Urine Protein mg/dL (NEG-TRACE) Urine Glucose (UA) mg/dL (NEG) Urine Ketones (Stick) mg/dL (NEG) Urine Blood (NEG) Urine Nitrite (NEG) Urine Bilirubin (NEG) Urine Urobilinogen Dipstick mg/dL (0.2 mg/dL) Urine Leukocyte Esterase (NEG) Urine RBC 0 /HPF (0-2) Urine WBC 1-4 /HPF (0-4) Urine Squamous Epithelial Cells Few /LPF Urine Amorphous Sediment Present /HPF Urine Bacteria 0 /HPF (0-FEW) Urine Mucus Mod /LPF Urine Yeast Present /HPF Urine Opiates Screen Pos (NEG) Urine Methadone Screen Neg (NEG) Urine Barbiturates Neg (NEG) Urine Phencyclidine Screen Neg (NEG) Urine Amphetamine/Methamphetamine Neg (NEG) Urine Benzodiazepines Screen Pos (NEG) Urine Cocaine Screen Neg (NEG) Urine Cannabinoids Screen Neg (NEG) Urine Ethyl Alcohol Neg (NEG) White Blood Count 13.0 x10^3/uL (4.0-11.0) H Red Blood Count 3.82 x10^6/uL (3.50-5.40) Hemoglobin 11.2 g/dL (12.0-15.5) L Hematocrit 34.2 % (36.0-47.0) L Mean Corpuscular Volume 89 fL (79-100) Mean Corpuscular Hemoglobin 29 pg (25-35) Mean Corpuscular Hemoglobin Concent 33 g/dL (31-37) Red Cell Distribution Width 13.3 % (11.5-14.5) Platelet Count 323 x10^3/uL (140-400) Neutrophils (%) (Auto) 74 % (31-73) H Lymphocytes (%) (Auto) 17 % (24-48) L Monocytes (%) (Auto) 8 % (0-9) Eosinophils (%) (Auto) 1 % (0-3) Basophils (%) (Auto) 0 % (0-3) Neutrophils # (Auto) 9.6 x10^3uL (1.8-7.7) H Lymphocytes # (Auto) 2.2 x10^3/uL (1.0-4.8) Monocytes # (Auto) 1.0 x10^3/uL (0.0-1.1) Eosinophils # (Auto) 0.2 x10^3/uL (0.0-0.7) Basophils # (Auto) 0.1 x10^3/uL (0.0-0.2) Prothrombin Time 14.1 SEC (11.7-14.0) H Prothrombin Time INR 1.1 (0.8-1.1) Sodium Level 143 mmol/L (136-145) Potassium Level 3.0 mmol/L (3.5-5.1) L Chloride Level 102 mmol/L (98-107) Carbon Dioxide Level 31 mmol/L (21-32) Anion Gap 10 (6-14) Blood Urea Nitrogen 11 mg/dL (7-20) Creatinine 1.1 mg/dL (0.6-1.0) H Estimated GFR (Cockcroft-Gault) 55.3 BUN/Creatinine Ratio 10 (6-20) Glucose Level 117 mg/dL (70-99) H Lactic Acid Level 2.4 mmol/L (0.4-2.0) H Calcium Level 9.0 mg/dL (8.5-10.1) Total Bilirubin 0.3 mg/dL (0.2-1.0) Aspartate Amino Transferase (AST) 21 U/L (15-37) Alanine Aminotransferase (ALT) 30 U/L (14-59) Alkaline Phosphatase 105 U/L (46-116) Total Protein 6.8 g/dL (6.4-8.2) Albumin 3.2 g/dL (3.4-5.0) L Albumin/Globulin Ratio 0.9 (1.0-1.7) L Lipase 139 U/L (73-393) Laboratory Tests 04/10/19 22:35 Laboratory Tests 04/10/19 22:35 EKG EKG [] Radiology/Procedures Radiology/Procedures [][facility] [address] [place] [address] IMAGING REPORT Signed PATIENT: MATTHEW HOLGUIN ACCOUNT: [id number] : 1980 LOCATION: ER AGE: 39 SEX: F EXAM STATUS: REG ER ORD. PHYSICIAN: ADAN CARRION MD REASON: abdominal pain, Crohn's disease and recent surgery PROCEDURE: CT ABDOMEN PELVIS WO CONTRAST CT scan of the abdomen and pelvis without contrast 04/10/2019 CLINICAL HISTORY: Abdominal pain. Crohn's disease. TECHNIQUE: Unenhanced, contiguous, 2 mm axial sections were obtained through the abdomen and pelvis. One or more of the following individualized dose reduction techniques were utilized for this study: 1. Automated exposure control. 2. Adjustment of the mA and/or kV according to patient size. 3. Use of iterative reconstruction technique. FINDINGS: Comparison study is dated 03/14/2019. The absence of oral and intravenous contrast limits the study for the detection of solid organ and bowel pathology. Images through the lung bases demonstrate areas of subsegmental atelectasis involving both lower lobes. The liver, spleen, pancreas, adrenal glands and right kidney are within normal limits. A rounded area of increased attenuation is seen involving the midpole of the left kidney which may represent a hemorrhagic cyst. This measures 1 cm in size. It is unchanged. The abdominal aorta tapers normally. Surgical clips are seen within the gallbladder fossa consistent with a cholecystectomy. An ileostomy is seen within the left lower quadrant of the abdomen. Mildly dilated small bowel loops are seen throughout the abdomen and pelvis which have slightly thickened wall. Findings are nonspecific but could be seen with Crohn's disease. There is no definite evidence of bowel obstruction. No abnormal fluid collection is seen suggest evidence of an abscess. Images through the pelvis demonstrate the urinary bladder distended with urine. A small amount of free fluid is seen within the pelvis. Calcifications are seen within the pelvis consistent with phleboliths. The osseous structures are unchanged. IMPRESSION: Mildly dilated small bowel loops are seen throughout the abdomen and pelvis which have a thickened wall. These findings would be consistent with the patient's history of Crohn's disease. No obstruction is seen. No abscess is visualized. Electronically signed by: Raphael Helms MD (04/10/2019 11:53 PM) [facility] DICTATED and SIGNED BY: RAPHAEL HELMS MD DATE: 04/10/19 7034 Course & Med Decision Making Course & Med Decision Making Pertinent Labs and Imaging studies reviewed. (See chart for details) Patient requiring admission for further evaluation and treatment. Discussed with Dr. Viera who is in agreement with admission. Discussed findings and plan with patient and family, who acknowledge understanding and agreement. Dragon Disclaimer Dragon Disclaimer This electronic medical record was generated, in whole or in part, using a voice recognition dictation system. Departure Departure Impression: Primary Impression: Intractable vomiting Additional Impressions: Abdominal pain Sepsis Hypokalemia Anemia Crohns disease Post-operative state Disposition: 09 ADMITTED INPATIENT (at 0001) Admitting Physician: LEELA (Dr Viera accepted admission) Referrals: LELAND JOHNSTON (PCP) Problem Qualifiers Primary Impression: Intractable vomiting Vomiting type: unspecified Nausea presence: with nausea Qualified Codes: R11.2 - Nausea with vomiting, unspecified Additional Impressions: Abdominal pain Abdominal location: unspecified location Qualified Codes: R10.9 - Unspecified abdominal pain Sepsis Sepsis type: sepsis due to unspecified organism Qualified Codes: A41.9 - Sepsis, unspecified organism Anemia Anemia type: unspecified type Qualified Codes: D64.9 - Anemia, unspecified Crohns disease Gastrointestinal tract location: unspecified location Digestive disease complication type: unspecified complication Qualified Codes: K50.919 - Crohn's disease, unspecified, with unspecified complications ADAN CARRION MD April 11, 2019 00:12
[2019-04-11] MEDS ORDERED: cefTRIAXone IV Push 1 GM VIAL. IVP ONE (00:15)
[2019-04-11] MEDS ORDERED: IV NORMAL SALINE 1000ML BAG 1,000 ML IV ONE (00:15)
[2019-04-11] MEDS ORDERED: ONDANSETRON PF 4 MG/2 ML VIAL. IV PRN (00:30)
[2019-04-11] MEDS: HYDROmorphone 2 MG/ML VIAL IV PRN ×5 (01:41→21:34)
[2019-04-11] MEDS: POTASSIUM CHLORIDE 10MEQ 100 ML IV SCH ×2 (01:42→02:47)
[2019-04-11] MEDS: IV NORMAL SALINE 1000ML BAG 1,000 ML IV SCH ×4 (01:47→20:30)
[2019-04-11 03:25] VITALS: BP 118/50
[2019-04-11 07:20] VITALS: BP 114/73
[2019-04-11] MEDS: HYDROmorphone 2 MG/ML VIAL IVP PRN ×2 (08:38→11:42)
[2019-04-11 11:20] VITALS: BP 114/71
[2019-04-11] MEDS: ONDANSETRON PF 4 MG/2 ML VIAL. IV PRN (11:41)
[2019-04-11] MEDS: HYDROCORTISONE 1% TOPICAL CREAM 30GM TUBE. TP SCH ×2 (11:42→21:33)
--- NOTE | 2019-04-11 12:38 | HP ---
ADMIT DATE: 04/11/2019 CHIEF COMPLAINT: Abdominal pain. HISTORY OF PRESENT ILLNESS: The patient is a pleasant middle-aged female, who has severe Crohn's disease, has had multiple surgeries. She is well known to our service. We have had her in the hospital several times in the past month. She apparently did undergo a resection of some more bowel a couple of weeks ago at [facility], they did lysis of adhesions and repaired an umbilical hernia. Her ostomy now is functioning, but she has severe abdominal pain. We did a CAT scan in the ER and it showed mildly dilated small bowel loops through the abdomen which have a thickened wall consistent with Crohn's. She rates her symptoms at 10/10. She has associated nausea, it has been occurring for several days. She tried increasing her home meds, but that did not work and food makes it worse. I discussed the case with ER physician. We are going to admit the patient and consult General Surgery. PAST MEDICAL HISTORY: Severe Crohn's with multiple surgeries, ovarian cyst, PID, appendectomy, cholecystectomy, hysterectomy, oophorectomy, ileostomy, breast augmentation, multiple stoma revisions. ALLERGIES: AMOXICILLIN, CLINDAMYCIN, FENTANYL, METOCLOPRAMIDE, MORPHINE, PROMETHAZINE and TORADOL. FAMILY HISTORY: Coronary disease. SOCIAL HISTORY: She does not drink, smoke or take drugs. She is a nurse. MEDICATIONS: Reviewed. She is on 9 home meds including Benadryl, clonazepam, Zofran, Protonix, Biotin, vitamins, Dilaudid. REVIEW OF SYSTEMS: GENERAL: No history of weight change, weakness or fevers. SKIN: No bruising, hair changes or rashes. EYES: No blurred, double or loss of vision. NOSE AND THROAT: No history of nosebleeds, hoarseness or sore throat. HEART: No history of palpitations, chest pain or shortness of breath on exertion. LUNGS: Denies cough, hemoptysis, wheezing or shortness of breath. GASTROINTESTINAL: She complains of abdominal pain. GENITOURINARY: No history of frequency, urgency, hesitancy or nocturia. NEUROLOGIC: Denies history of numbness, tingling, tremor or weakness. PSYCHIATRIC: No history of panic, anxiety or depression. ENDOCRINE: No history of heat or cold intolerance, polyuria or polydipsia. EXTREMITIES: Denies muscle weakness, joint pain, pain on walking or stiffness. PHYSICAL EXAMINATION: VITAL SIGNS: Temperature is afebrile, pulse 98, respirations 18, blood pressure 114/71, O2 sat 99%. GENERAL: She is alert, cooperative, complaining of pain. HEART: Normal S1 and S2. LUNGS: Clear. ABDOMEN: Soft, tender. EXTREMITIES: Trace edema. SKIN: No rash. ENDOCRINE: No thyromegaly. LYMPHATICS: No cervical nodes. HEMATOPOIETIC: No bruising. PSYCHIATRIC: She is a little depressed. LABORATORY DATA: White count is 13, hemoglobin 11. Potassium was low at 3, glucose 117. Lactic acid 2.4. Drug screen is positive for opiates and benzos, which I believe she has scripts for. Urinalysis is negative. INR 1. ASSESSMENT AND PLAN: Abdominal pain in a middle-aged female who has severe Crohn's. The patient is being admitted. We will consult General Surgery, p.r.n. IV narcotics, IV Zofran, home meds, frequent labs, deep venous thrombosis prophylaxis. Full code. Prognosis is guarded. ALEJANDRO PRINCE DO DR: TY/ismael JOB#: [id number] / [id number]
--- NOTE | 2019-04-11 14:17 | NUR ---
SW following for discharge planning. Discussed with RN, pt is from home with spouse. Pt was recently discharged home with TPN with [facility]. No dc recommendations/SW needs noted at this time.
[2019-04-11 15:00] VITALS: BP 110/71
--- NOTE | 2019-04-11 17:39 | NUR ---
This RN tried twice to place a matos and was unsuccessful. will have warehouse worker 2nd shift try and place matos. specimen cup is in bathroom to get sample.
--- NOTE | 2019-04-11 17:52 | PDOC2 ---
UROLOGY CONSULT Date of Consult Date of Consult DATE: 04/11/19 TIME: 17:43 Reason for Consult Reason for Consult: hematuria Identification/Chief Complaint Chief Complaint abdominal pain Source Source: Caregiver, Chart review, Patient History of Present Illness Reason for Visit: 39 yo female admitted for abdominal pain. She underwent a bowel resection for Crohn's disease about 2 weeks ago and has had pain since then. She has had dysuria since matos removed after surgery. She has history of interstitial cystitis and almost always has dysuria and difficulty urinating after surgeries. She sees Dr. Talley regarding the interstitial cystitis, treated with pelvic floor PT in the past. She started having intermittent gross hematuria about 2 days ago[address] No clots. [address] scan 04/10 - reviewed the images, which shows normal appearing kidneys and ureters without hydro or stones. Bladder has normal appearance with minimal fluid. UA earlier today showed no RBCs, WBCs, or bacteria. This afternoon patient reports bleeding in urine again - confirmed by nurse. Past Medical History Cardiovascular: No pertinent hx Pulmonary: No pertinent hx CENTRAL NERVOUS SYSTEM: Carpal Tunnel Syndrome GI: Other Heme/Onc: B12 deficiency Psych: No pertinent hx Musculoskeletal: low back pain Past Surgical History Past Surgical History: Appendectomy, Cholecystectomy, Hysterectomy, Colon Resection Family History Family History: Cancer Social History ALCOHOL: none Lives: with Family Current Medications Current Medications Current Medications Ceftriaxone Sodium (Rocephin) 1 gm 1X ONCE IVP Last administered on 04/11/19at 00:44; Start 04/11/19 at 00:15; Stop 04/11/19 at 00:16; Status DC Diphenhydramine HCl (Benadryl) 50 mg 1X ONCE IVP Last administered on 04/11/19at 00:02; Start 04/10/19 at 23:55; Stop 04/10/19 at 23:56; Status DC Hydrocortisone (Cortaid) 1 hussain BID TP Last administered on 04/11/19at 11:42; Start 04/11/19 at 10:00 Hydromorphone HCl (Dilaudid) 0.4 mg PRN Q3HRS PRN IVP PAIN Last administered on 04/11/19at 11:42; Start 04/11/19 at 06:15; Stop 04/11/19 at 13:30; Status DC Hydromorphone HCl (Dilaudid) 1 mg 1X ONCE IV Last administered on 04/10/19 23:07; Start 04/10/19 at 23:00; Stop 04/10/19 at 23:01; Status DC Hydromorphone HCl (Dilaudid) 1 mg PRN Q2HR PRN IV PAIN Last administered on 04/11/19at 03:49; Start 04/11/19 at 00:30; Stop 04/11/19 at 03:49; Status DC Hydromorphone HCl (Dilaudid) 1 mg PRN Q3HRS PRN IV PAIN Last administered on 04/11/19at 15:21; Start 04/11/19 at 13:30 Ondansetron HCl (Zofran) 4 mg 1X ONCE IV Last administered on 04/10/19at 23:07; Start 04/10/19 at 23:00; Stop 04/10/19 at 23:01; Status DC Ondansetron HCl (Zofran) 4 mg PRN Q6HRS PRN IV NAUSEA/VOMITING Last administered on 04/11/19at 11:41; Start 04/11/19 at 06:15 Ondansetron HCl (Zofran) 4 mg PRN Q8HRS PRN IV NAUSEA/VOMITING Last administered on 04/11/19 03:57; Start 04/11/19 at 00:30; Stop 04/11/19 at 03:58; Status DC Potassium Chloride/Water 100 ml @ 100 mls/hr Q1H IV Last administered on 04/11/19 02:47; Start 04/11/19 at 00:30; Stop 04/11/19 at 02:29; Status DC Prochlorperazine Edisylate (Compazine) 10 mg 1X ONCE IV ; Start 04/10/19 at 23:45; Stop 04/10/19 at 23:46; Status DC Sodium Chloride 1,000 ml @ 150 mls/hr Q6H40M IV Last administered on 04/11/19at 11:41; Start 04/11/19 at 00:30; Stop 04/12/19 at 00:29 Sodium Chloride 1,000 ml @ 1,000 mls/hr 1X ONCE IV Last administered on 04/11/19at 00:44; Start 04/11/19 at 00:15; Stop 04/11/19 at 01:14; Status DC Sodium Chloride 1,000 ml @ 1,000 mls/hr Q1H IV Last administered on 04/10/19at 23:07; Start 04/10/19 at 23:00; Stop 04/10/19 at 23:59; Status DC Allergies Allergies: Coded Allergies: Iodinated Contrast- Oral and IV Dye (Verified Allergy, Severe, Hives, 08/20/14) clindamycin (Verified Allergy, Severe, Hives, feeling of thickening of the throat, 08/25/14) morphine (Verified Allergy, Severe, Hives, 02/22/19) TOLERATE HYDROMORPHONE promethazine (Verified Allergy, Severe, ANAPHALAXIS, 08/23/14) amoxicillin (Verified Allergy, Intermediate, Cephalosporins OK, 08/21/17) fentanyl (Verified Allergy, Intermediate, 08/04/14) ketorolac (Verified Allergy, Intermediate, 02/22/19) metoclopramide (Verified Allergy, Intermediate, 08/04/14) ROS Review Of Systems: CONSTITUTIONAL: No fever or chills EYES: No recent changes SKIN: No rash or itching CARDIOVASCULAR: No chest pain, syncope, palpitations, or edema RESPIRATORY: No SOB or cough GASTROINTESTINAL: + nausea, vomiting, and abdominal pain NEUROLOGICAL: No headaches or weakness ENDOCRINE: No cold or heat intolerance GENITOURINARY: As in HPI MUSCULOSKELETAL: No back pain or joint pain LYMPHATICS: No enlarged lymph nodes PSYCHIATRIC: + depression Physical Exam Physical Exam: General: Pleasant, no acute distress, well groomed Eyes: conjunctiva anicteric, eyes full range of motion ENT: moist oral mucosa, normal dentition Neck: Trachea midline, no masses Respiratory: unlabored breathing, not using accessory muscles, no crackles or wheezes Cardiovascular: Regular rate and rhythm, no peripheral edema Abdomen: nondistended, moderate diffuse tenderness, no hepatosplenomegaly, no m asses, stoma LLQ Skin: no rashes or skin lesions on visualized skin Psych: normal mood, affect. Alert and oriented x 3. Vitals VITALS Vital Signs Date Time Temp Pulse Resp B/P (MAP) Pulse Ox O2 Delivery O2 Flow Rate FiO2 04/11/19 16:04 98 Room Air 04/11/19 15:00 98.0 90 18 110/71 (84) 98.0 Labs Labs Laboratory Tests Test 04/10/19 22:05 04/10/19 22:35 04/11/19 01:55 Urine Collection Type Unknown Urine Color [place] Urine Clarity Cloudy Urine pH Urine Specific [place] 1.025 Urine Protein mg/dL (NEG-TRACE) Urine Glucose (UA) mg/dL (NEG) Urine Ketones (Stick) mg/dL (NEG) Urine Blood (NEG) Urine Nitrite (NEG) Urine Bilirubin (NEG) Urine Urobilinogen Dipstick mg/dL (0.2 mg/dL) Urine Leukocyte Esterase (NEG) Urine RBC 0 /HPF (0-2) Urine WBC 1-4 /HPF (0-4) Urine Squamous Epithelial Cells Few /LPF Urine Amorphous Sediment Present /HPF Urine Bacteria 0 /HPF (0-FEW) Urine Mucus Mod /LPF Urine Yeast Present /HPF Urine Opiates Screen Pos (NEG) Urine Methadone Screen Neg (NEG) Urine Barbiturates Neg (NEG) Urine Phencyclidine Screen Neg (NEG) Urine Amphetamine/Methamphetamine Neg (NEG) Urine Benzodiazepines Screen Pos (NEG) Urine Cocaine Screen Neg (NEG) Urine Cannabinoids Screen Neg (NEG) Urine Ethyl Alcohol Neg (NEG) White Blood Count 13.0 x10^3/uL (4.0-11.0) Red Blood Count 3.82 x10^6/uL (3.50-5.40) Hemoglobin 11.2 g/dL (12.0-15.5) Hematocrit 34.2 % (36.0-47.0) Mean Corpuscular Volume 89 fL (79-100) Mean Corpuscular Hemoglobin 29 pg (25-35) Mean Corpuscular Hemoglobin Concent 33 g/dL (31-37) Red Cell Distribution Width 13.3 % (11.5-14.5) Platelet Count 323 x10^3/uL (140-400) Neutrophils (%) (Auto) 74 % (31-73) Lymphocytes (%) (Auto) 17 % (24-48) Monocytes (%) (Auto) 8 % (0-9) Eosinophils (%) (Auto) 1 % (0-3) Basophils (%) (Auto) 0 % (0-3) Neutrophils # (Auto) 9.6 x10^3uL (1.8-7.7) Lymphocytes # (Auto) 2.2 x10^3/uL (1.0-4.8) Monocytes # (Auto) 1.0 x10^3/uL (0.0-1.1) Eosinophils # (Auto) 0.2 x10^3/uL (0.0-0.7) Basophils # (Auto) 0.1 x10^3/uL (0.0-0.2) Prothrombin Time 14.1 SEC (11.7-14.0) Prothromb Time International Ratio 1.1 (0.8-1.1) Sodium Level 143 mmol/L (136-145) Potassium Level 3.0 mmol/L (3.5-5.1) Chloride Level 102 mmol/L (98-107) Carbon Dioxide Level 31 mmol/L (21-32) Anion Gap 10 (6-14) Blood Urea Nitrogen 11 mg/dL (7-20) Creatinine 1.1 mg/dL (0.6-1.0) Estimated GFR (Cockcroft-Gault) 55.3 BUN/Creatinine Ratio 10 (6-20) Glucose Level 117 mg/dL (70-99) Lactic Acid Level 2.4 mmol/L (0.4-2.0) 1.0 mmol/L (0.4-2.0) Calcium Level 9.0 mg/dL (8.5-10.1) Total Bilirubin 0.3 mg/dL (0.2-1.0) Aspartate Amino Transf (AST/SGOT) 21 U/L (15-37) Alanine Aminotransferase (ALT/SGPT) 30 U/L (14-59) Alkaline Phosphatase 105 U/L (46-116) Total Protein 6.8 g/dL (6.4-8.2) Albumin 3.2 g/dL (3.4-5.0) Albumin/Globulin Ratio 0.9 (1.0-1.7) Lipase 139 U/L (73-393) Laboratory Tests Test 04/10/19 22:05 04/10/19 22:35 04/11/19 01:55 Urine Collection Type Unknown Urine Color [place] Urine Clarity Cloudy Urine pH Urine Specific [place] 1.025 Urine Protein mg/dL (NEG-TRACE) Urine Glucose (UA) mg/dL (NEG) Urine Ketones (Stick) mg/dL (NEG) Urine Blood (NEG) Urine Nitrite (NEG) Urine Bilirubin (NEG) Urine Urobilinogen Dipstick mg/dL (0.2 mg/dL) Urine Leukocyte Esterase (NEG) Urine RBC 0 /HPF (0-2) Urine WBC 1-4 /HPF (0-4) Urine Squamous Epithelial Cells Few /LPF Urine Amorphous Sediment Present /HPF Urine Bacteria 0 /HPF (0-FEW) Urine Mucus Mod /LPF Urine Yeast Present /HPF Urine Opiates Screen Pos (NEG) Urine Methadone Screen Neg (NEG) Urine Barbiturates Neg (NEG) Urine Phencyclidine Screen Neg (NEG) Urine Amphetamine/Methamphetamine Neg (NEG) Urine Benzodiazepines Screen Pos (NEG) Urine Cocaine Screen Neg (NEG) Urine Cannabinoids Screen Neg (NEG) Urine Ethyl Alcohol Neg (NEG) White Blood Count 13.0 x10^3/uL (4.0-11.0) Red Blood Count 3.82 x10^6/uL (3.50-5.40) Hemoglobin 11.2 g/dL (12.0-15.5) Hematocrit 34.2 % (36.0-47.0) Mean Corpuscular Volume 89 fL (79-100) Mean Corpuscular Hemoglobin 29 pg (25-35) Mean Corpuscular Hemoglobin Concent 33 g/dL (31-37) Red Cell Distribution Width 13.3 % (11.5-14.5) Platelet Count 323 x10^3/uL (140-400) Neutrophils (%) (Auto) 74 % (31-73) Lymphocytes (%) (Auto) 17 % (24-48) Monocytes (%) (Auto) 8 % (0-9) Eosinophils (%) (Auto) 1 % (0-3) Basophils (%) (Auto) 0 % (0-3) Neutrophils # (Auto) 9.6 x10^3uL (1.8-7.7) Lymphocytes # (Auto) 2.2 x10^3/uL (1.0-4.8) Monocytes # (Auto) 1.0 x10^3/uL (0.0-1.1) Eosinophils # (Auto) 0.2 x10^3/uL (0.0-0.7) Basophils # (Auto) 0.1 x10^3/uL (0.0-0.2) Prothrombin Time 14.1 SEC (11.7-14.0) Prothromb Time International Ratio 1.1 (0.8-1.1) Sodium Level 143 mmol/L (136-145) Potassium Level 3.0 mmol/L (3.5-5.1) Chloride Level 102 mmol/L (98-107) Carbon Dioxide Level 31 mmol/L (21-32) Anion Gap 10 (6-14) Blood Urea Nitrogen 11 mg/dL (7-20) Creatinine 1.1 mg/dL (0.6-1.0) Estimated GFR (Cockcroft-Gault) 55.3 BUN/Creatinine Ratio 10 (6-20) Glucose Level 117 mg/dL (70-99) Lactic Acid Level 2.4 mmol/L (0.4-2.0) 1.0 mmol/L (0.4-2.0) Calcium Level 9.0 mg/dL (8.5-10.1) Total Bilirubin 0.3 mg/dL (0.2-1.0) Aspartate Amino Transf (AST/SGOT) 21 U/L (15-37) Alanine Aminotransferase (ALT/SGPT) 30 U/L (14-59) Alkaline Phosphatase 105 U/L (46-116) Total Protein 6.8 g/dL (6.4-8.2) Albumin 3.2 g/dL (3.4-5.0) Albumin/Globulin Ratio 0.9 (1.0-1.7) Lipase 139 U/L (73-393) Assessment/Plan Assessment/Plan Gross hematuria difficult to explain, especially with normal UA earlier today. Possibility that she has a bladder injury related to recent surgery - not likely but will get cystogram to assess. Can remove matos if cystogram shows no leak. Recheck UA since urine now apparently bloody. Most likely hematuria related to her chronic bladder pain / interstitial cystitis - no urgent treatment for that. Follow with Dr. Talley. BINH ARRINGTON MD April 11, 2019 17:52
[2019-04-11] MEDS: diphenhydrAMINE 50 MG/ML VIAL IVP PRN (18:24)
[2019-04-11 19:06] VITALS: BP 104/67
[2019-04-11 23:31] VITALS: BP 101/62
[2019-04-12] VITALS (7 sets, daily range): BP systolic 90–109; BP diastolic 35–76
[2019-04-12] MEDS: HYDROmorphone 2 MG/ML VIAL IV PRN ×8 (00:37→21:36)
[2019-04-12] MEDS: diphenhydrAMINE 50 MG/ML VIAL IVP PRN ×4 (00:37→21:36)
[2019-04-12] MEDS: ONDANSETRON PF 4 MG/2 ML VIAL. IV PRN ×2 (03:41→11:08)
[2019-04-12 07:31] LABS: BILIRUBIN,URINE NEGATIVE (NEG); CLARITY,URINE CLEAR; COLOR,URINE YELLOW; NITRITE,URINE NEGATIVE (NEG); PROTEIN,URINE NEGATIVE (NEG-TRACE); UROBILINOGEN,URINE 0.2 mg/dL (0.2 mg/dL)
[2019-04-12 07:42] LABS: BACTERIA,URINE FEW /HPF (0-FEW); RBC,URINE OCC /HPF (0-2); SQUAMOUS EPITHELIAL CELL,UR MOD /LPF
[2019-04-12 07:43] LABS: YEAST,URINE PRESENT /HPF
[2019-04-12] MEDS ORDERED: DIATRIZOATE MEGLUMINE 18% 300 ML SOLUTION. BLADIN ONE (08:15)
--- NOTE | 2019-04-12 09:10 | RAD ---
Cystogram, 04/12/2019: History: Hematuria, bladder spasms, possible bladder injury, recent surgery The bladder was filled with contrast in a retrograde manner via gravity drip infusion through a Ingram catheter. 1.4 minutes of fluoroscopy time was utilized. 8 fluoroscopic spot images were recorded. The bladder garcia are smooth. No bladder leak or fistula is evident. No vesicoureteral reflux was demonstrated. IMPRESSION: No significant bladder abnormality is detected.
[2019-04-12] MEDS: HYDROCORTISONE 1% TOPICAL CREAM 30GM TUBE. TP SCH ×2 (09:30→21:35)
--- NOTE | 2019-04-12 12:08 | PDOC ---
[facility] [facility] PROGRESS NOTE Vitals Vitals Vital Signs Date Time Temp Pulse Resp B/P (MAP) Pulse Ox O2 Delivery O2 Flow Rate FiO2 04/12/19 11:01 98.5 83 16 102/70 (81) 100 Room Air 98.5 Physical Exam Lungs: Clear Labs Labs: Laboratory Tests Test 04/12/19 06:50 Urine Collection Type Unknown Urine Color Yellow Urine Clarity Clear Urine pH 5.0 Urine Specific [place] 1.015 Urine Protein Negative mg/dL (NEG-TRACE) Urine Glucose (UA) Negative mg/dL (NEG) Urine Ketones (Stick) Negative mg/dL (NEG) Urine Blood Trace (NEG) Urine Nitrite Negative (NEG) Urine Bilirubin Negative (NEG) Urine Urobilinogen Dipstick 0.2 mg/dL (0.2 mg/dL) Urine Leukocyte Esterase Small (NEG) Urine RBC Occ /HPF (0-2) Urine WBC 5-10 /HPF (0-4) Urine Squamous Epithelial Cells Mod /LPF Urine Bacteria Few /HPF (0-FEW) Urine Mucus Mod /LPF Urine Yeast Present /HPF Assessment and Plan Assessmemt and Plan Problems Medical Problems: (1) Abdominal pain Status: Acute (2) Anemia Status: Acute (3) Crohns disease Status: Acute (4) Hypokalemia Status: Acute (5) Sepsis Status: Acute Surgical Problems: (1) Post-operative state Status: Acute Comment Review of Relevant I have reviewed the following items kathy (where applicable) has been applied. Labs Laboratory Tests Test 04/10/19 22:05 04/10/19 22:35 04/11/19 01:55 04/12/19 06:50 Urine Collection Type Unknown Unknown Urine Color [place] Yellow Urine Clarity Cloudy Clear Urine pH 5.0 Urine Specific [place] 1.025 1.015 Urine Protein mg/dL (NEG-TRACE) Negative mg/dL (NEG-TRACE) Urine Glucose (UA) mg/dL (NEG) Negative mg/dL (NEG) Urine Ketones (Stick) mg/dL (NEG) Negative mg/dL (NEG) Urine Blood (NEG) Trace (NEG) Urine Nitrite (NEG) Negative (NEG) Urine Bilirubin (NEG) Negative (NEG) Urine Urobilinogen Dipstick mg/dL (0.2 mg/dL) 0.2 mg/dL (0.2 mg/dL) Urine Leukocyte Esterase (NEG) Small (NEG) Urine RBC 0 /HPF (0-2) Occ /HPF (0-2) Urine WBC 1-4 /HPF (0-4) 5-10 /HPF (0-4) Urine Squamous Epithelial Cells Few /LPF Mod /LPF Urine Amorphous Sediment Present /HPF Urine Bacteria 0 /HPF (0-FEW) Few /HPF (0-FEW) Urine Mucus Mod /LPF Mod /LPF Urine Yeast Present /HPF Present /HPF Urine Opiates Screen Pos (NEG) Urine Methadone Screen Neg (NEG) Urine Barbiturates Neg (NEG) Urine Phencyclidine Screen Neg (NEG) Urine Amphetamine/Methamphetamine Neg (NEG) Urine Benzodiazepines Screen Pos (NEG) Urine Cocaine Screen Neg (NEG) Urine Cannabinoids Screen Neg (NEG) Urine Ethyl Alcohol Neg (NEG) White Blood Count 13.0 x10^3/uL (4.0-11.0) Red Blood Count 3.82 x10^6/uL (3.50-5.40) Hemoglobin 11.2 g/dL (12.0-15.5) Hematocrit 34.2 % (36.0-47.0) Mean Corpuscular Volume 89 fL (79-100) Mean Corpuscular Hemoglobin 29 pg (25-35) Mean Corpuscular Hemoglobin Concent 33 g/dL (31-37) Red Cell Distribution Width 13.3 % (11.5-14.5) Platelet Count 323 x10^3/uL (140-400) Neutrophils (%) (Auto) 74 % (31-73) Lymphocytes (%) (Auto) 17 % (24-48) Monocytes (%) (Auto) 8 % (0-9) Eosinophils (%) (Auto) 1 % (0-3) Basophils (%) (Auto) 0 % (0-3) Neutrophils # (Auto) 9.6 x10^3uL (1.8-7.7) Lymphocytes # (Auto) 2.2 x10^3/uL (1.0-4.8) Monocytes # (Auto) 1.0 x10^3/uL (0.0-1.1) Eosinophils # (Auto) 0.2 x10^3/uL (0.0-0.7) Basophils # (Auto) 0.1 x10^3/uL (0.0-0.2) Prothrombin Time 14.1 SEC (11.7-14.0) Prothromb Time International Ratio 1.1 (0.8-1.1) Sodium Level 143 mmol/L (136-145) Potassium Level 3.0 mmol/L (3.5-5.1) Chloride Level 102 mmol/L (98-107) Carbon Dioxide Level 31 mmol/L (21-32) Anion Gap 10 (6-14) Blood Urea Nitrogen 11 mg/dL (7-20) Creatinine 1.1 mg/dL (0.6-1.0) Estimated GFR (Cockcroft-Gault) 55.3 BUN/Creatinine Ratio 10 (6-20) Glucose Level 117 mg/dL (70-99) Lactic Acid Level 2.4 mmol/L (0.4-2.0) 1.0 mmol/L (0.4-2.0) Calcium Level 9.0 mg/dL (8.5-10.1) Total Bilirubin 0.3 mg/dL (0.2-1.0) Aspartate Amino Transf (AST/SGOT) 21 U/L (15-37) Alanine Aminotransferase (ALT/SGPT) 30 U/L (14-59) Alkaline Phosphatase 105 U/L (46-116) Total Protein 6.8 g/dL (6.4-8.2) Albumin 3.2 g/dL (3.4-5.0) Albumin/Globulin Ratio 0.9 (1.0-1.7) Lipase 139 U/L (73-393) Laboratory Tests Test 04/12/19 06:50 Urine Collection Type Unknown Urine Color Yellow Urine Clarity Clear Urine pH 5.0 Urine Specific [place] 1.015 Urine Protein Negative mg/dL (NEG-TRACE) Urine Glucose (UA) Negative mg/dL (NEG) Urine Ketones (Stick) Negative mg/dL (NEG) Urine Blood Trace (NEG) Urine Nitrite Negative (NEG) Urine Bilirubin Negative (NEG) Urine Urobilinogen Dipstick 0.2 mg/dL (0.2 mg/dL) Urine Leukocyte Esterase Small (NEG) Urine RBC Occ /HPF (0-2) Urine WBC 5-10 /HPF (0-4) Urine Squamous Epithelial Cells Mod /LPF Urine Bacteria Few /HPF (0-FEW) Urine Mucus Mod /LPF Urine Yeast Present /HPF Medications Current Medications Sodium Chloride 1,000 ml @ 1,000 mls/hr Q1H IV Last administered on 04/10/19at 23:07; Start 04/10/19 at 23:00; Stop 04/10/19 at 23:59; Status DC Ondansetron HCl (Zofran) 4 mg 1X ONCE IV Last administered on 04/10/19at 23:07; Start 04/10/19 at 23:00; Stop 04/10/19 at 23:01; Status DC Hydromorphone HCl (Dilaudid) 1 mg 1X ONCE IV Last administered on 04/10/19at 23:07; Start 04/10/19 at 23:00; Stop 04/10/19 at 23:01; Status DC Prochlorperazine Edisylate (Compazine) 10 mg 1X ONCE IV ; Start 04/10/19 at 23:45; Stop 04/10/19 at 23:46; Status DC Diphenhydramine HCl (Benadryl) 50 mg 1X ONCE IVP Last administered on 04/11/19at 00:02; Start 04/10/19 at 23:55; Stop 04/10/19 at 23:56; Status DC Ceftriaxone Sodium (Rocephin) 1 gm 1X ONCE IVP Last administered on 04/11/19at 00:44; Start 04/11/19 at 00:15; Stop 04/11/19 at 00:16; Status DC Potassium Chloride/Water 100 ml @ 100 mls/hr Q1H IV Last administered on 04/11/19at 02:47; Start 04/11/19 at 00:30; Stop 04/11/19 at 02:29; Status DC Sodium Chloride 1,000 ml @ 1,000 mls/hr 1X ONCE IV Last administered on 04/11/19at 00:44; Start 04/11/19 at 00:15; Stop 04/11/19 at 01:14; Status DC Ondansetron HCl (Zofran) 4 mg PRN Q8HRS PRN IV NAUSEA/VOMITING Last administered on 04/11/19at 03:57; Start 04/11/19 at 00:30; Stop 04/11/19 at 03:58; Status DC Sodium Chloride 1,000 ml @ 150 mls/hr Q6H40M IV Last administered on 04/11/19at 18:29; Start 04/11/19 at 00:30; Stop 04/12/19 at 00:29; Status DC Hydromorphone HCl (Dilaudid) 1 mg PRN Q2HR PRN IV PAIN Last administered on 04/11/19at 03:49; Start 04/11/19 at 00:30; Stop 04/11/19 at 03:49; Status DC Hydromorphone HCl (Dilaudid) 0.4 mg PRN Q3HRS PRN IVP PAIN Last administered on 04/11/19at 11:42; Start 04/11/19 at 06:15; Stop 04/11/19 at 13:30; Status DC Ondansetron HCl (Zofran) 4 mg PRN Q6HRS PRN IV NAUSEA/VOMITING Last administered on 04/12/19at 11:08; Start 04/11/19 at 06:15 Hydrocortisone (Cortaid) 1 hussain BID TP Last administered on 04/12/19at 09:30; Start 04/11/19 at 10:00 Hydromorphone HCl (Dilaudid) 1 mg PRN Q3HRS PRN IV PAIN Last administered on 04/12/19at 09:30; Start 04/11/19 at 13:30 Diphenhydramine HCl (Benadryl) 50 mg PRN Q6HRS PRN IVP ITCHING Last administe red on 04/12/19at 06:46; Start 04/11/19 at 18:00 Diatrizoate Meglumine (Cystografin Urethral) 300 ml 1X ONCE BLADIN ; Start 03/15 12/01 at 08:15; Stop 04/12/19 at 08:16; Status DC Active Scripts Active Reported [dilaudid liquid] 1.5 Mg PO PRN Q8HRS PRN [vitamin B12 inject.] MONTHLY Vitamin D3 (Cholecalciferol (Vitamin D3)) 5,000 Unit Tablet 5,000 Unit PO WEEKLY Tablet (Pnv Cmb#95/Ferrous Fumarate/Fa) 1 Each Tablet 1 Tab PO DAILY Benadryl (Diphenhydramine Hcl) 25 Mg Capsule 25 Mg PO PRN Q4-6HRS PRN Zofran Odt (Ondansetron) 4 Mg Tab.rapdis 4 Mg PO BID PRN Biotin 10,000 Mcg Tab.rapdis 10,000 Mcg PO DAILY Pantoprazole Sodium 40 Mg Tablet.dr 40 Mg PO DAILY Clonazepam 1 Mg Tablet 1 Tab PO PRN BID PRN Vitals/I & O Vital Sign - Last 24 Hours 04/11/19 04/11/19 04/11/19 04/11/19 12:29 15:00 15:21 18:24 Temp 98.0 98.0 Pulse 90 Resp 18 B/P (MAP) 110/71 (84) Pulse Ox 98 98 98 98 O2 Delivery Room Air Room Air Room Air Room Air 04/11/19 04/11/19 04/11/19 04/11/19 19:06 20:00 21:34 23:31 Temp 98.1 97.6 98.1 97.6 Pulse 79 82 Resp 18 17 18 B/P (MAP) 104/67 (79) 101/62 (75) Pulse Ox 98 98 99 O2 Delivery Room Air Room Air Room Air Room Air 04/12/19 04/12/19 04/12/19 04/12/19 00:37 01:07 03:06 04:07 Temp 97.7 97.7 Pulse 92 Resp 18 18 B/P (MAP) 90/35 (53) 101/54 (70) Pulse Ox 99 99 O2 Delivery Room Air Room Air 04/12/19 04/12/19 04/12/19 04/12/19 06:47 07:00 08:00 09:30 Temp 97.9 97.9 Pulse 79 Resp 18 B/P (MAP) 109/69 (82) Pulse Ox 99 100 100 O2 Delivery Room Air Room Air Room Air Room Air 04/12/19 04/12/19 10:43 11:01 Temp 98.5 98.5 Pulse 83 Resp 16 B/P (MAP) 102/70 (81) Pulse Ox 100 100 O2 Delivery Room Air Room Air Intake and Output 04/11/19 04/11/19 04/12/19 14:59 22:59 06:59 Intake Total 0 ml 0 ml 0 ml Balance 0 ml 0 ml 0 ml ALEJANDRO PRINCE III DO April 12, 2019 12:08
--- NOTE | 2019-04-12 12:12 | PDOC ---
[facility] [facility] PROGRESS NOTE Chief Complaint Chief Complaint Abdominal pain with recent surgery Severe Crohn's with multiple surgeries, ovarian cyst, PID, appendectomy, cholecystectomy, hysterectomy, oophorectomy, ileostomy, breast augmentation, multiple stoma revisions. History of Present Illness History of Present Illness Patient seen and examined She had a cystoscopy this morning results pending Discussed with RN Vitals Vitals Vital Signs Date Time Temp Pulse Resp B/P (MAP) Pulse Ox O2 Delivery O2 Flow Rate FiO2 04/12/19 11:01 98.5 83 16 102/70 (81) 100 Room Air 98.5 Physical Exam General: Alert, Oriented X3 Heart: Regular rate, Normal S1, Normal S2 Lungs: Clear, Wheezing, Other Abdomen: Other (ostomy functioning tender) Extremities: No clubbing, No cyanosis Skin: No rashes, No breakdown Labs Labs: Laboratory Tests Test 04/12/19 06:50 Urine Collection Type Unknown Urine Color Yellow Urine Clarity Clear Urine pH 5.0 Urine Specific [place] 1.015 Urine Protein Negative mg/dL (NEG-TRACE) Urine Glucose (UA) Negative mg/dL (NEG) Urine Ketones (Stick) Negative mg/dL (NEG) Urine Blood Trace (NEG) Urine Nitrite Negative (NEG) Urine Bilirubin Negative (NEG) Urine Urobilinogen Dipstick 0.2 mg/dL (0.2 mg/dL) Urine Leukocyte Esterase Small (NEG) Urine RBC Occ /HPF (0-2) Urine WBC 5-10 /HPF (0-4) Urine Squamous Epithelial Cells Mod /LPF Urine Bacteria Few /HPF (0-FEW) Urine Mucus Mod /LPF Urine Yeast Present /HPF Review of Systems Review of Systems Complains of abdominal pain Assessment and Plan Assessmemt and Plan Problems Medical Problems: (1) Abdominal pain Status: Acute (2) Anemia Status: Acute (3) Crohns disease Status: Acute (4) Hypokalemia Status: Acute (5) Sepsis Status: Acute Surgical Problems:A Assessment Abdominal pain with recent surgery Severe Crohn's with multiple surgeries, ovarian cyst, PID, appendectomy, cholecystectomy, hysterectomy, oophorectomy, ileostomy, breast augmentation, multiple stoma revisions. Post-operative state Plan Wound care IV pain meds IV Zofran Await cystoscopy report Hope to advance diet if possible DVT prophylaxis Full code Frequent labs Comment Review of Relevant I have reviewed the following items kathy (where applicable) has been applied. Labs Laboratory Tests Test 04/10/19 22:05 04/10/19 22:35 04/11/19 01:55 04/12/19 06:50 Urine Collection Type Unknown Unknown Urine Color [place] Yellow Urine Clarity Cloudy Clear Urine pH 5.0 Urine Specific [place] 1.025 1.015 Urine Protein mg/dL (NEG-TRACE) Negative mg/dL (NEG-TRACE) Urine Glucose (UA) mg/dL (NEG) Negative mg/dL (NEG) Urine Ketones (Stick) mg/dL (NEG) Negative mg/dL (NEG) Urine Blood (NEG) Trace (NEG) Urine Nitrite (NEG) Negative (NEG) Urine Bilirubin (NEG) Negative (NEG) Urine Urobilinogen Dipstick mg/dL (0.2 mg/dL) 0.2 mg/dL (0.2 mg/dL) Urine Leukocyte Esterase (NEG) Small (NEG) Urine RBC 0 /HPF (0-2) Occ /HPF (0-2) Urine WBC 1-4 /HPF (0-4) 5-10 /HPF (0-4) Urine Squamous Epithelial Cells Few /LPF Mod /LPF Urine Amorphous Sediment Present /HPF Urine Bacteria 0 /HPF (0-FEW) Few /HPF (0-FEW) Urine Mucus Mod /LPF Mod /LPF Urine Yeast Present /HPF Present /HPF Urine Opiates Screen Pos (NEG) Urine Methadone Screen Neg (NEG) Urine Barbiturates Neg (NEG) Urine Phencyclidine Screen Neg (NEG) Urine Amphetamine/Methamphetamine Neg (NEG) Urine Benzodiazepines Screen Pos (NEG) Urine Cocaine Screen Neg (NEG) Urine Cannabinoids Screen Neg (NEG) Urine Ethyl Alcohol Neg (NEG) White Blood Count 13.0 x10^3/uL (4.0-11.0) Red Blood Count 3.82 x10^6/uL (3.50-5.40) Hemoglobin 11.2 g/dL (12.0-15.5) Hematocrit 34.2 % (36.0-47.0) Mean Corpuscular Volume 89 fL (79-100) Mean Corpuscular Hemoglobin 29 pg (25-35) Mean Corpuscular Hemoglobin Concent 33 g/dL (31-37) Red Cell Distribution Width 13.3 % (11.5-14.5) Platelet Count 323 x10^3/uL (140-400) Neutrophils (%) (Auto) 74 % (31-73) Lymphocytes (%) (Auto) 17 % (24-48) Monocytes (%) (Auto) 8 % (0-9) Eosinophils (%) (Auto) 1 % (0-3) Basophils (%) (Auto) 0 % (0-3) Neutrophils # (Auto) 9.6 x10^3uL (1.8-7.7) Lymphocytes # (Auto) 2.2 x10^3/uL (1.0-4.8) Monocytes # (Auto) 1.0 x10^3/uL (0.0-1.1) Eosinophils # (Auto) 0.2 x10^3/uL (0.0-0.7) Basophils # (Auto) 0.1 x10^3/uL (0.0-0.2) Prothrombin Time 14.1 SEC (11.7-14.0) Prothromb Time International Ratio 1.1 (0.8-1.1) Sodium Level 143 mmol/L (136-145) Potassium Level 3.0 mmol/L (3.5-5.1) Chloride Level 102 mmol/L (98-107) Carbon Dioxide Level 31 mmol/L (21-32) Anion Gap 10 (6-14) Blood Urea Nitrogen 11 mg/dL (7-20) Creatinine 1.1 mg/dL (0.6-1.0) Estimated GFR (Cockcroft-Gault) 55.3 BUN/Creatinine Ratio 10 (6-20) Glucose Level 117 mg/dL (70-99) Lactic Acid Level 2.4 mmol/L (0.4-2.0) 1.0 mmol/L (0.4-2.0) Calcium Level 9.0 mg/dL (8.5-10.1) Total Bilirubin 0.3 mg/dL (0.2-1.0) Aspartate Amino Transf (AST/SGOT) 21 U/L (15-37) Alanine Aminotransferase (ALT/SGPT) 30 U/L (14-59) Alkaline Phosphatase 105 U/L (46-116) Total Protein 6.8 g/dL (6.4-8.2) Albumin 3.2 g/dL (3.4-5.0) Albumin/Globulin Ratio 0.9 (1.0-1.7) Lipase 139 U/L (73-393) Laboratory Tests Test 04/12/19 06:50 Urine Collection Type Unknown Urine Color Yellow Urine Clarity Clear Urine pH 5.0 Urine Specific [place] 1.015 Urine Protein Negative mg/dL (NEG-TRACE) Urine Glucose (UA) Negative mg/dL (NEG) Urine Ketones (Stick) Negative mg/dL (NEG) Urine Blood Trace (NEG) Urine Nitrite Negative (NEG) Urine Bilirubin Negative (NEG) Urine Urobilinogen Dipstick 0.2 mg/dL (0.2 mg/dL) Urine Leukocyte Esterase Small (NEG) Urine RBC Occ /HPF (0-2) Urine WBC 5-10 /HPF (0-4) Urine Squamous Epithelial Cells Mod /LPF Urine Bacteria Few /HPF (0-FEW) Urine Mucus Mod /LPF Urine Yeast Present /HPF Medications Current Medications Sodium Chloride 1,000 ml @ 1,000 mls/hr Q1H IV Last administered on 04/10/19at 23:07; Start 04/10/19 at 23:00; Stop 04/10/19 at 23:59; Status DC Ondansetron HCl (Zofran) 4 mg 1X ONCE IV Last administered on 04/10/19at 23:07; Start 04/10/19 at 23:00; Stop 04/10/19 at 23:01; Status DC Hydromorphone HCl (Dilaudid) 1 mg 1X ONCE IV Last administered on 04/10/19at 23:07; Start 04/10/19 at 23:00; Stop 04/10/19 at 23:01; Status DC Prochlorperazine Edisylate (Compazine) 10 mg 1X ONCE IV ; Start 04/10/19 at 23:45; Stop 04/10/19 at 23:46; Status DC Diphenhydramine HCl (Benadryl) 50 mg 1X ONCE IVP Last administered on 04/11/19at 00:02; Start 04/10/19 at 23:55; Stop 04/10/19 at 23:56; Status DC Ceftriaxone Sodium (Rocephin) 1 gm 1X ONCE IVP Last administered on 04/11/19at 00:44; Start 04/11/19 at 00:15; Stop 04/11/19 at 00:16; Status DC Potassium Chloride/Water 100 ml @ 100 mls/hr Q1H IV Last administered on 04/11/19 02:47; Start 04/11/19 at 00:30; Stop 04/11/19 at 02:29; Status DC Sodium Chloride 1,000 ml @ 1,000 mls/hr 1X ONCE IV Last administered on 04/11/19 00:44; Start 04/11/19 at 00:15; Stop 04/11/19 at 01:14; Status DC Ondansetron HCl (Zofran) 4 mg PRN Q8HRS PRN IV NAUSEA/VOMITING Last administered on 04/11/19 03:57; Start 04/11/19 at 00:30; Stop 04/11/19 at 03:58; Status DC Sodium Chloride 1,000 ml @ 150 mls/hr Q6H40M IV Last administered on 04/11/19 18:29; Start 04/11/19 at 00:30; Stop 04/12/19 at 00:29; Status DC Hydromorphone HCl (Dilaudid) 1 mg PRN Q2HR PRN IV PAIN Last administered on 04/11/19 03:49; Start 04/11/19 at 00:30; Stop 04/11/19 at 03:49; Status DC Hydromorphone HCl (Dilaudid) 0.4 mg PRN Q3HRS PRN IVP PAIN Last administered on 04/11/19 11:42; Start 04/11/19 at 06:15; Stop 04/11/19 at 13:30; Status DC Ondansetron HCl (Zofran) 4 mg PRN Q6HRS PRN IV NAUSEA/VOMITING Last administered on 04/12/19 11:08; Start 04/11/19 at 06:15 Hydrocortisone (Cortaid) 1 hussain BID TP Last administered on 04/12/19 09:30; Start 04/11/19 at 10:00 Hydromorphone HCl (Dilaudid) 1 mg PRN Q3HRS PRN IV PAIN Last administered on 04/12/19 09:30; Start 04/11/19 at 13:30 Diphenhydramine HCl (Benadryl) 50 mg PRN Q6HRS PRN IVP ITCHING Last administered on 04/12/19 06:46; Start 04/11/19 at 18:00 Diatrizoate Meglumine (Cystografin Urethral) 300 ml 1X ONCE BLADIN ; Start 04/12/19 at 08:15; Stop 04/12/19 at 08:16; Status DC Active Scripts Active Reported [dilaudid liquid] 1.5 Mg PO PRN Q8HRS PRN [vitamin B12 inject.] MONTHLY Vitamin D3 (Cholecalciferol (Vitamin D3)) 5,000 Unit Tablet 5,000 Unit PO WEEKLY Tablet (Pnv Cmb#95/Ferrous Fumarate/Fa) 1 Each Tablet 1 Tab PO DAILY Benadryl (Diphenhydramine Hcl) 25 Mg Capsule 25 Mg PO PRN Q4-6HRS PRN Zofran Odt (Ondansetron) 4 Mg Tab.rapdis 4 Mg PO BID PRN Biotin 10,000 Mcg Tab.rapdis 10,000 Mcg PO DAILY Pantoprazole Sodium 40 Mg Tablet.dr 40 Mg PO DAILY Clonazepam 1 Mg Tablet 1 Tab PO PRN BID PRN Vitals/I & O Vital Sign - Last 24 Hours 04/11/19 04/11/19 04/11/19 04/11/19 12:29 15:00 15:21 18:24 Temp 98.0 98.0 Pulse 90 Resp 18 B/P (MAP) 110/71 (84) Pulse Ox 98 98 98 98 O2 Delivery Room Air Room Air Room Air Room Air 04/11/19 04/11/19 04/11/19 04/11/19 19:06 20:00 21:34 23:31 Temp 98.1 97.6 98.1 97.6 Pulse 79 82 Resp 18 17 18 B/P (MAP) 104/67 (79) 101/62 (75) Pulse Ox 98 98 99 O2 Delivery Room Air Room Air Room Air Room Air 04/12/19 04/12/19 04/12/19 04/12/19 00:37 01:07 03:06 04:07 Temp 97.7 97.7 Pulse 92 Resp 18 18 B/P (MAP) 90/35 (53) 101/54 (70) Pulse Ox 99 99 O2 Delivery Room Air Room Air 04/12/19 04/12/19 04/12/19 04/12/19 06:47 07:00 08:00 09:30 Temp 97.9 97.9 Pulse 79 Resp 18 B/P (MAP) 109/69 (82) Pulse Ox 99 100 100 O2 Delivery Room Air Room Air Room Air Room Air 04/12/19 04/12/19 10:43 11:01 Temp 98.5 98.5 Pulse 83 Resp 16 B/P (MAP) 102/70 (81) Pulse Ox 100 100 O2 Delivery Room Air Room Air Intake and Output 04/11/19 04/11/19 04/12/19 14:59 22:59 06:59 Intake Total 0 ml 0 ml 0 ml Balance 0 ml 0 ml 0 ml ALEJANDRO PRINCE III DO April 12, 2019 12:12
--- NOTE | 2019-04-12 19:52 | PDOC ---
PROGRESS NOTE SUBJECTIVE: ROS: ROS: RESPIRATORY: Shortness of breath denies. UROLOGY: Denies blood in urine. HPI: Still having bladder pain with full bladder / voiding. She reports that urine is yellow. Cystogram reviewed - normal. Problems: Problems Medical Problems: (1) Abdominal pain Status: Acute (2) Anemia Status: Acute (3) Crohns disease Status: Acute (4) Hypokalemia Status: Acute (5) Sepsis Status: Acute Surgical Problems: (1) Post-operative state Status: Acute OBJECTIVE: Vital Signs: Vital Signs Date Time Temp Pulse Resp B/P (MAP) Pulse Ox O2 Delivery O2 Flow Rate FiO2 04/12/19 19:13 100 Room Air 04/12/19 18:43 100 Room Air 04/12/19 15:43 100 Room Air 04/12/19 15:00 98.3 81 18 98/65 (76) 99 Room Air 98.3 04/12/19 12:31 100 Room Air 04/12/19 11:01 98.5 83 16 102/70 (81) 100 Room Air 98.5 04/12/19 09:30 100 Room Air 04/12/19 08:00 Room Air 04/12/19 07:00 97.9 79 18 109/69 (82) 100 Room Air 97.9 04/12/19 06:47 99 Room Air 04/12/19 04:07 101/54 (70) 04/12/19 03:06 97.7 92 18 90/35 (53) 99 Room Air 97.7 04/12/19 01:07 18 04/12/19 00:37 99 Room Air 04/11/19 23:31 97.6 82 18 101/62 (75) 99 Room Air 97.6 04/11/19 21:34 17 98 Room Air 04/11/19 20:00 Room Air I & O Intake and Output 04/12/19 07:00 Intake Total 0 ml Balance 0 ml Intake Oral 0 ml PHYSICAL EXAM: Physical Exam: General: Pleasant, no acute distress, well groomed Respiratory: unlabored breathing Psych: normal mood, affect. Alert and oriented x 3. LABS: Laboratory Tests Test 04/10/19 22:05 04/10/19 22:35 04/11/19 01:55 04/12/19 06:50 Urine Collection Type Unknown Unknown Urine Color [place] Yellow Urine Clarity Cloudy Clear Urine pH 5.0 Urine Specific [place] 1.025 1.015 Urine Protein mg/dL (NEG-TRACE) Negative mg/dL (NEG-TRACE) Urine Glucose (UA) mg/dL (NEG) Negative mg/dL (NEG) Urine Ketones (Stick) mg/dL (NEG) Negative mg/dL (NEG) Urine Blood (NEG) Trace (NEG) Urine Nitrite (NEG) Negative (NEG) Urine Bilirubin (NEG) Negative (NEG) Urine Urobilinogen Dipstick mg/dL (0.2 mg/dL) 0.2 mg/dL (0.2 mg/dL) Urine Leukocyte Esterase (NEG) Small (NEG) Urine RBC 0 /HPF (0-2) Occ /HPF (0-2) Urine WBC 1-4 /HPF (0-4) 5-10 /HPF (0-4) Urine Squamous Epithelial Cells Few /LPF Mod /LPF Urine Amorphous Sediment Present /HPF Urine Bacteria 0 /HPF (0-FEW) Few /HPF (0-FEW) Urine Mucus Mod /LPF Mod /LPF Urine Yeast Present /HPF Present /HPF Urine Opiates Screen Pos (NEG) Urine Methadone Screen Neg (NEG) Urine Barbiturates Neg (NEG) Urine Phencyclidine Screen Neg (NEG) Urine Amphetamine/Methamphetamine Neg (NEG) Urine Benzodiazepines Screen Pos (NEG) Urine Cocaine Screen Neg (NEG) Urine Cannabinoids Screen Neg (NEG) Urine Ethyl Alcohol Neg (NEG) White Blood Count 13.0 x10^3/uL (4.0-11.0) Red Blood Count 3.82 x10^6/uL (3.50-5.40) Hemoglobin 11.2 g/dL (12.0-15.5) Hematocrit 34.2 % (36.0-47.0) Mean Corpuscular Volume 89 fL (79-100) Mean Corpuscular Hemoglobin 29 pg (25-35) Mean Corpuscular Hemoglobin Concent 33 g/dL (31-37) Red Cell Distribution Width 13.3 % (11.5-14.5) Platelet Count 323 x10^3/uL (140-400) Neutrophils (%) (Auto) 74 % (31-73) Lymphocytes (%) (Auto) 17 % (24-48) Monocytes (%) (Auto) 8 % (0-9) Eosinophils (%) (Auto) 1 % (0-3) Basophils (%) (Auto) 0 % (0-3) Neutrophils # (Auto) 9.6 x10^3uL (1.8-7.7) Lymphocytes # (Auto) 2.2 x10^3/uL (1.0-4.8) Monocytes # (Auto) 1.0 x10^3/uL (0.0-1.1) Eosinophils # (Auto) 0.2 x10^3/uL (0.0-0.7) Basophils # (Auto) 0.1 x10^3/uL (0.0-0.2) Prothrombin Time 14.1 SEC (11.7-14.0) Prothromb Time International Ratio 1.1 (0.8-1.1) Sodium Level 143 mmol/L (136-145) Potassium Level 3.0 mmol/L (3.5-5.1) Chloride Level 102 mmol/L (98-107) Carbon Dioxide Level 31 mmol/L (21-32) Anion Gap 10 (6-14) Blood Urea Nitrogen 11 mg/dL (7-20) Creatinine 1.1 mg/dL (0.6-1.0) Estimated GFR (Cockcroft-Gault) 55.3 BUN/Creatinine Ratio 10 (6-20) Glucose Level 117 mg/dL (70-99) Lactic Acid Level 2.4 mmol/L (0.4-2.0) 1.0 mmol/L (0.4-2.0) Calcium Level 9.0 mg/dL (8.5-10.1) Total Bilirubin 0.3 mg/dL (0.2-1.0) Aspartate Amino Transf (AST/SGOT) 21 U/L (15-37) Alanine Aminotransferase (ALT/SGPT) 30 U/L (14-59) Alkaline Phosphatase 105 U/L (46-116) Total Protein 6.8 g/dL (6.4-8.2) Albumin 3.2 g/dL (3.4-5.0) Albumin/Globulin Ratio 0.9 (1.0-1.7) Lipase 139 U/L (73-393) MEDICATIONS: Current Medications Medications (Trade) Dose Ordered Sig/[place] Start Time Stop Time Status Last Admin Dose Admin Ceftriaxone Sodium (Rocephin) 1 gm 1X ONCE 04/11/19 00:15 04/11/19 00:16 DC 04/11/19 00:44 1 GM Diatrizoate Meglumine (Cystografin Urethral) 300 ml 1X ONCE 04/12/19 08:15 04/12/19 08:16 DC 04/12/19 08:15 300 ML Diphenhydramine HCl (Benadryl) 50 mg PRN Q6HRS PRN 04/11/19 18:00 04/12/19 12:42 50 MG Hydrocortisone (Cortaid) 1 hussain BID 04/11/19 10:00 04/12/19 09:30 1 HUSSAIN Hydromorphone HCl (Dilaudid) 1 mg PRN Q3HRS PRN 04/11/19 13:30 04/12/19 18:43 1 MG Ondansetron HCl (Zofran) 4 mg PRN Q6HRS PRN 04/11/19 06:15 04/12/19 11:08 4 MG Potassium Chloride/Water 100 ml @ 100 mls/hr Q1H 04/11/19 00:30 04/11/19 02:29 DC 04/11/19 02:47 100 MLS/HR Prochlorperazine Edisylate (Compazine) 10 mg 1X ONCE 04/10/19 23:45 04/10/19 23:46 DC Sodium Chloride 1,000 ml @ 150 mls/hr Q6H40M 04/11/19 00:30 04/12/19 00:29 DC 04/11/19 18:29 150 MLS/HR ASSESSMENT & PLAN Repeat UA again without microscopic blood. Unclear if she has truely been having gross hematuria, would not expect UA on 04/10 and 04/12 to not even show microscopic hematuria. Patient should followup with her urogynecologist (Dr. Talley) after followup regarding her chronic bladder pain. I do not have anything to add at this time. No further urology recommendations. Call with questions. Problem List: Problems Medical Problems: (1) Abdominal pain Status: Acute (2) Anemia Status: Acute (3) Crohns disease Status: Acute (4) Hypokalemia Status: Acute (5) Sepsis Status: Acute Surgical Problems: (1) Post-operative state Status: Acute BINH ARRINGTON MD April 12, 2019 19:52
[2019-04-13] MEDS: diphenhydrAMINE 50 MG/ML VIAL IVP PRN ×4 (00:36→19:48)
[2019-04-13] MEDS: HYDROmorphone 2 MG/ML VIAL IV PRN ×8 (00:36→22:52)
[2019-04-13 03:36] VITALS: BP 100/61
[2019-04-13 05:07] LABS: BASO % 1 % (0-3); EOS # 0.4 x10^3/uL (0.0-0.7); EOS % 8 % (0-3); HEMATOCRIT 26.2 % (36.0-47.0); HEMOGLOBIN 8.6 g/dL (12.0-15.5); LYMPH # 1.2 x10^3/uL (1.0-4.8); LYMPH % 23 % (24-48); MEAN CORPUSCULAR HEMOGLOBIN 30 pg (25-35); MEAN CORPUSCULAR HGB CONC 33 g/dL (31-37); MEAN CORPUSCULAR VOLUME 91 fL (79-100); MONO # 0.4 x10^3/uL (0.0-1.1); MONO % 7 % (0-9); NEUT # 3.1 x10^3uL (1.8-7.7); NEUT % 61 % (31-73); PLATELET COUNT 222 x10^3/uL (140-400); RED BLOOD COUNT 2.89 x10^6/uL (3.50-5.40); RED CELL DISTRIBUTION WIDTH 13.1 % (11.5-14.5); WHITE BLOOD COUNT 5.1 x10^3/uL (4.0-11.0)
[2019-04-13 05:44] LABS: ALBUMIN 2.1 g/dL (3.4-5.0); ALBUMIN/GLOBULIN RATIO 0.9 (1.0-1.7); CALCIUM 6.8 mg/dL (8.5-10.1); CREATININE 0.8 mg/dL (0.6-1.0); GFR 79.9; TOTAL BILIRUBIN 0.2 mg/dL (0.2-1.0); TOTAL PROTEIN 4.5 g/dL (6.4-8.2)
[2019-04-13 07:00] VITALS: BP 106/61
[2019-04-13] MEDS: ONDANSETRON PF 4 MG/2 ML VIAL. IV PRN ×2 (07:18→22:53)
[2019-04-13] MEDS: HYDROCORTISONE 1% TOPICAL CREAM 30GM TUBE. TP SCH ×2 (09:00→21:54)
--- NOTE | 2019-04-13 10:51 | PDOC ---
[facility] PROGRESS NOTE Chief Complaint Chief Complaint Abdominal pain with recent surgery Severe Crohn's with multiple surgeries, ovarian cyst, PID, appendectomy, cholecystectomy, hysterectomy, oophorectomy, ileostomy, breast augmentation, multiple stoma revisions. History of Present Illness History of Present Illness Patient seen and examined She seems very edematous today Discussed with RN Labs reviewed Vitals Vitals Vital Signs Date Time Temp Pulse Resp B/P (MAP) Pulse Ox O2 Delivery O2 Flow Rate FiO2 04/13/19 10:21 97 Room Air 04/13/19 07:00 98.1 79 20 106/61 (76) 98.1 Physical Exam General: Alert, Oriented X3, Other (edematous) Heart: Regular rate, Normal S1, Normal S2 Lungs: Clear, Wheezing, Other Abdomen: Other (ostomy functioning tender) Extremities: No clubbing, No cyanosis Skin: No rashes, No breakdown Labs Labs: Laboratory Tests Test 04/13/19 04:30 White Blood Count 5.1 x10^3/uL (4.0-11.0) Red Blood Count 2.89 x10^6/uL (3.50-5.40) Hemoglobin 8.6 g/dL (12.0-15.5) Hematocrit 26.2 % (36.0-47.0) Mean Corpuscular Volume 91 fL (79-100) Mean Corpuscular Hemoglobin 30 pg (25-35) Mean Corpuscular Hemoglobin Concent 33 g/dL (31-37) Red Cell Distribution Width 13.1 % (11.5-14.5) Platelet Count 222 x10^3/uL (140-400) Neutrophils (%) (Auto) 61 % (31-73) Lymphocytes (%) (Auto) 23 % (24-48) Monocytes (%) (Auto) 7 % (0-9) Eosinophils (%) (Auto) 8 % (0-3) Basophils (%) (Auto) 1 % (0-3) Neutrophils # (Auto) 3.1 x10^3uL (1.8-7.7) Lymphocytes # (Auto) 1.2 x10^3/uL (1.0-4.8) Monocytes # (Auto) 0.4 x10^3/uL (0.0-1.1) Eosinophils # (Auto) 0.4 x10^3/uL (0.0-0.7) Basophils # (Auto) 0.0 x10^3/uL (0.0-0.2) Sodium Level 147 mmol/L (136-145) Potassium Level 3.0 mmol/L (3.5-5.1) Chloride Level 112 mmol/L (98-107) Carbon Dioxide Level 25 mmol/L (21-32) Anion Gap 10 (6-14) Blood Urea Nitrogen 4 mg/dL (7-20) Creatinine 0.8 mg/dL (0.6-1.0) Estimated GFR (Cockcroft-Gault) 79.9 BUN/Creatinine Ratio 5 (6-20) Glucose Level 103 mg/dL (70-99) Calcium Level 6.8 mg/dL (8.5-10.1) Total Bilirubin 0.2 mg/dL (0.2-1.0) Aspartate Amino Transf (AST/SGOT) 22 U/L (15-37) Alanine Aminotransferase (ALT/SGPT) 31 U/L (14-59) Alkaline Phosphatase 73 U/L (46-116) Total Protein 4.5 g/dL (6.4-8.2) Albumin 2.1 g/dL (3.4-5.0) Albumin/Globulin Ratio 0.9 (1.0-1.7) Review of Systems Review of Systems Complains of edema complains of weakness Assessment and Plan Assessmemt and Plan Problems Medical Problems: (1) Abdominal pain Status: Acute (2) Anemia Status: Acute (3) Crohns disease Status: Acute (4) Hypokalemia Status: Acute (5) Sepsis Status: Acute Surgical Problems: (1) Post-operative state Status: Acute Abdominal pain with recent surgery Severe Crohn's with multiple surgeries, ovarian cyst, PID, appendectomy, cholecystectomy, hysterectomy, oophorectomy, ileostomy, breast augmentation, multiple stoma revisions. Plan I added IV Lasix 40 daily Continue other treatments DVT prophylaxis Home meds Await further subspecialist input Full code Recheck labs Comment Review of Relevant I have reviewed the following items kathy (where applicable) has been applied. Labs Laboratory Tests Test 04/12/19 06:50 04/13/19 04:30 Urine Collection Type Unknown Urine Color Yellow Urine Clarity Clear Urine pH 5.0 Urine Specific Jbphh 1.015 Urine Protein Negative mg/dL (NEG-TRACE) Urine Glucose (UA) Negative mg/dL (NEG) Urine Ketones (Stick) Negative mg/dL (NEG) Urine Blood Trace (NEG) Urine Nitrite Negative (NEG) Urine Bilirubin Negative (NEG) Urine Urobilinogen Dipstick 0.2 mg/dL (0.2 mg/dL) Urine Leukocyte Esterase Small (NEG) Urine RBC Occ /HPF (0-2) Urine WBC 5-10 /HPF (0-4) Urine Squamous Epithelial Cells Mod /LPF Urine Bacteria Few /HPF (0-FEW) Urine Mucus Mod /LPF Urine Yeast Present /HPF White Blood Count 5.1 x10^3/uL (4.0-11.0) Red Blood Count 2.89 x10^6/uL (3.50-5.40) Hemoglobin 8.6 g/dL (12.0-15.5) Hematocrit 26.2 % (36.0-47.0) Mean Corpuscular Volume 91 fL (79-100) Mean Corpuscular Hemoglobin 30 pg (25-35) Mean Corpuscular Hemoglobin Concent 33 g/dL (31-37) Red Cell Distribution Width 13.1 % (11.5-14.5) Platelet Count 222 x10^3/uL (140-400) Neutrophils (%) (Auto) 61 % (31-73) Lymphocytes (%) (Auto) 23 % (24-48) Monocytes (%) (Auto) 7 % (0-9) Eosinophils (%) (Auto) 8 % (0-3) Basophils (%) (Auto) 1 % (0-3) Neutrophils # (Auto) 3.1 x10^3uL (1.8-7.7) Lymphocytes # (Auto) 1.2 x10^3/uL (1.0-4.8) Monocytes # (Auto) 0.4 x10^3/uL (0.0-1.1) Eosinophils # (Auto) 0.4 x10^3/uL (0.0-0.7) Basophils # (Auto) 0.0 x10^3/uL (0.0-0.2) Sodium Level 147 mmol/L (136-145) Potassium Level 3.0 mmol/L (3.5-5.1) Chloride Level 112 mmol/L (98-107) Carbon Dioxide Level 25 mmol/L (21-32) Anion Gap 10 (6-14) Blood Urea Nitrogen 4 mg/dL (7-20) Creatinine 0.8 mg/dL (0.6-1.0) Estimated GFR (Cockcroft-Gault) 79.9 BUN/Creatinine Ratio 5 (6-20) Glucose Level 103 mg/dL (70-99) Calcium Level 6.8 mg/dL (8.5-10.1) Total Bilirubin 0.2 mg/dL (0.2-1.0) Aspartate Amino Transf (AST/SGOT) 22 U/L (15-37) Alanine Aminotransferase (ALT/SGPT) 31 U/L (14-59) Alkaline Phosphatase 73 U/L (46-116) Total Protein 4.5 g/dL (6.4-8.2) Albumin 2.1 g/dL (3.4-5.0) Albumin/Globulin Ratio 0.9 (1.0-1.7) Laboratory Tests Test 04/13/19 04:30 White Blood Count 5.1 x10^3/uL (4.0-11.0) Red Blood Count 2.89 x10^6/uL (3.50-5.40) Hemoglobin 8.6 g/dL (12.0-15.5) Hematocrit 26.2 % (36.0-47.0) Mean Corpuscular Volume 91 fL (79-100) Mean Corpuscular Hemoglobin 30 pg (25-35) Mean Corpuscular Hemoglobin Concent 33 g/dL (31-37) Red Cell Distribution Width 13.1 % (11.5-14.5) Platelet Count 222 x10^3/uL (140-400) Neutrophils (%) (Auto) 61 % (31-73) Lymphocytes (%) (Auto) 23 % (24-48) Monocytes (%) (Auto) 7 % (0-9) Eosinophils (%) (Auto) 8 % (0-3) Basophils (%) (Auto) 1 % (0-3) Neutrophils # (Auto) 3.1 x10^3uL (1.8-7.7) Lymphocytes # (Auto) 1.2 x10^3/uL (1.0-4.8) Monocytes # (Auto) 0.4 x10^3/uL (0.0-1.1) Eosinophils # (Auto) 0.4 x10^3/uL (0.0-0.7) Basophils # (Auto) 0.0 x10^3/uL (0.0-0.2) Sodium Level 147 mmol/L (136-145) Potassium Level 3.0 mmol/L (3.5-5.1) Chloride Level 112 mmol/L (98-107) Carbon Dioxide Level 25 mmol/L (21-32) Anion Gap 10 (6-14) Blood Urea Nitrogen 4 mg/dL (7-20) Creatinine 0.8 mg/dL (0.6-1.0) Estimated GFR (Cockcroft-Gault) 79.9 BUN/Creatinine Ratio 5 (6-20) Glucose Level 103 mg/dL (70-99) Calcium Level 6.8 mg/dL (8.5-10.1) Total Bilirubin 0.2 mg/dL (0.2-1.0) Aspartate Amino Transf (AST/SGOT) 22 U/L (15-37) Alanine Aminotransferase (ALT/SGPT) 31 U/L (14-59) Alkaline Phosphatase 73 U/L (46-116) Total Protein 4.5 g/dL (6.4-8.2) Albumin 2.1 g/dL (3.4-5.0) Albumin/Globulin Ratio 0.9 (1.0-1.7) Medications Current Medications Sodium Chloride 1,000 ml @ 1,000 mls/hr Q1H IV Last administered on 04/10/19at 23:07; Start 04/10/19 at 23:00; Stop 04/10/19 at 23:59; Status DC Ondansetron HCl (Zofran) 4 mg 1X ONCE IV Last administered on 04/10/19at 23:07; Start 04/10/19 at 23:00; Stop 04/10/19 at 23:01; Status DC Hydromorphone HCl (Dilaudid) 1 mg 1X ONCE IV Last administered on 04/10/19at 23:07; Start 04/10/19 at 23:00; Stop 04/10/19 at 23:01; Status DC Prochlorperazine Edisylate (Compazine) 10 mg 1X ONCE IV ; Start 04/10/19 at 23:45; Stop 04/10/19 at 23:46; Status DC Diphenhydramine HCl (Benadryl) 50 mg 1X ONCE IVP Last administered on 04/11/19 00:02; Start 04/10/19 at 23:55; Stop 04/10/19 at 23:56; Status DC Ceftriaxone Sodium (Rocephin) 1 gm 1X ONCE IVP Last administered on 04/11/19 00:44; Start 04/11/19 at 00:15; Stop 04/11/19 at 00:16; Status DC Potassium Chloride/Water 100 ml @ 100 mls/hr Q1H IV Last administered on 04/11/19 02:47; Start 04/11/19 at 00:30; Stop 04/11/19 at 02:29; Status DC Sodium Chloride 1,000 ml @ 1,000 mls/hr 1X ONCE IV Last administered on 04/11/19 00:44; Start 04/11/19 at 00:15; Stop 04/11/19 at 01:14; Status DC Ondansetron HCl (Zofran) 4 mg PRN Q8HRS PRN IV NAUSEA/VOMITING Last administered on 04/11/19 03:57; Start 04/11/19 at 00:30; Stop 04/11/19 at 03:58; Status DC Sodium Chloride 1,000 ml @ 150 mls/hr Q6H40M IV Last administered on 04/11/19 18:29; Start 04/11/19 at 00:30; Stop 04/12/19 at 00:29; Status DC Hydromorphone HCl (Dilaudid) 1 mg PRN Q2HR PRN IV PAIN Last administered on 04/11/19 03:49; Start 04/11/19 at 00:30; Stop 04/11/19 at 03:49; Status DC Hydromorphone HCl (Dilaudid) 0.4 mg PRN Q3HRS PRN IVP PAIN Last administered on 04/11/19 11:42; Start 04/11/19 at 06:15; Stop 04/11/19 at 13:30; Status DC Ondansetron HCl (Zofran) 4 mg PRN Q6HRS PRN IV NAUSEA/VOMITING Last administered on 04/13/19at 07:18; Start 04/11/19 at 06:15 Hydrocortisone (Cortaid) 1 hussain BID TP Last administered on 04/13/19at 09:00; Start 04/11/19 at 10:00 Hydromorphone HCl (Dilaudid) 1 mg PRN Q3HRS PRN IV PAIN Last administered on 04/13/19at 10:21; Start 04/11/19 at 13:30 Diphenhydramine HCl (Benadryl) 50 mg PRN Q6HRS PRN IVP ITCHING Last administered on 04/13/19at 07:18; Start 04/11/19 at 18:00 Diatrizoate Meglumine (Cystografin Urethral) 300 ml 1X ONCE BLADIN Last administered on 04/12/19 08:15; Start 04/12/19 at 08:15; Stop 04/12/19 at 08:16; Status DC Active Scripts Active Reported [dilaudid liquid] 1.5 Mg PO PRN Q8HRS PRN [vitamin B12 inject.] MONTHLY Vitamin D3 (Cholecalciferol (Vitamin D3)) 5,000 Unit Tablet 5,000 Unit PO WEEKLY Tablet (Pnv Cmb#95/Ferrous Fumarate/Fa) 1 Each Tablet 1 Tab PO DAILY Benadryl (Diphenhydramine Hcl) 25 Mg Capsule 25 Mg PO PRN Q4-6HRS PRN Zofran Odt (Ondansetron) 4 Mg Tab.rapdis 4 Mg PO BID PRN Biotin 10,000 Mcg Tab.rapdis 10,000 Mcg PO DAILY Pantoprazole Sodium 40 Mg Tablet.dr 40 Mg PO DAILY Clonazepam 1 Mg Tablet 1 Tab PO PRN BID PRN Vitals/I & O Vital Sign - Last 24 Hours 04/12/19 04/12/19 04/12/19 04/12/19 11:01 12:31 15:00 15:43 Temp 98.5 98.3 98.5 98.3 Pulse 83 81 Resp 16 18 B/P (MAP) 102/70 (81) 98/65 (76) Pulse Ox 100 100 99 100 O2 Delivery Room Air Room Air Room Air Room Air 04/12/19 04/12/19 04/12/19 04/12/19 18:43 19:35 20:00 21:36 Temp 98.4 98.4 Pulse 67 Resp 16 18 B/P (MAP) 102/63 (76) Pulse Ox 100 96 96 O2 Delivery Room Air Room Air Room Air Room Air 04/12/19 04/13/19 04/13/19 04/13/19 23:38 00:36 03:36 04:03 Temp 97.6 97.8 97.6 97.8 Pulse 85 87 Resp 16 16 B/P (MAP) 108/76 (87) 100/61 (74) Pulse Ox 99 99 97 97 O2 Delivery Room Air Room Air Room Air Room Air 04/13/19 04/13/19 04/13/19 04/13/19 04:33 07:00 07:18 10:21 Temp 98.1 98.1 Pulse 79 Resp 20 B/P (MAP) 106/61 (76) Pulse Ox 97 98 97 97 O2 Delivery Room Air Room Air Room Air Room Air Intake and Output 04/12/19 04/12/19 04/13/19 15:00 23:00 07:00 Intake Total 0 ml 0 ml Output Total 400 ml 200 ml 500 ml Balance -400 ml -200 ml -500 ml ALEJANDRO PRINCE III DO Apr 13, 2019 10:51
[2019-04-13 11:00] VITALS: BP 97/58
[2019-04-13] MEDS: FUROSEMIDE 40 MG/4 ML VIAL. IVP SCH (12:52)
[2019-04-13 15:00] VITALS: BP 96/57
[2019-04-13] MEDS ORDERED: POTASSIUM CHLORIDE 20 MEQ TABLET.ER. PO ONE (17:00)
[2019-04-13] MEDS: POTASSIUM CHLORIDE 10MEQ 100 ML IV SCH ×4 (17:24→20:30)
[2019-04-13 20:10] VITALS: BP 111/77
--- NOTE | 2019-04-13 20:13 | NUR ---
Pt transfer at shift change, report given to Onelia JOHNSON. Pt with complaints of pain and nausea. Pt given dilaudid and benadryl before transfer. No further complaints at this time.
[2019-04-13 23:00] VITALS: BP 94/62
[2019-04-14] MEDS: HYDROmorphone 2 MG/ML VIAL IV PRN ×8 (02:05→23:21)
[2019-04-14] MEDS: diphenhydrAMINE 50 MG/ML VIAL IVP PRN ×4 (02:05→20:07)
[2019-04-14 03:00] VITALS: BP 96/63
[2019-04-14 07:00] VITALS: BP 102/65
[2019-04-14] MEDS: FUROSEMIDE 40 MG/4 ML VIAL. IVP SCH (08:12)
[2019-04-14] MEDS: HYDROCORTISONE 1% TOPICAL CREAM 30GM TUBE. TP SCH ×2 (08:14→20:20)
[2019-04-14 11:00] VITALS: BP 116/80
--- NOTE | 2019-04-14 13:52 | PDOC ---
PROGRESS NOTES Chief Complaint Chief Complaint Abdominal pain secondary to bladder spasms? Patient describing urinary retention at times, she refers having a compalicated anatomy not amenable for self cathing. Urology recommendations greatly appreciated, recommendation is to follow up with her urogynecologist Dr Geovany Talley, his office phone number is Severe Crohn's with multiple surgeries, ovarian cyst, PID, appendectomy, cholecystectomy, hysterectomy, oophorectomy, ileostomy, breast augmentation, multiple stoma revisions. Plan: monitor overnight, she will try to call in the am to schedule an appointment if her symptoms are better and we are able to establish a follow up plan she may be discharged in the am further recommendations based on clinical course. History of Present Illness History of Present Illness Patient seen and examined no new complaints Discussed with RN Labs reviewed Vitals Vitals Vital Signs Date Time Temp Pulse Resp B/P (MAP) Pulse Ox O2 Delivery O2 Flow Rate FiO2 04/14/19 11:00 97.5 16 16 116/80 (92) 96 Room Air 97.5 Physical Exam General: Alert, Oriented X3, Other (edematous) Heart: Regular rate, Normal S1, Normal S2 Lungs: Clear, Wheezing, Other Abdomen: Other (ostomy functioning tender) Extremities: No clubbing, No cyanosis Skin: No rashes, No breakdown Assessment and Plan Assessmemt and Plan Problems Medical Problems: (1) Abdominal pain Status: Acute (2) Anemia Status: Acute (3) Crohns disease Status: Acute (4) Hypokalemia Status: Acute (5) Sepsis Status: Acute Surgical Problems: (1) Post-operative state Status: Acute Comment Review of Relevant I have reviewed the following items kathy (where applicable) has been applied. Labs Laboratory Tests Test 04/13/19 04:30 White Blood Count 5.1 x10^3/uL (4.0-11.0) Red Blood Count 2.89 x10^6/uL (3.50-5.40) Hemoglobin 8.6 g/dL (12.0-15.5) Hematocrit 26.2 % (36.0-47.0) Mean Corpuscular Volume 91 fL (79-100) Mean Corpuscular Hemoglobin 30 pg (25-35) Mean Corpuscular Hemoglobin Concent 33 g/dL (31-37) Red Cell Distribution Width 13.1 % (11.5-14.5) Platelet Count 222 x10^3/uL (140-400) Neutrophils (%) (Auto) 61 % (31-73) Lymphocytes (%) (Auto) 23 % (24-48) Monocytes (%) (Auto) 7 % (0-9) Eosinophils (%) (Auto) 8 % (0-3) Basophils (%) (Auto) 1 % (0-3) Neutrophils # (Auto) 3.1 x10^3uL (1.8-7.7) Lymphocytes # (Auto) 1.2 x10^3/uL (1.0-4.8) Monocytes # (Auto) 0.4 x10^3/uL (0.0-1.1) Eosinophils # (Auto) 0.4 x10^3/uL (0.0-0.7) Basophils # (Auto) 0.0 x10^3/uL (0.0-0.2) Sodium Level 147 mmol/L (136-145) Potassium Level 3.0 mmol/L (3.5-5.1) Chloride Level 112 mmol/L (98-107) Carbon Dioxide Level 25 mmol/L (21-32) Anion Gap 10 (6-14) Blood Urea Nitrogen 4 mg/dL (7-20) Creatinine 0.8 mg/dL (0.6-1.0) Estimated GFR (Cockcroft-Gault) 79.9 BUN/Creatinine Ratio 5 (6-20) Glucose Level 103 mg/dL (70-99) Calcium Level 6.8 mg/dL (8.5-10.1) Total Bilirubin 0.2 mg/dL (0.2-1.0) Aspartate Amino Transf (AST/SGOT) 22 U/L (15-37) Alanine Aminotransferase (ALT/SGPT) 31 U/L (14-59) Alkaline Phosphatase 73 U/L (46-116) Total Protein 4.5 g/dL (6.4-8.2) Albumin 2.1 g/dL (3.4-5.0) Albumin/Globulin Ratio 0.9 (1.0-1.7) Medications Current Medications Sodium Chloride 1,000 ml @ 1,000 mls/hr Q1H IV Last administered on 04/10/19at 23:07; Start 04/10/19 at 23:00; Stop 04/10/19 at 23:59; Status DC Ondansetron HCl (Zofran) 4 mg 1X ONCE IV Last administered on 04/10/19at 23:07; Start 04/10/19 at 23:00; Stop 04/10/19 at 23:01; Status DC Hydromorphone HCl (Dilaudid) 1 mg 1X ONCE IV Last administered on 04/10/19at 23:07; Start 04/10/19 at 23:00; Stop 04/10/19 at 23:01; Status DC Prochlorperazine Edisylate (Compazine) 10 mg 1X ONCE IV ; Start 04/10/19 at 23:45; Stop 04/10/19 at 23:46; Status DC Diphenhydramine HCl (Benadryl) 50 mg 1X ONCE IVP Last administered on 04/11/19at 00:02; Start 04/10/19 at 23:55; Stop 04/10/19 at 23:56; Status DC Ceftriaxone Sodium (Rocephin) 1 gm 1X ONCE IVP Last administered on 04/11/19at 00:44; Start 04/11/19 at 00:15; Stop 04/11/19 at 00:16; Status DC Potassium Chloride/Water 100 ml @ 100 mls/hr Q1H IV Last administered on 04/11/19at 02:47; Start 04/11/19 at 00:30; Stop 04/11/19 at 02:29; Status DC Sodium Chloride 1,000 ml @ 1,000 mls/hr 1X ONCE IV Last administered on 04/11/19at 00:44; Start 04/11/19 at 00:15; Stop 04/11/19 at 01:14; Status DC Ondansetron HCl (Zofran) 4 mg PRN Q8HRS PRN IV NAUSEA/VOMITING Last administered on 04/11/19 03:57; Start 04/11/19 at 00:30; Stop 04/11/19 at 03:58; Status DC Sodium Chloride 1,000 ml @ 150 mls/hr Q6H40M IV Last administered on 04/11/19at 18:29; Start 04/11/19 at 00:30; Stop 04/12/19 at 00:29; Status DC Hydromorphone HCl (Dilaudid) 1 mg PRN Q2HR PRN IV PAIN Last administered on 04/11/19 03:49; Start 04/11/19 at 00:30; Stop 04/11/19 at 03:49; Status DC Hydromorphone HCl (Dilaudid) 0.4 mg PRN Q3HRS PRN IVP PAIN Last administered on 04/11/19at 11:42; Start 04/11/19 at 06:15; Stop 04/11/19 at 13:30; Status DC Ondansetron HCl (Zofran) 4 mg PRN Q6HRS PRN IV NAUSEA/VOMITING Last administered on 04/13/19 22:53; Start 04/11/19 at 06:15 Hydrocortisone (Cortaid) 1 hussain BID TP Last administered on 04/14/19 08:14; Start 04/11/19 at 10:00 Hydromorphone HCl (Dilaudid) 1 mg PRN Q3HRS PRN IV PAIN Last administered on 04/14/19 10:58; Start 04/11/19 at 13:30 Diphenhydramine HCl (Benadryl) 50 mg PRN Q6HRS PRN IVP ITCHING Last administered on 04/14/19 08:13; Start 04/11/19 at 18:00 Diatrizoate Meglumine (Cystografin Urethral) 300 ml 1X ONCE BLADIN Last administered on 04/12/19 08:15; Start 04/12/19 at 08:15; Stop 04/12/19 at 08:16; Status DC Furosemide (Lasix) 40 mg DAILY IVP Last administered on 04/14/19 08:12; Start 04/13/19 at 11:00 Potassium Chloride (Klor-Con) 40 meq 1X ONCE PO ; Start 04/13/19 at 17:00; Stop 04/13/19 at 17:09; Status DC Potassium Chloride/Water 100 ml @ 100 mls/hr Q1H IV Last administered on 04/13/19 20:30; Start 04/13/19 at 17:30; Stop 04/13/19 at 21:29; Status DC Active Scripts Active Reported [dilaudid liquid] 1.5 Mg PO PRN Q8HRS PRN [vitamin B12 inject.] MONTHLY Vitamin D3 (Cholecalciferol (Vitamin D3)) 5,000 Unit Tablet 5,000 Unit PO WEEKLY Tablet (Pnv Cmb#95/Ferrous Fumarate/Fa) 1 Each Tablet 1 Tab PO DAILY Benadryl (Diphenhydramine Hcl) 25 Mg Capsule 25 Mg PO PRN Q4-6HRS PRN Zofran Odt (Ondansetron) 4 Mg Tab.rapdis 4 Mg PO BID PRN Biotin 10,000 Mcg Tab.rapdis 10,000 Mcg PO DAILY Pantoprazole Sodium 40 Mg Tablet.dr 40 Mg PO DAILY Clonazepam 1 Mg Tablet 1 Tab PO PRN BID PRN Vitals/I & O Vital Sign - Last 24 Hours 04/13/19 04/13/19 04/13/19 04/13/19 15:00 16:41 19:49 20:10 Temp 98.0 98.2 98.0 98.2 Pulse 68 98 Resp 20 18 B/P (MAP) 96/57 (70) 111/77 (88) Pulse Ox 95 95 96 O2 Delivery Room Air Room Air Room Air Room Air 04/13/19 04/13/19 04/13/19 04/14/19 20:25 22:52 23:00 02:05 Temp 98.1 98.1 Pulse 82 Resp 18 B/P (MAP) 94/62 (73) Pulse Ox 95 96 96 O2 Delivery Room Air Room Air Room Air Room Air 04/14/19 04/14/19 04/14/19 04/14/19 03:00 05:00 05:55 07:00 Temp 98.4 97.9 98.4 97.9 Pulse 77 87 Resp 18 14 B/P (MAP) 96/63 (74) 102/65 (77) Pulse Ox 98 98 98 98 O2 Delivery Room Air Room Air Room Air 04/14/19 04/14/19 04/14/19 04/14/19 08:00 08:11 09:18 10:58 Resp 20 20 20 O2 Delivery Room Air Room Air Room Air Room Air 04/14/19 11:00 Temp 97.5 97.5 Pulse 16 Resp 16 B/P (MAP) 116/80 (92) Pulse Ox 96 O2 Delivery Room Air Intake and Output 04/13/19 04/13/19 04/14/19 15:00 23:00 07:00 Intake Total 0 ml 0 ml 0 ml Output Total 900 ml Balance 0 ml -900 ml 0 ml ROBERT LIVINGSTON MD Apr 14, 2019 13:52
[2019-04-14 15:00] VITALS: BP 103/71
[2019-04-14] MEDS: ONDANSETRON PF 4 MG/2 ML VIAL. IV PRN (17:20)
[2019-04-14 19:44] VITALS: BP 99/77
[2019-04-14 23:33] VITALS: BP 113/73
[2019-04-15] MEDS: HYDROmorphone 2 MG/ML VIAL IV PRN ×5 (03:20→16:13)
[2019-04-15] MEDS: diphenhydrAMINE 50 MG/ML VIAL IVP PRN ×2 (03:22→10:37)
[2019-04-15] MEDS: ONDANSETRON PF 4 MG/2 ML VIAL. IV PRN (06:18)
[2019-04-15] MEDS: FUROSEMIDE 40 MG/4 ML VIAL. IVP SCH (09:41)
--- NOTE | 2019-04-15 10:29 | PDOC ---
PROGRESS NOTES Chief Complaint Chief Complaint Abdominal pain urinary retention noncompliance hypokalemia moderate malnutrition Patient describing urinary retention at times, she refers having a complicated anatomy not amenable for self cathing. Urology has signed off she has been fired from Dr Geovany Talley, for noncompliance, she did not follow in clinic and would go to the ER She was operated on 03/[address] Holt, I called his office and she has not c alled or been seen in his clinic. They were not aware she was in the hospital I will ask administration to help with this patient, she thinks I "made her not feel welcome" at this hospital, I asked why she wasn't following up where she just had MAJ[facility] SURGERY, and that she should consider going there. I also called Dr. Clementina Mayorga at [facility], Tube Cutter Operator minimally invasive surgeon, she would be willing to see. Phone is [phone] Severe Crohn's with multiple surgeries, ovarian cyst, PID, appendectomy, cholecystectomy, hysterectomy, oophorectomy, ileostomy, breast augmentation, multiple stoma revisions. History of Present Illness History of Present Illness Patient seen and examined no new complaints Discussed with RN Labs reviewed Vitals Vitals Vital Signs Date Time Temp Pulse Resp B/P (MAP) Pulse Ox O2 Delivery O2 Flow Rate FiO2 04/15/19 09:41 18 93 Room Air 04/14/19 23:33 97.6 85 113/73 (86) 97.6 Physical Exam General: Alert, Oriented X3, mild distress, moderate distress (pain, 10/10), Other (edematous) Heart: Regular rate, Normal S1, Normal S2 Lungs: Clear, Wheezing, Other Abdomen: Other (ostomy functioning tender) Extremities: No clubbing, No cyanosis Skin: No rashes, No breakdown Assessment and Plan Assessmemt and Plan Problems Medical Problems: (1) Abdominal pain Status: Acute (2) Anemia Status: Acute (3) Crohns disease Status: Acute (4) Hypokalemia Status: Acute (5) Sepsis Status: Acute Surgical Problems: (1) Post-operative state Status: Acute Comment Review of Relevant I have reviewed the following items kathy (where applicable) has been applied. Labs Microbiology 04/12/19 Urine Culture - Final, Complete 04/12/19 Urine Culture Result 1 (LIONEL) - Final, Complete Medications Current Medications Sodium Chloride 1,000 ml @ 1,000 mls/hr Q1H IV Last administered on 04/10/19at 23:07; Start 04/10/19 at 23:00; Stop 04/10/19 at 23:59; Status DC Ondansetron HCl (Zofran) 4 mg 1X ONCE IV Last administered on 04/10/19at 23:07; Start 04/10/19 at 23:00; Stop 04/10/19 at 23:01; Status DC Hydromorphone HCl (Dilaudid) 1 mg 1X ONCE IV Last administered on 04/10/19at 23:07; Start 04/10/19 at 23:00; Stop 04/10/19 at 23:01; Status DC Prochlorperazine Edisylate (Compazine) 10 mg 1X ONCE IV ; Start 04/10/19 at 23 :45; Stop 04/10/19 at 23:46; Status DC Diphenhydramine HCl (Benadryl) 50 mg 1X ONCE IVP Last administered on 04/11/19at 00:02; Start 04/10/19 at 23:55; Stop 04/10/19 at 23:56; Status DC Ceftriaxone Sodium (Rocephin) 1 gm 1X ONCE IVP Last administered on 04/11/19at 00:44; Start 04/11/19 at 00:15; Stop 04/11/19 at 00:16; Status DC Potassium Chloride/Water 100 ml @ 100 mls/hr Q1H IV Last administered on 04/11/19at 02:47; Start 04/11/19 at 00:30; Stop 04/11/19 at 02:29; Status DC Sodium Chloride 1,000 ml @ 1,000 mls/hr 1X ONCE IV Last administered on 04/11/19at 00:44; Start 04/11/19 at 00:15; Stop 04/11/19 at 01:14; Status DC Ondansetron HCl (Zofran) 4 mg PRN Q8HRS PRN IV NAUSEA/VOMITING Last administered on 04/11/19at 03:57; Start 04/11/19 at 00:30; Stop 04/11/19 at 03:58; Status DC Sodium Chloride 1,000 ml @ 150 mls/hr Q6H40M IV Last administered on 04/11/19at 18:29; Start 04/11/19 at 00:30; Stop 04/12/19 at 00:29; Status DC Hydromorphone HCl (Dilaudid) 1 mg PRN Q2HR PRN IV PAIN Last administered on 04/11/19 03:49; Start 04/11/19 at 00:30; Stop 04/11/19 at 03:49; Status DC Hydromorphone HCl (Dilaudid) 0.4 mg PRN Q3HRS PRN IVP PAIN Last administered on 04/11/19 11:42; Start 04/11/19 at 06:15; Stop 04/11/19 at 13:30; Status DC Ondansetron HCl (Zofran) 4 mg PRN Q6HRS PRN IV NAUSEA/VOMITING Last administered on 04/15/19 06:18; Start 04/11/19 at 06:15 Hydrocortisone (Cortaid) 1 hussain BID TP Last administered on 04/14/19 20:20; Start 04/11/19 at 10:00 Hydromorphone HCl (Dilaudid) 1 mg PRN Q3HRS PRN IV PAIN Last administered on 04/15/19 09:41; Start 04/11/19 at 13:30 Diphenhydramine HCl (Benadryl) 50 mg PRN Q6HRS PRN IVP ITCHING Last administered on 04/15/19 03:22; Start 04/11/19 at 18:00 Diatrizoate Meglumine (Cystografin Urethral) 300 ml 1X ONCE BLADIN Last administered on 04/12/19at 08:15; Start 04/12/19 at 08:15; Stop 04/12/19 at 08:16; Status DC Furosemide (Lasix) 40 mg DAILY IVP Last administered on 04/15/19 09:41; Start 04/13/19 at 11:00 Potassium Chloride (Klor-Con) 40 meq 1X ONCE PO ; Start 04/13/19 at 17:00; Stop 04/13/19 at 17:09; Status DC Potassium Chloride/Water 100 ml @ 100 mls/hr Q1H IV Last administered on 04/13/19 20:30; Start 04/13/19 at 17:30; Stop 04/13/19 at 21:29; Status DC Potassium Chloride/Dextrose/ Sod Cl 1,000 ml @ 100 mls/hr 1X ONCE IV Last administered on 04/15/19at 10:01; Start 04/15/19 at 10:30; Stop 04/15/19 at 20:29 Active Scripts Active Reported [dilaudid liquid] 1.5 Mg PO PRN Q8HRS PRN [vitamin B12 inject.] MONTHLY Vitamin D3 (Cholecalciferol (Vitamin D3)) 5,000 Unit Tablet 5,000 Unit PO WEEKLY Tablet (Pnv Cmb#95/Ferrous Fumarate/Fa) 1 Each Tablet 1 Tab PO DAILY Benadryl (Diphenhydramine Hcl) 25 Mg Capsule 25 Mg PO PRN Q4-6HRS PRN Zofran Odt (Ondansetron) 4 Mg Tab.rapdis 4 Mg PO BID PRN Biotin 10,000 Mcg Tab.rapdis 10,000 Mcg PO DAILY Pantoprazole Sodium 40 Mg Tablet.dr 40 Mg PO DAILY Clonazepam 1 Mg Tablet 1 Tab PO PRN BID PRN Vitals/I & O Vital Sign - Last 24 Hours 04/14/19 04/14/19 04/14/19 04/14/19 10:58 11:00 14:11 14:41 Temp 97.5 97.5 Pulse 16 Resp 20 16 20 20 B/P (MAP) 116/80 (92) Pulse Ox 96 O2 Delivery Room Air Room Air Room Air 04/14/19 04/14/19 04/14/19 04/14/19 15:00 17:20 19:44 20:00 Temp 97.8 98.0 97.8 98.0 Pulse 88 99 Resp 14 20 18 B/P (MAP) 103/71 (82) 99/77 (84) Pulse Ox 97 95 O2 Delivery Room Air Room Air Room Air Room Air 04/14/19 04/14/19 04/14/19 04/15/19 20:08 23:21 23:33 03:20 Temp 97.6 97.6 Pulse 85 Resp 16 B/P (MAP) 113/73 (86) Pulse Ox 93 O2 Delivery Room Air Room Air Room Air Room Air 04/15/19 04/15/19 04/15/19 04/15/19 03:33 06:20 06:50 09:41 Resp 18 Pulse Ox 93 O2 Delivery Room Air Room Air Room Air Room Air Intake and Output 04/14/19 04/14/19 04/15/19 14:59 22:59 06:59 Intake Total 110 ml Output Total 50 ml Balance -50 ml 110 ml ABI MAHAN MD Apr 15, 2019 10:29
[2019-04-15] MEDS ORDERED: POTASSIUM CL 20MEQ D5-0.45NACL 1,000 ML IV ONE (10:30)
[2019-04-15] MEDS: HYDROCORTISONE 1% TOPICAL CREAM 30GM TUBE. TP SCH (10:36)
[2019-04-15 11:13] VITALS: BP 111/89
--- NOTE | 2019-04-15 12:14 | SNU/HH DC ---
DISCHARGE WITH HOME HEALTH DISCHARGE INFORMATION: Discharge Date: Apr 15, 2019 Final Diagnosis: Problems Medical Problems: (1) Abdominal pain Status: Acute (2) Anemia Status: Acute (3) Crohns disease Status: Acute (4) Hypokalemia Status: Acute (5) Sepsis Status: Acute Surgical Problems: (1) Post-operative state Status: Acute Condition on Discharge: Stable CODE STATUS: Code Status: Full HOME HEALTH: Face to Face: I certify this patient is under my care and that I, or a nurse practitioner or physician's design assistant working with me, had a face to face encounter that meets the physician face to face encounter requirements with this patient on 04/15 Medical Complications: Other Assisted For: IV Infusion Therapy RN For Eval/Treatment: Yes Pt Meets Homebound Status: Psychological condition POST DISCHARGE ORDERS: Activity Instructions for Disc: Activity as tolerated Weight Bearing Status after Di: As tolerated DIET AFTER DISCHARGE: Wound/Incision Care: No wound care needed CHECKS AFTER DISCHARGE: Checks after discharge: Check your Temp as needed FOLLOW-UP: Follow up with: Dr. Holt Follow Up With: Dr. Mayorga TREATMENT/EQUIPMENT ORDERS: Adaptive Equipment Issued: None CERTIFICATION STATEMENT: Certification Statement: Certification Statement: Based on the above finding, I certify that this patient is confined to the home and needs intermittent intermediate care, physical therapy and/or speech therapy, or continues to need occupational therapy.~ This patient is under my care, and I have initiated the establishment of the plan of care.~ This patient will be followed by myself or a community physician who will periodically review the plan of care. Home Meds Reported Medications [dilaudid liquid] No Conflict Check, 1.5 MG PO PRN Q8HRS PRN for PAIN 02/24/19 [vitamin B12 inject.] No Conflict Check, monthly for supplement 02/24/19 Cholecalciferol (Vitamin D3) (VITAMIN D3) 5,000 Unit Tablet, 5000 UNIT PO WEEKLY for supplement, TAB 02/24/19 Pnv Cmb#95/Ferrous Fumarate/Fa ( TABLET) 1 Each Tablet, 1 TAB PO DAILY for supplement, #90 TAB 3 Refills 02/24/19 Diphenhydramine Hcl (BENADRYL) 25 Mg Capsule, 25 MG PO PRN Q4-6HRS PRN for HIV ES, CAP 08/18/17 Ondansetron (ZOFRAN ODT) 4 Mg Tab.rapdis, 4 MG PO BID PRN for NAUSEA/VOMITING, TAB 08/18/17 Biotin (Biotin) 10,000 Mcg Tab.rapdis, 47984 MCG PO DAILY, TAB 08/18/17 Pantoprazole Sodium (PANTOPRAZOLE SODIUM) 40 Mg Tablet.dr, 40 MG PO DAILY, TAB 08/05/14 Clonazepam (CLONAZEPAM) 1 Mg Tablet, 1 TAB PO PRN BID PRN for ANXIETY / AGITATION, TAB 08/05/14 Discontinued Reported Medications Simethicone (Simethicone) 125 Mg Capsule, 125 MG PO PRN DAILY PRN for reflux, CAP 08/18/17 ABI MAHAN MD Apr 15, 2019 12:14
--- NOTE | 2019-04-15 12:30 | NUR ---
Patient stated that she was having abdominal pain and felt that her bladder was full. This nurse obtained a bladder scan and ready 460 mL. The patient stated she would like to try to empty her own bladder before attempting to catheterize. The patient then called this nurse to the room and had voided 150 mL. The patient refused a straight cath and stated she was going to attempt to empty bladder on her own. She stated that it was too hard to catheterize and she did not want that. This nurse attempted two more times with no luck.
--- NOTE | 2019-04-15 12:43 | NUR ---
SW following. Discussed with RN, pt being discharged home today with [facility] for TPN and home health (ph: [phone], fax: [phone]). SW phoned and faxed discharge paperwork. Verbal order for TPN can be given by RN over the phone. SW had RN contacted [facility] to provide verbal confirmation to have TPN continued at home. Pt being collected by at 1500. No further SW needs.
[2019-04-15 15:00] VITALS: BP 108/79
[2019-04-15] MEDS ORDERED: HEPARIN PF 500 UNIT/5 ML DISP.SYRIN. IV ONE (18:00)
--- NOTE | 2019-04-15 18:29 | NUR ---
Discharge Note: MATTHEW HOLGUIN Discharge instructions and discharge home medications reviewed with Patient and a copy given. All questions have been answered and understanding verbalized. The following instructions and handouts were given: Discharge Instructions, Discontinued lines and drains: Right Chest Port De-accessed. Patient discharged to Home via Private Vehicle
== END 2019-04-15 19:04 | disposition home health service (06) | DRG 872 ==
LOC: ER 21:41 → 6 SOUTH 04-11 00:01 → 4 NORTH 04-13 20:13
PROVIDERS: ADMIT Internal Medicine; ATTEND Internal Medicine
PROC: BT101ZZ Fluoroscopy of Bladder using Low Osmolar Contrast (ICD-10-PCS; principal; 2019-04-12)
DX: A41.9 Sepsis, unspecified organism (principal); K50.90 Crohn's disease, unspecified, without complications; E44.0 Moderate protein-calorie malnutrition; E87.6 Hypokalemia; R31.0 Gross hematuria; D64.9 Anemia, unspecified; K42.9 Umbilical hernia without obstruction or gangrene; N30.11 Interstitial cystitis (chronic) with hematuria; N73.9 Female pelvic inflammatory disease, unspecified; N83.209 Unspecified ovarian cyst, unspecified side; Z90.49 Acquired absence of other specified parts of digestive tract; Z90.710 Acquired absence of both cervix and uterus; Z91.19 Patient's noncompliance with other medical treatment and regimen; Z88.8 Allergy status to other drugs, medicaments and biological substances; Z79.899 Other long term (current) drug therapy; Z90.721 Acquired absence of ovaries, unilateral; Z68.24 Body mass index [BMI] 24.0-24.9, adult; K21.9 Gastro-esophageal reflux disease without esophagitis
CPT/HCPCS: 36415; 74176; 74430; 80053; 80307; 81001; 83605; 83690; 85025; 85610; 87086; 96361; 96374; 96375; J0696; J1170; J1200; J1940; J2405; J3480; J7030; Q9958; 99285-25